=== PATIENT | female | born 1935 | race Caucasian/White ===

== ENCOUNTER 2022-05-20 19:55 | Outpatient (CLI) | payer MEDICARE, OTHER, SELFPAY | END 2022-05-20 19:56 | disposition home or self-care (01) | LOC: AMB 05-24 10:56 | PROVIDERS: PCP Internal Medicine; Visit Provider Emergency Medicine Emergency Medical Services | DX: I49.9 Cardiac arrhythmia, unspecified (principal); R42 Dizziness and giddiness | CPT/HCPCS: A0425; A0427 ==

== ENCOUNTER 2022-05-20 20:31 | Emergency (ER) | payer MEDICARE, OTHER, SELFPAY ==
[2022-05-20] VITALS (12 sets, daily range): BP systolic 119–143; BP diastolic 60–94; PULSE 68–99; RESP 10–14; TEMP 35.7; O2SAT 93–98; BMI 27.8
--- NOTE | 2022-05-20 20:56 | ED_ITS ---
HPI - Chest Pain General Time Seen by Provider: 20:57 Date Seen: 05/20/22 Chief Complaint: Chest Pain Stated Complaint: Heart problems Time Seen by Provider: 05/20/22 20:40 Source: patient Mode of arrival: EMS Limitations: no limitations History of Present Illness HPI narrative: Patient is a very pleasant 87-year-old female with history of hypertension who comes to the emergency room for evaluation regarding rapid heart rate. Patient was noted to have had a glass of wine with a neighbor this evening. She returned home ate supper and had the sudden onset of a rapid heart rate. She notes no chest pain or shortness of breath but certainly did cause her anxiety. She has never had this happen to his sustained phase in the past. Has no history of atrial fibrillation, atrial flutter or history of [place]. she has just recently started on a new medication for her hypertension, amlodipine. She has not been ill and she has not had fever or chills. No recent illness with COVID or vomiting. EMS arrived and noted rapid heart rate fortunately with Valsalva maneuvers they were able to convert patient to a sinus rhythm. She notes that she feels completely fine now and has no chest pain, shortness of breath, nausea, dizziness or lightheadedness. Ms. Gutierres is a [facility] . She currently sees Dr. Mohan for care [facility] Related Data Home Medications Medication Instructions Recorded Confirmed amlodipine 2.5 mg tablet mg 05/20/22 anastrozole 1 mg tablet mg 05/20/22 atorvastatin 80 mg tablet mg 05/20/22 hydrochlorothiazide 25 mg tablet 12.5 mg 05/20/22 lisinopril 40 mg tablet 20 mg 05/20/22 metoprolol succinate 25 mg mg PO 05/20/22 tablet,extended release 24 hr omeprazole 20 mg capsule,delayed mg 05/20/22 release Allergies Allergy/AdvReac Type Severity Reaction Status Date / Time No Known Drug Allergies Allergy Verified 05/20/22 20:44 Review of Systems Status of ROS Reports: 10 or more systems reviewed and unremarkable except as noted in History and below Const Denies: fever, chills or fatigue Eyes Denies: change in vision ENMT Denies: throat pain, neck pain, throat swelling or difficulty swallowing Cardio Denies: chest pain or shortness of breath with exertion Resp Denies: shortness of breath, cough or wheezing GI Reports: diarrhea (Occasionally with certain foods); Denies: abdominal pain, nausea, vomiting or difficulty swallowing Denies: painful urination or urinary frequency Musculo Denies: neck pain Integ/Breast Denies: rash Neuro Denies: headache, numbness in extremities or weakness in extremities Endo Denies: fatigue Allergy/Immuno Denies: throat swelling or wheezing PFSH PFSH Social History Smoking Status: Never smoker How often do you have a drink containing alcohol: 2-3 times a week How many standard drinks containing alcohol do you have on a typical day: 1 or 2 How often do you have six or more drinks on one occasion: Never AUDIT-C Alcohol total score: 3 Non-prescribed substance use: denies use Exam Narrative Exam Narrative: Mixed incontinence Pre-diabetes 09/2012 115@[facility] Obstructive sleep apnea Dxed summer 2012, followed by Dr. 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 [facility].This was found at the [facility] scan, and went from 4 cm to 4.6 cm. 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 Const Vital Signs, click to edit/add: Vital Signs - 24 hr 05/20/22 20:39 05/20/22 21:00 05/20/22 21:30 Temperature 96.2 F L Pulse Rate Pulse Rate [Left Pulse Oximeter] 99 90 90 Respiratory Rate 13 14 Blood Pressure Blood Pressure [Right Upper Arm] 134/69 121/81 121/94 H Pulse Oximetry 97 98 98 Oxygen Delivery Method Room Air Room Air Room Air 05/20/22 22:00 05/20/22 22:19 05/20/22 22:30 Temperature Pulse Rate 74 69 Pulse Rate [Left Pulse Oximeter] 79 Respiratory Rate 10 L Blood Pressure Blood Pressure [Right Upper Arm] 135/66 Pulse Oximetry 93 94 96 Oxygen Delivery Method Room Air 05/20/22 22:32 05/20/22 22:45 05/20/22 23:25 Temperature Pulse Rate 69 68 75 Pulse Rate [Left Pulse Oximeter] Respiratory Rate Blood Pressure 143/68 H Blood Pressure [Right Upper Arm] Pulse Oximetry 93 94 97 Oxygen Delivery Method 05/20/22 23:30 05/20/22 23:32 05/20/22 23:45 Temperature Pulse Rate 84 78 82 Pulse Rate [Left Pulse Oximeter] Respiratory Rate Blood Pressure 119/60 Blood Pressure [Right Upper Arm] Pulse Oximetry 96 95 94 Oxygen Delivery Method Patient is a very pleasant 87-year-old female looking younger than her stated age. She is nontoxic in appearance. Her neck is supple. She is mentating normally. Heart with regular rate and rhythm without murmur or rub. Lungs are clear bilaterally. Abdomen soft nontender. Lower extremities with scant peripheral edema. Moving all extremities. Documenting provider has reviewed patient's vital signs: yes Course Course Hospital Course: At this time will obtain CBC, comprehensive panel, troponin, EKG. 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 Patient appears to have resolved SVT based on rhythm strip from EMS. Will give 500 mL normal saline while awaiting laboratory values. Chest x-ray has also been ordered. Reevaluation(s) Reevaluation #1: Patient continues to be asymptomatic. She is informed that her potassium is low at 3.1 and relative deficiency of magnesium at 1.8. Vital Signs Vital signs: Initial Vital Signs Temperature 96.2 F L 05/20/22 20:39 Temperature Source Temporal Artery Scan 05/20/22 20:39 Pulse Rate 99 05/20/22 20:39 Blood Pressure 134/69 05/20/22 20:39 Blood Pressure Mean 90 05/20/22 20:39 Blood Pressure Position Supine 05/20/22 20:39 Pulse Oximetry 97 05/20/22 20:39 Oxygen Delivery Method 05/20/22 20:39 Vital Signs Temperature 96.2 F L 05/20/22 20:39 Pulse Rate 99 05/20/22 20:39 Blood Pressure 134/69 05/20/22 20:39 Pulse Oximetry 97 05/20/22 20:39 Oxygen Delivery Method 05/20/22 20:39 Temperature 96.2 F L 05/20/22 20:39 Pulse Rate 82 05/20/22 23:45 Respiratory Rate 10 L 05/20/22 22:00 Blood Pressure 119/60 05/20/22 23:32 Pulse Oximetry 94 05/20/22 23:45 Oxygen Delivery Method 05/20/22 22:00 MDM - Chest Pain MDM Narrative Medical decision making narrative: 1. SVT resolved -patient has had no further symptoms here. Troponin is negative. EKG shows sinus rhythm without any abnormalities. This is not happened to the patient in the past. She is back in a regular rhythm. Would continue to monitor at this point. Of note she has a magnesium level which is technically normal at 1.8 but relatively low in the setting of an arrhythmia. Therefore will give her 400 mg of p.o. magnesium at this time. Would have her continue magnesium daily at home. Patient has no persistent tachycardia or hypoxia to suggest PE. She has no chest pain or EKG changes to suggest acute coronary syndrome causing the SVT. She does have recent alcohol use in the setting of some mild hypokalemia. 2. Hypokalemia mild-level is at 3.1. Will replace with 50 mEq of potassium p.o. x1. 3. Left lung nodule-further assessment with CT with primary MD. copy of the [facility] x-ray and report given to patient to follow-up at the [facility]. She may need CT or if they are able to compare to previous x-ray we may be able to prove that this is stable. 4. Disposition-home at this time. Right now we are trying to find out how to get patient back to her home as there are no tact he is running, the roads are quite poor. Medical Records Data Attestation: I reviewed the patient's medical records. Lab Data Attestation: I reviewed the patient's lab results. Labs: Lab Results 05/20/22 05/20/22 05/20/22 Range/Units 21:05 21:05 21:20 WBC 6.16 (4.50-11.00) K/uL RBC 4.53 (4.00-5.20) m/uL Hgb 13.2 (12.0-16.0) gm/dL Hct 38.8 (33.0-51.0) % MCV 86 (80-100) fL MCH 29 (26-34) pg MCHC 34 (32-36) gm/dL RDW Coeff of [place] 13.6 (11.5-15.5) % Plt Count 198 (140-440) K/uL Neut % (Auto) 58.5 (42.0-72.0) % Lymph % (Auto) 30.7 (20-44) % [place] % (Auto) 6.8 (0.0-11.0) % Eos % (Auto) 3.4 (0.0-7.0) % Baso % (Auto) 0.3 (0.0-3.0) % Neut # (Auto) 3.60 (1.7-7.0) K/uL Lymph # (Auto) 1.89 (0.90-2.90) K/uL [place] # (Auto) 0.40 (0.00-0.90) K/UL Eos # (Auto) 0.21 (0.00-0.50) K/uL Baso # (Auto) 0.02 (0.00-0.30) K/uL Sodium (135-149) mmol/L Potassium (3.6-5.1) mmol/L Chloride (96-114) mmol/L Carbon Dioxide (20-32) mmol/L BUN (7-30) mg/dL Creatinine (0.5-1.5) mg/dL Estimated Creat Clear Estimated GFR ml/min Glucose (60-115) mg/dL Calcium (8.4-10.6) mg/dL Magnesium (1.5-2.6) mg/dL Total Bilirubin (0.1-1.5) mg/dL AST (12-35) U/L ALT (4-35) U/L Alkaline Phosphatase (40-150) U/L C-Reactive Protein (0.5-1.0) mg/dL Total Protein (6.0-8.3) g/dL Albumin (3.3-5.0) g/dL SARS-CoV-2 (PCR) Negative SARS-CoV-2 (Negative) Influenza Type A (PCR) Negative PCR FLU A (Negative) Influenza Type B (PCR) Negative PCR FLU B (Negative) RSV (PCR) Negative PCR RSV (Negative) POC Troponin I 0.00 L (0.01-0.04) ng/ml 05/20/22 Range/Units 21:20 WBC (4.50-11.00) K/uL RBC (4.00-5.20) m/uL Hgb (12.0-16.0) gm/dL Hct (33.0-51.0) % MCV (80-100) fL MCH (26-34) pg MCHC (32-36) gm/dL RDW Coeff of [place] (11.5-15.5) % Plt Count (140-440) K/uL Neut % (Auto) (42.0-72.0) % Lymph % (Auto) (20-44) % [place] % (Auto) (0.0-11.0) % Eos % (Auto) (0.0-7.0) % Baso % (Auto) (0.0-3.0) % Neut # (Auto) (1.7-7.0) K/uL Lymph # (Auto) (0.90-2.90) K/uL [place] # (Auto) (0.00-0.90) K/UL Eos # (Auto) (0.00-0.50) K/uL Baso # (Auto) (0.00-0.30) K/uL Sodium 135 (135-149) mmol/L Potassium 3.1 L (3.6-5.1) mmol/L Chloride 103 (96-114) mmol/L Carbon Dioxide 26 (20-32) mmol/L BUN 14 (7-30) mg/dL Creatinine 0.6 (0.5-1.5) mg/dL Estimated Creat Clear 34.23 Estimated GFR 87 ml/min Glucose 132 H (60-115) mg/dL Calcium 8.9 (8.4-10.6) mg/dL Magnesium 1.8 (1.5-2.6) mg/dL Total Bilirubin 0.6 (0.1-1.5) mg/dL AST 30 (12-35) U/L ALT 26 (4-35) U/L Alkaline Phosphatase 88 (40-150) U/L C-Reactive Protein < 0.5 L (0.5-1.0) mg/dL Total Protein 6.5 (6.0-8.3) g/dL Albumin 3.5 (3.3-5.0) g/dL SARS-CoV-2 (PCR) (Negative) Influenza Type A (PCR) (Negative) Influenza Type B (PCR) (Negative) RSV (PCR) (Negative) POC Troponin I (0.01-0.04) ng/ml Imaging Data Chest x-ray: Attestation: I have reviewed the pertinent imaging results. My impression: Chronic lung markings. Radiologist's impression: Cardiovascular and mediastinum:? Cardiomediastinal silhouette is within normal limits.? Lungs and pleural spaces:? Lungs are clear. Previously identified 14 millimeter nodule in the left upper lobe is not well visualized on the current examination. No imaging available since October 06, 2020 for comparison. If further evaluation is clinically indicated, consider CT of the chest. No evidence of pleural effusion.? No pneumothorax identified.? Bones and soft tissues:? Unremarkable. ? IMPRESSION: No acute cardiopulmonary process identified. No significant interval change. ECG Data Attestation: I personally reviewed and interpreted this ECG as follows: ECG interpretation date: 05/20/22 Interpretation: EKG by my read shows sinus rhythm at a rate of 90. I do not note any acute ST or T-wave changes. Rather poor R-wave progression is noted. Discharge Plan Discharge Clinical Impression: Lung nodule, SVT (supraventricular tachycardia), Acute hypokalemia Additional Instructions: [facility] We will provide a copy of the x-ray for you to take with. Suggest continuing magnesium on a daily basis. Increase fluids. Seek medical attention for chest pain, rapid heart rate and as needed. Prescriptions: No Action anastrozole 1 mg tablet Label Comments: TAKE 1 TABLET BY MOUTH EVERY DAY atorvastatin 80 mg tablet amlodipine 2.5 mg tablet hydrochlorothiazide 25 mg tablet 12.5 mg lisinopril 40 mg tablet 20 mg omeprazole 20 mg capsule,delayed release(DR/EC) metoprolol succinate 25 mg tablet extended release 24 hr PO Label Comments: TAKE 1 TABLET BY MOUTH EVERYDAY AT BEDTIME Follow Up/Referrals: Marisela Hurt MD [Primary Care Provider] -
--- NOTE | 2022-05-20 21:05 | CRLHL7_ITS ---
For Patients: As a result of the Cures Act, medical imaging exams and procedure reports are released immediately into your electronic medical record. You may view this report before your referring provider. If you have questions, please contact your health care provider. INDICATION: SVT. TECHNIQUE: Chest 1 view. COMPARISON: CT of the chest from October 06, 2020.. FINDINGS: Cardiovascular and mediastinum: Cardiomediastinal silhouette is within normal limits. Lungs and pleural spaces: Lungs are clear. Previously identified 14 millimeter nodule in the left upper lobe is not well visualized on the current examination. No imaging available since October 06, 2020 for comparison. If further evaluation is clinically indicated, consider CT of the chest. No evidence of pleural effusion. No pneumothorax identified. Bones and soft tissues: Unremarkable. IMPRESSION: No acute cardiopulmonary process identified. No significant interval change. Dictated by Keri Smith MD @ 05/20/2022 10:14:26 PM (Electronically Signed)
[2022-05-20 21:36] LABS: Basophils Absolute Auto 0.02 K/uL (0.00-0.30); Basophils Percent Auto 0.3 % (0.0-3.0); Eosinophils Absolute Auto 0.21 K/uL (0.00-0.50); Eosinophils Percent Auto 3.4 % (0.0-7.0); Hematocrit 38.8 % (33.0-51.0); Hemoglobin* 13.2 gm/dL (12.0-16.0); Immature Granulocytes Abs Auto 0.02 K/uL (0.00-0.30); Immature Granulocytes Pct Auto 0.3 %; Lymphocytes Absolute Auto 1.89 K/uL (0.90-2.90); Lymphocytes Percent Auto 30.7 % (20-44); Mean Corpuscular HGB Conc 34 gm/dL (32-36); Mean Corpuscular Hemoglobin 29 pg (26-34); Mean Corpuscular Volume 86 fL (80-100); Monocytes Percent Auto 6.8 % (0.0-11.0); Neutrophils Percent Auto 58.5 % (42.0-72.0); Platelet Count* 198 K/uL (140-440); RDW Coefficient of Variation % 13.6 % (11.5-15.5); Red Blood Count 4.53 m/uL (4.00-5.20); White Blood Count* 6.16 K/uL (4.50-11.00)
[2022-05-20 21:39] LABS: Slide Review Reflex No
[2022-05-20 21:56] LABS: Albumin* 3.5 g/dL (3.3-5.0); Chloride* 103 mmol/L (96-114); Potassium* 3.1 mmol/L (3.6-5.1); Sodium* 135 mmol/L (135-149)
[2022-05-20 21:57] LABS: PCR FLU A Negative PCR FLU A (Negative); PCR FLU B Negative PCR FLU B (Negative); PCR RSV Negative PCR RSV (Negative); SARS PCR* Negative SARS-CoV-2 (Negative)
[2022-05-20 21:58] LABS: Bilirubin Total* 0.6 mg/dL (0.1-1.5); Creatinine* 0.6 mg/dL (0.5-1.5); Est. Creatinine Clearance* 34.23; Estimated Glomerular Filt Rate 87 ml/min
[2022-05-20 21:59] LABS: Alanine Aminotransferase* 26 U/L (4-35); Alkaline Phosphatase* 88 U/L (40-150); Aspartate Amino Transferase* 30 U/L (12-35); Blood Urea Nitrogen* 14 mg/dL (7-30); Carbon Dioxide* 26 mmol/L (20-32); Total Protein* 6.5 g/dL (6.0-8.3)
[2022-05-20 22:00] LABS: Calcium* 8.9 mg/dL (8.4-10.6); Glucose* 132 mg/dL (60-115); Magnesium* 1.8 mg/dL (1.5-2.6)
[2022-05-20] MEDS: 0.9 % SODIUM CHLORIDE 500 ML 500 ML IV (22:00)
[2022-05-20 22:03] LABS: C Reactive Protein* < 0.5 mg/dL (0.5-1.0)
[2022-05-20] MEDS: POTASSIUM BICARB 25 MEQ EFFERVESCENT TAB 50 MEQ PO (23:00)
[2022-05-20] MEDS: MAGNESIUM OXIDE 400 MG TABLET PO (23:08)
[2022-05-21 00:15] VITALS: BP 135/66; PULSE 79; RESP 16; TEMP 36.7
== END 2022-05-21 00:15 | disposition home or self-care (01) ==
LOC: ED 21:13
PROVIDERS: Emergency Provider Family Medicine; PCP Internal Medicine
DX: E87.6 Hypokalemia (principal); I47.1 Supraventricular tachycardia; R91.1 Solitary pulmonary nodule
CPT/HCPCS: 36415; 71045; 80053; 83735; 84484; 85025; 86140; 87502; 87634; 87635; 93005; 94761; 99284; 99285; A9270; J7120

== ENCOUNTER 2023-03-31 14:34 | Emergency (ER) | payer MEDICARE, OTHER, SELFPAY ==
[2023-03-31 14:41] VITALS: BP 128/80; PULSE 81; RESP 18; TEMP 36.6; O2SAT 95; BMI 28.0
[2023-03-31 15:15] LABS: Appearance Urine Clear (Clear); Bilirubin Urine Negative (Negative); Blood Urine 3+ (Negative); Color Urine Yellow (Yellow); Glucose Urine Negative (Negative); Ketones Urine Negative (Negative); Leukocyte Esterase Urine 3+ (Negative); Nitrite Urine Negative (Negative); Protein Urine 3+ (Negative); Specific Gravity Urine >= 1.030 (1.000-1.030)
[2023-03-31 15:22] LABS: RBC Urine 25-50 (0-2); WBC Urine >100 (0-5)
--- NOTE | 2023-03-31 15:22 | ED.GENADULT ---
HPI - General Adult General Chief complaint: Urogenital Problems, Female Stated complaint: Bladder infection Time Seen by Provider: 03/31/23 14:38 Source: patient Mode of arrival: ambulatory Limitations: no limitations History of Present Illness HPI narrative: 88-year-old female presenting today with dysuria, increased urgency and some incontinence. Symptoms started early this morning. She denies any systemic symptoms. States that she has had UTIs made times in the past and this feels very similarly to previous UTIs. Has no other concerns. Related Data Home Medications Medication Instructions Recorded Confirmed amlodipine 2.5 mg tablet 2.5 mg 05/20/22 anastrozole 1 mg tablet 1 mg 05/20/22 atorvastatin 80 mg tablet 80 mg 05/20/22 hydrochlorothiazide 25 mg tablet 12.5 mg PO 05/20/22 lisinopril 40 mg tablet 20 mg PO 05/20/22 metoprolol succinate 25 mg 50 mg PO 05/20/22 tablet,extended release 24 hr omeprazole 20 mg capsule,delayed 20 mg 05/20/22 release Previous Rx's Medication Instructions Recorded cephalexin 500 mg capsule 500 mg PO BID #10 caps 10/22/22 Allergies Allergy/AdvReac Type Severity Reaction Status Date / Time No Known Drug Allergies Allergy Verified 05/20/22 20:44 Review of Systems Status of ROS: Reports: 10 or more systems reviewed and unremarkable except as noted in History and below [facility] Social History Smoking Status: Never smoker How often do you have a drink containing alcohol: 2-3 times a week How many standard drinks containing alcohol do you have on a typical day: 1 or 2 How often do you have six or more drinks on one occasion: Never AUDIT-C Alcohol total score: 3 Non-prescribed substance use: denies use Exam Narrative: Exam Narrative: Well-nourished well-developed patient in no acute distress. Alert and oriented. Answers questions appropriately. Mood and affect are appropriate. Thoughts are goal oriented and rational. No tangential or magical thinking noted. Patient speaks in full sentences without needing to catch her breath. HEENT: Normocephalic atraumatic. Pupils are equally round reactive to light. Extraocular muscles are intact. Conjunctivae are moist without any icterus noted. Moist mucous membranes. Abdomen: Soft and nontender nondistended with normal bowel sounds. No guarding or rebound. No CVA tenderness. Skin: Well perfused without any obvious rashes. Const: Vital Signs, click to edit/add: Vital Signs - 24 hr 03/31/23 14:41 Temperature 97.9 F Pulse Rate [Pulse Oximeter] 81 Respiratory Rate 18 Blood Pressure [Ri ght Upper Arm] 128/80 Pulse Oximetry 95 Oxygen Delivery Me thod Room Air Course Course ED Course: UA grossly positive for signs of infection. Vital Signs Vital signs: Initial Vital Signs Temperature 97.9 F 03/31/23 14:41 Temperature Source Temporal Artery Scan 03/31/23 14:41 Pulse Rate 81 03/31/23 14:41 Respiratory Rate 18 03/31/23 14:41 Blood Pressure 128/80 03/31/23 14:41 Blood Pressure Mean 96 03/31/23 14:41 Pulse Oximetry 95 03/31/23 14:41 Oxygen Delivery Method Room Air 03/31/23 14:41 Vital Signs Temperature 97.9 F 03/31/23 14:41 Pulse Rate 81 03/31/23 14:41 Respiratory Rate 18 03/31/23 14:41 Blood Pressure 128/80 03/31/23 14:41 Pulse Oximetry 95 03/31/23 14:41 Oxygen Delivery Method Room Air 03/31/23 14:41 Temperature 97.9 F 03/31/23 14:41 Pulse Rate 81 03/31/23 14:41 Respiratory Rate 18 03/31/23 14:41 Blood Pressure 128/80 03/31/23 14:41 Pulse Oximetry 95 03/31/23 14:41 Oxygen Delivery Method Room Air 03/31/23 14:41 Medical Decision Making [facility] Narrative Medical decision making narrative: 88-year-old female with UTI. Will treat with Keflex 500 b.i.d. which is what she has had in the past with success. Urine cultures pending. Lab Data Lab results reviewed: Yes I reviewed the patient's lab results Labs: Lab Results 03/31/23 Range/Units 14:25 Urine Color Yellow (Yellow) Urine Appearance Clear (Clear) Urine pH 7.0 (5.0-8.5) Ur Specific [place] >= 1.030 (1.000-1.030) Urine Protein 3+ A (Negative) Urine Glucose (UA) Negative (Negative) Urine Ketones Negative (Negative) Urine Blood 3+ A (Negative) Urine Nitrite Negative (Negative) Urine Bilirubin Negative (Negative) Urine Urobilinogen 1.0 (0.2-1.0) Ur Leukocyte Esterase 3+ A (Negative) Discharge Plan Discharge Clinical Impression: Urinary tract infection Patient Disposition: Home, Self-Care Condition: Stable Additional Instructions: Take all antibiotics as prescribed-you should take this medication for total of 5 days. Follow-up with your primary care provider if you feel like you are not improving. Return to the ER if you develop a fever. Antibiotics sent to [facility]. Prescriptions: No Action anastrozole 1 mg tablet 1 mg Patient Comments: TAKE 1 TABLET BY MOUTH EVERY DAY atorvastatin 80 mg tablet 80 mg amlodipine 2.5 mg tablet 2.5 mg hydrochlorothiazide 25 mg tablet 12.5 mg PO lisinopril 40 mg tablet 20 mg PO omeprazole 20 mg capsule,delayed release(DR/EC) 20 mg metoprolol succinate 25 mg tablet extended release 24 hr 50 mg PO Patient Comments: TAKE 1 TABLET BY MOUTH EVERYDAY AT BEDTIME cephalexin 500 mg capsule 500 mg PO BID Qty: 10 0RF Follow Up/Referrals: Provider,Not a Local [Primary Care Provider] - Stand Alone Forms: [employer] Info Instructions
[2023-03-31 15:23] LABS: Bacteria Urine Few; Squamous Epithelial Cell Urine Few (None-Few); WBC Clumps Urine Moderate
== END 2023-03-31 15:55 | disposition home or self-care (01) ==
PROVIDERS: Emergency Provider Family Medicine
DX: N39.0 Urinary tract infection, site not specified (principal)
CPT/HCPCS: 81001; 87086; 87186; 99283

== ENCOUNTER 2023-05-24 16:04 | Emergency (ER) | payer MEDICARE, OTHER, SELFPAY ==
[2023-05-24 16:08] VITALS: BP 150/79; PULSE 75; RESP 18; TEMP 35.6; O2SAT 98; BMI 27.5
[2023-05-24 16:30] LABS: Appearance Urine Slightly Cloudy (Clear); Bilirubin Urine Negative (Negative); Blood Urine Trace-intact (Negative); Color Urine Yellow (Yellow); Glucose Urine Negative (Negative); Ketones Urine Negative (Negative); Leukocyte Esterase Urine 2+ (Negative); Nitrite Urine Negative (Negative); Protein Urine Negative (Negative); Urobilinogen Urine 0.2 (0.2-1.0)
[2023-05-24 17:24] LABS: Bacteria Urine Few; Squamous Epithelial Cell Urine Few (None-Few)
--- NOTE | 2023-05-24 19:40 | ED.GENADULT ---
HPI - General Adult General Date Seen: 05/24/23 Chief complaint: Urogenital Problems, Female Stated complaint: bladder infection Time Seen by Provider: 05/24/23 17:59 Source: patient Mode of arrival: ambulatory Limitations: no limitations History of Present Illness HPI narrative: Patient presents for onset of urinary symptoms earlier today including dysuria, frequency urgency. She says she waits long enough she will get hematuria but she does not have hematuria yet. No fevers, nausea, vomiting, chills, flank pain. She says UTIs are frequent for and this feels like a UTI. Related Data Home Medications Medication Instructions Recorded Confirmed anastrozole 1 mg tablet 1 mg 05/20/22 atorvastatin 80 mg tablet 80 mg 05/20/22 hydrochlorothiazide 25 mg tablet 12.5 mg PO 05/20/22 lisinopril 40 mg tablet 20 mg PO 05/20/22 metoprolol succinate 25 mg 50 mg PO 05/20/22 tablet,extended release 24 hr omeprazole 20 mg capsule,delayed 20 mg 05/20/22 release Previous Rx's Medication Instructions Recorded cephalexin 500 mg capsule 500 mg PO BID #10 caps 10/22/22 Allergies Allergy/AdvReac Type Severity Reaction Status Date / Time No Known Drug Allergies Allergy Verified 05/20/22 20:44 PFSH PFS Social History Smoking Status: Never smoker How often do you have a drink containing alcohol: 2-3 times a week How many standard drinks containing alcohol do you have on a typical day: 1 or 2 How often do you have six or more drinks on one occasion: Never AUDIT-C Alcohol total score: 3 Non-prescribed substance use: denies use Exam Narrative: Exam Narrative: Vital signs reviewed In general, alert, well-appearing elderly woman. Abdomen: Soft nontender. Back no CVA tenderness. Skin: Warm dry well perfused. Const: Vital Signs, click to edit/add: Vital Signs - 24 hr 05/24/23 16:08 Temperature 96.1 F L Pulse Rate [Pulse Oximeter] 75 Respiratory Rate 18 Blood Pressure [Ri ght Upper Arm] 150/79 H Pulse Oximetry 98 Oxygen Delivery Me thod Room Air Documenting provider has reviewed patient's vital signs: yes Course Course ED Course: UA is highly suggestive of urinary tract infection with 10-25 white blood cells, 2-5 red blood cells, few bacteria. Sent for culture. Will treat with Keflex, return for new symptoms such as fever, chills, flank pain, vomiting. Primary care follow-up if not feeling improved in 48 hours. Vital Signs Vital signs: Initial Vital Signs Temperature 96.1 F L 05/24/23 16:08 Temperature Source Temporal Artery Scan 05/24/23 16:08 Pulse Rate 75 05/24/23 16:08 Respiratory Rate 18 05/24/23 16:08 Blood Pressure 150/79 H 05/24/23 16:08 Blood Pressure Mean 102 05/24/23 16:08 Blood Pressure Position Sitting 05/24/23 16:08 Pulse Oximetry 98 05/24/23 16:08 Oxygen Delivery Method Room Air 05/24/23 16:08 Vital Signs Temperature 96.1 F L 05/24/23 16:08 Pulse Rate 75 05/24/23 16:08 Respiratory Rate 18 05/24/23 16:08 Blood Pressure 150/79 H 05/24/23 16:08 Pulse Oximetry 98 05/24/23 16:08 Oxygen Delivery Method Room Air 05/24/23 16:08 Temperature 96.1 F L 05/24/23 16:08 Pulse Rate 75 05/24/23 16:08 Respiratory Rate 18 05/24/23 16:08 Blood Pressure 150/79 H 05/24/23 16:08 Pulse Oximetry 98 05/24/23 16:08 Oxygen Delivery Method Room Air 05/24/23 16:08 Medical Decision Making Lab Data Labs: Lab Results 05/24/23 Range/Units 16:15 Urine Color Yellow (Yellow) Urine Appearance Slightly Cloudy A (Clear) Urine pH 7.0 (5.0-8.5) Ur Specific [place] 1.020 (1.000-1.030) Urine Protein Negative (Negative) Urine Glucose (UA) Negative (Negative) Urine Ketones Negative (Negative) Urine Blood Trace-intact A (Negative) Urine Nitrite Negative (Negative) Urine Bilirubin Negative (Negative) Urine Urobilinogen 0.2 (0.2-1.0) Ur Leukocyte Esterase 2+ A (Negative) Urine RBC 2-5 A (0-2) Urine WBC 10-25 A (0-5) Ur Squamous Epith Cells Few (None-Few) Urine Bacteria Few A (None) Discharge Plan Discharge Clinical Impression: Urinary tract infection Patient Disposition: Home, Self-Care Condition: Stable Instructions: Urinary Tract Infection in Older Adults (ED) Additional Instructions: Antibiotic as prescribed. Primary care follow-up as needed. Return at any time for acute worsening such as fevers, flank pain, vomiting, etcetera. Prescriptions: No Action anastrozole 1 mg tablet 1 mg Patient Comments: TAKE 1 TABLET BY MOUTH EVERY DAY atorvastatin 80 mg tablet 80 mg hydrochlorothiazide 25 mg tablet 12.5 mg PO lisinopril 40 mg tablet 20 mg PO omeprazole 20 mg capsule,delayed release(DR/EC) 20 mg metoprolol succinate 25 mg tablet extended release 24 hr 50 mg PO Patient Comments: TAKE 1 TABLET BY MOUTH EVERYDAY AT BEDTIME cephalexin 500 mg capsule 500 mg PO BID Qty: 10 0RF Follow Up/Referrals: Provider,Not a Local [Primary Care Provider] - Stand Alone Forms: [facility] Info Instructions
== END 2023-05-24 18:20 | disposition home or self-care (01) ==
LOC: ED 18:10
PROVIDERS: Emergency Provider Emergency Medicine
DX: N39.0 Urinary tract infection, site not specified (principal)
CPT/HCPCS: 81001; 87086; 87186; 99283

== ENCOUNTER 2023-06-24 08:33 | Outpatient (CLI) | payer OTHER, SELFPAY ==
--- OUTSIDE RECORDS SUMMARY | 2023-06-24 08:37 | XMS_ITS | Encounter Summary ---
Author Name [facility] Organization [facility] Address [address] [place] [address] Insurance Providers: All historical and current Section Date Range: From patient's date of to the date document was created. This section includes the names of all active insurance providers for the patient. Insurance Provider Type of Coverage Plan Name Start of Policy Coverage End of Policy Coverage Group Number Member ID Insurance Provider's Telephone Number Policy Talavera's Name Patient's Relationship to Policy Talavera [facility] ([id number]) PRESCRIPT ION GEHA May 30, 2005 [id number] SONIA MOBLEY PATIENT GEHA (SECONDARY ) PREFERRED PROVIDER ORGANIZAT ION (PPO) GEHA A&B PRIMA RY May 30, 2005 [id number] SONIA MOBLEY PATIENT GEHA (SECONDARY ) PREFERRED PROVIDER ORGANIZAT ION (PPO) GEHA A/B PRIMA RY May 30, 2005 [id number] [phone] SONIA MOBLEY PATIENT [facility] PREFERRED PROVIDER ORGANIZAT ION (PPO) DO NOT USE May 30, 2005 [id number] TONI BRITO PATIENT MEDICARE (WNR) MEDICARE (M) PART A Jan 29, 2000 PART A [id number] SONIA MOBLEY PATIENT MEDICARE (WNR) MEDICARE (M) PART B Jan 29, 2000 PART B [id number] [phone] SONIA MOBLEY PATIENT Selected Encounter This section includes the information on record at [place] for the Encounter. Date/Time Encounter Type Encounter Description Reason Provider Source Jun 29, 2022 09:45 AM OFFICE O/P EST MOD 30-39 MIN COMP [facility] ICD-10-CM I47.1 Supraventricular tachycardia DOMINIC TREJO [facility] Encounter Template Text not used by [place] Assessments - Encounter Diagnoses This section includes the primary and secondary diagnoses documented for the Encounter. Date/Time Primary/Secondary Diagnosis Diagnosis Name Provider Source Jun 30, 2022 01:47 PM PRIMARY Supraventricular tachycardia DOMINIC TREJO [facility] Plan of Treatment: Future Appointments (+ 6 months) and Future Tests (+/- 45 days) The Plan of Treatment section includes future care activities for the patient [facility] [place] [facility] This section includes future appointments and future orders which are active, pending or scheduled. Future Appointments This section includes appointments that were scheduled to occur 6 months from the date of the Encounter, up to a maximum of 20 appointments. The data comes from all [place] treatment facilities. Appointment Date/Time Appointment Type Appointme nt Facility Name Aug 09, 2022 07:30 AM AMBULATORY - NONE [facility] Aug 09, 2022 09:15 AM AMBULATORY - MEDICINE [facility] Aug 09, 2022 09:30 AM AMBULATORY - MEDICINE [facility] Aug 09, 2022 10:30 AM AMBULATORY - MEDICINE [facility] October 18, 2022 10:00 AM AMBULATORY - MEDICINE [facility] October 18, 2022 10:45 AM AMBULATORY - NONE [facility] October 18, 2022 11:15 AM AMBULATORY - NONE [facility] Nov 02, 2022 10:45 AM AMBULATORY - MEDICINE [facility] Lab Results: +/- 30 days of the encounter This section includes the Chemistry and Hematology Lab Results on record with [place] for the patient. Radiology Reports and Pathology Reports are provided separately, in subsequent sections. Lab Results This section contains the Chemistry/Hematology Results that were resulted 30 days before or 30 daysafter the date of the Encounter. Date/Time Source Result Type Result - Unit Interpretation Reference Range Comment Jun 29, 2022 11:21 AM [facility] BASIC METABOLIC PANEL+MG Specimen Type: PLASMA No comment entered. Ordering Provider: DOMINIC TREJO Report Released Date/Time: Jun 29, 2022 10:17 AM Reporting Lab: [facility] [id number] Performing Lab: [facility] [id number] CREATININE 0.6 0.5-1.0 UREA NITROGEN 15 7-20 GLUCOSE 94 70-100 SODIUM 141 136-145 POTASSIUM 3.9 3.5-5.1 CHLORIDE 108 H 98-107 CO2 27 22-29 CALCIUM 9.2 8.4-10.2 MAGNESIUM 1.9 1.6-2.6 ANION GAP 6 5-15 CREAT EGFR(CKD-EPI ) 87 >60 Jun 29, 2022 11:21 AM [facility] TSH W/REFLEX TO FREE T4 Specimen Type: PLASMA No comment entered. Ordering Provider: ALBARO AGUILLON Report Released Date/Time: Jun 29, 2022 11:24 AM Reporting Lab: [facility] [id number] Performing Lab: [facility] [id number] TSH 0.62 0.35-4.94 Vital Signs: All taken on the encounter date This section contains inpatient and outpatient Vital Signs collected on the date of the Encounter. Date/Time Temperature Pulse Blood Pressure Respiratory Rate SP02 Pain Height Weight Body Mass Index Source Jun 29, 2022 09:44 AM 142/76 mm[Hg] [facility] Jun 29, 2022 09:37 AM 98 /min 146/78 mm[Hg] 16 /min 96 % 0 165.3 lb 31 [facility] Social History: Smoking Status (Most current) and Tobacco Use (All prior to encounter date) This section includes the most current, and the historical, smoking and tobacco- related health factors from the [place] facility where the Encounter took place. Current Smoking Status This section includes the most current smoking, or tobacco-related health factor, from the [place] facility where the Encounter took place. Date/Time Current Smoking Status Comment Robyn ity September 28, 2021 09:30 AM [place]-TOBACCO NEVER USED [facility] Tobacco Use History This section includes a history of the smoking, or tobacco-related health factors, that were collected on or before the date of the Encounter. The data comes from the [place] facility where the Encounter took place. Date/Time Smoking Status/Tobacco Use Comment F acility Nov 10, 2020 08:30 AM [place]-TO[place]AC[place] NEVER USED [facility] Encounter Notes: All associated encounter notes This section contains the clinical notes associated to the Encounter. Date/Time Encounter Note(s) Provider Source Jun 29, 2022 10:07 AM [facility] OUT ATIENT E & M NOTE: LOCAL TITLE: [facility] NOTE STANDARD TITLE: [facility] OUTPATIENT E & M NOTE DATE OF NOTE: JUN 29, 2022@10:07 ENTRY DATE: JUN 29, 2022@10:07:58 AUTHOR: ANDREEA HERNANDEZ EXP COSIGNER: URGENCY: STATUS: COMPLETED [facility] NOTE Has ADDENDA Assessment/Plan: The patient is a 87 yo FEMALE who comes in for ED f/u. 1. Symptomatic SVT, two episodes Two episodes of symptomatic SVT (the latter of which included pre-syncopal symptoms). K mildly low, will recheck today. Given recurrent episode and pre- syncompal symptoms will refer to EP for evaluation of ablation vs medical management. -EP Referral -Repeat BMP today Patient seen and staffed with Dr. Ventura. Torsten Hernandez MD Med-Peds PGY3 [facility] ---- Nurse's Notes Reviewed. Chief Complaint: ED f/u for SVT S: The patient is a 87 yo FEMALE who comes in today for follow up on an ED visit for SVT. On 05/20/22 she was sitting at home drinking a glass of wine when she felt her heart racing. She had no chest pain or SOB, but could distinctly feel that her heart was racing. A fellow resident who is a retired RN came down to listen to her heart and recommended she go in to the ED. They called EMS, who found her to be in SVT with a rate of about 160. They successfully led her through vagal maneuvers, which terminated the arrhythmia and restored her to NSR. She stayed in NSR through the ambulance ride and for her whole ED stay. Labs showed K of 3.1 and Mg of 1.8, both were replaced orally. She was discharged home with oral magnesium to take daily and with plans to follow up with PCP. One week ago, she felt her heart racing again. Again, she had no chest pain or SOB, but this time she felt dizzy as if she were about to pass out. She was able to get to her bed and lie down. The heart racing went away on its own after a short time. No other episodes before or after these two. She is otherwise feeling fine and has no other concerns today. Medication and Allergies are reviewed and updated. Past medical history/Active Problems: Active Problems: Active problems - Computerized Problem List is the source for the followin. CAD - Coronary artery disease - Non-obstructive on angio 11/2007 (40% mid LAD, 40% prox LCx, 20% distal RCA, 30% PDA) - PET Myocardial Perfusion 06/2020: EF 71%; small area of mild ischemia in apical lateral wall and mild nontransmural infarction basal anterolateral wall 2. Osteopenia - R humerus fracture 2015; T score at L femoral neck -1.3 03/2017 - Started aledronate (35mg weekly) 03/2017 3. Giant cell arteritis - 2011 4. Polymyalgia rheumatica 5. Prediabetes ([facility] [id number]) 6. 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 ([facility] [id number]) - L breast, 1.2 cm, 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; ER/IL pos, HER2 neg. - pT1c, N0, M0-Stage 1A - s/p lumpectomy 06/2014, radiation therapy - On Anastrazole since 07/2014 7. History of cholecystectomy 8. History of total knee arthroplasty - R knee 9. Peripheral vascular disease - s/p stenting Femoral artery, 2008 10. Sleep Apnea ([facility] [id number]) 11. Benign essential hypertension 12. Thoracic aortic aneurysm without rupture Review of Systems: See HPI. Social History: Lives in a halfway community in [place]. Has adult children and grandchildren nearby. Tobacco/ETOH Use: Has a glass of wine about once per week. Physical Exam: Vitals: BP: 142/76 (06/29/2022 09:44) P: 98 (06/29/2022 09:37) R: 16 (06/29/2022 09:37) T: 97.2 F [36.2 C] (01/18/2022 09:32) WT: 165.3 lb [74.98 kg] (06/29/2022 09:37) O2 Sat: 96% (06/29/2022 09:37) BMI: 30.8 BMI > 25 Assessment General: Well-appearing woman in NAD. 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 I agree with the treatment plan as outlined. This plan was reviewed with the resident on the date of this note. Also increased metoprolol to 50mg qday /talat Sales MD STAFF PHYSICIAN Signed: 06/30/2022 13:47 ANDREEA HERNANDEZ [facility] Jun 29, 2022 09:39 AM [facility] NOTE: [facility]AL T[facility] STANDARD TITLE: [facility] NOTE DATE OF NOTE: JUN 29, 2022@09:39 ENTRY DATE: JUN 29, 2022@09:39:14 AUTHOR: MALCOLM VALLADARES COSIGNER: URGENCY: STATUS: COMPLETED TYPE OF VISIT: Appointment Check In Type of appointment: In-person appointment REASON FOR VISIT: f/u from ED ALLERGIES: Patient has answered NKA VITAL SIGNS: Blood Pressure: 146/78 (06/29/2022 09:37) recheck bp 142/76 took bp medicaiton today, has a bp monitor and is asymptomatic. Pulse: 98 (06/29/2022 09:37) Respiration: 16 (06/29/2022 09:37) Temperature: 97.2 F [36.2 C] (01/18/2022 09:32) Weight: 165.3 lb [74.98 kg] (06/29/2022 09:37) Height: 61.5 in [156.2 cm] (03/16/2022 10:04) BMI: 30.8 O2 Sat: 96% (06/29/2022 09:37) Pain: 0 (06/29/2022 09:37) PAIN SCREEN: Patient is not having significant pain that they wish to discuss with their provider today. MEDICATION Over the Counter/Herbal Medications: The patient denies taking any outside medications or herbals. 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 The /caregiver was informed that we will continue to ask this screening question every 5 years. They can contact their provider/healthcare team if they have concerns about exposures and would like to be screened sooner. Printed information was offered and provided if desired. /baltazar/ MALCOLM VALLADARES LPN LICENSED PRACTICAL NURSE Signed: 06/29/2022 09:44 MALCOLM VALLADARES [facility]
--- OUTSIDE RECORDS SUMMARY | 2023-06-24 08:37 | XMS_ITS | Continuity of Care Document ---
Author Name [facility] Organization [facility] Care Team Providers Care Orderly Name Role Phone [facility] Unavailable Unavailable Problems Combined list of problems from Department of Defense and Veterans Affairs facilities. It does not include entries that were removed or entered in error. Problem Status Onset Date Problem Type Date of Resolution Comments Source Benign essential hypertension Active Condition [facility] CAD - Coronary artery disease Active Condition Mar 16, 2021 Entered By: DOMINIC TREJO Comment: Non-obstructive on angio 11/2007 (40% mid LAD, 40% prox LCx, 20% distal RCA, 30% PDA)Mar 16, 2021 Entered By: DOMINIC TREOJ Comment: PET Myocardial Perfusion 06/2020: EF 71%; small area of mild ischemia in apical lateral wall and mild nontransmural infarction basal anterolateral wall 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 Giant cell arteritis Active Condition Mar 16, 2021 Entered By: DOMINIC TREJO Comment: 2011 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 Osteopenia Active Condition Mar 26 Entered By: DOMINIC TREJO Comment: R humerus fracture 2015; T score at L femoral neck -1.3 2020 Entered By: DOMINIC TREJO Comment: Started aledronate (35mg weekly) 03/2017 [facility] Peripheral vascular disease Active Condition Nov 17, 2020 Entered By: DOMINIC TREJO Comment: s/p stenting Femoral artery, 2008 [facility] Polymyalgia rheumatica Active Condition [facility] Prediabetes ([facility] [id number]) Active Condition [facility] Sleep Apnea ([facility] [id number]) Active Condition [facility] Thoracic aortic aneurysm without rupture Active Condition [facility] Diagnosis: ICD-10-CM Z71.9 Counseling, unspecified Active Diagnosis 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 Diagnosis: ICD-10-CM G51.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, left Active Diagnosis [facility] Diagnosis: ICD-10-CM L98.9 Disorder of the skin and subcutaneous tissue, unspecified Active Diagnosis [facility] Diagnosis: ICD-10-CM C44.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 Active Diagnosis 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 Diagnosis: ICD-10-CM M25.572 Pain in left ankle and joints of left foot Active Diagnosis [facility] Diagnosis: ICD-10-CM M25.571 Pain in right ankle and joints of right foot Active Diagnosis [facility] Diagnosis: ICD-10-CM L82.1 Other seborrheic keratosis Active Diagnosis [facility] Diagnosis: ICD-10-CM I47.1 Supraventricular tachycardia Active Diagnosis [facility] Diagnosis: ICD-10-CM I49.8 Other specified cardiac arrhythmias Active Diagnosis [facility] Diagnosis: ICD-10-CM Z23 Encounter for immunization Active Diagnosis [facility] Diagnosis: ICD-10-CM I10 Essential (primary) hypertension Active Diagnosis [facility] Diagnosis: ICD-10-CM I73.9 Peripheral vascular disease, unspecified Active Diagnosis [facility] Diagnosis: ICD-10-CM C50.919 Malignant neoplasm of unsp site of unspecified female breast Active Diagnosis [facility] Diagnosis: ICD-10-CM Z00.00 Encntr for general adult medical exam w/o abnormal findings Active Diagnosis [facility] Diagnosis: ICD-10-CM R60.9 Edema, unspecified Active Diagnosis [place] [facility] Diagnosis: ICD-10-CM M62.81 Muscle weakness (generalized) Active Diagnosis [facility] Medications Combined list of outpatient medications from Department of Defense and Veterans Affairs facilities.Medications provided include 1) outpatient medications from the last 15 months, and 2) patient-reported medications. Medication Details Route Status Patient Instructions Prescription Expires Prescription Number Last Dispense Date Ordering Provider Order Date Source AMLODIPINE BESYLATE 2.5MG TAB TAKE ONE TABLET BY MOUTH EVERY DAY FOR BLOOD PRESSURE ORALLY DISCONT INUED 08/11/2023 [id number] DOMINIC TREJO 2022 [facility] AMLODIPINE BESYLATE 2.5MG TAB TAKE ONE TABLET BY MOUTH EVERY DAY FOR BLOOD PRESSURE ORALLY DISCONT INUED (EDIT) 04/20/2023 [id number] 3 MIC LUCAS 2021 [facility] AMLODIPINE BESYLATE 5MG TAB TAKE ONE TABLET BY MOUTH EVERY DAY FOR BLOOD PRESSURE ORALLY DISCONT INUED 01/25/2024 [id number] 3 ORQUIDEA LEBRON 2022 [facility] ANASTROZOLE 1MG TAB TAKE ONE TABLET BY MOUTH EVERY DAY FOR BREAST CANCER ORALLY DISCONT INUED 02/11/2024 [id number] 3 ORQUIDEA LEBRON 2022 [facility] ANASTROZOLE 1MG TAB TAKE ONE TABLET BY MOUTH EVERY DAY FOR BREAST CANCER ORALLY DISCONT INUED (EDIT) 08/11/2023 [id number] 3 DOMINIC TREJO 2022 [facility] ANASTROZOLE 1MG TAB TAKE ONE TABLET BY MOUTH EVERY DAY ORALLY DISCONT INUED (EDIT) 03/17/2023 [id number] 3 DOMINIC TREJO 2022 [facility] ASPIRIN 81MG TAB,CHEWABL E CHEW ONE TABLET BY MOUTH EVERY DAY ORALLY ACTIVE 03/15/2024 [id number] 4 GOMEZ DOMINIC ELY 2022 [place] [facility] ASPIRIN 81MG TAB,CHEWABL E CHEW ONE TABLET BY MOUTH EVERY DAY ORALLY DISCONT INUED 03/17/2023 [id number] 3 DOMINIC TREJO 2022 [place] [facility] ATORVASTATI N CA 80MG TAB TAKE ONE TABLET BY MOUTH EVERY DAY FOR CHOLESTE ROL ORALLY ACTIVE 02/11/2024 [id number] 3 ORQUIDEA LEBRON 2022 [place] [facility] ATORVASTATI N CA 80MG TAB TAKE ONE TABLET BY MOUTH EVERY DAY FOR CHOLESTE ROL ORALLY DISCONT INUED (EDIT) 08/11/2023 [id number] 3 [facility]REJO 2022 [facility] CALCIUM 250MG/VITAM IN D 125UNT TAB TAKE 2 TABLETS BY MOUTH EVERY DAY ORALLY ACTIVE 03/15/2024 [id number] 3 GOMEZ DOMINIC ELY 2022 [place] [facility] CALCIUM 250MG/VITAM IN D 125UNT TAB TAKE 2 TABLETS BY MOUTH EVERY DAY ORALLY DISCONT INUED 03/17/2023 [id number] 3 DOMINIC TREJO 2022 [facility] CHOLECALCIF GAURAV 25MCG (1,000UNIT) TAB TAKE TWO TABLETS BY MOUTH EVERY DAY ORALLY 03/17/2023 [id number] GOMEZ DOMINIC ELY 2021 [facility] HYDROCHLORO THIAZIDE 12.5MG TAB TAKE ONE TABLET BY MOUTH EVERY DAY FOR BLOOD PRESSURE ORALLY DISCONT INUED (EDIT) 08/11/2023 [id number] 3 DOMINIC TREJO 2022 [place] [facility] HYDROCHLORO THIAZIDE 25MG TAB TAKE ONE TABLET BY MOUTH EVERY DAY FOR BLOOD PRESSURE ORALLY ACTIVE 02/11/2024 [id number] 3 VI,ORQUIDEA Gonzalez 2022 [place] [facility] HYDROCHLORO THIAZIDE 25MG TAB TAKE ONE-HALF TABLET BY MOUTH EVERY DAY ORALLY DISCONT INUED (EDIT) 03/17/2023 [id number] 3 DOMINIC TREJO 2022 [facility] LISINOPRIL 40MG TAB TAKE ONE TABLET BY MOUTH EVERY DAY FOR BLOOD PRESSURE ORALLY ACTIVE 02/11/2024 [id number] 3 ORQUIDEA LEBRON 2022 [place] [facility] LISINOPRIL 40MG TAB TAKE ONE TABLET BY MOUTH EVERY DAY FOR BLOOD PRESSURE ORALLY DISCONT INUED (EDIT) 08/11/2023 [id number] 3 DOMINIC TREJO 2022 [facility] LISINOPRIL 40MG TAB TAKE ONE TABLET BY MOUTH EVERY DAY FOR BLOOD PRESSURE ORALLY DISCONT INUED (EDIT) 05/18/2023 [id number] 3 MIC LUCAS 2021 [facility] METOPROLOL SUCCINATE 50MG TAB,SA TAKE ONE TABLET BY MOUTH AT BEDTIME FOR BLOOD PRESSURE ORALLY ACTIVE 02/11/2024 [id number] 3 ORQUIDEA LEBRON 2022 [facility] METOPROLOL SUCCINATE 50MG TAB,SA TAKE ONE TABLET BY MOUTH AT BEDTIME FOR BLOOD PRESSURE ORALLY DISCONT INUED (EDIT) 08/11/2023 [id number] 3 DOMINIC TREJO 2022 [facility] METOPROLOL SUCCINATE 50MG TAB,SA TAKE ONE TABLET BY MOUTH AT BEDTIME ORALLY DISCONT INUED (EDIT) 06/30/2023 [id number] 3 DOMINIC TREJO 2022 [facility] METOPROLOL SUCCINATE 50MG TAB,SA TAKE ONE-HALF TABLET BY MOUTH AT BEDTIME ORALLY DISCONT INUED (EDIT) 03/17/2023 [id number] 3 DOMINIC TREJO 2022 [facility] NITROFURANT OIN MONOHYDRATE /MACROCRYST ALLINE 100MG CAP,SA TAKE ONE CAPSULE BY MOUTH EVERY DAY DIRECTED TO PREVENT URINARY TRACT INFECTIO N AFTER SWIMMING ORALLY DISCONT INUED 10/12/2023 [id number] 3 GOMEZ DOMINIC ELY 2022 [facility] OLOPATADINE HCL 0.1% SOLN,OPH INSTILL 1 DROP IN BOTH EYES TWICE A DAY BOTH EYES ACTIVE 03/15/2024 [id number] 3 DOMINIC TREJO 2022 [facility] OLOPATADINE HCL 0.1% SOLN,OPH INSTILL 1 DROP IN BOTH EYES TWICE A DAY BOTH EYES DISCONT INUED 03/17/2023 [id number] 3 DOMINIC TREJO 2022 [facility] OMEPRAZOLE 20MG CAP,EC TAKE ONE CAPSULE BY MOUTH TWICE A WEEK ON AN EMPTY STOMACH, AT LEAST 30 MINUTES PRIOR TO A MEAL ORALLY ACTIVE 03/15/2024 [id number] 3 DOMINIC TREJO 2022 [facility] OMEPRAZOLE 20MG CAP,EC TAKE ONE CAPSULE BY MOUTH TWICE A WEEK ON AN EMPTY STOMACH, AT LEAST 30 MINUTES PRIOR TO A MEAL ORALLY DISCONT INUED 03/17/2023 [id number] 3 DOMINIC TREJO 2022 [facility] Immunizations Combined list of available immunizations from the Department of Defense and Veterans Affairs facilities. 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 Comments Source INFLUENZA VACCINE, QUADRIVALENT, ADJUVANTED 2022 205 complet ed [facility] COVID-19 (MODERNA), MRNA, LNP-S, PF, 50 MCG/0.5 ML (AGES 12+ YEARS) 2022 312 complet ed [facility] COVID-19 (PFIZER), MRNA, LNP-S, BIVALENT BOOSTER, PF, 30 MCG/0.3 ML DOSE 1 2022 TAMI QUINTANA RIGHT DELTO ID [id number] 300 complet ed [facility] COVID-19 (MODERNA), MRNA, LNP-S, BIVALENT, PF, 50 MCG/0.5 ML OR 25MCG/0.25 ML DOSE 2021 229 complet ed [facility] INFLUENZA, UNSPECIFIED FORMULATION 2021 88 complet ed [facility] INFLUENZA, HIGH-DOSE, QUADRIVALENT 2021 197 complet ed [facility] COVID-19 (MODERNA), MRNA, LNP-S, PF, 100 MCG/0.5ML DOSE OR 50 MCG/0.25ML DOSE 2021 207 complet ed [facility] COVID-19 (MODERNA), MRNA, LNP-S, PF, 100 MCG/0.5ML DOSE OR 50 MCG/0.25ML DOSE 3 2020 207 complet ed [facility] INFLUENZA, HIGH-DOSE, QUADRIVALENT 2020 197 complet ed [facility] INFLUENZA, UNSPECIFIED FORMULATION 2020 88 complet ed [facility] COVID-19 (MODERNA), MRNA, LNP-S, PF, 100 MCG/0.5 ML DOSE 2 2020 207 complet ed [facility] COVID-19 (MODERNA), MRNA, LNP-S, PF, 100 MCG/0.5 ML DOSE 1 2020 207 complet ed [facility] INFLUENZA, INJECTABLE, QUADRIVALENT, PRESERVATIVE FREE 2019 150 complet ed [facility] INFLUENZA, UNSPECIFIED FORMULATION 2019 88 complet ed [facility] INFLUENZA, HIGH DOSE SEASONAL 2018 135 complet ed [facility] ZOSTER RECOMBINANT 2 2018 187 complet ed per [facility] ZOSTER RECOMBINANT 1 2018 187 complet ed per [facility] INFLUENZA, HIGH DOSE SEASONAL 2017 135 complet ed [facility] INFLUENZA, HIGH DOSE SEASONAL 2016 135 complet ed [facility] INFLUENZA, HIGH DOSE SEASONAL 2015 135 complet ed [facility] PNEUMOCOCCAL CONJUGATE PCV 13 2014 133 complet ed per [facility] INFLUENZA, UNSPECIFIED FORMULATION 2014 88 complet ed [facility] TDAP 2014 115 complet ed per [facility] INFLUENZA, SEASONAL, INJECTABLE 2010 141 complet ed [facility] INFLUENZA, SEASONAL, INJECTABLE, PRESERVATIVE FREE 2009 140 complet ed [facility] ZOSTER LIVE 2009 121 complet ed [facility] PNEUMOCOCCAL POLYSACCHARID E PPV23 2009 33 complet ed [facility] PNEUMOCOCCAL, UNSPECIFIED FORMULATION 2009 109 complet ed [facility] NOVEL INFLUENZA-H1N 1-09, ALL FORMULATIONS 2008 128 complet ed [facility] TD (ADULT), 2 LF TETANUS TOXOID, PRESERVATIVE FREE, ADSORBED 2008 09 complet ed [facility] INFLUENZA, UNSPECIFIED FORMULATION 2008 88 complet ed [facility] INFLUENZA, SEASONAL, INJECTABLE 2007 141 complet ed [facility] INFLUENZA, SEASONAL, INJECTABLE 2001 141 complet ed [facility] INFLUENZA, SEASONAL, INJECTABLE 2000 141 complet ed [facility] Results Combined list of recent chemistry, hematology and other laboratory results from Department of Defense and Veterans Affairs, ranging from 15 months to all on record, depending upon the facility. Order Name Results Value Reference Range Date Interpretation Specimen Comments Source BASIC METABOLIC PANEL+MG CREATININE [MASS/VOLUM E] IN SERUM OR PLASMA 0.6 0.5 - 1.0 03/15 Specimen Type: PLASMA No comment entered. Ordering Provider: MARIMAR LEBRON Report Released Date/Time: Feb 10, 2023 09:08 AM Reporting Lab: [facility] [address] Performing Lab: [facility] [address] [facility] BASIC METABOLIC PANEL+MG UREA NITROGEN [MASS/VOLUM E] IN SERUM OR PLASMA 9 7 - 20 03/15 Specimen Type: PLASMA No comment entered. Ordering Provider: MARIMAR LEBRON Report Released Date/Time: Feb 10, 2023 09:08 AM Reporting Lab: [facility] [address] Performing Lab: [facility] [address] [place] [facility] BASIC METABOLIC PANEL+MG GLUCOSE [MASS/VOLUM E] IN SERUM OR PLASMA 106 70 - 100 03/15 H Specimen Type: PLASMA No comment entered. Ordering Provider: MARIMAR LEBRON Report Released Date/Time: Feb 10, 2023 09:08 AM Reporting Lab: [facility] [address] Performing Lab: [facility] [address] [place] [facility] BASIC METABOLIC PANEL+MG SODIUM [MOLES/VOLU ME] IN SERUM OR PLASMA 138 136 - 145 03/15 Specimen Type: PLASMA No comment entered. Ordering Provider: MARIMAR LEBRON Report Released Date/Time: Feb 10, 2023 09:08 AM Reporting Lab: [facility] [address] Performing Lab: [facility] [address] [place] [facility] BASIC METABOLIC PANEL+MG POTASSIUM [MOLES/VOLU ME] IN SERUM OR PLASMA 3.4 3.5 - 5.1 03/15 L Specimen Type: PLASMA No comment entered. Ordering Provider: MARIMAR LEBRON Report Released Date/Time: Feb 10, 2023 09:08 AM Reporting Lab: [facility] [address] Performing Lab: [facility] [address] [place] [facility] BASIC METABOLIC PANEL+MG CHLORIDE [MOLES/VOLU ME] IN SERUM OR PLASMA 103 98 - 107 03/15 Specimen Type: PLASMA No comment entered. Ordering Provider: MARIMAR LEBRON Report Released Date/Time: Feb 10, 2023 09:08 AM Reporting Lab: [facility] [address] Performing Lab: [facility] [address] [place] [facility] BASIC METABOLIC PANEL+MG CARBON DIOXIDE, TOTAL [MOLES/VOLU ME] IN SERUM OR PLASMA 28 22 - 29 03/15 Specimen Type: PLASMA No comment entered. Ordering Provider: MARIMAR LEBRON Report Released Date/Time: Feb 10, 2023 09:08 AM Reporting Lab: [facility] [address] Performing Lab: [facility] [address] [place] [facility] BASIC METABOLIC PANEL+MG CALCIUM [MASS/VOLUM E] IN SERUM OR PLASMA 9.3 8.4 - 10.2 03/15 Specimen Type: PLASMA No comment entered. Ordering Provider: MARIMAR LEBRON Report Released Date/Time: Feb 10, 2023 09:08 AM Reporting Lab: [facility] [address] Performing Lab: [facility] [address] [place] [facility] BASIC METABOLIC PANEL+MG MAGNESIUM [MASS/VOLUM E] IN SERUM OR PLASMA 1.8 1.6 - 2.6 03/15 Specimen Type: PLASMA No comment entered. Ordering Provider: MARIMAR LEBRON Report Released Date/Time: Feb 10, 2023 09:08 AM Reporting Lab: [facility] [address] Performing Lab: [facility] [address] [place] [facility] BASIC METABOLIC PANEL+MG ANION GAP IN SERUM OR PLASMA 7 5 - 15 03/15 Specimen Type: PLASMA No comment entered. Ordering Provider: MARIMAR LEBRON Report Released Date/Time: Feb 10, 2023 09:08 AM Reporting Lab: [facility] [address] Performing Lab: [facility] [address] [place] [facility] BASIC METABOLIC PANEL+MG GLOMERULAR FILTRATION RATE/1.73 SQ M.PREDICTED [VOLUME RATE/AREA] IN SERUM, PLASMA OR BLOOD BY CREATININE- BASED FORMULA (CKD-EPI 2020) 86 60 03/15 Specimen Type: PLASMA No comment entered. Ordering Provider: MARIMAR LEBRON Report Released Date/Time: Feb 10, 2023 09:08 AM Reporting Lab: [facility] [address] Performing Lab: [facility] [address] [place] [facility] TSH W/REFLEX TO FREE T4 THYROTROPIN [UNITS/VOLU ME] IN SERUM OR PLASMA 0.61 0.35 - 4.94 03/15 Specimen Type: PLASMA No comment entered. Ordering Provider: HARRIS TREJO Report Released Date/Time: Mar 16, 2022 11:04 AM Reporting Lab: [facility] [address] Performing Lab: [facility] [address] [place] [facility] CBC LEUKOCYTES [#/VOLUME] IN BLOOD BY AUTOMATED COUNT 5.71 4.0 - 11.0 03/15 Specimen Type: BLOOD No comment entered. Ordering Provider: HARRIS TREJO Report Released Date/Time: Mar 16, 2022 11:04 AM Reporting Lab: [facility] [address] Performing Lab: [facility] [address] [place] [facility] CBC ERYTHROCYTE S [#/VOLUME] IN BLOOD BY AUTOMATED COUNT 4.77 4.0 - 5.4 03/15 Specimen Type: BLOOD No comment entered. Ordering Provider: HARRIS TREJO Report Released Date/Time: Mar 16, 2022 11:04 AM Reporting Lab: [facility] [address] Performing Lab: [facility] [address] [place] [facility] CBC HEMOGLOBIN [MASS/VOLUM E] IN BLOOD 14.2 11.5 - 16 03/15 Specimen Type: BLOOD No comment entered. Ordering Provider: HARRIS TREJO Report Released Date/Time: Mar 16, 2022 11:04 AM Reporting Lab: [facility] [address] Performing Lab: [facility] [address] [place] [facility] CBC HEMATOCRIT [VOLUME FRACTION] OF BLOOD BY AUTOMATED COUNT 40.8 34.5 - 48 03/15 Specimen Type: BLOOD No comment entered. Ordering Provider: HARRIS TREJO Report Released Date/Time: Mar 16, 2022 11:04 AM Reporting Lab: [facility] [address] Performing Lab: [facility] [address] [place] [facility] CBC MCV [ENTITIC VOLUME] BY AUTOMATED COUNT 85.5 80 - 100 03/15 Specimen Type: BLOOD No comment entered. Ordering Provider: HARRIS TREJO Report Released Date/Time: Mar 16, 2022 11:04 AM Reporting Lab: [facility] [address] Performing Lab: [facility] [address] [place] [facility] CBC MCH [ENTITIC MASS] BY AUTOMATED COUNT 29.8 27 - 33 03/15 Specimen Type: BLOOD No comment entered. Ordering Provider: HARRIS TREJO Report Released Date/Time: Mar 16, 2022 11:04 AM Reporting Lab: [facility] [address] Performing Lab: [facility] [address] [place] [facility] CBC MCHC [MASS/VOLUM E] BY AUTOMATED COUNT 34.8 32.0 - 37.5 03/15 Specimen Type: BLOOD No comment entered. Ordering Provider: HARRIS TREJO Report Released Date/Time: Mar 16, 2022 11:04 AM Reporting Lab: [facility] [address] Performing Lab: [facility] [address] [place] [facility] CBC PLATELETS [#/VOLUME] IN BLOOD BY AUTOMATED COUNT 187 150 - 400 03/15 Specimen Type: BLOOD No comment entered. Ordering Provider: HARRIS TREJO Report Released Date/Time: Mar 16, 2022 11:04 AM Reporting Lab: [facility] [address] Performing Lab: [facility] [address] [place] [facility] CBC PLATELET MEAN VOLUME [ENTITIC VOLUME] IN BLOOD BY AUTOMATED COUNT 9.3 7.4 - 10.4 03/15 Specimen Type: BLOOD No comment entered. Ordering Provider: HARRIS TREJO Report Released Date/Time: Mar 16, 2022 11:04 AM Reporting Lab: [facility] [address] Performing Lab: [facility] [address] [place] [facility] CBC ERYTHROCYTE DISTRIBUTIO N WIDTH [RATIO] BY AUTOMATED COUNT 13.6 11.5 - 14.5 03/15 Specimen Type: BLOOD No comment entered. Ordering Provider: HARRIS TREJO Report Released Date/Time: Mar 16, 2022 11:04 AM Reporting Lab: [facility] [address] Performing Lab: [facility] [address] [place] [facility] VIT D 25-OH,TOT AL 25-HYDROXYV ITAMIN D3 [MASS/VOLUM E] IN SERUM OR PLASMA 30 12 - 50 03/15 Specimen Type: SERUM No comment entered. Ordering Provider: HARRIS TREJO Report Released Date/Time: Mar 16, 2022 11:04 AM Reporting Lab: [facility] [address] Performing Lab: [facility] [address] [place] [facility] HEMOGLOBI N A1C HEMOGLOBIN A1C/HEMOGLO BIN.TOTAL IN BLOOD 6.0 4.0 - 6.0 03/15 Specimen Type: BLOOD Comment: Values obtained from A1C measurement s can vary. For typical A1C assays, a reported value of 7.0 could actually be between 6.7 and 7.3 if measured by a reference method. A reported value of 9.0 could actually be between 8.7 and 9.3. Ref: [email or web address].org/[place] Pdata.asp Ordering Provider: HARRIS TREJO Report Released Date/Time: Mar 16, 2022 11:04 AM Reporting Lab: [facility] [address] Performing Lab: [facility] [id number] [place] [facility] BASIC METABOLIC PANEL+MG CREATININE [MASS/VOLUM E] IN SERUM OR PLASMA 0.6 0.5 - 1.0 06/29 Specimen Type: PLASMA No comment entered. Ordering Provider: HARRIS TREJO Report Released Date/Time: Jun 29, 2022 10:17 AM Reporting Lab: [facility] [address] Performing Lab: [facility] [id number] [place] [facility] BASIC METABOLIC PANEL+MG UREA NITROGEN [MASS/VOLUM E] IN SERUM OR PLASMA 15 7 - 20 06/29 Specimen Type: PLASMA No comment entered. Ordering Provider: HARRIS TREJO Report Released Date/Time: Jun 29, 2022 10:17 AM Reporting Lab: [facility] [address] Performing Lab: [facility] [address] [place] [facility] BASIC METABOLIC PANEL+MG GLUCOSE [MASS/VOLUM E] IN SERUM OR PLASMA 94 70 - 100 06/29 Specimen Type: PLASMA No comment entered. Ordering Provider: HARRIS TREJO Report Released Date/Time: Jun 29, 2022 10:17 AM Reporting Lab: [facility] [address] Performing Lab: [facility] [address] [place] [facility] BASIC METABOLIC PANEL+MG SODIUM [MOLES/VOLU ME] IN SERUM OR PLASMA 141 136 - 145 06/29 Specimen Type: PLASMA No comment entered. Ordering Provider: HARRIS TREJO Report Released Date/Time: Jun 29, 2022 10:17 AM Reporting Lab: [facility] [address] Performing Lab: [facility] [address] [place] [facility] BASIC METABOLIC PANEL+MG POTASSIUM [MOLES/VOLU ME] IN SERUM OR PLASMA 3.9 3.5 - 5.1 06/29 Specimen Type: PLASMA No comment entered. Ordering Provider: HARRIS TREJO Report Released Date/Time: Jun 29, 2022 10:17 AM Reporting Lab: [facility] [address] Performing Lab: [facility] [address] [place] [facility] BASIC METABOLIC PANEL+MG CHLORIDE [MOLES/VOLU ME] IN SERUM OR PLASMA 108 98 - 107 06/29 H Specimen Type: PLASMA No comment entered. Ordering Provider: HARRIS TREJO Report Released Date/Time: Jun 29, 2022 10:17 AM Reporting Lab: [facility] [address] Performing Lab: [facility] [address] [place] [facility] BASIC METABOLIC PANEL+MG CARBON DIOXIDE, TOTAL [MOLES/VOLU ME] IN SERUM OR PLASMA 27 22 - 29 06/29 Specimen Type: PLASMA No comment entered. Ordering Provider: HARRIS TREJO Report Released Date/Time: Jun 29, 2022 10:17 AM Reporting Lab: [facility] [address] Performing Lab: [facility] [address] [place] [facility] BASIC METABOLIC PANEL+MG CALCIUM [MASS/VOLUM E] IN SERUM OR PLASMA 9.2 8.4 - 10.2 06/29 Specimen Type: PLASMA No comment entered. Ordering Provider: HARRIS TREJO Report Released Date/Time: Jun 29, 2022 10:17 AM Reporting Lab: [facility] [address] Performing Lab: [facility] [address] [place] [facility] BASIC METABOLIC PANEL+MG MAGNESIUM [MASS/VOLUM E] IN SERUM OR PLASMA 1.9 1.6 - 2.6 06/29 Specimen Type: PLASMA No comment entered. Ordering Provider: HARRIS TREJO Report Released Date/Time: Jun 29, 2022 10:17 AM Reporting Lab: [facility] [address] Performing Lab: [facility] [address] [place] [facility] BASIC METABOLIC PANEL+MG ANION GAP IN SERUM OR PLASMA 6 5 - 15 06/29 Specimen Type: PLASMA No comment entered. Ordering Provider: HARRIS TREJO Report Released Date/Time: Jun 29, 2022 10:17 AM Reporting Lab: [facility] [address] Performing Lab: [facility] [address] [place] [facility] BASIC METABOLIC PANEL+MG GLOMERULAR FILTRATION RATE/1.73 SQ M.PREDICTED [VOLUME RATE/AREA] IN SERUM, PLASMA OR BLOOD BY CREATININE- BASED FORMULA (CKD-EPI) 87 60 06/29 Specimen Type: PLASMA No comment entered. Ordering Provider: HARRIS TREJO Report Released Date/Time: Jun 29, 2022 10:17 AM Reporting Lab: [facility] [address] Performing Lab: [facility] [address] [place] [facility] TSH W/REFLEX TO FREE T4 THYROTROPIN [UNITS/VOLU ME] IN SERUM OR PLASMA 0.62 0.35 - 4.94 06/29 Specimen Type: PLASMA No comment entered. Ordering Provider: AGUILAR AGUILLON Report Released Date/Time: Jun 29, 2022 11:24 AM Reporting Lab: [facility] [address] Performing Lab: [facility] [address] [facility] HEMOGLOBI N A1C HEMOGLOBIN A1C/HEMOGLO BIN.TOTAL IN BLOOD 5.8 4.0 - 6.0 03/16 Specimen Type: BLOOD Comment: Values obtained from A1C measurement s can vary. For typical A1C assays, a reported value of 7.0 could actually be between 6.7 and 7.3 if measured by a reference method. A reported value of 9.0 could actually be between 8.7 and 9.3. Ref: http://www. ngsp.org/[place] Pdata.asp Ordering Provider: HARRIS TREJO Report Released Date/Time: Mar 16, 2021 11:01 AM Reporting Lab: [facility] [address] Performing Lab: [facility] [address] [facility] Vital Signs Combined list of inpatient and outpatient Vital Signs from Department of Defense and Veterans Affairs, ranging from 12 months to all on record, depending upon the facility. Vital Sign Value Date Comments Source SYSTOLIC BLOOD PRESSURE 204 05/18/2023 09:15:00 [facility] DIASTOLIC BLOOD PRESSURE 72 05/18/2023 09:15:00 [facility] PULSE OXIMETRY 96% 05/18/2023 09:15:00 [facility] TEMPERATURE 97.3 05/18/2023 09:15:00 [facility] PULSE 57 05/18/2023 09:15:00 [facility] SYSTOLIC BLOOD PRESSURE 125 05/09/2023 15:00:09 [facility] DIASTOLIC BLOOD PRESSURE 70 05/09/2023 15:00:09 [facility] PULSE OXIMETRY 97% 05/09/2023 15:00:09 [facility] WEIGHT 162 05/09/2023 15:00:09 [facility] BMI 31kg/m2 05/09/2023 15:00:09 [facility] PAIN 0 05/09/2023 15:00:09 [facility] TEMPERATURE 98.2 05/09/2023 15:00:09 [facility] PULSE 67 05/09/2023 15:00:09 [facility] RESPIRATION 18 05/09/2023 15:00:09 [facility] SYSTOLIC BLOOD PRESSURE 124 03/15/2023 10:08:03 [facility] DIASTOLIC BLOOD PRESSURE 73 03/15/2023 10:08:03 [facility] PULSE OXIMETRY 96% 03/15/2023 10:08:03 [facility] WEIGHT 162.5 03/15/2023 10:08:03 [facility] BMI 31kg/m2 03/15/2023 10:08:03 [facility] PAIN 0 03/15/2023 10:08:03 [facility] HEIGHT 60.5 03/15/2023 10:08:03 [facility] PULSE 75 03/15/2023 10:08:03 [facility] RESPIRATION 18 03/15/2023 10:08:03 [facility] SYSTOLIC BLOOD PRESSURE 159 02/10/2023 08:33:57 [facility] DIASTOLIC BLOOD PRESSURE 78 02/10/2023 08:33:57 [facility] PULSE OXIMETRY 98% 02/10/2023 08:33:57 [facility] WEIGHT 162 02/10/2023 08:33:57 [facility] BMI 31kg/m2 02/10/2023 08:33:57 [facility] PAIN 4 02/10/2023 08:33:57 [facility] HEIGHT 61 02/10/2023 08:33:57 [facility] PULSE 70 02/10/2023 08:33:57 [facility] RESPIRATION 18 02/10/2023 08:33:57 [facility] SYSTOLIC BLOOD PRESSURE 197 01/07/2023 10:04:08 [facility] DIASTOLIC BLOOD PRESSURE 96 01/07/2023 10:04:08 [facility] PULSE OXIMETRY 96% 01/07/2023 10:04:08 [facility] WEIGHT 162.1 01/07/2023 10:04:08 [facility] BMI 31kg/m2 01/07/2023 10:04:08 [facility] PAIN 2 01/07/2023 10:04:08 [facility] PULSE 77 01/07/2023 10:04:08 [facility] RESPIRATION 18 01/07/2023 10:04:08 [facility] Encounters Combined list of: 1) Encounters from Department of [facility] facilities going back up to thelast 18 months. 2) Encounters from the Department of [facility] facilities going back up to 280 months. Location Location Details Encounter Type Encounter Number Reason For Visit Attending Provider ADM Date DC Date Status Disposition Source [facility] [place] [id number] Diagnos is: ICD-10- CM M62.81 Muscle weaknes s (genera lized)< br/> BRANDIE ODONNELL 01/18 [facility] PROSTHETIC TRAING 1ST ENC [id number] Diagnos is: ICD-10- CM M62.81 Muscle weaknes s (genera lized)< br/> WIL BUSTAMANTE 01/18 [facility] Outpatient Encounter [id number] 02/21 [facility] Outpatient Encounter [id number] 03/02 [facility] Outpatient Encounter [id number] 03/02 [facility] ORTHC/PROS TC MGMT SBSQ ENC [id number] Diagnos is: ICD-10- CM R60.9 Edema, 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
WIL BUSTAMANTE G 03/16 [facility] Outpatient Encounter [id number] Diagnos is: ICD-10- CM Z00.00 Encntr for general adult medical exam w/o abnorma l finding s
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
BLAS,DIEGO NAH 04/14 [facility] Outpatient Encounter [id number] ROLA VANEGAS L 04/15 [facility] HC PRO PHONE CALL 21-30 MIN [id number] Diagnos is: ICD-10- CM I10 Essenti al (primar y) hyperte nsion<b r/> MIC PLASCENCIA 04/19 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
Carlos TREJO 06/29 [facility] ADM SARSCV2 BVL 30MCG/.3ML B [id number] Diagnos is: ICD-10- CM Z23 Encount er for immuniz ation<b r/> CANDICE QUINTANA EY E 06/29 [facility] [place] [facility] Outpatient Encounter [id number] 07/01 [facility] [place] [facility] Outpatient Encounter [id number] 07/12 [facility] [place] [facility] Outpatient Encounter [id number] 07/29 [place] [facility] [place] [facility] Outpatient Encounter [id number] 08/04 [place] [facility] [place] [facility] Outpatient Encounter [id number] 08/09 [facility] [place] [facility] ELECTROCAR DIOGRAM TRACING [id number] Diagnos is: ICD-10- CM I49.8 Other specifi ed cardiac arrhyth mias
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
MARGA HUBER RMA B 08/09 [facility] UNLISTED SPEC DERM SVC/PX [id number] Diagnos is: ICD-10- CM L98.9 Disorde r of the skin and subcuta neous tissue, 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
ELJOHNIEANA MARÍA ALONSO LEI Gonzalez 08/09 [facility] Outpatient Encounter [id number] 08/10 [facility] Outpatient Encounter [id number] GABIDAYAMITrini KNIGHT M 08/10 [facility] Outpatient Encounter [id number] Diagnos is: ICD-10- CM L82.1 Other seborrh eic keratos is
Kailash LEO OAH I 08/11 [facility] Outpatient Encounter [id number] 10/11 [facility] Outpatient Encounter [id number] DIPIKA RODRIGUES 10/15 [facility] OFFICE O/P EST LOW 20-29 MIN [id number] Diagnos is: ICD-10- CM M25.572 Pain in left ankle and joints of left foot
Carlos TREJO M 10/18 [facility] ORTHC/PROS TC MGMT SBSQ ENC [id number] Diagnos is: ICD-10- CM M25.571 Pain in right ankle and joints of right foot
WIL BUSTAMANTE 10/18 [facility] OFF/OP EST MAY X REQ PHY/QHP [id number] Diagnos is: ICD-10- CM M25.572 Pain in left ankle and joints of left foot
ROLA VANEGAS L 11/02 [facility] [place] [facility] Outpatient Encounter [id number] 12/17 [place] [facility] [place] [facility] Outpatient Encounter [id number] 01/04 [facility] OFFICE O/P EST HI 40-54 MIN [id number] Diagnos is: ICD-10- CM G24.5 Blephar ospasm< br/> BRITANY RAMIREZ 01/07 [facility] [place] [facility] Outpatient Encounter [id number] 01/10 [facility] [place] [facility] Outpatient Encounter [id number] GILDARDO HERORN W 01/12 [facility] [place] [facility] Outpatient Encounter [id number] 01/13 [facility] [place] [facility] Outpatient Encounter [id number] Trini ELY 01/18 [facility] [place] [facility] Outpatient Encounter [id number] 01/24 [facility] [place] [facility] Outpatient Encounter [id number] MARKY PENDLETON 01/25 [facility] [place] [facility] OFFICE O/P EST MOD 30-39 MIN [id number] Diagnos is: ICD-10- CM 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
HOPE THORNE E 05/03 [facility] OFF/OP EST MAY X REQ PHY/QHP [id number] Diagnos is: ICD-10- CM L98.9 Disorde r of the skin and subcuta neous tissue, 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
KYLE SEARS Carlos 05/03 [facility] OFF/OP EST MAY X REQ PHY/QHP [id number] Diagnos is: ICD-10- CM Z71.9 Program Facilitator ing, 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
DANI CALLAHAN 05/18 [facility] Outpatient Encounter [id number] 05/18 [facility] Outpatient Encounter [id number] CRISPIN PARADA RLOS A 05/20 [facility] OFF/OP EST MAY X REQ PHY/QHP [id number] Diagnos is: ICD-10- CM Z48.02 Encount er for removal of sutures
POST,CRYST AL L 05/31 [facility] Outpatient Encounter [id number] 05/31 [facility] [employer] Outpatient Encounter [id number] 06/08 [facility] [employer] Outpatient Encounter [id number] 06/09 [facility] PRO PHONE CALL 11-20 MIN [id number] Diagnos is: ICD-10- CM Z71.9 Program Facilitator ing, 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
ROLA VANEGAS CY L 06/09 [place] [facility] [place] [facility] Outpatient Encounter [id number] 06/10 [place] [facility] [place] [facility] Outpatient Encounter [id number] 06/14 [facility] Social History Combined list of available smoking, tobacco, and other social history from Department of Defense and Veterans Affairs facilities. Social History Type Response Date Comment Sourc e Tobacco smoking status [facility] NEVER USED [facility] of [facility]20[facility] History of tobacco use [facility]-TOBACCO NEVER USED 11/10/2020 [facility] Plan of Care List of future care activities from Department of Veterans Affairs facilities. Additional future care activities may be listed in the Assessment and Plan section. Date/Time Care Activity Care Activity Detail Robyni ty 06/28/2023 AMBULATORY - SURGERY AMBULATORY - SURGERY [facility]
--- OUTSIDE RECORDS SUMMARY | 2023-06-24 08:38 | XMS_ITS | Encounter Summary ---
Author Name [facility] Organization [facility] Address [address] [place] [address] Insurance Providers: All historical and current Section Date Range: From patient's date of to the date document was created. This section includes the names of all active insurance providers for the patient. Insurance Provider Type of Coverage Plan Name Start of Policy Coverage End of Policy Coverage Group Number Member ID Insurance Provider's Telephone Number Policy Talavera's Name Patient's Relationship to Policy Talavera [facility] ([id number]) PRESCRIPT ION GEHA May 30, 2005 [id number] SONIA MOBLEY PATIENT GEHA (SECONDARY ) PREFERRED PROVIDER ORGANIZAT ION (PPO) GEHA A&B PRIMA RY May 30, 2005 [id number] [phone] SONIA MOBLEY PATIENT GEHA (SECONDARY ) PREFERRED PROVIDER ORGANIZAT ION (PPO) GEHA A/B PRIMA RY May 30, 2005 [id number] [phone] SONIA MOBLEY PATIENT [facility] PREFERRED PROVIDER ORGANIZAT ION (PPO) DO NOT USE May 30, 2005 [id number] TONI BRITO PATIENT MEDICARE (WNR) MEDICARE (M) PART A Jan 29, 2000 PART A [id number] [phone] SONIA MOBLEY PATIENT MEDICARE (WNR) MEDICARE (M) PART B Jan 29, 2000 PART B [id number] [phone] SONIA MOBLEY PATIENT Selected Encounter This section includes the information on record at [place] for the Encounter. Date/Time Encounter Type Encounter Description Reason Pro vider Source Jul 12, 2022 09:25 AM Outpatient Encounter COMP [facility]OM[facility] Encounter Template Text not used by PA Plan of Treatment: Future Appointments (+ 6 months) and Future Tests (+/- 45 days) The Plan of Treatment section includes future care activities for the patient from [facility] This section includes future appointments and future orders which are active, pending or scheduled. Future Appointments This section includes appointments that were scheduled to occur 6 months from the date of the Encounter, up to a maximum of 20 appointments. The data comes from all [place] treatment facilities. Appointment Date/Time Appointment Type Appointme nt Facility Name Aug 09, 2022 07:30 AM [facility] [place] [facility] Aug 09, 2022 09:15 AM [place] [facility] Aug 09, 2022 09:30 AM [facility] Aug 09, 2022 10:30 AM [facility] [place] [place] [facility] October 18, 2022 10:00 AM [facility] October 18, 2022 10:45 AM [facility]ONE [place] [facility] October 18, 2022 11:15 AM [facility]ONE [place] [facility] Nov 02, 2022 10:45 AM [place] [place]IC[place] [facility] Jan 07, 2023 10:00 AM [facility] Lab Results: +/- 30 days of the encounter This section includes the Chemistry and Hematology Lab Results on record with PA for the patient. Radiology Reports and Pathology Reports are provided separately, in subsequent sections. Lab Results This section contains the Chemistry/Hematology Results that were resulted 30 days before or 30 daysafter the date of the Encounter. Date/Time Source Result Type Result - Unit Interpretation Reference Range Comment Jun 29, 2022 11:21 AM [facility] BASIC METABOLIC PANEL+MG Specimen Type: PLASMA No comment entered. Ordering Provider: DOMINIC TREJO Report Released Date/Time: Jun 29, 2022 10:17 AM Reporting Lab: [facility] [id number] Performing Lab: [facility] [id number] CREATININE 0.6 0.5-1.0 UREA NITROGEN 15 7-20 GLUCOSE 94 70-100 SODIUM 141 136-145 POTASSIUM 3.9 3.5-5.1 CHLORIDE 108 H 98-107 CO2 27 22-29 CALCIUM 9.2 8.4-10.2 MAGNESIUM 1.9 1.6-2.6 ANION GAP 6 5-15 CREAT EGFR(CKD-EPI ) 87 >60 Jun 29, 2022 11:21 AM [facility] TSH W/REFLEX TO FREE T4 Specimen Type: PLASMA No comment entered. Ordering Provider: ALBARO AGUILLON Report Released Date/Time: Jun 29, 2022 11:24 AM Reporting Lab: [facility] [id number] Performing Lab: [facility] [id number] TSH 0.62 0.35-4.94 Social History: Smoking Status (Most current) and Tobacco Use (All prior to encounter date) This section includes the most current, and the historical, smoking and tobacco- related health factors from the [place] facility where the Encounter took place. Current Smoking Status This section includes the most current smoking, or tobacco-related health factor, from the [place] facility where the Encounter took place. Date/Time Current Smoking Status Comment Facil ity September 28, 2021 09:30 AM PA-TOBACCO NEVER USED [facility] Tobacco Use History This section includes a history of the smoking, or tobacco-related health factors, that were collected on or before the date of the Encounter. The data comes from the [place] facility where the Encounter took place. Date/Time Smoking Status/Tobacco Use Comment F acility Nov 10, 2020 08:30 AM PA-TOBACCO NEVER USED [facility] Radiology Reports: +/- 30 days of the encounter Radiology Reports For cases when an order for radiology services may have been completed prior to the date of the Encounter, the report list includes the Radiology Reports that were completed up to 30 days before dateof the Encounter. For cases when an order for radiology services may have been completed after the date of the Encounter, the report list also includes the Radiology Reports that were completed up to30 days after date of the Encounter. The data comes from all [place] treatment facilities. Date/Time Radiology Report Provider Source Aug 09, 2022 07:37 AM LNR INCIDENTAL NOD ULE LD FOLLOW UP: ALICE MOBLEY [id number] [phone] F Exm Date: AUG 09, 2022@07:37 Req Phys: NAKITA HERNANDEZ Loc: [facility] PULM CHART CHECK LNT (Req' Img Loc: CT IMAGING Service: Unknown (Case 123 COMPLETE) LNR INCIDENTAL NODULE LD FOLLOW U(CT Detailed) CPT:83039 Proc Modifiers : LOW DOSE PROTOCOL Reason for Study: Low Dose CT F/U Nodule Clinical History: [place] IS NOT under investigation for COVID-19 or is COVID-19 negative f/u lung nodules Responsible provider name and phone number to notify for critical findings if other than user placing the order and pager listed below: User placing orders pager: [phone] Kiara LAST 3: Collection DT Specimen Test Name Result Units Ref Range 03/16/2021 11:42 PLASMA CREATININE 0.6 mg/dL 0.5 - 1.0 03/16/2021 11:42 PLASMA ESTIMATED GFR(eGF >60 Ref: >=60 Allergies: No data available for: .BERMUDA GRASS IGE .ORCHARD GRASS IGE .RED TOP GRASS IGE .COMMON RAGWEED IGE .GIANT RAGWEED IGE .ROUGH MAR ELDER IGE .MAPLE BOX ELDER,IGE .BIRCH IGE .OAK IGE .ELM IGE .CAT DANDER IGE .DOG DANDER IGE .CLAD HERBARUM IGE .ASPER FUMIGATUS IGE .ALTER ALTERNATA IGE .H DUST(H-ST) IGE .D.PTERONYSSINUS IGE .COCKROACH IGE Report Status: Verified Date Reported: AUG 09, 2022 Date Verified: AUG 09, 2022 Cutting And Printing Machine Operator E-Sig:/ES/MIRNA CHRISTIANSON MD Report: EXAM: Non-Contrast Low-Dose CT Chest for Incidentally Detected Pulmonary Nodules, 08/09/2022 HISTORY: Follow-up pulmonary nodules. COMPARISON: CT chest, 04/01/2022, 09/02/2021, 08/13/2021, 10/06/2020, and 07/05/2020. TECHNIQUE: Low dose CT chest without IV contrast. Multiplanar reconstructions were obtained. DOSE: DLP: 33.93/CTDIvol Mean: 1.07/Effective Dose: 0.5 FINDINGS: Pulmonary nodules: Index Pulmonary Nodule: Average diameter: 13 mm Density: Solid nodule Location: Left upper lobe Image: Series 3 Image 130 Suspicious features: None. Other characteristics: Subpleural. Smooth margins. Change in diameter: Unchanged since 04/01/2022 CT exam. Previously measuring 17 mm on the 07/05/2020 CT exam. Number of nodules on current exam: > or = 6 nodules Size Stratification: At least one > or = 8 mm Other Pulmonary Nodules: Additional smaller solid pulmonary nodules are unchanged since the 07/05/2020 CT exam. Other lung findings: Mild centrilobular emphysema. Linear scarring in the lingula. Scattered subpleural reticulation in the lower lobes, right greater than left. Pleura: No pleural effusion. Fat-containing right-sided Bochdalek hernia. Mediastinum: No abnormal mediastinal or axillary lymph nodes. Moderate atherosclerotic calcifications of the coronary arteries. Scattered atherosclerotic calcifications of the thoracic aorta. Dilation of the ascending thoracic aorta measuring up to 47 mm, unchanged since the 04/01/2022 CT angiogram. Saccular dilation of the proximal descending thoracic aorta measuring up to approximately 48 mm, not significantly changed since the previous exam. Calcifications of the mitral annulus. The heart is normal in size. No pericardial effusion. Bilateral thyroid nodules are unchanged since previous exams and of doubtful clinical significance. Upper abdomen: Evaluation of the upper abdomen is limited due to low-dose technique. Atherosclerotic calcifications of the abdominal aorta. Bones and soft tissues: Degenerative changes in the spine and shoulders. No suspicious lesions in the bones. Impression: 1. Stable to decreased size of pulmonary nodules since the 07/05/2020 CT exam including a 13 mm solid nodule in the left upper lobe (biopsy-proven hyalinized granuloma). These pulmonary nodules are statistically benign and no further follow-up imaging is warranted. 2. Stable dilation of the thoracic aorta better evaluated on the 04/01/2022 CT angiogram. Further management per the cardiology service. Primary Interpreting Staff: MIRNA CHRISTIANSON MD, RADIOLOGIST (Cutting And Printing Machine Operator) /MIRNA JARAMILLO [facility] Encounter Notes: All associated encounter notes This section contains the clinical notes associated to the Encounter. Date/Time Encounter Note(s) Provider Source Jul 12, 2022 09:25 AM REPORT OF CONTACT: LOCAL TITLE: PATIENT CONTACT NOTE STANDARD TITLE: REPORT OF CONTACT DATE OF NOTE: JUL 12, 2022@09:25 ENTRY DATE: JUL 12, 2022@09:25:12 AUTHOR: TANISHA MOBLEY EXP COSIGNER: URGENCY: STATUS: COMPLETED PATIENT CONTACT NOTE Has ADDENDA Patient contact Name of [place]: ALICE MOBLEY Name/Relationship of Contact if other than [place]: Date & Time of Contact: Jun@09:25 Type of Contact: In person Reason for Contact: Patient presented to clinic - wants Derm consult for mole on breast. Prior hx of breast cancer, per patient. /baltazar/ TANISHA PORTER [facility] Signed: 07/12/2022 09:26 Receipt Acknowledged By: 07/12/2022 11:39 /baltazar/ Dominic Sales MD STAFF PHYSICIAN 07/12/2022 ADDENDUM STATUS: COMPLETED telederm consult placed /baltazar/ Dominic Sales MD STAFF PHYSICIAN Signed: 07/12/2022 11:39 Receipt Acknowledged By: 07/12/2022 12:51 /baltazar/ KAREN INMAN RN REGISTERED NURSE for MICKI JAIN 07/12/2022 ADDENDUM STATUS: COMPLETED instructional writer spoke via phone reviewed telederm appt consult placed patient will wait to hear from them /talat INMAN RN REGISTERED NURSE Signed: 07/12/2022 12:57 TANISHA MOBLEY [facility]
--- OUTSIDE RECORDS SUMMARY | 2023-06-24 08:38 | XMS_ITS | Encounter Summary ---
Author Name [facility] Organization [facility] Address [address] [place] [address] Insurance Providers: All historical and current Section Date Range: From patient's date of to the date document was created. This section includes the names of all active insurance providers for the patient. Insurance Provider Type of Coverage Plan Name Start of Policy Coverage End of Policy Coverage Group Number Member ID Insurance Provider's Telephone Number Policy Talavera's Name Patient's Relationship to Policy Talavera [facility] ([id number]) PRESCRIPT ION GEHA May 30, 2005 [id number] SONIA MOBLEY PATIENT GEHA (SECONDARY ) PREFERRED PROVIDER ORGANIZAT ION (PPO) GEHA A/B PRIMA RY May 30, 2005 [id number] SONIA MOBLEY PATIENT GEHA (SECONDARY ) PREFERRED PROVIDER ORGANIZAT ION (PPO) GEHA A&B PRIMA RY May 30, 2005 [id number] [phone] SONIA MOBLEY PATIENT [facility] PREFERRED PROVIDER ORGANIZAT ION (PPO) DO NOT USE May 30, 2005 [id number] [phone] TONI BRITO PATIENT MEDICARE (WNR) MEDICARE (M) PART B Jan 29, 2000 PART B [id number] [phone] SONIA MOBLEY PATIENT MEDICARE (WNR) MEDICARE (M) PART A Jan 29, 2000 PART A [id number] [phone] SONIA MOBLEY PATIENT Selected Encounter This section includes the information on record at [place] for the Encounter. Date/Time Encounter Type Encounter Description Reason Provider Source Aug 09, 2022 10:30 AM UNLISTED SPEC DERM SVC/PX DERMATOLOGY ICD-10-CM L98.9 Disorder of the skin and subcutaneous tissue, unspecified ANTONIETA LOTT [facility] Encounter Template Text not used by [place] Assessments - Encounter Diagnoses This section includes the primary and secondary diagnoses documented for the Encounter. Date/Time Primary/Secondary Diagnosis Diagnosis Name Provider Source Aug 09, 2022 11:01 AM PRIMARY Disorder of the skin and subcutaneous tissue, unspecified ANTONIETA LOTT [facility] Plan of Treatment: Future Appointments (+ 6 months) and Future Tests (+/- 45 days) The Plan of Treatment section includes future care activities for the patient from all [place] [facility]. This section includes future appointments and future orders which are active, pending or scheduled. Future Appointments This section includes appointments that were scheduled to occur 6 months from the date of the Encounter, up to a maximum of 20 appointments. The data comes from all [facility] facilities. Appointment Date/Time Appointment Type Appointme nt Facility Name October 18, 2022 10:00 AM AMBULATORY - MEDICINE [facility] October 18, 2022 10:45 AM AMBULATORY - NONE [facility] October 18, 2022 11:15 AM AMBULATORY - NONE [facility] Nov 02, 2022 10:45 AM AMBULATORY - MEDICINE [facility] Jan 07, 2023 10:00 AM [facility] MEDICINE [facility] Vital Signs: All taken on the encounter date This section contains inpatient and outpatient Vital Signs collected on the date of the Encounter. Date/Time Temperature Pulse Blood Pressure Respiratory Rate SP02 Pain Height Weight Body Mass Index Source Aug 09, 2022 09:32 AM 129/71 mm[Hg] [facility] Aug 09, 2022 09:27 AM 97.5 F 73 /min 144/78 mm[Hg] 16 /min 96 % 0 [facility] Social History: Smoking Status (Most current) and Tobacco Use (All prior to encounter date) This section includes the most current, and the historical, smoking and tobacco- related health factors from the [place] facility where the Encounter took place. Current Smoking Status This section includes the most current smoking, or tobacco-related health factor, from the [place] facility where the Encounter took place. Date/Time Current Smoking Status Comment Robyn baez September 28, 2021 09:30 AM [place]-TOBACCO NEVER USED [facility] Tobacco Use History This section includes a history of the smoking, or tobacco-related health factors, that were collected on or before the date of the Encounter. The data comes from the [place] facility where the Encounter took place. Date/Time Smoking Status/Tobacco Use Comment F manoj Nov 10, 2020 08:30 AM VA-TOBACCO NEVER USED [facility] Radiology Reports: +/- 30 days of the [...] the Encounter. The data comes from all [place] treatment facilities. Date/Time Radiology Report Provider Source Aug 09, 2022 07:37 AM LNR INCIDENTAL NOD ULE LD FOLLOW UP: ALICE MOBLEY [facility] [id number] -[phone] F Exm Date: AUG 09, 2022@07:37 Req Phys: NAKITA HERNANDEZ Loc: [facility] PULM CHART CHECK LNT (Req' Img Loc: CT IMAGING Service: Unknown (Case 123 COMPLETE) LNR INCIDENTAL NODULE LD FOLLOW U(CT Detailed) CPT:26990 Proc Modifiers : LOW DOSE PROTOCOL Reason for Study: Low Dose CT F/U Nodule Clinical History: [place] IS NOT under investigation for COVID-19 or is COVID-19 negative f/u lung nodules Responsible provider name and phone number to notify for critical findings if other than user placing the order and pager listed below: User placing orders pager: [phone] Kiara LAST 3: Collection DT Specimen Test [...] 09, 2022 Date Verified: AUG 09, 2022 Supervisor Cooler Service E-Sig:/ES/MIRNA CHRISTIANSON MD Report: EXAM: Non-Contrast Low-Dose [...] Primary Interpreting Staff: MIRNA CHRISTIANSON MD, RADIOLOGIST (Supervisor Cooler Service) /MIRNA JARAMILLO [facility] Encounter Notes: All associated encounter notes This section contains the clinical notes associated to the Encounter. Date/Time Encounter Note(s) Provider Source Aug 09, 2022 10:59 AM TELEIMAGING NOTE: LOCAL TITLE: TELEDERMATOLOGY IMAGING REQUEST CONSULT STANDARD TITLE: TELEIMAGING NOTE DATE OF NOTE: AUG 09, 2022@10:59 ENTRY DATE: AUG 09, 2022@10:59:23 AUTHOR: OLIVIA LOTT EXP COSIGNER: URGENCY: STATUS: COMPLETED TELEDERMATOLOGY IMAGING REQUEST CONSULT Has ADDENDA Teledermatology Consult Request The patient was educated regarding the Teledermatology process at this encounter. Patient DOES consent to have images taken, viewed, and interpreted using the Teledermatology process. This consult addresses: A new condition Images: The images were acquired in clinic through traditional TeleDermatology Image acquisition. HISTORY: Prior skin history: None reported Have you had a skin cancer before? None Reported Patient reports no family history of melanoma. Taking new med/supplements: None reported Immunosuppression history: None reported Other significant history: Yes history of breast cancer of the left breast Chief Complaint: mole on breast PROBLEM A LOCATION(S): L breast DURATION: several years SYMPTOMS: No Symptoms CHANGES: Size-gradually over several years TREATMENT: No BIOPSY: No Grain Farmworker's comments: /baltazar/ OLIVIA LOTT RN REGISTERED NURSE Signed: 08/09/2022 11:02 08/11/2022 ADDENDUM STATUS: COMPLETED Imaging appointment was chaperoned by Shaniqua KUHN /baltazar/ OLIVIA LOTT RN REGISTERED NURSE Signed: 08/11/2022 08:48 Receipt Acknowledged By: * AWAITING SIGNATURE * SHANIQUA CALDWELL,OLIVIA Gonzalez [facility]
--- OUTSIDE RECORDS SUMMARY | 2023-06-24 08:38 | XMS_ITS | Encounter Summary ---
Author Name Department of [facility] Organization Department of [facility] Address [address] [place] [address] Insurance Providers: All historical and current Section Date Range: From patient's date of to the date document was created. This section includes the names of all active insurance providers for the patient. Insurance Provider Type of Coverage Plan Name Start of Policy Coverage End of Policy Coverage Group Number Member ID Insurance Provider's Telephone Number Policy Talavera's Name Patient's Relationship to Policy Talavera [place] ([id number]) PRESCRIPT ION GEHA May 30, 2005 [id number] [phone] SONIA MOBLEY PATIENT GEHA (SECONDARY ) PREFERRED PROVIDER ORGANIZAT ION (PPO) GEHA A&B PRIMA RY May 30, 2005 [id number] SONIA MOBLEY PATIENT GEHA (SECONDARY ) PREFERRED PROVIDER ORGANIZAT ION (PPO) GEHA A/B PRIMA RY May 30, 2005 [id number] SONIA MOBLEY PATIENT [facility] PREFERRED PROVIDER ORGANIZAT ION (PPO) DO NOT USE May 30, 2005 [id number] TONI BRITO PATIENT MEDICARE (WNR) MEDICARE (M) PART B Jan 29, 2000 PART B [id number] SONIA MOBLEY PATIENT MEDICARE (WNR) MEDICARE (M) PART A Jan 29, 2000 PART A [id number] [phone] SONIA MOBLEY PATIENT Selected Encounter This section includes the information on record at [place] for the Encounter. Date/Time Encounter Type Encounter Description Reason Pro vider Source Jul 01, 2022 04:55 PM Outpatient Encounter ADMIN PAT ACTIVTIES (MASNONCT) IHE Encounter Template Text not used by [facility] Plan of Treatment: Future Appointments (+ 6 months) and Future Tests (+/- 45 days) The Plan of Treatment section includes future care activities for the patient from all [facility] This section includes future appointments and future orders which are active, pending or scheduled. Future Appointments This section includes appointments that were scheduled to occur 6 months from the date of the Encounter, up to a maximum of 20 appointments. The data comes from all [place] treatment facilities. Appointment Date/Time Appointment Type Appointme nt Facility Name Aug 09, 2022 07:30 AM [place] [place] [facility] Aug 09, 2022 09:15 AM [facility] Aug 09, 2022 09:30 [facility] Aug 09, 2022 10:30 AM [facility] October 18, 2022 10:00 AM [facility] October 18, 2022 10:45 AM [facility] [place] [facility] October 18, 2022 11:15 AM [facility] [place]ONE [place] [facility] Nov 02, 2022 10:45 AM [facility] Lab Results: +/- 30 days of the encounter This section includes the Chemistry and Hematology Lab Results on record with [place] for the patient. Radiology Reports and Pathology Reports are provided separately, in subsequent sections. Lab Results This section contains the Chemistry/Hematology Results that were resulted 30 days before or 30 daysafter the date of the Encounter. Date/Time Source Result Type Result - Unit Interpretation Reference Range Comment Jun 29, 2022 11:21 AM [facility] BASIC METABOLIC PANEL+MG Specimen Type: PLASMA No comment entered. Ordering Provider: DOMINIC TREJO Report Released Date/Time: Jun 29, 2022 10:17 AM Reporting Lab: [facility] [id number] Performing Lab: [facility] [id number] CREATININE 0.6 0.5-1.0 UREA NITROGEN 15 7-20 GLUCOSE 94 70-100 SODIUM 141 136-145 POTASSIUM 3.9 3.5-5.1 CHLORIDE 108 H 98-107 CO2 27 22-29 CALCIUM 9.2 8.4-10.2 MAGNESIUM 1.9 1.6-2.6 ANION GAP 6 5-15 CREAT EGFR(CKD-EPI ) 87 >60 Jun 29, 2022 11:21 AM [facility] TSH W/REFLEX TO FREE T4 Specimen Type: PLASMA No comment entered. Ordering Provider: ALBARO AGUILLON Report Released Date/Time: Jun 29, 2022 11:24 AM Reporting Lab: [facility] [id number] Performing Lab: [facility] [id number] TSH 0.62 0.35-4.94 Social History: Smoking Status (Most current) and Tobacco Use (All prior to encounter date) This section includes the most current, and the historical, smoking and tobacco- related health factors from the [facility] where the Encounter took place. Current Smoking Status This section includes the most current smoking, or tobacco-related health factor, from the [place] facility where the Encounter took place. Date/Time Current Smoking Status Comment Robyn merrilly September 28, 2021 09:30 AM [place]-TOBACCO NEVER USED [facility] Tobacco Use History This section includes a history of the smoking, or tobacco-related health factors, that were collected on or before the date of the Encounter. The data comes from the [place] facility where the Encounter took place. Date/Time Smoking Status/Tobacco Use Comment Farooq aranda Nov 10, 2020 08:30 AM [place]-TOBACCO NEVER USED [facility] Encounter Notes: All associated encounter notes This section contains the clinical notes associated to the Encounter. Date/Time Encounter Note(s) Provider Source May 20, 2022 04:55 PM NON[facility] NOTE: LOCAL TITLE: LABORATORY NONVA NOTE STANDARD TITLE: NONVA NOTE DATE OF NOTE: MAY 20, 2022@16:55 ENTRY DATE: JUL 01, 2022@16:56:36 AUTHOR: MIC CORTEZ EXP COSIGNER: URGENCY: STATUS: COMPLETED This note contains attached LABORATORY scanned document(s) received from an outside facility. Open [facility] to review the document(s). /baltazar/ MIC CORTEZ Distillation Operator Helper Signed: 07/01/2022 16:57 MIC CORTEZ [facility]
--- OUTSIDE RECORDS SUMMARY | 2023-06-24 08:38 | XMS_ITS | Encounter Summary ---
Author Name [facility] Organization [facility] Address [address] [place] [address] Insurance Providers: All historical and current Section Date Range: From patient's date of to the date document was created. This section includes the names of all active insurance providers for the patient. Insurance Provider Type of Coverage Plan Name Start of Policy Coverage End of Policy Coverage Group Number Member ID Insurance Provider's Telephone Number Policy Talavera's Name Patient's Relationship to Policy Talavera RAFAELLOGAN ([id number]) PRESCRIPT ION GEHA May [birth year], 2005 [id number] [phone] SONIA MOBLEY PATIENT GEHA (SECONDARY ) PREFERRED PROVIDER ORGANIZAT ION (PPO) GEHA A/B PRIMA RY May 30, 2005 [id number] SONIA MOBLEY PATIENT GEHA (SECONDARY ) PREFERRED PROVIDER ORGANIZAT ION (PPO) GEHA A&B PRIMA RY May 30, 2005 [id number] SONIA MOBLEY PATIENT [facility] PREFERRED PROVIDER ORGANIZAT ION (PPO) DO NOT USE May 30, 2005 [id number] [phone] TONI BRITO PATIENT MEDICARE (WNR) MEDICARE (M) PART A Jan 29, 2000 PART A [id number] SONIA MOBLEY PATIENT MEDICARE (WNR) MEDICARE (M) PART B Jan 29, 2000 PART B [id number] [phone] SONIA MOBLEY PATIENT Selected Encounter This section includes the information on record at [place] for the Encounter. Date/Time Encounter Type Encounter Description Reason Pro vider Source Jul 29, 2022 03:44 PM Outpatient Encounter ADMIN PAT ACTIVTIES (MASNONCT) IHE Encounter Template Text not used by [place] Plan of Treatment: Future Appointments (+ 6 months) and Future Tests (+/- 45 days) The Plan of Treatment section includes future care activities for the [facility] This section includes future appointments and future orders which are active, pending or scheduled. Future Appointments This section includes appointments that were scheduled to occur 6 months from the date of the Encounter, up to a maximum of 20 appointments. The data comes from all [place] treatment facilities. Appointment Date/Time Appointment Type Appointme nt Facility Name Aug 09, 2022 07:30 AM [place] [place] [facility] Aug 09, 2022 09:15 AM [place] [facility] Aug 09, 2022 09:30 [facility] Aug 09, 2022 10:30 AM [place] [place] [facility] October 18, 2022 10:00 AM [place] [facility] October 18, 2022 10:45 AM [place] [place]ONE [place] [facility] October 18, 2022 11:15 AM [place] [place] [facility] Nov 02, 2022 10:45 AM [place] [facility] Jan 07, 2023 10:00 AM [facility] Social History: Smoking Status (Most current) and Tobacco Use (All prior to encounter date) This section includes the most current, and the historical, smoking and tobacco- related health factors from the [place] facility where the Encounter took place. Current Smoking Status This section includes the most current smoking, or tobacco-related health factor, from the [place] facility where the Encounter took place. Date/Time Current Smoking Status Comment Robyn ity September 28, 2021 09:30 AM [place]-TOBACCO NEVER USED [facility] Tobacco Use History This section includes a history of the smoking, or tobacco-related health factors, that were collected on or before the date of the Encounter. The data comes from the [place] facility where the Encounter took place. Date/Time Smoking Status/Tobacco Use Comment F acility Nov 10, 2020 08:30 AM [place]-TOBACCO NEVER USED [facility] Radiology Reports: +/- 30 days of the [...] the Encounter. The data comes from all [place] treatment facilities. Date/Time Radiology Report Provider Source Aug 09, 2022 07:37 AM LNR INCIDENTAL NOD ULE LD FOLLOW UP: ALICE MOBLEY NASREEN [id number] [phone] F Exm Date: AUG 09, 2022@07:37 Req Phys: NAKITA HERNANDEZ Loc: [facility] PULM CHART CHECK LNT (Req' Img Loc: CT IMAGING Service: Unknown (Case [id number] COMPLETE) LNR INCIDENTAL NODULE LD FOLLOW U(CT Detailed) CPT:01222 Proc Modifiers : LOW DOSE PROTOCOL Reason for Study: Low Dose CT F/U Nodule Clinical History: [place] IS NOT under investigation for COVID-19 or is COVID-19 negative f/u lung nodules Responsible provider name and phone number to notify for critical findings if other than user placing the order and pager listed below: User placing orders pager: [phone] Kiara LAST 3: Collection DT Specimen Test [...] 09, 2022 Date Verified: AUG 09, 2022 Certified Driver Examiner E-Sig:/ES/MIRNA CHRISTIANSON MD Report: EXAM: Non-Contrast Low-Dose [...] Primary Interpreting Staff: MIRNA CHRISTIANSON MD, RADIOLOGIST (Certified Driver Examiner) /MIRNA JARAMILLO [facility] Encounter Notes: All associated encounter notes This section contains the clinical notes associated to the Encounter. Date/Time Encounter Note(s) Provider Source May 20, 2022 03:44 PM NONVA NOTE: LOCAL TITLE: LABORATORY NONVA NOTE STANDARD TITLE: NONVA NOTE DATE OF NOTE: MAY 20, 2022@15:44 ENTRY DATE: JUL 29, 2022@15:44:56 AUTHOR: MIC CORTEZ EXP COSIGNER: URGENCY: STATUS: COMPLETED This note contains attached LABORATORY scanned document(s) received from an outside facility. Open [facility] Display to review the document(s). /baltazar/ MIC CORTEZ Community Dietitian Signed: 07/29/2022 15:45 MIC CORTEZ [facility]
--- OUTSIDE RECORDS SUMMARY | 2023-06-24 08:38 | XMS_ITS | Encounter Summary ---
Author Name Department of [facility] Organization Department of [facility] Address [address] [place] [address] Insurance Providers: All historical and current Section Date Range: From patient's date of to the date document was created. This section includes the names of all active insurance providers for the patient. Insurance Provider Type of Coverage Plan Name Start of Policy Coverage End of Policy Coverage Group Number Member ID Insurance Provider's Telephone Number Policy Talavera's Name Patient's Relationship to Policy Talavera [facility] ([id number]) PRESCRIPT ION GEHA May 30, 2005 [id number] SONIA GUTIERRES PATIENT GEHA (SECONDARY ) PREFERRED PROVIDER ORGANIZAT ION (PPO) GEHA A/B PRIMA RY May 30, 2005 [id number] [phone] SONIA GUTIERRES PATIENT GEHA (SECONDARY ) PREFERRED PROVIDER ORGANIZAT ION (PPO) GEHA A&B PRIMA RY May 30, 2005 [id number] [phone] SONIA GUTIERRES PATIENT [facility] PREFERRED PROVIDER ORGANIZAT ION (PPO) DO NOT USE May 30, 2005 [id number] [phone] TONI BRITO PATIENT MEDICARE (WNR) MEDICARE (M) PART A Jan 29, 2000 PART A [id number] [phone] SONIA GUTIERRES PATIENT MEDICARE (WNR) MEDICARE (M) PART B Jan 29, 2000 PART B [id number] [phone] SONIA GUTIERRES PATIENT Selected Encounter This section includes the information on record at OR for the Encounter. Date/Time Encounter Type Encounter Description Reason Provider Source Aug 09, 2022 09:30 AM OFF/OP CNSLTJ NEW/EST MOD 40 CARDIOLOGY ICD-10-CM I47.1 Supraventricular tachycardia MARSHA HUBER [facility] Encounter Template Text not used by [place] Assessments - Encounter Diagnoses This section includes the primary and secondary diagnoses documented for the Encounter. Date/Time Primary/Secondary Diagnosis Diagnosis Name Provider Source Aug 19, 2022 10:21 AM PRIMARY Supraventricular tachycardia MARSHA HUBER [facility] Aug 19, 2022 10:21 AM SECONDARY Athscl heart disease of mechoopda coronary artery w/o ang pctrs MARSHA HUBER [facility] Aug 19, 2022 10:21 AM SECONDARY Essential (primary) hypertension MARSHA HUBER [facility] Aug 19, 2022 10:21 AM SECONDARY Thoracic aortic aneurysm, without rupture, unspecified MARSHA HUBER [facility] Plan of Treatment: Future Appointments (+ 6 months) and Future Tests (+/- 45 days) The Plan of Treatment section includes future care activities for the patient [facility] This section includes future appointments and future orders which are active, pending or scheduled. Future Appointments This section includes appointments that were scheduled to occur 6 months from the date of the Encounter, up to a maximum of 20 appointments. The data comes from all [place] treatment facilities. Appointment Date/Time Appointment Type Appointme nt Facility Name October 18, 2022 10:00 AM AMBULATORY - MEDICINE [facility] October 18, 2022 10:45 AM AMBULATORY - NONE [facility] October 18, 2022 11:15 AM AMBULATORY - NONE [facility] Nov 02, 2022 10:45 AM AMBULATORY - MEDICINE [facility] Jan 07, 2023 10:[address] [facility] Vital Signs: All taken on the encounter date This section contains inpatient and outpatient Vital Signs collected on the date of the Encounter. Date/Time Temperature Pulse Blood Pressure Respiratory Rate SP02 Pain Height Weight Body Mass Index Source Aug 09, 2022 09:32 AM 129/71 mm[Hg] [facility] Aug 09, 2022 09:27 AM 97.5 F 73 /min 144/78 mm[Hg] 16 /min 96 % 0 [facility] Social History: Smoking Status (Most current) and Tobacco Use (All prior to encounter date) This section includes the most current, and the historical, smoking and tobacco- related health factors from the [place] facility where the Encounter took place. Current Smoking Status This section includes the most current smoking, or tobacco-related health factor, from the [place] facility where the Encounter took place. Date/Time Current Smoking Status Comment Facil ity September 28, 2021 09:30 AM OR-TOBACCO NEVER USED [facility] Tobacco Use History This section includes a history of the smoking, or tobacco-related health factors, that were collected on or before the date of the Encounter. The data comes from the [place] facility where the Encounter took place. Date/Time Smoking Status/Tobacco Use Comment F acility Nov 10, 2020 08:30 AM OR-TOBACCO NEVER USED [facility] Radiology Reports: +/- 30 days of the [...] the Encounter. The data comes from all [place] treatment facilities. Date/Time Radiology Report Provider Source Aug 09, 2022 07:37 AM LNR INCIDENTAL NOD ULE LD FOLLOW UP: ALICE GUTIERRES NASREEN [id number] F Exm Date: AUG 09, 2022@07:37 Req Phys: NAKITA HERNANDEZ Loc: [facility] PULM CHART CHECK LNT (Req' Img Loc: CT IMAGING Service: Unknown (Case [id number] COMPLETE) LNR INCIDENTAL NODULE LD FOLLOW U(CT Detailed) CPT:92994 Proc Modifiers : LOW DOSE PROTOCOL Reason for Study: Low Dose CT F/U Nodule Clinical History: IS NOT under investigation for COVID-19 or is COVID-19 negative f/u lung nodules Responsible provider name and phone number to notify for critical findings if other than user placing the order and pager listed below: User placing orders pager: [phone] Kiara LAST 3: Collection DT Specimen Test [...] 09, 2022 Date Verified: AUG 09, 2022 Mainframe Programmer E-Sig:/ES/MIRNA CHRISTIANSON MD Report: EXAM: Non-Contrast Low-Dose [...] Primary Interpreting Staff: MIRNA CHRISTIANSON MD, RADIOLOGIST (Mainframe Programmer) /MIRNA JARAMILLO [facility] Encounter Notes: All associated encounter notes This section contains the clinical notes associated to the Encounter. Date/Time Encounter Note(s) Provider Source Aug 09, 2022 10:15 AM CARDIOLOGY DIAGNOSTIC STUDY CONSULT: LOCAL TITLE: CARDIAC ELECTROPHYSIOLOGY CONSULT STANDARD TITLE: CARDIOLOGY DIAGNOSTIC STUDY CONSULT DATE OF NOTE: AUG 09, 2022@10:15 ENTRY DATE: AUG 09, 2022@10:15:14 AUTHOR: MARSHA HUBER COSIGNER: URGENCY: STATUS: COMPLETED Requesting Provider: Dr. Ventura Reason for consult: SVT History of Present Illness: Mrs. Gutierres is an 87 year old female with history of nonobstructive coronary disease, giant cell arteritis, polymyalgia rheumatica, breast cancer status post lumpectomy/radiation, thoracic aortic aneurysm and hypertension who had recent episode of palpitation that led to an ED visit diagnosing with SVT. She is now referred to EP for further evaluation. She mentions that on 05/20/22 she was sitting at home drinking a glass of wine when she felt her heart racing. She had no chest pain or SOB. A fellow resident who is a retired [...] with plans to follow up with PCP. She had another episode more recently, short-lived and terminated on its own but she felt a little dizzy at the time. No syncope or loss of consciousness. No other episodes before or after these two. No history of palpitation or syncope during her adolescent or childhood. No history of syncope. She is otherwise feeling fine and has no other concerns today. Review of Systems (refer to HPI): A 14 point review of systems was performed and rest of the review of the systems are negative except as mentioned above. Past Medical History: Active problems - Computerized Problem List is [...] - 2011 4. Polymyalgia rheumatica 5. Prediabetes ([facility] [id number]) 6. 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 - pT1c, N0, M0-Stage 1A - s/p lumpectomy 06/2014, radiation therapy - On Anastrazole since 07/2014 7. History of cholecystectomy 8. History of total knee arthroplasty - R knee 9. Peripheral vascular disease - s/p stenting Femoral artery, 2008 10. Sleep Apnea ([facility] [id number]) 11. Benign essential hypertension 12. Thoracic aortic aneurysm without rupture Social: Drinks socially, 1 glass of wine/week Lives in a assisted community in [place]. Has adult children and grandchildren nearby. Allergies: Patient has answered NKA Active Medications: Active Outpatient Medications (including Supplies): AMLODIPINE BESYLATE 2.5MG TAB TAKE ONE TABLET BY MOUTH ACTIVE EVERY DAY FOR BLOOD PRESSURE ANASTROZOLE 1MG TAB TAKE ONE TABLET BY MOUTH EVERY DAY ACTIVE ASPIRIN 81MG CHEW TAB CHEW ONE TABLET BY MOUTH EVERY DAY ACTIVE ATORVASTATIN CALCIUM 80MG TAB TAKE ONE TABLET BY MOUTH ACTIVE EVERY DAY CALCIUM 250MG/VITAMIN D 125 UNT TAB TAKE 2 TABLETS BY HOLD MOUTH EVERY DAY CHOLECALCIF 25MCG (D3-1,000UNIT) TAB TAKE TWO TABLETS BY HOLD MOUTH EVERY DAY HYDROCHLOROTHIAZIDE 25MG TAB TAKE ONE-HALF TABLET BY MOUTH ACTIVE EVERY DAY LISINOPRIL 40MG TAB TAKE ONE TABLET BY MOUTH EVERY DAY FOR ACTIVE BLOOD PRESSURE METOPROLOL SUCCINATE 50MG SA TAB TAKE ONE TABLET BY MOUTH ACTIVE AT BEDTIME OLOPATADINE HCL 0.1% OPH SOLN INSTILL 1 DROP IN BOTH EYES HOLD TWICE A DAY OMEPRAZOLE 20MG EC CAP TAKE ONE CAPSULE BY MOUTH TWICE A ACTIVE WEEK ON AN EMPTY STOMACH, AT LEAST 30 MINUTES PRIOR TO A MEAL Today's Blood Pressure: Blood Pressure: 129/71 (08/09/2022 09:32) Pulse: 73 (08/09/2022 09:27) Pain: 0 (08/09/2022 09:27) Weight: Refused (08/09/2022 09:27) Exam: Jugular Venous Pressure: Not elevated. Cardiovascular: S1/S2 Present. No murmur, rubs or gallops. Lungs: Bilateral clear on auscultation. Abdomen: Soft, bowel sounds present Extremities: Pedal pulses present. No cyanosis/Clubbing/edema. Neuro: No focal motor neurological deficits. Psych: Stable mood/affect. Labs: LAB RESULTS TODAY - NONE FOUND HEMOGLOBIN A1C 5.8 (03/16/22) CTA chest (04/01/2022): Impression: 1. The maximum diameter of the thoracic aorta is 4.7 cm located in the ascending aorta. This is stable compared with the chest CTA from 09/02/2021 when the aorta at this level measured 4.7 cm. 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 2. Multiple pulmonary nodules are stable, including a 1.3 cm solid pulmonary nodule in the left upper lobe. 3. Stable thyroid nodules, including a 1.7 cm hypodense nodule in the right thyroid lobe. Consider further evaluation with thyroid ultrasound if not already performed. ECG today: Sinus rhythm with PACs, 95 bpm, NV 188 ms, QRS 76 ms, QTC 461 ms. For episode of SVT which was documented when she presented at [facility] on 05/20[facility]2022, shows narrow complex tachycardia rate about 160, could be short to mid RP tachycardia, as P wave either falling on QRS or T wave, and appears terminating on V, likely AVNRT. ASSESSMENT/PLAN: Mrs. Gutierres is an 87 year old female with history of nonobstructive coronary disease, giant cell arteritis, polymyalgia rheumatica, breast cancer status post lumpectomy/radiation, thoracic aortic aneurysm and hypertension who had recent episode of palpitation that led to an ED visit diagnosing with SVT. She is now referred to EP for further evaluation. #. SVT, likely AVNRT #. CAD #. Thoracic aortic aneurysm #. Hypertension #. History of giant cell arteritis #. History of breast cancer status post lumpectomy/radiation RECOMMENDATION: -Given she had few, only 2 episodes of SVT, one self-terminating, other with Valsalva maneuver we discussed about possible options. As these episodes are infrequent and terminating on its own or with Valsalva, I discussed about performing the Valsalva maneuver when this happens. If these episodes become frequent, then we can either consider escalating her beta-blockade therapy or consider EP study/ablation. Based on our discussion today, she was not keen to undergo ablation for now but would be willing to increase the medication if these episodes happen frequently. She can follow-up with us as needed if these episodes become more frequent. Follow-up with general cardiology/primary care for thoracic aortic aneurysm. Thank you for asking us to see your patient. Please do not hesitate to contact me should you need any additional information. /baltazar/ MARSHA HUBER MD PHD STAFF PHYSICIAN-CLINICAL CARDIAC ELECTROPHYSIOLOGY Signed: 08/09/2022 11:45 Receipt Acknowledged By: * AWAITING SIGNATURE * DOMINIC TREJO SHARMA B [facility] Aug 09, 2022 09:29 AM INTERNAL MEDICINE OUTPATIENT NOTE: LOCAL TITLE: MEDICINE CLINIC NURSING NOTE STANDARD TITLE: INTERNAL MEDICINE OUTPATIENT NOTE DATE OF NOTE: AUG 09, 2022@09:29 ENTRY DATE: AUG 09, 2022@09:29:30 AUTHOR: CONRAD MALIK COSIGNER: URGENCY: STATUS: COMPLETED TYPE OF VISIT: Appointment Check In Type of appointment: In-person appointment REASON FOR VISIT: ardiac f/u ALLERGIES: Patient has answered NKA VITAL SIGNS: Blood Pressure: 144/78, recheck 129/71 Pulse: 73 (08/09/2022 09:27) Respiration: 16 (08/09/2022 09:27) Temperature: 97.5 F [36.4 C] (08/09/2022 09:27) Weight: Refused (08/09/2022 09:27) Height: 61.5 in [156.2 cm] (03/16/2022 10:04) BMI: 0.0 O2 Sat: 96% (08/09/2022 09:27) Pain: 0 (08/09/2022 09:) PAIN SCREEN: Patient is not having significant pain that they wish to discuss with their provider today. MEDICATION Over the Counter/Herbal Medications: The patient denies taking any outside medications or herbals. /baltazar/ CONRAD MALIK LPN, LPN Signed: 08/09/2022 09:31 CONRAD MALIK [facility]
--- OUTSIDE RECORDS SUMMARY | 2023-06-24 08:38 | XMS_ITS | Encounter Summary ---
Author Name [facility] of [facility] Address [address] [place] [address] Insurance Providers: All historical and current Section Date Range: From patient's date of to the date document was created. This section includes the names of all active insurance providers for the patient. Insurance Provider Type of Coverage Plan Name Start of Policy Coverage End of Policy Coverage Group Number Member ID Insurance Provider's Telephone Number Policy Talavera's Name Patient's Relationship to Policy Talavera [facility] ([id number]) PRESCRIPT ION GEHA May 30, 2005 [id number] [phone] SONIA MOBLEY PATIENT GEHA (SECONDARY ) PREFERRED PROVIDER ORGANIZAT ION (PPO) GEHA A/B PRIMA RY May 30, 2005 [id number] SONIA MOBLEY PATIENT GEHA (SECONDARY ) PREFERRED PROVIDER ORGANIZAT ION (PPO) GEHA A&B PRIMA RY May 30, 2005 [id number] [phone] SONIA MOBLEY PATIENT [facility] PREFERRED PROVIDER ORGANIZAT ION (PPO) DO NOT USE May 30, 2005 [id number] [phone] TONI BRITO PATIENT MEDICARE (WNR) MEDICARE (M) PART A Jan 29, 2000 PART A [id number] SONIA MOBLEY PATIENT MEDICARE (WNR) MEDICARE (M) PART B Jan 29, 2000 PART B [id number] [phone] SONIA MOBLEY PATIENT Selected Encounter This section includes the information on record at [place] for the Encounter. Date/Time Encounter Type Encounter Description Reason Provider Source Jun 29, 2022 11:00 AM ADM SARSCV2 BVL 30MCG/.3ML B GENERAL INTERNAL MEDICINE ICD-10-CM Z23 Encounter for immunization AMEENA QUINTANA [facility] Encounter Template Text not used by [place] Assessments - Encounter Diagnoses This section includes the primary and secondary diagnoses documented for the Encounter. Date/Time Primary/Secondary Diagnosis Diagnosis Name Provider Source Jun 29, 2022 11:10 AM PRIMARY Encounter for immunization AMEENA QUINTANA [facility] Plan of Treatment: Future Appointments (+ 6 months) and Future Tests (+/- 45 days) The Plan of Treatment section includes future care activities for the patient from all [place] [facility]. This section includes future appointments and future orders which are active, pending or scheduled. Future Appointments This section includes appointments that were scheduled to occur 6 months from the date of the Encounter, up to a maximum of 20 appointments. The data comes from all [place] treatment facilities. Appointment Date/Time Appointment Type Appointme nt Facility Name Aug 09, 2022 07:30 AM AMBULATORY - NONE [facility] Aug 09, 2022 09:15 AM AMBULATORY - MEDICINE [facility] Aug 09, 2022 09:30 AM AMBULATORY MEDICINE [facility] Aug 09, 2022 10:30 AM AMBULATORY - MEDICINE [facility] October 18, 2022 10:00 AM AMBULATORY - MEDICINE [facility] October 18, 2022 10:45 AM AMBULATORY - NONE [facility] October 18, 2022 11:15 AM AMBULATORY NONE [facility] Nov 02, 2022 10:45 AM AMBULATORY - MEDICINE [facility] Lab Results: +/- 30 days of the encounter This section includes the Chemistry and Hematology Lab Results on record with [place] for the patient. Radiology Reports and Pathology Reports are provided separately, in subsequent sections. Lab Results This section contains the Chemistry/Hematology Results that were resulted 30 days before or 30 daysafter the date of the Encounter. Date/Time Source Result Type Result - Unit Interpretation Reference Range Comment Jun 29, 2022 11:21 AM [facility] BASIC METABOLIC PANEL+MG Specimen Type: PLASMA No comment entered. Ordering Provider: DOMINIC TREJO Report Released Date/Time: Jun 29, 2022 10:17 AM Reporting Lab: [facility] [id number] Performing Lab: [facility] [id number] CREATININE 0.6 0.5-1.0 UREA NITROGEN 15 7-20 GLUCOSE 94 70-100 SODIUM 141 136-145 POTASSIUM 3.9 3.5-5.1 CHLORIDE 108 H 98-107 CO2 27 22-29 CALCIUM 9.2 8.4-10.2 MAGNESIUM 1.9 1.6-2.6 ANION GAP 6 5-15 CREAT EGFR(CKD-EPI ) 87 >60 Jun 29, 2022 11:21 AM [facility] TSH W/REFLEX TO FREE T4 Specimen Type: PLASMA No comment entered. Ordering Provider: ALBARO AGUILLON Report Released Date/Time: Jun 29, 2022 11:24 AM Reporting Lab: [facility] [id number] Performing Lab: [facility] [id number] TSH 0.62 0.35-4.94 Vital Signs: All taken on the encounter date This section contains inpatient and outpatient Vital Signs collected on the date of the Encounter. Date/Time Temperature Pulse Blood Pressure Respiratory Rate SP02 Pain Height Weight Body Mass Index Source Jun 29, 2022 09:44 AM 142/76 mm[Hg] [facility] Jun 29, 2022 09:37 AM 98 /min 146/78 mm[Hg] 16 /min 96 % 0 165.3 lb 31 [facility] Immunizations: All administered on the encounter date This section contains immunizations associated to the Encounter. Immunization Series Date Issued Reaction Comments COVID-19 (PFIZER), MRNA, LNP -S, BIVALENT BOOSTER, PF, 30 MCG/0.3 ML DOSE 1 Jun 29, 2022 Social History: Smoking Status (Most current) and Tobacco Use (All prior to encounter date) This section includes the most current, and the historical, smoking and tobacco- related health factors from the [place] facility where the Encounter took place. Current Smoking Status This section includes the most current smoking, or tobacco-related health factor, from the [place] facility where the Encounter took place. Date/Time Current Smoking Status Comment Robyn baez September 28, 2021 09:30 AM VA-TOBACCO NEVER USED [facility] Tobacco Use History This section includes a history of the smoking, or tobacco-related health factors, that were collected on or before the date of the Encounter. The data comes from the [place] facility where the Encounter took place. Date/Time Smoking Status/Tobacco Use Comment F acility Nov 10, 2020 08:30 AM VA-TOBACCO NEVER USED [facility] Encounter Notes: All associated encounter notes This section contains the clinical notes associated to the Encounter. Date/Time Encounter Note(s) Provider Source Jun 29, 2022 11:10 AM NURSING IMMUNIZATI ON NOTE: LOCAL TITLE: [facility] COVID-19 VACCINE ADMINISTRATION STANDARD TITLE: NURSING IMMUNIZATION NOTE DATE OF NOTE: JUN 29, 2022@11:10 ENTRY DATE: JUN 29, 2022@11:10:09 AUTHOR: AMEENA QUINTANA EXP COSIGNER: URGENCY: STATUS: COMPLETED Pfizer Bivalent (preferred) The patient was given the EUA Fact Sheet for this vaccine which lists the benefits and side effects of the vaccine and which reviews the risks of the vaccine. The fact sheet was reviewed with the patient andthey were given an opportunity to ask questions. The patient denied any prior severe reaction to this vaccine or its components or a severe allergic reaction such as anaphylaxis to any vaccine or to any injectable therapy. The patient gave verbal consent to receive the vaccine. Administered: COVID-19 (VeriTran), MRNA, LNP-S, BIVALENT BOOSTER, PF, 30 MCG/0.3 ML DOSE Date Administered: Jun 29, 2022 11:00 Series: Series 1 Burn Nurse: [employer] Lot: [id number] Exp Date: Jun 29, 2023 Admin Route/Site: INTRAMUSCULAR/RIGHT DELTOID Dosage: 0.3mL Vaccine Information Statement(s): COVID-19 IPS GroupNTPanvidea (12+ YRS) EUA FACT SHEET May 06, 2022 ([place]ATVIAN) Order By: Policy Administered By: Ameena Quintana Vaccine administered without complications. The patient was advised to remain in the facility for 15 minutes post vaccination.The patient was given a completed COVID-19 vaccination record card,a copy of the [place] Side Effects and Adverse Events Reporting Fact Sheet and instructed on how to report any adverse reactions. /baltazar/ AMEENA QUINTANA RN REGISTERED NURSE Signed: 06/29/2022 11:10 AMEENA QUINTANA [facility]
--- OUTSIDE RECORDS SUMMARY | 2023-06-24 08:39 | XMS_ITS | Encounter Summary ---
Author Name [facility] Organization [facility] Address [address] [place] [address] Insurance Providers: All historical and current Section Date Range: From patient's date of to the date document was created. This section includes the names of all active insurance providers for the patient. Insurance Provider Type of Coverage Plan Name Start of Policy Coverage End of Policy Coverage Group Number Member ID Insurance Provider's Telephone Number Policy Talavera's Name Patient's Relationship to Policy Talavera [facility] ([id number]) PRESCRIPT ION GEHA May 30, 2005 [id number] [phone] SONIA MOBLEY PATIENT GEHA (SECONDARY ) PREFERRED PROVIDER ORGANIZAT ION (PPO) GEHA A&B PRIMA RY May 30, 2005 [id number] SONIA MOBLEY PATIENT GEHA (SECONDARY ) PREFERRED PROVIDER ORGANIZAT ION (PPO) GEHA A/B PRIMA RY May 30, 2005 [id number] SONIA MOBLEY PATIENT [facility] PREFERRED PROVIDER ORGANIZAT ION (PPO) DO NOT USE May 30, 2005 [id number] TONI BRITO PATIENT MEDICARE (WNR) MEDICARE (M) PART A Jan 29, 2000 PART A [id number] [phone] SONIA MOBLEY PATIENT MEDICARE (WNR) MEDICARE (M) PART B Jan 29, 2000 PART B [id number] [phone] SONIA MOBLEY PATIENT Selected Encounter This section includes the information on record at [place] for the Encounter. Date/Time Encounter Type Encounter Description Reason Pro vider Source Aug 10, 2022 10:16 AM Outpatient Encounter CLINICAL PHARMACY IHE Encounter Template Text not used by [place] Plan of Treatment: Future Appointments (+ 6 months) and Future Tests (+/- 45 days) The Plan of Treatment section includes future care activities for the patient from all [facility]. This section includes future appointments and future orders which are active, pending or scheduled. Future Appointments This section includes appointments that were scheduled to occur 6 months from the date of the Encounter, up to a maximum of 20 appointments. The data comes from all [facility] [address] [facility]. Appointment Date/Time Appointment Type Appointme nt Facility Name October 18, 2022 10:00 AM AMBULATORY - MEDICINE [facility] October 18, 2022 10:45 AM AMBULATORY - NONE [facility] October 18, 2022 11:15 AM AMBULATORY - NONE [facility] Nov 02, 2022 10:45 AM AMBULATORY - MEDICINE [facility] Jan 07, 2023 10:00 AM AMBULATORY MEDICINE [facility] Feb 10, 2023 08:30 AM AMBULATORY MEDICINE [facility] Social History: Smoking Status (Most current) and [...] Facil ity September 28, 2021 09:30 AM [place]-TOBACCO NEVER USED [facility] Tobacco Use History This section includes a history of the smoking, or tobacco-related health factors, that were collected on or before the date of the Encounter. The data comes from the [place] facility where the Encounter took place. Date/Time Smoking Status/Tobacco Use Comment F acility Nov 10, 2020 08:30 AM [place]-TOBACCO NEVER USED [facility] Radiology Reports: +/- 30 days [...] NOD ULE LD FOLLOW UP: ALICE MOBLEY [id number] -[id number] F Exm Date: AUG 09, 2022@07:37 Req Phys: NAKITA HERNANDEZ Loc: [facility] PULM CHART CHECK LNT (Req' Img Loc: CT IMAGING Service: Unknown (Case 123 COMPLETE) LNR INCIDENTAL NODULE LD FOLLOW U(CT Detailed) CPT:50019 Proc Modifiers : LOW DOSE PROTOCOL Reason for Study: Low Dose CT F/U Nodule Clinical History: Dolliver IS NOT under investigation for COVID-19 or is COVID-19 negative f/u lung nodules Responsible provider name and phone number to notify for critical findings if other than user placing the order and pager listed below: User placing orders pager: [phone] Kiara LAST 3: Collection DT Specimen Test [...] 09, 2022 Date Verified: AUG 09, 2022 Specialist Managers E-Sig:/ES/MIRNA CHRISTIANSON MD Report: EXAM: Non-Contrast Low-Dose [...] Primary Interpreting Staff: MIRNA CHRISTIANSON MD, RADIOLOGIST (Specialist Managers) /MIRNA JARAMILLO [facility] Encounter Notes: All associated encounter notes This section contains the clinical notes associated to the Encounter. Date/Time Encounter Note(s) Provider Source Aug 10, 2022 10:16 AM REPORT OF CONTACT: LOCAL TITLE: PATIENT CONTACT NOTE STANDARD TITLE: REPORT OF CONTACT DATE OF NOTE: AUG 10, 2022@10:16 ENTRY DATE: AUG 10, 2022@10:16:52 AUTHOR: MIC PLASCENCIA COSIGNER: URGENCY: STATUS: COMPLETED Patient contact Name of : ALICE MOBLEY Name/Relationship of Contact if other than Dolliver: Date & Time of Contact: Jul@10:17 Type of Contact: Telephone Reason for Contact: Received call from Dolliver through call center. Requests to have her prescriptions changed to 30 day supplies rather than 3 months at a time. Asked if she is still supposed to take atorvastatin stating she thought someone told her to stop it. Reviewed records, no mention of stopping atorvastatin. Given medical history, would recommend continuing statin therapy (secondary ppx). Changing Rxs to 30 day supply per request. /baltazar/ MIC PLASCENCIA PharmD, BCPP Clinical Pharmacist Practitioner Signed: 08/10/2022 10:18 MIC PLASCENCIA [facility]
--- OUTSIDE RECORDS SUMMARY | 2023-06-24 08:39 | XMS_ITS | Encounter Summary ---
Author Name [facility] of [facility] Organization [facility] of [facility] Address [address] [place] [address] Insurance Providers: All historical and current Section Date Range: From patient's date of to the date document was created. This section includes the names of all active insurance providers for the patient. Insurance Provider Type of Coverage Plan Name Start of Policy Coverage End of Policy Coverage Group Number Member ID Insurance Provider's Telephone Number Policy Talavera's Name Patient's Relationship to Policy Talavera [facility] ([id number]) PRESCRIPT ION GEHA May 30, 2005 [id number] [phone] SONIA MOBLEY PATIENT GEHA (SECONDARY ) PREFERRED PROVIDER ORGANIZAT ION (PPO) GEHA A/B PRIMA RY May 30, 2005 [id number] SONIA MOBLEY PATIENT GEHA (SECONDARY ) PREFERRED PROVIDER ORGANIZAT ION (PPO) GEHA A&B PRIMA RY May 30, 2005 [id number] SONIA MOBLEY PATIENT [facility] PREFERRED PROVIDER ORGANIZAT ION (PPO) DO NOT USE May 30, 2005 [id number] [phone] TONI BRITO PATIENT MEDICARE (WNR) MEDICARE (M) PART A Jan 29, 2000 PART A [id number] [phone] SONIA MOBLEY PATIENT MEDICARE (WNR) MEDICARE (M) PART B Jan 29, 2000 PART B [id number] [phone] SONIA MOBLEY PATIENT Selected Encounter This section includes the information on record at [place] for the Encounter. Date/Time Encounter Type Encounter Description Reason Provider Source Aug 11, 2022 09:59 AM Outpatient Encounter DERMATOLOGY ICD-10-CM L82.1 Other seborrheic keratosis KANA LEO I IHE Encounter Template Text not used by [place] Assessments - Encounter Diagnoses This section includes the primary and secondary diagnoses documented for the Encounter. Date/Time Primary/Secondary Diagnosis Diagnosis Name Provider Source Aug 11, 2022 10:12 AM PRIMARY Other seborrheic keratosis KANA LEO I [facility] Plan of Treatment: Future Appointments (+ 6 months) and Future Tests (+/- 45 days) The Plan of Treatment section includes future care activities for the patient from [facility]. This section includes future appointments and future orders which are active, pending or scheduled. Future Appointments This section includes appointments that were scheduled to occur 6 months from the date of the Encounter, up to a maximum of 20 appointments. The data comes from all [facility] facilities. Appointment Date/Time Appointment Type Appointme nt Facility Name October 18, 2022 10:00 AM AMBULATORY - MEDICINE [facility] October 18, 2022 10:45 AM [facility] October 18, 2022 11:15 [facility] Nov 02, 2022 10:45 AM AMBULATORY - MEDICINE [facility] Jan 07, 2023 10:00 AM AMBULATORY - MEDICINE [facility] Feb 10, 2023 08:30 AM AMBULATORY - MEDICINE [facility] Social History: Smoking Status [...] took place. Date/Time Current Smoking Status Comment Robny ity September 28, 2021 09:30 AM [place]-TOBACCO NEVER USED [facility] Tobacco Use History This section includes a history of the smoking, or tobacco-related health factors, that were collected on or before the date of the Encounter. The data comes from the [place] facility where the Encounter took place. Date/Time Smoking Status/Tobacco Use Comment F acility Nov 10, 2020 08:30 AM VA-TOBACCO NEVER USED [facility] Radiology Reports: +/- 30 days of the [...] NOD ULE LD FOLLOW UP: ALICE MOBLEY [facility] [id number] [phone] F Exm Date: AUG 09, 2022@07:37 Req Phys: NAKITA HERNANDEZ Loc: [facility] PULM CHART CHECK LNT (Req' Img Loc: CT IMAGING Service: Unknown (Case 123 COMPLETE) LNR INCIDENTAL NODULE LD FOLLOW U(CT Detailed) CPT:58410 Proc Modifiers : LOW DOSE PROTOCOL Reason for Study: Low Dose CT F/U Nodule Clinical History: [place] IS NOT under investigation for COVID-19 or is COVID-19 negative f/u lung nodules Responsible provider name and phone number to notify for critical findings if other than user placing the order and pager listed below: User placing orders pager: [phone] Kiara LAST 3: Collection DT Specimen Test [...] 09, 2022 Date Verified: AUG 09, 2022 Energy And Sustainability Manager E-Sig:/ES/MIRNA CHRISTIANSON MD Report: EXAM: Non-Contrast Low-Dose [...] Primary Interpreting Staff: MIRNA CHRISTIANSON MD, RADIOLOGIST (Energy And Sustainability Manager) /MIRNA JARAMILLO [facility] Encounter Notes: All associated encounter notes This section contains the clinical notes associated to the Encounter. Date/Time Encounter Note(s) Provider Source Aug 11, 2022 09:59 AM TELEIMAGING REPORT : LOCAL TITLE: TELEDERMATOLOGY IMAGING REPORT CONSULT STANDARD TITLE: TELEIMAGING REPORT DATE OF NOTE: AUG 11, 2022@09:59 ENTRY DATE: AUG 11, 2022@09:59:24 AUTHOR: KANA LEO I EXP COSIGNER: URGENCY: STATUS: COMPLETED TELEDERMATOLOGY IMAGING REPORT CONSULT Has ADDENDA HISTORY: A new condition Images: The images were [...] over several years TREATMENT: No BIOPSY: No OVERALL CONSULT/IMAGE QUALITY: Fully satisfactory EXAM: Stuck-on waxy lightg brown plaque. Cerebriform architrecture. Well-dermcated border. IMPRESSION BASED ON IMAGES AND INFORMATION REVIEWED: PROBLEM A: Diagnosis: Seborrheic keratosis RECOMMENDATIONS FOR REFERRING PROVIDER: Benign. No further treatment or follow-up needed. RECOMMENDED FOLLOW-UP: None Cumulative time of review and management: 5 minutes or more /talat ELO MD INTERNAL MEDICINE/DERMATOLOGY STAFF Signed: 08/11/2022 10:12 08/11/2022 ADDENDUM STATUS: COMPLETED Please let pt know that skin lesion is a seborrheic keratosis and no further follow-up is needed. /baltazar/ Natalia Sales MD STAFF PHYSICIAN Signed: 08/11/2022 11:04 Receipt Acknowledged By: 08/11/2022 12:17 /talat JAIN REGISTERED NURSE 08/11/2022 ADDENDUM STATUS: COMPLETED VM left informing vet of the above /talat JAIN REGISTERED NURSE Signed: 08/11/2022 12:17 KANA LEO I [facility]
--- OUTSIDE RECORDS SUMMARY | 2023-06-24 08:39 | XMS_ITS | Encounter Summary ---
Author Name Department of Vetera [facility] Organization Department of Veter[facility] Affairs Address [address] [place] [address] Insurance Providers: All historical and current Section Date Range: From patient's date of to the date document was created. This section includes the names of all active insurance providers for the patient. Insurance Provider Type of Coverage Plan Name Start of Policy Coverage End of Policy Coverage Group Number Member ID Insurance Provider's Telephone Number Policy Talavera's Name Patient's Relationship to Policy Talavera [facility] ([id number]) PRESCRIPT ION GEHA May 30, 2005 [id number] [phone] SONIA MOBLEY PATIENT GEHA (SECONDARY ) PREFERRED PROVIDER ORGANIZAT ION (PPO) GEHA A/B PRIMA RY May 30, 2005 [id number] SONIA MOBLEY PATIENT GEHA (SECONDARY ) PREFERRED PROVIDER ORGANIZAT ION (PPO) GEHA A&B PRIMA RY May 30, 2005 [id number] [phone] SONIA MOBLEY PATIENT [facility] PREFERRED PROVIDER ORGANIZAT ION (PPO) DO NOT USE May 30, 2005 [id number] TONI BRITO PATIENT MEDICARE (WNR) MEDICARE (M) PART A Jan 29, 2000 PART A [id number] [phone] SONIA MOBLEY PATIENT MEDICARE (WNR) MEDICARE (M) PART B Jan 29, 2000 PART B [id number] [phone] SONIA MOBLEY PATIENT Selected Encounter This section includes the information on record at [place] for the Encounter. Date/Time Encounter Type Encounter Description Reason Provider Source Aug 09, 2022 09:15 AM ELECTROCARDIOGRAM TRACING EKG ICD-10-CM I49.8 Other specified cardiac arrhythmias YA MIRANDA Encounter Template Text not used by [place] Assessments - Encounter Diagnoses This section includes the primary and secondary diagnoses documented for the Encounter. Date/Time Primary/Secondary Diagnosis Diagnosis Name Provider Source Aug 12, 2022 08:55 AM PRIMARY Other specified cardiac arrhythmias [facility] Aug 12, 2022 08:55 AM SECONDARY Old myocardial infarction [facility] Plan of Treatment: Future Appointments (+ 6 months) and Future Tests (+/- 45 days) The Plan of Treatment section includes future care activities for the patient from [facility] [place] [facility]. This section includes future appointments and future orders which are active, pending or scheduled. Future Appointments This section includes appointments that were scheduled to occur 6 months from the date of the Encounter, up to a maximum of 20 appointments. The data comes from all [facility] facilities. Appointment Date/Time Appointment Type Appointme nt Facility Name October 18, 2022 10:00 AM AMBULATORY - MEDICINE [facility] October 18, 2022 10:45 AM AMBULATORY - NONE [facility] October 18, 2022 11:15 AM AMBULATORY - NONE [facility] Nov 02, 2022 10:45 AM AMBULATORY - MEDICINE [facility] Jan 07, 2023 10:00 AM AMBULATORY MEDICINE [facility] Vital Signs: All taken on the encounter date This section contains inpatient and outpatient Vital Signs collected on the date of the Encounter. Date/Time Temperature Pulse Blood Pressure Respiratory Rate SP02 Pain Height Weight Body Mass Index Source Aug 09, 2022 09:32 AM 129/71 mm[Hg] [facility] Aug 09, 2022 09:27 AM 97.5 F 73 /min 144/78 mm[Hg] 16 /min 96 % 0 [facility] Social History: Smoking Status (Most current) and Tobacco Use (All prior to encounter date) This section includes the most current, and the historical, smoking and tobacco- related health factors from the [place] facility where the Encounter took place. Current Smoking Status This section includes the most current smoking, or tobacco-related health factor, from the [place] facility where the Encounter took place. Date/Time Current Smoking Status Comment Facil ity September 28, 2021 09:30 AM [place]-TOBACCO NEVER USED [facility] Tobacco Use History This section includes a history of the smoking, or tobacco-related health factors, that were collected on or before the date of the Encounter. The data comes from the [place] facility where the Encounter took place. Date/Time Smoking Status/Tobacco Use Comment F manoj Nov 10, 2020 08:30 AM VA-TOBACCO NEVER USED [facility] Radiology Reports: +/- 30 days [...] the Encounter. The data comes from all [place] treatment facilities. Date/Time Radiology Report Provider Source Aug 09, 2022 07:37 AM LNR INCIDENTAL NOD ULE LD FOLLOW UP: ALICE MOBLEY [facility] [id number] [id number] F Exm Date: AUG 09, 2022@07:37 Req Phys: NAKITA HERNANDEZ Loc: [facility] PULM CHART CHECK LNT (Req' Img Loc: CT IMAGING Service: Unknown (Case 123 COMPLETE) LNR INCIDENTAL NODULE LD FOLLOW U(CT Detailed) CPT:47047 Proc Modifiers : LOW DOSE PROTOCOL Reason for Study: Low Dose CT F/U Nodule Clinical History: IS NOT under investigation for COVID-19 or is COVID-19 negative f/u lung nodules Responsible provider name and phone number to notify for critical findings if other than user placing the order and pager listed below: User placing orders pager: [phone] Kiara LAST 3: Collection DT Specimen Test [...] 09, 2022 Date Verified: AUG 09, 2022 Restaurant Area Manager E-Sig:/ES/MIRNA CHRISTIANSON MD Report: EXAM: Non-Contrast [...] Primary Interpreting Staff: MIRNA CHRISTIANSON MD, RADIOLOGIST (Restaurant Area Manager) /MIRNA JARAMILLO [facility]
--- OUTSIDE RECORDS SUMMARY | 2023-06-24 08:39 | XMS_ITS | Encounter Summary ---
Author Name [facility] Organization [facility] Address [address] [place] [address] Insurance Providers: All historical and current Section Date Range: From patient's date of to the date document was created. This section includes the names of all active insurance providers for the patient. Insurance Provider Type of Coverage Plan Name Start of Policy Coverage End of Policy Coverage Group Number Member ID Insurance Provider's Telephone Number Policy Talavera's Name Patient's Relationship to Policy Talavera [facility] ([id number]) PRESCRIPT ION GEHA May 30, 2005 [id number] SONIA MOBLEY PATIENT GEHA (SECONDARY ) PREFERRED PROVIDER ORGANIZAT ION (PPO) GEHA A&B PRIMA RY May 30, 2005 [id number] [phone] SONIA MOBLEY PATIENT GEHA (SECONDARY ) PREFERRED PROVIDER ORGANIZAT ION (PPO) GEHA A/B PRIMA RY May 30, 2005 [id number] SONIA MOBLEY PATIENT [facility] PREFERRED PROVIDER ORGANIZAT ION (PPO) DO NOT USE May 30, 2005 [id number] TONI BRITO PATIENT MEDICARE (WNR) MEDICARE (M) PART A Jan 29, 2000 PART A [id number] [phone] SONIA MOBLEY PATIENT MEDICARE (WNR) MEDICARE (M) PART B Jan 29, 2000 PART B [id number] [phone] SONIA MOBLEY PATIENT Selected Encounter This section includes the information on record at [place] for the Encounter. Date/Time Encounter Type Encounter Description Reason Provider Source Aug 10, 2022 02:44 PM Outpatient Encounter ADMIN PAT ACTIVTIES (MASNONCT) FREDO ASHLEY Encounter Template Text not used by [place] Plan of Treatment: Future Appointments (+ 6 months) and Future Tests (+/- 45 days) The Plan of Treatment section includes future care activities for the patient from all [place] [facility]. This section includes future appointments and future orders which are active, pending or scheduled. Future Appointments This section includes appointments that were scheduled to occur 6 months from the date of the Encounter, up to a maximum of 20 appointments. The data comes from all [place] treatment facilities. Appointment Date/Time Appointment Type Appointme nt Facility Name October 18, 2022 10:00 AM AMBULATORY - MEDICINE [facility] October 18, 2022 10:45 AM AMBULATORY - NONE [facility] October 18, 2022 11:15 AM AMBULATORY - NONE [facility] Nov 02, 2022 10:45 AM AMBULATORY - MEDICINE [facility] Jan 07, 2023 10:00 AM AMBULATORY MEDICINE [facility] Feb 10, 2023 08:30 AM AMBULATORY MEDICINE [facility] Social History: Smoking Status (Most current) and Tobacco Use (All prior to encounter date) This section includes the most current, and the historical, smoking and tobacco- related health factors from the [place] facility where the Encounter took place. Current Smoking Status This section includes the most current smoking, or tobacco-related health factor, from the [place] facility where the Encounter took place. Date/Time Current Smoking Status Comment Robyn baez September 28, 2021 09:30 AM [place]-TOBACCO NEVER USED [facility] Tobacco Use History This section includes a history of the smoking, or tobacco-related health factors, that were collected on or before the date of the Encounter. The data comes from the [place] facility where the Encounter took place. Date/Time Smoking Status/Tobacco Use Comment Farooq aranda Nov 10, 2020 08:30 AM HI-TOBACCO NEVER USED [facility] Radiology Reports: +/- 30 days of the [...] the Encounter. The data comes from all [place] treatment facilities. Date/Time Radiology Report Provider Source Aug 09, 2022 07:37 AM LNR INCIDENTAL NOD ULE LD FOLLOW UP: ALICE MOBLEY [id number] [id number] F Exm Date: AUG 09, 2022@07:37 Req Phys: NAKITA HERNANDEZ Loc: [facility] PULM CHART CHECK LNT (Req' Img Loc: CT IMAGING Service: Unknown (Case 123 COMPLETE) LNR INCIDENTAL NODULE LD FOLLOW U(CT Detailed) CPT:10132 Proc Modifiers : LOW DOSE PROTOCOL Reason for Study: Low Dose CT F/U Nodule Clinical History: IS NOT under investigation for COVID-19 or is COVID-19 negative f/u lung nodules Responsible provider name and phone number to notify for critical findings if other than user placing the order and pager listed below: User placing orders pager: [phone] Kiara LAST 3: Collection DT Specimen Test [...] 09, 2022 Date Verified: AUG 09, 2022 Engineering Group Manager E-Sig:/ES/MIRNA CHRISTIANSON MD Report: EXAM: Non-Contrast [...] Primary Interpreting Staff: MIRNA CHRISTIANSON MD, RADIOLOGIST (Engineering Group Manager) /MIRNA JARAMILLO [facility] Encounter Notes: All associated encounter notes This section contains the clinical notes associated to the Encounter. Date/Time Encounter Note(s) Provider Source Aug 10, 2022 02:45 PM LETTERS: LOCAL TITLE: FOLLOW UP RESULTS LETTER STANDARD TITLE: LETTERS DATE OF NOTE: AUG 10, 2022@14:45 ENTRY DATE: AUG 10, 2022@14:45:28 AUTHOR: FREDO ASHLEY EXP COSIGNER: URGENCY: STATUS: COMPLETED [facility] [address] [place] [address] Jul ALICE MOBLEY [address] [facility] [address] Dear [place]by: Your recent chest imaging on Jul showed: no lung nodules that require further follow up at this time. no change in the nodule(s) on your chest CT scans over a long enough period of time that we can now consider them to be benign (or cancer free). No further follow-up of the nodule(s) is necessary. FREDO ASHLEY RN REGISTERED NURSE FREDO ASHLEY [facility] Aug 10, 2022 02:44 PM PULMONARY NOTE: LOCAL TITLE: PULMONARY LUNG NODULE NOTE STANDARD TITLE: PULMONARY NOTE DATE OF NOTE: AUG 10, 2022@14:44 ENTRY DATE: AUG 10, 2022@14:44:16 AUTHOR: FREDO ASHLEY EXP COSIGNER: URGENCY: STATUS: COMPLETED Tracking ended. Date of initial imaging exam: 08/13/2021 Lnr Initial Image Date Date of current follow up image: August 09, 2022 Site: [facility] Reason nodule will no longer be tracked: Tracking completed per guidelines. Plan: Patient will be discharged from lung nodule tracking. No further follow up is needed at this time. Results letter sent to patient. 08/09/22 FINDINGS: Pulmonary nodules: Index Pulmonary Nodule: Average [...] angiogram. Further management per the cardiology service. --->PCP FYI Lung Nodule Tracking has been completed. No further surveillance of these nodules is indicated per Fleischner Society Guidelines. Please review incidental/chronic findings #[address] scan unrelated to lung nodules to follow up if indicated. /baltazar/ FREDO ASHLEY RN REGISTERED NURSE Signed: 08/10/2022 14:45 Receipt Acknowledged By: * AWAITING SIGNATURE * DOMINIC TREJO MARISSA M [facility]
--- OUTSIDE RECORDS SUMMARY | 2023-06-24 08:39 | XMS_ITS | Encounter Summary ---
Author Name Department of [facility] Organization Department of [facility] Address [address] [place] [address] Insurance Providers: All historical and current Section Date Range: From patient's date of to the date document was created. This section includes the names of all active insurance providers for the patient. Insurance Provider Type of Coverage Plan Name Start of Policy Coverage End of Policy Coverage Group Number Member ID Insurance Provider's Telephone Number Policy Talavera's Name Patient's Relationship to Policy Talavera [facility] ([id number]) PRESCRIPT ION GEHA May 30, 2005 [id number] SONIA MOBLEY PATIENT GEHA (SECONDARY ) PREFERRED PROVIDER ORGANIZAT ION (PPO) GEHA A/B PRIMA RY May 30, 2005 [id number] SONIA MOBLEY PATIENT GEHA (SECONDARY ) PREFERRED PROVIDER ORGANIZAT ION (PPO) GEHA A&B PRIMA RY May 30, 2005 [id number] [phone] SONIA MOBLEY PATIENT [facility] PREFERRED PROVIDER ORGANIZAT ION (PPO) DO NOT USE May 30, 2005 [id number] [phone] TONI BRITO PATIENT MEDICARE (WNR) MEDICARE (M) PART A Jan 29, 2000 PART A [id number] [phone] SONIA MOBLEY PATIENT MEDICARE (WNR) MEDICARE (M) PART B Jan 29, 2000 PART B [id number] [phone] SONIA MOBLEY PATIENT Selected Encounter This section includes the information on record at [place] for the Encounter. Date/Time Encounter Type Encounter Description Reason Pro vider Source Aug 09, 2022 12:00 AM Outpatient Encounter EVENT (HISTORICAL) IHE Encounter Template Text not used by SD Plan of Treatment: Future Appointments (+ 6 months) and Future Tests (+/- 45 days) The Plan of Treatment section includes future care activities for the patient from [facility] [place] [facility] This section includes future appointments and future orders which are active, pending or scheduled. Future Appointments This section includes appointments that were scheduled to occur 6 months from the date of the Encounter, up to a maximum of 20 appointments. The data comes from all [place] treatment facilities. Appointment Date/Time Appointment Type Appointme nt Facility Name October 18, 2022 10:00 AM AMBULATORY - MEDICINE [facility] October 18, 2022 10:45 AM AMBULATORY - NONE [facility] October 18, 2022 11:15 AM AMBULATORY - NONE [facility] Nov 02, 2022 10:45 AM AMBULATORY MEDICINE [facility] Jan 07, 2023 10:00 AM AMBULATORY MEDICINE [facility] Vital Signs: All taken on the encounter date This section contains inpatient and outpatient Vital Signs collected on the date of the Encounter. Date/Time Temperature Pulse Blood Pressure Respiratory Rate SP02 Pain Height Weight Body Mass Index Source Aug 09, 2022 09:32 AM 129/71 mm[Hg] [facility] Aug 09, 2022 09:27 AM 97.5 F 73 /min 144/78 mm[Hg] 16 /min 96 % 0 [facility] Social History: Smoking Status (Most current) and Tobacco Use (All prior to encounter date) This section includes the most current, and the historical, smoking and tobacco- related health factors from the SD facility where the Encounter took place. Current Smoking Status This section includes the most current smoking, or tobacco-related health factor, from the SD facility where the Encounter took place. Date/Time Current Smoking Status Comment Robyn ity September 28, 2021 09:30 AM SD-TOBACCO NEVER USED [facility] Tobacco Use History This section includes a history of the smoking, or tobacco-related health factors, that were collected on or before the date of the Encounter. The data comes from the SD facility where the Encounter took place. Date/Time Smoking Status/Tobacco Use Comment F acility Nov 10, 2020 08:30 AM VA-TOBACCO NEVER USED [facility] Radiology Reports: +/- 30 days of [...] the Encounter. The data comes from all [place] treatment facilities. Date/Time Radiology Report Provider Source Aug 09, 2022 07:37 AM LNR INCIDENTAL NOD ULE LD FOLLOW UP: ALICE MOBLEY NASREEN [id number] F Exm Date: AUG 09, 2022@07:37 Req Phys: NAKITA HERNANDEZ Loc: [facility] PULM CHART CHECK LNT (Req' Img Loc: CT IMAGING Service: Unknown (Case [id number] COMPLETE) LNR INCIDENTAL NODULE LD FOLLOW U(CT Detailed) CPT:18899 Proc Modifiers : LOW DOSE PROTOCOL Reason for Study: Low Dose CT F/U Nodule Clinical History: IS NOT under investigation for COVID-19 or is COVID-19 negative f/u lung nodules Responsible provider name and phone number to notify for critical findings if other than user placing the order and pager listed below: User placing orders pager: [phone] Kiara LAST 3: Collection DT Specimen Test [...] 09, 2022 Date Verified: AUG 09, 2022 Mineral Technologist E-Sig:/ES/MIRNA CHRISTIANSON MD Report: EXAM: Non-Contrast Low-Dose [...] Primary Interpreting Staff: MIRNA CHRISTIANSON MD, RADIOLOGIST (Mineral Technologist) /MIRNA JARAMILLO [facility]
--- OUTSIDE RECORDS SUMMARY | 2023-06-24 08:39 | XMS_ITS | Encounter Summary ---
Author Name [facility] Organization [facility] Address [address] [place] [address] Insurance Providers: All historical and current Section Date Range: From patient's date of to the date document was created. This section includes the names of all active insurance providers for the patient. Insurance Provider Type of Coverage Plan Name Start of Policy Coverage End of Policy Coverage Group Number Member ID Insurance Provider's Telephone Number Policy Talavera's Name Patient's Relationship to Policy Talavera [employer] ([id number]) PRESCRIPT ION GEHA May [birth year], 2005 [id number] SONIA MOBLEY PATIENT GEHA (SECONDARY ) PREFERRED PROVIDER ORGANIZAT ION (PPO) GEHA A/B PRIMA RY May 30, 2005 [id number] [phone] SONIA MOBLEY PATIENT GEHA (SECONDARY ) PREFERRED PROVIDER ORGANIZAT ION (PPO) GEHA A&B PRIMA RY May 30, 2005 [id number] SONIA MOBLEY PATIENT [facility] PREFERRED PROVIDER ORGANIZAT ION (PPO) DO NOT USE May 30, 2005 [id number] TONI BRITO PATIENT MEDICARE (WNR) MEDICARE (M) PART A Jan 29, 2000 PART A [id number] [phone] SONIA MOBLEY PATIENT MEDICARE (WNR) MEDICARE (M) PART B Jan 29, 2000 PART B [id number] [phone] SONIA MOBLEY PATIENT Selected Encounter This section includes the information on record at [place] for the Encounter. Date/Time Encounter Type Encounter Description Reason Pro vider Source Aug 04, 2022 12:00 AM Outpatient Encounter ADMIN PAT ACTIVTIES (MASNONCT) IHE Encounter Template Text not used by [place] Plan of Treatment: Future Appointments (+ 6 months) and Future Tests (+/- 45 days) The Plan of Treatment section includes future care activities for the patient from all [facility] This section includes future appointments and [...] 07:30 AM AM[facility]ORY - [facility]ONE [place] [facility] Aug 09, 2022 09:15 AM [place] [facility] Aug 09, 2022 09:30 AM [facility] [place] [facility] Aug 09, 2022 10:30 AM [facility] [place]IC[place] [facility] October 18, 2022 10:00 AM [facility] [place] [facility] October 18, 2022 10:45 AM [facility] [place]ONE [place] [facility] October 18, 2022 11:15 AM [facility]ONE [place] [facility] Nov 02, 2022 10:45 AM AM[facility]ORY [place]IC[place] [facility] Jan 07, 2023 10:00 AM [facility] Social History: Smoking Status (Most current) [...] Robyn ity September 28, 2021 09:30 AM HI-TOBACCO NEVER USED [facility] Tobacco Use History This section includes a history of the smoking, or tobacco-related health factors, that were collected on or before the date of the Encounter. The data comes from the [place] facility where the Encounter took place. Date/Time Smoking Status/Tobacco Use Comment F acility Nov 10, 2020 08:30 AM HI-TOBACCO NEVER USED [facility] Radiology Reports: +/- 30 days of [...] ULE LD FOLLOW UP: ALICE MOBLEY NASREEN [id number] -[id number] F Exm Date: AUG 09, 2022@07:37 Req Phys: NAKITA HERNANDEZ Loc: [facility] PULM CHART CHECK LNT (Req' Img Loc: CT IMAGING Service: Unknown (Case [id number] COMPLETE) LNR INCIDENTAL NODULE LD FOLLOW U(CT Detailed) CPT:45399 Proc Modifiers : LOW DOSE PROTOCOL Reason for Study: Low Dose CT F/U Nodule Clinical History: [place] IS NOT under investigation for COVID-19 or is COVID-19 negative f/u lung nodules Responsible provider name and phone number to notify for critical findings if other than user placing the order and pager listed below: User placing orders pager: [phone] Kiara LAST 3: Collection DT Specimen Test [...] 09, 2022 Date Verified: AUG 09, 2022 Manager Telemarketing E-Sig:/ES/MIRNA CHRISTIANSON MD Report: EXAM: Non-Contrast Low-Dose [...] Primary Interpreting Staff: MIRNA CHRISTIANSON MD, RADIOLOGIST (Manager Telemarketing) /MIRNA JARAMILLO [facility] Encounter Notes: All associated encounter notes This section contains the clinical notes associated to the Encounter. Date/Time Encounter Note(s) Provider Source Aug 04, 2022 12:00 AM NONVA NOTE: LOCAL TITLE: OTOLAYRNGOLOGY NONVA NOTE STANDARD TITLE: NONVA NOTE DATE OF NOTE: AUG 04, 2022 ENTRY DATE: AUG 23, 2022@10:47:43 AUTHOR: PIPPA TSE EXP COSIGNER: URGENCY: STATUS: COMPLETED [facility] - Scanned Document This note contains attached OTOLAYRNGOLOGY scanned document(s) received from an outside facility. Open [facility] Display to review the document(s). /baltazar/ PIPPA TSE HEALTH INFORMATION SANITARIAN INSPECTOR Signed: 08/23/2022 10:47 PIPPA TSE [facility]
--- OUTSIDE RECORDS SUMMARY | 2023-06-24 08:40 | XMS_ITS | Encounter Summary ---
Author Name Department of [facility] Organization Department of [facility] Address [address] [place] [address] Insurance Providers: All historical and current Section Date Range: From patient's date of to the date document was created. This section includes the names of all active insurance providers for the patient. Insurance Provider Type of Coverage Plan Name Start of Policy Coverage End of Policy Coverage Group Number Member ID Insurance Provider's Telephone Number Policy Talavera's Name Patient's Relationship to Policy Talavera [facility] ([id number]) PRESCRIPT ION GEHA May 30, 2005 [id number] SONIA MOBLEY PATIENT GEHA (SECONDARY ) PREFERRED PROVIDER ORGANIZAT ION (PPO) GEHA A&B PRIMA RY May 30, 2005 [id number] SONIA MOBLEY PATIENT GEHA (SECONDARY ) PREFERRED PROVIDER ORGANIZAT ION (PPO) GEHA A/B PRIMA RY May 30, 2005 [id number] [phone] SONIA MOBLEY PATIENT [facility] PREFERRED PROVIDER ORGANIZAT ION (PPO) DO NOT USE May 30, 2005 [id number] TONI BRITO PATIENT MEDICARE (WNR) MEDICARE (M) PART A Jan 29, 2000 PART A [id number] [phone] SONIA MOBLEY PATIENT MEDICARE (WNR) MEDICARE (M) PART B Jan 29, 2000 PART B [id number] [phone] SONIA MOBLEY PATIENT Selected Encounter This section includes the information on record at [place] for the Encounter. Date/Time Encounter Type Encounter Description Reason Pro vider Source October 11, 2022 01:35 PM Outpatient Encounter TELEPHONE TRIAGE IHE Encounter Template Text not used by [place] Plan of Treatment: Future Appointments (+ 6 months) and Future Tests (+/- 45 days) The Plan of Treatment section includes future care activities for the patient from all [place] [facility]. This section includes future appointments and future orders which are active, pending or scheduled. Future Appointments This section includes appointments that were scheduled to occur 6 months from the date of the Encounter, up to a maximum of 20 appointments. The data comes from all [facility] facilities. Appointment Date/Time Appointment Type Appointme nt Facility Name October 18, 2022 10:00 AM [facility] October 18, 2022 10:45 AM [place] [facility] October 18, 2022 11:15 AM [facility] Nov 02, 2022 10:45 AM [facility] Jan 07, 2023 10:00 AM [facility] Feb 10, 2023 08:30 AM [facility] Mar 15, 2023 10:00 AM [facility] Mar 15, 2023 11:00 AM AMBULATORY - MEDICINE [facility] Social History: Smoking Status (Most current) and Tobacco Use (All prior to encounter date) This section includes the most current, and the historical, smoking and tobacco- related health factors from the [place] facility where the Encounter took place. Current Smoking Status This section includes the most current smoking, or tobacco-related health factor, from the [place] facility where the Encounter took place. Date/Time Current Smoking Status Comment Robyn baez September 28, 2021 09:30 AM [place]-TOBACCO NEVER USED [facility] Tobacco Use History This section includes a history of the smoking, or tobacco-related health factors, that were collected on or before the date of the Encounter. The data comes from the [place] facility where the Encounter took place. Date/Time Smoking Status/Tobacco Use Comment F manoj Nov 10, 2020 08:30 AM [place]-TOBACCO NEVER USED [facility] Radiology Reports: +/- 30 days [...] the Encounter. The data comes from all [place] treatment facilities. Date/Time Radiology Report Provider Source October 18, 2022 10:44 AM ANKLE LEFT 3 VIEWS : ALICE MOBLEY [id number] -[id number] F Exm Date: OCTOBER 18, 2022@10:44 Req Phys: DOMINIC TREJO Pat Loc: [facility] (Req'g Loc) Img Loc: MAIN X-RAY Service: Unknown (Case [id number] COMPLETE) ANKLE LEFT 3 VIEWS (RAD Detailed) CPT:60487 Proc Modifiers : STANDING LEFT Reason for Study: eval for OA Clinical History: IS NOT under investigation for COVID-19 or is COVID-19 negative L ankle pain with walking Responsible provider name and phone number to notify for critical findings if other than user placing the order and pager listed below: User placing orders pager: [phone] LAST CREATININE 0.6 (06/29/22) Report Status: Verified Date Reported: OCTOBER 18, 2022 Date Verified: OCTOBER 18, 2022 Career Coordinator E-Sig:/ES/KELSEY BISWAS DO Report: EXAMINATION: ANKLE LEFT 3 VIEWS 10/18/2022 10:44 AM INDICATION: eval for OA COMPARISON: No comparison Impression: No acute fracture or dislocation. The ankle mortise is intact. The talar dome is intact. No suspicious bone lesion. Mild degenerative change of the tibiotalar joint. Pes planus. Calcaneal enthesophyte formation. There is calcification in the distal Achilles tendon at the insertion. Atherosclerotic calcification noted. Primary Interpreting Staff: KELSEY BISWAS DO, RADIOLOGIST (Career Coordinator) /DDS KELSEY BISWAS [facility] Encounter Notes: All associated encounter notes This section contains the clinical notes associated to the Encounter. Date/Time Encounter Note(s) Provider Source October 11, 2022 01:35 PM ADMINISTRATIVE NOT E: LOCAL TITLE: CCC: SCHEDULING ADMINISTRATION STANDARD TITLE: ADMINISTRATIVE NOTE DATE OF NOTE: OCTOBER 11, 2022@13:35 ENTRY DATE: OCTOBER 11, 2022@13:35:52 AUTHOR: DEVEN KING EXP COSIGNER: URGENCY: STATUS: COMPLETED [facility]: SCHEDULING ADMINISTRATION Has ADDENDA Patient contact Name of [place]: ALICE MOBLEY Date & Time of Contact: September@13:36 Type of Contact: Reason for Contact: Patient calls regarding medication for swimming, discussed prior, and that she will be needing this soon. Caller is requesting return call. Please contact this [place] if appropriate. Thank you. /baltazar/ DEVEN KING VISN 23 [facility] AMSA Signed: 10/11/2022 13:38 Receipt Acknowledged By: 10/11/2022 13:58 /baltazar/ Dominic Sales MD STAFF PHYSICIAN 10/11/2022 14:02 /baltazar/ MICKI JAIN REGISTERED NURSE 10/11/2022 ADDENDUM STATUS: COMPLETED Will trial nitrofurantoin after swimming to see if this helps prevent infection. If she has breakthrough UTI on this, please let me know and we can try an alternative preventive antibiotic. /baltazar/ Dominic Sales MD STAFF PHYSICIAN Signed: 10/11/2022 13:58 Receipt Acknowledged By: 10/11/2022 14:02 /baltazar/ MICKI JAIN REGISTERED NURSE 10/11/2022 ADDENDUM STATUS: COMPLETED VM left informing vet of the above /talat JAIN REGISTERED NURSE Signed: 10/11/2022 14:03 DEVEN KING [facility]
--- OUTSIDE RECORDS SUMMARY | 2023-06-24 08:40 | XMS_ITS | Encounter Summary ---
Author Name Department of [facility] Organization Department of [facility] Address [address] [place] [address] Insurance Providers: All historical and current Section Date Range: From patient's date of to the date document was created. This section includes the names of all active insurance providers for the patient. Insurance Provider Type of Coverage Plan Name Start of Policy Coverage End of Policy Coverage Group Number Member ID Insurance Provider's Telephone Number Policy Talavera's Name Patient's Relationship to Policy Talavera [facility] ([id number]) PRESCRIPT ION GEHA May 30, 2005 [id number] SONIA MOBLEY PATIENT GEHA (SECONDARY ) PREFERRED PROVIDER ORGANIZAT ION (PPO) GEHA A/B PRIMA RY May 30, 2005 [id number] SONIA MOBLEY PATIENT GEHA (SECONDARY ) PREFERRED PROVIDER ORGANIZAT ION (PPO) GEHA A&B PRIMA RY May 30, 2005 [id number] SONIA MOBLEY PATIENT [facility] PREFERRED PROVIDER ORGANIZAT ION (PPO) DO NOT USE May 30, 2005 [id number] [phone] TONI BRITO PATIENT MEDICARE (WNR) MEDICARE (M) PART A Jan 29, 2000 PART A [id number] [phone] SONIA MOBLEY PATIENT MEDICARE (WNR) MEDICARE (M) PART B Jan 29, 2000 PART B [id number] [phone] SONIA MOBLEY PATIENT Selected Encounter This section includes the information on record at [place] for the Encounter. Date/Time Encounter Type Encounter Description Reason Provider Source October 18, 2022 11:15 AM ORTHC/PROSTC MGMT SBSQ ENC PROSTHETICS/ORTHOT ICS ICD-10-CM M25.571 Pain in right ankle and joints of right foot KIRILL BUSTAMANTE May Encounter Template Text not used by [place] Assessments - Encounter Diagnoses This section includes the primary and secondary diagnoses documented for the Encounter. Date/Time Primary/Secondary Diagnosis Diagnosis Name Provider Source October 18, 2022 11:28 AM PRIMARY Pain in right ankle and joints of right foot KIRILL BUSTAMANTE [facility] October 18, 2022 11:28 AM SECONDARY Pain in left ankle and joints of left foot KIRILL BUSTAMANTE [facility] Plan of Treatment: Future Appointments (+ 6 months) and Future Tests (+/- 45 days) The Plan of Treatment section includes future care activities for the patient from all [facility] This section includes future appointments and future orders which are active, pending or scheduled. Future Appointments This section includes appointments that were scheduled to occur 6 months from the date of the Encounter, up to a maximum of 20 appointments. The data comes from all [facility] facilities. Appointment Date/Time Appointment Type Appointme nt Facility Name Nov 02, 2022 10:45 AM AMBULATORY - MEDICINE [facility] Jan 07, 2023 10:00 AM AMBULATORY - MEDICINE [facility] Feb 10, 2023 08:30 AM AMBULATORY - MEDICINE [facility] Mar 15, 2023 10:00 AM AMBULATORY - NONE [facility] Mar 15, 2023 11:00 AM AMBULATORY - MEDICINE [facility] Vital Signs: All taken on the encounter date This section contains inpatient and outpatient Vital Signs collected on the date of the Encounter. Date/Time Temperature Pulse Blood Pressure Respiratory Rate SP02 Pain Height Weight Body Mass Index Source October 18, 2022 10:17 AM 122/73 mm[Hg] [facility] October 18, 2022 10:05 AM 77 /min 145/83 mm[Hg] 16 /min 97 % 0 61 in 163.3 lb 31 [facility] Social History: Smoking Status [...] Date/Time Current Smoking Status Comment Robyn baez October 18, 2022 10:00 AM VA-TOBACCO NEVER USED [facility] Tobacco Use History This section includes a history of the smoking, or tobacco-related health factors, that were collected on or before the date of the Encounter. The data comes from the [place] facility where the Encounter took place. Date/Time Smoking Status/Tobacco Use Comment F manoj September 28, 2021 09:30 AM VA-TOBACCO NEVER USED [facility] Nov 10, 2020 08:30 AM VA-TOBACCO NEVER USED [facility] Radiology Reports: +/- 30 days of [...] 10:44 AM ANKLE LEFT 3 VIEWS : [facility] [id number] [id number] F Exm Date: OCTOBER 18, 2022@10:44 Req Phys: DOMINIC TREJO Loc: [facility] (Req'g Loc) Img Loc: MAIN X-RAY Service: Unknown (Case [id number] COMPLETE) ANKLE LEFT 3 VIEWS (RAD Detailed) CPT:27939 Proc Modifiers : STANDING LEFT Reason for Study: eval for OA Clinical History: [place] IS NOT under investigation for COVID-19 or is COVID-19 negative L ankle pain with walking Responsible provider name and phone number to notify for critical findings if other than user placing the order and pager listed below: User placing orders pager: [phone] LAST CREATININE 0.6 (06/29/22) Report Status: Verified Date Reported: OCTOBER 18, 2022 Date Verified: OCTOBER 18, 2022 Customs Brokerage Manager E-Sig:/ES/KELSEY BISWAS DO Report: EXAMINATION: ANKLE LEFT [...] Primary Interpreting Staff: KELSEY BISWAS DO, RADIOLOGIST (Customs Brokerage Manager) /DDS KELSEY BISWAS [facility] Encounter Notes: All associated encounter notes This section contains the clinical notes associated to the Encounter. Date/Time Encounter Note(s) Provider Source October 18, 2022 11:23 AM ORTHOTICS PROSTHET ICS CONSULT: LOCAL TITLE: PROSTHETICS CONSULT STANDARD TITLE: ORTHOTICS PROSTHETICS CONSULT DATE OF NOTE: OCTOBER 18, 2022@11:23 ENTRY DATE: OCTOBER 18, 2022@11:24:08 AUTHOR: KIRILL BUSTAMANTE EXP COSIGNER: URGENCY: STATUS: COMPLETED Provisional Diagnosis: Pain in unspecified ankle and joints of unspecified foot(ICD-10-CM M25.579) Reason For Request: Brace Outpatient b/l elastic/neoprene ankle brace Deliver to [place] - will sweet pickled fruit maker Appointment: Potato Chip Processing Supervisor measured and will order B/L [employer]auerfe[employer] mallotrain ankle sleeves [facility] EDUCATION: Education was provided to patient during this encounter. Patient indicated readiness to learn about educational information re: the following topics: Ankle sleeves. Additional education training is not indicated. Patient indicates readiness to learn, verbalizes understanding, agreement and satisfaction with the treatment plan. Denies further questions. If necessary, patient to be rescheduled upon receipt or completed fabrication of ordered item(s)/device(s). Please create a P.O. and order from [employer] Ship to [facility] QTY: 1 Part number: [id number] Right, Size 3, L2999 QTY: 1 Part number: [id number] Left, Size 3, L2999 /es/ KIRILL BUSTAMANTE Signed: 10/18/2022 11:28 KIRILL BUSTAMANTE [facility]
--- OUTSIDE RECORDS SUMMARY | 2023-06-24 08:40 | XMS_ITS | Encounter Summary ---
Author Name [employer] [facility] [employer] Organization [employer] [facility] [employer] Address [address] [place] [address] Insurance Providers: All historical and current Section Date Range: From patient's date of to the date document was created. This section includes the names of all active insurance providers for the patient. Insurance Provider Type of Coverage Plan Name Start of Policy Coverage End of Policy Coverage Group Number Member ID Insurance Provider's Telephone Number Policy Talavera's Name Patient's Relationship to Policy Talavera [facility] ([id number]) PRESCRIPT ION GEHA May 30, 2005 [id number] SONIA MOBLEY PATIENT GEHA (SECONDARY ) PREFERRED PROVIDER ORGANIZAT ION (PPO) GEHA A&B PRIMA RY May 30, 2005 [id number] SONIA MOBLEY PATIENT GEHA (SECONDARY ) PREFERRED PROVIDER ORGANIZAT ION (PPO) GEHA A/B PRIMA RY May 30, 2005 [id number] [phone] SONIA MOBLEY PATIENT [facility] PREFERRED PROVIDER ORGANIZAT ION (PPO) DO NOT USE May 30, 2005 [id number] TONI BRITO PATIENT MEDICARE (WNR) MEDICARE (M) PART B Jan 29, 2000 PART B [id number] [phone] SONIA MOBLEY PATIENT MEDICARE (WNR) MEDICARE (M) PART A Jan 29, 2000 PART A [id number] [phone] SONIA MOBLEY PATIENT Selected Encounter This section includes the information on record at [place] for the Encounter. Date/Time Encounter Type Encounter Description Reason Provider Source October 15, 2022 12:23 PM Outpatient Encounter TELEPHONE TRIAGE DIPIKA RODRIGUSE IHMay Encounter Template Text not used by [place] Plan of Treatment: Future Appointments (+ 6 months) and Future Tests (+/- 45 days) The Plan of Treatment section includes future care activities for the patient from all [place] [facility] This section includes future appointments and future orders which are active, pending or scheduled. Future Appointments This section includes appointments that were scheduled to occur 6 months from the date of the Encounter, up to a maximum of 20 appointments. The data comes from all [facility] facilities. Appointment Date/Time Appointment Type Appointme nt Facility Name October 18, 2022 10:00 AM [facility] October 18, 2022 10:45 AM [facility] October 18, 2022 11:15 AM [facility] Nov 02, 2022 10:45 AM [facility] Jan 07, 2023 10:00 AM [facility] Feb 10, 2023 08:30 AM [facility] Mar 15, 2023 10:00 AM [facility] Mar 15, 2023 11:00 AM [facility]BULATORY - MEDICINE [facility] Social History: Smoking Status (Most current) and Tobacco Use (All prior to encounter date) This section includes the most current, and the historical, smoking and tobacco- related health factors from the [place] facility where the Encounter took place. Current Smoking Status This section includes the most current smoking, or tobacco-related health factor, from the [place] facility where the Encounter took place. Date/Time Current Smoking Status Comment Robyn baez September 28, 2021 09:30 AM [place]-TOBACCO NEVER USED [facility] Tobacco Use History This section includes a history of the smoking, or tobacco-related health factors, that were collected on or before the date of the Encounter. The data comes from the [place] facility where the Encounter took place. Date/Time Smoking Status/Tobacco Use Comment Farooq aranda Nov 10, 2020 08:30 AM [place]-TO[place] NEVER USED [facility] Radiology Reports: +/- 30 days of [...] the Encounter. The data comes from all [place] treatment facilities. Date/Time Radiology Report Provider Source October 18, 2022 10:44 AM ANKLE LEFT 3 VIEWS : ALICE MOBLEY [id number] -[id number] F Exm Date: OCTOBER 18, 2022@10:44 Req Phys: DOMINIC TREJO Loc: [facility] ZACK SCHREIBER (Req'g Loc) Img Loc: MAIN X-RAY Service: Unknown (Case [id number] COMPLETE) ANKLE LEFT 3 VIEWS (RAD Detailed) CPT:58491 Proc Modifiers : STANDING LEFT Reason for Study: eval for OA Clinical History: IS NOT under investigation for COVID-19 or is COVID-19 negative L ankle pain with walking Responsible provider name and phone number to notify for critical findings if other than user placing the order and pager listed below: User placing orders pager: [phone] LAST CREATININE 0.6 (06/29/22) Report Status: Verified Date Reported: OCTOBER 18, 2022 Date Verified: OCTOBER 18, 2022 Professor Of Public Administration E-Sig:/ES/KELSEY BISWAS DO Report: EXAMINATION: ANKLE LEFT [...] Primary Interpreting Staff: KELSEY BISWAS DO, RADIOLOGIST (Professor Of Public Administration) /LUZ ELENAS KELSEY BISWAS [facility] Encounter Notes: All associated encounter notes This section contains the clinical notes associated to the Encounter. Date/Time Encounter Note(s) Provider Source October 15, 2022 12:24 PM RN PROGRESS NOTE: LOCAL TITLE: CCC: CLINICAL TRIAGE STANDARD TITLE: RN PROGRESS NOTE DATE OF NOTE: OCTOBER 15, 2022@12:24:01 ENTRY DATE: OCTOBER 15, 2022@12:24:01 AUTHOR: DIPIKA RODRIGUES EXP COSIGNER: URGENCY: STATUS: COMPLETED Patient Demographics Patient Name: ALICE MOBLEY Patient Primary Address: [address] [place] [address] [address] [place] [address] Patient Primary Phone: [phone] Patient : 1935 Patient Age: 87 SSN: [id number] Caller/Recipient Relation to Patient: Self Nurse Summary Nurse Summary: PATIENT CONCERN/DURATION/ONSET: c/o pain in right ankle and left ankle. Left ankle pain for 3-4 months and right ankle pain longer. Only hurts with walking. Vet spoke with PT in her building/usp center and she recommended an RN to help her put compression stockings. She was told states she is not able get help from a nurse from her building because they do not have a nurse in her section of the building. Stockings are tight and it?s hard for her to put it on; it is hard for her to bend her leg. Left ankle was swollen a couple days ago but it looks normal today. Denies redness. Denies fevers/chills. Rates ankle pain 3-4/10. If she walks, if it catches, she is afraid she might fall. It has happened a couple times. A couple times, she felt a twinge. Also requests to see provider regarding her SVT/heart rate problem. States medication she is on has been good and she has not experienced any symptom since May. Checks her heart rates and it has been in the normal range. WHAT HAS PATIENT TRIED TO TREAT THE SYMPTOMS: Uses compression stockings. HISTORY/PREVIOUS TREATMENT: Right ankle x-rayed months ago. WHAT IS PATIENT GOAL FOR THE CALL: Appointment get left ankle x-ray. Was Care Now considered (TELE or VVC): No. COT[employer]ER DISPOSITION: Recommended triage is within 7 days secondary to ankle pain. Vet agreeable and scheduled with provider 09/28/22 at 1000. agrees with plan of care and verbalizes via teach-back s/s to seek ED/UC (disclaimer read and explained) evaluation as well as home care advice offered (e.g. if symptoms worsen or new symptoms present should seek medical care) and as outlined in education section below. Best contact for is [phone] (Verified). This note was created by a [address] asphalt dauber. Please do not alert this nurse by adding as a signer for future communications. Alerts are not monitored by this user, if needed please email . Triage Summary Chief Complaint: Ankle Pain System WHEN: Within 2 Weeks Nurse's Recommendation / WHEN: Within 2 Weeks System WHERE: Clinic Nurse's Recommendation / WHERE: [facility] Covid Screening Patient confirms the following symptoms Screen is negative Referred patient for in-person appt. Transferred patient to Sched & Admin-Apt Clinical Contact Center Codes Clinic/Location: [address] PHONE CCC RN TXCC Triage Complete Triage Note: Phone Triage 15 Oct 2022 17:09:18 +0000 [facility] Demographics 87 y/o Female Results CC: Ankle Pain Software suggested: Within 2 Weeks Software suggested follow-up location: Clinic, consider [facility] care Values and Measures Duration of CC: 4 Months Positive Responses HPI: ankle pain, duration longer than 1 week PMH: osteoarthritis VS: temperature not taken Negative Responses Denies: HPI: ankle injury, past 2 days Denies: HPI: ankle pain, moderate to severe Denies: HPI: ankle pain, originating in lower back Denies: HPI: ankle pain, severe Denies: HPI: ankle pain, worsening Denies: HPI: ankle swelling Denies: HPI: difficulty walking, due to ankle pain Denies: HPI: leg swelling, localized above the painful ankle Denies: HPI: lymph node pain, lymph node swelling, inguinal Denies: HPI: numbness, ankle or foot, new Denies: HPI: pain, radiation down back of leg Denies: HPI: red streaks, from a spot on the ankle Denies: HPI: skin erythema, ankle Denies: HPI: skin lump, painful, over the ankle Denies: HPI: skin swelling, ankle, worsening Denies: HPI: skin tenderness, ankle, worsening Denies: PMH: gout Denies: PMH: peripheral vascular disease, legs Denies: PMH: rheumatoid arthritis Denies: PSH: ankle surgery, within the past week Education Log Home care for ankle pain includes: Apply a cold/warm compress Rest the ankle: Use a walker. Use crutches. Elevate your ankle to minimize swelling. Notify your provider for ankle pain and any of the following: Ankle pain that does not improve over three days Ankle skin redness and pain Foot numbness Foot weakness Inability to bear weight Inability to move the ankle Fever over 101 degrees F (38.3 C) Tenderness over the bones of the ankle Worsening ankle pain Worsening ankle redness Worsening ankle tenderness ?? PTS Physicians. /baltazar/ DIPIKA RODRIGUES RN, BSN REGISTERED NURSE Signed: 10/15/2022 12:24 DIPIKA RODRIGUES [facility]
--- OUTSIDE RECORDS SUMMARY | 2023-06-24 08:40 | XMS_ITS | Encounter Summary ---
Author Name [facility] Organization [facility] Address [address] [place] [address] Insurance Providers: All historical and current Section Date Range: From patient's date of to the date document was created. This section includes the names of all active insurance providers for the patient. Insurance Provider Type of Coverage Plan Name Start of Policy Coverage End of Policy Coverage Group Number Member ID Insurance Provider's Telephone Number Policy Talavera's Name Patient's Relationship to Policy Talavera [facility] ([id number]) PRESCRIPT ION GEHA May 30, 2005 [id number] SONIA MOBLEY PATIENT GEHA (SECONDARY ) PREFERRED PROVIDER ORGANIZAT ION (PPO) GEHA A&B PRIMA RY May 30, 2005 [id number] SONIA MOBLEY PATIENT GEHA (SECONDARY ) PREFERRED PROVIDER ORGANIZAT ION (PPO) GEHA A/B PRIMA RY May 30, 2005 [id number] SONIA MOBLEY PATIENT [facility] PREFERRED PROVIDER ORGANIZAT ION (PPO) DO NOT USE May 30, 2005 [id number] TONI BRITO PATIENT MEDICARE (WNR) MEDICARE (M) PART A Jan 29, 2000 PART A [id number] [phone] SONIA MOBLEY PATIENT MEDICARE (WNR) MEDICARE (M) PART B Jan 29, 2000 PART B [id number] [phone] SONIA MOBLEY PATIENT Selected Encounter This section includes the information on record at [place] for the Encounter. Date/Time Encounter Type Encounter Description Reason Provider Source October 18, 2022 10:00 AM OFFICE O/P EST LOW 20-29 MIN COMP [facility] ICD-10-CM M25.572 Pain in left ankle and joints of left foot DOMINIC TREJO [facility] Encounter Template Text not used by [place] Assessments - Encounter Diagnoses This section includes the primary and secondary diagnoses documented for the Encounter. Date/Time Primary/Secondary Diagnosis Diagnosis Name Provider Source October 18, 2022 10:42 AM PRIMARY Pain in left ankle and joints of left foot DOMINIC TREJO [facility] October 18, 2022 10:42 AM SECONDARY Diarrhea, unspecified DOMINIC TREJO [facility] Plan of Treatment: Future Appointments (+ 6 months) and Future Tests (+/- 45 days) The Plan of Treatment section includes future care activities for the patient from all [place] [facility] This section includes future appointments and future orders which are active, pending or scheduled. Future Appointments This section includes appointments that were scheduled to occur 6 months from the date of the Encounter, up to a maximum of 20 appointments. The data comes from all [place] treatment facilities. Appointment Date/Time Appointment Type Appointme nt Facility Name Nov 02, 2022 10:45 AM AMBULATORY - MEDICINE [facility] Jan 07, 2023 10:00 AM AMBULATORY - MEDICINE [facility] Feb 10, 2023 08:30 AM AMBULATORY - MEDICINE [facility] Mar 15, 2023 10:00 AM AMBULATORY - NONE [facility] Mar 15, 2023 11:00 AM AMBULATORY - MEDICINE [facility] Vital Signs: All taken on the encounter date This section contains inpatient and outpatient Vital Signs collected on the date of the Encounter. Date/Time Temperature Pulse Blood Pressure Respiratory Rate SP02 Pain Height Weight Body Mass Index Source October 18, 2022 10:17 AM 122/73 mm[Hg] [facility] October 18, 2022 10:05 AM 77 /min 145/83 mm[Hg] 16 /min 97 % [address] [facility] Social History: Smoking Status (Most current) and Tobacco Use (All prior to encounter date) This section includes the most current, and the historical, smoking and tobacco- related health factors from the [place] facility where the Encounter took place. Current Smoking Status This section includes the most current smoking, or tobacco-related health factor, from the [place] facility where the Encounter took place. Date/Time Current Smoking Status Comment Robyn baez October 18, 2022 10:00 AM [place] NEVER US[place] [facility] Tobacco Use History This section includes a history of the smoking, or tobacco-related health factors, that were collected on or before the date of the Encounter. The data comes from the [place] facility where the Encounter took place. Date/Time Smoking Status/Tobacco Use Comment F acnelia September 28, 2021 09:30 AM [place] NEVER US[place] [facility] Nov 10, 2020 08:30 AM [place]-TO[place]ACCO NEVER US[place] [facility] Radiology Reports: +/- 30 days of [...] the Encounter. The data comes from all [place] treatment facilities. Date/Time Radiology Report Provider Source October 18, 2022 10:44 AM ANKLE LEFT 3 VIEWS : ALICE MOBLEY [facility] [id number] -[id number] F Exm Date: OCTOBER 18, 2022@10:44 Req Phys: DOMINIC TREJO Pat Loc: [facility] (Req'g Loc) Img Loc: MAIN X-RAY Service: Unknown (Case [id number] COMPLETE) ANKLE LEFT 3 VIEWS (RAD Detailed) CPT:36467 Proc Modifiers : STANDING LEFT Reason for Study: eval for OA Clinical History: IS NOT under investigation for COVID-19 or is COVID-19 negative L ankle pain with walking Responsible provider name and phone number to notify for critical findings if other than user placing the order and pager listed below: User placing orders pager: [phone] LAST CREATININE 0.6 (06/29/22) Report Status: Verified Date Reported: OCTOBER 18, 2022 Date Verified: OCTOBER 18, 2022 Supervisor Graphite E-Sig:/ES/KELSEY BISWAS DO Report: EXAMINATION: ANKLE LEFT [...] Primary Interpreting Staff: KELSEY BISWAS DO, RADIOLOGIST (Supervisor Graphite) /DDS KELSEY BISWAS [facility] Encounter Notes: All associated encounter notes This section contains the clinical notes associated to the Encounter. Date/Time Encounter Note(s) Provider Source October 18, 2022 10:32 AM [facility]: LOCAL TITLE: [facility]OMEN'S CLINIC NOTE STANDARD TITLE: [facility] OUTPATIENT E & M NOTE DATE OF NOTE: OCTOBER 18, 2022@10:32 ENTRY DATE: OCTOBER 18, 2022@10:32:20 AUTHOR: WEI TREJO EXP COSIGNER: URGENCY: STATUS: COMPLETED Nurse's Notes Reviewed. Chief Complaint: L ankle pain S: The patient is a 87 yo FEMALE who comes in today for L ankle pain. Primarily with walking. Wonders about having an xray of it and whether or not an elastic brace would hlep for more stability. Raisin bran cereal in the morning, also a higher fiber cereal from [employer]. Will have urgency with diarrhea. Is okay if doesn't eat the cereal. Wonders if it's the cereal or a medication. Medication and Allergies are reviewed and updated. [...] - 2011 4. Polymyalgia rheumatica 5. Prediabetes ([facility] [id number]) 6. 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 - pT1c, N0, M0-Stage 1A - s/p lumpectomy 06/2014, radiation therapy - On Anastrazole since 07/2014 7. History of cholecystectomy 8. History of total knee arthroplasty - R knee 9. Peripheral vascular disease - s/p stenting Femoral artery, 2008 10. Sleep Apnea ([facility] [id number]) 11. Benign essential hypertension 12. Thoracic aortic aneurysm without rupture Review of Systems: 10 point ROS including constitutional, eyes, respiratory, cardiovascular, pulmonary, gastroenterology, genitourinary, integumentary, musculoskeletal, pschiatric were all negative except for pertinent positive noted in my HPI. Physical Exams: Vitals: BP: 122/73 (10/18/2022 10:17) P: 77 (10/18/2022 10:05) R: 16 (10/18/2022 10:05) T: 97.5 F [36.4 C] (08/09/2022 09:27) WT: 163.3 lb [74.07 kg] (10/18/2022 10:05) O2 Sat: 97% (10/18/2022 10:05) BMI: 30.9 BMI > 25 Assessment General: Pleasant FEMALE, in NAD MSK: L ankle w/out effusion, non-tender to palpation Assessment/Plan: The patient is a 87 yo FEMALE who comes in for follow up visit today. #. L ankle pain -Xray to eval for OA -b/l neoprene braces from prosthetics to help with stability -Advised to draw ABCs with toe a couple times/day to help increase stability #. Diarrhea. Likely due to high fiber meal. -Advised to start with smaller amount of cereal and then progress to larger amount to help avoid diarrhea. -Doubt medication related as only occurs with that one meal. F/u PRN Dominic Sales MD Staff Physician Section of Women's Health // Dominic Sales MD STAFF PHYSICIAN Signed: 10/18/2022 10:42 DOMINIC TREJO [facility] October 18, 2022 10:12 AM [facility]: LOCAL TITLE: WOMEN'S CLINIC NURSING NOTE STANDARD TITLE: [facility] N[facility]SING OUTPATIENT NOTE DATE OF NOTE: OCTOBER 18, 2022@10:12 ENTRY DATE: OCTOBER 18, 2022@10:12:11 AUTHOR: MALCOLM VALLADARES COSIGNER: URGENCY: STATUS: COMPLETED [facility] NURSING NOTE Has ADDENDA TYPE OF VISIT: Appointment Check In Type of appointment: In-person appointment REASON FOR VISIT: ankle (left) concern ALLERGIES: Patient has answered NKA VITAL SIGNS: Blood Pressure: 145/83 (10/18/2022 10:05) Pulse: 77 (10/18/2022 10:05) Respiration: 16 (10/18/2022 10:05) Temperature: 97.5 F [36.4 C] (08/09/2022 09:27) Weight: 163.3 lb [74.07 kg] (10/18/2022 10:05) Height: 61 in [154.9 cm] (10/18/2022 10:05) BMI: 30.9 O2 Sat: 97% (10/18/2022 10:05) Pain: 0 (10/18/2022 10:05) PAIN SCREEN: Patient is not having significant pain that they wish to discuss with their provider today. MEDICATION Over the Counter/Herbal Medications: The patient denies taking any outside medications or herbals. Tobacco Use Screening: The patient has never used tobacco. Alcohol Use Screen (AUDIT-C): Alcohol Screen: SCREEN FOR ALCOHOL (AUDIT-C) An alcohol screening test (AUDIT-C) was negative (score=2). 1. How often did you have a drink containing alcohol in the past year? Two to four times a month 2. How many drinks containing alcohol did you have on a typical day when you were drinking in the past year? One or two drinks 3. How often did you have 4 or more drinks on one occasion in the past year? Never Nursing Annual Screening: Fall History Screen During the past 12 months, have you had any falls? Patient does not report any falls in the past 12 months. MEDICATIONS: Patient is on one of the following medication classes: Antihypertensives, Antidepressants, Antipsychotics, Diuretics, or Controlled substance medication used for pain. FALL RISK ADVICE: Fall Risk Advice provided. Handout entitled Fall Prevention At Home reviewed and given to patient and/or significant other. Script Talk Screen Are you able to read your prescription bottles with your glasses, magnifiers or other aids? Yes or patient not taking any prescriptions. Skin Screen Patient reports any current pressure ulcers, a history of pressure ulcers, or a wound from a medical instructor or Patient is bed-confined or a wheelchair-user or Patient requires assistance to transfer/change position No, Skin Screen is Negative Home Abuse/Violence Screen Is your home free of abuse and violence? Yes MOVE! Program Screen Body Mass Index (BMI)= 30.9 [place]: Collection DT Specimen Test Name Result Units Ref Range 03/16/2022 09:20 BLOOD !! HEMOGLOBIN A1C 5.8 % 4.0 - 6.0 !! Indicates COMMENTS AVAILABLE...Refer to Interim Lab Report. [place] Hgb A1C: No data available [place] Hgb A1C: No data available Point of Care Hgb A1C: POC HGB A1C____ Outpatient Nutrition Screen Body Mass Index (BMI)= 30.9 [place]: Collection DT Specimen Test Name Result Units Ref Range 03/16/2022 09:20 BLOOD !! HEMOGLOBIN A1C 5.8 % 4.0 - 6.0 !! Indicates COMMENTS AVAILABLE...Refer to Interim Lab Report. [place] Hgb A1C: No data available [place] Hgb A1C: No data available Point of Care Hgb A1C: POC HGB A1C____ Is patient's BMI less than 18.5? No Does patient have swallowing, coughing, or chewing problems affecting oral intake? No Has patient experienced unplanned weight loss or gain greater than 10 pounds over the last 2 months? No Is patient's Hgb A1C (Glycosylated Hemoglobin) greater than 9.5? No Is patient receiving Total Parenteral Nutrition (TPN) or Tube Feedings? No Patient Health Education Screen BARRIERS/SPECIAL NEEDS: Hearing limitations PREFERRED STYLE OF LEARNING: No preference stated Client Assistive Service (LETICIA) Screen Does the patient require assistance with outpatient visit? No /baltazar/ MALCOLM VALLADARES LPN LICENSED PRACTICAL NURSE Signed: 10/18/2022 10:15 10/18/2022 ADDENDUM STATUS: COMPLETED recheck bp 122/73 patient states she took her bp medication today, is asymptomatic and does check her bp at home. /baltazar/ MALCOLM VALLADARES LPN LICENSED PRACTICAL NURSE Signed: 10/18/2022 10:17 MALCOLM VALLADARES [facility]
--- OUTSIDE RECORDS SUMMARY | 2023-06-24 08:40 | XMS_ITS | Encounter Summary ---
Author Name [facility] Organization Department of [facility] Address [address] [place] [address] Insurance Providers: All historical and current Section Date Range: From patient's date of to the date document was created. This section includes the names of all active insurance providers for the patient. Insurance Provider Type of Coverage Plan Name Start of Policy Coverage End of Policy Coverage Group Number Member ID Insurance Provider's Telephone Number Policy Talavera's Name Patient's Relationship to Policy Talavera [facility] ([id number]) PRESCRIPT ION GEHA May [birth year] 2005 [id number] SONIA MOBLEY PATIENT GEHA (SECONDARY ) PREFERRED PROVIDER ORGANIZAT ION (PPO) GEHA A/B PRIMA RY May 30, 2005 [id number] SONIA MOBLEY PATIENT GEHA (SECONDARY ) PREFERRED PROVIDER ORGANIZAT ION (PPO) GEHA A&B PRIMA RY May 30, 2005 [id number] [phone] SONIA MOBLEY PATIENT [facility] PREFERRED PROVIDER ORGANIZAT ION (PPO) DO NOT USE May 30, 2005 [id number] TONI BRITO PATIENT MEDICARE (WNR) MEDICARE (M) PART B Jan 29, 2000 PART B [id number] [phone] SONIA MOBLEY PATIENT MEDICARE (WNR) MEDICARE (M) PART A Jan 29, 2000 PART A [id number] [phone] SONIA MOBLEY PATIENT Selected Encounter This section includes the information on record at [place] for the Encounter. Date/Time Encounter Type Encounter Description Reason Provider Source Nov 02, 2022 10:45 AM OFF/OP EST SEPTEMBER X REQ PHY/QHP COMP [facility] ICD-10-CM M25.572 Pain in left ankle and joints of left foot MARY VANEGAS E Encounter Template Text not used by [place] Assessments - Encounter Diagnoses This section includes the primary and secondary diagnoses documented for the Encounter. Date/Time Primary/Secondary Diagnosis Diagnosis Name Provider Source Dec 03, 2022 01:08 PM PRIMARY Pain in left ankle and joints of left foot MARY VANEGAS [facility] Dec 03, 2022 01:08 PM SECONDARY Personal history of urinary (tract) infections MARY VANEGAS [facility] Plan of Treatment: Future Appointments (+ 6 months) and Future Tests (+/- 45 days) The Plan of Treatment section includes future care activities for the patient from all [place] [facility]. This section includes future appointments and future orders which are active, pending or scheduled. Future Appointments This section includes appointments that were scheduled to occur 6 months from the date of the Encounter, up to a maximum of 20 appointments. The data comes from all [place] treatment facilities. Appointment Date/Time Appointment Type Appointme nt Facility Name Jan 07, 2023 10:00 AM AMBULATORY - MEDICINE [facility] Feb 10, 2023 08:30 AM AMBULATORY - MEDICINE [facility] Mar 15, 2023 10:00 AM AMBULATORY - NONE [facility] Mar 15, 2023 11:00 AM AMBULATORY - MEDICINE [facility] May 03, 2023 08:30 AM AMBULATORY - REHAB MEDICIN E [facility] May 03, 2023 09:00 AM AMBULATORY - SURGERY [facility] Social History: Smoking Status (Most current) and Tobacco Use (All prior to encounter date) This section includes the most current, and the historical, smoking and tobacco- related health factors from the [place] facility where the Encounter took place. Current Smoking Status This section includes the most current smoking, or tobacco-related health factor, from the [place] facility where the Encounter took place. Date/Time Current Smoking Status Comment Facil ity October 18, 2022 10:00 AM VA-TOBACCO NEVER USED [facility] Tobacco Use History This section includes a history of the smoking, or tobacco-related health factors, that were collected on or before the date of the Encounter. The data comes from the [place] facility where the Encounter took place. Date/Time Smoking Status/Tobacco Use Comment F acility September 28, 2021 09:30 AM VA-TOBACCO NEVER USED [facility] Nov 10, 2020 08:30 AM VA-TOBACCO NEVER USED [facility] Radiology Reports: +/- 30 [...] the Encounter. The data comes from all [place] treatment facilities. Date/Time Radiology Report Provider Source October 18, 2022 10:44 AM ANKLE LEFT 3 VIEWS : ALICE MOBLEY NASREEN [id number] F Exm Date: OCTOBER 18, 2022@10:44 Req Phys: DOMINIC TREJO Loc: KAYY SCHREIBER (Req'g Loc) Img Loc: MAIN X-RAY Service: Unknown (Case [id number] COMPLETE) ANKLE LEFT 3 VIEWS (RAD Detailed) CPT:79357 Proc Modifiers : STANDING LEFT Reason for Study: eval for OA Clinical History: IS NOT under investigation for COVID-19 or is COVID-19 negative L ankle pain with walking Responsible provider name and phone number to notify for critical findings if other than user placing the order and pager listed below: User placing orders pager: [phone] LAST CREATININE 0.6 (06/29/22) Report Status: Verified Date Reported: OCTOBER 18, 2022 Date Verified: OCTOBER 18, 2022 Automotive Parts Salesperson E-Sig:/ES/KELSEY BISWAS DO Report: EXAMINATION: ANKLE LEFT [...] Primary Interpreting Staff: KELSEY BISWAS DO, RADIOLOGIST (Automotive Parts Salesperson) /DDS KELSEY BISWAS [facility] Encounter Notes: All associated encounter notes This section contains the clinical notes associated to the Encounter. Date/Time Encounter Note(s) Provider Source Nov 02, 2022 11:28 AM [facility] NURS ING OUTPATIENT NOTE: LOCAL TITLE: [facility] NURSING NOTE STANDARD TITLE: [facility] NURSING OUTPATIENT NOTE DATE OF NOTE: NOV 02, 2022@11:28 ENTRY DATE: NOV 02, 2022@11:28:16 AUTHOR: MARY VANEGAS EXP COSIGNER: URGENCY: STATUS: COMPLETED TYPE OF VISIT: Walkin REASON FOR VISIT: To review ankle xray results ALLERGIES: FACILITY ALLERGY/ADR -------- No Remote Allergy/ADR Data available for this patient [facility] No Known Allergies ASSESSMENT/PLAN: Patient comes into clinic wanting to review her left ankle xray results. Review the results and she asked about ankle brace that she is supposed to wear. Had her demonstrate putting it on and it was difficult for her to get her leg crossed and the brace was very tight and hard to get over her foot. Even personal lines underwriter had trouble with it. She states she has the same problem with her rolando hose. Information Technology Consultant offered to place home care consult for MID LEVEL NET DEVELOPER to assist with dressing, helping with brace, showering etc. She declined and states she isn't ready for that yet. She has friends in her building that she can ask. She also asked about a recent UTI she had and it wondering if she could get a prescription for cephalexin to have just in case. Asked how often she is gettting UTI's and she states less than 1/month. Offered to discuss with PCP, and possibly URO/TOLL BOOTH OPERATOR consult is needed and she declined. She states she has urine incontinence and wears a pad. Encouraged her to change the pad frequently and placed an order for more pad to get from [place]. Gave her writers direct number if she has any follow up questions or concerns. /baltazar/ MARY VANEGAS RN REGISTERED NURSE Signed: 11/02/2022 11:35 MARY VANEGAS [facility]
--- OUTSIDE RECORDS SUMMARY | 2023-06-24 08:41 | XMS_ITS | Encounter Summary ---
Author Name [facility] Organization [facility] Address [address] [place] [address] Insurance Providers: All historical and current Section Date Range: From patient's date of to the date document was created. This section includes the names of all active insurance providers for the patient. Insurance Provider Type of Coverage Plan Name Start of Policy Coverage End of Policy Coverage Group Number Member ID Insurance Provider's Telephone Number Policy Talavera's Name Patient's Relationship to Policy Talavera [facility] ([id number]) PRESCRIPT ION GEHA May 30, 2005 [id number] SONIA MOBLEY PATIENT GEHA (SECONDARY ) PREFERRED PROVIDER ORGANIZAT ION (PPO) GEHA A&B PRIMA RY May 30, 2005 [id number] [phone] SONIA MOBLEY PATIENT GEHA (SECONDARY ) PREFERRED PROVIDER ORGANIZAT ION (PPO) GEHA A/B PRIMA RY May 30, 2005 [id number] [phone] SONIA MOBLEY PATIENT [facility] PREFERRED PROVIDER ORGANIZAT ION (PPO) DO NOT USE May 30, 2005 [id number] TONI BRITO PATIENT MEDICARE (WNR) MEDICARE (M) PART B Jan 29, 2000 PART B [id number] [phone] SONIA MOBLEY PATIENT MEDICARE (WNR) MEDICARE (M) PART A Jan 29, 2000 PART A [id number] [phone] SONIA MOBLEY PATIENT Selected Encounter This section includes the information on record at [place] for the Encounter. Date/Time Encounter Type Encounter Description Reason Pro vider Source Dec 17, 2022 10:31 AM Outpatient Encounter TELEPHONE TRIAGE IHE Encounter Template Text not used by [place] Plan of Treatment: Future Appointments (+ 6 months) and Future Tests (+/- 45 days) The Plan of Treatment section includes future care activities for the patient from all [place] [facility]. This section includes future appointments and future orders which are active, pending or scheduled. Future Appointments This section includes appointments that were scheduled to occur 6 months from the date of the Encounter, up to a maximum of 20 appointments. The data comes from all [facility]. Appointment Date/Time Appointment Type Appointme nt Facility Name Jan 07, 2023 10:00 AM AMBULATORY - MEDICINE [facility] Feb 10, 2023 08:30 AM AMBULATORY - MEDICINE [facility] Mar 15, 2023 10:00 AM AMBULATORY - NONE [facility] Mar 15, 2023 11:00 AM AMBULATORY - MEDICINE [facility] May 03, 2023 08:30 AM AMBULATORY - REHAB MEDICIN E [facility] May 03, 2023 09:00 AM AMBULATORY - SURGERY [facility] May 09, 2023 03:00 PM AMBULATORY - REHAB MEDICIN E [facility] May 18, 2023 09:15 AM AMBULATORY - SURGERY [facility] May 24, 2023 05:00 PM AMBULATORY - REHAB MEDICIN E [facility] May 31, 2023 01:00 PM AMBULATORY - SURGERY [facility] Social History: Smoking Status (Most current) and Tobacco Use (All prior to encounter date) This section includes the most current, and the historical, smoking and tobacco- related health factors from the [place] facility where the Encounter took place. Current Smoking Status This section includes the most current smoking, or tobacco-related health factor, from the [place] facility where the Encounter took place. Date/Time Current Smoking Status Comment Robyn baez October 18, 2022 10:00 AM [place]-TOBACCO NEVER USED [facility] Tobacco Use History This section includes a history of the smoking, or tobacco-related health factors, that were collected on or before the date of the Encounter. The data comes from the [place] facility where the Encounter took place. Date/Time Smoking Status/Tobacco Use Comment F acnelia September 28, 2021 09:30 AM [place]-TOBACCO NEVER USED [facility] Nov 10, 2020 08:30 AM VA-TOBACCO NEVER USED [facility] Encounter Notes: All associated encounter notes This section contains the clinical notes associated to the Encounter. Date/Time Encounter Note(s) Provider Source Dec 17, 2022 10:31 AM REPORT OF CONTACT: LOCAL TITLE: PATIENT CONTACT NOTE STANDARD TITLE: REPORT OF CONTACT DATE OF NOTE: DEC 17, 2022@10:31 ENTRY DATE: DEC 17, 2022@10:32:35 AUTHOR: YOVANY LUCAS EXP COSIGNER: URGENCY: STATUS: COMPLETED PATIENT CONTACT NOTE Has [facility] Phone number verified as correct. [phone] called requesting that the following Rx be sent to the [facility] in [place], [place]: NITROFURANTOIN CAP,SA 100MG. The telephone number for [facility] is [phone]. left her medication at home and she is willing to pay for it. can be reached at the number above. /baltazar/ YOVANY LUCAS [employer]AT[employer] ENGINEER Signed: 12/17/2022 10:41 Receipt Acknowledged By: 12/17/2022 15:12 /baltazar/ Batsheva Garcia MD Staff Physician for DOMINIC ELY 12/17/2022 13:07 /es/ MICKI JAIN REGISTERED NURSE 12/17/2022 ADDENDUM STATUS: COMPLETED PCP: please advise, ok to call in script to outside pharmacy? Please advise on directions/quantity /baltazar/ MICKI JAIN REGISTERED NURSE Signed: 12/17/2022 11:31 Receipt Acknowledged By: 12/17/2022 16:05 /baltazar/ Batsheva Garcia MD Staff Physician for DOMINIC ELY 12/17/2022 ADDENDUM STATUS: COMPLETED Coverage for PCP Review of chart [place] has current prescription for Nitrofurantoin cap, SA 100mg - take one capsule by mouth every day as directed to prevent urinary tract infections after swimming. Quantity: 15 Indications: after swimming She has 3 refills here Do not see recent evaluation for infection If requesting nitrofurantoin for indication noted above then can continue with PCP plan if has current infection then would need re- evaluation. Can also see if pharmacy here can overnight her medication to a temporary address /baltazar/ Batsheva Garcia MD Staff Physician Signed: 12/17/2022 15:18 Receipt Acknowledged By: 12/17/2022 15:53 /baltazar/ MARY VANEGAS RN REGISTERED NURSE for MICKI JAIN 12/17/2022 ADDENDUM STATUS: COMPLETED Called patient to discuss. She is at her sons cabin and only wants 4 pills to take after she swims. She does NOT have an active infection, but if she doesn't take after swimming her son has had to take her to the ED in town. Please approve and typewriter assembly and parts inspector will call in. /baltazar/ MARY VANEGAS RN REGISTERED NURSE Signed: 12/17/2022 15:55 Receipt Acknowledged By: 12/17/2022 16:01 /baltazar/ Batsheva Garcia MD Staff Physician for DOMINIC ELY 12/17/2022 ADDENDUM STATUS: COMPLETED Coverage for PCP Note from 10/11/22 from PCP notes trail of nitrofurantoin after swimming to prevent infection. notes to be at cabin and needs for after swimming and forgot medication. Can provide a supply as to attempt to avoid infection as planned by PCP /baltazar/ Batsheva Garcia MD Staff Physician Signed: 12/17/2022 16:04 12/17/2022 ADDENDUM STATUS: COMPLETED Called in to [facility] pharmacy as directed. Patient is aware. /baltazra/ MARY VANEGAS RN REGISTERED NURSE Signed: 12/17/2022 16:15 YOVANY LUCAS [facility]
--- OUTSIDE RECORDS SUMMARY | 2023-06-24 08:41 | XMS_ITS | Encounter Summary ---
Author Name [facility] Organization [facility] of [facility] Address [address] [place] [address] Insurance Providers: All historical and current Section Date Range: From patient's date of to the date document was created. This section includes the names of all active insurance providers for the patient. Insurance Provider Type of Coverage Plan Name Start of Policy Coverage End of Policy Coverage Group Number Member ID Insurance Provider's Telephone Number Policy Talavera's Name Patient's Relationship to Policy Talavera [facility] ([id number]) PRESCRIPT ION GEHA May 30, 2005 [id number] SONIA MOBLEY PATIENT GEHA (SECONDARY ) PREFERRED PROVIDER ORGANIZAT ION (PPO) GEHA A&B PRIMA RY May 30, 2005 [id number] SONIA MOBLEY PATIENT GEHA (SECONDARY ) PREFERRED PROVIDER ORGANIZAT ION (PPO) GEHA A/B PRIMA RY May 30, 2005 [id number] [phone] SONIA MOBLEY PATIENT [facility] PREFERRED PROVIDER ORGANIZAT ION (PPO) DO NOT USE May 30, 2005 [id number] TONI BRITO PATIENT MEDICARE (WNR) MEDICARE (M) PART B Jan 29, 2000 PART B [id number] [phone] SONIA MOBLEY PATIENT MEDICARE (WNR) MEDICARE (M) PART A Jan 29, 2000 PART A [id number] [phone] SONIA MOBLEY PATIENT Selected Encounter This section includes the information on record at [place] for the Encounter. Date/Time Encounter Type Encounter Description Reason Pro vider Source Jan 10, 2023 01:30 PM Outpatient Encounter ADMIN PAT ACTIVTIES (MASNONCT) IHE Encounter Template Text not used by [place] Plan of Treatment: Future Appointments (+ 6 months) and Future Tests (+/- 45 days) The Plan of Treatment section includes future care activities for the patient [facility] [place] [facility] This section includes future appointments and future orders which are active, pending or scheduled. Future Appointments This section includes appointments that were scheduled to occur 6 months from the date of the Encounter, up to a maximum of 20 appointments. The data comes from all [place] treatment facilities. Appointment Date/Time Appointment Type Appointme nt Facility Name Feb 10, 2023 08:30 AM AMBULATORY - MEDICINE [facility] Mar 15, 2023 10:00 AM AMBULATORY - NONE [facility] Mar 15, 2023 11:00 AM AMBULATORY - MEDICINE [facility] May 03, 2023 08:30 AM AMBULATORY - RE[facility]AB [facility]IC[facility] May 03, 2023 09:00 AM AMBULATORY - SURGERY [facility] May 09, 2023 03:00 PM AMBULATORY - REHAB MEDICIN E [facility] May 18, 2023 09:15 AM AMBULATORY - SURGERY [facility] May 24, 2023 05:00 PM AMBULATORY - REHAB MEDICIN E [facility] May 31, 2023 01:00 PM AMBULATORY - SURGERY [facility] Jun 28, 2023 10:40 AM AMBULATORY - SURGERY [facility] Social History: Smoking Status (Most current) and Tobacco Use (All prior to encounter date) This section includes the most current, and the historical, smoking and tobacco- related health factors from the [place] facility where the Encounter took place. Current Smoking Status This section includes the most current smoking, or tobacco-related health factor, from the [place] facility where the Encounter took place. Date/Time Current Smoking Status Comment Robyn baez October 18, 2022 10:00 AM [place]-TOBACCO NEVER USED [facility] Tobacco Use History This section includes a history of the smoking, or tobacco-related health factors, that were collected on or before the date of the Encounter. The data comes from the [place] facility where the Encounter took place. Date/Time Smoking Status/Tobacco Use Comment Farooq aranda September 28, 2021 09:30 AM VA-TOBACCO NEVER USED [facility] Nov 10, 2020 08:30 AM VA-TOBACCO NEVER USED [facility] Encounter Notes: All associated encounter notes This section contains the clinical notes associated to the Encounter. Date/Time Encounter Note(s) Provider Source October 12, 2022 01:30 PM NONVA NOTE: LOCAL TITLE: OPHTHALMOLOGY NONVA NOTE STANDARD TITLE: NONVA NOTE DATE OF NOTE: OCTOBER 12, 2022@13:30 ENTRY DATE: JAN 10, 2023@13:31:14 AUTHOR: MIC CORTEZ EXP COSIGNER: URGENCY: STATUS: COMPLETED This note contains attached OPTHALMOLOGY scanned document(s) received from an outside facility. Open [employer] Display to review the document(s). /baltazar/ MIC CORTEZ Diesel Instructor Signed: 01/10/2023 13:31 MIC CORTEZ [facility]
--- OUTSIDE RECORDS SUMMARY | 2023-06-24 08:41 | XMS_ITS | Encounter Summary ---
Author Name Department of [employer] [employer] Organization [facility] of [facility] [employer] Address [address] [place] [address] Insurance Providers: All historical and current Section [...] Name Patient's Relationship to Policy Talavera [facility] ([id number]) PRESCRIPT ION GEHA May 30, 2005 [id number] [phone] SONIA MOBLEY PATIENT GEHA (SECONDARY ) PREFERRED PROVIDER ORGANIZAT ION (PPO) GEHA A&B PRIMA RY May 30, 2005 [id number] SONIA MOBLEY PATIENT GEHA (SECONDARY ) PREFERRED PROVIDER ORGANIZAT ION (PPO) GEHA A/B PRIMA RY May 30, 2005 [id number] [phone] SONIA MOBLEY PATIENT [facility] PREFERRED PROVIDER ORGANIZAT ION (PPO) DO NOT USE May 30, 2005 [id number] TONI BRITO PATIENT MEDICARE (WNR) MEDICARE (M) PART B Jan 29, 2000 PART B [id number] [phone] SONIA MOBLEY PATIENT MEDICARE (WNR) MEDICARE (M) PART A Jan 29, 2000 PART A [id number] [phone] SONIA MOBLEY PATIENT Selected Encounter This section includes the information on record at ID for the Encounter. Date/Time Encounter Type Encounter Description Reason Provider Source Jan 12, 2023 01:29 PM Outpatient Encounter TELEPHONE TRIAGE MIRNA HERRON May Encounter Template Text not used by ID Plan of Treatment: Future Appointments (+ 6 months) and Future Tests (+/- 45 days) The Plan of Treatment section includes future care activities for the patient from all [facility]. This section includes future appointments and future orders which are active, pending or scheduled. Future Appointments This section includes appointments that were scheduled to occur 6 months from the date of the Encounter, up to a maximum of 20 appointments. The data comes from all [facility]. Appointment Date/Time Appointment Type Appointme nt Facility Name Feb 10, 2023 08:30 AM AMBULATORY - MEDICINE [facility] Mar 15, 2023 10:00 AM AMBULATORY - NONE [facility] Mar 15, 2023 11:00 AM AMBULATORY - MEDICINE [facility] May 03, 2023 08:30 AM AMBULATORY - REHAB MEDICIN E [facility] May 03, 2023 09:00 AM AMBULATORY - SURGERY [facility] May 09, 2023 03:00 PM AMBULATORY - REHAB MEDICIN E [facility] May 18, 2023 09:15 AM AMBULATORY - SURGERY [facility] May 24, 2023 05:00 PM AMBULATORY - REHAB MEDICIN E [facility] May 31, 2023 01:00 PM AMBULATORY - SURGERY [facility] Jun 28, 2023 10:40 AM AMBULATORY - SURGERY [facility] Social History: Smoking Status (Most current) and Tobacco Use (All prior to encounter date) This section includes the most current, and the historical, smoking and tobacco- related health factors from the [facility] where the Encounter took place. Current Smoking Status This section includes the most current smoking, or tobacco-related health factor, from the ID facility where the Encounter took place. Date/Time Current Smoking Status Comment Robyn baez October 18, 2022 10:00 AM ID-TOBACCO NEVER USED [facility] Tobacco Use History This section includes a history of the smoking, or tobacco-related health factors, that were collected on or before the date of the Encounter. The data comes from the ID facility where the Encounter took place. Date/Time Smoking Status/Tobacco Use Comment F acnelia September 28, 2021 09:30 AM ID-TOBACCO NEVER USED [facility] Nov 10, 2020 08:30 AM VA-TOBACCO NEVER USED [facility] Encounter Notes: All associated encounter notes This section contains the clinical notes associated to the Encounter. Date/Time Encounter Note(s) Provider Source Jan 12, 2023 01:29 PM RN PROGRESS NOTE: LOCAL TITLE: CCC: CLINICAL TRIAGE STANDARD TITLE: RN PROGRESS NOTE DATE OF NOTE: JAN 12, 2023@13:29:13 ENTRY DATE: JAN 12, 2023@13:29:13 AUTHOR: MIRNA HERRON COSIGNER: URGENCY: STATUS: COMPLETED CCC: CLINICAL TRIAGE Has ADDENDA Patient Demographics Patient Name: ALICE MOBLEY SSN: [id number] Patient Primary Address: [address] [place] [address] [address]
[place] [address] Patient Primary Phone: [phone] Patient : 1935 Patient Age: 87 Call Back Number: [phone] Caller/Recipient Relation to Patient: Self Triage Summary Conducted triage/discussed symptoms Pain Score: 0 (No Pain) Utilized the Triage Tool: No Chief Complaint: R sided facial twitch Nurse's Recommendation / WHEN: Other Nurse's Recommendation / WHERE: Clinic[facility] Nurse's Other / WHEN: as able Patient Disposition Patient/Caregiver agrees to plan of care: Yes Nursing Plan and Disposition Referred Patient for In-Person Appt Other Other Description: as unable to accommodate PCP appointment within 4 weeks - will flag PACT via MM to review; contact vet with best plan. Nurse Summary Nurse Summary: PATIENT CONCERN/DURATION/ONSET: vet calls; reports she has had intermittent R sided facial tick for chin to R eye since mid September. Caller notes she received he current glasses about that time; is concerned they may be playing a role in the issue. NO DIEGO, no facial droop no weakness, no confusion, no slurred speech no change in vision- no flashing, floaters, double vision, no blurred vision. caller reports the twitch/spasm occurs both with and without her glasses on Caller seeks eval of 8+ weeks of intermittent facial twitch. WHAT HAS PATIENT TRIED TO TREAT THE SYMPTOMS: nothing HISTORY/PREVIOUS TREATMENT: noted since mid september WHAT IS PATIENT GOAL FOR THE CALL: eval of twitch Was Care Now considered (TELE or VVC)? 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 no acute change- as unable to book to PACT x > 4 weeks- MM sent to PACT to please assist. Vet agrees to call back PRN any acute change. Best contact for is (Verified). This note was created by a [address] package dyer. Please do not alert this nurse by adding as a signer for future communications. Alerts are not monitored by this user, please reach out to [facility] instead if indicated. Clinical Contact Center Codes Clinic/Location: [address] PHONE [facility] RN /baltazar/ MIRNA HERRON RN VISN 23 Daytime fur glazer Signed: 01/12/2023 13:29 01/12/2023 ADDENDUM STATUS: COMPLETED vet seen for this 01/07/23. RN spoke to maintenance truck driver about this for clarification of what vet is asking for. Vet wants additional work up RTC placed /baltazar/ MICKI JAIN REGISTERED NURSE Signed: 01/12/2023 13:35 MIRNA HERRON [facility]
--- OUTSIDE RECORDS SUMMARY | 2023-06-24 08:41 | XMS_ITS | Encounter Summary ---
Author Name [facility] Organization [facility] of [facility] Address [address] [place] [address] Insurance Providers: All historical and current Section Date Range: From patient's date of to the date document was created. This section includes the names of all active insurance providers for the patient. Insurance Provider Type of Coverage Plan Name Start of Policy Coverage End of Policy Coverage Group Number Member ID Insurance Provider's Telephone Number Policy Talavera's Name Patient's Relationship to Policy Talavera [facility] ([id number]) PRESCRIPT ION GEHA May 30, 2005 [id number] [phone] SONIA MOBLEY PATIENT GEHA (SECONDARY ) PREFERRED PROVIDER ORGANIZAT ION (PPO) GEHA A/B PRIMA RY May 30, 2005 [id number] [phone] SONIA MOBLEY PATIENT GEHA (SECONDARY ) PREFERRED PROVIDER ORGANIZAT ION (PPO) GEHA A&B PRIMA RY May 30, 2005 [id number] SONIA MOBLEY PATIENT [facility] PREFERRED PROVIDER ORGANIZAT ION (PPO) DO NOT USE May 30, 2005 [id number] [phone] TONI BRITO PATIENT MEDICARE (WNR) MEDICARE (M) PART B Jan 29, 2000 PART B [id number] SONIA MOBLEY PATIENT MEDICARE (WNR) MEDICARE (M) PART A Jan 29, 2000 PART A [id number] [phone] SONIA MOBLEY PATIENT Selected Encounter This section includes the information on record at [place] for the Encounter. Date/Time Encounter Type Encounter Description Reason Provider Source Jan 07, 2023 10:00 AM OFFICE O/P EST HI 40-54 MIN COMP [facility] ICD-10-CM 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 MARQUES RAMIREZRYAN Trini [facility] Encounter Template Text not used by [place] Assessments - Encounter Diagnoses This section includes the primary and secondary diagnoses documented for the Encounter. Date/Time Primary/Secondary Diagnosis Diagnosis Name Provider Source Feb 03, 2023 06:46 AM PRIMARY Blepharospasm ASHLEYMARQUES Feliz [facility] Feb 03, 2023 06:46 AM SECONDARY Essential (primary) hypertension ASHLEYMARQUES [facility] Plan of Treatment: Future Appointments (+ 6 months) and Future Tests (+/- 45 days) The Plan of Treatment section includes future care activities for the patient from all [place] [facility]. This section includes future appointments and future orders which are active, pending or scheduled. Future Appointments This section includes appointments that were scheduled to occur 6 months from the date of the Encounter, up to a maximum of 20 appointments. The data comes from all [place] treatment [facility]. Appointment Date/Time Appointment Type Appointme nt Facility Name Feb 10, 2023 08:30 AM AMBULATORY - MEDICINE [facility] Mar 15, 2023 10:00 AM AMBULATORY - NONE [facility] Mar 15, 2023 11:00 AM AMBULATORY - MEDICINE [facility] May 03, 2023 08:30 AM AMBULATORY - REHAB MED[facility] May 03, 2023 09:00 AM AMBULATORY - SURGERY [facility] May 09, 2023 03:00 PM AMBULATORY - REHAB MED[facility]IN [facility] May 18, 2023 09:15 AM AMBULATORY - SURGERY [facility] May 24, 2023 05:00 PM AMBULATORY - REHAB MED[facility]IN [facility] May 31, 2023 01:00 PM AMBULATORY - SURGERY [facility] Jun 28, 2023 10:40 AM AMBULATORY - SURGERY [facility] Vital Signs: All taken on the encounter date This section contains inpatient and outpatient Vital Signs collected on the date of the Encounter. Date/Time Temperature Pulse Blood Pressure Respiratory Rate SP02 Pain Height Weight Body Mass Index Source Jan 07, 2023 10:14 AM 200/74 mm[Hg] [facility] Jan 07, 2023 10:04 AM 77 /min 197/96 mm[Hg] 18 /min 96 % 2 162.1 lb 31 [facility] Social History: Smoking Status (Most current) and [...] place. Date/Time Current Smoking Status Comment Robyn itshawanda October 18, 2022 10:00 AM VA-TOBACCO NEVER USED [facility] Tobacco Use History This section includes a history of the smoking, or tobacco-related health factors, that were collected on or before the date of the Encounter. The data comes from the [facility] where the Encounter took place. Date/Time Smoking Status/Tobacco Use Comment F manoj September 28, 2021 09:30 AM [place]TO[place] NEVER US[place] [facility] Nov 10, 2020 08:30 AM [place] US[place] [facility] Encounter Notes: All associated encounter notes This section contains the clinical notes associated to the Encounter. Date/Time Encounter Note(s) Provider Source Jan 07, 2023 11:41 AM COMMUNICATION NOTE: LOCAL TITLE: [place] TEXT MESSAGE NOTE STANDARD TITLE: COMMUNICATION NOTE DATE OF NOTE: JAN 07, 2023@11:41 ENTRY DATE: JAN 07, 2023@11:41:12 AUTHOR: MARY VANEGAS COSIGNER: URGENCY: STATUS: COMPLETED [place] TEXT MESSAGE NOTE Has ADDENDA [place] assigned a Health Message in [place] on Dec to assist with high BP . Tamica Consent: By registering the patient, I am verifying the patient understands and agrees to the following: -Using [place]ica is voluntary and is designed to support patient self-care. -[place] messages are automated and not regularly monitored by the health care team. -For help with medical concerns, patients should call their health care team directly. -SMS text messages are not secure. Msg & Data rates may apply. Message frequency varies. -For problems with Tamica, or questions about Tamica, text HELP. Text STOP to end participation. -Collection of a patient's information by [place] is subject to federal law. -For Terms of Use and Privacy Info visit: [place] was assigned the following Health Message(s): Hypertension Will check BP -- and follow up in two weeks. Adding TL for follow up. /baltazar/ MARY VANEGAS RN REGISTERED NURSE Signed: 01/07/2023 11:41 Receipt Acknowledged By: 01/07/2023 11:50 /baltazar/ MICKI JAIN REGISTERED NURSE 01/07/2023 ADDENDUM STATUS: COMPLETED tickler for [place] BP check in 2 weeks /baltazar/ MICKI JAIN REGISTERED NURSE Signed: 01/07/2023 11:51 MARY VANEGAS [facility] Jan 07, 2023 10:08 AM [facility] OUTPATIENT NOTE: LOCAL TITLE: [facility] CLINIC NURSING NOTE STANDARD TITLE: [facility] OUTPATIENT NOTE DATE OF NOTE: JAN 07, 2023@10:08 ENTRY DATE: JAN 07, 2023@10:08:50 AUTHOR: NASIR PINEDA MA EXP COSIGNER: URGENCY: STATUS: COMPLETED [facility] NURSING NOTE Has ADDENDA TYPE OF VISIT: Appointment Check In Type of appointment: In-person appointment REASON FOR VISIT: Left side facial twitching ALLERGIES: Patient has answered NKA VITAL SIGNS: Blood Pressure: 197/96 (01/07/2023 10:04) Pulse: 77 (01/07/2023 10:04) Respiration: 18 (01/07/2023 10:04) Temperature: 97.5 F [36.4 C] (08/09/2022 09:27) Weight: 162.1 lb [73.53 kg] (01/07/2023 10:04) Height: 61 in [154.9 cm] (10/18/2022 10:05) BMI: 30.7 O2 Sat: 96% (01/07/2023 10:04) Pain: 2 (01/07/2023 10:04) PAIN SCREEN: Patient is not having significant pain that they wish to discuss with their provider today. MEDICATION Over the Counter/Herbal Medications: The patient denies taking any outside medications or herbals. /baltazar/ KANE PINEDA LPN LPN Signed: 01/07/2023 10:10 01/07/2023 ADDENDUM STATUS: COMPLETED Rechecked patient's blood pressure, it was 200/74.Patient is asymptomatic, no headache, chest pain or shortness of breath. /baltazar/ KANE PINEDA LPN LPN Signed: 01/07/2023 10:21 NASIR PINEDA [facility] Jan 07, 2023 07:17 AM [facility] OUTPATIENT E & M NOTE: LOCAL TITLE: [facility]S CLINIC NOTE STANDARD TITLE: [facility] OUTPATIENT E & M NOTE DATE OF NOTE: JAN 07, 2023@07:17 ENTRY DATE: JAN 07, 2023@07:17:27 AUTHOR: BRITANY RAMIREZ EXP COSIGNER: URGENCY: STATUS: COMPLETED Chief concern: eye twitching HPI/ROS: 87F concerned about eye twitching -- also includes L cheek and L lip / mouth going on for several months has a [facility] doctor as well; had drops 4x/day in L eye; has been using them, but they haven't made a difference. [place] bifocals from [place] - got new bifocals with this new optical prescription and with new no-line Happening a couple of times every day now --since got new glasses. no pain, no itching eyelid may droop and may pull at L lip Triggers: sunlight, if directly in eyes fatigue -- more in the evenings than in the morning, sometimes with night TV; sometimes with reading sometimes with changing position in class may twitch in response to sudden sight of something - reducing driving and stopping care in January no spasms or weakness in other areas of body no new headaches Past Medical History: Active Problems: Active problems - Computerized Problem [...] - 2011 4. Polymyalgia rheumatica 5. Prediabetes ([facility] [id number]) 6. 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 - pT1c, N0, M0-Stage 1A - s/p lumpectomy 06/2014, radiation therapy - On Anastrazole since 07/2014 7. History of cholecystectomy 8. History of total knee arthroplasty - R knee 9. Peripheral vascular disease - s/p stenting Femoral artery, 2008 10. Sleep Apnea ([facility] [id number]) 11. Benign essential hypertension 12. Thoracic aortic aneurysm without rupture Medications: Active Outpatient Medications (excluding Supplies): Outpatient Medications Status 1) AMLODIPINE BESYLATE 2.5MG TAB TAKE ONE TABLET BY ACTIVE MOUTH EVERY DAY FOR BLOOD PRESSURE 2) ANASTROZOLE 1MG TAB TAKE ONE TABLET BY MOUTH EVERY ACTIVE DAY FOR BREAST CANCER 3) ASPIRIN 81MG CHEW TAB CHEW ONE TABLET BY MOUTH EVERY ACTIVE DAY 4) ATORVASTATIN CALCIUM 80MG TAB TAKE ONE TABLET BY ACTIVE MOUTH EVERY DAY FOR CHOLESTEROL 5) CALCIUM 250MG/VITAMIN D 125 UNT TAB TAKE 2 TABLETS BY ACTIVE MOUTH EVERY DAY 6) CHOLECALCIF 25MCG (D3-1,000UNIT) TAB TAKE TWO TABLETS HOLD BY MOUTH EVERY DAY 7) HYDROCHLOROTHIAZIDE 12.5MG TAB TAKE ONE TABLET BY ACTIVE MOUTH EVERY DAY FOR BLOOD PRESSURE 8) LISINOPRIL 40MG TAB TAKE ONE TABLET BY MOUTH EVERY ACTIVE DAY FOR BLOOD PRESSURE 9) METOPROLOL SUCCINATE 50MG SA TAB TAKE ONE TABLET BY ACTIVE MOUTH AT BEDTIME FOR BLOOD PRESSURE 10) NITROFURANTOIN MONO/MACRO 100MG SA CAP TAKE ONE ACTIVE CAPSULE BY MOUTH EVERY DAY DIRECTED TO PREVENT URINARY TRACT INFECTION AFTER SWIMMING 11) OLOPATADINE HCL 0.1% OPH SOLN INSTILL 1 DROP IN BOTH ACTIVE EYES TWICE A DAY 12) OMEPRAZOLE 20MG EC CAP TAKE ONE CAPSULE BY MOUTH ACTIVE TWICE A WEEK ON AN EMPTY STOMACH, AT LEAST 30 MINUTES PRIOR TO A MEAL Vital Signs: reviewed Physical Exam: General Appearance: Alert, seated upright and conversational, in no acute distress. Neuro/MSK: Alert and oriented CN 2-12 intact. No resting or intention tremor, no pill-rolling. No dysdiadochokinesia. Normal gait with normal base. 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 5/5 strength bilateral hip abductors/adductors and bilateral hip knee, ankle flexors/extensors. Biceps, patellar reflexes 2+ bilaterally. Assessment and Plan: Blepharospasm discussed w/u options since s/s seem isolated and a/w new prescription, they'd like to get eye exam and new glasses as first steps Blood pressure variations Discussed possible variable BP w/age w/stiffer vasculature They plan to check BP when asx and when has sx RTC as req Total time spent with patient care including chart review/diagnostic and testing review, patient interview/examination, counseling and documentation was 45 minutes. /baltazar/ BRITANY RAMIREZ MD INTERNAL MEDICINE PHYSICIAN Signed: 02/03/2023 06:46 RICCARDO RAMIREZ [facility]
--- OUTSIDE RECORDS SUMMARY | 2023-06-24 08:41 | XMS_ITS | Encounter Summary ---
Author Name [facility] Organization [facility] Address [address] [place] [address] Insurance Providers: All historical and current Section Date Range: From patient's date of to the date document was created. This section includes the names of all active insurance providers for the patient. Insurance Provider Type of Coverage Plan Name Start of Policy Coverage End of Policy Coverage Group Number Member ID Insurance Provider's Telephone Number Policy Talavera's Name Patient's Relationship to Policy Talavera [facility] ([id number]) PRESCRIPT ION GEHA May 30, 2005 [id number] SONIA MOBLEY PATIENT GEHA (SECONDARY ) PREFERRED PROVIDER ORGANIZAT ION (PPO) GEHA A&B PRIMA RY May [birth year] 2005 [id number] [phone] SONIA MOBLEY PATIENT GEHA (SECONDARY ) PREFERRED PROVIDER ORGANIZAT ION (PPO) GEHA A/B PRIMA RY May 30[birth year] 2005 [id number] SONIA MOBLEY PATIENT [facility] PREFERRED PROVIDER ORGANIZAT ION (PPO) DO NOT USE May 30, 2005 [id number] [phone] TONI BRITO PATIENT MEDICARE (WNR) MEDICARE (M) PART A Jan 29, 2000 PART A [id number] SONIA MOBLEY PATIENT MEDICARE (WNR) MEDICARE (M) PART B Jan 29, 2000 PART B [id number] [phone] SONIA MOBLEY PATIENT Selected Encounter This section includes the information on record at [place] for the Encounter. Date/Time Encounter Type Encounter Description Reason Pro vider Source Jan 04, 2023 09:44 AM Outpatient Encounter COMP [facility] I[facility] Encounter Template Text not used by [place] Plan of Treatment: Future Appointments (+ 6 months) and Future Tests (+/- 45 days) The Plan of Treatment section includes future care activities for the [facility] This section includes future appointments and future orders which are active, pending or scheduled. Future Appointments This section includes appointments that were scheduled to occur 6 months from the date of the Encounter, up to a maximum of 20 appointments. The data comes from all [place] treatment facilities. Appointment Date/Time Appointment Type Appointme nt Facility Name Jan 07, 2023 10:00 AM [facility] Feb 10, 2023 08:30 AM AMBULATORY - MEDICINE [facility] Mar 15, 2023 10:00 AM AMBULATORY - NONE [facility] Mar 15, 2023 11:00 AM AMBULATORY - MEDICINE [facility] May 03, 2023 08:30 AM AMBULATORY - REHAB MEDICIN E [facility] May 03, 2023 09:00 AM AMBULATORY - SURGERY [facility] May 09, 2023 03:00 PM AMBULATORY - REHAB MEDICIN E [facility] May 18, 2023 09:15 AM AMBULATORY - SURGERY [facility] May 24, 2023 05:00 PM AMBULATORY - REHAB MEDICIN [facility] May 31, 2023 01:00 PM AMBULATORY - SURGERY [facility] Jun 28, 2023 10:40 AM AMBULATORY - SURGERY [facility] Social History: Smoking Status (Most current) and Tobacco Use (All prior to encounter date) This section includes the most current, and the historical, smoking and tobacco- related health factors from the [facility] where the Encounter took place. Current Smoking Status This section includes the most current smoking, or tobacco-related health factor, from the [facility] facility where the Encounter took place. Date/Time Current Smoking Status Comment Robyn ity October 18, 2022 10:00 AM [place]-TOBACCO NEVER USED [facility] Tobacco Use History This section includes a history of the smoking, or tobacco-related health factors, that were collected on or before the date of the Encounter. The data comes from the [facility] facility where the Encounter took place. Date/Time Smoking Status/Tobacco Use Comment F acility September 28, 2021 09:30 AM [place]-TOBACCO NEVER USED [facility] Nov 10, 2020 08:30 AM [place]-TOBACCO NEVER USED [facility] Encounter Notes: All associated encounter notes This section contains the clinical notes associated to the Encounter. Date/Time Encounter Note(s) Provider Source Jan 04, 2023 09:44 AM [facility]: LOCAL TITLE: [facility]IC NURSING NOTE STANDARD TITLE: [facility] NURSING OUTPATIENT NOTE DATE OF NOTE: JAN 04, 2023@09:44 ENTRY DATE: JAN 04, 2023@09:44:41 AUTHOR: MICKI JAIN EXP COSIGNER: URGENCY: STATUS: COMPLETED Vet calls to speak to RN about twitching in her eye. Vet notes it is interfering with her ability to read and is bothersome. Appt scheduled for provider 01/07 1000. Vet will call triage or present to ER if sx worsen in meantime /es/ MICKI JAIN REGISTERED NURSE Signed: 01/04/2023 09:45 MICKI JAIN [facility]
--- OUTSIDE RECORDS SUMMARY | 2023-06-24 08:42 | XMS_ITS | Encounter Summary ---
Author Name Department of Vetera [facility] Organization Department of Vetera Affairs Address [address] [place] [address] Insurance Providers: All historical and current Section [...] Name Patient's Relationship to Policy Talavera [facility] ([id number]) PRESCRIPT ION GEHA May 30, 2005 [id number] SONIA MOBLEY PATIENT GEHA (SECONDARY ) PREFERRED PROVIDER ORGANIZAT ION (PPO) GEHA A/B PRIMA RY May 30, 2005 [id number] SONIA MOBLEY PATIENT GEHA (SECONDARY ) PREFERRED PROVIDER ORGANIZAT ION (PPO) GEHA A&B PRIMA RY May 30, 2005 [id number] SONIA MOBLEY PATIENT [facility] PREFERRED PROVIDER ORGANIZAT ION (PPO) DO NOT USE May 30, 2005 [id number] TONI BRIOT PATIENT MEDICARE (WNR) MEDICARE (M) PART A Jan 29, 2000 PART A [id number] [phone] SONIA MOBLEY PATIENT MEDICARE (WNR) MEDICARE (M) PART B Jan 29, 2000 PART B [id number] [phone] SONIA MOBLEY PATIENT Selected Encounter This section includes the information on record at [place] for the Encounter. Date/Time Encounter Type Encounter Description Reason Pro vider Source Jan 24, 2023 09:10 AM Outpatient Encounter [facility] Encounter Template Text not used by [place] Plan of Treatment: Future Appointments (+ 6 months) and Future Tests (+/- 45 days) The Plan of Treatment section includes future care activities for the patient from [facility] [place] [facility] This section includes future appointments and future orders which are active, pending or scheduled. Future Appointments This section includes appointments that were scheduled to occur 6 months from the date of the Encounter, up to a maximum of 20 appointments. The data comes from all [place] treatment facilities. Appointment Date/Time Appointment Type Appointme nt Facility Name Feb 10, 2023 08:30 AM AMBULATORY - MEDICINE [facility] Mar 15, 2023 10:00 AM AMBULATORY - NONE [facility] Mar 15, 2023 11:00 AM AMBULATORY - MEDICINE [facility] May 03, 2023 08:30 AM AMBULATORY - REHAB [facility]IN [facility] May 03, 2023 09:00 AM AMBULATORY - SURGERY [facility] May 09, 2023 03:00 PM AMBULATORY - REHAB MEDICIN E [facility] May 18, 2023 09:15 AM AMBULATORY - SURGERY [facility] May 24, 2023 05:00 PM AMBULATORY - REHAB MEDICIN E [facility] May 31, 2023 01:00 PM AMBULATORY - SURGERY [facility] Jun 28, 2023 10:40 AM AMBULATORY - SURGERY [facility] Social History: Smoking Status (Most current) and Tobacco Use (All prior to encounter date) This section includes the most current, and the historical, smoking and tobacco- related health factors from the [facility] where the Encounter took place. Current Smoking Status This section includes the most current smoking, or tobacco-related health factor, from the [place] facility where the Encounter took place. Date/Time Current Smoking Status Comment Robyn ity October 18, 2022 10:00 AM [place]-TOBACCO NEVER USED [facility] Tobacco Use History This section includes a history of the smoking, or tobacco-related health factors, that were collected on or before the date of the Encounter. The data comes from the [place] facility where the Encounter took place. Date/Time Smoking Status/Tobacco Use Comment F acnelia September 28, 2021 09:30 AM [place]-TOBACCO NEVER USED [facility] Nov 10, 2020 08:30 AM VA-TOBACCO NEVER USED [facility] Encounter Notes: All associated encounter notes This section contains the clinical notes associated to the Encounter. Date/Time Encounter Note(s) Provider Source Jan 24, 2023 12:38 PM ADDENDUM: LOCAL TITLE: Addendum STANDARD TITLE: ADDENDUM DATE OF NOTE: JAN 24, 2023@12:38:22 ENTRY DATE: JAN 24, 2023@12:38:23 AUTHOR: TESSA LEBRON EXP COSIGNER: URGENCY: STATUS: COMPLETED Based on BP readings, will increase amlodipine to 5 mg a day. New prescription ordered. REquest PACT RN notify [place] - continue other meds unchanged. /baltazar/ Tessa Lebron MD Staff Physician Signed: 01/24/2023 13:13 Receipt Acknowledged By: 01/24/2023 13:54 /baltazar/ MICKI JAIN REGISTERED NURSE --- Original Document --- 01/24/23 [facility] NURSING NOTE: Sindy rodriguez Vet is currently taking the following BP meds Metoporolol 50mg qd Amlodipine 2.5mg qd Hctz 12.5mg qd Lisinopril 40mg qd SYSTOLIC mmHg LOWEST 140 HIGHEST 177 AVERAGE 155.83 LATEST 140 DAYS REPORTING 6 DIASTOLIC mmHg LOWEST 66 HIGHEST 82 AVERAGE 71.17 LATEST 72 DAYS REPORTING 6 Date/Time Systolic/Diastolic - mmHg 01/21/2023 09:03 AM CDT 140/72 01/19/2023 09:18 AM CDT 144/68 01/17/2023 09:20 AM CDT 152/70 01/14/2023 09:00 AM CDT 162/66 01/12/2023 08:58 AM CDT 160/82 01/10/2023 09:17 AM CDT 177/69 /baltazar/ MICKI JAIN REGISTERED NURSE Signed: 01/24/2023 09:14 Receipt Acknowledged By: 01/24/2023 12:38 /talat Lebron MD Staff Physician for DOMINIC ELY 01/24/2023 ADDENDUM STATUS: COMPLETED RN attempted phone call to . Voicemail left asking to return call. Direct number provided for call back. /baltazar/ MICKI JAIN REGISTERED NURSE Signed: 01/24/2023 13:22 01/24/2023 ADDENDUM STATUS: COMPLETED Vet informed of the above, no additional questions or concerns at this time. /baltazar/ MICKI JAIN REGISTERED NURSE Signed: 01/24/2023 13:55 TESSA LEBRON [facility] Jan 24, 2023 09:10 AM [facility] NURS ING OUTPATIENT NOTE: LOCAL TITLE: [facility] NURSING NOTE STANDARD TITLE: [facility] NURSING OUTPATIENT NOTE DATE OF NOTE: JAN 24, 2023@09:10 ENTRY DATE: JAN 24, 2023@09:11:08 AUTHOR: MICKI JAIN EXP COSIGNER: URGENCY: STATUS: COMPLETED [facility] NURSING NOTE Has ADDENDA Sindy BP readings Vet is currently taking the following BP meds Metoporolol 50mg qd Amlodipine 2.5mg qd Hctz 12.5mg qd Lisinopril 40mg qd SYSTOLIC mmHg LOWEST 140 HIGHEST 177 AVERAGE 155.83 LATEST 140 DAYS REPORTING 6 DIASTOLIC mmHg LOWEST 66 HIGHEST 82 AVERAGE 71.17 LATEST 72 DAYS REPORTING 6 Date/Time Systolic/Diastolic - mmHg 01/21/2023 09:03 AM CDT 140/72 01/19/2023 09:18 AM CDT 144/68 01/17/2023 09:20 AM CDT 152/70 01/14/2023 09:00 AM CDT 162/66 01/12/2023 08:58 AM CDT 160/82 01/10/2023 09:17 AM CDT 177/69 /baltazar/ MICKI JAIN REGISTERED NURSE Signed: 01/24/2023 09:14 Receipt Acknowledged By: 01/24/2023 12:38 /baltazar/ Tessa Lebron MD Staff Physician for DOMINIC ELY 01/24/2023 ADDENDUM STATUS: COMPLETED Based on BP readings, will increase amlodipine to 5 mg a day. New prescription ordered. REquest PACT RN notify [place] - continue other meds unchanged. /es/ Tessa Lebron MD Staff Physician Signed: 01/24/2023 13:13 Receipt Acknowledged By: 01/24/2023 13:54 /baltazar/ MICKI JAIN REGISTERED NURSE 01/24/2023 ADDENDUM STATUS: COMPLETED RN attempted phone call to . Voicemail left asking to return call. Direct number provided for call back. /baltazar/ MICKI JAIN REGISTERED NURSE Signed: 01/24/2023 13:22 01/24/2023 ADDENDUM STATUS: COMPLETED Vet informed of the above, no additional questions or concerns at this time. /baltazar/ MICKI JAIN REGISTERED NURSE Signed: 01/24/2023 13:55 MICKI JAIN [facility]
--- OUTSIDE RECORDS SUMMARY | 2023-06-24 08:42 | XMS_ITS | Encounter Summary ---
Author Name Department of Vetera [facility] Organization Department of Vetera [facility] Address [address] [place] [address] Insurance Providers: All historical and current Section Date Range: From patient's date of to the date document was created. This section includes the names of all active insurance providers for the patient. Insurance Provider Type of Coverage Plan Name Start of Policy Coverage End of Policy Coverage Group Number Member ID Insurance Provider's Telephone Number Policy Talavera's Name Patient's Relationship to Policy Talavera [facility] ([id number]) PRESCRIPT ION GEHA May 30, 2005 [id number] SONIA MOBLEY PATIENT GEHA (SECONDARY ) PREFERRED PROVIDER ORGANIZAT ION (PPO) GEHA A&B PRIMA RY May 30, 2005 [id number] SONIA MOBLEY PATIENT GEHA (SECONDARY ) PREFERRED PROVIDER ORGANIZAT ION (PPO) GEHA A/B PRIMA RY May 30, 2005 [id number] SONIA MOBLEY PATIENT [facility] PREFERRED PROVIDER ORGANIZAT ION (PPO) DO NOT USE May 30, 2005 [id number] [phone] TONI BRITO PATIENT MEDICARE (WNR) MEDICARE (M) PART B Jan 29, 2000 PART B [id number] [phone] SONIA MOBLEY PATIENT MEDICARE (WNR) MEDICARE (M) PART A Jan 29, 2000 PART A [id number] [phone] SONIA MOBLEY PATIENT Selected Encounter This section includes the information on record at [place] for the Encounter. Date/Time Encounter Type Encounter Description Reason Pro vider Source Mar 08, 2023 12:00 AM Outpatient Encounter EVENT (HISTORICAL) IHE Encounter Template Text not used by [place] Plan of Treatment: Future Appointments (+ 6 months) and Future Tests (+/- 45 days) The Plan of Treatment section includes future care activities for the patient from all [place] [facility]. This section includes future appointments and future orders which are active, pending or scheduled. Future Appointments This section includes appointments that were scheduled to occur 6 months from the date of the Encounter, up to a maximum of 20 appointments. The data comes from all [place] treatment facilities. Appointment Date/Time Appointment Type Appointme nt Facility Name Mar 15, 2023 10:00 AM AMBULATORY - NONE [facility] Mar 15, 2023 11:00 AM AMBUL[facility]ORY [facility] May 03, 2023 08:30 [facility] 09[facility]00 AM AMBULAT[facility] - SURGERY [facility] May 09, 2023 03:00 PM AMBULATORY - REHAB MEDIC[facility] May 18, 2023 09:15 AM AMBULATORY - SURGERY [facility] May 24, 2023 05:00 PM AMBULATORY - REHAB MEDICIN [facility] May 31, 2023 01:00 PM AMBULATORY - SURGERY [facility] Jun 28, 2023 10:40 AM AMBULATORY - SURGERY [facility] Aug 09, 2023 11:00 AM AMBULATORY - REHAB [facility] Lab Results: +/- 30 days of [...] Result - Unit Interpretation Reference Range Comment Mar 15, 2023 08:22 AM [facility] BASIC METABOLIC PANEL+MG Specimen Type: PLASMA No comment entered. Ordering Provider: MARIMAR LEBRON Report Released Date/Time: Feb 10, 2023 09:08 AM Reporting Lab: [facility] [id number] Performing Lab: [facility] [id number] CREATININE 0.6 0.5-1.0 UREA NITROGEN 9 7-20 GLUCOSE 106 H 70-100 SODIUM 138 136-145 POTASSIUM 3.4 L 3.5-5.1 CHLORIDE 103 98-107 CO2 28 22-29 CALCIUM 9.3 8.4-10.2 MAGNESIUM 1.8 1.6-2.6 ANION GAP 7 5-15 .CREAT EGFR(CKD-EPI ) 86 >60 Mar 15, 2023 08:22 AM [facility] VIT D 25-OH,TOTAL Specimen Type: SERUM No comment entered. Ordering Provider: DOMINIC TREJO Report Released Date/Time: Mar 16, 2022 11:04 AM Reporting Lab: [facility] [id number] Performing Lab: [facility] [id number] VIT D 25-OH,TOTAL 30 12-50 Mar 15, 2023 08:22 AM [facility] TSH W/REFLEX TO FREE T4 Specimen Type: PLASMA No comment entered. Ordering Provider: DOMINIC TREJO Report Released Date/Time: Mar 16, 2022 11:04 AM Reporting Lab: [facility] [id number] Performing Lab: [facility] [address] TSH 0.61 0.35-4.94 Mar 15, 2023 08:22 AM [facility] CBC Specimen Type: BLOOD No comment entered. Ordering Provider: DOMINIC TREJO Report Released Date/Time: Mar 16, 2022 11:04 AM Reporting Lab: [facility] [id number] Performing Lab: [facility] [id number] WBC 5.71 4.0-11.0 RBC 4.77 4.0-5.4 HGB 14.2 11.5-16 HCT 40.8 34.5-48 MCV 85.5 80-100 MCH 29.8 27-33 MCHC 34.8 32.0-37.5 PLT 187 150-400 MPV 9.3 7.4-10.4 RDW 13.6 11.5-14.5 Mar 15, 2023 08:22 AM [facility] BASIC METABOLIC PANEL+MG Specimen Type: PLASMA No comment entered. Ordering Provider: DOMINIC TREJO Report Released Date/Time: Mar 16, 2022 11:04 AM Reporting Lab: [facility] [phone] Performing Lab: [facility] Mar 15, 2023 08:22 AM [facility] LIPID PANEL,NON-FASTING Specimen Type: PLASMA No comment entered. Ordering Provider: DOMINIC TREJO Report Released Date/Time: Mar 16, 2022 11:04 AM Reporting Lab: [facility] [phone] Performing Lab: [facility] Mar 15, 2023 08:22 AM [facility] HEMOGLOBIN A1C Specimen Type: BLOOD Comment: Values obtained from A1C measurements can vary. For typical A1C assays, a reported value of 7.0 could actually be between 6.7 and 7.3 if measured by a reference method. A reported value of 9.0 could actually be between 8.7 and 9.3. Ref: http://www.ngs p.org/CAPdata. asp Ordering Provider: DOMINIC TREJO Report Released Date/Time: Mar 16, 2022 11:04 AM Reporting Lab: [facility] [phone] Performing Lab: [facility] [phone] HEMOGLOBIN A1C 6.0 4.0-6.0 Immunizations: All administered on the encounter date This section contains immunizations associated to the Encounter. Immunization Series Date Issued Reaction Comments INFLUENZA VACCINE, QUADRIVALENT, ADJUVANTED Mar 08, 2023 Social History: Smoking Status (Most current) and [...] 18, 2022 10:00 AM VA-TOBACCO NEVER USED [facility] Tobacco Use History This section includes a history of the smoking, or tobacco-related health factors, that were collected on or before the date of the Encounter. The data comes from the [place] facility where the Encounter took place. Date/Time Smoking Status/Tobacco Use Comment F acility September 28, 2021 09:30 AM VA-TOBACCO NEVER USED [facility] Nov 10, 2020 08:30 AM VA-TOBACCO NEVER USED [facility] Pathology Reports: +/- 30 days of the encounter Pathology Reports For cases when an order for pathology services may have been completed prior to the date of the Encounter, the report list includes the Pathology Reports that were completed up to 30 days before dateof the Encounter. For cases when an order for pathology services may have been completed after the date of the Encounter, the report list also includes the Pathology Reports that were completed up to30 days after date of the Encounter. The data comes from all [place] treatment facilities. Date/Time Pathology Report Provider Source Mar 16, 2023 02:58 PM LR SURGICAL PATHOL OGY REPORT: LOCAL TITLE: LR SURGICAL PATHOLOGY REPORT STANDARD TITLE: PATHOLOGY REPORT DATE OF NOTE: MAR 16, 2023@14:58:43 ENTRY DATE: MAR 16, 2023@14:58:43 AUTHOR: ALICIA KAUFMAN EXP COSIGNER: URGENCY: STATUS: COMPLETED $APHDR Reporting Lab: [facility] [CLIA# [id number]] [place] [address] - - - - - - - - - - - - - - - - - - - - - - - - - - - - - - - - - - - - - - - - MEDICAL RECORD SURGICAL PATHOLOGY - - - - - - - - - - - - - - - - - - - - - - - - - - - - - - - - - - - - - - - - PATHOLOGY REPORT Accession No. [id number] - - - - - - - - - - - - - - - - - - - - - - - - - - - - - - - - - - - - - - - - $TEXT Submitted by: DOMINIC TREJO Date obtained: Mar 15, 2023 - - - - - - - - - - - - - - - - - - - - - - - - - - - - - - - - - - - - - - - - Specimen (Received Mar 15, 2023 14:38): L SHOULDER - - - - - - - - - - - - - - - - - - - - - - - - - - - - - - - - - - - - - - - - BRIEF CLINICAL HISTORY: Pt with nodular skin lesion; was concerned it was an acne type lesion; present per report for 3-4 days. However, on incision into the center, was a fibrous lesion and nothing was expressed. Then proceeded with a shave biopsy to remove. Procedure: shave biopsy - - - - - - - - - - - - - - - - - - - - - - - - - - - - - - - - - - - - - - - - PREOPERATIVE DIAGNOSIS: As above - - - - - - - - - - - - - - - - - - - - - - - - - - - - - - - - - - - - - - - - OPERATIVE FINDINGS: - - - - - - - - - - - - - - - - - - - - - - - - - - - - - - - - - - - - - - - - POSTOPERATIVE DIAGNOSIS: Surgeon/physician: DOMINIC ELY MD =-=-=-=-=-=-=-=-=-=-=-=-=-=-=- =-=-=-=-=-=-=-=-=-=-=-=-=-=-=- =-=-=-=-=-=-=-=-=-= - - - - - - - - - - - - - - - - - - - - - - - - - - - - - - - - - - - - - - - - PATHOLOGY REPORT Accession No. [id number] - - - - - - - - - - - - - - - - - - - - - - - - - - - - - - - - - - - - - - - - GROSS DESCRIPTION: The requisition form and specimen(s) identification is confirmed. The specimen is labeled left shoulder and consists of a shave biopsy of an erythematous nodule measuring 1.0 x 0.9 x 0.3 cm. The specimen is inked. CE. (D) SMcCoy/cc MICROSCOPIC DESCRIPTION: Microscopic examination performed. 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, incompletely removed /es/ ALICIA KAUFMAN MD STAFF PATHOLOGIST, PATHOLOGY & LABORATORY MED [facility] Signed Mar 16, 2023@14:58 Performing Laboratory: Surgical Pathology Report Performed By: [facility] [CLIA# [id number]] [place] [address] $FTR - - - - - - - - - - - - - - - - - - - - - - - - - - - - - - - - - - - - - - - - (End of report) ALICIA KAUFMAN MD dla Date Mar 16, 2023 - - - - - - - - - - - - - - - - - - - - - - - - - - - - - - - - - - - - - - - - ALICE MOBLEY STANDARD FORM 515 ID:[id number] SEX:F :1935 AGE: 88 LOC:[id number] PCP: Dominic Ely MD /baltazar/ ALICIA KAUFMAN MD STAFF PATHOLOGIST, PATHOLOGY & LABORATORY MED [facility] Signed: 03/16/2023 14:58 ALICIA KAUFMAN [facility]
--- OUTSIDE RECORDS SUMMARY | 2023-06-24 08:42 | XMS_ITS | Encounter Summary ---
Author Name Department of Vetera [facility] Organization Department of [facility]a Affairs Address [address] [place] [address] Insurance Providers: All historical and current Section Date Range: From patient's date of to the date document was created. This section includes the names of all active insurance providers for the patient. Insurance Provider Type of Coverage Plan Name Start of Policy Coverage End of Policy Coverage Group Number Member ID Insurance Provider's Telephone Number Policy Talavera's Name Patient's Relationship to Policy Talavera [facility] ([id number]) PRESCRIPT ION GEHA May 30, 2005 [id number] SONIA MOBLEY PATIENT GEHA (SECONDARY ) PREFERRED PROVIDER ORGANIZAT ION (PPO) GEHA A&B PRIMA RY May 30, 2005 [id number] SONIA MOBLEY PATIENT GEHA (SECONDARY ) PREFERRED PROVIDER ORGANIZAT ION (PPO) GEHA A/B PRIMA RY May 30, 2005 [id number] [phone] SONIA MOBLEY PATIENT [facility] PREFERRED PROVIDER ORGANIZAT ION (PPO) DO NOT USE May 30, 2005 [id number] TONI BRITO PATIENT MEDICARE (WNR) MEDICARE (M) PART B Jan 29, 2000 PART B [id number] [phone] SONIA MOBLEY PATIENT MEDICARE (WNR) MEDICARE (M) PART A Jan 29, 2000 PART A [id number] [phone] SONIA MOBLEY PATIENT Selected Encounter This section includes the information on record at [place] for the Encounter. Date/Time Encounter Type Encounter Description Reason Provider Source Jan 18, 2023 03:01 PM Outpatient Encounter TELEPHONE TRIAGE ELY,[place] IHE Encounter Template Text not used by [place] Plan of Treatment: Future Appointments (+ 6 months) and Future Tests (+/- 45 days) The Plan of Treatment section includes future care activities for the patient [facility] [place] [facility] This section includes future appointments [...] 10, 2023 08:30 AM AMBULATORY - MEDICINE [facility] Mar 15, 2023 10:00 AM AMBULATORY - NONE [facility] Mar 15, 2023 11:00 AM AMBULATORY - MEDICINE [facility] May 03, 2023 08:30 AM AMBULATORY - REHAB MEDICIN [facility] May 03, 2023 09:00 AM AMBULATORY - SURGERY [facility] May 09, 2023 03:00 PM AMBULATORY - REHAB MEDICIN [facility] May 18, 2023 09:15 AM AMBULATORY - SURGERY [facility] May 24, 2023 05:00 PM AMBULATORY - REHAB MEDICIN [facility] May 31, 2023 01:00 PM AMBULATORY - SURGERY [facility] Jun 28, 2023 10:40 AM AMBULATORY - SURGERY [facility] Social History: Smoking Status (Most current) and Tobacco Use (All prior to encounter date) This section includes the most current, and the historical, smoking and tobacco- related health factors from the [facility] where the Encounter took place. Current Smoking Status This section includes the most current smoking, or tobacco-related health factor, from the [place] facility where the Encounter took place. Date/Time Current Smoking Status Comment Robyn baez October 18, 2022 10:00 AM [place]-TOBACCO NEVER USED [facility] Tobacco Use History This section includes a history of the smoking, or tobacco-related health factors, that were collected on or before the date of the Encounter. The data comes from the [place] facility where the Encounter took place. Date/Time Smoking Status/Tobacco Use Comment Farooq acnelia September 28, 2021 09:30 AM [place]-TOBACCO NEVER USED [facility] Nov 10, 2020 08:30 AM VA-TOBACCO NEVER USED [facility] Encounter Notes: All associated encounter notes This section contains the clinical notes associated to the Encounter. Date/Time Encounter Note(s) Provider Source Jan 18, 2023 03:01 PM RN PROGRESS NOTE: LOCAL TITLE: CCC: CLINICAL TRIAGE STANDARD TITLE: RN PROGRESS NOTE DATE OF NOTE: JAN 18, 2023@15:01:59 ENTRY DATE: JAN 18, 2023@15:01:59 AUTHOR: ABBY ELY COSIGNER: URGENCY: STATUS: COMPLETED Patient Demographics Patient Name: ALICE MOBLEY SSN: [id number] Patient Primary Address: [address] [place] [address] [address]
[place] [address] Patient Primary Phone: [phone] Patient : 1935 Patient Age: 87 Caller/Recipient Relation to Patient: Self Triage Summary Conducted triage/discussed symptoms Pain Score: 0 (No Pain) Utilized the Triage Tool: No Chief Complaint: Left side facial twitching Nursing Plan and Disposition Referred Patient for In-Person Appt Transferred patient to Sched & Admin-Apt Nurse Summary Nurse Summary: NURSES NOTES PATIENT CONCERN/DURATION/ONSET: Yarelis phones in she has been having twitching to the left side of her face ongoing for 5-6 months it began around the time she got her no line bifocals and continues to happen mainly when wearing no line bifocal but now also at other times ie. when she is sleeping and lays on the left side - and only when on the left. She states the twitching will start on the corner of her left lip and then go to her eye. It is like uncontrollable winking. The episodes last for about. WHAT HAS PATIENT TRIED TO TREAT THE SYMPTOMS: None HISTORY/PREVIOUS TREATMENT: See above. WHAT IS PATIENT GOAL FOR THE CALL: Goal for todays call is a PACT appointment. DID YOU CONSIDER USING [facility] LIP (TELE or VVC): Recommend in person PACT evaluation. TACK WELDER DISPOSITION: Triage recommendation within two weeks. No appointment available within recommended triage time. [place] scheduled for Tuesday01/24/23 at 10 AM Best contact for is (Verified). [phone] (Caller could accurately summarize the agreed upon plan of care as discussed in the education log portion of this note.) Per policy, automated recommendations for an ?appointment? indicates an interaction (virtual or in-person) with the care team. Clinical Contact Center Codes Clinic/Location: V23 MSP PHONE CCC RN /baltazar/ RIK DUNN, RN VISN 23 Daytime food chemist Signed: 01/18/2023 15:02 ABBY ELY [facility]
--- OUTSIDE RECORDS SUMMARY | 2023-06-24 08:42 | XMS_ITS | Encounter Summary ---
Author Name [employer] [facility] [employer] Organization [facility] [employer] [employer] Address [address] [place] [address] Insurance Providers: All historical and current Section Date Range: From patient's date of to the date document was created. This section includes the names of all active insurance providers for the patient. Insurance Provider Type of Coverage Plan Name Start of Policy Coverage End of Policy Coverage Group Number Member ID Insurance Provider's Telephone Number Policy Talavera's Name Patient's Relationship to Policy Talavera [facility] ([id number]) PRESCRIPT ION GEHA May 30, 2005 [id number] [phone] SONIA MOBLEY PATIENT GEHA (SECONDARY ) PREFERRED PROVIDER ORGANIZAT ION (PPO) GEHA A/B PRIMA RY May 30, 2005 [id number] SONIA MOBLEY PATIENT GEHA (SECONDARY ) PREFERRED PROVIDER ORGANIZAT ION (PPO) GEHA A&B PRIMA RY May 30, 2005 [id number] [phone] SONIA MOBLEY PATIENT [facility] PREFERRED PROVIDER ORGANIZAT ION (PPO) DO NOT USE May 30, 2005 [id number] TONI BRITO PATIENT MEDICARE (WNR) MEDICARE (M) PART B Jan 29, 2000 PART B [id number] [phone] SONIA MOBLEY PATIENT MEDICARE (WNR) MEDICARE (M) PART A Jan 29, 2000 PART A [id number] [phone] SONIA MOBLEY PATIENT Selected Encounter This section includes the information on record at MD for the Encounter. Date/Time Encounter Type Encounter Description Reason Provider Source Jan 25, 2023 02:24 PM Outpatient Encounter TELEPHONE TRIAGE HELDERBRIGETTE Feliz IHE Encounter Template Text not used by MD Plan of Treatment: Future Appointments (+ 6 months) and Future Tests (+/- 45 days) The Plan of Treatment section includes future care activities for the patient [facility] This section includes future appointments and future orders which are active, pending or scheduled. Future Appointments This section includes appointments that were scheduled to occur 6 months from the date of the Encounter, up to a maximum of 20 appointments. The [facility] comes from [facility]. Appointment Date/Time Appointment Type Appointme nt Facility Name Feb 10, 2023 08:30 AM AMBULATORY - MEDICINE [facility] Mar 15, 2023 10:00 AM AMBULATORY - NONE [facility] Mar 15, 2023 11:00 AM AMBULATORY - MEDICINE [facility] May 03, 2023 08:30 AM AMBULATORY - REHAB MEDICIN E [facility] May 03, 2023 09:00 AM AMBULATORY - SURGERY [facility] May 09, 2023 03:00 PM AMBULATORY - REHAB MEDICIN E [facility] May 18, 2023 09:15 AM AMBULATORY - SURGERY [facility] May 24, 2023 05:00 PM AMBULATORY - REHAB MEDICIN E [facility] May 31, 2023 01:00 PM AMBULATORY - SURGERY [facility] Jun 28, 2023 10:40 AM AMBULATORY - SURGERY [facility] Social History: Smoking Status (Most current) and Tobacco Use (All prior to encounter date) This section includes the most current, and the historical, smoking and tobacco- related health factors from the [facility] where the Encounter took place. Current Smoking Status This section includes the most current smoking, or tobacco-related health factor, from the MD facility where the Encounter took place. Date/Time Current Smoking Status Comment Robyn baez October 18, 2022 10:00 AM MD-TOBACCO NEVER USED [facility] Tobacco Use History This section includes a history of the smoking, or tobacco-related health factors, that were collected on or before the date of the Encounter. The data comes from the MD facility where the Encounter took place. Date/Time Smoking Status/Tobacco Use Comment Farooq acnelia September 28, 2021 09:30 AM MD-TOBACCO NEVER USED [facility] Nov 10, 2020 08:30 AM VA-TOBACCO NEVER USED [facility] Encounter Notes: All associated encounter notes This section contains the clinical notes associated to the Encounter. Date/Time Encounter Note(s) Provider Source Jan 25, 2023 02:24 PM RN PROGRESS NOTE: LOCAL TITLE: CCC: CLINICAL TRIAGE STANDARD TITLE: RN PROGRESS NOTE DATE OF NOTE: JAN 25, 2023@14:24:20 ENTRY DATE: JAN 25, 2023@14:24:20 AUTHOR: MARKY SCHMIDT COSIGNER: URGENCY: STATUS: COMPLETED Patient Demographics Patient Name: ALICE MOBLEY SSN: [id number] Patient Primary Address: [address] [place] [address] [address]
[place] [address] Patient Primary Phone: [phone] Patient : 1935 Patient Age: 87 Current Location: [facility] VSO Call Back Number: [phone] Caller/Recipient Relation to Patient: Other If Other Describe Relation to Patient: Skein Tier Caller Name: Cassandra Nursing Plan and Disposition Other course(s) of action Generated msg to PACT/Provider Clinical Contact Center Codes Clinic/Location: 3 [facility] PHONE CCC RN Notes Notes & Information: Cassandra [facility]SO from [facility] calling to reschedule PACT appointment for . Please see January 18 triage note for details. 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 Unable to reschedule in recommended time frame per central aisle cashier. FOrwarding to PACT for follow up and reschedule. Cassandra can be reached at [phone]. /baltazar/ Marky Schmidt RN, BA, JOSÉ VISN 23 Daytime merchant seaman Signed: 01/25/2023 14:24 MARKY SCHMIDT [facility]
--- OUTSIDE RECORDS SUMMARY | 2023-06-24 08:42 | XMS_ITS | Encounter Summary ---
Author Name [facility] Organization [facility] Address [address] [place] [address] Insurance Providers: All historical and current Section Date Range: From patient's date of to the date document was created. This section includes the names of all active insurance providers for the patient. Insurance Provider Type of Coverage Plan Name Start of Policy Coverage End of Policy Coverage Group Number Member ID Insurance Provider's Telephone Number Policy Talavera's Name Patient's Relationship to Policy Talavera [facility] ([id number]) PRESCRIPT ION GEHA May 30, 2005 [id number] [phone] SONIA MOBLEY PATIENT GEHA (SECONDARY ) PREFERRED PROVIDER ORGANIZAT ION (PPO) GEHA A&B PRIMA RY May 30, 2005 [id number] SONIA MOBLEY PATIENT GEHA (SECONDARY ) PREFERRED PROVIDER ORGANIZAT ION (PPO) GEHA A/B PRIMA RY May 30, 2005 [id number] SONIA MOLBEY PATIENT [facility] PREFERRED PROVIDER ORGANIZAT ION (PPO) DO NOT USE May 30, 2005 [id number] [phone] TONI BRITO PATIENT MEDICARE (WNR) MEDICARE (M) PART A Jan 29, 2000 PART A [id number] [phone] SONIA MOBLEY PATIENT MEDICARE (WNR) MEDICARE (M) PART B Jan 29, 2000 PART B [id number] [phone] SONIA MOBLEY PATIENT Selected Encounter This section includes the information on record at [facility] for the Encounter. Date/Time Encounter Type Encounter Description Reason Provider Source Feb 10, 2023 08:30 AM OFFICE O/P EST MOD 30-39 MIN COMP [facility]OM[facility] ICD-10-CM 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 TESSA LEBRON May Encounter Template Text not used by [facility] Assessments - Encounter Diagnoses This section includes the primary and secondary diagnoses documented for the Encounter. Date/Time Primary/Secondary Diagnosis Diagnosis Name Provider Source Feb 10, 2023 12:26 PM PRIMARY Blepharospasm [facility] Feb 10, 2023 12:26 PM SECONDARY Essential (primary) hypertension [facility] Plan of Treatment: Future Appointments (+ 6 months) and Future Tests (+/- 45 days) The Plan of Treatment section includes future care activities for the patient [facility] This section includes [...] 15, 2023 10:00 AM AMBULATORY - NONE [facility] Mar 15, 2023 11:00 AM [facility] May 03, 2023 08:30 AM [facility] May 03, 2023 09:00 AM AMBULATORY - SURGERY [facility] May 09, 2023 03:00 PM [facility] May 18, 2023 09:15 AM AMBULATORY - SURGERY [facility] May 24, 2023 05:00 PM [facility]UL[facility]ORY - [facility] May 31, 2023 01:00 PM AMBULATORY - SURGERY [facility] Jun 28, 2023 10:40 AM AMBULATORY - SURGERY [facility] Aug 09, 2023 11:00 AM [facility] Vital Signs: All taken on the encounter date This section contains inpatient and outpatient Vital Signs collected on the date of the Encounter. Date/Time Temperature Pulse Blood Pressure Respiratory Rate SP02 Pain Height Weight Body Mass Index Source Feb 10, 2023 08:33 AM 70 /min 159/78 mm[Hg] 18 /min 98 % 4 61 in 162 lb 31 [facility] Feb 10, 2023 08:04 AM 147/73 mm[Hg] [facility] Social History: Smoking Status (Most current) and Tobacco Use (All prior to encounter date) This section includes the most current, and the historical, smoking and tobacco- related health factors from the [facility] where the Encounter took place. Current Smoking Status This section includes the most current smoking, or tobacco-related health factor, from the [facility] facility where the Encounter took place. Date/Time Current Smoking Status Comment Facil ity October 18, 2022 10:00 AM VA-TOBACCO NEVER USED [facility] Tobacco Use History This section includes a history of the smoking, or tobacco-related health factors, that were collected on or before the date of the Encounter. The data comes from the [facility] facility where the Encounter took place. Date/Time Smoking Status/Tobacco Use Comment F manoj September 28, 2021 09:30 AM VA-TOBACCO NEVER USED [facility] Nov 10, 2020 08:30 AM [facility]-TOBACCO NEVER USED [facility] Encounter Notes: All associated encounter notes This section contains the clinical notes associated to the Encounter. Date/Time Encounter Note(s) Provider Source Feb 10, 2023 09:10 AM ADMINISTRATIVE NOT E: LOCAL TITLE: AFTER VISIT SUMMARY NOTE STANDARD TITLE: ADMINISTRATIVE NOTE DICT DATE: FEB 10, 2023@09:10:37 ENTRY DATE: FEB 10, 2023@09:10:37 DICTATED BY: TESSA LEBRON EXP COSIGNER: URGENCY: STATUS: COMPLETED The patient was provided with a copy of an after-visit summary at the conclusion of the visit. A copy of the after-visit summary provided to the patient is available in [employer]. SCANNED DOCUMENT SIGNATURE NOT REQUIRED Electronically Filed: 02/10/2023 by: Tessa Lebron MD Staff Physician TESSA LEBRON [facility] Feb 10, 2023 08:37 AM [facility]IENT NOTE: LOCAL TITLE: [facility] N[facility] NOTE STANDARD TITLE: [facility] NOTE DATE OF NOTE: FEB 10, 2023@08:37 ENTRY DATE: FEB 10, 2023@08:37:14 AUTHOR: JOANNE CHAN EXP COSIGNER: URGENCY: STATUS: COMPLETED TYPE OF VISIT: Appointment Check In Type of appointment: In-person appointment REASON FOR VISIT: left side facial twitching ALLERGIES: Patient has answered NKA VITAL SIGNS: Blood Pressure: 159/78 (02/10/2023 08:33)b/p recheck 147/73 pt is asymtomatic. Denies chest pain or heart palpitation. Pulse: 70 (02/10/2023 08:33) Respiration: 18 (02/10/2023 08:33) Temperature: 97.5 F [36.4 C] (08/09/2022 09:27) Weight: 162 lb [73.48 kg] (02/10/2023 08:33) Height: 61 in [154.9 cm] (02/10/2023 08:33) BMI: 30.7 O2 Sat: 98% (02/10/2023 08:33) Pain: 4 (02/10/2023 08:33) PAIN SCREEN: Patient is not having significant pain that they wish to discuss with their provider today. MEDICATION Active Outpatient Medications (including Supplies): AMLODIPINE BESYLATE 5MG TAB TAKE ONE TABLET BY MOUTH EVERY ACTIVE DAY FOR BLOOD PRESSURE ANASTROZOLE 1MG TAB TAKE ONE TABLET BY MOUTH EVERY DAY FOR ACTIVE BREAST CANCER ASPIRIN 81MG CHEW TAB CHEW ONE TABLET BY MOUTH EVERY DAY ACTIVE ATORVASTATIN CALCIUM 80MG TAB TAKE ONE TABLET BY MOUTH ACTIVE EVERY DAY FOR CHOLESTEROL CALCIUM 250MG/VITAMIN D 125 UNT TAB TAKE 2 TABLETS BY ACTIVE MOUTH EVERY DAY CHOLECALCIF 25MCG (D3-1,000UNIT) TAB TAKE TWO TABLETS BY HOLD MOUTH EVERY DAY HYDROCHLOROTHIAZIDE 12.5MG TAB TAKE ONE TABLET BY MOUTH ACTIVE EVERY DAY FOR BLOOD PRESSURE LISINOPRIL 40MG TAB TAKE ONE TABLET BY MOUTH EVERY DAY FOR ACTIVE BLOOD PRESSURE METOPROLOL SUCCINATE 50MG SA TAB TAKE ONE TABLET BY MOUTH ACTIVE AT BEDTIME FOR BLOOD PRESSURE NITROFURANTOIN MONO/MACRO 100MG SA CAP TAKE ONE CAPSULE BY ACTIVE MOUTH EVERY DAY DIRECTED TO PREVENT URINARY TRACT INFECTION AFTER SWIMMING OLOPATADINE HCL 0.1% OPH SOLN INSTILL 1 DROP IN BOTH EYES ACTIVE TWICE A DAY OMEPRAZOLE 20MG EC CAP TAKE ONE CAPSULE BY MOUTH TWICE A ACTIVE WEEK ON AN EMPTY STOMACH, AT LEAST 30 MINUTES PRIOR TO A MEAL POISE PAD,MODERATE ABSORBENCY USE 1 PAD DIRECTED ACTIVE Over the Counter/Herbal Medications: The patient states that they take some outside medications and/or herbals. /baltazar/ JOANNE CHAN LPN LPN Signed: 02/10/2023 08:40 JOANNE CHAN [facility] Feb 09, 2023 03:29 PM [facility] OUTP ATIENT E & M NOTE: LOCAL TITLE: [facility] NOTE STANDARD TITLE: [facility] OUTPATIENT E & M NOTE DATE OF NOTE: FEB 09, 2023@15:29 ENTRY DATE: FEB 09, 2023@15:29:22 AUTHOR: TESSA LEBRON COSIGNER: URGENCY: STATUS: COMPLETED Nurse's note reviewed. 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 Calcium channel blockers are on the list of medications that can be associated with blepharospasm. She was started on amlodipine mid 2021, around the time she thinks this started. Will have her stop the amlodipine, increase HCTZ for BP control, and f/u in a month for repeat BP check, BMP. If sx not improved, would then consider referral to Neurology given the degree of distress this causes her. [place] comfortable with this plan. 2. HTN - suboptimal control. Stopping amlodipine due to #1, so will increase HCTZ to 25mg, with f/u as outlined above. HPI: 87year old woman here c/o left facial twitching, started about a year ago she thinks. She dates it to getting new glasses. Happens several times a day at least, lasts a few seconds. she finds it very botehrsome. Was seen here in early December about same. Not getting worse. Wonders what is possible cause. No headaches, no other new neurological sx. Active problems - Computerized Problem List is [...] - 2011 4. Polymyalgia rheumatica 5. Prediabetes ([facility] [id number]) 6. 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 - pT1c, N0, M0-Stage 1A - s/p lumpectomy 06/2014, radiation therapy - On Anastrazole since 07/2014 7. History of cholecystectomy 8. History of total knee arthroplasty - R knee 9. Peripheral vascular disease - s/p stenting Femoral artery, 2008 10. Sleep Apnea ([facility] [id number]) 11. Benign essential hypertension 12. Thoracic aortic aneurysm without rupture Active and Recently Outpatient Medications (including Supplies): Active Outpatient Medications Status 1) AMLODIPINE BESYLATE 5MG TAB TAKE ONE TABLET BY MOUTH ACTIVE EVERY DAY FOR BLOOD PRESSURE 2) ANASTROZOLE [...] LEAST 30 MINUTES PRIOR TO A MEAL 13) POISE PAD,MODERATE ABSORBENCY USE 1 PAD ACTIVE DIRECTED VS - Vital Signs Temperature: 97.5 F [36.4 C] (08/09/2022 09:27) Blood Pressure: 159/78 (02/10/2023 08:33) Pulse: 70 (02/10/2023 08:33) Respiration: 18 (02/10/2023 08:33) Pain: 4 (02/10/2023 08:33) Pulse Oximetry: 98% (02/10/2023 08:33) Measurement DT WEIGHT LB(KG)[BMI] 01/07/2023 10:04 162.1(73.53)[31*] 10/18/2022 10:05 163.3(74.07)[31*] 08/09/2022 09:27 Refused General: Well appearing, NAD, alert and appropriate HEENT: PERRL, TMs clear, nonicteric. Oropharynx clear. 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 GAit normal Collection DT Spec WBC HGB HCT PLT MCV 03/16/2022 09:20 BLOOD 4.96 13.5 39.9 200 85.8 SLT - Lab Tests Selected Collection DT Specimen Test Name Result Units Ref Range 06/29/2022 11:21 PLASMA GLUCOSE 94 mg/dL 70 - 100 06/29/2022 11:21 PLASMA SODIUM 141 mmol/L 136 - 145 06/29/2022 11:21 PLASMA POTASSIUM 3.9 mmol/L 3.5 - 5.1 06/29/2022 11:21 PLASMA CHLORIDE 108 H mmol/L 98 - 107 06/29/2022 11:21 PLASMA CO2 27 mmol/L 22 - 29 06/29/2022 11:21 PLASMA ANION GAP 6 mmol/L 5 - 15 06/29/2022 11:21 PLASMA UREA NITROGEN 15 mg/dL 7 - 20 06/29/2022 11:21 PLASMA CREATININE 0.6 mg/dL 0.5 - 1.0 06/29/2022 11:21 PLASMA CALCIUM 9.2 mg/dL 8.4 - 10.2 Patient Education of Treatment Plan: Patient indicates readiness to learn, verbalizes understanding, agreement and satisfaction with the treatment plan. Denies further questions. Education on New Medication: Patient indicated readiness to learn and has been instructed on action, dose, frequency and side effects of the following medication Verbalizes understanding of instructions. Medication Reconciliation: Education Evaluations *Was medication education provided for NEW medications or CHANGES to medications? (including medication name, dose, route, reason for use, and potential side effects). Yes. Verbal education was provided to patient/caregiver and patient/caregiver verbalized understanding. TERATOGENIC MED & CONTRACEPTION REVIEW (Optional)... MEDICATION RECONCILIATION List Given: An updated medication list was provided to the patient/caregiver. Active and Recently Outpatient Medications (including Supplies): Issue Date Status Last Fill Active Outpatient Medications Refills Expiration 1) ANASTROZOLE 1MG TAB Qty: 90 for 90 days ACTIVE Issu:02-10-23 Sig: TAKE ONE TABLET BY MOUTH EVERY Refills: 3 Last:02-10-23 DAY FOR BREAST CANCER Expr:02-11-24 2) ASPIRIN 81MG CHEW TAB Qty: 108 for 90 ACTIVE Issu:03-16-22 days Sig: CHEW ONE TABLET BY MOUTH Refills: 3 Last:06-29-22 EVERY DAY Expr:03-17-23 3) ATORVASTATIN CALCIUM 80MG TAB Qty: 90 ACTIVE Issu:02-10-23 for 90 days Sig: TAKE ONE TABLET BY Refills: 3 Last:02-10-23 MOUTH EVERY DAY FOR CHOLESTEROL Expr:02-11-24 4) CALCIUM 250MG/VITAMIN D 125 UNT TAB ACTIVE Issu:03-16-22 Qty: 200 for 90 days Sig: TAKE 2 Refills: 1 Last:02-10-23 TABLETS BY MOUTH EVERY DAY Expr:03-17-23 5) CHOLECALCIF 25MCG (D3-1,000UNIT) TAB HOLD Issu:03-16-22 Qty: 200 for 90 days Sig: TAKE TWO Refills: 3 TABLETS BY MOUTH EVERY DAY Expr:03-17-23 6) HYDROCHLOROTHIAZIDE 25MG TAB Qty: 90 ACTIVE Issu:02-10-23 for 90 days Sig: TAKE ONE TABLET BY Refills: 3 Last:02-10-23 MOUTH EVERY DAY FOR BLOOD PRESSURE Expr:02-11-24 7) LISINOPRIL 40MG TAB Qty: 90 for 90 days ACTIVE Issu:02-10-23 Sig: TAKE ONE TABLET BY MOUTH EVERY Refills: 3 Last:02-10-23 DAY FOR BLOOD PRESSURE Expr:02-11-24 8) METOPROLOL SUCCINATE 50MG SA TAB Qty: ACTIVE Issu:02-10-23 90 for 90 days Sig: TAKE ONE TABLET Refills: 3 Last:02-10-23 BY MOUTH AT BEDTIME FOR BLOOD PRESSURE Expr:02-11-24 9) NITROFURANTOIN MONO/MACRO 100MG SA CAP ACTIVE Issu:10-11-22 Qty: 15 for 30 days Sig: TAKE ONE Refills: 3 Last:10-12-22 CAPSULE BY MOUTH EVERY DAY DIRECTED Expr:10-12-23 TO PREVENT URINARY TRACT INFECTION AFTER SWIMMING 10) OLOPATADINE HCL 0.1% OPH SOLN Qty: 15 ACTIVE Issu:03-16-22 for 75 days Sig: INSTILL 1 DROP IN Refills: 2 Last:11-09-22 BOTH EYES TWICE A DAY Expr:03-17-23 11) OMEPRAZOLE 20MG EC CAP Qty: 26 for 90 ACTIVE Issu:03-16-22 days Sig: TAKE ONE CAPSULE BY MOUTH Refills: 2 Last:11-09-22 TWICE A WEEK ON AN EMPTY STOMACH, AT Expr:03-17-23 LEAST 30 MINUTES PRIOR TO A MEAL 12) POISE PAD,MODERATE ABSORBENCY Qty: 120 ACTIVE Issu:11-02-22 for 30 days Sig: USE 1 PAD Refills: 3 Last:11-04-22 DIRECTED Expr:11-03-23 Issue Date Status Last Fill Inactive Outpatient Medications Refills Expiration 1) ALENDRONATE 35MG TAB Qty: 12 for 84 DISCONTINUED Issu:02-22-22 days Sig: TAKE ONE TABLET BY MOUTH Refills: 3 Last:02-24-22 EVERY WEEK TAKE FIRST THING IN THE Expr:02-23-23 MORNING WITH WATER ONLY. AFTER TAKING, DO NOT EAT OR DRINK FOR 30 MINUTES. REMAIN UPRIGHT FOR 30 MINUTES. 2) AMLODIPINE BESYLATE 2.5MG TAB Qty: 30 DISCONTINUED Issu:08-10-22 for 30 days Sig: TAKE ONE TABLET BY Refills: 9 Last:01-07-23 MOUTH EVERY DAY FOR BLOOD PRESSURE Expr:08-11-23 3) AMLODIPINE BESYLATE 2.5MG TAB Qty: 90 DISCONTINUED Issu:04-19-22 for 90 days Sig: TAKE ONE TABLET BY (EDIT) Last:07-10-22 MOUTH EVERY DAY FOR BLOOD PRESSURE Refills: 2 Expr:04-20-23 4) AMLODIPINE BESYLATE 5MG TAB Qty: 90 for DISCONTINUED Issu:01-24-23 90 days Sig: TAKE ONE TABLET BY MOUTH Refills: 3 Last:01-24-23 EVERY DAY FOR BLOOD PRESSURE Expr:01-25-24 5) ANASTROZOLE 1MG TAB Qty: 30 for 30 days DISCONTINUED Issu:08-10-22 Sig: TAKE ONE TABLET BY MOUTH EVERY (EDIT) Last:01-07-23 DAY FOR BREAST CANCER Refills: 9 Expr:08-11-23 6) ANASTROZOLE 1MG TAB Qty: 90 for 90 days DISCONTINUED Issu:03-16-22 Sig: TAKE ONE TABLET BY MOUTH EVERY (EDIT) Last:06-29-22 DAY Refills: 3 Expr:03-17-23 7) ATORVASTATIN CALCIUM 80MG TAB Qty: 30 DISCONTINUED Issu:08-10-22 for 30 days Sig: TAKE ONE TABLET BY (EDIT) Last:01-07-23 MOUTH EVERY DAY FOR CHOLESTEROL Refills: 8 Expr:08-11-23 8) ATORVASTATIN CALCIUM 80MG TAB Qty: 90 DISCONTINUED Issu:03-16-22 for 90 days Sig: TAKE ONE TABLET BY (EDIT) Last:03-19-22 MOUTH EVERY DAY Refills: 3 Expr:03-17-23 9) HYDROCHLOROTHIAZIDE 12.5MG TAB Qty: 30 DISCONTINUED Issu:08-10-22 for 30 days Sig: TAKE ONE TABLET BY (EDIT) Last:01-07-23 MOUTH EVERY DAY FOR BLOOD PRESSURE Refills: 9 Expr:08-11-23 10) HYDROCHLOROTHIAZIDE 25MG TAB Qty: 45 DISCONTINUED Issu:03-16-22 for 90 days Sig: TAKE ONE-HALF TABLET (EDIT) Last:06-29-22 BY MOUTH EVERY DAY Refills: 3 Expr:03-17-23 11) LISINOPRIL 40MG TAB Qty: 30 for 30 days DISCONTINUED Issu:08-10-22 Sig: TAKE ONE TABLET BY MOUTH EVERY (EDIT) Last:01-07-23 DAY FOR BLOOD PRESSURE Refills: 9 Expr:08-11-23 12) LISINOPRIL 40MG TAB Qty: 45 for 90 days DISCONTINUED Issu:03-16-22 Sig: TAKE ONE-HALF TABLET BY MOUTH Refills: 3 Last:03-16-22 EVERY DAY Expr:03-17-23 13) METOPROLOL SUCCINATE 50MG SA TAB Qty: DISCONTINUED Issu:08-10-22 30 for 30 days Sig: TAKE ONE TABLET (EDIT) Last:01-07-23 BY MOUTH AT BEDTIME FOR BLOOD PRESSURE Refills: 9 Expr:08-11-23 14) METOPROLOL SUCCINATE 50MG SA TAB Qty: DISCONTINUED Issu:06-29-22 90 for 90 days Sig: TAKE ONE TABLET (EDIT) Last:06-29-22 BY MOUTH AT BEDTIME Refills: 3 Expr:06-30-23 15) METOPROLOL SUCCINATE 50MG SA TAB Qty: DISCONTINUED Issu:03-16-22 45 for 90 days Sig: TAKE ONE-HALF (EDIT) Last:06-29-22 TABLET BY MOUTH AT BEDTIME Refills: 3 Expr:03-17-23 27 Total Medications /es/ Tessa Lebron MD Staff Physician Signed: 02/10/2023 12:26 TESSA LEBRON [facility]
--- OUTSIDE RECORDS SUMMARY | 2023-06-24 08:42 | XMS_ITS | Encounter Summary ---
Author Name Department of [facility] Organization Department of [facility] Affairs Address [address] [place] [address] Insurance Providers: All historical and current Section Date Range: From patient's date of to the date document was created. This section includes the names of all active insurance providers for the patient. Insurance Provider Type of Coverage Plan Name Start of Policy Coverage End of Policy Coverage Group Number Member ID Insurance Provider's Telephone Number Policy Talavera's Name Patient's Relationship to Policy Talavera [facility] ([id number]) PRESCRIPT ION GEHA May 30, 2005 [id number] [phone] SONIA MOBLEY PATIENT GEHA (SECONDARY ) PREFERRED PROVIDER ORGANIZAT ION (PPO) GEHA A/B PRIMA RY May 30, 2005 [id number] SONIA MOBLEY PATIENT GEHA (SECONDARY ) PREFERRED PROVIDER ORGANIZAT ION (PPO) GEHA A&B PRIMA RY May 30, 2005 [id number] [phone] SONIA MOBLEY PATIENT [facility] PREFERRED PROVIDER ORGANIZAT ION (PPO) DO NOT USE May 30, 2005 [id number] [phone] TONI BRITO PATIENT MEDICARE (WNR) MEDICARE (M) PART A Jan 29, 2000 PART A [id number] [phone] SONIA MOBLEY PATIENT MEDICARE (WNR) MEDICARE (M) PART B Jan 29, 2000 PART B [id number] [phone] SONIA MOBLEY PATIENT Selected Encounter This section includes the information on record at [place] for the Encounter. Date/Time Encounter Type Encounter Description Reason Pro vider Source Jan 13, 2023 11:13 AM Outpatient Encounter [facility] Encounter Template Text not used by [place] Plan of Treatment: Future Appointments (+ 6 months) and Future Tests (+/- 45 days) The Plan of Treatment section includes future care activities for the patient from all [place] [facility]. This section includes future appointments and future orders which are active, pending or scheduled. Future Appointments This section includes appointments that were scheduled to occur 6 months from the date of the Encounter, up to a maximum of 20 appointments. The data comes from all [place] treatment facilities. Appointment Date/Time Appointment Type Appointme nt Facility Name Feb 10, 2023 08:30 AM AMBULATORY - MEDICINE [facility] Mar 15, 2023 10:00 AM AMBULATORY - NONE [facility] Mar 15, 2023 11:00 AM AMBULATORY - MEDICINE [facility] May 03, 2023 08:30 AM AMBULATORY - REHAB MEDICIN [facility] May 03, 2023 09:00 AM AMBULATORY - SURGERY [facility] May 09, 2023 03:00 PM AMBULATORY - REHAB MEDICIN [facility] May 18, 2023 09:15 AM AMBULATORY - SURGERY [facility] May 24, 2023 05:00 PM AMBULATORY - REHAB MEDICIN [facility] May 31, 2023 01:00 PM AMBULATORY - SURGERY [facility] Jun 28, 2023 10:40 AM AMBULATORY - SURGERY [facility] Social History: Smoking Status (Most current) and Tobacco Use (All prior to encounter date) This section includes the most current, and the historical, smoking and tobacco- related health factors from the [facility] where the Encounter took place. Current Smoking Status This section includes the most current smoking, or tobacco-related health factor, from the [place] facility where the Encounter took place. Date/Time Current Smoking Status Comment Robyn ity October 18, 2022 10:00 AM [place]-TOBACCO NEVER USED [facility] Tobacco Use History This section includes a history of the smoking, or tobacco-related health factors, that were collected on or before the date of the Encounter. The data comes from the [place] facility where the Encounter took place. Date/Time Smoking Status/Tobacco Use Comment F acnelia September 28, 2021 09:30 AM [place]-TOBACCO NEVER USED [facility] Nov 10, 2020 08:30 AM VA-TOBACCO NEVER USED [facility] Encounter Notes: All associated encounter notes This section contains the clinical notes associated to the Encounter. Date/Time Encounter Note(s) Provider Source Jan 13, 2023 11:13 AM REPORT OF CONTACT: LOCAL TITLE: APPOINTMENT SCHEDULING NOTE STANDARD TITLE: REPORT OF CONTACT DATE OF NOTE: JAN 13, 2023@11:13 ENTRY DATE: JAN 13, 2023@11:13:36 AUTHOR: TAMI TREVINO EXP COSIGNER: URGENCY: STATUS: COMPLETED Attempted to schedule Return to clinic (RTC) Contact attempt made to 1st attempt Telephone 2nd attempt Letter Disposition order request after Dec Left message on voice mail to call back to this number [phone] Other: Please schedule with any provider ([facility]) while PCP is on leave If calls back, schedule appt for: Return to [facility] on or around ( Feb 09, 2023 )for a total of 1 appointment(s)ongoing facial twitch- please call vet to schedule /es/ TAMI TREVINO Advanced MSA Signed: 01/13/2023 11:14 TAMI TREVINO [facility]
--- OUTSIDE RECORDS SUMMARY | 2023-06-24 08:43 | XMS_ITS | Encounter Summary ---
Author Name Department of [facility] Organization Department of Veter[facility] Address [address] [place] [address] Insurance Providers: All historical and current Section Date Range: From patient's date of to the date document was created. This section includes the names of all active insurance providers for the patient. Insurance Provider Type of Coverage Plan Name Start of Policy Coverage End of Policy Coverage Group Number Member ID Insurance Provider's Telephone Number Policy Talavera's Name Patient's Relationship to Policy Talavera [facility] ([id number]) PRESCRIPT ION GEHA May 30, 2005 [id number] [phone] SONIA MOBLEY PATIENT GEHA (SECONDARY ) PREFERRED PROVIDER ORGANIZAT ION (PPO) GEHA A/B PRIMA RY May 30, 2005 [id number] SONIA MOBLEY PATIENT GEHA (SECONDARY ) PREFERRED PROVIDER ORGANIZAT ION (PPO) GEHA A&B PRIMA RY May 30, 2005 [id number] SONIA MOBLEY PATIENT [facility] PREFERRED PROVIDER ORGANIZAT ION (PPO) DO NOT USE May 30, 2005 [id number] TONI BRITO PATIENT MEDICARE (WNR) MEDICARE (M) PART A Jan 29, 2000 PART A [id number] [phone] SONIA MOBLEY PATIENT MEDICARE (WNR) MEDICARE (M) PART B Jan 29, 2000 PART B [id number] SONIA MOBLEY PATIENT Selected Encounter This section includes the information on record at [place] for the Encounter. Date/Time Encounter Type Encounter Description Reason Provider Source Mar 16, 2023 02:58 PM Outpatient Encounter EVENT (HISTORICAL) ALICIA KAUFMAN May Encounter Template Text not used by [place] Plan of Treatment: Future Appointments (+ 6 months) and Future Tests (+/- 45 days) The Plan of Treatment section includes future care activities for the patient from all [place] [facility]. This section includes future appointments and future orders which are active, pending or scheduled. Future Appointments This section includes appointments that were scheduled to occur 6 months from the date of the Encounter, up to a maximum of 20 appointments. The data comes from all [place] treatment facilities. Appointment Date/Time Appointment Type Appointme nt Facility Name May 03, 2023 08:30 AM [facility] May 03, 2023 09:00 AM AMBULATORY - SURGERY [facility] May 09, 2023 03:00 PM AMBULATORY - REHAB [facility] May 18, 2023 09:15 AM AMBULATORY - SURGERY [facility] May 24, 2023 05:00 PM AMBULATORY - REHAB [facility] May 31, 2023 01:00 PM AMBULATORY - SURGERY [facility] Jun 28, 2023 10:40 AM AMBULATORY - SURGERY [facility] Aug 09, 2023 11:00 AM AMBULATORY - REHAB [facility] Lab Results: +/- 30 days of the encounter This section includes the Chemistry and Hematology Lab Results on record with [place] for the patient. Radiology Reports and Pathology Reports are provided separately, in subsequent sections. Lab Results This section contains the Chemistry/Hematology Results that were resulted 30 days before or 30 daysafter the date of the Encounter. Date/Time Source Result Type Result - Unit Interpretation Reference Range Comment Mar 15, 2023 08:22 AM [facility] BASIC METABOLIC PANEL+MG Specimen Type: PLASMA No comment entered. Ordering Provider: MARIMAR LEBRON Report Released Date/Time: Feb 10, 2023 09:08 AM Reporting Lab: [facility] [id number] Performing Lab: [facility] [address] CREATININE 0.6 0.5-1.0 UREA NITROGEN 9 7-20 GLUCOSE 106 H 70-100 SODIUM 138 136-145 POTASSIUM 3.4 L 3.5-5.1 CHLORIDE 103 98-107 CO2 28 22-29 CALCIUM 9.3 8.4-10.2 MAGNESIUM 1.8 1.6-2.6 ANION GAP 7 5-15 .CREAT EGFR(CKD-EPI ) 86 >60 Mar 15, 2023 08:22 AM [facility] TSH W/REFLEX TO FREE T4 Specimen Type: PLASMA No comment entered. Ordering Provider: DOMINIC TREJO Report Released Date/Time: Mar 16, 2022 11:04 AM Reporting Lab: [facility] [id number] Performing Lab: [facility] [address] TSH 0.61 0.35-4.94 Mar 15, 2023 08:22 AM [facility] VIT D 25-OH,TOTAL Specimen Type: SERUM No comment entered. Ordering Provider: DOMINIC TREJO Report Released Date/Time: Mar 16, 2022 11:04 AM Reporting Lab: [facility] [address] Performing Lab: [facility] [address] VIT D 25-OH,TOTAL 30 12-50 Mar 15, 2023 08:22 AM [facility] CBC Specimen Type: BLOOD No comment entered. Ordering Provider: DOMINIC TREJO Report Released Date/Time: Mar 16, 2022 11:04 AM Reporting Lab: [facility] [address] Performing Lab: [facility] [address] WBC 5.71 4.0-11.0 RBC 4.77 4.0-5.4 HGB 14.2 11.5-16 HCT 40.8 34.5-48 MCV 85.5 80-100 MCH 29.8 27-33 MCHC 34.8 32.0-37.5 PLT 187 150-400 MPV 9.3 7.4-10.4 RDW 13.6 11.5-14.5 Mar 15, 2023 08:22 AM [facility] BASIC METABOLIC PANEL+MG Specimen Type: PLASMA No comment entered. Ordering Provider: DOMINIC TREJO Report Released Date/Time: Mar 16, 2022 11:04 AM Reporting Lab: [facility] [address] Performing Lab: [facility] Mar 15, 2023 08:22 AM [facility] LIPID PANEL,NON-FASTING Specimen Type: PLASMA No comment entered. Ordering Provider: DOMINIC TREJO Report Released Date/Time: Mar 16, 2022 11:04 AM Reporting Lab: [facility] [address] Performing Lab: [facility] Mar 15, 2023 08:22 AM [facility] HEMOGLOBIN A1C Specimen Type: BLOOD Comment: Values [...] Mar 16, 2022 11:04 AM Reporting Lab: [facility] [address] Performing Lab: [facility] [address] HEMOGLOBIN A1C 6.0 4.0-6.0 Social History: Smoking Status (Most current) and Tobacco Use (All prior to encounter date) This section includes the most current, and the historical, smoking and tobacco- related health factors from the [place] facility where the Encounter took place. Current Smoking Status This section includes the most current smoking, or tobacco-related health factor, from the [place] facility where the Encounter took place. Date/Time Current Smoking Status Comment Robyn ity October 18, 2022 10:00 AM [facility] Tobacco Use History This section includes a history of the smoking, or tobacco-related health factors, that were collected on or before the date of the Encounter. The data comes from the [place] facility where the Encounter took place. Date/Time Smoking Status/Tobacco Use Comment F acility September 28, 2021 09:30 AM [place]-TOBACCO NEVER USED [facility] Nov 10, 2020 08:30 AM [place]-TOBACCO NEVER USED [facility] Pathology Reports: +/- 30 days of the [...] the Encounter. The data comes from all [place] treatment facilities. Date/Time Pathology Report Provider Source Mar 16, 2023 02:58 PM LR SURGICAL PATHOL OGY REPORT: LOCAL TITLE: LR SURGICAL PATHOLOGY REPORT STANDARD TITLE: PATHOLOGY REPORT DATE OF NOTE: MAR 16, 2023@14:58:43 ENTRY DATE: MAR 16, 2023@14:58:43 AUTHOR: ALICIA KAUFMAN EXP COSIGNER: URGENCY: STATUS: COMPLETED $APHDR Reporting Lab: [facility] [CLIA# [id number]] [place] [address] - - - - - - - [...] - PATHOLOGY REPORT Accession No. [id number] - - - - - - - [...] - PATHOLOGY REPORT Accession No. [id number] - - - - - - - [...] MD STAFF PATHOLOGIST, PATHOLOGY & LABORATORY MED [facility] Signed Mar 16, 2023@14:58 Performing Laboratory: Surgical Pathology Report Performed By: [facility] [CLIA# [id number]] [place] [address] $FTR - - - - - - - - - - - - - - - - - - - - - - - - - - - - - - - - - - - - - - - - (End of report) ALICIA KAUFMAN MD [facility] Date Mar 16, 2023 - - - - - - - - - - - - - - - - - - - - - - - - - - - - - - - - - - - - - - - - ALICE MOBLEY STANDARD FORM 515 ID:[id number] SEX:F :1935 AGE: 88 LOC:[id number] PCP: Dominic Ely MD /baltazar/ ALICIA KAUFMAN MD STAFF PATHOLOGIST, PATHOLOGY & LABORATORY MED [facility] Signed: 03/16/2023 14:58 ALICIA KAUFMAN [facility] Encounter Notes: All associated encounter notes This section contains the clinical notes associated to the Encounter. Date/Time Encounter Note(s) Provider Source Mar 16, 2023 02:58 PM PATHOLOGY REPORT: LOCAL TITLE: LR SURGICAL PATHOLOGY REPORT STANDARD TITLE: PATHOLOGY REPORT DATE OF NOTE: MAR 16, 2023@14:58:43 ENTRY DATE: MAR 16, 2023@14:58:43 AUTHOR: ALICIA KAUFMAN EXP COSIGNER: URGENCY: STATUS: COMPLETED $APHDR Reporting Lab: [facility] [CLIA# [id number]] [place] [address] - - - - - - - [...] - PATHOLOGY REPORT Accession No. [id number] - - - - - - - [...] - PATHOLOGY REPORT Accession No. [id number] - - - - - - - [...] cm. The specimen is inked. CE. (D) [facility]/cc MICROSCOPIC DESCRIPTION: Microscopic examination performed. 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, incompletely removed /es/ ALICIA KAUFMAN MD STAFF PATHOLOGIST, PATHOLOGY & LABORATORY MED [facility] Signed Mar 16, 2023@14:58 Performing Laboratory: Surgical Pathology Report Performed By: [facility] [CLIA# [id number]] [place] [address] $FTR - - - - - - [...] - - ALICE MOBLEY STANDARD FORM 515 ID:[id number] SEX:F :1935 AGE: 88 LOC:[id number] PCP: Dominic Ely MD /baltazar/ ALICIA KAUFMAN MD STAFF PATHOLOGIST, PATHOLOGY & LABORATORY MED [facility] Signed: 03/16/2023 14:58 ALICIA KAUFMAN [facility]
--- OUTSIDE RECORDS SUMMARY | 2023-06-24 08:43 | XMS_ITS | Encounter Summary ---
Author Name Department of [facility] Organization [facility] Address [address] [place] [address] Insurance Providers: All historical and current Section [...] to Policy Talavera [facility] ([id number]) PRESCRIPT ION GEHA May 30, 2005 [id number] SONIA MOBLEY PATIENT GEHA (SECONDARY ) PREFERRED PROVIDER ORGANIZAT ION (PPO) GEHA A&B PRIMA RY May 30, 2005 [id number] [phone] SONIA MOBLEY PATIENT GEHA (SECONDARY ) PREFERRED PROVIDER ORGANIZAT ION (PPO) GEHA A/B PRIMA RY May 30, 2005 [id number] SONIA MOBLEY PATIENT [facility] PREFERRED PROVIDER ORGANIZAT ION (PPO) DO NOT USE May 30, 2005 [id number] TONI BRITO PATIENT MEDICARE (WNR) MEDICARE (M) PART A Jan 29, 2000 PART A [id number] [phone] SONIA MOBLEY PATIENT MEDICARE (WNR) MEDICARE (M) PART B Jan 29, 2000 PART B [id number] [phone] SONIA MOBLEY PATIENT Selected Encounter This section includes the information on record at [place] for the Encounter. Date/Time Encounter Type Encounter Description Reason Pro vider Source Mar 03, 2023 12:00 AM Outpatient Encounter EVENT (HISTORICAL) IHE Encounter Template Text not used by [place] Plan of Treatment: Future Appointments (+ 6 months) and Future Tests (+/- 45 days) The Plan of Treatment section includes future care activities for the patient from all [place] [facility]. This section includes future appointments and future orders which are active, pending or scheduled. Future Appointments This section includes appointments that were scheduled to occur 6 months from the date of the Encounter, up to a maximum of 20 appointments. The data comes from all [place] treatment facilities. Appointment Date/Time Appointment Type Appointme nt Facility Name Mar 15, 2023 10:00 AM AMBULATORY - NONE [facility] Mar 15, 2023 11:00 AM AMBULATORY - MEDICINE [facility] May 03, 2023 08:30 AM [facility] May 03, 2023 09:00 AM AMBULATORY - SURGERY [facility] May 09, 2023 03:00 PM AMBULATORY - REHAB MEDICIN [facility] May 18, 2023 09:15 AM AMBULATORY - SURGERY [facility] May 24, 2023 05:00 PM AMBULATORY - REHAB MEDICIN [facility] May 31, 2023 01:00 PM AMBULATORY - SURGERY [facility] Jun 28, 2023 10:40 AM AMBULATORY - SURGERY [facility] Aug 09, 2023 11:00 AM AMBULATORY - REHAB [facility] Lab Results: +/- 30 days of the encounter This section includes the Chemistry and Hematology Lab Results on record with [place] for the patient. Radiology Reports and Pathology Reports are provided separately, in subsequent sections. Lab Results This section contains the Chemistry/Hematology Results that were resulted 30 days before or 30 daysafter the date of the Encounter. Date/Time Source Result Type Result - Unit Interpretation Reference Range Comment Mar 15, 2023 08:22 AM [facility] BASIC METABOLIC PANEL+MG Specimen Type: PLASMA No comment entered. Ordering Provider: MARIMAR LEBRON Report Released Date/Time: Feb 10, 2023 09:08 AM Reporting Lab: [facility] [address] Performing Lab: [facility] [address] CREATININE 0.6 0.5-1.0 UREA NITROGEN 9 7-20 GLUCOSE 106 H 70-100 SODIUM 138 136-145 POTASSIUM 3.4 L 3.5-5.1 CHLORIDE 103 98-107 CO2 28 22-29 CALCIUM 9.3 8.4-10.2 MAGNESIUM 1.8 1.6-2.6 ANION GAP 7 5-15 .CREAT EGFR(CKD-EPI ) 86 >60 Mar 15, 2023 08:22 AM [facility] TSH W/REFLEX TO FREE T4 Specimen Type: PLASMA No comment entered. Ordering Provider: DOMINIC TREJO Report Released Date/Time: Mar 16, 2022 11:04 AM Reporting Lab: [facility] [address] Performing Lab: [facility] [address] TSH 0.61 0.35-4.94 Mar 15, 2023 08:22 AM [facility] VIT D 25-OH,TOTAL Specimen Type: SERUM No comment entered. Ordering Provider: DOMINIC TREJO Report Released Date/Time: Mar 16, 2022 11:04 AM Reporting Lab: [facility] [address] Performing Lab: [facility] [address] VIT D 25-OH,TOTAL 30 12-50 Mar 15, 2023 08:22 AM [facility] CBC Specimen Type: BLOOD No comment entered. Ordering Provider: DOMINIC TREJO Report Released Date/Time: Mar 16, 2022 11:04 AM Reporting Lab: [facility] [address] Performing Lab: [facility] [address] WBC 5.71 4.0-11.0 RBC 4.77 4.0-5.4 HGB 14.2 11.5-16 HCT 40.8 34.5-48 MCV 85.5 80-100 MCH 29.8 27-33 MCHC 34.8 32.0-37.5 PLT 187 150-400 MPV 9.3 7.4-10.4 RDW 13.6 11.5-14.5 Mar 15, 2023 08:22 AM [facility] BASIC METABOLIC PANEL+MG Specimen Type: PLASMA No comment entered. Ordering Provider: DOMINIC TREJO Report Released Date/Time: Mar 16, 2022 11:04 AM Reporting Lab: [facility] [address] Performing Lab: [facility] Mar 15, 2023 08:22 AM [facility] LIPID PANEL,NON-FASTING Specimen Type: PLASMA No comment entered. Ordering Provider: DOMINIC TREJO Report Released Date/Time: Mar 16, 2022 11:04 AM Reporting Lab: [facility] [address] Performing Lab: [facility] Mar 15, 2023 08:22 AM [facility] HEMOGLOBIN A1C Specimen Type: BLOOD Comment: Values [...] Mar 16, 2022 11:04 AM Reporting Lab: [facility] [address] Performing Lab: [facility] [address] HEMOGLOBIN A1C 6.0 4.0-6.0 Immunizations: All administered on the encounter date This section contains immunizations associated to the Encounter. Immunization Series Date Issued Reaction Comments COVID-19 (MODERNA), MRNA, LN P-S, PF, 50 MCG/0.5 ML (AGES 12+ YEARS) Mar 03, 2023 Social History: Smoking Status (Most current) and Tobacco Use (All prior to encounter date) This section includes the most current, and the historical, smoking and tobacco- related health factors from the [place] facility where the Encounter took place. Current Smoking Status This section includes the most current smoking, or tobacco-related health factor, from the [place] facility where the Encounter took place. Date/Time Current Smoking Status Comment Robyn baez October 18, 2022 10:00 AM [place]-TOBACCO NEVER USED [facility] Tobacco Use History This section includes a history of the smoking, or tobacco-related health factors, that were collected on or before the date of the Encounter. The data comes from the [place] facility where the Encounter took place. Date/Time Smoking Status/Tobacco Use Comment Farooq aranda September 28, 2021 09:30 AM [facility]-TOBACCO NEVER USED [facility] Nov 10, 2020 08:30 AM VA-TOBACCO NEVER USED [facility] Pathology Reports: +/- 30 days of the [...] the Encounter. The data comes from all [place] treatment facilities. Date/Time Pathology Report Provider Source Mar 16, 2023 02:58 PM LR SURGICAL PATHOL OGY REPORT: LOCAL TITLE: LR SURGICAL PATHOLOGY REPORT STANDARD TITLE: PATHOLOGY REPORT DATE OF NOTE: MAR 16, 2023@14:58:43 ENTRY DATE: MAR 16, 2023@:58:43 AUTHOR: ALICIA KAUFMAN EXP COSIGNER: URGENCY: STATUS: COMPLETED $APHDR Reporting Lab: [facility] [CLIA# [id number]] [place] [address] - - - - - - - [...] - PATHOLOGY REPORT Accession No. [id number] - - - - - - - [...] - PATHOLOGY REPORT Accession No. [id number] - - - - - - - [...] cm. The specimen is inked. [facility] MICROSCOPIC DESCRIPTION: Microscopic examination performed. 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, incompletely removed /es/ ALICIA KAUFMAN MD STAFF PATHOLOGIST, PATHOLOGY & LABORATORY MED [facility] [place] [place] Signed Mar 16, 2023@14:58 Performing Laboratory: Surgical Pathology Report Performed By: [facility] [CLIA# [id number]] [place] [address] $FTR - - - - - - [...] - - ALICE MOBLEY STANDARD FORM 515 ID:[id number] SEX:F :1935 AGE: 88 LOC:[id number] PCP: Dominic Ely MD /baltazar/ ALICIA KAUFMAN MD STAFF PATHOLOGIST, PATHOLOGY & LABORATORY MED [facility] [place] Signed: 03/16/2023 14:58 ALICIA KAUFMAN [facility]
--- OUTSIDE RECORDS SUMMARY | 2023-06-24 08:43 | XMS_ITS | Encounter Summary ---
Author Name [facility] Organization Department of [facility] Address [address] [place] [address] Insurance Providers: All historical and current Section [...] Patient's Relationship to Policy [employer] [facility] ([id number]) PRESCRIPT ION GEHA May 30, 2005 [id number] [phone] SONIA MOBLEY PATIENT GEHA (SECONDARY ) PREFERRED PROVIDER ORGANIZAT ION (PPO) GEHA A&B PRIMA RY May 30, 2005 [id number] SONIA MOBLEY PATIENT GEHA (SECONDARY ) PREFERRED PROVIDER ORGANIZAT ION (PPO) GEHA A/B PRIMA RY May 30, 2005 [id number] SONIA MOBLEY PATIENT [facility] PREFERRED PROVIDER ORGANIZAT ION (PPO) DO NOT USE May 30, 2005 [id number] TONI BRITO PATIENT MEDICARE (WNR) MEDICARE (M) PART A Jan 29, 2000 PART A [id number] SONIA MOBLEY PATIENT MEDICARE (WNR) MEDICARE (M) PART B Jan 29, 2000 PART B [id number] SONIA MOBLEY PATIENT Selected Encounter This section includes the information on record at [place] for the Encounter. 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 Date/Time Primary/Secondary Diagnosis Diagnosis Name Provider Source Mar 16, 2023 03:58 PM PRIMARY Clonic hemifacial spasm, left [facility] Mar 16, 2023 03:58 PM SECONDARY Athscl heart disease of [place] coronary artery w/o ang pctrs [facility] Mar 16, 2023 03:58 PM SECONDARY Disorder of the skin and subcutaneous tissue, unspecified [facility] Mar 16, 2023 03:58 PM SECONDARY Essential (primary) hypertension [facility] Mar 16, 2023 03:58 PM SECONDARY Peripheral vascular disease, unspecified [facility] Mar 16, 2023 03:58 PM SECONDARY Personal history of malignant neoplasm of breast [facility] Mar 16, 2023 03:58 PM SECONDARY Prediabetes [facility] Mar 16, 2023 03:58 PM SECONDARY Squamous cell carcinoma skin/ left upper limb, inc shoulder [facility] Plan of Treatment: Future Appointments (+ 6 months) and Future Tests (+/- 45 days) The Plan of Treatment section includes future care activities for the patient from all [facility]. This section includes future appointments and future orders which are active, pending or scheduled. Future Appointments This section includes appointments that were scheduled to occur 6 months from the date of the Encounter, up to a maximum of 20 appointments. The data comes from all [facility]. Appointment Date/Time Appointment Type Appointme nt Facility Name May 03, 2023 08:30 AM AMBULATORY - REHAB MEDICIN [facility] May 03, 2023 09:00 AM AMBULATORY - SURGERY [facility] May 09, 2023 03:[facility] May 18, 2023 09:15 AM AMBULATORY - SURGERY [facility] May 24, 2023 05:00 PM AMBULATORY - REHAB MEDICIN E [facility] May 31, 2023 01:00 PM AMBULATORY - SURGERY [facility] Jun 28, 2023 10:40 AM AMBULATORY - SURGERY [facility] Aug 09, 2023 11:00 AM AMBULATORY - REHAB MEDICIN E [facility] Lab Results: +/- 30 days of the encounter This section includes the Chemistry and Hematology Lab Results on record with [place] for the patient. Radiology Reports and Pathology Reports are provided separately, in subsequent sections. Lab Results This section contains the Chemistry/Hematology Results that were resulted 30 days before or 30 daysafter the date of the Encounter. Date/Time Source Result Type Result - Unit Interpretation Reference Range Comment Mar 15, 2023 08:22 AM [facility] BASIC METABOLIC PANEL+MG Specimen Type: PLASMA No comment entered. Ordering Provider: MARIMAR LEBRON Report Released Date/Time: Feb 10, 2023 09:08 AM Reporting Lab: [facility] [id number] Performing Lab: [facility] [address] CREATININE 0.6 0.5-1.0 UREA NITROGEN 9 7-20 GLUCOSE 106 H 70-100 SODIUM 138 136-145 POTASSIUM 3.4 L 3.5-5.1 CHLORIDE 103 98-107 CO2 28 22-29 CALCIUM 9.3 8.4-10.2 MAGNESIUM 1.8 1.6-2.6 ANION GAP 7 5-15 .CREAT EGFR(CKD-EPI ) 86 >60 Mar 15, 2023 08:22 AM [facility] TSH W/REFLEX TO FREE T4 Specimen Type: PLASMA No comment entered. Ordering Provider: NATALIA TREJO Report Released Date/Time: Mar 16, 2022 11:04 AM Reporting Lab: [facility] [id number] Performing Lab: [facility] [address] TSH 0.61 0.35-4.94 Mar 15, 2023 08:22 AM [facility] VIT D 25-OH,TOTAL Specimen Type: SERUM No comment entered. Ordering Provider: NATALIA TREJO Report Released Date/Time: Mar 16, 2022 11:04 AM Reporting Lab: [facility] [id number] Performing Lab: [facility] [address] VIT D 25-OH,TOTAL 30 12-50 Mar 15, 2023 08:22 AM [facility] CBC Specimen Type: BLOOD No comment entered. Ordering Provider: NATALIA TREJO Report Released Date/Time: Mar 16, 2022 11:04 AM Reporting Lab: [facility] [id number] Performing Lab: [facility] [address] WBC 5.71 4.0-11.0 RBC 4.77 4.0-5.4 HGB 14.2 11.5-16 HCT 40.8 34.5-48 MCV 85.5 80-100 MCH 29.8 27-33 MCHC 34.8 32.0-37.5 PLT 187 150-400 MPV 9.3 7.4-10.4 RDW 13.6 11.5-14.5 Mar 15, 2023 08:22 AM [facility] BASIC METABOLIC PANEL+MG Specimen Type: PLASMA No comment entered. Ordering Provider: NATALIA TREJO Report Released Date/Time: Mar 16, 2022 11:04 AM Reporting Lab: [facility] [address] Performing Lab: [facility] Mar 15, 2023 08:22 AM [facility] HEMOGLOBIN A1C Specimen Type: BLOOD Comment: Values obtained from A1C measurements can vary. For typical A1C assays, a reported value of 7.0 could actually be between 6.7 and 7.3 if measured by a reference method. A reported value of 9.0 could actually be between 8.7 and 9.3. Ref: http://www.ngs p.org/CAPdata. asp Ordering Provider: NATALIA TREJO Report Released Date/Time: Mar 16, 2022 11:04 AM Reporting Lab: [facility] [address] Performing Lab: [facility] [address] HEMOGLOBIN A1C 6.0 4.0-6.0 Mar 15, 2023 08:22 AM [facility] LIPID PANEL,NON-FASTING Specimen Type: PLASMA No comment entered. Ordering Provider: NATALIA TREJO Report Released Date/Time: Mar 16, 2022 11:04 AM Reporting Lab: [facility] [address] [facility] [address] Performing Lab: [facility] Vital Signs: All taken on the encounter date This section contains inpatient and outpatient Vital Signs collected on the date of the Encounter. Date/Time Temperature Pulse Blood Pressure Respiratory Rate SP02 Pain Height Weight Body Mass Index Source Mar 15, 2023 10:08 AM 75 /min 124/73 mm[Hg] 18 /min 96 % 0 60.5 in 162.5 lb 31 [facility] Social History: Smoking Status (Most current) and Tobacco Use (All prior to encounter date) This section includes the most current, and the historical, smoking and tobacco- related health factors from the [place] facility where the Encounter took place. Current Smoking Status This section includes the most current smoking, or tobacco-related health factor, from the [place] facility where the Encounter took place. Date/Time Current Smoking Status Comment Facil ity October 18, 2022 10:00 AM IA-TOBACCO NEVER USED [facility] Tobacco Use History This section includes a history of the smoking, or tobacco-related health factors, that were collected on or before the date of the Encounter. The data comes from the [place] facility where the Encounter took place. Date/Time Smoking Status/Tobacco Use Comment F acility September 28, 2021 09:30 AM [place]-TOBACCO NEVER USED [facility] Nov 10, 2020 08:30 AM [place]-TOBACCO NEVER USED [facility] Pathology Reports: +/- 30 days of [...] the Encounter. The data comes from all [place] treatment facilities. Date/Time Pathology Report Provider Source Mar 16, 2023 02:58 PM LR SURGICAL PATHOL OGY REPORT: LOCAL TITLE: LR SURGICAL PATHOLOGY REPORT STANDARD TITLE: PATHOLOGY REPORT DATE OF NOTE: MAR 16, 2023@14:58:43 ENTRY DATE: MAR 16, 2023@14:58:43 AUTHOR: ALICIA KAUFMAN EXP COSIGNER: URGENCY: STATUS: COMPLETED $APHDR Reporting Lab: [facility] [CLIA# [id number]] [place] [address] - - - - - - - [...] - PATHOLOGY REPORT Accession No. [id number] - - - - - - - - - - - - - - - - - - - - - - - - - - - - - - - - - - - - - - - - $TEXT Submitted by: NATALIA TREJO Date obtained: Mar 15, 2023 - [...] - - - - POSTOPERATIVE DIAGNOSIS: Surgeon/physician: NATALIA ELY MD =-=-=-=-=-=-=-=-=-=-=-=-=-=-=- =-=-=-=-=-=-=-=-=-=-=-=-=-=-=- =-=-=-=-=-=-=-=-=-= - - - - - - - - - - - - - - - - - - - - - - - - - - - - - - - - - - - - - - - - PATHOLOGY REPORT Accession No. [id number] - - - - - - - [...] - invasive squamous cell carcinoma, incompletely removed /baltazar/ ALICIA KAUFMAN MD STAFF PATHOLOGIST, PATHOLOGY & LABORATORY MED [facility] Signed Mar 16, 2023@14:58 Performing Laboratory: Surgical Pathology Report Performed By: [facility] [CLIA# [id number]] [place] [address] $FTR - - - - - - [...] - - ALICE MOBLEY STANDARD FORM 515 ID:[id number] SEX:F :1935 AGE: 88 LOC:[id number] PCP: Natalia Ely MD /baltazar/ ALICIA KAUFMAN MD STAFF PATHOLOGIST, PATHOLOGY & LABORATORY MED C Signed: 03/16/2023 14:58 ALICIA KAUFMAN [facility] Encounter Notes: All associated encounter notes This section contains the clinical notes associated to the Encounter. 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 The lesion was not removed in its entirety, meaning that there is still some of the cancerous lesion present at the site of the biopsy. I have placed a dermatology referral, and they should be contacting her to schedule. /baltazar/ Natalia Ely MD STAFF PHYSICIAN Signed: 03/16/2023 16:00 Receipt Acknowledged By: 03/16/2023 16:03 /talat JAIN REGISTERED NURSE --- Original Document --- 03/15/23 [facility] NOTE: Nurse's Notes Reviewed. Chief Complaint: annual S: The patient is a 88 yo FEMALE who comes in today for annual. Bothered by facial twitching for the past year. STarts at left corner of mouth and goes up to her eye. Often starts at night and will keep her from going to sleep. Also, other people can see this is happening and she finds this embarassing. Also has what she describes as a pimple on her left shoulder. She wants me to look at this today, and wonders if it can be drained. It is right where her shirt collar goes, and is bothering her. She thinks has been there for the past 3 or 4 days. Diarrhea after having cereal in the morning. Past medical history/Active Problems: Active Problems: Active [...] - 2011 4. Polymyalgia rheumatica 5. Prediabetes ([facility] [id number]) 6. 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 ([facility] [id number]) - L breast, 1.2 cm, 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; ER/OK pos, HER2 neg. - pT1c, N0, M0-Stage 1A - s/p lumpectomy 06/2014, radiation therapy - On Anastrazole since 07/2014 7. History of cholecystectomy 8. History of total knee arthroplasty - R knee 9. Peripheral vascular disease - s/p stenting Femoral artery, 2008 10. Sleep Apnea ([facility] [id number]) 11. Benign essential hypertension 12. Thoracic aortic aneurysm without rupture Review of Systems: 10 point ROS including constitutional, eyes, respiratory, cardiovascular, pulmonary, gastroenterology, genitourinary, integumentary, musculoskeletal, pschiatric were all negative except for pertinent positive noted in my HPI. Physical Exams: Vitals: BP: 124/73 (03/15/2023 10:08) P: 75 (03/15/2023 10:08) R: 18 (03/15/2023 10:08) T: 97.5 F [36.4 C] (08/09/2022 09:27) WT: 162.5 lb [73.71 kg] (03/15/2023 10:08) O2 Sat: 96% (03/15/2023 10:08) BMI: 31.3 BMI > 25 Assessment General: Pleasant female, no apparent distress Neck: No lymphadenopathy, no thyromegaly Respiratory: Lungs clear to auscultation bilaterally CV: Heart regular rate and rhythm, no murmurs rubs or gallops Abdomen: Soft, nontender, nondistended, normal bowel sounds Extremities: Warm, well-perfused, no lower extremity edema Skin: Warm, dry, no rash; 3 mm nodular lesion on left shoulder, with mild surrounding erythema at the base. Unclear if fluctuant present or not Neuro: Alert oriented x3, no focal deficits Assessment/Plan: The patient is a 88 yo FEMALE who comes in for follow up visit today. #. Facial twitching -Given ongoing nature of this and intrusive nature, will refer to neurology. #. Hypertension -Blood pressure at goal -Continue current meds #. History of breast cancer -Still taking anastrozole; will discontinue at this time is no longer needed 8 years out per oncology consult last year #. History of peripheral arterial disease, CAD -Continue atorvastatin, aspirin, metoprolol #. Hyperlipidemia -Lipids at goal #. Prediabetes -A1c stable at 6.1% #. GERD Continue omeprazole #. Left shoulder skin lesion -Uncertain at time of procedure whether or not this was actually a lesion that could be drained versus a more solid lesion. With patient's verbal informed consent, anesthetized region using 1 cc 1% lidocaine with epinephrine. Made small incision into the top of the lesion, and no purulent matter was able to be expressed. Appeared to be granular tissue. Given this, transition to a shave biopsy, and lesion was removed in usual form. Specimen was sent to pathology. Hemostasis was obtained with Drysol and pressure. We will inform her when the results become available. Routine healthcare screening not indicated at this time. Return to clinic in 6 months Natalia Ely MD Staff Physician Section of [facility] Foot Check: A complete foot check was completed at this encounter. VISUAL INSPECTION: Includes inspection for skin breaks, deformity, erythema, trauma, pallor on elevation, dependent rubor, nail deformities, extensive callus and pitting edema. Visual exam results: Normal PEDAL PULSES: Includes palpation of dorsalis and posterior tibial pulses and signs/symptoms of vascular compromise like pain, pallor, parasthesia or paralysis. Present (even if diminished) SENSORY CHECK: Includes 10 gram Monofilament ([place]-Nikita) test of sensation. Intact (Greater than or equal to 80% of sites checked) Abnormal (Less than 80% of sites checked): Intact LOW-RISK LOW RISK FOOT EDUCATION: 1. Advised patient not to walk barefoot. Instructed the patient to pay close attention to the style and fit of shoes. 2. Explained the importance of daily foot checks. Explained that loss of sensation leads to callouses. Callouses break down, which result in ulcers that may lead to gangrene and amputation. 3. Stressed the importance of daily foot hygiene. Warm (not hot) bathing of the feet, complete drying and thorough inspection for changes in the condition of the skin constitute daily foot care. Demonstrated how to do a thorough foot check. 4. Emphasized the use of clean, non-restrictive socks/stockings and well fitting shoes. 5. Stressed the importance of immediate follow-up of any foot injuries or ulcers. Explained that he/she should be non-weight bearing whenever there are lesions on the foot, to prevent cellular damage. Level of Understanding: Good Medication Reconciliation: Education Evaluations *Was medication education provided for NEW medications or CHANGES to medications? (including medication name, dose, route, reason for use, and potential side effects). No new medications or medication changes during this encounter. TERATOGENIC MED & CONTRACEPTION REVIEW (Optional)... = MEDICATION RECONCILIATION = List Given: An updated medication list was provided to the patient/caregiver. Review Done: The medication list shown below was verified for accuracy and it includes all pending medications/active medications/all medications or discontinued within the last 90 days/all remote medications and non-VA medications. If a given category (i.e. remote meds) is not shown, that means that a patient doesn't have a medication(s) in that category. Allergies listed below were also reviewed/updated for accuracy. Allergies/ADR from [employer] may not display in CPRS. Use JLV MRT5 - Allergies/ADRs FACILITY ALLERGY/ADR -------- No Remote Allergy/ADR Data available for this patient [facility] No Known Allergies Active and Recently Outpatient Medications (including Supplies): Issue Date Status Last Fill Active Outpatient Medications Refills Expiration 1) ASPIRIN 81MG CHEW TAB Qty: 108 for 90 ACTIVE (S) Issu:03-15-23 days Sig: CHEW ONE TABLET BY MOUTH Refills: 3 Last:03-16-23 EVERY DAY Expr:03-15-24 2) ATORVASTATIN CALCIUM 80MG TAB Qty: 90 ACTIVE Issu:02-10-23 for 90 days Sig: TAKE ONE TABLET BY Refills: 3 Last:02-10-23 MOUTH EVERY DAY FOR CHOLESTEROL Expr:02-11-24 3) CALCIUM 250MG/VITAMIN D 125 UNT TAB ACTIVE (S) Issu:03-15-23 Qty: 200 for 90 days Sig: TAKE 2 Refills: 3 Last:05-11-23 TABLETS BY MOUTH EVERY DAY Expr:03-15-24 4) CHOLECALCIF 25MCG (D3-1,000UNIT) TAB HOLD Issu:03-16-22 Qty: 200 for 90 days Sig: TAKE TWO Refills: 3 TABLETS BY MOUTH EVERY DAY Expr:03-17-23 5) HYDROCHLOROTHIAZIDE 25MG TAB Qty: 90 ACTIVE Issu:02-10-23 for 90 days Sig: TAKE ONE TABLET BY Refills: 3 Last:02-10-23 MOUTH EVERY DAY FOR BLOOD PRESSURE Expr:02-11-24 6) LISINOPRIL 40MG TAB Qty: 90 for 90 days ACTIVE Issu:02-10-23 Sig: TAKE ONE TABLET BY MOUTH EVERY Refills: 3 Last:02-10-23 DAY FOR BLOOD PRESSURE Expr:02-11-24 7) METOPROLOL SUCCINATE 50MG SA TAB Qty: ACTIVE Issu:02-10-23 90 for 90 days Sig: TAKE ONE TABLET Refills: 3 Last:02-10-23 BY MOUTH AT BEDTIME FOR BLOOD PRESSURE Expr:02-11-24 8) OLOPATADINE HCL 0.1% OPH SOLN Qty: 15 ACTIVE (S) Issu:03-15-23 for 75 days Sig: INSTILL 1 DROP IN Refills: 3 Last:03-16-23 BOTH EYES TWICE A DAY Expr:03-15-24 9) OMEPRAZOLE 20MG EC CAP Qty: 26 for 90 ACTIVE Issu:03-16-22 days Sig: TAKE ONE CAPSULE BY MOUTH Refills: 2 Last:11-09-22 TWICE A WEEK ON AN EMPTY STOMACH, AT Expr:03-17-23 LEAST 30 MINUTES PRIOR TO A MEAL Issue Date Status Last Fill Pending Outpatient Medications Refills Expiration 1) OMEPRAZOLE 20MG EC CAP Qty: 26 Sig: PENDING TAKE ONE CAPSULE BY MOUTH TWICE A WEEK Refills: 0 ON AN EMPTY STOMACH, AT LEAST 30 MINUTES PRIOR TO A MEAL 2) POISE PAD,MODERATE ABSORBENCY Qty: 120 PENDING Sig: USE 1 PAD DIRECTED Refills: 0 Issue Date Status Last Fill Inactive Outpatient [...] PRESSURE Expr:01-25-24 5) ANASTROZOLE 1MG TAB Qty: 90 for 90 days DISCONTINUED Issu:02-10-23 Sig: TAKE ONE TABLET BY MOUTH EVERY Refills: 3 Last:02-10-23 DAY FOR BREAST CANCER Expr:02-11-24 6) ANASTROZOLE 1MG TAB Qty: 30 for 30 days DISCONTINUED Issu:08-10-22 Sig: TAKE ONE TABLET BY MOUTH EVERY (EDIT) Last:01-07-23 DAY FOR BREAST CANCER Refills: 9 Expr:08-11-23 7) ANASTROZOLE 1MG TAB Qty: 90 for 90 days DISCONTINUED Issu:03-16-22 Sig: TAKE ONE TABLET BY MOUTH EVERY (EDIT) Last:06-29-22 DAY Refills: 3 Expr:03-17-23 8) ASPIRIN 81MG CHEW TAB Qty: 108 for 90 DISCONTINUED Issu:03-16-22 days Sig: CHEW ONE TABLET BY MOUTH Refills: 3 Last:06-29-22 EVERY DAY Expr:03-17-23 9) ATORVASTATIN CALCIUM 80MG TAB Qty: 30 DISCONTINUED Issu:08-10-22 for 30 days Sig: TAKE ONE TABLET BY (EDIT) Last:01-07-23 MOUTH EVERY DAY FOR CHOLESTEROL Refills: 8 Expr:08-11-23 10) ATORVASTATIN CALCIUM 80MG TAB Qty: 90 DISCONTINUED Issu:03-16-22 for 90 days Sig: TAKE ONE TABLET BY (EDIT) Last:03-19-22 MOUTH EVERY DAY Refills: 3 Expr:03-17-23 11) CALCIUM 250MG/VITAMIN D 125 UNT TAB DISCONTINUED Issu:03-16-22 Qty: 200 for 90 days Sig: TAKE 2 Refills: 1 Last:02-10-23 TABLETS BY MOUTH EVERY DAY Expr:03-17-23 12) HYDROCHLOROTHIAZIDE 12.5MG TAB Qty: 30 DISCONTINUED Issu:08-10-22 for 30 days Sig: TAKE ONE TABLET BY (EDIT) Last:01-07-23 MOUTH EVERY DAY FOR BLOOD PRESSURE Refills: 9 Expr:08-11-23 13) HYDROCHLOROTHIAZIDE 25MG TAB Qty: 45 DISCONTINUED Issu:03-16-22 for 90 days Sig: TAKE ONE-HALF TABLET (EDIT) Last:06-29-22 BY MOUTH EVERY DAY Refills: 3 Expr:03-17-23 14) LISINOPRIL 40MG TAB Qty: 30 for 30 days DISCONTINUED Issu:08-10-22 Sig: TAKE ONE TABLET BY MOUTH EVERY (EDIT) Last:01-07-23 DAY FOR BLOOD PRESSURE Refills: 9 Expr:08-11-23 15) LISINOPRIL 40MG TAB Qty: 45 for 90 days DISCONTINUED Issu:03-16-22 Sig: TAKE ONE-HALF TABLET BY MOUTH Refills: 3 Last:03-16-22 EVERY DAY Expr:03-17-23 16) METOPROLOL SUCCINATE 50MG SA TAB Qty: DISCONTINUED Issu:08-10-22 30 for 30 days Sig: TAKE ONE TABLET (EDIT) Last:01-07-23 BY MOUTH AT BEDTIME FOR BLOOD PRESSURE Refills: 9 Expr:08-11-23 17) METOPROLOL SUCCINATE 50MG SA TAB Qty: DISCONTINUED Issu:06-29-22 90 for 90 days Sig: TAKE ONE TABLET (EDIT) Last:06-29-22 BY MOUTH AT BEDTIME Refills: 3 Expr:06-30-23 18) METOPROLOL SUCCINATE 50MG SA TAB Qty: DISCONTINUED Issu:03-16-22 45 for 90 days Sig: TAKE ONE-HALF (EDIT) Last:06-29-22 TABLET BY MOUTH AT BEDTIME Refills: 3 Expr:03-17-23 19) NITROFURANTOIN MONO/MACRO 100MG SA CAP DISCONTINUED Issu:10-11-22 Qty: 15 for 30 days Sig: TAKE ONE Refills: 3 Last:10-12-22 CAPSULE BY MOUTH EVERY DAY DIRECTED Expr:10-12-23 TO PREVENT URINARY TRACT INFECTION AFTER SWIMMING 20) OLOPATADINE HCL 0.1% OPH SOLN Qty: 15 DISCONTINUED Issu:03-16-22 for 75 days Sig: INSTILL 1 DROP IN Refills: 2 Last:11-09-22 BOTH EYES TWICE A DAY Expr:03-17-23 21) POISE PAD,MODERATE ABSORBENCY Qty: 120 DISCONTINUED Issu:11-02-22 for 30 days Sig: USE 1 PAD (EDIT) Last:11-04-22 DIRECTED Refills: 3 Expr:11-03-23 32 Total Medications /baltazar/ Natalia Ely MD STAFF PHYSICIAN Signed: 03/16/2023 15:58 03/16/2023 ADDENDUM STATUS: COMPLETED Vet informed of the above, no additional questions or concerns at this time. /baltazar/ MICKI JAIN REGISTERED NURSE Signed: 03/16/2023 16:03 NATALIA TREJO [facility] Mar 15, 2023 11:20 AM [facility] NOTE: LOCAL TITLE: [facility]INIC NOTE STANDARD TITLE: [facility] NOTE DATE OF NOTE: MAR 15, 2023@11:20 ENTRY DATE: MAR 15, 2023@11:20:56 AUTHOR: WEI TREJO EXP COSIGNER: URGENCY: STATUS: COMPLETED [facility] NOTE Has ADDENDA Nurse's Notes Reviewed. Chief Complaint: annual S: The patient is a 88 yo FEMALE who comes in today for annual. Bothered by facial twitching for the past year. STarts at left corner of mouth and goes up to her eye. Often starts at night and will keep her from going to sleep. Also, other people can see this is happening and she finds this embarassing. Also has what she describes as a pimple on her left shoulder. She wants me to look at this today, and wonders if it can be drained. It is right where her shirt collar goes, and is bothering her. She thinks has been there for the past 3 or 4 days. Diarrhea after having cereal in the morning. Past medical history/Active Problems: Active Problems: Active [...] - 2011 4. Polymyalgia rheumatica 5. Prediabetes ([facility] [id number]) 6. 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 ([facility] [id number]) - L breast, 1.2 cm, 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; ER/OK pos, HER2 neg. - pT1c, N0, M0-Stage 1A - s/p lumpectomy 06/2014, radiation therapy - On Anastrazole since 07/2014 7. History of cholecystectomy 8. History of total knee arthroplasty - R knee 9. Peripheral vascular disease - s/p stenting Femoral artery, 2008 10. Sleep Apnea ([facility] [id number]) 11. Benign essential hypertension 12. Thoracic aortic aneurysm without rupture Review of Systems: 10 point ROS including constitutional, eyes, respiratory, cardiovascular, pulmonary, gastroenterology, genitourinary, integumentary, musculoskeletal, pschiatric were all negative except for pertinent positive noted in my HPI. Physical Exams: Vitals: BP: 124/73 (03/15/2023 10:08) P: 75 (03/15/2023 10:08) R: 18 (03/15/2023 10:08) T: 97.5 F [36.4 C] (08/09/2022 09:27) WT: 162.5 lb [73.71 kg] (03/15/2023 10:08) O2 Sat: 96% (03/15/2023 10:08) BMI: 31.3 BMI > 25 Assessment General: Pleasant female, no apparent distress Neck: No lymphadenopathy, no thyromegaly Respiratory: Lungs clear to auscultation bilaterally CV: Heart regular rate and rhythm, no murmurs rubs or gallops Abdomen: Soft, nontender, nondistended, normal bowel sounds Extremities: Warm, well-perfused, no lower extremity edema Skin: Warm, dry, no rash; 3 mm nodular lesion on left shoulder, with mild surrounding erythema at the base. Unclear if fluctuant present or not Neuro: Alert oriented x3, no focal deficits Assessment/Plan: The patient is a 88 yo FEMALE who comes in for follow up visit today. #. Facial twitching -Given ongoing nature of this and intrusive nature, will refer to neurology. #. Hypertension -Blood pressure at goal -Continue current meds #. History of breast cancer -Still taking anastrozole; will discontinue at this time is no longer needed 8 years out per oncology consult last year #. History of peripheral arterial disease, CAD -Continue atorvastatin, aspirin, metoprolol #. Hyperlipidemia -Lipids at goal #. Prediabetes -A1c stable at 6.1% #. GERD Continue omeprazole #. Left shoulder skin lesion -Uncertain at time of procedure whether or not this was actually a lesion that could be drained versus a more solid lesion. With patient's verbal informed consent, anesthetized region using 1 cc 1% lidocaine with epinephrine. Made small incision into the top of the lesion, and no purulent matter was able to be expressed. Appeared to be granular tissue. Given this, transition to a shave biopsy, and lesion was removed in usual form. Specimen was sent to pathology. Hemostasis was obtained with Drysol and pressure. We will inform her when the results become available. Routine healthcare screening not indicated at this time. Return to clinic in 6 months Natalia Ely MD Staff Physician Section of [facility] Foot Check: A complete foot check was completed at this encounter. VISUAL INSPECTION: Includes inspection for skin breaks, deformity, erythema, trauma, pallor on elevation, dependent rubor, nail deformities, extensive callus and pitting edema. Visual exam results: Normal PEDAL PULSES: Includes palpation of dorsalis and posterior tibial pulses and signs/symptoms of vascular compromise like pain, pallor, parasthesia or paralysis. Present (even if diminished) SENSORY CHECK: Includes 10 gram Monofilament ([place]-Nikita) test of sensation. Intact (Greater than or equal to 80% of sites checked) Abnormal (Less than 80% of sites checked): Intact LOW-RISK LOW RISK FOOT EDUCATION: 1. Advised patient not to walk barefoot. Instructed the patient to pay close attention to the style and fit of shoes. 2. Explained the importance of daily foot checks. Explained that loss of sensation leads to callouses. Callouses break down, which result in ulcers that may lead to gangrene and amputation. 3. Stressed the importance of daily foot hygiene. Warm (not hot) bathing of the feet, complete drying and thorough inspection for changes in the condition of the skin constitute daily foot care. Demonstrated how to do a thorough foot check. 4. Emphasized the use of clean, non-restrictive socks/stockings and well fitting shoes. 5. Stressed the importance of immediate follow-up of any foot injuries or ulcers. Explained that he/she should be non-weight bearing whenever there are lesions on the foot, to prevent cellular damage. Level of Understanding: Good Medication Reconciliation: Education Evaluations *Was medication education provided for NEW medications or CHANGES to medications? (including medication name, dose, route, reason for use, and potential side effects). No new medications or medication changes during this encounter. TERATOGENIC MED & CONTRACEPTION REVIEW (Optional)... = MEDICATION RECONCILIATION = List Given: An updated medication list was provided to the patient/caregiver. Review Done: The medication list shown below was verified for accuracy and it includes all pending medications/active medications/all medications or discontinued within the last 90 days/all remote medications and non-VA medications. If a given category (i.e. remote meds) is not shown, that means that a patient doesn't have a medication(s) in that category. Allergies listed below were also reviewed/updated for accuracy. Allergies/ADR from [facility] may not display in CPRS. Use JLV MRT5 - Allergies/ADRs FACILITY ALLERGY/ADR -------- No Remote Allergy/ADR Data available for this patient [facility] No Known Allergies Active and Recently Outpatient Medications (including Supplies): Issue Date Status Last Fill Active Outpatient Medications Refills Expiration 1) ASPIRIN 81MG CHEW TAB Qty: 108 for 90 ACTIVE (S) Issu:03-15-23 days Sig: CHEW ONE TABLET BY MOUTH Refills: 3 Last:03-16-23 EVERY DAY Expr:03-15-24 2) ATORVASTATIN CALCIUM 80MG TAB Qty: 90 ACTIVE Issu:02-10-23 for 90 days Sig: TAKE ONE TABLET BY Refills: 3 Last:02-10-23 MOUTH EVERY DAY FOR CHOLESTEROL Expr:02-11-24 3) CALCIUM 250MG/VITAMIN D 125 UNT TAB ACTIVE (S) Issu:03-15-23 Qty: 200 for 90 days Sig: TAKE 2 Refills: 3 Last:05-11-23 TABLETS BY MOUTH EVERY DAY Expr:03-15-24 4) CHOLECALCIF 25MCG (D3-1,000UNIT) TAB HOLD Issu:03-16-22 Qty: 200 for 90 days Sig: TAKE TWO Refills: 3 TABLETS BY MOUTH EVERY DAY Expr:03-17-23 5) HYDROCHLOROTHIAZIDE 25MG TAB Qty: 90 ACTIVE Issu:02-10-23 for 90 days Sig: TAKE ONE TABLET BY Refills: 3 Last:02-10-23 MOUTH EVERY DAY FOR BLOOD PRESSURE Expr:02-11-24 6) LISINOPRIL 40MG TAB Qty: 90 for 90 days ACTIVE Issu:02-10-23 Sig: TAKE ONE TABLET BY MOUTH EVERY Refills: 3 Last:02-10-23 DAY FOR BLOOD PRESSURE Expr:02-11-24 7) METOPROLOL SUCCINATE 50MG SA TAB Qty: ACTIVE Issu:02-10-23 90 for 90 days Sig: TAKE ONE TABLET Refills: 3 Last:02-10-23 BY MOUTH AT BEDTIME FOR BLOOD PRESSURE Expr:02-11-24 8) OLOPATADINE HCL 0.1% OPH SOLN Qty: 15 ACTIVE (S) Issu:03-15-23 for 75 days Sig: INSTILL 1 DROP IN Refills: 3 Last:03-16-23 BOTH EYES TWICE A DAY Expr:03-15-24 9) OMEPRAZOLE 20MG EC CAP Qty: 26 for 90 ACTIVE Issu:03-16-22 days Sig: TAKE ONE CAPSULE BY MOUTH Refills: 2 Last:11-09-22 TWICE A WEEK ON AN EMPTY STOMACH, AT Expr:03-17-23 LEAST 30 MINUTES PRIOR TO A MEAL Issue Date Status Last Fill Pending Outpatient Medications Refills Expiration 1) OMEPRAZOLE 20MG EC CAP Qty: 26 Sig: PENDING TAKE ONE CAPSULE BY MOUTH TWICE A WEEK Refills: 0 ON AN EMPTY STOMACH, AT LEAST 30 MINUTES PRIOR TO A MEAL 2) POISE PAD,MODERATE ABSORBENCY Qty: 120 PENDING Sig: USE 1 PAD DIRECTED Refills: 0 Issue Date Status Last Fill Inactive Outpatient [...] PRESSURE Expr:01-25-24 5) ANASTROZOLE 1MG TAB Qty: 90 for 90 days DISCONTINUED Issu:02-10-23 Sig: TAKE ONE TABLET BY MOUTH EVERY Refills: 3 Last:02-10-23 DAY FOR BREAST CANCER Expr:02-11-24 6) ANASTROZOLE 1MG TAB Qty: 30 for 30 days DISCONTINUED Issu:08-10-22 Sig: TAKE ONE TABLET BY MOUTH EVERY (EDIT) Last:01-07-23 DAY FOR BREAST CANCER Refills: 9 Expr:08-11-23 7) ANASTROZOLE 1MG TAB Qty: 90 for 90 days DISCONTINUED Issu:03-16-22 Sig: TAKE ONE TABLET BY MOUTH EVERY (EDIT) Last:06-29-22 DAY Refills: 3 Expr:03-17-23 8) ASPIRIN 81MG CHEW TAB Qty: 108 for 90 DISCONTINUED Issu:03-16-22 days Sig: CHEW ONE TABLET BY MOUTH Refills: 3 Last:06-29-22 EVERY DAY Expr:03-17-23 9) ATORVASTATIN CALCIUM 80MG TAB Qty: 30 DISCONTINUED Issu:08-10-22 for 30 days Sig: TAKE ONE TABLET BY (EDIT) Last:01-07-23 MOUTH EVERY DAY FOR CHOLESTEROL Refills: 8 Expr:08-11-23 10) ATORVASTATIN CALCIUM 80MG TAB Qty: 90 DISCONTINUED Issu:03-16-22 for 90 days Sig: TAKE ONE TABLET BY (EDIT) Last:03-19-22 MOUTH EVERY DAY Refills: 3 Expr:03-17-23 11) CALCIUM 250MG/VITAMIN D 125 UNT TAB DISCONTINUED Issu:03-16-22 Qty: 200 for 90 days Sig: TAKE 2 Refills: 1 Last:02-10-23 TABLETS BY MOUTH EVERY DAY Expr:03-17-23 12) HYDROCHLOROTHIAZIDE 12.5MG TAB Qty: 30 DISCONTINUED Issu:08-10-22 for 30 days Sig: TAKE ONE TABLET BY (EDIT) Last:01-07-23 MOUTH EVERY DAY FOR BLOOD PRESSURE Refills: 9 Expr:08-11-23 13) HYDROCHLOROTHIAZIDE 25MG TAB Qty: 45 DISCONTINUED Issu:03-16-22 for 90 days Sig: TAKE ONE-HALF TABLET (EDIT) Last:06-29-22 BY MOUTH EVERY DAY Refills: 3 Expr:03-17-23 14) LISINOPRIL 40MG TAB Qty: 30 for 30 days DISCONTINUED Issu:08-10-22 Sig: TAKE ONE TABLET BY MOUTH EVERY (EDIT) Last:01-07-23 DAY FOR BLOOD PRESSURE Refills: 9 Expr:08-11-23 15) LISINOPRIL 40MG TAB Qty: 45 for 90 days DISCONTINUED Issu:03-16-22 Sig: TAKE ONE-HALF TABLET BY MOUTH Refills: 3 Last:03-16-22 EVERY DAY Expr:03-17-23 16) METOPROLOL SUCCINATE 50MG SA TAB Qty: DISCONTINUED Issu:08-10-22 30 for 30 days Sig: TAKE ONE TABLET (EDIT) Last:01-07-23 BY MOUTH AT BEDTIME FOR BLOOD PRESSURE Refills: 9 Expr:08-11-23 17) METOPROLOL SUCCINATE 50MG SA TAB Qty: DISCONTINUED Issu:06-29-22 90 for 90 days Sig: TAKE ONE TABLET (EDIT) Last:06-29-22 BY MOUTH AT BEDTIME Refills: 3 Expr:06-30-23 18) METOPROLOL SUCCINATE 50MG SA TAB Qty: DISCONTINUED Issu:03-16-22 45 for 90 days Sig: TAKE ONE-HALF (EDIT) Last:06-29-22 TABLET BY MOUTH AT BEDTIME Refills: 3 Expr:03-17-23 19) NITROFURANTOIN MONO/MACRO 100MG SA CAP DISCONTINUED Issu:10-11-22 Qty: 15 for 30 days Sig: TAKE ONE Refills: 3 Last:10-12-22 CAPSULE BY MOUTH EVERY DAY DIRECTED Expr:10-12-23 TO PREVENT URINARY TRACT INFECTION AFTER SWIMMING 20) OLOPATADINE HCL 0.1% OPH SOLN Qty: 15 DISCONTINUED Issu:03-16-22 for 75 days Sig: INSTILL 1 DROP IN Refills: 2 Last:11-09-22 BOTH EYES TWICE A DAY Expr:03-17-23 21) POISE PAD,MODERATE ABSORBENCY Qty: 120 DISCONTINUED Issu:11-02-22 for 30 days Sig: USE 1 PAD (EDIT) Last:11-04-22 DIRECTED Refills: 3 Expr:11-03-23 32 Total Medications /baltazar/ Natalia Ely MD STAFF PHYSICIAN Signed: 03/16/2023 15:58 03/16/2023 ADDENDUM STATUS: COMPLETED Please let patient know that 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 The lesion was not removed in its entirety, meaning that there is still some of the cancerous lesion present at the site of the biopsy. I have placed a dermatology referral, and they should be contacting her to schedule. /talat Ely MD STAFF PHYSICIAN Signed: 03/16/2023 16:00 Receipt Acknowledged By: 03/16/2023 16:03 /baltazar/ MICKI JAIN REGISTERED NURSE 03/16/2023 ADDENDUM STATUS: COMPLETED Vet informed of the above, no additional questions or concerns at this time. /talat JAIN REGISTERED NURSE Signed: 03/16/2023 16:03 NATALIA TREJO [facility] Mar 15, 2023 10:10 AM [facility]: LOCAL TITLE: [facility] STANDARD TITLE: [facility] DATE OF NOTE: MAR 15, 2023@10:10 ENTRY DATE: MAR 15, 2023@10:10:10 AUTHOR: MALCOLM VALLADARES EXP COSIGNER: URGENCY: STATUS: COMPLETED TYPE OF VISIT: Appointment Check In Type of appointment: In-person appointment REASON FOR VISIT: annual: left eye/face twitching ALLERGIES: Patient has answered NKA VITAL SIGNS: Blood Pressure: 124/73 (03/15/2023 10:08) Pulse: 75 (03/15/2023 10:08) Respiration: 18 (03/15/2023 10:08) Temperature: 97.5 F [36.4 C] (08/09/2022 09:27) Weight: 162.5 lb [73.71 kg] (03/15/2023 10:08) Height: 60.5 in [153.7 cm] (03/15/2023 10:08) BMI: 31.3 O2 Sat: 96% (03/15/2023 10:08) Pain: 0 (03/15/2023 10:08) PAIN SCREEN: Patient is not having significant pain that they wish to discuss with their provider today. MEDICATION Over the Counter/Herbal Medications: The patient denies taking any outside medications or herbals. Suicide Screen: C-SSRS Screening [place] Suicide Severity Rating Scale (C-SSRS) screener 1. Over the past month, have you wished you were or wished you could go to sleep and not wake up? No 2. Over the past month, have you had any actual thoughts of killing yourself? No 3. In your lifetime, have you ever done anything, started to do anything, or prepared to do anything to end your life (for example, collected pills, obtained a gun, gave away valuables, went to the roof but didn't jump)? Yes 4. If YES, was this within the past 3 months? (lead technical writer accidently enter yes to this question- and corrected it- patient is not suicidal incident happend many years ago and has not happened since and patient did see a provider at [place] to help her with this at the time) No Depression Screening: Perform PHQ-2 A PHQ-2 screen was performed. The score was 0 which is a negative screen for depression. Over the past two weeks, how often have you been bothered by the following problems? 1. Little interest or pleasure in doing things Not at all 2. Feeling down, depressed, or hopeless Not at all /baltazar/ MALCOLM VALLADARES LPN LICENSED PRACTICAL NURSE Signed: 03/15/2023 10:17 MALCOLM VALLADARES [facility]
--- OUTSIDE RECORDS SUMMARY | 2023-06-24 08:43 | XMS_ITS | Encounter Summary ---
Author Name [employer] Organization [employer] [facility] [employer] Address [address] [place] [address] Insurance Providers: All historical and current Section Date Range: From patient's date of to the date document was created. This section includes the names of all active insurance providers for the patient. Insurance Provider Type of Coverage Plan Name Start of Policy Coverage End of Policy Coverage Group Number Member ID Insurance Provider's Telephone Number Policy Talavera's Name Patient's Relationship to Policy Talavera [facility] ([id number]) PRESCRIPT ION GEHA May 30, 2005 [id number] [phone] SONIA MOBLEY PATIENT GEHA (SECONDARY ) PREFERRED PROVIDER ORGANIZAT ION (PPO) GEHA A/B PRIMA RY May 30, 2005 [id number] SONIA MOLBEY PATIENT GEHA (SECONDARY ) PREFERRED PROVIDER ORGANIZAT ION (PPO) GEHA A&B PRIMA RY May 30, 2005 [id number] [phone] SONIA MOBLEY PATIENT [facility] PREFERRED PROVIDER ORGANIZAT ION (PPO) DO NOT USE May 30, 2005 [id number] TONI BRITO PATIENT MEDICARE (WNR) MEDICARE (M) PART A Jan 29, 2000 PART A [id number] [phone] SONIA MOBLEY PATIENT MEDICARE (WNR) MEDICARE (M) PART B Jan 29, 2000 PART B [id number] [phone] SONIA MOBLEY PATIENT Selected Encounter This section includes the information on record at [place] for the Encounter. Date/Time Encounter Type Encounter Description Reason Provider Source Mar 17, 2023 01:34 PM Outpatient Encounter DERMATOLOGY ICD-10-CM C44.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 RIANATHIERRY CUEVA [facility] Encounter Template Text not used by [place] Assessments - Encounter Diagnoses This section includes the primary and secondary diagnoses documented for the Encounter. Date/Time Primary/Secondary Diagnosis Diagnosis Name Provider Source Mar 17, 2023 01:37 PM PRIMARY 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 RIANATHIERRY CUEVA [facility] Plan of Treatment: Future Appointments (+ 6 months) and Future Tests (+/- 45 days) The Plan of Treatment section includes future care activities for the patient from [facility] [place] [facility] This section includes future appointments and future orders which are active, pending or scheduled. Future Appointments This section includes appointments that were scheduled to occur 6 months from the date of the Encounter, up to a maximum of 20 appointments. The data comes from all [facility]. Appointment Date/Time Appointment Type Appointme nt Facility Name May 03, 2023 08:30 AM AMBULATORY - RE[facility]AB [facility] May 03, 2023 09:00 AM AMBULATORY - SURGERY [facility] May 09, 2023 03:00 PM AMBULATORY - REHAB [facility] May 18, 2023 09:15 AM AMBULATORY - SURGERY [facility] May 24, 2023 05:00 PM AMBULATORY - REHAB [facility] May 31, 2023 01:00 PM AMBULATORY - SURGERY [facility] Jun 28, 2023 10:40 AM AMBULATORY - SURGERY [facility] Aug 09, 2023 11:00 AM AMBULATORY - REHAB [facility] Lab Results: +/- 30 days of the encounter This section includes the Chemistry and Hematology Lab Results on record with [place] for the patient. Radiology Reports and Pathology Reports are provided separately, in subsequent sections. Lab Results This section contains the Chemistry/Hematology Results that were resulted 30 days before or 30 daysafter the date of the Encounter. Date/Time Source Result Type Result - Unit Interpretation Reference Range Comment Mar 15, 2023 08:22 AM [facility] BASIC METABOLIC PANEL+MG Specimen Type: PLASMA No comment entered. Ordering Provider: MARIMAR LEBRON Report Released Date/Time: Feb 10, 2023 09:08 AM Reporting Lab: [facility] [id number] Performing Lab: [facility] [id number] CREATININE 0.6 0.5-1.0 UREA NITROGEN 9 7-20 GLUCOSE 106 H 70-100 SODIUM 138 136-145 POTASSIUM 3.4 L 3.5-5.1 CHLORIDE 103 98-107 CO2 28 22-29 CALCIUM 9.3 8.4-10.2 MAGNESIUM 1.8 1.6-2.6 ANION GAP 7 5-15 .CREAT EGFR(CKD-EPI ) 86 >60 Mar 15, 2023 08:22 AM [facility] VIT D 25-OH,TOTAL Specimen Type: SERUM No comment entered. Ordering Provider: NATALIA TREJO Report Released Date/Time: Mar 16, 2022 11:04 AM Reporting Lab: [facility] [id number] Performing Lab: [facility] [id number] VIT D 25-OH,TOTAL 30 12-50 Mar 15, 2023 08:22 AM [facility] TSH W/REFLEX TO FREE T4 Specimen Type: PLASMA No comment entered. Ordering Provider: NATALIA TREJO Report Released Date/Time: Mar 16, 2022 11:04 AM Reporting Lab: [facility] [id number] Performing Lab: [facility] [id number] TSH 0.61 0.35-4.94 Mar 15, 2023 08:22 AM [facility] CBC Specimen Type: BLOOD No comment entered. Ordering Provider: NATALIA TREJO Report Released Date/Time: Mar 16, 2022 11:04 AM Reporting Lab: [facility] [id number] Performing Lab: [facility] [phone] WBC 5.71 4.0-11.0 RBC 4.77 4.0-5.4 HGB 14.2 11.5-16 HCT 40.8 34.5-48 MCV 85.5 80-100 MCH 29.8 27-33 MCHC 34.8 32.0-37.5 PLT 187 150-400 MPV 9.3 7.4-10.4 RDW 13.6 11.5-14.5 Mar 15, 2023 08:22 AM [facility] BASIC METABOLIC PANEL+MG Specimen Type: PLASMA No comment entered. Ordering Provider: NATALIA RTEJO Report Released Date/Time: Mar 16, 2022 11:04 AM Reporting Lab: [facility] [id number] Performing Lab: [facility] Mar 15, 2023 08:22 AM [facility] LIPID PANEL,NON-FASTING Specimen Type: PLASMA No comment entered. Ordering Provider: NATALIA TREJO Report Released Date/Time: Mar 16, 2022 11:04 AM Reporting Lab: [facility] [id number] Performing Lab: [facility] Mar 15, 2023 08:22 AM [facility] HEMOGLOBIN A1C Specimen Type: BLOOD Comment: [...] Mar 16, 2022 11:04 AM Reporting Lab: [facility] [id number] Performing Lab: [facility] [id number] HEMOGLOBIN A1C 6.0 4.0-6.0 Social History: Smoking Status (Most current) and Tobacco Use (All prior to encounter date) This section includes the most current, and the historical, smoking and tobacco- related health factors from the [place] facility where the Encounter took place. Current Smoking Status This section includes the most current smoking, or tobacco-related health factor, from the [place] facility where the Encounter took place. Date/Time Current Smoking Status Comment Robyn ity October 18, 2022 10:00 AM VA-TOBACCO NEVER USED [facility] Tobacco Use History This section includes a history of the smoking, or tobacco-related health factors, that were collected on or before the date of the Encounter. The data comes from the [place] facility where the Encounter took place. Date/Time Smoking Status/Tobacco Use Comment F acility September 28, 2021 09:30 AM VA-TOBACCO NEVER USED [facility] Nov 10, 2020 08:30 AM VA-TOBACCO NEVER USED [facility] Pathology Reports: +/- 30 days of [...] the Encounter. The data comes from all [place] treatment facilities. Date/Time Pathology Report Provider Source Mar 16, 2023 02:58 PM [facility] SURGICAL PATHOL OGY REPORT: LOCAL TITLE: LR SURGICAL PATHOLOGY REPORT STANDARD TITLE: PATHOLOGY REPORT DATE OF NOTE: MAR 16, 2023@14:58:43 ENTRY DATE: MAR 16, 2023@14:58:43 AUTHOR: ALICIA KAUFMAN EXP COSIGNER: URGENCY: STATUS: COMPLETED $APHDR Reporting Lab: [facility] [CLIA# [id number]] [place] [address] - - - - - - - [...] - PATHOLOGY REPORT Accession No. [id number] - - - - - - - [...] - PATHOLOGY REPORT Accession No. [id number] - - - - - - - [...] cm. The specimen is inked. CE. [facility] DESCRIPTION: Microscopic examination performed. 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, incompletely removed /baltazar/ ALICIA KAUFMAN MD STAFF PATHOLOGIST, PATHOLOGY & LABORATORY MED [facility] Signed Mar 16, 2023@14:58 Performing Laboratory: Surgical Pathology Report Performed By: [facility] [CLIA# [id number]] [place] [address] $FTR - - - - - - [...] - - - - - - - CARMENCITA MOBLEYDEJUAN ERICK STANDARD FORM 515 ID:[id number] SEX:F :1935 AGE: 88 LOC:[id number] PCP: Natalia Ely MD /baltazar/ ALICIA KAUFMAN MD STAFF PATHOLOGIST, PATHOLOGY & LABORATORY MED [facility] Signed: 03/16/2023 14:58 ALICIA KAUFMAN [facility] Encounter Notes: All associated encounter notes This section contains the clinical notes associated to the Encounter. Date/Time Encounter Note(s) Provider Source Mar 17, 2023 01:34 PM DERMATOLOGY CONSUL T: LOCAL TITLE: DERMATOLOGY CONSULT STANDARD TITLE: DERMATOLOGY CONSULT DATE OF NOTE: MAR 17, 2023@13:34 ENTRY DATE: MAR 17, 2023@13:34:36 AUTHOR: THIERRY MAYERS EXP COSIGNER: URGENCY: STATUS: COMPLETED DERMATOLOGY CONSULT Has ADDENDA Dermatology E-consult Regarding the following consult request Skin cancer type: Invasive Squamous Cell Carcinoma Location: L Shoulder Description/size:2-3mm nodule lesion Date of original diagnosis/biopsy: 03/15/23 Date last seen for this by Commercial Lease Administrator: never Pathology report 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, incompletely removed a/p 1)SCC of left shoulder -needs further excision- will place order for excision with CONNIE of 8 weeks -given new dx of NMSC patient also needs UBSE- will place RTC order for this cosinging surgery coordinator to help with scheduling the above/obtaining photos Staff physician note MEDICATION RECONCILIATION Outpatient I have reviewed the medication list for possible drug:drug interactions or contraindications prior to ordering new medications during this visit. /baltazar/ THIERRY MAYERS MD STAFF PHYSICIAN Signed: 03/17/2023 13:37 Receipt Acknowledged By: 03/28/2023 11:51 /baltazar/ THELMA YANEZ senior software development engineer Nurse Surgery Coordinator 03/24/2023 ADDENDUM STATUS: COMPLETED I have attem[rolando to reach the to schedule and excision and discuss photo per provider. No answer, I left vm with my name and phone number. /baltazar/ THELMA YANEZ RNsenior software development engineer Nurse Surgery Coordinator Signed: 03/24/2023 12:[address] [facility]
--- OUTSIDE RECORDS SUMMARY | 2023-06-24 08:43 | XMS_ITS | Encounter Summary ---
Author Name [facility] of [facility] Organization [facility] Address [address] [place] [address] Insurance Providers: All historical and current Section Date Range: From patient's date of to the date document was created. This section includes the names of all active insurance providers for the patient. Insurance Provider Type of Coverage Plan Name Start of Policy Coverage End of Policy Coverage Group Number Member ID Insurance Provider's Telephone Number Policy Talavera's Name Patient's Relationship to Policy Talavera [facility] ([id number]) PRESCRIPT ION GEHA May 30, 2005 [id number] [phone] SONIA MOBLEY PATIENT GEHA (SECONDARY ) PREFERRED PROVIDER ORGANIZAT ION (PPO) GEHA A&B PRIMA RY May 30, 2005 [id number] [phone] SONIA MOBLEY PATIENT GEHA (SECONDARY ) PREFERRED PROVIDER ORGANIZAT ION (PPO) GEHA A/B PRIMA RY May 30, 2005 [id number] SONIA MOBLEY PATIENT [facility] PREFERRED PROVIDER ORGANIZAT ION (PPO) DO NOT USE May 30, 2005 [id number] TONI BRITO PATIENT MEDICARE (WNR) MEDICARE (M) PART A Jan 29, 2000 PART A [id number] [phone] SONIA MOBLEY PATIENT MEDICARE (WNR) MEDICARE (M) PART B Jan 29, 2000 PART B [id number] [phone] SONIA MOBLEY PATIENT Selected Encounter This section includes the information on record at [place] for the Encounter. Date/Time Encounter Type Encounter Description Reason Provider Source Mar 15, 2023 11:00 AM Outpatient Encounter COMP [facility] DOMINIC TREJO May Encounter Template Text not used by [place] Plan of Treatment: Future Appointments (+ 6 months) and Future Tests (+/- 45 days) The Plan of Treatment section includes future care activities for the [facility] [place] [facility] This section includes future appointments and future orders which are active, pending or scheduled. Future Appointments This section includes appointments that were scheduled to occur 6 months from the date of the Encounter, up to a maximum of 20 appointments. The data comes from all [place] treatment [facility]. Appointment Date/Time Appointment Type Appointme nt Facility Name May 03, 2023 08:30 AM AMBULATORY - RE[facility]AB [facility] May 03, 2023 09:00 AM AMBULATORY - SURGERY [facility] May 09, 2023 03:00 PM AMBULATORY - REHAB [facility] May 18, 2023 09:15 AM AMBULATORY - SURGERY [facility] May 24, 2023 05:00 PM AMBULATORY - REHAB [facility] May 31, 2023 01:00 PM AMBULATORY - SURGERY [facility] Jun 28, 2023 10:40 AM AMBULATORY - SURGERY [facility] Aug 09, 2023 11:00 AM AMBULATORY - REHAB [facility] Lab Results: +/- 30 days of the encounter This section includes the Chemistry and Hematology Lab Results on record with [place] for the patient. Radiology Reports and Pathology Reports are provided separately, in subsequent sections. Lab Results This section contains the Chemistry/Hematology Results that were resulted 30 days before or 30 daysafter the date of the Encounter. Date/Time Source Result Type Result - Unit Interpretation Reference Range Comment Mar 15, 2023 08:22 AM [facility] BASIC METABOLIC PANEL+MG Specimen Type: PLASMA No comment entered. Ordering Provider: MARIMAR LEBRON Report Released Date/Time: Feb 10, 2023 09:08 AM Reporting Lab: [facility] [id number] Performing Lab: [facility] [address] CREATININE 0.6 0.5-1.0 UREA NITROGEN 9 7-20 GLUCOSE 106 H 70-100 SODIUM 138 136-145 POTASSIUM 3.4 L 3.5-5.1 CHLORIDE 103 98-107 CO2 28 22-29 CALCIUM 9.3 8.4-10.2 MAGNESIUM 1.8 1.6-2.6 ANION GAP 7 5-15 .CREAT EGFR(CKD-EPI ) 86 >60 Mar 15, 2023 08:22 AM [facility] VIT D 25-OH,TOTAL Specimen Type: SERUM No comment entered. Ordering Provider: DOMINIC TREJO Report Released Date/Time: Mar 16, 2022 11:04 AM Reporting Lab: [facility] [id number] Performing Lab: [facility] [address] VIT D 25-OH,TOTAL 30 12-50 Mar 15, 2023 08:22 AM [facility] TSH W/REFLEX TO FREE T4 Specimen Type: PLASMA No comment entered. Ordering Provider: DOMINIC TREJO Report Released Date/Time: Mar 16, 2022 11:04 AM Reporting Lab: [facility] [id number] Performing Lab: [facility] [address] TSH 0.61 0.35-4.94 Mar 15, 2023 08:22 AM [facility] CBC Specimen Type: BLOOD No comment entered. Ordering Provider: DOMINIC TREJO Report Released Date/Time: Mar 16, 2022 11:04 AM Reporting Lab: [facility] [address] Performing Lab: [facility] [address] WBC 5.71 4.0-11.0 RBC 4.77 4.0-5.4 HGB 14.2 11.5-16 HCT 40.8 34.5-48 MCV 85.5 80-100 MCH 29.8 27-33 MCHC 34.8 32.0-37.5 PLT 187 150-400 MPV 9.3 7.4-10.4 RDW 13.6 11.5-14.5 Mar 15, 2023 08:22 AM [facility] BASIC METABOLIC PANEL+MG Specimen Type: PLASMA No comment entered. Ordering Provider: DOMINIC TREJO Report Released Date/Time: Mar 16, 2022 11:04 AM Reporting Lab: [facility] [address] Performing Lab: [facility] Mar 15, 2023 08:22 AM [facility] LIPID PANEL,NON-FASTING Specimen Type: PLASMA No comment entered. Ordering Provider: DOMINIC TREJO Report Released Date/Time: Mar 16, 2022 11:04 AM Reporting Lab: [facility] [address] Performing Lab: [facility] Mar 15, 2023 08:22 AM [facility] HEMOGLOBIN A1C Specimen Type: BLOOD Comment: Values [...] Mar 16, 2022 11:04 AM Reporting Lab: [facility] [phone] Performing Lab: [facility] [address] HEMOGLOBIN A1C 6.0 4.0-6.0 Vital Signs: All taken on the encounter date This section contains inpatient and outpatient Vital Signs collected on the date of the Encounter. Date/Time Temperature Pulse Blood Pressure Respiratory Rate SP02 Pain Height Weight Body Mass Index Source Mar 15, 2023 10:08 AM 75 /min 124/73 mm[Hg] 18 /min 96 % 0 60.5 in 162.5 lb 31 [facility] Social History: Smoking Status (Most current) [...] Robyn baez October 18, 2022 10:00 AM [place]-TOBACCO NEVER USED [facility] Tobacco Use History This section includes a history of the smoking, or tobacco-related health factors, that were collected on or before the date of the Encounter. The data comes from the [place] facility where the Encounter took place. Date/Time Smoking Status/Tobacco Use Comment F acnelia September 28, 2021 09:30 AM [place]-TO[facility]ACCO NEVER USED [facility] Nov 10, 2020 08:30 AM [facility]-TO[facility]ACCO NEVER USED [facility] Pathology Reports: +/- 30 days of the [...] comes from all [place] treatment facilities. Date/Time Pathology Report Provider Source Mar 16, 2023 02:58 PM LR SURGICAL PATHOL OGY REPORT: LOCAL TITLE: LR SURGICAL PATHOLOGY REPORT STANDARD TITLE: PATHOLOGY REPORT DATE OF NOTE: MAR 16, 2023@14:58:43 ENTRY DATE: MAR 16, 2023@14:58:43 AUTHOR: ALICIA KAUFMAN EXP COSIGNER: URGENCY: STATUS: COMPLETED $APHDR Reporting Lab: [facility] [CLIA# [id number]] [place] [address] - - - - - - - [...] - PATHOLOGY REPORT Accession No. [id number] - - - - - - - [...] - - - POSTOPERATIVE DIAGNOSIS: Surgeon/physician: DOMINIC EYL MD =-=-=-=-=-=-=-=-=-=-=-=-=-=-=- =-=-=-=-=-=-=-=-=-=-=-=-=-=-=- =-=-=-=-=-=-=-=-=-= - - - - - - - - - - - - - - - - - - - - - - - - - - - - - - - - - - - - - - - - PATHOLOGY REPORT Accession No. [id number] - - - - - - - [...] [facility] MICROSCOPIC DESCRIPTION: Microscopic examination performed. 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, incompletely removed /es/ ALICIA KAUFMAN MD STAFF PATHOLOGIST, PATHOLOGY & LABORATORY MED [facility] Signed Mar 16, 2023@14:58 Performing Laboratory: Surgical Pathology Report Performed By: [facility] [CLIA# [id number]] [place] [address] $FTR - - - - - - [...] - - ALICE MOBLEY STANDARD FORM 515 ID:[id number] SEX:F :1935 AGE: 88 LOC:[id number] PCP: Dominic Ely MD /baltazar/ ALICIA KAUFMAN MD STAFF PATHOLOGIST, PATHOLOGY & LABORATORY MED [facility] Signed: 03/16/2023 14:58 ALICIA KAUFMAN [facility] Encounter Notes: All associated encounter notes This section contains the clinical notes associated to the Encounter. Date/Time Encounter Note(s) Provider Source Mar 15, 2023 12:02 PM ADMINISTRATIVE NOT E: LOCAL TITLE: AFTER VISIT SUMMARY NOTE STANDARD TITLE: ADMINISTRATIVE NOTE DICT DATE: MAR 15, 2023@12:02:25 ENTRY DATE: MAR 15, 2023@12:02:25 DICTATED BY: WEI TREJO EXP COSIGNER: URGENCY: STATUS: COMPLETED The patient was provided with a copy of an after-visit summary at the conclusion of the visit. A copy of the after-visit summary provided to the patient is available in [employer]. SCANNED DOCUMENT SIGNATURE NOT REQUIRED Electronically Filed: 03/15/2023 by: Dominic Ely MD STAFF PHYSICIAN DOMINIC TREJO [facility] Mar 15, 2023 09:48 AM ADVANCE DIRECTIVE: LOCAL TITLE: AD NOTIFICATION AND SCREENING STANDARD TITLE: ADVANCE DIRECTIVE DATE OF NOTE: MAR 15, 2023@09:48 ENTRY DATE: MAR 15, 2023@09:48:12 AUTHOR: GRAHAM MAN EXP COSIGNER: URGENCY: STATUS: COMPLETED ADVANCE DIRECTIVE NOTIFICATION: I was unable to give the patient written notification of the following rights because: Comment: declined ADVANCE DIRECTIVE SCREENING: Does patient have an Advance Directive? The patient has an Advance Directive. Does the patient wish to make any changes or revoke their current Advance Directive? Yes, the patient has an Advance Directive, but it is not in the medical record. Retsof was asked to obtain a copy for their medical record. /baltazar/ ADELA MAN ADVANCED TOLL BOOTH OPERATOR Signed: 03/15/2023 09:48 GRAHAM MAN [facility]
--- OUTSIDE RECORDS SUMMARY | 2023-06-24 08:44 | XMS_ITS | Encounter Summary ---
Author Name [facility] Organization [facility] Address [address] [place] [address] Insurance Providers: All historical and current Section Date Range: From patient's date of to the date document was created. This section includes the names of all active insurance providers for the patient. Insurance Provider Type of Coverage Plan Name Start of Policy Coverage End of Policy Coverage Group Number Member ID Insurance Provider's Telephone Number Policy Talavera's Name Patient's Relationship to Policy Talavera [facility] ([id number]) PRESCRIPT ION GEHA May 30, 2005 [id number] [phone] SONIA MOBLEY PATIENT GEHA (SECONDARY ) PREFERRED PROVIDER ORGANIZAT ION (PPO) GEHA A/B PRIMA RY May 30, 2005 [id number] SONIA MOBLEY PATIENT GEHA (SECONDARY ) PREFERRED PROVIDER ORGANIZAT ION (PPO) GEHA A&B PRIMA RY May 30, 2005 [id number] [phone] SONIA MOBLEY PATIENT [facility] PREFERRED PROVIDER ORGANIZAT ION (PPO) DO NOT USE May 30, 2005 [id number] [phone] TONI BRITO PATIENT MEDICARE (WNR) MEDICARE (M) PART A Jan 29, 2000 PART A [id number] [phone] SONIA MOBLEY PATIENT MEDICARE (WNR) MEDICARE (M) PART B Jan 29, 2000 PART B [id number] [phone] SONIA MOBLEY PATIENT Selected Encounter This section includes the information on record at [place] for the Encounter. Date/Time Encounter Type Encounter Description Reason Provider Source May 03, 2023 10:22 AM OFF/OP EST MAY X REQ PHY/QHP COMP [facility] GNDR DIVERSE PC ICD-10-CM Z71.9 Counseling, unspecified MICHAEL BACON IHMay Encounter Template Text not used by [place] Assessments - Encounter Diagnoses This section includes the primary and secondary diagnoses documented for the Encounter. Date/Time Primary/Secondary Diagnosis Diagnosis Name Provider Source May 12, 2023 03:44 PM PRIMARY Counseling, unspecified PEGMICHAEL Sam [facility] Plan of Treatment: Future Appointments (+ 6 months) and Future Tests (+/- 45 days) The Plan of Treatment section includes future care activities for the patient from all [place] [facility] This section includes future appointments and future orders which are active, pending or scheduled. Future Appointments This section includes appointments that were scheduled to occur 6 months from the date of the Encounter, up to a maximum of 20 appointments. The data comes from all [facility]. Appointment Date/Time Appointment Type Appointme nt Facility Name May 09, 2023 03:00 PM [facility] May 18, 2023 09:15 AM AMBULATORY - SURGERY [facility] May 24, 2023 05:00 PM [facility] May 31, 2023 01:00 PM AMBULATORY - SURGERY [facility] Jun 28, 2023 10:40 AM AMBULATORY - SURGERY [facility] Aug 09, 2023 11:00 AM AMBULATORY - REHAB [facility] Active, Pending, and Scheduled Orders This section includes a listing of several types of active, pending, and scheduled orders, including clinic medications orders, diagnostic test orders, procedure orders and consult orders; where the start date of the order is 45 days before the date of the Encounter or 45 days after the date of theEncounter. The data comes from all [facility]. Test Date/Time Test Type Test Details Facility Name Jun 07, 2023 03:06 PM Consult Order [facility]-MRI Cons [employer] Supervisor's Choice [facility] Jun 09, 2023 01:13 PM Pharmacy - Clinic Medication Order [facility] Social History: Smoking Status (Most current) [...] 18, 2022 10:00 AM [place]-TOBACCO NEVER USED [facility] Tobacco Use History This section includes a history of the smoking, or tobacco-related health factors, that were collected on or before the date of the Encounter. The data comes from the [place] facility where the Encounter took place. Date/Time Smoking Status/Tobacco Use Comment F acnelia September 28, 2021 09:30 AM [facility]-TOBACCO NEVER USED [facility] Nov 10, 2020 08:30 AM VA-TOBACCO NEVER USED [facility] Pathology Reports: +/- 30 days of [...] treatment facilities. Date/Time Pathology Report Provider Source May 20, 2023 11:08 AM LR SURGICAL PATHOL LINO REPORT: LOCAL TITLE: LR SURGICAL PATHOLOGY REPORT STANDARD TITLE: PATHOLOGY REPORT DATE OF NOTE: MAY 20, 2023@11:08:01 ENTRY DATE: MAY 20, 2023@11:08:01 AUTHOR: BRIAN PARADA COSIGNER: URGENCY: STATUS: COMPLETED $APHDR Reporting Lab: [facility] [CLIA# [id number]] [place] [address] - - - - - - - [...] - - - PATHOLOGY REPORT Accession No. [id number] - - - - - - - - - - - - - - - - - - - - - - - - - - - - - - - - - - - - - - - - $TEXT Submitted by: DICK WASSERMAN V Date obtained: May 18, 2023 - - - - - - - - - - - - - - - - - - - - - - - - - - - - - - - - - - - - - - - - Specimen (Received May 19, 2023 08:11): L SHOULDER - - - - - - - - - - - - - - - - - - - - - - - - - - - - - - - - - - - - - - - - BRIEF CLINICAL HISTORY: bx proven SCC Procedure: WLE - - - - - - - - - - - - - - - - - - - - - - - - - - - - - - - - - - - - - - - - PREOPERATIVE DIAGNOSIS: - - - - - - - [...] - - - - POSTOPERATIVE DIAGNOSIS: Surgeon/physician: DICK WASSERMAN =-=-=-=-=-=-=-=-=-=-=-=-=-= -=-=-=-=-=-=-=-=-=-=-=-=-=- =-=-=-=-=-=-=-=-=-=-=-=-= - - - - - - - - - - - - - - - - - - - - - - - - - - - - - - - - - - - - - - - - PATHOLOGY REPORT Accession No. [id number] - - - - - - - - - - - - - - - - - - - - - - - - - - - - - - - - - - - - - - - - GROSS DESCRIPTION: The requisition form and specimen(s) identification is confirmed. The specimen is labeled left shoulder and consists of a skin excision measuring 3.0 x 1.5 x 0.6 cm. The skin surface has a central area of poorly circumscribed scarring measuring approximately 0.8 cm in diameter. The specimen is oriented by a suture that is arbitrarily designated as the 12 o'clock margin; the 12 o'clock to 6 o'clock margin is inked black and the 6 o'clock to 12 o'clock margin is inked blue. Serial cross sections from the 12 o'clock margin to the 6 o'clock margin are submitted in cassettes A and B. Summary of sections: A, cross sections 12 o'clock half; B, cross sections 6 o'clock half; C, 12 o'clock tip, en face; D, 6 o'clock tip, en face. CE. (D) SMccoy/sd MICROSCOPIC DESCRIPTION: Microscopic examination performed. CI. DIAGNOSIS: Skin; left shoulder; excisional biopsy-- -no evidence of residual carcinoma -román /baltazar/ BRIAN PARADA M.D. STAFF PATHOLOGIST Signed May 20, 2023@11:08 Performing Laboratory: Surgical Pathology Report Performed By: [facility] [CLIA# [id number]] [place] [address] $FTR - - - - - - - - - - - - - - - - - - - - - - - - - - - - - - - - - - - - - - - - (End of report) BRIAN PARADA MD jennifer Date May 20, 2023 - - - - - - - - - - - - - - - - - - - - - - - - - - - - - - - - - - - - - - - - ALICE MOBLEY STANDARD FORM 515 ID:[id number] SEX:F :1935 AGE: 88 LOC:58137 PCP: Natalia Sales MD /baltazar/ BRIAN PARADA M.D. STAFF PATHOLOGIST Signed: 05/20/2023 11:08 BRIAN PARADA [facility] Encounter Notes: All associated encounter notes This section contains the clinical notes associated to the Encounter. Date/Time Encounter Note(s) Provider Source May 03, 2023 10:22 AM [facility]: LOCAL TITLE: [facility] STANDARD TITLE: [facility] DATE OF NOTE: MAY 03, 2023@10:22 ENTRY DATE: MAY 03, 2023@10:22:57 AUTHOR: MICHAEL BACON EXP COSIGNER: URGENCY: STATUS: COMPLETED TYPE OF VISIT: Nurse Clinic, Walkin REASON FOR VISIT: Requesting refill on medications and clarification on time of day to take each medication. ALLERGIES: FACILITY ALLERGY/ADR -------- No Remote Allergy/ADR Data available for this patient [facility] No Known Allergies MEDICATION Active Outpatient Medications (including Supplies): ASPIRIN 81MG CHEW TAB CHEW ONE TABLET BY MOUTH EVERY DAY ACTIVE (S) ATORVASTATIN CALCIUM 80MG TAB TAKE ONE TABLET BY MOUTH ACTIVE (S) EVERY DAY FOR CHOLESTEROL CALCIUM 250MG/VITAMIN D 125 UNT TAB TAKE 2 TABLETS BY ACTIVE MOUTH EVERY DAY HYDROCHLOROTHIAZIDE 25MG TAB TAKE ONE TABLET BY MOUTH ACTIVE (S) EVERY DAY FOR BLOOD PRESSURE LISINOPRIL 40MG TAB TAKE ONE TABLET BY MOUTH EVERY DAY FOR ACTIVE (S) BLOOD PRESSURE METOPROLOL SUCCINATE 50MG SA TAB TAKE ONE TABLET BY MOUTH ACTIVE (S) AT BEDTIME FOR BLOOD PRESSURE OLOPATADINE HCL 0.1% OPH SOLN INSTILL 1 DROP IN BOTH EYES ACTIVE (S) TWICE A DAY OMEPRAZOLE 20MG EC CAP TAKE ONE CAPSULE BY MOUTH TWICE A ACTIVE (S) WEEK ON AN EMPTY STOMACH, AT LEAST 30 MINUTES PRIOR TO A MEAL POISE PAD,MODERATE ABSORBENCY USE 1 PAD DIRECTED ACTIVE (S) ASSESSMENT/PLAN: Wet Chemistry Analyst refilled each medication, except calcium, to be mailed to patient per their request. Calcium unable to refill yet. Alerting PACT pharmacist for assistance with this medication to refill early. EDUCATION: BARRIERS/SPECIAL NEEDS: No barriers identified PREFERRED STYLE OF LEARNING: No preference stated PARTICIPANT(s): Patient, Family/Significant Other Other: Medication times written out by pharmacist prior, list verified with patient. Patient had no further questions or concerns. /baltazar/ RIK Phillips Registered Nurse Signed: 05/03/2023 10:24 MICHAEL BACON [facility]
--- OUTSIDE RECORDS SUMMARY | 2023-06-24 08:44 | XMS_ITS | Encounter Summary ---
Author Name Department of [facility] Organization Department of Vetera ns Affairs Address [address] [place] [address] Insurance Providers: All historical and current Section [...] Patient's Relationship to Policy Talavera [facility] ([id number]) PRESCRIPT ION GEHA May 30, 2005 [id number] SONIA MOBLEY PATIENT GEHA (SECONDARY ) PREFERRED PROVIDER ORGANIZAT ION (PPO) GEHA A/B PRIMA RY May 30, 2005 [id number] SONIA MOBLEY PATIENT GEHA (SECONDARY ) PREFERRED PROVIDER ORGANIZAT ION (PPO) GEHA A&B PRIMA RY May 30, 2005 [id number] SONIA MOBLEY PATIENT [facility] PREFERRED PROVIDER ORGANIZAT ION (PPO) DO NOT USE May 30, 2005 [id number] TONI BRITO PATIENT MEDICARE (WNR) MEDICARE (M) PART A Jan 29, 2000 PART A [id number] SONIA MOBLEY PATIENT MEDICARE (WNR) MEDICARE (M) PART B Jan 29, 2000 PART B [id number] [phone] SONIA MOBLEY PATIENT Selected Encounter This section includes the information on record at [place] for the Encounter. Date/Time Encounter Type Encounter Description Reason Pro vider Source Mar 17, 2023 02:10 PM Outpatient Encounter COMP WMS HLTH [facility]DR [facility] PC IHE Encounter Template Text not used by [place] Plan of Treatment: Future Appointments (+ 6 months) and Future Tests (+/- 45 days) The Plan of Treatment section includes future care activities for the patient from all [place] [facility] This section includes future appointments and future orders which are active, pending or scheduled. Future Appointments This section includes appointments that were scheduled to occur 6 months from the date of the Encounter, up to a maximum of 20 appointments. The data comes from all [place] treatment facilities. Appointment Date/Time Appointment Type Appointme nt Facility Name May 03, 2023 08:30 AM [facility] May 03, 2023 09:00 AM AM[facility]ULATORY - SURGERY [facility] May 09, 2023 03:00 PM AMBULATORY - REHAB [facility] May 18, 2023 09:15 AM AMBULATORY - SURGERY [facility] May 24, 2023 05:00 PM AMBULATORY - REHAB [facility] May 31, 2023 01:00 PM AMBULATORY - SURGERY [facility] Jun 28, 2023 10:40 AM AMBULATORY - SURGERY [facility] Aug 09, 2023 11:00 AM AMBULATORY - REHAB [facility] Lab Results: +/- 30 days of the encounter This section includes the Chemistry and Hematology Lab Results on record with [place] for the patient. Radiology Reports and Pathology Reports are provided separately, in subsequent sections. Lab Results This section contains the Chemistry/Hematology Results that were resulted 30 days before or 30 daysafter the date of the Encounter. Date/Time Source Result Type Result - Unit Interpretation Reference Range Comment Mar 15, 2023 08:22 AM [facility] BASIC METABOLIC PANEL+MG Specimen Type: PLASMA No comment entered. Ordering Provider: MARIMAR LEBRON Report Released Date/Time: Feb 10, 2023 09:08 AM Reporting Lab: [facility] [id number] Performing Lab: [facility] [address] CREATININE 0.6 0.5-1.0 UREA NITROGEN 9 7-20 GLUCOSE 106 H 70-100 SODIUM 138 136-145 POTASSIUM 3.4 L 3.5-5.1 CHLORIDE 103 98-107 CO2 28 22-29 CALCIUM 9.3 8.4-10.2 MAGNESIUM 1.8 1.6-2.6 ANION GAP 7 5-15 .CREAT EGFR(CKD-EPI ) 86 >60 Mar 15, 2023 08:22 AM [facility] TSH W/REFLEX TO FREE T4 Specimen Type: PLASMA No comment entered. Ordering Provider: DOMINIC TREJO Report Released Date/Time: Mar 16, 2022 11:04 AM Reporting Lab: [facility] [id number] Performing Lab: [facility] [address] TSH 0.61 0.35-4.94 Mar 15, 2023 08:22 AM [facility] VIT D 25-OH,TOTAL Specimen Type: SERUM No comment entered. Ordering Provider: DOMINIC TREJO Report Released Date/Time: Mar 16, 2022 11:04 AM Reporting Lab: [facility] [address] Performing Lab: [facility] [address] VIT D 25-OH,TOTAL 30 12-50 Mar 15, 2023 08:22 AM [facility] BASIC METABOLIC PANEL+MG Specimen Type: PLASMA No comment entered. Ordering Provider: DOMINIC TREJO Report Released Date/Time: Mar 16, 2022 11:04 AM Reporting Lab: [facility] [id number] Performing Lab: [facility] Mar 15, 2023 08:22 AM [facility] CBC Specimen Type: BLOOD No comment entered. Ordering Provider: DOMINIC TREJO Report Released Date/Time: Mar 16, 2022 11:04 AM Reporting Lab: [facility] [address] Performing Lab: [facility] [address] WBC 5.71 4.0-11.0 RBC 4.77 4.0-5.4 HGB 14.2 11.5-16 HCT 40.8 34.5-48 MCV 85.5 80-100 MCH 29.8 27-33 MCHC 34.8 32.0-37.5 PLT 187 150-400 MPV 9.3 7.4-10.4 RDW 13.6 11.5-14.5 Mar 15, 2023 08:22 AM [facility] LIPID PANEL,NON-FASTING Specimen Type: PLASMA No comment entered. Ordering Provider: DOMINIC TREJO Report Released Date/Time: Mar 16, 2022 11:04 AM Reporting Lab: [facility] [address] Performing Lab: [facility] Mar 15, 2023 08:22 AM [facility] HEMOGLOBIN A1C Specimen Type: BLOOD Comment: [...] Mar 16, 2022 11:04 AM Reporting Lab: [facility] [address] Performing Lab: [facility] [address] HEMOGLOBIN A1C 6.0 4.0-6.0 Social History: Smoking [...] Robyn ity October 18, 2022 10:00 AM [place]-TO[place]AC[place] NEVER USED [facility] Tobacco Use History This section includes a history of the smoking, or tobacco-related health factors, that were collected on or before the date of the Encounter. The data comes from the [place] facility where the Encounter took place. Date/Time Smoking Status/Tobacco Use Comment F acility September 28, 2021 09:30 AM [place]-TO[place]AC[place] NEVER USED [facility] Nov 10, 2020 08:30 AM [place] NEVER US[place] [facility] Pathology Reports: +/- 30 days of [...] comes from all [place] treatment facilities. Date/Time Pathology Report Provider Source Mar 16, 2023 02:58 PM LR SURGICAL PATHOL OGY REPORT: LOCAL TITLE: LR SURGICAL PATHOLOGY REPORT STANDARD TITLE: PATHOLOGY REPORT DATE OF NOTE: MAR 16, 2023@14:58:43 ENTRY DATE: MAR 16, 2023@14:58:43 AUTHOR: ALICIA KAUFMAN EXP COSIGNER: URGENCY: STATUS: COMPLETED $APHDR Reporting Lab: [facility] [CLIA# [id number]] [place] [address] - - - - - - - [...] - PATHOLOGY REPORT Accession No. [id number] - - - - - - - [...] - PATHOLOGY REPORT Accession No. [id number] - - - - - - - [...] Performing Laboratory: Surgical Pathology Report Performed By: [facility] [CLIA# [id number]] [place] [address] $FTR - - - - - - [...] - - ALICE MOBLEY STANDARD FORM 515 ID:[id number] SEX:F :1935 AGE: 88 LOC:[id number] PCP: Dominic Ely MD /baltazar/ ALICIA KAUFMAN MD STAFF PATHOLOGIST, PATHOLOGY & LABORATORY MED C Signed: 03/16/2023 14:58 ALICIA KAUFMAN [facility] Encounter Notes: All associated encounter notes This section contains the clinical notes associated to the Encounter. Date/Time Encounter Note(s) Provider Source Mar 17, 2023 02:10 PM REPORT OF CONTACT: LOCAL TITLE: APPOINTMENT SCHEDULING NOTE STANDARD TITLE: REPORT OF CONTACT DATE OF NOTE: MAR 17, 2023@14:10 ENTRY DATE: MAR 17, 2023@14:10:57 AUTHOR: TAMI TREVINO EXP COSIGNER: URGENCY: STATUS: COMPLETED Return to clinic / follow up order needs clarification or adjustment Order needing clarification Return to Clinic Order needed. Please place RTC-Thank you! /baltazar/ TAMI TREVINO Advanced MSA Signed: 03/17/2023 14:11 Receipt Acknowledged By: 03/17/2023 21:47 /baltazar/ Dominic Ely MD STAFF PHYSICIAN TAMI TREVINO [facility]
--- OUTSIDE RECORDS SUMMARY | 2023-06-24 08:44 | XMS_ITS | Encounter Summary ---
Author Name Department of Vetera Affairs Organization Department of Vetera Affairs Address [address] [place] [address] Insurance Providers: All historical and current Section [...] Name Patient's Relationship to Policy Talavera [facility] ([id number]) PRESCRIPT ION GEHA May 30, 2005 [id number] SONIA MOBLEY PATIENT GEHA (SECONDARY ) PREFERRED PROVIDER ORGANIZAT ION (PPO) GEHA A/B PRIMA RY May 30, 2005 [id number] [phone] SONIA MOBLEY PATIENT GEHA (SECONDARY ) PREFERRED PROVIDER ORGANIZAT ION (PPO) GEHA A&B PRIMA RY May 30, 2005 [id number] SONIA MOBLEY PATIENT [facility] PREFERRED PROVIDER ORGANIZAT ION (PPO) DO NOT USE May 30, 2005 [id number] [phone] TONI BRITO PATIENT MEDICARE (WNR) MEDICARE (M) PART A Jan 29, 2000 PART A [id number] [phone] SONIA MOBLEY PATIENT MEDICARE (WNR) MEDICARE (M) PART B Jan 29, 2000 PART B [id number] [phone] SONIA MOBLEY PATIENT Selected Encounter This section includes the information on record at [place] for the Encounter. Date/Time Encounter Type Encounter Description Reason Pro vider Source Mar 26, 2023 09:31 AM Outpatient Encounter DERMATOLOGY IHE Encounter Template Text not used by [place] Plan of Treatment: Future Appointments (+ 6 months) and Future Tests (+/- 45 days) The Plan of Treatment section includes future care activities for the patient from all [place] [facility] This section includes future appointments and future orders which are active, pending or scheduled. Future Appointments This section includes appointments that were scheduled to occur 6 months from the date of the Encounter, up to a maximum of 20 appointments. The data comes from all [facility]. Appointment Date/Time Appointment Type Appointme nt Facility Name May 03, 2023 08:30 AM [facility]ORY [facility] May 03, 2023 09:00 AM AMBULATORY - SURGERY [facility] May 09, 2023 03:00 PM AMBULATORY - REHAB [facility] May 18, 2023 09:15 AM AMBULATORY - SURGERY [facility] May 24, 2023 05:00 PM AMBULATORY - REHAB [facility] May 31, 2023 01:00 PM AMBULATORY - SURGERY [facility] Jun 28, 2023 10:40 AM AMBULATORY - SURGERY [facility] Aug 09, 2023 11:00 AM AMBULATORY - REHAB [facility] Lab Results: +/- 30 days of [...] Range Comment Mar 15, 2023 08:22 AM [facility] BASIC METABOLIC PANEL+MG Specimen Type: PLASMA No comment entered. Ordering Provider: MARIMAR LEBRON Report Released Date/Time: Feb 10, 2023 09:08 AM Reporting Lab: [facility] [address] Performing Lab: [facility] [address] CREATININE 0.6 0.5-1.0 UREA NITROGEN 9 7-20 GLUCOSE 106 H 70-100 SODIUM 138 136-145 POTASSIUM 3.4 L 3.5-5.1 CHLORIDE 103 98-107 CO2 28 22-29 CALCIUM 9.3 8.4-10.2 MAGNESIUM 1.8 1.6-2.6 ANION GAP 7 5-15 .CREAT EGFR(CKD-EPI ) 86 >60 Mar 15, 2023 08:22 AM [facility] TSH W/REFLEX TO FREE T4 Specimen Type: PLASMA No comment entered. Ordering Provider: DOMINIC TREJO Report Released Date/Time: Mar 16, 2022 11:04 AM Reporting Lab: [facility] [address] Performing Lab: [facility] [address] TSH 0.61 0.35-4.94 Mar 15, 2023 08:22 AM [facility] VIT D 25-OH,TOTAL Specimen Type: SERUM No comment entered. Ordering Provider: DOMINIC TREJO Report Released Date/Time: Mar 16, 2022 11:04 AM Reporting Lab: [facility] [address] Performing Lab: [facility] [address] VIT D 25-OH,TOTAL 30 12-50 Mar 15, 2023 08:22 AM [facility] BASIC METABOLIC PANEL+MG Specimen Type: PLASMA No comment entered. Ordering Provider: DOMINIC TREJO Report Released Date/Time: Mar 16, 2022 11:04 AM Reporting Lab: [facility] [address] Performing Lab: [facility] Mar 15, 2023 08:22 AM [facility] LIPID PANEL,NON-FASTING Specimen Type: PLASMA No comment entered. Ordering Provider: DOMINIC TREJO Report Released Date/Time: Mar 16, 2022 11:04 AM Reporting Lab: [facility] [address] Performing Lab: [facility] Mar 15, 2023 08:22 AM [facility] CBC Specimen Type: BLOOD No comment entered. Ordering Provider: DOMINIC TREJO Report Released Date/Time: Mar 16, 2022 11:04 AM Reporting Lab: [facility] [address] Performing Lab: [facility] [address] WBC 5.71 4.0-11.0 RBC 4.77 4.0-5.4 HGB 14.2 11.5-16 HCT 40.8 34.5-48 MCV 85.5 80-100 MCH 29.8 27-33 MCHC 34.8 32.0-37.5 PLT 187 150-400 MPV 9.3 7.4-10.4 RDW 13.6 11.5-14.5 Mar 15, 2023 08:22 AM [facility] HEMOGLOBIN A1C Specimen Type: BLOOD Comment: Values [...] Mar 16, 2022 11:04 AM Reporting Lab: [facility] [address] Performing Lab: [facility] [address] HEMOGLOBIN A1C 6.0 4.0-6.0 Social History: Smoking [...] Robyn ity October 18, 2022 10:00 AM [facility] Tobacco Use History This section includes a history of the smoking, or tobacco-related health factors, that were collected on or before the date of the Encounter. The data comes from the [place] facility where the Encounter took place. Date/Time Smoking Status/Tobacco Use Comment F acnelia September 28, 2021 09:30 AM [place] US[place] [facility] Nov 10, 2020 08:30 AM [place] NEVER USED [facility] Pathology Reports: +/- 30 days of the [...] COSIGNER: URGENCY: STATUS: COMPLETED $APHDR Reporting Lab: [facility] [CLIA# [id number]] [place] [address] - - - - - - - [...] - PATHOLOGY REPORT Accession No. [id number] - - - - - - - [...] - PATHOLOGY REPORT Accession No. [id number] - - - - - - - [...] cm. The specimen is inked. CE. [facility] DES[facility]: Microscopic examination performed. 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, incompletely removed /es/ ALICIA KAUFMAN MD STAFF PATHOLOGIST, PATHOLOGY & LABORATORY MED [facility] Signed Mar 16, 2023@14:58 Performing Laboratory: Surgical Pathology Report Performed By: [facility] [CLIA# [id number]] [place] [address] $FTR - - - - - - - - - - - - - - - - - - - - - - - - - - - - - - - - - - - - - - - - (End of report) ALICIA KAUFMAN MD [facility] Date Mar 16, 2023 - - - - - - - - - - - - - - - - - - - - - - - - - - - - - - - - - - - - - - - - ALICE MOBLEY STANDARD FORM 515 ID:[id number] SEX:F :1935 AGE: 88 LOC:[id number] PCP: Dominic Ely MD /baltazar/ ALICIA KAUFMAN MD STAFF PATHOLOGIST, PATHOLOGY & LABORATORY MED SVC Signed: 03/16/2023 14:58 ALICIA KAUFMAN [facility] Encounter Notes: All associated encounter notes This section contains the clinical notes associated to the Encounter. 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 Thank you. /baltazar/ GERMAN TUTTLE MSA LEAD FERN PICKER Signed: 03/26/2023 09:33 Receipt Acknowledged By: 03/28/2023 11:19 /baltazar/ THELMA YANEZ admissions consultant Nurse Surgery Coordinator JAREN RIOS [facility]
--- OUTSIDE RECORDS SUMMARY | 2023-06-24 08:44 | XMS_ITS | Encounter Summary ---
Author Name [facility] Organization [facility] Address [address] [place] [address] Insurance Providers: All historical and current Section [...] to Policy Talavera [facility] ([id number]) PRESCRIPT ION GEHA May 30, 2005 [id number] SONIA MOBLEY PATIENT GEHA (SECONDARY ) PREFERRED PROVIDER ORGANIZAT ION (PPO) GEHA A/B PRIMA RY May 30, 2005 [id number] SONIA MOBLEY PATIENT GEHA (SECONDARY ) PREFERRED PROVIDER ORGANIZAT ION (PPO) GEHA A&B PRIMA RY May 30, 2005 [id number] SONIA MOBLEY PATIENT [facility] PREFERRED PROVIDER ORGANIZAT ION (PPO) DO NOT USE May 30, 2005 [id number] TONI BRITO PATIENT MEDICARE (WNR) MEDICARE (M) PART A Jan 29, 2000 PART A [id number] SONIA MOBLEY PATIENT MEDICARE (WNR) MEDICARE (M) PART B Jan 29, 2000 PART B [id number] SONIA MOBLEY PATIENT Selected Encounter This section includes the information on record at [place] for the Encounter. Date/Time Encounter Type Encounter Description Reason Provider Source May 03, 2023 09:00 AM OFF/OP EST MAY X REQ PHY/QHP DERMATOLOGY ICD-10-CM L98.9 Disorder of the skin and subcutaneous tissue, unspecified JIM SEARS IHE Encounter Template Text not used by [place] Assessments - Encounter Diagnoses This section includes the primary and secondary diagnoses documented for the Encounter. Date/Time Primary/Secondary Diagnosis Diagnosis Name Provider Source May 11, 2023 08:15 AM PRIMARY Disorder of the skin and subcutaneous tissue, unspecified JIM SEARS [facility] Plan of Treatment: Future Appointments (+ 6 months) and Future Tests (+/- 45 days) The Plan of Treatment section includes future care activities for the patient from all [place] [facility] This section includes future appointments and future orders which are active, pending or scheduled. Future Appointments This section includes appointments that were scheduled to occur 6 months from the date of the Encounter, up to a maximum of 20 appointments. The data comes from all [facility]. Appointment Date/Time Appointment Type Appointme nt Facility Name May 09, 2023 03:00 PM AMBULATORY - RE[facility]AB [facility]IC[facility] May 18, 2023 09:15 AM AMBULATORY - SURGERY [facility] May 24, 2023 05:00 PM [facility] May 31, 2023 01:00 PM AMBULATORY - SURGERY [facility] Jun 28, 2023 10:40 AM AMBULATORY - SURGERY [facility] Aug 09, 2023 11:00 [facility] Active, Pending, and Scheduled Orders This section includes a listing of several types of active, pending, and scheduled orders, including clinic medications orders, diagnostic test orders, procedure orders and consult orders; where the start date of the order is 45 days before the date of the Encounter or 45 days after the date of theEncounter. The data comes from all [facility]. Test Date/Time Test Type Test Details Facility Name Jun 07, 2023 03:06 PM Consult Order COMMUNITY [facility]-MRI Cons Retail Store Clerk's Choice [facility] Jun 09, 2023 01:13 PM Pharmacy - Clinic Medication Order [facility] Social History: Smoking Status (Most current) [...] 18, 2022 10:00 AM [place] NEVER USED [facility] Tobacco Use History This section includes a history of the smoking, or tobacco-related health factors, that were collected on or before the date of the Encounter. The data comes from the [place] facility where the Encounter took place. Date/Time Smoking Status/Tobacco Use Comment F acnelia September 28, 2021 09:30 AM [place] NEVER US[place] [facility] Nov 10, 2020 08:30 AM [place]-TOBACCO NEVER USED [facility] Pathology Reports: +/- 30 days of [...] comes from all [place] treatment facilities. Date/Time Pathology Report Provider Source May 20, 2023 11:08 AM LR SURGICAL PATHOL LINO REPORT: LOCAL TITLE: LR SURGICAL PATHOLOGY REPORT STANDARD TITLE: PATHOLOGY REPORT DATE OF NOTE: MAY 20, 2023@11:08:01 ENTRY DATE: MAY 20, 2023@11:08:01 AUTHOR: BRIAN PARADA COSIGNER: URGENCY: STATUS: COMPLETED $APHDR Reporting Lab: [facility] [CLIA# [id number]] [place] [address] - - - - - - - [...] - - - PATHOLOGY REPORT Accession No. [id number] - - - - - - - [...] - - - - POSTOPERATIVE DIAGNOSIS: Surgeon/physician: DCIK WASSERMAN =-=-=-=-=-=-=-=-=-=-=-=-=-= -=-=-=-=-=-=-=-=-=-=-=-=-=- =-=-=-=-=-=-=-=-=-=-=-=-= - - - - - - - - - - - - - - - - - - - - - - - - - - - - - - - - - - - - - - - - PATHOLOGY REPORT Accession No. [id number] - - - - - - - [...] excisional biopsy-- -no evidence of residual carcinoma -scar /baltazar/ BRIAN PARADA M.D. STAFF PATHOLOGIST Signed May 20, 2023@11:08 Performing Laboratory: Surgical Pathology Report Performed By: [facility] [CLIA# [id number]] [place] [address] $FTR - - - - - - [...] - - ALICE MOBLEY STANDARD FORM 515 ID:[id number] SEX:F :1935 AGE: 88 LOC:[id number] PCP: Natalia Sales MD /baltazar/ BRIAN PARADA M.D. STAFF PATHOLOGIST Signed: 05/20/2023 11:08 BRIAN PARADA [facility] Encounter Notes: All associated encounter notes This section contains the clinical notes associated to the Encounter. Date/Time Encounter Note(s) Provider Source May 03, 2023 08:56 AM COMMUNICATION NOTE : LOCAL TITLE: PATIENT CONTACT NOTE - DERMATOLOGY STANDARD TITLE: COMMUNICATION NOTE DATE OF NOTE: MAY 03, 2023@08:56 ENTRY DATE: MAY 03, 2023@08:56:16 AUTHOR: SLAVA SEARS EXP COSIGNER: URGENCY: STATUS: COMPLETED Patient came in for nurse walk in to have photos of left shoulder taken. Photos taken and uploaded to chart. 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 /baltazar/ SLAVA SEARS D[facility]atology Clinic RN Signed: 05/03/2023 08:57 SLAVA SEARS [facility]
--- OUTSIDE RECORDS SUMMARY | 2023-06-24 08:44 | XMS_ITS | Encounter Summary ---
Author Name Department of [facility] Organization [facility] of [facility] Address [address] [place] [address] Insurance Providers: All historical and current Section Date Range: From patient's date of to the date document was created. This section includes the names of all active insurance providers for the patient. Insurance Provider Type of Coverage Plan Name Start of Policy Coverage End of Policy Coverage Group Number Member ID Insurance Provider's Telephone Number Policy Talavera's Name Patient's Relationship to Policy Talavera [facility] ([id number]) PRESCRIPT ION GEHA May 30, 2005 [id number] [id number] SONIA MOBLEY PATIENT GEHA (SECONDARY ) PREFERRED PROVIDER ORGANIZAT ION (PPO) GEHA A/B PRIMA RY May 30, 2005 [id number] SONIA MOBLEY PATIENT GEHA (SECONDARY ) PREFERRED PROVIDER ORGANIZAT ION (PPO) GEHA A&B PRIMA RY May 30, 2005 [id number] SONIA MOBLEY PATIENT [facility] PREFERRED PROVIDER ORGANIZAT ION (PPO) DO NOT USE May 30, 2005 [id number] TONI BRITO PATIENT MEDICARE (WNR) MEDICARE (M) PART A Jan 29, 2000 PART A [id number] [phone] SONIA MOBLEY PATIENT MEDICARE (WNR) MEDICARE (M) PART B Jan 29, 2000 PART B [id number] [phone] SONIA MOBLEY PATIENT Selected Encounter This section includes the information on record at [place] for the Encounter. Date/Time Encounter Type Encounter Description Reason Pro vider Source Mar 28, 2023 11:32 AM Outpatient Encounter TELEPHONE/SURGERY IHE Encounter Template Text not used by [place] Plan of Treatment: Future Appointments (+ 6 months) and Future Tests (+/- 45 days) The Plan of Treatment section includes future care activities for the [facility] This section includes future appointments and future orders which are active, pending or scheduled. Future Appointments This section includes appointments that were scheduled to occur 6 months from the date of the Encounter, up to a maximum of 20 appointments. The data comes from all [facility]. Appointment Date/Time Appointment Type Appointme nt Facility Name May 03, 2023 08:30 AM [facility] May 03, 2023 09:00 AM [facility] SURGERY [facility] May 09, 2023 03:00 [facility] May 18, 2023 09:15 AM AMBULATORY SURGERY [facility] May 24, 2023 05:00 PM AMBULATORY - REHAB [facility] May 31, 2023 01:00 PM AMBULATORY - SURGERY [facility] Jun 28, 2023 10:40 AM AMBULATORY - SURGERY [facility] Aug 09, 2023 11:00 AM AMBULATORY - REHAB [facility] Lab Results: +/- 30 days of the encounter This section includes the Chemistry and Hematology Lab Results on record with [place] for the patient. Radiology Reports and Pathology Reports are provided separately, in subsequent sections. Lab Results This section contains the Chemistry/Hematology Results that were resulted 30 days before or 30 daysafter the date of the Encounter. Date/Time Source Result Type Result - Unit Interpretation Reference Range Comment Mar 15, 2023 08:22 AM [facility] BASIC METABOLIC PANEL+MG Specimen Type: PLASMA No comment entered. Ordering Provider: MARIMAR LEBRON Report Released Date/Time: Feb 10, 2023 09:08 AM Reporting Lab: [facility] [id number] Performing Lab: [facility] [id number] CREATININE 0.6 0.5-1.0 UREA NITROGEN 9 7-20 GLUCOSE 106 H 70-100 SODIUM 138 136-145 POTASSIUM 3.4 L 3.5-5.1 CHLORIDE 103 98-107 CO2 28 22-29 CALCIUM 9.3 8.4-10.2 MAGNESIUM 1.8 1.6-2.6 ANION GAP 7 5-15 .CREAT EGFR(CKD-EPI ) 86 >60 Mar 15, 2023 08:22 AM [facility] TSH W/REFLEX TO FREE T4 Specimen Type: PLASMA No comment entered. Ordering Provider: DOMINIC TREJO Report Released Date/Time: Mar 16, 2022 11:04 AM Reporting Lab: [facility] [phone] Performing Lab: [facility] [id number] TSH 0.61 0.35-4.94 Mar 15, 2023 08:22 AM [facility] BASIC METABOLIC PANEL+MG Specimen Type: PLASMA No comment entered. Ordering Provider: DOMINIC TREJO Report Released Date/Time: Mar 16, 2022 11:04 AM Reporting Lab: [facility] [id number] Performing Lab: [facility] Mar 15, 2023 08:22 AM [facility] CBC Specimen Type: BLOOD No comment entered. Ordering Provider: DOMINIC TREJO Report Released Date/Time: Mar 16, 2022 11:04 AM Reporting Lab: [facility] [id number] Performing Lab: [facility] [phone] WBC 5.71 4.0-11.0 RBC 4.77 4.0-5.4 HGB 14.2 11.5-16 HCT 40.8 34.5-48 MCV 85.5 80-100 MCH 29.8 27-33 MCHC 34.8 32.0-37.5 PLT 187 150-400 MPV 9.3 7.4-10.4 RDW 13.6 11.5-14.5 Mar 15, 2023 08:22 AM [facility] VIT D 25-OH,TOTAL Specimen Type: SERUM No comment entered. Ordering Provider: DOMINIC TREJO Report Released Date/Time: Mar 16, 2022 11:04 AM Reporting Lab: [facility] [phone] Performing Lab: [facility] [id number] VIT D 25-OH,TOTAL 30 12-50 Mar 15, 2023 08:22 AM [facility] HEMOGLOBIN A1C Specimen Type: BLOOD [...] 11:04 AM Reporting Lab: [facility] [phone] Performing Lab: [facility] [id number] HEMOGLOBIN A1C 6.0 4.0-6.0 Mar 15, 2023 08:22 AM [facility] LIPID PANEL,NON-FASTING Specimen Type: PLASMA No comment entered. Ordering Provider: DOMINIC TREJO Report Released Date/Time: Mar 16, 2022 11:04 AM Reporting Lab: [facility] [phone] Performing Lab: [facility] Social History: Smoking Status (Most current) and Tobacco Use (All prior to encounter date) This section includes the most current, and the historical, smoking and tobacco- related health factors from the [place] facility where the Encounter took place. Current Smoking Status This section includes the most current smoking, or tobacco-related health factor, from the [place] facility where the Encounter took place. Date/Time Current Smoking Status Comment Robyn ity October 18, 2022 10:00 [facility] Tobacco Use History This section includes a history of the smoking, or tobacco-related health factors, that were collected on or before the date of the Encounter. The data comes from the [place] facility where the Encounter took place. Date/Time Smoking Status/Tobacco Use Comment F acility September 28, 2021 09:30 AM [place]-TOBACCO NEVER USED [facility] Nov 10, 2020 08:30 AM [place]-TOBACCO NEVER USED [facility] Pathology Reports: +/- 30 days [...] the Encounter. The data comes from all [place] treatment facilities. Date/Time Pathology Report Provider Source Mar 16, 2023 02:58 PM LR SURGICAL PATHOL OGY REPORT: LOCAL TITLE: LR SURGICAL PATHOLOGY REPORT STANDARD TITLE: PATHOLOGY REPORT DATE OF NOTE: MAR 16, 2023@14:58:43 ENTRY DATE: MAR 16, 2023@14:58:43 AUTHOR: ALICIA KAUFMAN EXP COSIGNER: URGENCY: STATUS: COMPLETED $APHDR Reporting Lab: [facility] [CLIA# [id number]] [place] [address] - - - - - - - [...] - PATHOLOGY REPORT Accession No. [id number] - - - - - - - [...] - PATHOLOGY REPORT Accession No. [id number] - - - - - - - [...] cm. The specimen is inked. CE. (D) [facility] DES[facility]: Microscopic examination performed. 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, incompletely removed /es/ ALICIA KAUFMAN MD STAFF PATHOLOGIST, PATHOLOGY & LABORATORY MED [facility] Signed Mar 16, 2023@14:58 Performing Laboratory: Surgical Pathology Report Performed By: [facility] [CLIA# [id number]] [place] [address] $FTR - - - - - - - - - - - - - - - - - - - - - - - - - - - - - - - - - - - - - - - - (End of report) ALICIA KAUFMAN MD [facility] Date Mar 16, 2023 - - - - - - - - - - - - - - - - - - - - - - - - - - - - - - - - - - - - - - - - ALICE MOBLEY STANDARD FORM 515 ID:[id number] SEX:F :1935 AGE: 88 LOC:[id number] PCP: Dominic Ely MD /baltazar/ ALICIA KAUFMAN MD STAFF PATHOLOGIST, PATHOLOGY & LABORATORY MED [facility] Signed: 03/16/2023 14:58 ALICIA KAUFMAN [facility] Encounter Notes: All associated encounter notes This section contains the clinical notes associated to the Encounter. Date/Time Encounter Note(s) Provider Source Mar 28, 2023 11:32 AM DERMATOLOGY [facility] OUTPATIENT NOTE: LOCAL TITLE: DERMATOLOGY CLINIC NURSING NOTE STANDARD TITLE: DERMATOLOGY NURSING OUTPATIENT NOTE DATE OF NOTE: MAR 28, 2023@11:32 ENTRY DATE: MAR 28, 2023@11:32:21 AUTHOR: THELMA YANEZ COSIGNER: URGENCY: STATUS: COMPLETED DERMATOLOGY CLINIC NURSING NOTE Has ADDENDA Dermatology Clinic Nursing Note Allergies: Patient has answered NKA No new Allergies. Pre-op Nursing Note Patient Information: Premedications abx prior dental work? No Pacemaker present? No Defibrillator present? No Deep Brain Stimulator present? No Other Implantable Device present? No Presently taking anticoagulants? Yes. aspirin Not discontinued preoperatively. aware. Bleeding or clotting disorder? No Covid vaccine completed? understands should he have cold/flu/covid symptoms on his appt date he should call and reschedule. Planned travel? No Procedure was explained expecting an hour appointment , wound care anticipated and follow up. I advised the patient he will have a nurse and staff doctor intermittently coming in and out of the room for supplies and checking progress of his procedure. Patient verbalized understanding. Yarelis is coming for an appt 05/03 830am and will plan to come into clinic for a photo afterwards. An appointment for skin surgery under local anesthesia was made for 05/18@915am. I advised the patient he may eat, drink, and take all their regular medications. We discussed length of procedure and post op wound care. No questions verbalized . I will mail an appointment letter and procedure information including my contact number. /talat YANEZ RN Dermatology Nurse Surgery Coordinator Signed: 03/28/2023 12:30 Receipt Acknowledged By: 03/30/2023 10:53 /es/ SLAVA SEARS Dermatology Clinic RN 05/03/2023 ADDENDUM STATUS: COMPLETED Patient came in for nurse walk in to have photos of left shoulder taken. Photos taken and uploaded to chart. 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 /baltazar/ SLAVA SEARS Dermatology Clinic RN Signed: 05/03/2023 08:54 THELMA YANEZ [facility]
--- OUTSIDE RECORDS SUMMARY | 2023-06-24 08:44 | XMS_ITS | Encounter Summary ---
Author Name [facility] Organization [facility] Address [address] [place] [address] Insurance Providers: All historical and current Section [...] Patient's Relationship to Policy Talavera [facility] ([id number]) PRESCRIPT ION GEHA May 30, 2005 [id number] SONIA GUTIERRES PATIENT GEHA (SECONDARY ) PREFERRED PROVIDER ORGANIZAT ION (PPO) GEHA A/B PRIMA RY May 30, 2005 [id number] SONIA GUTIERRES PATIENT GEHA (SECONDARY ) PREFERRED PROVIDER ORGANIZAT ION (PPO) GEHA A&B PRIMA RY May 30, 2005 [id number] SONIA GUTIERRES PATIENT [facility] PREFERRED PROVIDER ORGANIZAT ION (PPO) DO NOT USE May 30, 2005 [id number] TONI BRITO PATIENT MEDICARE (WNR) MEDICARE (M) PART A Jan 29, 2000 PART A [id number] [phone] SONIA GUTIERRES PATIENT MEDICARE (WNR) MEDICARE (M) PART B Jan 29, 2000 PART B [id number] [phone] SONIA GUTIERRES PATIENT Selected Encounter This section includes the information on record at [place] for the Encounter. Date/Time Encounter Type Encounter Description Reason Provider Source May 09, 2023 03:00 PM OFFICE O/P EST MOD 30-39 MIN NEUROLOGY ICD-10-CM G51.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, left VITOR THORNE May Encounter Template Text not used by [place] Assessments - Encounter Diagnoses This section includes the primary and secondary diagnoses documented for the Encounter. Date/Time Primary/Secondary Diagnosis Diagnosis Name Provider Source May 17, 2023 12:56 PM PRIMARY Clonic hemifacial spasm, left VITOR THORNE [facility] Plan of Treatment: Future Appointments (+ 6 months) and Future Tests (+/- 45 days) The Plan of Treatment section includes future care activities for the patient from all [facility]. This section includes future appointments and future orders which are active, pending or scheduled. Future Appointments This section includes appointments that were scheduled to occur 6 months from the date of the Encounter, up to a maximum of 20 appointments. The data comes from all [facility]. Appointment Date/Time Appointment Type Appointme nt Facility Name May 18, 2023 09:15 AM AMBULATORY - SURGERY [facility] May 24, 2023 05:00 PM [facility] May 31, 2023 01:00 PM [facility]UL[facility]ORY - SURGERY [facility] Jun 28, 2023 10:40 AM AMBULATORY - SURGERY [facility] Aug 09, 2023 11:00 AM AMBULATORY - REHAB [facility] Active, Pending, and Scheduled Orders This section includes a listing of several types of active, pending, and scheduled orders, including clinic medications orders, diagnostic test orders, procedure orders and consult orders; where the start date of the order is 45 days before the date of the Encounter or 45 days after the date of theEncounter. The data comes from all [facility]. Test Date/Time Test Type Test Details Facility Name Jun 07, 2023 03:06 PM Consult Order [facility]-MRI Cons Pricing Associate's Choice [facility] Jun 09, 2023 01:13 PM Pharmacy - Clinic Medication Order [facility] Vital Signs: All taken on the encounter date This section contains inpatient and outpatient Vital Signs collected on the date of the Encounter. Date/Time Temperature Pulse Blood Pressure Respiratory Rate SP02 Pain Height Weight Body Mass Index Source May 09, 2023 03:00 PM 98.2 F 67 /min 125/70 mm[Hg] 18 /min 97 % 0 162 lb 31 [place] [facility] Social History: Smoking Status (Most current) and Tobacco Use (All prior to encounter date) This section includes the most current, and the historical, smoking and tobacco- related health factors from the [place] facility where the Encounter took place. Current Smoking Status This section includes the most current smoking, or tobacco-related health factor, from the [place] facility where the Encounter took place. Date/Time Current Smoking Status Comment Facil ity October 18, 2022 10:00 AM [place]TO[facility]ACCO NEVER USED [facility] Tobacco Use History This section includes a history of the smoking, or tobacco-related health factors, that were collected on or before the date of the Encounter. The data comes from the [place] facility where the Encounter took place. Date/Time Smoking Status/Tobacco Use Comment F acnelia September 28, 2021 09:30 AM [place] NEVER US[place] [facility] Nov 10, 2020 08:30 AM [place]-TO[place]AC[place] NEVER USED [facility] Pathology Reports: +/- 30 days [...] the Encounter. The data comes from all [place] treatment facilities. Date/Time Pathology Report Provider Source May 20, 2023 11:08 AM LR SURGICAL PATHMUNA HUYNH REPORT: LOCAL TITLE: LR SURGICAL PATHOLOGY REPORT STANDARD TITLE: PATHOLOGY REPORT DATE OF NOTE: MAY 20, 2023@11:08:01 ENTRY DATE: MAY 20, 2023@11:08:01 AUTHOR: BRIAN PARADA COSIGNER: URGENCY: STATUS: COMPLETED $APHDR Reporting Lab: [facility] [CLIA# [id number]] [place] [address] - - - - - - - [...] - PATHOLOGY REPORT Accession No. [id number] - - - - - - - [...] - PATHOLOGY REPORT Accession No. [id number] - - - - - - - [...] 6 o'clock tip, en face. CE. [facility]: Microscopic examination performed. CI. DIAGNOSIS: Skin; left shoulder; excisional biopsy-- -no evidence of residual carcinoma -román /baltazar/ BRIAN PARADA M.D. STAFF PATHOLOGIST Signed May 20, 2023@11:08 Performing Laboratory: Surgical Pathology Report Performed By: [facility] [CLIA# [id number]] [place] [address] $FTR - - - - - - - - - - - - - - - - - - - - - - - - - - - - - - - - - - - - - - - - (End of report) BRIAN PARADA MD [facility] Date May 20, 2023 - - - - - - - - - - - - - - - - - - - - - - - - - - - - - - - - - - - - - - - - YARIEL GUTIERRES STANDARD FORM 515 ID:[id number] SEX:F :1935 AGE: 88 LOC:[id number] PCP: Natalia Sales MD /baltazar/ BRIAN PARADA M.D. STAFF PATHOLOGIST Signed: 05/20/2023 11:08 BRIAN PARADA [facility] Encounter Notes: All associated encounter notes This section contains the clinical notes associated to the Encounter. Date/Time Encounter Note(s) Provider Source May 09, 2023 03:06 PM PHYSICAL MEDICINE REHAB NURSING NOTE: LOCAL TITLE: REHAB MEDICINE CLINIC NURSING NOTE STANDARD TITLE: PHYSICAL MEDICINE REHAB NURSING NOTE DATE OF NOTE: MAY 09, 2023@15:06 ENTRY DATE: MAY 09, 2023@15:06:44 AUTHOR: JEANNETTE ORONA COSIGNER: URGENCY: STATUS: COMPLETED Type of visit: PM&R Appointment Check In: DR. THORNE Reason for Visit: RTC: BOTOX Vital Signs: Blood Pressure: 125/70 (05/09/2023 15:00) Pulse: 67 (05/09/2023 15:00) Respiration: 18 (05/09/2023 15:00) Temperature: 98.2 F [36.8 C] (05/09/2023 15:00) Weight: 162 lb [73.48 kg] (05/09/2023 15:00) Height: 60.5 in [153.7 cm] (03/15/2023 10:08) BMI: 31.2 Pain: 0 (05/09/2023 15:00) Allergies: Patient has answered NKA Medications: Non-VA/Over the Counter/Herbal Medications: Patient denies taking any outside and/or herbal medications. Active Outpatient Medications and Supplies: Active Outpatient Medications (including Supplies): Active Outpatient Medications Status 1) ASPIRIN 81MG CHEW TAB CHEW ONE TABLET BY MOUTH EVERY ACTIVE (S) DAY 2) ATORVASTATIN CALCIUM 80MG TAB TAKE ONE TABLET BY ACTIVE MOUTH EVERY DAY FOR CHOLESTEROL 3) CALCIUM 250MG/VITAMIN D 125 UNT TAB TAKE 2 TABLETS BY ACTIVE MOUTH EVERY DAY 4) HYDROCHLOROTHIAZIDE 25MG TAB TAKE ONE TABLET BY MOUTH ACTIVE EVERY DAY FOR BLOOD PRESSURE 5) LISINOPRIL 40MG TAB TAKE ONE TABLET BY MOUTH EVERY ACTIVE DAY FOR BLOOD PRESSURE 6) METOPROLOL SUCCINATE 50MG SA TAB TAKE ONE TABLET BY ACTIVE MOUTH AT BEDTIME FOR BLOOD PRESSURE 7) OLOPATADINE HCL 0.1% OPH SOLN INSTILL 1 DROP IN BOTH ACTIVE (S) EYES TWICE A DAY 8) OMEPRAZOLE 20MG EC CAP TAKE ONE CAPSULE BY MOUTH ACTIVE (S) TWICE A WEEK ON AN EMPTY STOMACH, AT LEAST 30 MINUTES PRIOR TO A MEAL 9) POISE PAD,MODERATE ABSORBENCY USE 1 PAD ACTIVE DIRECTED Patient reports the following changes regarding the current pharmacy list of medications: The above medication list confirmed with patient. A copy of the above medication list given to the MD for review and update. Provider will give printed copy of medication list to patient with any changes documented on printed medication list. /baltazar/ HEIKE ORONA LPN LICENSED PRACTICAL NURSE Signed: 05/09/2023 15:07 TODD ORONA [facility] May 09, 2023 02:56 PM NEUROLOGY ATTENDING NOTE: LOCAL TITLE: NEUROLOGY CLINIC NOTE STANDARD TITLE: NEUROLOGY ATTENDING NOTE DATE OF NOTE: MAY 09, 2023@14:56 ENTRY DATE: MAY 09, 2023@14:56:53 AUTHOR: VITOR THORNE COSIGNER: URGENCY: STATUS: COMPLETED SUBJECT: Movement Disorders Botulinum Toxin Clinic Note Movement Disorders Botulinum Toxin Clinic Note Chief Complaint: left hemifacial spasm History of Present Illness: Yariel Gutierres is an 88-year-old with left hemifacial with onset 1 year ago. She is here for initial botulinum toxin injections for left hemifacial spasm. Current Medications: Active Outpatient Medications (including Supplies): Active Outpatient Medications Status 1) ASPIRIN 81MG CHEW TAB CHEW ONE TABLET BY MOUTH EVERY ACTIVE (S) DAY 2) ATORVASTATIN CALCIUM 80MG TAB TAKE ONE TABLET BY ACTIVE MOUTH EVERY DAY FOR CHOLESTEROL 3) CALCIUM 250MG/VITAMIN D 125 UNT TAB TAKE 2 TABLETS BY ACTIVE MOUTH EVERY DAY 4) HYDROCHLOROTHIAZIDE 25MG TAB TAKE ONE TABLET BY MOUTH ACTIVE EVERY DAY FOR BLOOD PRESSURE 5) LISINOPRIL 40MG TAB TAKE ONE TABLET BY MOUTH EVERY ACTIVE DAY FOR BLOOD PRESSURE 6) METOPROLOL SUCCINATE 50MG SA TAB TAKE ONE TABLET BY ACTIVE MOUTH AT BEDTIME FOR BLOOD PRESSURE 7) OLOPATADINE HCL 0.1% OPH SOLN INSTILL 1 DROP IN BOTH ACTIVE (S) EYES TWICE A DAY 8) OMEPRAZOLE 20MG EC CAP TAKE ONE CAPSULE BY MOUTH ACTIVE (S) TWICE A WEEK ON AN EMPTY STOMACH, AT LEAST 30 MINUTES PRIOR TO A MEAL 9) POISE PAD,MODERATE ABSORBENCY USE 1 PAD ACTIVE DIRECTED ALLERGIES: Patient has answered NKA Physical Examination: Vital Signs: Blood Pressure: 125/70 (05/09/2023 15:00) Pulse: 67 (05/09/2023 15:00) Respiration: 18 (05/09/2023 15:00) Temperature: 98.2 F [36.8 C] (05/09/2023 15:00) Weight: 162 lb [73.48 kg] (05/09/2023 15:00) Height: 60.5 in [153.7 cm] (03/15/2023 10:08) BMI: 31.2 Neurological exam: Alert and fully oriented with fluent speech and no dysarthria. Able to provide a detailed medical history. Occasional intermittent mild spasms of the left orbicularis oculi and orbicularis tyler, becoming moderate briefly during the exam. Procedure: Botulinum toxin injection for treatment of left hemifacial spasm. After thepatient's identity was verified and the appropriate records were re- reviewed,the risks and benefits of botulinum toxin injections were reviewed with the patient. Onabotulinum toxin type A Botox was reconstituted in 1:1 dilution with 0.9% normal saline and the following injections were (Please see details of the injection locations in the patient's chart diagram): 1. Left orbicularis oculi, superolateral - 3 2. Left orbicularis oculi, lateral - 3 3. Left orbicularis oculi, inferolateral - 3 4. Left orbicularis oculi, lateral pretarsal - 1 5. Left orbicularis oculi, medial pretarsal - 1 6. Left orbicularis tyler, lateral - 1 7. Left zygomaticus - 1 Total units injected: 13 Unavoidable waste: 87 Total units billed: 100 The patient tolerated the injections without difficulty. Toxin Used: OnabotulinumtoxinA, 100 unit vial Lot#: [id number] Expiration Date: 08/2025 Impression and Plan: Yariel Gutierres is an 88-year-old with left hemifacial with onset 1 year ago. Today we did initial botulinum toxin injections for treatment of left hemifacial spasm. Follow-up in 4-6 weeks for VVC to assess results to these injections, and in 3 months to consider repeat injections. 35 minutes was spent on the date of service reviewing records, evaluating the [place] [id number], coordinating care, and documenting the encounter. /baltazar/ VITOR THORNE Physician Signed: 05/10/2023 15:08 VITOR THORNE [facility]
--- OUTSIDE RECORDS SUMMARY | 2023-06-24 08:44 | XMS_ITS | Encounter Summary ---
Author Name [facility] Organization Department of Vetera [facility] Address [address] [place] [address] Insurance Providers: All historical and current Section Date Range: From patient's date of to the date document was created. This section includes the names of all active insurance providers for the patient. Insurance Provider Type of Coverage Plan Name Start of Policy Coverage End of Policy Coverage Group Number Member ID Insurance Provider's Telephone Number Policy Talavera's Name Patient's Relationship to Policy Talavera [facility] ([id number]) PRESCRIPT ION GEHA May 30, 2005 [id number] [phone] SONIA GUTIERRES PATIENT GEHA (SECONDARY ) PREFERRED PROVIDER ORGANIZAT ION (PPO) GEHA A&B PRIMA RY May 30, 2005 [id number] SONIA GUTIERRES PATIENT GEHA (SECONDARY ) PREFERRED PROVIDER ORGANIZAT ION (PPO) GEHA A/B PRIMA RY May 30, 2005 [id number] SONIA GUTIERRES PATIENT [facility] PREFERRED PROVIDER ORGANIZAT ION (PPO) DO NOT USE May 30, 2005 [id number] [phone] TONI BRITO PATIENT MEDICARE (WNR) MEDICARE (M) PART A Jan 29, 2000 PART A [id number] [phone] SONIA GUTIERRES PATIENT MEDICARE (WNR) MEDICARE (M) PART B Jan 29, 2000 PART B [id number] [phone] SONIA GUTIERRES PATIENT Selected Encounter This section includes the information on record at [place] for the Encounter. 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 Date/Time Primary/Secondary Diagnosis Diagnosis Name Provider Source May 16, 2023 12:47 PM PRIMARY Clonic hemifacial spasm, left VITOR THORNE [facility] Plan of Treatment: Future Appointments (+ 6 months) and Future Tests (+/- 45 days) The Plan of Treatment section includes future care activities for the patient [facility] all [facility]. This section includes future appointments and future orders which are active, pending or scheduled. Future Appointments This section includes appointments that were scheduled to occur 6 months from the date of the Encounter, up to a maximum of 20 appointments. The data comes from all [facility]. Appointment Date/Time Appointment Type Appointme nt Facility Name May 09, 2023 03:00 PM AMBULATORY - REHAB MEDICIN [facility] May 18, 2023 09:15 AM AMBULATORY - SURGERY [facility] May 24, 2023 05:00 PM AMBULATORY - REHAB MEDICIN [facility] May 31, 2023 01:00 PM AMBULATORY - SURGERY [facility] Jun 28, 2023 10:40 AM AMBULATORY - SURGERY [facility] Aug 09, 2023 11:00 AM [facility] Active, Pending, and Scheduled Orders This section includes a listing of several types of active, pending, and scheduled orders, including clinic medications orders, diagnostic test orders, procedure orders and consult orders; where the start date of the order is 45 days before the date of the Encounter or 45 days after the date of theEncounter. The data comes from all [facility]. Test Date/Time Test Type Test Details Facility Name Jun 07, 2023 03:06 PM Consult Order COMMUNITY CARE-MRI Cons Engine Cleaner's Choice [facility] Jun 09, 2023 01:13 PM Pharmacy - Clinic Medication Order [facility] Social History: Smoking Status (Most current) and Tobacco Use (All prior to encounter date) This section includes the most current, and the historical, smoking and tobacco- related health factors from the [place] facility where the Encounter took place. Current Smoking Status This section includes the most current smoking, or tobacco-related health factor, from the [place] facility where the Encounter took place. Date/Time Current Smoking Status Comment Facil ity October 18, 2022 10:00 AM VA-TOBACCO NEVER USED [facility] Tobacco Use History This section includes a history of the smoking, or tobacco-related health factors, that were collected on or before the date of the Encounter. The data comes from the [place] facility where the Encounter took place. Date/Time Smoking Status/Tobacco Use Comment F acility September 28, 2021 09:30 AM VA-TOBACCO NEVER USED [facility] Nov 10, 2020 08:30 AM VA-TOBACCO NEVER USED [facility] Pathology Reports: +/- 30 days of the [...] the Encounter. The data comes from all [place] treatment facilities. Date/Time Pathology Report Provider Source May 20, 2023 11:08 AM LR SURGICAL PATHOL OGY REPORT: LOCAL TITLE: LR SURGICAL PATHOLOGY REPORT STANDARD TITLE: PATHOLOGY REPORT DATE OF NOTE: MAY 20, 2023@11:08:01 ENTRY DATE: MAY 20, 2023@11:08:01 AUTHOR: BRIAN PARADA COSIGNER: URGENCY: STATUS: COMPLETED $APHDR Reporting Lab: [facility] [CLIA# [id number]] [place] [address] - - - - - - - [...] - PATHOLOGY REPORT Accession No. [id number] - - - - - - - [...] - - - - POSTOPERATIVE DIAGNOSIS: Surgeon/physician: IDCK WASSERMAN =-=-=-=-=-=-=-=-=-=-=-=-=-= -=-=-=-=-=-=-=-=-=-=-=-=-=- =-=-=-=-=-=-=-=-=-=-=-=-= - - - - - - - - - - - - - - - - - - - - - - - - - - - - - - - - - - - - - - - - PATHOLOGY REPORT Accession No. [id number] - - - - - - - [...] 6 o'clock tip, en face. [facility]. [facility]OSCOPIC DESCRIPTION: Microscopic examination performed. CI. DIAGNOSIS: Skin; left shoulder; excisional biopsy-- -no evidence of residual carcinoma -román /baltazar/ BRIAN PARADA M.D. STAFF PATHOLOGIST Signed May 20, 2023@11:08 Performing Laboratory: Surgical Pathology Report Performed By: [facility] [CLIA# [id number]] [place] [address] $FTR - - - - - - - - - - - - - - - - - - - - - - - - - - - - - - - - - - - - - - - - (End of report) BRIAN PARADA MD [facility] Date May 20, 2023 - - - - - - - - - - - - - - - - - - - - - - - - - - - - - - - - - - - - - - - - YARIEL GUTIERRES STANDARD FORM 515 ID:[id number] SEX:F :1935 AGE: 88 LOC:[id number] PCP: Natalia Sales MD /baltazar/ BRIAN PARADA M.D. STAFF PATHOLOGIST Signed: 05/20/2023 11:08 BRIAN PARADA [facility] Encounter Notes: All associated encounter notes This section contains the clinical notes associated to the Encounter. Date/Time Encounter Note(s) Provider Source May 03, 2023 09:00 AM NEUROLOGY CONSULT: LOCAL TITLE: NEUROLOGY CONSULT STANDARD TITLE: NEUROLOGY CONSULT DATE OF NOTE: MAY 03, 2023@09:00 ENTRY DATE: MAY 03, 2023@09:00:19 AUTHOR: VITOR THORNE COSIGNER: URGENCY: STATUS: COMPLETED [facility] Initial Consultation Note CHIEF COMPLAINT/REASON FOR CONSULTATION: left facial twitching Pt has been having facial twitching for >1 yr causing distress; starts at L corner of mouth, radiates up to eye. Feels more at night. HISTORY OF PRESENT ILLNESS: Yariel Gutierres is an 88-year-old onset of left eye twitching starting 1 year ago. May also involve lower face. Increases with laying down or laying on her left side. It occurrs when she reads usually. No numbness of face or pain. REVIEW OF SYSTEMS: 10 system ROS was completed and is negative except as stated above. CURRENT MEDICATIONS: Active Outpatient Medications (including Supplies): Active Outpatient Medications Status 1) ASPIRIN 81MG CHEW TAB CHEW ONE TABLET BY MOUTH EVERY ACTIVE DAY 2) ATORVASTATIN CALCIUM 80MG TAB TAKE [...] IN BOTH ACTIVE EYES TWICE A DAY 8) OMEPRAZOLE 20MG EC CAP TAKE ONE CAPSULE BY MOUTH ACTIVE TWICE A WEEK ON AN EMPTY STOMACH, AT LEAST 30 MINUTES PRIOR TO A MEAL 9) POISE PAD,MODERATE ABSORBENCY USE 1 PAD ACTIVE DIRECTED ALLERGIES: Patient has answered NKA PAST MEDICAL HISTORY: Active problems - Computerized Problem List is [...] - 2011 4. Polymyalgia rheumatica 5. Prediabetes (RUST [id number]) 6. 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 - pT1c, N0, M0-Stage 1A - s/p lumpectomy 06/2014, radiation therapy - On Anastrazole since 07/2014 7. History of cholecystectomy 8. History of total knee arthroplasty - R knee 9. Peripheral vascular disease - s/p stenting Femoral artery, 2008 10. Sleep Apnea (RUST [id number]) 11. Benign essential hypertension 12. Thoracic aortic aneurysm without rupture FAMILY HISTORY: No neurological disorders. SOCIAL HISTORY: Lives in [place] in [place]. PHYSICAL EXAMINATION: Temperature: 97.5 F [36.4 C] (08/09/2022 09:27) BP: 124/73 (03/15/2023 10:08) Pulse: 75 (03/15/2023 10:08) Respiration: 18 (03/15/2023 10:08) Weight: 162.5 lb [73.71 kg] (03/15/2023 10:08) Pain: 0 (03/15/2023 10:08) Pulse Oximetry: 96% (03/15/2023 10:08) General: Pleasant 88-year-old in NAD NEUROLOGICAL EXAMINATION: Mental Status: Alert and fully oriented with fluent speech and no dysarthria. Able to provide a detailed medical history. Cranial Nerves: Face symmetric with equal activation, EOMI. Occasional intermittent mild spasms of the left orbicularis oculi and orbicularis tyler, becoming moderate briefly during the exam. Motor:Normal bulk and 5/5 strength in all 4 extremities. Reflexes: RIGHT LEFT Biceps: 1 2 Brachioradialis: 1 2 Patellar: 1 1 Ankle: Absent Absent Plantar: flexor flexor Gait: Normal gait. ASSESSMENT: Yariel Gutierres is an 88-year-old with left hemifacial with onset 1 year ago. RECOMMENDATIONS: Botox clinic MRI brain with and without contrast with fine cuts through CN VII. 40 minutes was spent on the date of service reviewing records, evaluating the [place] [id number] in clinic, coordinating care, and documenting the encounter. /baltazar/ VITOR THORNE Physician Signed: 05/04/2023 13:16 VITOR THORNE [facility]
--- OUTSIDE RECORDS SUMMARY | 2023-06-24 08:45 | XMS_ITS | Encounter Summary ---
Author Name Department of [facility] Organization Department of [facility] Affairs Address [address] [place] [address] Insurance Providers: All historical and current Section [...] Patient's Relationship to Policy Talavera [facility] ([id number]) PRESCRIPT ION GEHA May 30, 2005 [id number] SONIA GUTIERRES PATIENT GEHA (SECONDARY ) PREFERRED PROVIDER ORGANIZAT ION (PPO) GEHA A/B PRIMA RY May 30, 2005 [id number] [phone] SONIA GUTIERRES PATIENT GEHA (SECONDARY ) PREFERRED PROVIDER ORGANIZAT ION (PPO) GEHA A&B PRIMA RY May 30, 2005 [id number] [phone] SONIA GUTIERRES PATIENT [facility] PREFERRED PROVIDER ORGANIZAT ION (PPO) DO NOT USE May 30, 2005 [id number] TONI BRITO PATIENT MEDICARE (WNR) MEDICARE (M) PART A Jan 29, 2000 PART A [id number] [phone] SONIA GUTIERRES PATIENT MEDICARE (WNR) MEDICARE (M) PART B Jan 29, 2000 PART B [id number] [phone] SONIA GUTIERRES PATIENT Selected Encounter This section includes the information on record at [place] for the Encounter. Date/Time Encounter Type Encounter Description Reason Pro vider Source May 31, 2023 01:01 PM Outpatient Encounter TELEPHONE TRIAGE IHE Encounter Template Text not used by MD Plan of Treatment: Future Appointments (+ 6 months) and Future Tests (+/- 45 days) The Plan of Treatment section includes future care activities for the patient from [facility] This section includes future appointments and future orders which are active, pending or scheduled. Future Appointments This section includes appointments that were scheduled to occur 6 months from the date of the Encounter, up to a maximum of 20 appointments. The data comes from all [facility]. Appointment Date/Time Appointment Type Appointme nt Facility Name Jun 28, 2023 10:40 AM AMBULATORY - SURGERY [facility] Aug 09, 2023 11:00 AM AMBULATORY - REHAB MEDICIN E [facility] Active, Pending, and Scheduled Orders This section includes a listing of several types of active, pending, and scheduled orders, including clinic medications orders, diagnostic test orders, procedure orders and consult orders; where the start date of the order is 45 days before the date of the Encounter or 45 days after the date of theEncounter. The data comes from all [facility]. Test Date/Time Test Type Test Details Facility Name Jun 07, 2023 03:06 PM Consult Order COMMUNITY CARE-MRI Cons Camera Operator's Choice [facility] Jun 09, 2023 01:13 PM Pharmacy - Clinic Medication Order [facility] Social History: Smoking Status (Most current) and Tobacco Use (All prior to encounter date) This section includes the most current, and the historical, smoking and tobacco- related health factors from the [place] facility where the Encounter took place. Current Smoking Status This section includes the most current smoking, or tobacco-related health factor, from the [place] facility where the Encounter took place. Date/Time Current Smoking Status Comment Robyn baez October 18, 2022 10:00 AM VA-TOBACCO NEVER USED [facility] Tobacco Use History This section includes a history of the smoking, or tobacco-related health factors, that were collected on or before the date of the Encounter. The data comes from the [place] facility where the Encounter took place. Date/Time Smoking Status/Tobacco Use Comment F acnelia September 28, 2021 09:30 AM MD-TOBACCO NEVER USED [facility] Nov 10, 2020 08:30 AM MD-TOBACCO NEVER USED [facility] Pathology Reports: +/- 30 days of [...] the Encounter. The data comes from all [place] treatment facilities. Date/Time Pathology Report Provider Source May 20, 2023 11:08 AM LR SURGICAL PATHOL OGY REPORT: LOCAL TITLE: LR SURGICAL PATHOLOGY REPORT STANDARD TITLE: PATHOLOGY REPORT DATE OF NOTE: MAY 20, 2023@11:08:01 ENTRY DATE: MAY 20, 2023@11:08:01 AUTHOR: BRIAN PARADA COSIGNER: URGENCY: STATUS: COMPLETED $APHDR Reporting Lab: [facility] [CLIA# [id number]] [place] [address] - - - - - - - [...] - PATHOLOGY REPORT Accession No. [id number] - - - - - - - [...] - PATHOLOGY REPORT Accession No. [id number] - - - - - - - [...] 6 o'clock tip, en face. CE. (D) [facility] MICROSCOPIC DESCRIPTION: Microscopic examination performed. CI. DIAGNOSIS: Skin; left shoulder; excisional biopsy-- -no evidence of residual carcinoma -scar /es/ BRIAN PARADA M.D. STAFF PATHOLOGIST Signed May 20, 2023@11:08 Performing Laboratory: Surgical Pathology Report Performed By: [facility] [CLIA# [id number]] [place] [address] $FTR - - - - - - [...] - - - - - - ALICE GUTIERRES STANDARD FORM 515 ID:[id number] SEX:F :1935 AGE: 88 LOC:[id number] PCP: Natalia Sales MD /baltazar/ BRIAN PARADA M.D. STAFF PATHOLOGIST Signed: 05/20/2023 11:08 BRIAN PARADA [facility] Encounter Notes: All associated encounter notes This section contains the clinical notes associated to the Encounter. Date/Time Encounter Note(s) Provider Source May 31, 2023 01:29 PM ADDENDUM: LOCAL TITLE: Addendum STANDARD TITLE: ADDENDUM DATE OF NOTE: MAY 31, 2023@13:29:13 ENTRY DATE: MAY 31, 2023@13:29:14 AUTHOR: DEVI VANEGAS COSIGNER: URGENCY: STATUS: COMPLETED Called patient to discuss. She is looking for homemaking services. She states her kids are upset because her apartment is so cluttered. I'm sorry my kids feel this way, but I don't expect them to come down and clean. Explained to patient that [place] doesn't provide homemaking services as a stand alone service. Asked her if she has any ADL needs such as bathing, dressing, toileting, grooming etc. She states no and she is able to do all that herself and that she still drives. Offered to place social work consult to see if there are any other resources, she agreed. Asked her if advertising writer could contact her son for more information and she does not want that, she will speak with him herself. /baltazar/ DEVI VANEGAS RN REGISTERED NURSE Signed: 05/31/2023 13:39 Receipt Acknowledged By: 06/06/2023 15:57 /baltazar/ ROSAURA LEVY ALPINE GUIDE, ROSAURA --- Original Document --- 05/31/23 CCC: SCHEDULING ADMINISTRATION: Primary Care Call Center [facility] Tru[facility], called and stated 's son, Aman Gutierres (phone ), requested home care services for . Please contact the or Aman. Phone number verified as correct. [phone] /baltazar/ MONICA FUENTES TECHNICAL PLANNER Signed: 05/31/2023 13:04 Receipt Acknowledged By: 05/31/2023 13:29 /baltazar/ DEVI VANEGAS RN REGISTERED NURSE for MICKI Hubbard JAIN DEVI VANEGAS [facility] May 31, 2023 01:01 PM ADMINISTRATIVE NOT E: LOCAL TITLE: CCC: SCHEDULING ADMINISTRATION STANDARD TITLE: ADMINISTRATIVE NOTE DATE OF NOTE: MAY 31, 2023@13:01 ENTRY DATE: MAY 31, 2023@13:01:39 AUTHOR: REYNA FUENTES EXP COSIGNER: URGENCY: STATUS: COMPLETED CCC: SCHEDULING ADMINISTRATION Has ADDENDA Primary Care Call Center Rajinder Trujillo, called and stated 's son, Aman Gutierres (phone ), requested home care services for . Please contact the or Aman. Phone number verified as correct. [phone] /baltazar/ MONICA FUENTES TECHNICAL PLANNER Signed: 05/31/2023 13:04 Receipt Acknowledged By: 05/31/2023 13:29 /baltazar/ DEVI VANEGAS RN REGISTERED NURSE for MICKI JAIN 05/31/2023 ADDENDUM STATUS: COMPLETED Called patient to discuss. She is looking for homemaking services. She states her kids are upset because her apartment is so cluttered. I'm sorry my kids feel this way, but I don't expect them to come down and clean. Explained to patient that [place] doesn't provide homemaking services as a stand alone service. Asked her if she has any ADL needs such as bathing, dressing, toileting, grooming etc. She states no and she is able to do all that herself and that she still drives. Offered to place social work consult to see if there are any other resources, she agreed. Asked her if advertising writer could contact her son for more information and she does not want that, she will speak with him herself. /baltazar/ DEVI VANEGAS RN REGISTERED NURSE Signed: 05/31/2023 13:39 Receipt Acknowledged By: 06/06/2023 15:57 /baltazar/ ROSAURA LEVY ALPINE GUIDE, ROSAURA 06/10/2023 ADDENDUM STATUS: COMPLETED SW spoke with regarding the above, she states she has a contact for someone in her building who does housekeeping and is going to be in contact with her. She denies needing resources. She is wondering if she should get both the COVID and RSV vaccines at the same time as they are doing in-house vaccines at her building. She spoke with PACT Devi COLLIER yesterday about this. NBA messaged Devi, she messaged PCP yesterday. PACT RNMicki, will be following up on this. /baltazar/ ROSAURA LEVY ALPINE GUIDE, AUTOMATIC BOW MAKER MACHINE TENDER Signed: 06/10/2023 09:45 ALFREDO,SHONNAS A A [facility]
--- OUTSIDE RECORDS SUMMARY | 2023-06-24 08:45 | XMS_ITS | Encounter Summary ---
Author Name [facility] Organization [facility] Address [address] [place] [address] Insurance Providers: All historical and current Section [...] to Policy Talavera [facility] ([id number]) PRESCRIPT ION GEHA May 30, 2005 [id number] [phone] SONIA MOBLEY PATIENT GEHA (SECONDARY ) PREFERRED PROVIDER ORGANIZAT ION (PPO) GEHA A/B PRIMA RY May 30, 2005 [id number] SONIA MOBLEY PATIENT GEHA (SECONDARY ) PREFERRED PROVIDER ORGANIZAT ION (PPO) GEHA A&B PRIMA RY May 30, 2005 [id number] SONIA MOBLEY PATIENT [facility] PREFERRED PROVIDER ORGANIZAT ION (PPO) DO NOT USE May 30, 2005 [id number] TONI BRITO PATIENT MEDICARE (WNR) MEDICARE (M) PART B Jan 29, 2000 PART B [id number] SONIA MOBLEY PATIENT MEDICARE (WNR) MEDICARE (M) PART A Jan 29, 2000 PART A [id number] SONIA MOBLEY PATIENT Selected Encounter This section includes the information on record at MD for the Encounter. Date/Time Encounter Type Encounter Description Reason Provider Source May 20, 2023 11:08 AM Outpatient Encounter EVENT (HISTORICAL) BRIAN PARADA May Encounter Template Text not used by MD Plan of Treatment: Future Appointments (+ 6 months) and Future Tests (+/- 45 days) The Plan of Treatment section includes future care activities for the patient from all [facility] This section includes future appointments and future orders which are active, pending or scheduled. Future Appointments This section includes appointments that were scheduled to occur 6 months from the date of the Encounter, up to a maximum of 20 appointments. The data comes from all [facility]. Appointment Date/Time Appointment Type Appointme nt Facility Name May 24, 2023 05:00 PM AMBULATORY - REHAB MEDICIN E [facility] May 31, 2023 01:00 PM AMBULATORY - SURGERY [facility] Jun 28, 2023 10:40 AM AMBULATORY - SURGERY [facility] Aug 09, 2023 11:00 [facility] Active, Pending, and Scheduled Orders This section includes a listing of several types of active, pending, and scheduled orders, including clinic medications orders, diagnostic test orders, procedure orders and consult orders; where the start date of the order is 45 days before the date of the Encounter or 45 days after the date of theEncounter. The data comes from all [facility]. Test Date/Time Test Type Test Details Facility Name Jun 07, 2023 03:06 PM Consult Order COMMUNITY CARE-MRI Cons Adult Manager's Choice [facility] Jun 09, 2023 01:13 PM Pharmacy - Clinic Medication Order [facility] Social History: Smoking Status (Most current) and Tobacco Use (All prior to encounter date) This section includes the most current, and the historical, smoking and tobacco- related health factors from the [facility] where the Encounter took place. Current Smoking Status This section includes the most current smoking, or tobacco-related health factor, from the MD facility where the Encounter took place. Date/Time Current Smoking Status Comment Robyn ity October 18, 2022 10:00 AM VA-TOBACCO NEVER USED [facility] Tobacco Use History This section includes a history of the smoking, or tobacco-related health factors, that were collected on or before the date of the Encounter. The data comes from the MD facility where the Encounter took place. Date/Time Smoking Status/Tobacco Use Comment F acility September 28, 2021 09:30 AM VA-TOBACCO NEVER USED [facility] Nov 10, 2020 08:30 AM VA-TOBACCO NEVER USED [facility] Pathology Reports: +/- 30 days of [...] COSIGNER: URGENCY: STATUS: COMPLETED $APHDR Reporting Lab: [facility] [CLIA# [id number]] [place] [address] - - - - - - - [...] - PATHOLOGY REPORT Accession No. [id number] - - - - - - - [...] - PATHOLOGY REPORT Accession No. [id number] - - - - - - - [...] Performing Laboratory: Surgical Pathology Report Performed By: [facility] [CLIA# [id number]] [place] [address] $FTR - - - - - - [...] - - ALICE MOBLEY STANDARD FORM 515 ID:[id number] SEX:F :1935 AGE: 88 LOC:47049 PCP: Natalia Sales MD /baltazar/ BRIAN PARADA M.D. STAFF PATHOLOGIST Signed: 05/20/2023 11:08 BRIAN PARADA [facility] Encounter Notes: All associated encounter notes This section contains the clinical notes associated to the Encounter. Date/Time Encounter Note(s) Provider Source May 20, 2023 11:08 AM PATHOLOGY REPORT: LOCAL TITLE: LR SURGICAL PATHOLOGY REPORT STANDARD TITLE: PATHOLOGY REPORT DATE OF NOTE: MAY 20, 2023@11:08:01 ENTRY DATE: MAY 20, 2023@11:08:01 AUTHOR: BRIAN PARADA EXP COSIGNER: URGENCY: STATUS: COMPLETED $APHDR Reporting Lab: [facility] [CLIA# [id number]] [place] [address] - - - - - - - [...] - PATHOLOGY REPORT Accession No. [id number] - - - - - - - [...] - PATHOLOGY REPORT Accession No. [id number] - - - - - - - [...] 6 o'clock tip, en face. CE. (D[place] [facility] MICROSCOPIC DESCRIPTION: Microscopic examination performed. CI. DIAGNOSIS: Skin; left shoulder; excisional biopsy-- -no evidence of residual carcinoma -román /baltazar/ BRIAN PARADA M.D. STAFF PATHOLOGIST Signed May 20, 2023@11:08 Performing Laboratory: Surgical Pathology Report Performed By: [facility] [CLIA# [id number]] [place] [address] $FTR - - - - - - - - - - - - - - - - - - - - - - - - - - - - - - - - - - - - - - - - (End of report) BRIAN PARADA MD [facility] Date May 20, 2023 - - - - - - - - - - - - - - - - - - - - - - - - - - - - - - - - - - - - - - - - ALICE MOBLEY [place] STANDARD FORM 515 ID:[id number] SEX:F :1935 AGE: 88 LOC:32551 PCP: Natalia Sales MD /baltazar/ BRIAN PARADA M.D. STAFF PATHOLOGIST Signed: 05/20/2023 11:08 BRIAN PARADA [facility]
--- OUTSIDE RECORDS SUMMARY | 2023-06-24 08:45 | XMS_ITS | Encounter Summary ---
Author Name [facility] Organization [facility] Address [address] [place] [address] Insurance Providers: All historical and current Section [...] Patient's Relationship to Policy Talavera [facility] ([id number]) PRESCRIPT ION GEHA May 30, 2005 [id number] [phone] SONIA MOBLEY PATIENT GEHA (SECONDARY ) PREFERRED PROVIDER ORGANIZAT ION (PPO) GEHA A&B PRIMA RY May 30, 2005 [id number] SONIA MOBLEY PATIENT GEHA (SECONDARY ) PREFERRED PROVIDER ORGANIZAT ION (PPO) GEHA A/B PRIMA RY May 30, 2005 [id number] [phone] SONIA MOBLEY PATIENT [facility] PREFERRED PROVIDER ORGANIZAT ION (PPO) DO NOT USE May 30, 2005 [id number] TONI BRITO PATIENT MEDICARE (WNR) MEDICARE (M) PART A Jan 29, 2000 PART A [id number] [phone] SONIA MOBLEY PATIENT MEDICARE (WNR) MEDICARE (M) PART B Jan 29, 2000 PART B [id number] [phone] SONIA MOBLEY PATIENT Selected Encounter This section includes the information on record at [place] for the Encounter. Date/Time Encounter Type Encounter Description Reason Provider Source May 31, 2023 01:00 PM OFF/OP EST MAY X REQ PHY/QHP DERMATOLOGY ICD-10-CM Z48.02 Encounter for removal of sutures POSTLUZ MARIA IHE Encounter Template Text not used by [place] Assessments - Encounter Diagnoses This section includes the primary and secondary diagnoses documented for the Encounter. Date/Time Primary/Secondary Diagnosis Diagnosis Name Provider Source Jun 10, 2023 07:55 AM PRIMARY Encounter for removal of sutures POST,LUZ MARIA Mckinley [facility] Plan of Treatment: Future Appointments (+ 6 months) and Future Tests (+/- 45 days) The Plan of Treatment section includes future care activities for the patient from all [place] [facility]. This section includes future appointments and future orders which are active, pending or scheduled. Future Appointments This section includes appointments that were scheduled to occur 6 months from the date of the Encounter, up to a maximum of 20 appointments. The data comes from all [place] treatment facilities. Appointment Date/Time Appointment Type Appointme nt Facility Name Jun 28, 2023 10:40 AM AMBULATORY - SURGERY [facility] Aug 09, 2023 11:00 AM AMBULATORY - REHAB MEDICIN E [facility] Active, Pending, and Scheduled Orders This section includes a listing of several types of active, pending, and scheduled orders, including clinic medications orders, diagnostic test orders, procedure orders and consult orders; where the start date of the order is 45 days before the date of the Encounter or 45 days after the date of theEncounter. The data comes from all [place] treatment [facility]. Test Date/Time Test Type Test Details Facility Name Jun 07, 2023 03:06 PM Consult Order COMMUNITY CARE-MRI Cons Sales Vendor's Choice [facility] Jun 09, 2023 01:13 PM Pharmacy - Clinic Medication Order [facility] Social History: Smoking Status (Most current) and Tobacco Use (All prior to encounter date) This section includes the most current, and the historical, smoking and tobacco- related health factors from the [place] facility where the Encounter took place. Current Smoking Status This section includes the most current smoking, or tobacco-related health factor, from the [place] facility where the Encounter took place. Date/Time Current Smoking Status Comment Facil ity October 18, 2022 10:00 AM VA-TOBACCO NEVER USED [facility] Tobacco Use History This section includes a history of the smoking, or tobacco-related health factors, that were collected on or before the date of the Encounter. The data comes from the [place] facility where the Encounter took place. Date/Time Smoking Status/Tobacco Use Comment Farooq aranda September 28, 2021 09:30 AM VA-TOBACCO NEVER USED [facility] Nov 10, 2020 08:30 AM VA-TOBACCO NEVER USED [facility] Pathology Reports: +/- 30 days [...] the Encounter. The data comes from all [place] treatment facilities. Date/Time Pathology Report Provider Source May 20, 2023 11:08 AM LR SURGICAL PATHOL OGY REPORT: LOCAL TITLE: LR SURGICAL PATHOLOGY REPORT STANDARD TITLE: PATHOLOGY REPORT DATE OF NOTE: MAY 20, 2023@11:08:01 ENTRY DATE: MAY 20, 2023@11:08:01 AUTHOR: BRIAN PARADA COSIGNER: URGENCY: STATUS: COMPLETED $APHDR Reporting Lab: [facility] [CLIA# [id number]] [place] [address] - - - - - - - [...] - PATHOLOGY REPORT Accession No. [id number] - - - - - - - [...] - PATHOLOGY REPORT Accession No. [id number] - - - - - - - [...] 6 o'clock tip, en face. [facility] DES[facility]: Microscopic examination performed. CI. 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 STAFF PATHOLOGIST Signed May 20, 2023@11:08 Performing Laboratory: Surgical Pathology Report Performed By: [facility] [CLIA# [id number]] [place] [address] $FTR - - - - - - - - - - - - - - - - - - - - - - - - - - - - - - - - - - - - - - - - (End of report) BRIAN PARADA MD [facility] Date May 20, 2023 - - - - - - - - - - - - - - - - - - - - - - - - - - - - - - - - - - - - - - - - ALICE MOBLEY [place] STANDARD FORM 515 ID:[id number] SEX:F :1935 AGE: 88 LOC:[id number] PCP: Natalia Sales MD /baltazar/ BRIAN PARADA M.D. STAFF PATHOLOGIST Signed: 05/20/2023 11:08 BRIAN PARADA [facility] Encounter Notes: All associated encounter notes This section contains the clinical notes associated to the Encounter. Date/Time Encounter Note(s) Provider Source May 31, 2023 10:34 AM COMMUNICATION NOTE : LOCAL TITLE: PATIENT CONTACT NOTE - DERMATOLOGY STANDARD TITLE: COMMUNICATION NOTE DATE OF NOTE: MAY 31, 2023@10:34 ENTRY DATE: MAY 31, 2023@10:34:17 AUTHOR: LUZ MARIA DE LA VEGA EXP COSIGNER: URGENCY: STATUS: COMPLETED Patient arriving requesting left shoulder s/r - per surgical note patient sutures to be removed 2 weeks post. Obtained verbal from Dr. Leo to remove today if no s/s of infection. Edges were approximated, free of signs and symptoms of infection. Vaseline and bandage were applied to excision site. Patient tolerated suture removal and had no questions or concerns. /baltazar/ LUZ MARIA DE LA VEGA LPN LICENSED PRACTICAL NURSE Signed: 05/31/2023 10:39 Receipt Acknowledged By: 05/31/2023 10:46 /es/ KANA LEO MD INTERNAL MEDICINE/DERMATOLOGY STAFF POST,LUZ MARIA Mckinley [facility]
--- OUTSIDE RECORDS SUMMARY | 2023-06-24 08:45 | XMS_ITS | Encounter Summary ---
Author Name [facility] Address [address] [place] [address] Insurance Providers: All historical and current Section [...] Name Patient's Relationship to Policy Talavera [facility] [place] ([id number]) PRESCRIPT ION GEHA May 30, 2005 [id number] SONIA MOBLEY PATIENT GEHA (SECONDARY ) PREFERRED PROVIDER ORGANIZAT ION (PPO) GEHA A&B PRIMA RY May 30, 2005 [id number] [phone] SONIA MOBLEY PATIENT GEHA (SECONDARY ) PREFERRED PROVIDER ORGANIZAT ION (PPO) GEHA A/B PRIMA RY May 30, 2005 [id number] SONIA MOBLEY PATIENT [facility] PREFERRED PROVIDER ORGANIZAT ION (PPO) DO NOT USE May 30, 2005 [id number] TONI BRITO PATIENT MEDICARE (WNR) MEDICARE (M) PART A Jan 29, 2000 PART A [id number] SONIA MOBLEY PATIENT MEDICARE (WNR) MEDICARE (M) PART B Jan 29, 2000 PART B [id number] [phone] SONIA MOBLEY PATIENT Selected Encounter This section includes the information on record at [place] for the Encounter. Date/Time Encounter Type Encounter Description Reason Pro vider Source May 10, 2023 12:15 PM Outpatient Encounter NEUROLOGY IHE Encounter Template Text not used by [place] Plan of Treatment: Future Appointments (+ 6 months) and Future Tests (+/- 45 days) The Plan of Treatment section includes future care activities for the patient from all [place] [facility]. This section includes future appointments and future orders which are active, pending or scheduled. Future Appointments This section includes appointments that were scheduled to occur 6 months from the date of the Encounter, up to a maximum of 20 appointments. The data comes from all [facility]. Appointment Date/Time Appointment Type Appointme nt Facility Name May 18, 2023 09:15 AM AMBULATORY - SURGERY [facility] May 24, 2023 05:00 PM AMBULATORY - REHAB MEDICIN E [facility] May 31, 2023 01:00 PM AMBULATORY - SURGERY [facility] Jun 28, 2023 10:40 AM AMBULATORY - SURGERY [facility] Aug 09, 2023 11:00 AM AMBULATORY - RE[facility]AB [facility] Active, Pending, and Scheduled Orders This section includes a listing of several types of active, pending, and scheduled orders, including clinic medications orders, diagnostic test orders, procedure orders and consult orders; where the start date of the order is 45 days before the date of the Encounter or 45 days after the date of theEncounter. The data comes from all [facility]. Test Date/Time Test Type Test Details Facility Name Jun 07, 2023 03:06 PM Consult Order COMMUNITY CARE-MRI Cons Court Attendant's Choice [facility] Jun 09, 2023 01:13 PM Pharmacy - Clinic Medication Order [facility] Social History: Smoking Status (Most current) and Tobacco Use (All prior to encounter date) This section includes the most current, and the historical, smoking and tobacco- related health factors from the [place] facility where the Encounter took place. Current Smoking Status This section includes the most current smoking, or tobacco-related health factor, from the [place] facility where the Encounter took place. Date/Time Current Smoking Status Comment Robyn ity October 18, 2022 10:00 AM VA-TOBACCO NEVER USED [facility] Tobacco Use History This section includes a history of the smoking, or tobacco-related health factors, that were collected on or before the date of the Encounter. The data comes from the [place] facility where the Encounter took place. Date/Time Smoking Status/Tobacco Use Comment F manoj September 28, 2021 09:30 AM VA-TOBACCO NEVER USED [facility] Nov 10, 2020 08:30 AM VA-TOBACCO NEVER USED [facility] Pathology Reports: +/- 30 days of [...] the Encounter. The data comes from all [place] treatment facilities. Date/Time Pathology Report Provider Source May 20, 2023 11:08 AM LR SURGICAL PATHOL OGY REPORT: LOCAL TITLE: LR SURGICAL PATHOLOGY REPORT STANDARD TITLE: PATHOLOGY REPORT DATE OF NOTE: MAY 20, 2023@11:08:01 ENTRY DATE: MAY 20, 2023@11:08:01 AUTHOR: BRIAN PARADA EXP COSIGNER: URGENCY: STATUS: COMPLETED $APHDR Reporting Lab: [facility] [CLIA# [id number]] [place] [address] - - - - - - - [...] - PATHOLOGY REPORT Accession No. [id number] - - - - - - - [...] - PATHOLOGY REPORT Accession No. [id number] - - - - - - - [...] Performing Laboratory: Surgical Pathology Report Performed By: [facility] [CLIA# [id number]] [place] [place] [address] $FTR - - - - - - [...] - - ALICE MOBLEY STANDARD FORM 515 ID:[id number] SEX:F :1935 AGE: 88 LOC:52449 PCP: Natalia Sales MD /baltazar/ BRIAN PARADA M.D. STAFF PATHOLOGIST Signed: 05/20/2023 11:08 BRIAN PARADA [facility] Encounter Notes: All associated encounter notes This section contains the clinical notes associated to the Encounter. Date/Time Encounter Note(s) Provider Source May 10, 2023 12:15 PM REPORT OF CONTACT: LOCAL TITLE: APPOINTMENT SCHEDULING NOTE STANDARD TITLE: REPORT OF CONTACT DATE OF NOTE: MAY 10, 2023@12:15 ENTRY DATE: MAY 10, 2023@12:15:47 AUTHOR: DIETER CABALLERO COSIGNER: URGENCY: STATUS: COMPLETED APPOINTMENT SCHEDULING NOTE Has ADDENDA Attempted to schedule Return to clinic (RTC) Contact attempt made to Paulina 1st attempt Telephone 2nd attempt Text message 3rd attempt Letter - Sent letter by regular [place] mail to address on file: ALICE MOBLEY [address] [place] [address] [address] Sivakumar CAST[address] [place], [place] [address] Paulina wants to call back to schedule If calls back, schedule appt for: Activity: 05/09/2023 15:31 New Order entered by MATI,VITOR E (STAFF PHYSICIAN) Order Text: Return to [facility] MATI on or around ( Jun 15, 2023 ) for a total of 1 appointment(s) 30 min /baltazar/ DIETER CABALLERO Advanced Glue Wheel Operator REC Signed: 05/10/2023 12:16 05/25/2023 ADDENDUM STATUS: COMPLETED Attempted to schedule Return to clinic (RTC) Other: Patient has not responded to scheduling contact attempts for below RTC Order- has failed mandated scheduling effort (no response to attempts to schedule). RTC Order has been dispositioned. Ordering provider notified via additional signer to this note If calls back, schedule appt for: Activity: 05/09/2023 15:31 New Order entered by VITOR THORNE (STAFF PHYSICIAN) Order Text: Return to [facility] MATI on or around ( Jun 15, 2023 ) for a total of 1 appointment(s) 30 min Nature of Order: ELECTRONICALLY ENTERED Elec Signature: VITOR THORNE (STAFF PHYSICIAN) on 05/09/2023 15:31 05/25/2023 13:11 Discontinue entered by AGNES HERNANDEZ (LEAD MSA) Nature of Order: POLICY Ordered by: VITOR THORNE (STAFF PHYSICIAN) Signature: NOT REQUIRED Disposition by: AGNES HERNANDEZ (LEAD MSA) on 05/25/2023 13:11 /baltazar/ AGNES HERNANDEZ LEAD MSA REC [facility] Signed: 05/25/2023 13:12 DIETER CABALLERO [facility]
--- OUTSIDE RECORDS SUMMARY | 2023-06-24 08:45 | XMS_ITS | Encounter Summary ---
Author Name [facility] Organization [facility] Address [address] [place] [address] Insurance Providers: All historical and current Section Date Range: From patient's date of to the date document was created. This section includes the names of all active insurance providers for the patient. Insurance Provider Type of Coverage Plan Name Start of Policy Coverage End of Policy Coverage Group Number Member ID Insurance Provider's Telephone Number Policy Talavera's Name Patient's Relationship to Policy Talavera [facility] ([id number]) PRESCRIPT ION GEHA May 30, 2005 [id number] [phone] SONIA MOBLEY PATIENT GEHA (SECONDARY ) PREFERRED PROVIDER ORGANIZAT ION (PPO) GEHA A/B PRIMA RY May 30, 2005 [id number] [phone] SONIA MOBLEY PATIENT GEHA (SECONDARY ) PREFERRED PROVIDER ORGANIZAT ION (PPO) GEHA A&B PRIMA RY May 30, 2005 [id number] SONIA MOBLEY PATIENT [facility] PREFERRED PROVIDER ORGANIZAT ION (PPO) DO NOT USE May 30, 2005 [id number] [phone] TONI BRITO PATIENT MEDICARE (WNR) MEDICARE (M) PART A Jan 29, 2000 PART A [id number] [phone] SONIA MOBLEY PATIENT MEDICARE (WNR) MEDICARE (M) PART B Jan 29, 2000 PART B [id number] [phone] SONIA MOBLEY PATIENT Selected Encounter This section includes the information on record at ID for the Encounter. 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 This section includes future appointments and future orders which are active, pending or scheduled. Future Appointments This section includes appointments that were scheduled to occur 6 months from the date of the Encounter, up to a maximum of 20 appointments. The data comes from all [facility]. Appointment Date/Time Appointment Type Appointme nt Facility Name May 24, 2023 05:00 PM AMBULATORY - REHAB [facility] May 31, 2023 01:00 PM AMBULATORY - SURGERY [facility] Jun 28, 2023 10:40 AM AMBULATORY - SURGERY [facility] Aug 09, 2023 11:00 AM AMBULATORY - REHAB [facility] Active, Pending, and Scheduled Orders This section includes a listing of several types of active, pending, and scheduled orders, including clinic medications orders, diagnostic test orders, procedure orders and consult orders; where the start date of the order is 45 days before the date of the Encounter or 45 days after the date of theEncounter. The data comes from all [facility]. Test Date/Time Test Type Test Details Facility Name Jun 07, 2023 03:06 PM Consult Order COMMUNITY CARE-MRI Cons Airplane Charter Clerk's Choice [facility] Jun 09, 2023 01:13 PM Pharmacy - Clinic Medication Order [facility] Vital Signs: All taken on the encounter date This section contains inpatient and outpatient Vital Signs collected on the date of the Encounter. Date/Time Temperature Pulse Blood Pressure Respiratory Rate SP02 Pain Height Weight Body Mass Index Source May 18, 2023 09:30 AM 174/77 mm[Hg] [facility] May 18, 2023 09:20 AM 197/84 mm[Hg] [facility] May 18, 2023 09:15 AM 97.3 F 57 /min 204/72 mm[Hg] 96 % [facility] Social History: Smoking Status (Most current) and Tobacco Use (All prior to encounter date) This section includes the most current, and the historical, smoking and tobacco- related health factors from the ID facility where the Encounter took place. Current Smoking Status This section includes the most current smoking, or tobacco-related health factor, from the ID facility where the Encounter took place. Date/Time Current Smoking Status Comment Facil ity October 18, 2022 10:00 AM VA-TOBACCO NEVER USED [facility] Tobacco Use History This section includes a history of the smoking, or tobacco-related health factors, that were collected on or before the date of the Encounter. The data comes from the ID facility where the Encounter took place. Date/Time Smoking Status/Tobacco Use Comment F acility September 28, 2021 09:30 AM ID-TOBACCO NEVER USED [facility] Nov 10, 2020 08:30 AM ID-TOBACCO NEVER USED [facility] Pathology Reports: +/- 30 days of [...] the Encounter. The data comes from all ID treatment facilities. Date/Time Pathology Report Provider Source May 20, 2023 11:08 AM LR SURGICAL PATHOL LINO REPORT: LOCAL TITLE: LR SURGICAL PATHOLOGY REPORT STANDARD TITLE: PATHOLOGY REPORT DATE OF NOTE: MAY 20, 2023@11:08:01 ENTRY DATE: MAY 20, 2023@11:08:01 AUTHOR: BRIAN PARADA COSIGNER: URGENCY: STATUS: COMPLETED $APHDR Reporting Lab: [facility] [CLIA# [id number]] [facility] [address] - - - - - - - [...] - PATHOLOGY REPORT Accession No. [id number] - - - - - - - [...] - PATHOLOGY REPORT Accession No. [id number] - - - - - - - [...] 6 o'clock tip, en face. CE. [facility] DES[facility]: Microscopic examination performed. CI. DIAGNOSIS: Skin; left shoulder; excisional biopsy-- -no evidence of residual carcinoma -román /baltazar/ BRIAN PARADA M.D. STAFF PATHOLOGIST Signed May 20, 2023@11:08 Performing Laboratory: Surgical Pathology Report Performed By: [facility] [CLIA# [id number]] [place] [address] $FTR - - - - - - [...] - - ALICE MOBLEY STANDARD FORM 515 ID:[id number] SEX:F :1935 AGE: 88 LOC:[id number] PCP: Natalia Sales MD /baltazar/ BRIAN PARADA M.D. STAFF PATHOLOGIST Signed: 05/20/2023 11:08 BRIAN PARADA [facility] Encounter Notes: All associated encounter notes This section contains the clinical notes associated to the Encounter. Date/Time Encounter Note(s) Provider Source May 18, 2023 11:20 AM NURSING NOTE: LOCAL TITLE: [facility] OPERATING ROOM/PROCEDURE FIRE RISK ASSESSMENT STANDARD TITLE: NURSING NOTE DATE OF NOTE: MAY 18, 2023@11:20 ENTRY DATE: MAY 18, 2023@11:20:54 AUTHOR: ZECHARIAH BARRERA COSIGNER: URGENCY: STATUS: COMPLETED PROBLEM: FIRE RISK ASSESSMENT EXPECTED OUTCOME: Patient will remain free from injury related to surgical fire/ procedural fire NURSING ASSESSMENT: A. Is an alcohol-based skin antiseptic or other flammable solution being used preoperatively? Yes, Interventions TIME-OUT to include: Flammable prep solutions were contained in nonflammable packaging. Flammable prep solutions utilized were a unit dosed applicator. Allow flammable skin antiseptics to dry completely and fumes to dissipate per manufacture guidelines prior to applying drapes and before using a potential ignition source. Flammable solution soaked materials have been removed from the OR/Procedural area prior to draping and use of an ignition source. Comments: B. Is the procedure being performed above the xiphoid process or in the oropharynx? Yes, Interventions Coat head and facial hair near the site with water-soluble surgical lubricant to decrease flammability. Use an adhesive incise drape between the surgical/procedural site and the oxygen source. If oxygen concentration is greater than 30% consider laryngeal mask airway or endotracheal tube. Comments: C. Is open oxygen or nitrous oxide being administered (delivery via nasal cannula or face mask)? No D. Is an ESU (Electrical Surgical Unit), laser, or fiber optic cord being used? Yes, Interventions ESU Place the ESU in a location that does not put stress on the electrical cord. Keep the electrical cord dry and free of kinks, knots, and bends. Inspect the ESU cord before use, and do not use it if there is any evidence of breaks, nicks, or cracks in the outer insulation coating. Keep the active electrode cord free of kinks and coils during use. Only the person controlling the active electrode should activate the ESU. Use the lowest possible power setting for the ESU. Store the active electrode in a clean, dry, non-conductive safety holster when it is not in use. Keep sterile drapes or linens away from the activated ESU. Do not use an ignition source to enter the bowel or the trachea. Keep the ESU active electrode away from oxygen, nitrous oxide, or combustible anesthetic gas sources if possible. Do not activate the active electrode in the presence of flammable agents until the agents are dry and vapors have dissipated (eg, alcohol-based skin antiseptics, tinctures, de-fatting agents, collodion, petroleum-based lubricants, phenol, aerosol adhesives, uncured methyl methacrylate). Keep the active electrode tip clean. Use active electrode tips according to the banquet lead's instructions. Use only active electrodes or return electrodes that are compatible with the ESU. Seat the active electrode tip securely into the electrosurgical hand piece. Do not alter the active electrode tip (eg, by bending, by using insulation sheaths made from flammable materials such as rubber catheters). Activate the active electrode only when it is in close proximity to the target tissue and away from other metal objects that could conduct heat or cause arcing. Inspect minimally invasive electrosurgical instruments for impaired insulation and remove them from service if the insulation is not intact. Use cut or blend settings instead of coagulation when possible. Remove the active electrode tip from the electrosurgical hand piece before discarding it. Remove the batteries or disable the cautery tip before disposing of battery-powered, hand-held cautery units, if applicable. During perineal procedure, use moistened radiopaque sponges to cover or pack the anus. Comments: E. Other possible contributors to fire are present (defibrillator, drills, saws, burrs) No OUTCOME: Option 1. Patient is free from fire/burn injury. Additional comments: /baltazar/ ZECHARIAH BARRERA LPN Signed: 05/18/2023 11:21 ZECHARIAH BARRERA [facility] May 18, 2023 11:19 AM DERMATOLOGY NURSING OUTPATIENT NOTE: LOCAL TITLE: DERMATOLOGY CLINIC NURSING NOTE STANDARD TITLE: DERMATOLOGY NURSING OUTPATIENT NOTE DATE OF NOTE: MAY 18, 2023@11:19 ENTRY DATE: MAY 18, 2023@11:19:31 AUTHOR: ZECHARIAH BARRERA EXP COSIGNER: URGENCY: STATUS: COMPLETED DERMATOLOGY CLINIC NURSING NOTE Has ADDENDA Post Procedure Nursing Note Steri-strips, mastisol, telfa, dental rolls, and medipore white tape was applied to the surgical site on the Left Shoulder. This bandage should be kept clean and dry for 2 days. After 2 days the bandage can be removed, the patient may shower but avoid putting the surgical site directly into the shower stream. Steri-strips should stay in place until sutures are removed in 2 weeks on 06/01/23. Patient was given a kit to remove sutures at home (patient was advised to schedule if not comfortable removing sutures at home). If the steri-strips fall off prior to the suture removal date, the patient should begin daily dressing changes. The surgical site should be overed with vaseline, telfa, and ahesive tape once daily until sutures are removed. No other products should be used on the surgical site i.e., hydrogen peroxide, rubbing alcohol, skin oils, creams, prescriptions until the area is completely healed. Educational Screening: Barriers to Learning/Special Needs: No Barriers Identified Preferred Style of Learning: No preference stated Teaching Strategy: 1:1 Written/printed material Instruction: Patient/family/caregiver instructed in standard Post-Excision wound care. Printed instruction sheet provided for home reference: Care After Skin Surgery Patient Instruction Understanding: Patient/family/caregiver: Able to verbalize understanding. Follow up teaching: None needed /baltazar/ ZECHARIAH BARRERA LPN Signed: 05/18/2023 11:20 05/26/2023 ADDENDUM STATUS: COMPLETED [place] is requesting suture removal in clinic. Appt is scheduled /baltazar/ THELMA YANEZ RNconfiguration management manager Nurse Surgery Coordinator Signed: 05/26/2023 14:17 ZECHARIAH BARRERA [facility] May 18, 2023 11:13 AM DERMATOLOGY NURSING OUTPATIENT NOTE: LOCAL TITLE: DERMATOLOGY CLINIC NURSING NOTE STANDARD TITLE: DERMATOLOGY NURSING OUTPATIENT NOTE DATE OF NOTE: MAY 18, 2023@11:13 ENTRY DATE: MAY 18, 2023@11:13:13 AUTHOR: ZECHARIAH BARRERA EXP COSIGNER: URGENCY: STATUS: COMPLETED Pre-op Nursing Note Educational Screening: Barriers to Learning/Special Needs: No Barriers Identified Preferred Style of Learning: No preference stated Patient Information: History of artificial joints? Yes - Right Knee History of artificial heart valves? No History of stent? No History of rheumatic fever? No History of organ transplant? No Pacemaker present? No Defibrillator present? No Deep Brain Stimulator present? No Other Implantable Device present? No Physician notified. Presently taking anticoagulants? Yes. aspirin Not discontinued preoperatively. MD ramirez.Dermatology Clinic Nursing Note Vital Signs: Pulse: 57 (05/18/2023 09:15) Blood Pressure: 05/18/2023 204/72 at 9:15. 197/84 at 9:20. 174/77 at 9:30. Temp: 97.3 F [36.3 C] (05/18/2023 09:15) SaO2: 96% (05/18/2023 09:15) Pain: 0 (05/09/2023 15:00) /baltazar/ ZECHARIAH BARRERA LPN Signed: 05/18/2023 11:19 ZECHARIAH BARRERA [facility] May 18, 2023 10:23 AM DERMATOLOGY PROCEDURE NOTE: LOCAL TITLE: DERMATOLOGY PROCEDURE NOTE STANDARD TITLE: DERMATOLOGY PROCEDURE NOTE DATE OF NOTE: MAY 18, 2023@10:23 ENTRY DATE: MAY 18, 2023@10:23:59 AUTHOR: DICK WASSERMAN V EXP COSIGNER: URGENCY: STATUS: COMPLETED DERMATOLOGY PROCEDURE NOTE Has ADDENDA Dermatology Problem List # NMSC - SCC, left shoulder s/p [facility] 05/18/23 Dermatology Surgery Note Written/Informed patient consent obtained - please see chart. Patient was identified by using correct name and social security number. Procedure(s) to be performed was(were) discussed with patient and verified to be correct. I remained with the patient continuously from the time the decision is made to do the procedure and consent obtained up to the time of the procedure itself. Dr. Anthony Palomino was the supervising staff physician. He/she evaluated the patient, reviewed the plan, provided medically necessary supervision, and was ready to perform any service required as the surgeon. Consent has been obtained and documented via [employer] consent. If applicable, imaging data verified and confirmed. Patient positioning was verified prior to procedure if relevant. (supine, lateral) All necessary special equipment including implants were verified prior to procedure. Procedure Date and Start Time: Apr@09:24 Time Procedure completed: Apr@10:24 A time-out was taken prior to the procedure to verify correct patient, correct site and correct procedure. Site Marking: Site marked (as indicated by policy) Site 1 Diagnosis: Squamous Cell Carcinoma Procedure: excision Location: left shoulder Anesthesia: lidocaine 1% w/epinephrine 9cc Size: Lesion: 5mm Margins: 5mm Excised Diameter: 1.5cm Post-op: 4cm Sutures (#/type): Deep vicryl Superficial: prolene Complications: none Pathology: Orientationsuture medial Stains: Hematoxylin/Eosin Other: Follow-Up: Suture removal HOME 2 WEEKS Return visit SCHEDULED /baltazar/ DICK WASSERMAN MD RESIDENT Signed: 05/18/2023 10:28 05/20/2023 ADDENDUM STATUS: COMPLETED Skin; left shoulder; excisional biopsy-- -no evidence of residual carcinoma -scar /baltazar/ DICK WASSERMAN MD RESIDENT Signed: 05/20/2023 11:09 DICK WASSERMAN V [facility]
--- OUTSIDE RECORDS SUMMARY | 2023-06-24 08:45 | XMS_ITS | Encounter Summary ---
Author Name [facility] Organization [facility] Address [address] [place] [address] Insurance Providers: All historical and current Section Date Range: From patient's date of to the date document was created. This section includes the names of all active insurance providers for the patient. Insurance Provider Type of Coverage Plan Name Start of Policy Coverage End of Policy Coverage Group Number Member ID Insurance Provider's Telephone Number Policy Talavera's Name Patient's Relationship to Policy Talavera [facility] ([id number]) PRESCRIPT ION GEHA May 30, 2005 [id number] SONIA MOBLEY PATIENT GEHA (SECONDARY ) PREFERRED PROVIDER ORGANIZAT ION (PPO) GEHA A&B PRIMA RY May 30, 2005 [id number] SONIA MOBLEY PATIENT GEHA (SECONDARY ) PREFERRED PROVIDER ORGANIZAT ION (PPO) GEHA A/B PRIMA RY May 30, 2005 [id number] SONIA MOBLEY PATIENT [facility] PREFERRED PROVIDER ORGANIZAT ION (PPO) DO NOT USE May 30, 2005 [id number] TONI BRITO PATIENT MEDICARE (WNR) MEDICARE (M) PART A Jan 29, 2000 PART A [id number] SONIA MOBLEY PATIENT MEDICARE (WNR) MEDICARE (M) PART B Jan 29, 2000 PART B [id number] SONIA MOBLEY PATIENT Selected Encounter This section includes the information on record at [place] for the Encounter. Date/Time Encounter Type Encounter Description Reason Pro vider Source May 18, 2023 09:42 AM Outpatient Encounter EVENT (HISTORICAL) IHE Encounter Template Text not used by [place] Plan of Treatment: Future Appointments (+ 6 months) and Future Tests (+/- 45 days) The Plan of Treatment section includes future care activities for the patient from [facility] This section includes future appointments and future orders which are active, pending or scheduled. Future Appointments This section includes appointments that were scheduled to occur 6 months from the date of the Encounter, up to a maximum of 20 appointments. The data comes from all [facility]. Appointment Date/Time Appointment Type Appointme nt Facility Name May 24, 2023 05:00 PM AMBULATORY - REHAB [facility] May 31, 2023 01:00 PM AMBULATORY - SURGERY [facility] Jun 28, 2023 10:40 AM AMBULATORY - SURGERY [facility] Aug 09, 2023 11:00 AM AMBULATORY - REHAB [facility] Active, Pending, and Scheduled Orders This section includes a listing of several types of active, pending, and scheduled orders, including clinic medications orders, diagnostic test orders, procedure orders and consult orders; where the start date of the order is 45 days before the date of the Encounter or 45 days after the date of theEncounter. The data comes from all [facility]. Test Date/Time Test Type Test Details Facility Name Jun 07, 2023 03:06 PM Consult Order COMMUNITY CARE-MRI Cons Night Supervisor's Choice [facility] Jun 09, 2023 01:13 PM Pharmacy - Clinic Medication Order [facility] Vital Signs: All taken on the encounter date This section contains inpatient and outpatient Vital Signs collected on the date of the Encounter. Date/Time Temperature Pulse Blood Pressure Respiratory Rate SP02 Pain Height Weight Body Mass Index Source May 18, 2023 09:30 AM 174/77 mm[Hg] [facility] May 18, 2023 09:20 AM 197/84 mm[Hg] [facility] May 18, 2023 09:15 AM 97.3 F 57 /min 204/72 mm[Hg] 96 % [facility] Social History: Smoking Status (Most current) and Tobacco Use (All prior to encounter date) This section includes the most current, and the historical, smoking and tobacco- related health factors from the [place] facility where the Encounter took place. Current Smoking Status This section includes the most current smoking, or tobacco-related health factor, from the [place] facility where the Encounter took place. Date/Time Current Smoking Status Comment Facil ity October 18, 2022 10:00 AM VA-TOBACCO NEVER USED [facility] Tobacco Use History This section includes a history of the smoking, or tobacco-related health factors, that were collected on or before the date of the Encounter. The data comes from the [place] facility where the Encounter took place. Date/Time Smoking Status/Tobacco Use Comment F acility September 28, 2021 09:30 AM VA-TOBACCO NEVER USED [facility] Nov 10, 2020 08:30 AM VA-TOBACCO NEVER USED [facility] Pathology Reports: +/- 30 days [...] the Encounter. The data comes from all [place] treatment facilities. Date/Time Pathology Report Provider Source May 20, 2023 11:08 AM LR SURGICAL PATHOL OGY REPORT: LOCAL TITLE: LR SURGICAL PATHOLOGY REPORT STANDARD TITLE: PATHOLOGY REPORT DATE OF NOTE: MAY 20, 2023@11:08:01 ENTRY DATE: MAY 20, 2023@11:08:01 AUTHOR: BRIAN PARADA COSIGNER: URGENCY: STATUS: COMPLETED $APHDR Reporting Lab: [facility] [CLIA# [id number]] [place] [address] - - - - - - - [...] - PATHOLOGY REPORT Accession No. [id number] - - - - - - - [...] - PATHOLOGY REPORT Accession No. [id number] - - - - - - - [...] 6 o'clock tip, en face. [facility]. [facility] DES[facility]: Microscopic examination performed. CI. DIAGNOSIS: Skin; left shoulder; excisional biopsy-- -no evidence of residual carcinoma -román /baltazar/ BRIAN PARADA M.D. STAFF PATHOLOGIST Signed May 20, 2023@11:08 Performing Laboratory: Surgical Pathology Report Performed By: [facility] [CLIA# [id number]] [place] [address] $FTR - - - - - - [...] - - ALICE MOBLEY STANDARD FORM 515 ID:[id number] SEX:F :1935 AGE: 88 LOC:[id number] PCP: Natalia Sales MD /baltazar/ BRIAN PARADA M.D. STAFF PATHOLOGIST Signed: 05/20/2023 11:08 BRIAN PARADA [facility]
--- OUTSIDE RECORDS SUMMARY | 2023-06-24 08:46 | XMS_ITS | Encounter Summary ---
Author Name [facility] Organization [facility] Address [address] [place] [address] Insurance Providers: All historical and current Section Date Range: From patient's date of to the date document was created. This section includes the names of all active insurance providers for the patient. Insurance Provider Type of Coverage Plan Name Start of Policy Coverage End of Policy Coverage Group Number Member ID Insurance Provider's Telephone Number Policy Talavera's Name Patient's Relationship to Policy Talavera RAFAELSTARKE ([id number]) PRESCRIPT ION GEHA May 30, 2005 [id number] [phone] SONIA MOBLEY PATIENT GEHA (SECONDARY ) PREFERRED PROVIDER ORGANIZAT ION (PPO) GEHA A/B PRIMA RY May 30, 2005 [id number] SONIA MOBLEY PATIENT GEHA (SECONDARY ) PREFERRED PROVIDER ORGANIZAT ION (PPO) GEHA A&B PRIMA RY May 30, 2005 [id number] [phone] SONIA MOBLEY PATIENT [facility] PREFERRED PROVIDER ORGANIZAT ION (PPO) DO NOT USE May 30, 2005 [id number] [phone] TONI BRITO PATIENT MEDICARE (WNR) MEDICARE (M) PART A Jan 29, 2000 PART A [id number] [phone] SONIA MOBLEY PATIENT MEDICARE (WNR) MEDICARE (M) PART B Jan 29, 2000 PART B [id number] [phone] SONIA MOBLEY PATIENT Selected Encounter This section includes the information on record at [place] for the Encounter. Date/Time Encounter Type Encounter Description Reason Pro vider Source Jun 08, 2023 09:15 AM Outpatient Encounter ADMIN PAT ACTIVTIES (MASNONCT) IHE Encounter Template Text not used by [place] Plan of Treatment: Future Appointments (+ 6 months) and Future Tests (+/- 45 days) The Plan of Treatment section includes future care activities for the patient [facility] [place] [facility] This section includes future appointments and future orders which are active, pending or scheduled. Future Appointments This section includes appointments that were scheduled to occur 6 months from the date of the Encounter, up to a maximum of 20 appointments. The data comes from all [facility]. Appointment Date/Time Appointment Type Appointme nt Facility Name Jun 28, 2023 10:40 AM AMBULATORY - SURGERY [facility] Aug 09, 2023 11:00 AM AMBULATORY - REHAB MEDICIN E [facility] Active, Pending, and Scheduled Orders This section includes a listing of several types of active, pending, and scheduled orders, including clinic medications orders, diagnostic test orders, procedure orders and consult orders; where the start date of the order is 45 days before the date of the Encounter or 45 days after the date of theEncounter. The data comes from all [facility]. Test Date/Time Test Type Test Details Facility Name Jun 07, 2023 03:06 PM Consult Order COMMUNITY CARE-MRI Cons Pre Wave Assembler's Choice [facility] Jun 09, 2023 01:13 PM Pharmacy - Clinic Medication Order [facility] Social History: Smoking Status (Most current) and Tobacco Use (All prior to encounter date) This section includes the most current, and the historical, smoking and tobacco- related health factors from the [place] facility where the Encounter took place. Current Smoking Status This section includes the most current smoking, or tobacco-related health factor, from the [place] facility where the Encounter took place. Date/Time Current Smoking Status Comment Robyn ity October 18, 2022 10:00 AM [place]-TOBACCO NEVER USED [facility] Tobacco Use History This section includes a history of the smoking, or tobacco-related health factors, that were collected on or before the date of the Encounter. The data comes from the [place] facility where the Encounter took place. Date/Time Smoking Status/Tobacco Use Comment F acnelia September 28, 2021 09:30 AM [place]-TOBACCO NEVER USED [facility] Nov 10, 2020 08:30 AM [place]-TOBACCO NEVER USED [facility] Pathology Reports: +/- 30 days [...] the Encounter. The data comes from all [place] treatment facilities. Date/Time Pathology Report Provider Source May 20, 2023 11:08 AM LR SURGICAL PATHOL OGY REPORT: LOCAL TITLE: LR SURGICAL PATHOLOGY REPORT STANDARD TITLE: PATHOLOGY REPORT DATE OF NOTE: MAY 20, 2023@11:08:01 ENTRY DATE: MAY 20, 2023@11:08:01 AUTHOR: BRIAN PARADA COSIGNER: URGENCY: STATUS: COMPLETED $APHDR Reporting Lab: [facility] [CLIA# [id number]] [place] [address] - - - - - - - [...] - PATHOLOGY REPORT Accession No. [id number] - - - - - - - [...] - PATHOLOGY REPORT Accession No. [id number] - - - - - - - [...] 6 o'clock tip, en face. CE. (D) [facility] [place] MICROSCOPIC DESCRIPTION: Microscopic examination performed. CI. 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 STAFF PATHOLOGIST Signed May 20, 2023@11:08 Performing Laboratory: Surgical Pathology Report Performed By: [facility] [CLIA# [id number]] [place] [address] $FTR - - - - - - - - - - - - - - - - - - - - - - - - - - - - - - - - - - - - - - - - (End of report) BRIAN PARADA MD [facility] Date May 20, 2023 - - - - - - - - - - - - - - - - - - - - - - - - - - - - - - - - - - - - - - - - ALICE MOBLEY STANDARD FORM 515 ID:[id number] SEX:F :1935 AGE: 88 LOC:[id number] PCP: Natalia Sales MD /baltazar/ BRIAN PARADA M.D. STAFF PATHOLOGIST Signed: 05/20/2023 11:[address] [facility] Encounter Notes: All associated encounter notes This section contains the clinical notes associated to the Encounter. Date/Time Encounter Note(s) Provider Source Jun 08, 2023 09:15 AM RADIOLOGY NOTE: LOCAL TITLE: RADIOLOGY CONTRAST NOTE STANDARD TITLE: RADIOLOGY NOTE DATE OF NOTE: JUN 08, 2023@09:15 ENTRY DATE: JUN 08, 2023@09:16:09 AUTHOR: TANISHA MARCANO EXP COSIGNER: URGENCY: STATUS: COMPLETED VistA Imaging - Scanned Document MRI CONTRAST ORDER /baltazar/ TANISHA MARCANO RCT-ADVANCED CUFF SETTER LOCKSTITCH Signed: 06/08/2023 09:[address] [facility]
--- OUTSIDE RECORDS SUMMARY | 2023-06-24 08:46 | XMS_ITS | Encounter Summary ---
Author Name [facility] Organization [facility] Address [address] [place] [address] Insurance Providers: All historical and current Section Date Range: From patient's date of to the date document was created. This section includes the names of all active insurance providers for the patient. Insurance Provider Type of Coverage Plan Name Start of Policy Coverage End of Policy Coverage Group Number Member ID Insurance Provider's Telephone Number Policy Talavera's Name Patient's Relationship to Policy Talavera [facility] ([id number]) PRESCRIPT ION GEHA May 30, 2005 [id number] [phone] SONIA MOBLEY PATIENT GEHA (SECONDARY ) PREFERRED PROVIDER ORGANIZAT ION (PPO) GEHA A&B PRIMA RY May 30, 2005 [id number] SONIA MOBLEY PATIENT GEHA (SECONDARY ) PREFERRED PROVIDER ORGANIZAT ION (PPO) GEHA A/B PRIMA RY May 30, 2005 [id number] [phone] SONIA MOBLEY PATIENT [facility] PREFERRED PROVIDER ORGANIZAT ION (PPO) DO NOT USE May 30, 2005 [id number] TONI BRITO PATIENT MEDICARE (WNR) MEDICARE (M) PART A Jan 29, 2000 PART A [id number] [phone] SONIA MOBLEY PATIENT MEDICARE (WNR) MEDICARE (M) PART B Jan 29, 2000 PART B [id number] [phone] SONIA MOBLEY PATIENT Selected Encounter This section includes the information on record at [place] for the Encounter. Date/Time Encounter Type Encounter Description Reason Pro vider Source Jun 14, 2023 09:47 AM Outpatient Encounter COMMUNITY CARE CONSULT IHE Encounter Template Text not used by [place] Plan of Treatment: Future Appointments (+ 6 months) and Future Tests (+/- 45 days) The Plan of Treatment section includes future care activities for the patient from all [place] [facility] This section includes future appointments and future orders which are active, pending or scheduled. Future Appointments This section includes appointments that were scheduled to occur 6 months from the date of the Encounter, up to a maximum of 20 appointments. The data comes from all [facility]. Appointment Date/Time Appointment Type Appointme nt Facility Name Jun 28, 2023 10:40 AM AMBULATORY - [facility] Aug 09, 2023 11:00 AM AMBULATORY - REHAB MEDICIN E [facility] Active, Pending, and Scheduled Orders This section includes a listing of several types of active, pending, and scheduled orders, including clinic medications orders, diagnostic test orders, procedure orders and consult orders; where the start date of the order is 45 days before the date of the Encounter or 45 days after the date of theEncounter. The data comes from all [facility]. Test Date/Time Test Type Test Details Facility Name Jun 07, 2023 03:06 PM Consult Order COMMUNITY CARE-MRI Cons Seasonal Customer Service Associate's Choice [facility] Jun 09, 2023 01:13 PM Pharmacy - Clinic Medication Order [facility] Social History: Smoking Status (Most [...] 18, 2022 10:00 AM [place]TOBAC[place] NEVER USED [facility] Tobacco Use History This section includes a history of the smoking, or tobacco-related health factors, that were collected on or before the date of the Encounter. The data comes from the [place] facility where the Encounter took place. Date/Time Smoking Status/Tobacco Use Comment F acnelia September 28, 2021 09:30 AM [place]-TOB[place] NEVER US[place] [facility] Nov 10, 2020 08:30 AM [place]-TOBAC[place] NEVER US[place] [facility] Pathology Reports: +/- 30 days [...] the Encounter. The data comes from all [place] treatment facilities. Date/Time Pathology Report Provider Source May 20, 2023 11:08 AM LR SURGICAL PATHOL OGY REPORT: LOCAL TITLE: LR SURGICAL PATHOLOGY REPORT STANDARD TITLE: PATHOLOGY REPORT DATE OF NOTE: MAY 20, 2023@11:08:01 ENTRY DATE: MAY 20, 2023@11:08:01 AUTHOR: BRIAN PARADA COSIGNER: URGENCY: STATUS: COMPLETED $APHDR Reporting Lab: [facility] [CLIA# [id number]] [place] [address] - - - - - - - [...] - PATHOLOGY REPORT Accession No. [id number] - - - - - - - [...] - PATHOLOGY REPORT Accession No. [id number] - - - - - - - [...] 6 o'clock tip, en face. CE. (D) [facility] [place] MICROSCOPIC DESCRIPTION: Microscopic examination performed. CI. 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 STAFF PATHOLOGIST Signed May 20, 2023@11:08 Performing Laboratory: Surgical Pathology Report Performed By: [facility] [CLIA# [id number]] [place] [address] $FTR - - - - - - [...] - - ALICE MOBLEY STANDARD FORM 515 ID:[id number] SEX:F :1935 AGE: 88 LOC:85952 PCP: Natalia Sales MD /baltazar/ BRIAN PARADA M.D. STAFF PATHOLOGIST Signed: 05/20/2023 11:08 BRIAN PARADA [facility] Encounter Notes: All associated encounter notes This section contains the clinical notes associated to the Encounter. Date/Time Encounter Note(s) Provider Source Jun 14, 2023 09:47 AM NONVA NOTE: LOCAL TITLE: COMMUNITY CARE PRE-AUTH LETTER (AUTOPRINT) STANDARD TITLE: NONVA NOTE DATE OF NOTE: JUN 14, 2023@09:47 ENTRY DATE: JUN 14, 2023@09:47:45 AUTHOR: EMILY FLOWER COSIGNER: URGENCY: STATUS: COMPLETED May ALICE MOBLEY [address] [place] [address] [address] Dear ALICE MOBLEY, Your VA provider has referred you to a provider within the community for care. Your medical care for RADIOLOGY MRI has been authorized with the community care provider listed below. DO NOT REPORT TO THE [place] [facility] Provider info: Care has been approved for the following vendor: Office name, address, and phone number: [address] [address] Please contact the identified provider to schedule your community appointment. If you need assistance with this appointment, please call your facility community care office [facility] Office of Community Care at [phone] during the hours of 8:30AM - 3:00PM. Please follow up with your local [facility] community care office once this is scheduled. This step is needed to ensure your referral duration is maximized and the VA has accurate referral information for billing purposes. Authorization Number: [id number] Referral Issue Date: May Expiration Date: Jul (subject to change based on first appointment) If you are unable to schedule this appointment or the appointment is no longer needed, please contact the community provider above for notification/rescheduling and then call the [facility] Office of Community Care at [phone] during the hours of 8:30AM - 3:00PM. If you need additional care/services not mentioned above or your authorization has and additional care is needed, please contact your primary care provider for a new referral. To review all care/service(s) approved under your referral, please go to the following link: [employer] [place] [facility](ChangeTip) Co-Payments: If you are required to pay a VA co-payment, you will be billed by the [place] for each authorized visit that you attend. However, you are NOT REQUIRED to make co-payments to a community provider. Thank you for the opportunity to serve you. Sincerely, [place] Community [facility] (VACC) /baltazar/ EMILY FLOWER ADVANCED MSA Signed: 06/14/2023 09:[address] [facility]
--- OUTSIDE RECORDS SUMMARY | 2023-06-24 08:46 | XMS_ITS | Encounter Summary ---
Author Name Department of [facility] Organization Department of [facility] Address [address] [place] [address] Insurance Providers: All historical and current Section [...] Patient's Relationship to Policy Talavera [facility] ([id number]) PRESCRIPT ION GEHA May 30, 2005 [id number] [phone] SONIA MOBLEY PATIENT GEHA (SECONDARY ) PREFERRED PROVIDER ORGANIZAT ION (PPO) GEHA A/B PRIMA RY May 30, 2005 [id number] [phone] SONIA MOBLEY PATIENT GEHA (SECONDARY ) PREFERRED PROVIDER ORGANIZAT ION (PPO) GEHA A&B PRIMA RY May 30, 2005 [id number] SONIA MOBLEY PATIENT GEHA[facility] PREFERRED PROVIDER ORGANIZAT ION (PPO) DO NOT USE May 30, 2005 [id number] [phone] TONI BRITO PATIENT MEDICARE (WNR) MEDICARE (M) PART A Jan 29, 2000 PART A [id number] SONIA MOBLEY PATIENT MEDICARE (WNR) MEDICARE (M) PART B Jan 29, 2000 PART B [id number] [phone] SONIA MOBLEY PATIENT Selected Encounter This section includes the information on record at [place] for the Encounter. Date/Time Encounter Type Encounter Description Reason Provider Source Jun 09, 2023 10:25 AM PRO PHONE CALL 11-20 MIN TELEPHONE PRIMARY CARE ICD-10-CM Z71.9 Counseling, unspecified MARY VANEGAS May Encounter Template Text not used by [place] Assessments - Encounter Diagnoses This section includes the primary and secondary diagnoses documented for the Encounter. Date/Time Primary/Secondary Diagnosis Diagnosis Name Provider Source Jun 09, 2023 10:25 AM PRIMARY Counseling, unspecified MARY VANEGAS [facility] Plan of Treatment: Future Appointments (+ 6 months) and Future Tests (+/- 45 days) The Plan of Treatment section includes future care activities for the patient from all [place] [facility] This section includes future appointments and future orders which are active, pending or scheduled. Future Appointments This section includes appointments that were scheduled to occur 6 months from the date of the Encounter, up to a maximum of 20 appointments. The data comes from all [place] treatment facilities. Appointment Date/Time Appointment Type Appointme nt Facility Name Jun 28, 2023 10:40 AM AMBULATORY - SURGERY [facility] Aug 09, 2023 11:00 AM AMBULATORY - REHAB MEDICIN E [facility] Active, Pending, and Scheduled Orders This section includes a listing of several types of active, pending, and scheduled orders, including clinic medications orders, diagnostic test orders, procedure orders and consult orders; where the start date of the order is 45 days before the date of the Encounter or 45 days after the date of theEncounter. The data comes from all [place] treatment [facility]. Test Date/Time Test Type Test Details Facility Name Jun 07, 2023 03:06 PM Consult Order COMMUNITY CARE-MRI Cons Registrar [facility] Jun 09, 2023 01:13 PM Pharmacy - Clinic Medication Order [facility] Social History: Smoking Status (Most current) [...] 18, 2022 10:00 AM [place]-TOBACCO NEVER USED [facility] Tobacco Use History This section includes a history of the smoking, or tobacco-related health factors, that were collected on or before the date of the Encounter. The data comes from the [place] facility where the Encounter took place. Date/Time Smoking Status/Tobacco Use Comment F manoj September 28, 2021 09:30 AM VA-TOBACCO NEVER USED [facility] Nov 10, 2020 08:30 AM VA-TOBACCO NEVER USED [facility] Pathology Reports: +/- 30 days of [...] URGENCY: STATUS: COMPLETED $APHDR Reporting Lab: [facility] [CLIA# [id number]] [place] [address] - - - - - - - [...] - PATHOLOGY REPORT Accession No. [id number] - - - - - - - - - - - - - - - - - - - - - - - - - - - - - - - - - - - - - - - - $TEXT Submitted by: DICK AWSSERMAN V Date obtained: May 18, 2023 - [...] - PATHOLOGY REPORT Accession No. [id number] - - - - - - - [...] 6 o'clock tip, en face. [facility]. [facility] MICROSCOPIC DESCRIPTION: Microscopic examination performed. CI. 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 STAFF PATHOLOGIST Signed May 20, 2023@11:08 Performing Laboratory: Surgical Pathology Report Performed By: [facility] [CLIA# [id number]] [place] [address] $FTR - - - - - - [...] - - ALICE MOBLEY STANDARD FORM 515 ID:[id number] SEX:F :1935 AGE: 88 LOC:[id number] PCP: Natalia Sales MD /baltazar/ BRIAN PARADA M.D. STAFF PATHOLOGIST Signed: 05/20/2023 11:[address] [facility] Encounter Notes: All associated encounter notes This section contains the clinical notes associated to the Encounter. Date/Time Encounter Note(s) Provider Source Jun 10, 2023 10:13 AM ADDENDUM: LOCAL TITLE: Addendum STANDARD TITLE: ADDENDUM DATE OF NOTE: JUN 10, 2023@10:13:54 ENTRY DATE: JUN 10, 2023@10:13:56 AUTHOR: WEI TREJO EXP COSIGNER: URGENCY: STATUS: COMPLETED Yes, would recommend COVID vaccine and RSV vaccine. They can be given on the same day, but it may be better to separate them by a couple days to decrease side effects (fevers, aches, etc) and may result in a stronger immune response than when given together. /baltazar/ Natalia Sales MD STAFF PHYSICIAN Signed: 06/10/2023 10:19 Receipt Acknowledged By: 06/10/2023 10:25 /es/ MICKI JAIN REGISTERED NURSE --- Original Document --- 06/09/23 [facility] NURSING NOTE: Risk Factors (X)Adults 60 & older with underlying health conditions including any of the following: ( )Lung disease (e.g. COPD and asthma) (X)Chronic cardiovascular disease (e.g. CHF and CAD) ( )Diabetes Mellitus ( )Neurologic or neuromuscular conditions ( )Kidney disorders ( )Liver disorders ( )Hematologic disorders ( )Moderate to severe immune compromise (medical condition or receipt of immunosuppressive medications or treatments) Other underlying factors that may increase the risk of severe RSV-associated respiratory illness: (X)Frailty (X)Advanced age ( )Residence in a fci or other LTC facility ( )Other underlying factors Current Vaccine status: (X)Last Flu vaccine: Jan (X)Last Covid vaccine: Will be getting this week or early next week The following education was reviewed with the patient: (X)Transmission (X)Symptoms & side effects (X)Contraindications (X)Precautions (X)Adverse Events The patient stated that their concern level for melissa RSV is: Intermediate They continue to express a desire to obtain this vaccine. Patient is asking for PCP to give recommendations if she should get the vaccine. She is getting it at the assisted living and will be using private insurance to pay. /es/ MARY VANEGAS RN REGISTERED NURSE Signed: 06/09/2023 10:39 Receipt Acknowledged By: 06/09/2023 12:44 /es/ Natalia Sales MD STAFF PHYSICIAN 06/10/2023 ADDENDUM STATUS: COMPLETED called to follow up on recommendation for RSV vaccine and if she should get another COVID shot. Please call back at [phone]. /es/ SOLO TUTTLE Med Surg Nurse Signed: 06/10/2023 09:43 Receipt Acknowledged By: 06/10/2023 09:47 /es/ MICKI JAIN REGISTERED NURSE 06/10/2023 ADDENDUM STATUS: COMPLETED alerting PCP for recommendation /talat JAIN REGISTERED NURSE Signed: 06/10/2023 09:48 06/10/2023 ADDENDUM STATUS: COMPLETED vet informed of the above /talat JAIN REGISTERED NURSE Signed: 06/10/2023 10:[address] [facility] Jun 10, 2023 09:42 AM ADDENDUM: LOCAL TITLE: Addendum STANDARD TITLE: ADDENDUM DATE OF NOTE: JUN 10, 2023@09:42:19 ENTRY DATE: JUN 10, 2023@09:42:21 AUTHOR: SOLO TUTTLE COSIGNER: URGENCY: STATUS: COMPLETED [place] called to follow up on recommendation for RSV vaccine and if she should get another COVID shot. Please call back at [phone]. /baltazar/ SOLO TUTTLE Med Surg Nurse Signed: 06/10/2023 09:43 Receipt Acknowledged By: 06/10/2023 09:47 /baltazar/ MICKI JAIN REGISTERED NURSE --- Original Document --- 06/09/23 [facility]: Risk Factors (X)Adults 60 & older with underlying health conditions including any of the following: ( )Lung disease (e.g. COPD and asthma) (X)Chronic cardiovascular disease (e.g. CHF and CAD) ( )Diabetes Mellitus ( )Neurologic or neuromuscular conditions ( )Kidney disorders ( )Liver disorders ( )Hematologic disorders ( )Moderate to severe immune compromise (medical condition or receipt of immunosuppressive medications or treatments) Other underlying factors that may increase the risk of severe RSV-associated respiratory illness: (X)Frailty (X)Advanced age ( )Residence in a fci or other LTC facility ( )Other underlying factors Current Vaccine status: (X)Last Flu vaccine: Jan (X)Last Covid vaccine: Will be getting this week or early next week The following education was reviewed with the patient: (X)Transmission (X)Symptoms & side effects (X)Contraindications (X)Precautions (X)Adverse Events The patient stated that their concern level for melissa RSV is: Intermediate They continue to express a desire to obtain this vaccine. Patient is asking for PCP to give recommendations if she should get the vaccine. She is getting it at the assisted living and will be using private insurance to pay. /baltazar/ MARY VANEGAS RN REGISTERED NURSE Signed: 06/09/2023 10:39 Receipt Acknowledged By: 06/09/2023 12:44 /baltazar/ Natalia Sales MD STAFF PHYSICIAN 06/10/2023 ADDENDUM STATUS: COMPLETED alerting PCP for recommendation /baltazar/ MICKI JAIN REGISTERED NURSE Signed: 06/10/2023 09:[address] [facility] Jun 09, 2023 10:25 AM [facility]: LOCAL TITLE: [facility] NOTE STANDARD TITLE: [facility] OUTPATIENT NOTE DATE OF NOTE: JUN 09, 2023@10:25 ENTRY DATE: JUN 09, 2023@10:25:46 AUTHOR: MARY VANEGAS EXP COSIGNER: URGENCY: STATUS: COMPLETED [facility] N[facility] Has ADDENDA Risk Factors (X)Adults 60 & older with underlying health conditions including any of the following: ( )Lung disease (e.g. COPD and asthma) (X)Chronic cardiovascular disease (e.g. CHF and CAD) ( )Diabetes Mellitus ( )Neurologic or neuromuscular conditions ( )Kidney disorders ( )Liver disorders ( )Hematologic disorders ( )Moderate to severe immune compromise (medical condition or receipt of immunosuppressive medications or treatments) Other underlying factors that may increase the risk of severe RSV-associated respiratory illness: (X)Frailty (X)Advanced age ( )Residence in a fci or other LTC facility ( )Other underlying factors Current Vaccine status: (X)Last Flu vaccine: Jan (X)Last Covid vaccine: Will be getting this week or early next week The following education was reviewed with the patient: (X)Transmission (X)Symptoms & side effects (X)Contraindications (X)Precautions (X)Adverse Events The patient stated that their concern level for melissa RSV is: Intermediate They continue to express a desire to obtain this vaccine. Patient is asking for PCP to give recommendations if she should get the vaccine. She is getting it at the assisted living and will be using private insurance to pay. /baltazar/ MARY VANEGAS RN REGISTERED NURSE Signed: 06/09/2023 10:39 Receipt Acknowledged By: 06/09/2023 12:44 /baltazar/ Natalia Sales MD STAFF PHYSICIAN 06/10/2023 ADDENDUM STATUS: COMPLETED [place] called to follow up on recommendation for RSV vaccine and if she should get another COVID shot. Please call back at [phone]. /baltazar/ SOLO TUTTLE Med Surg Nurse Signed: 06/10/2023 09:43 Receipt Acknowledged By: 06/10/2023 09:47 /baltazar/ MIKCI JAIN REGISTERED NURSE 06/10/2023 ADDENDUM STATUS: COMPLETED alerting PCP for recommendation /talat RENTERIA NURSE Signed: 06/10/2023 09:48 06/10/2023 ADDENDUM STATUS: COMPLETED Yes, would recommend COVID vaccine and RSV vaccine. They can be given on the same day, but it may be better to separate them by a couple days to decrease side effects (fevers, aches, etc) and may result in a stronger immune response than when given together. /baltazar/ Natalia Sales MD STAFF PHYSICIAN Signed: 06/10/2023 10:19 Receipt Acknowledged By: 06/10/2023 10:25 /talat JAIN REGISTERED NURSE 06/10/2023 ADDENDUM STATUS: COMPLETED vet informed of the above /talat JAIN REGISTERED NURSE Signed: 06/10/2023 10:[address] [facility]
--- OUTSIDE RECORDS SUMMARY | 2023-06-24 08:46 | XMS_ITS | Clinical Summary ---
Author Name Unknown Organization [facility] Address [place], [place] [address] Care Team Providers Care Portfolio Management Marketing Name Role Phone Natalia Jameson MD Primary Care Provider Allergies No known active allergies Medications Medication Sig Dispensed Refills Start Date End Date Status alendronate (FOSAMAX) 35 mg tablet Take 35 mg by mouth once a week in the morning. Take on empty stomach with full glass of water. Do not lie down for 1 hr. 0 Active atorvastatin (LIPITOR) 80 mg tablet Take 80 mg by mouth at bedtime. 0 Active anastrozole (ARIMIDEX) 1 mg tablet Take 1 mg by mouth once daily. 0 Active aspirin chewable 81 mg chewable tablet Take 81 mg by mouth once daily with a meal. 0 Active Cholecalciferol, Vitamin D3, (VITAMIN D-3) 5,000 unit tab Take 5,000 Units by mouth once daily. 0 Active calcium citrate-vitamin D3, 315 mg-250 units, (CITRACAL WITH VITAMIN D) 315 mg- 250 unit tab tablet Take 2 tablets by mouth once daily with a meal. 0 Active hydroCHLOROthiazide 12.5 mg tablet Take 12.5 mg by mouth once daily. 0 Active omeprazole 20 mg tablet Take 20 mg by mouth every 72 hours. 0 Active metoprolol succinate (TOPROL XL) 25 mg Sustained-Release tabletIndications:Hyp ertension Take 1 tablet by mouth once daily. 30 tablet 0 07/08/2020 Active lisinopriL (PRINIVIL; ZESTRIL) 20 mg tabletIndications:Hyp ertension Take 1 tablet by mouth once daily. 30 tablet 0 07/07/2020 Active amLODIPine (NORVASC) 10 mg tablet Take 0.5 Tablets by mouth once daily. 0 09/30/2021 Active calcium carbonate-vitamin D 250 mg-3.125 mcg (125 unit) tab Take 2 Tablets by mouth once daily. 0 03/16/2021 Active omeprazole (PRILOSEC-OTC) 20 mg tablet Take 20 mg by mouth once daily if needed. 0 Active Active Problems Problem Noted Date Diagnosed Date Near syncope 07/06/2020 HTN (hypertension) 11/27/2018 CAD (coronary artery disease) 11/27/2018 GERD (gastroesophageal reflux disease) 9 Breast cancer 11/27/2018 Osteopenia 11/27/2018 YOUSIF (obstructive sleep apnea) - not on cpap 05/2018 Cholecystitis 11/27/2018 Probable Choledocholithiasis 11/27/2018 Flat foot(734) 07/13/2007 Resolved Problems Problem Noted Date Diagnosed Date Resolved Date NSTEMI (non-ST elevated myoc ardial infarction) 07/06/2020 07/06/2020 Social History Tobacco Use Types Packs/Day Years Used Date Smoking Tobacco: Never Smokeless Tobacco: Never Tobacco Cessation:Counseling Given: Yes Alcohol Use Standard Drinks/Week Comments Not Asked 0 (1 standard drink = 0.6 oz pur e alcohol) Sex and Gender Information Value Date Recorded Sex Assigned at Not on file Gender Identity Not on file Sexual Orientation Not on file Obstetrics History Last Filed Vital Signs Vital Sign Reading Time Taken Comments Blood Pressure 111/67 11/05/2021 2:59 PM CDT Pulse 93 11/05/2021 2:59 PM CDT Temperature 36.4 ??C (97.6 ??F) 07/07/2020 3:42 PM CS T Respiratory Rate 16 07/07/2020 3:42 PM [facility] Oxygen Saturation 98% 11/05/2021 2:59 PM CDT Inhaled Oxygen Concentration - - Weight 72.3 kg (159 lb 8 oz) 11/05/2021 2:59 PM CDT Height 162.6 cm (5' 4) 07/06/2020 1:06 AM [facility] Body Mass Index 27.38 07/06/2020 1:06 AM [facility] Plan of Treatment Health Maintenance Due Date Last Done Comments Tdap 1946 Depression screening for age 12+ 1947 BMI (ht and wt on same day) for age 18+ 1953 Tetanus booster 1955 Zoster (shingles) series for age 50+ (1 of 2) 1985 Medicare Wellness for age 65+ 02/14/2000 Pneumococcal series for age 65+ (1 of 1 - PCV) 02/14/2000 COVID-19 vaccine series (2022-24 season) 2023 06/29/2022, 04/01/2022, 09/29/2021, Additional history exists Influenza for age 65+ 01/28/2023 DEXA/DXA scan for age 65+ Completed 11/23/2021 Advance Directives Latest Code Status on File Code Status Date Activated Date Inactivated Comments DNR 07/06/2020 1:11 AM 07/07/2020 6:59 PM Question Answer Comments Code Status Discussion: Discussed Code Status History Code Status Date Activated Date Inactivated Comments DNR 11/27/2018 3:04 PM 11/29/2018 1:14 PM Patient will reverse code status for procedures Question Answer Comments Code Status Discussion: Discussed Care Teams Portfolio Management Marketing Relationship Specialty Start Date [place] [address] PCP - General 11/05/21
--- OUTSIDE RECORDS SUMMARY | 2023-06-24 08:46 | XMS_ITS | Encounter Summary ---
Author Name Department of [facility] Organization Department of [facility] Address [address] [place] [address] Insurance Providers: All historical and current Section [...] Relationship to Policy Talavera [facility] ([id number]) PRESCRIPT ION GEHA May 30, 2005 [id number] [phone] SONIA MOBLEY PATIENT GEHA (SECONDARY ) PREFERRED PROVIDER ORGANIZAT ION (PPO) GEHA A/B PRIMA RY May 30, 2005 [id number] [phone] SONIA MOBLEY PATIENT GEHA (SECONDARY ) PREFERRED PROVIDER ORGANIZAT ION (PPO) GEHA A&B PRIMA RY May 30, 2005 [id number] SONIA MOBLEY PATIENT [facility] PREFERRED PROVIDER ORGANIZAT ION (PPO) DO NOT USE May 30, 2005 [id number] TONI BRITO PATIENT MEDICARE (WNR) MEDICARE (M) PART A Jan 29, 2000 PART A [id number] [phone] SONIA MOBLEY PATIENT MEDICARE (WNR) MEDICARE (M) PART B Jan 29, 2000 PART B [id number] [phone] SONIA MOBLEY PATIENT Selected Encounter This section includes the information on record at [place] for the Encounter. Date/Time Encounter Type Encounter Description Reason Pro vider Source Jun 09, 2023 07:18 AM Outpatient Encounter COMMUNITY CARE CONSULT IHE Encounter Template Text not used by [place] Plan of Treatment: Future Appointments (+ 6 months) and Future Tests (+/- 45 days) The Plan of Treatment section includes future care activities for the patient from all [place] [facility]. This section includes future appointments and future orders which are active, pending or scheduled. Future Appointments This section includes appointments that were scheduled to occur 6 months from the date of the Encounter, up to a maximum of 20 appointments. The data comes from all [facility]. Appointment Date/Time Appointment Type Appointme nt Facility Name Jun 28, 2023 10:40 AM [facility] Aug 09, 2023 11:00 AM AMBULATORY - REHAB MEDICIN E [facility] Active, Pending, and Scheduled Orders This section includes a listing of several types of active, pending, and scheduled orders, including clinic medications orders, diagnostic test orders, procedure orders and consult orders; where the start date of the order is 45 days before the date of the Encounter or 45 days after the date of theEncounter. The data comes from all [facility]. Test Date/Time Test Type Test Details Facility Name Jun 07, 2023 03:06 PM Consult Order COMMUNITY CARE-MRI Cons Receptionist Airline [facility] Jun 09, 2023 01:13 PM Pharmacy - Clinic Medication Order [facility] Social History: Smoking Status (Most [...] 18, 2022 10:00 AM VA-TOBACCO NEVER USED [facility] Tobacco Use History This section includes a history of the smoking, or tobacco-related health factors, that were collected on or before the date of the Encounter. The data comes from the [place] facility where the Encounter took place. Date/Time Smoking Status/Tobacco Use Comment F acnelia September 28, 2021 09:30 AM [place] NEVER US[place] [facility] Nov 10, 2020 08:30 AM [place] US[place] [facility] Pathology Reports: +/- 30 days [...] COSIGNER: URGENCY: STATUS: COMPLETED $APHDR Reporting Lab: [facility] [CLIA# [id number]] [place] [address] - - - - - - - [...] - PATHOLOGY REPORT Accession No. [id number] - - - - - - [...] - PATHOLOGY REPORT Accession No. [id number] - - - - - - [...] 6 o'clock tip, en face. CE. (D) [facility] MICROSCOPIC DESCRIPTION: Microscopic examination performed. CI. 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 STAFF PATHOLOGIST Signed May 20, 2023@11:08 Performing Laboratory: Surgical Pathology Report Performed By: [facility] [CLIA# [id number]] [place] [address] $FTR - - - - - - [...] - - ALICE MOBLEY STANDARD FORM 515 ID:[id number] SEX:F :1935 AGE: 88 LOC:[id number] PCP: Natalia Sales MD /baltazar/ BRIAN PARADA M.D. STAFF PATHOLOGIST Signed: 05/20/2023 11:08 BRIAN PARADA [facility] Encounter Notes: All associated encounter notes This section contains the clinical notes associated to the Encounter. 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 History of breast cancer, giant cell arteritis. Level of Care Coordination Complex/Chronic Care Coordination was determined from: Chart Review Facility Community Care Office Contact Care Coordination Point of Contact: Emmanuelle Gaxiola RN Services: Moderate Care Coordination Services Case Management, if appropriate Direct communications with interdisciplinary team Plan: proceed to scheduling HR-High risk consult, continue trying to schedule after mandated effort EEF-Extra scheduling effort: 1 additional call [facility] User Role: AMIRA /baltazar/ Katie Barahona RN lease administrator Bryologist Signed: 06/09/2023 07:20 06/10/2023 ADDENDUM STATUS: COMPLETED [place] left a voicemail for this lyric writer on 06/20/23 stating she had missed call regarding MRI consult for [facility]. [employer] Agent had not reached out to regarding MRI. It has been approved and is pending coordination by our [facility] staff. Called back today and left a voicemail message to return call if further questions. /es/ Emmanuelle GaxiolaRN,BSN Community Bryologist Signed: 06/10/2023 09:25 KATIE BARAHONA [facility]
--- OUTSIDE RECORDS SUMMARY | 2023-06-24 08:46 | XMS_ITS | Encounter Summary ---
Author Name [facility] Organization [facility] Address [address] [place] [address] Insurance Providers: All historical and current Section [...] Patient's Relationship to Policy [facility] ([id number]) PRESCRIPT ION GEHA May 30, 2005 [id number] [phone] SONIA MOBLEY PATIENT GEHA (SECONDARY ) PREFERRED PROVIDER ORGANIZAT ION (PPO) GEHA A/B PRIMA RY May 30, 2005 [id number] SONIA MOBLEY PATIENT GEHA (SECONDARY ) PREFERRED PROVIDER ORGANIZAT ION (PPO) GEHA A&B PRIMA RY May 30, 2005 [id number] [phone] SONIA MOBLEY PATIENT [facility] PREFERRED PROVIDER ORGANIZAT ION (PPO) DO NOT USE May 30, 2005 [id number] TONI BRITO PATIENT MEDICARE (WNR) MEDICARE (M) PART A Jan 29, 2000 PART A [id number] [phone] SONIA MOBLEY PATIENT MEDICARE (WNR) MEDICARE (M) PART B Jan 29, 2000 PART B [id number] [phone] SONIA MOBLEY PATIENT Selected Encounter This section includes the information on record at [place] for the Encounter. Date/Time Encounter Type Encounter Description Reason Pro vider Source Jun 10, 2023 01:56 PM Outpatient Encounter PRIMARY CARE/MEDICINE IHE Encounter Template Text not used by [place] Plan of Treatment: Future Appointments (+ 6 months) and Future Tests (+/- 45 days) The Plan of Treatment section includes future care activities for the patient from all [facility]. This section includes future appointments and future orders which are active, pending or scheduled. Future Appointments This section includes appointments that were scheduled to occur 6 months from the date of the Encounter, up to a maximum of 20 appointments. The data comes from all [facility]. Appointment Date/Time Appointment Type Appointme nt Facility Name Jun 28, 2023 10:40 AM AMBULATORY - SURGERY [facility] Aug 09, 2023 11:00 AM AMBULATORY - REHAB MEDICIN E [facility] Active, Pending, and Scheduled Orders This section includes a listing of several types of active, pending, and scheduled orders, including clinic medications orders, diagnostic test orders, procedure orders and consult orders; where the start date of the order is 45 days before the date of the Encounter or 45 days after the date of theEncounter. The data comes from all [facility]. Test Date/Time Test Type Test Details Facility Name Jun 07, 2023 03:06 PM Consult Order COMMUNITY CARE-MRI Cons Apartment House Manager's Choice [facility] Jun 09, 2023 01:13 PM Pharmacy - Clinic Medication Order [facility] Social History: Smoking Status (Most [...] 18, 2022 10:00 AM VA-TOBACCO NEVER USED [facility] Tobacco Use History This section includes a history of the smoking, or tobacco-related health factors, that were collected on or before the date of the Encounter. The data comes from the [place] facility where the Encounter took place. Date/Time Smoking Status/Tobacco Use Comment F acnelia September 28, 2021 09:30 AM [place]-TOBACCO NEVER USED [facility] Nov 10, 2020 08:30 AM VA-TOBACCO NEVER USED [facility] Pathology Reports: +/- 30 days [...] comes from all [place] treatment facilities. Date/Time Pathology Report Provider Source May 20, 2023 11:08 AM LR SURGICAL PATHOL OGY REPORT: LOCAL TITLE: LR SURGICAL PATHOLOGY REPORT STANDARD TITLE: PATHOLOGY REPORT DATE OF NOTE: MAY 20, 2023@11:08:01 ENTRY DATE: MAY 20, 2023@11:08:01 AUTHOR: BRIAN APRADA COSIGNER: URGENCY: STATUS: COMPLETED $APHDR Reporting Lab: [facility] [CLIA# [id number]] [place] [address] - - - - - - - [...] - PATHOLOGY REPORT Accession No. [id number] - - - - - - - [...] - PATHOLOGY REPORT Accession No. [id number] - - - - - - - [...] 6 o'clock tip, en face. CE. (D[facility] MICROSCOPIC DESCRIPTION: Microscopic examination performed. CI. DIAGNOSIS: Skin; left shoulder; excisional biopsy-- -no evidence of residual carcinoma -scar /es/ BRIAN PARADA M.D. STAFF PATHOLOGIST Signed May 20, 2023@11:08 Performing Laboratory: Surgical Pathology Report Performed By: [facility] [CLIA# [id number]] [place] [address] $FTR - - - - - - - - - - - - - - - - - - - - - - - - - - - - - - - - - - - - - - - - (End of report) BRIAN PARADA MD [facility] Date May 20, 2023 - - - - - - - - - - - - - - - - - - - - - - - - - - - - - - - - - - - - - - - - ALICE MOBLEY STANDARD FORM 515 ID:[id number] SEX:F :[id number] AGE: 88 LOC:[id number] PCP: Natalia Sales MD /baltazar/ BRIAN PARADA M.D. STAFF PATHOLOGIST Signed: 05/20/2023 11:08 BRIAN PARADA [facility] Encounter Notes: All associated encounter notes This section contains the clinical notes associated to the Encounter. Date/Time Encounter Note(s) Provider Source Jun 10, 2023 02:05 PM ADDENDUM: LOCAL TITLE: Addendum STANDARD TITLE: ADDENDUM DATE OF NOTE: JUN 10, 2023@14:05:47 ENTRY DATE: JUN 10, 2023@14:05:49 AUTHOR: WEI TREJO EXP COSIGNER: URGENCY: STATUS: COMPLETED I do not have concerns about her meds and the vaccine. /baltazar/ Natalia Sales MD STAFF PHYSICIAN Signed: 06/10/2023 14:06 Receipt Acknowledged By: 06/10/2023 14:20 /baltazar/ RIK Phillips Registered Nurse for MICKI JAIN === --- Original Document --- 06/10/23 APPOINTMENT SCHEDULING NOTE: Attempted to schedule Return to clinic (RTC) Contact attempt made to [facility] 1st attempt Telephone declines to schedule/reschedule, due to she will be getting the RSV vaccination on 07/07/2023 at the [place] where she resides. However, has concerns whether or not she should be getting this vaccination with the medication that she is taking. Thank you. If [facility] calls back, schedule appt for: Return to [facility] BODY BUILDER APPRENTICE IMMUNIZATIONS on or around ( Jun 16, 2023 ) for a total of 1 appointment(s) trixie /talat MAN ADVANCED MECHANICAL SERVICE SPECIALIST Signed: 06/10/2023 14:02 Receipt Acknowledged By: 06/10/2023 14:05 /baltazar/ Natalia Sales MD STAFF PHYSICIAN 06/10/2023 14:20 /baltazar/ TULIO PhillipsN Registered Nurse for NATALIA TAYLOR [facility] Jun 10, 2023 01:56 PM REPORT OF CONTACT: LOCAL TITLE: APPOINTMENT SCHEDULING NOTE STANDARD TITLE: REPORT OF CONTACT DATE OF NOTE: JUN 10, 2023@13:56 ENTRY DATE: JUN 10, 2023@13:56:44 AUTHOR: GRAHAM MAN EXP COSIGNER: URGENCY: STATUS: COMPLETED APPOINTMENT SCHEDULING NOTE Has ADDENDA Attempted to schedule Return to clinic (RTC) Contact attempt made to [facility] 1st attempt Telephone declines to schedule/reschedule, due to she will be getting the RSV vaccination on 07/07/2023 at the [place] where she resides. However, has concerns whether or not she should be getting this vaccination with the medication that she is taking. Thank you. If [facility] calls back, schedule appt for: Return to [facility] BODY BUILDER APPRENTICE IMMUNIZATIONS on or around ( Jun 16, 2023 ) for a total of 1 appointment(s) trixie /talat MAN ADVANCED MECHANICAL SERVICE SPECIALIST Signed: 06/10/2023 14:02 Receipt Acknowledged By: 06/10/2023 14:05 /baltazar/ Natalia Sales MD STAFF PHYSICIAN 06/10/2023 14:20 /baltazar/ RIK Phillips Registered Nurse for MARIN CRISTOBAL 06/10/2023 ADDENDUM STATUS: COMPLETED I do not have concerns about her meds and the vaccine. /baltazar/ Natalia Sales MD STAFF PHYSICIAN Signed: 06/10/2023 14:06 Receipt Acknowledged By: 06/10/2023 14:20 /baltazar/ Yuni Kenney, BSN Registered Nurse for MICKI JAIN [facility]
--- OUTSIDE RECORDS SUMMARY | 2023-06-24 08:47 | XMS_ITS | Encounter Summary ---
Author Name Unknown Organization [facility] Address [address] [place] [address] Care Team Providers Care Nursing Education Consultant Name Role Phone Unavailable Primary Care Provider Unavailabl e Encounter Details Date Type Department Care Team (Late st Contact Info) Description 10/29/2022 Orders Only Department of Ophthalmology in [place], [place] [address] [phone] Ole Viera Jr., M.D. [address] [phone] Social History Tobacco Use Types Packs/Day Years Used Date Smoking Tobacco: Never Smokeless Tobacco: Never Alcohol Use Standard Drinks/Week Comments Yes 0 (1 standard drink = 0.6 oz pur e alcohol) 1-2 drinks per week Nutrition Answer Date Recorded Nutrition: EVOO Fat Source Unknown 07/21 Nutrition: Servings of Fruits/Vegetables per Day Not on file 07/21/2020 Dental Answer Date Recorded Dental: Regular Dentist Unknown 07/21/19 21 Sex and Gender Information Value Date Recorded Sex Assigned at Not on file Gender Identity Female 03/01/2018 11:28 AM CDT Sexual Orientation Not on file documented as of this encounter Plan of Treatment Not on file documented as of this encounter Visit Diagnoses Not on filedocumented in this encounter Additional Health Concerns Assessment Noted Time PHQ-9 Depression Total Score: 0 09/24/19 15 3:20 PM CDT documented as of this encounter
--- OUTSIDE RECORDS SUMMARY | 2023-06-24 08:47 | XMS_ITS | Encounter Summary ---
Author Name Unknown Organization [facility] Address [address] [place] [address] Care Team Providers Care Leather Currier Name Role Phone Unavailable Primary Care Provider Unavailabl e Encounter Details Date Type Department Care Team (Late st Contact Info) Description 10/31/2015 Historical Ophthalmology [facility] Ole Viera Jr., M.D. [address] [place] [phone] Social History Tobacco Use Types Packs/Day Years Used Date Smoking Tobacco: Never Assessed Sex and Gender Information Value Date Recorded Sex Assigned at Not on file Gender Identity Female 03/01/2018 11:28 AM CDT Sexual Orientation Not on file documented as of this encounter Progress Notes * Ole Viera M.D. - 10/31/2015 10:11 AM CDT Eye General CHIEF COMPLAINT CE HISTORY OF PRESENT ILLNESS Left eye has been ithcy with some clear discharge, intermittent. Also occastional floaters in left eye. 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
--- OUTSIDE RECORDS SUMMARY | 2023-06-24 08:47 | XMS_ITS ---
Author Name Unknown Organization [facility] Address [address] [place] [address] Care Team Providers Care Upper Cutter Machine Name Role Phone Unavailable Unavailable Unavailable Surgery Details Not on file Complications Check Surgery Details section. Procedure Estimated Blood Loss Check Surgery Details section. Procedure Findings Check Surgery Details section. Procedure Specimens Taken Check Surgery Details section.
--- OUTSIDE RECORDS SUMMARY | 2023-06-24 08:47 | XMS_ITS | Encounter Summary ---
Author Name Unknown Organization [facility] Address [address] [place] [address] Care Team Providers Care Log Operations Coordinator Name Role Phone Unavailable Primary Care Provider Unavailabl e Reason for Visit * Reason Comments Med Refill Encounter Details Date Type Department Care Team (Late st Contact Info) Description 10/29/2022 Refill Department of Ophthalmology in [place], [place] [address] [phone] Ole Viera Jr., M.D. [address] [phone] Med Refill Social History Tobacco Use Types Packs/Day Years [...]
--- OUTSIDE RECORDS SUMMARY | 2023-06-24 08:47 | XMS_ITS | Encounter Summary ---
Author Name Unknown Organization [facility] Address [address] [place] [address] Care Team Providers Care Ophthalmic Medical Technician Name Role Phone Unavailable Primary Care Provider Unavailabl e Encounter Details Date Type Department Care Team (Late st Contact Info) Description 11/08/2016 Historical Ophthalmology [facility] Ole Viera Jr., M.D. [address] [phone] Social History Tobacco Use Types Packs/Day Years Used Date Smoking Tobacco: Never Sex and Gender Information Value Date Recorded Sex Assigned at Not on file Gender Identity Female 03/01/2018 11:28 AM CDT Sexual Orientation Not on file documented as of this encounter Progress Notes * Ole Viera M.D. - 11/08/2016 1:18 PM CDT Eye General CHIEF COMPLAINT Complete Exam HISTORY OF PRESENT ILLNESS No problems noted. 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
--- OUTSIDE RECORDS SUMMARY | 2023-06-24 08:47 | XMS_ITS | Referral Summary ---
Author Name Unknown Organization [facility] Address [address] [place] [address] Care Team Providers Care Operator Technician Name Role Phone Unavailable Primary Care Provider Unavailabl e Source Comments Patient records contain information from all sites at [facility]. For routine questions regarding patient records, call [phone] during business hours, M-F 8:00 AM - 5:00 PM Central Time. Record requests for emergency care only can be directed to [phone] at any time.[facility] Allergies No known active allergies Medications Medication Sig Dispensed Refills Start Date End Date Status anastrozole (ARIMIDEX) 1 mg tablet Take 1 tablet by mouth daily. 0 10/31/2015 Active ADULT LOW DOSE ASPIRIN ORAL Take 1 tablet by mouth daily. 81 mg 0 10/18/2008 Active calcium carbonate-vitamin D2 600-125 mg-unit tablet Take by mouth daily. 500 mg taken infrequently 0 10/24/2013 Active calcium citrate/vitamin D3 (CITRACAL REGULAR ORAL) Take 1 tablet by mouth daily. 0 10/22/2015 Active hydroCHLOROthiazid e (HYDRODIURIL) 12.5 mg tablet Take by mouth daily. 0 10/22/2015 Active omeprazole (PriLOSEC) 20 mg capsule Take 1 capsule by mouth every other day. 0 01/30/2014 Active atorvastatin (LIPITOR) 80 mg tablet Take 1 tablet by mouth daily. 0 03/02/2017 Active alendronate (FOSAMAX) 35 mg tablet 0 12/16/2017 Active olopatadine (PATANOL) 0.1 % ophthalmic solution INSTILL 1 DROP INTO BOTH EYES TWICE A DAY 5 mL 5 10/31/2019 Active Additional Information Patient taking differently: both eyes Daily PRN, Reported on 09/22/2022 metoprolol succinate (TOPROL-XL) 25 mg 24 hr tablet Take 25 mg by mouth daily. 0 07/08/2020 Active omeprazole (PriLOSEC OTC) 20 mg EC tablet Take 20 mg by mouth daily as needed. 0 Active ergocalciferol (Vitamin D2) 50,000 Unit capsule Take 50,000 Units by mouth daily. 0 Active lisinopriL (PRINIVIL,ZESTRIL) 20 mg tablet TAKE 1 TABLET BY MOUTH EVERY DAY 90 tablet 3 03/23/2021 Active neomycin-polymyxin -dexamethasone (MAXITROL) 3.5mg/mL-10,000 unit/mL-0.1 % ophthalmic suspension Administer 1 drop into the left eye 4 (four) times a day. 5 mL 1 10/29/2022 Active ketotifen (ZADITOR) 0.025 % (0.035 %) ophthalmic solution Administer 1 drop into both eyes 2 (two) times a day. 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 Overview: Atherosclerosis Extremity w Claudication Coronary Artery Disease Lummi Vessel 11/30/2007 Hypertension Essential Primary 03/08/2003 Resolved Problems Problem Noted Date Diagnosed Date Resolved Date Hypertension Essential Primary 01/03/2006 08/04/2020 Overview: Hypertension Labile Immunizations Name Administration Dates Next Due H1N1 All Forms 05/13/2009 HZV (ZOSTAVAX) 08/02/2009 Influenza, Seasonal, Injectable 04/02/2002,03/23 Influenza, Unspecified 03/21/2017,03/05/2015,09/2007 PCV13 03/07/2015 Pneumococcal, Unspecified 07/02/2009 SARS-COV-2 (COVID-19) - MODERNA 06/26/2020 Td (Adult), adsorbed 05/13/2009 Tdap 12/11/2014 Social History Tobacco Use Types Packs/Day Years [...] AM CDT Sexual Orientation Not on file Last Filed Vital Signs Vital Sign Reading Time Taken Comments Blood Pressure 151/57 08/04/2020 9:20 AM DIRECT MARKETING REPRESENTATIVE Pulse 60 08/04/2020 9:05 AM DIRECT MARKETING REPRESENTATIVE Temperature 36.5 ??C (97.7 ??F) 02/28/2019 9:34 AM CD T Respiratory Rate 16 02/15/2018 9:14 AM CDT Oxygen Saturation 98% 08/04/2020 9:05 AM DIRECT MARKETING REPRESENTATIVE Inhaled Oxygen Concentration - - Weight 72.7 kg (160 lb 4.4 oz) 08/04/2020 9:05 A M DIRECT MARKETING REPRESENTATIVE Height 160 cm (5' 2.99) 02/28/2019 9:34 AM CDT Body Mass Index 28.4 02/28/2019 9:34 AM CDT Plan of Treatment Not on file Medical Devices Implanted Type Area Shiftman Device Identifier Shelf Expiration Date Model / Serial / Lot Protege Everflex 7 X 80 X 120 - [id number] [id number] Implanted:Qty: 1 on 06/27/2008 Vascular Stent ev3 Description:Device Manufactu rer - EV3. Device Status Text - [id number]. Advance Directives For more information, please contact: [phone] Documents on File Type Date Recorded Patient Skein Inspector Expl anation Advance Directives 06/27/2008 12:00 AM Leg acy document. See document viewer.
--- OUTSIDE RECORDS SUMMARY | 2023-06-24 08:47 | XMS_ITS | Encounter Summary ---
Author Name Unknown Organization [facility] Address [address] [place] [address] Care Team Providers Care Medical Billing Instructor Name Role Phone Unavailable Primary Care Provider Unavailabl e Reason for Referral * Outpatient (Routine) - Closed Specialty Diagnoses / Procedures Referred By Lucy geronimo Referred To Contact Ophthalmology Ole Viera Jr., M.D. [address] [place] [phone] [facility] Referral ID Status Reason Start Date Expiration Date Visits Re quested Visits Authorized [id number] Closed 09/22/2022 09/21/2025 1 1 Reason for Visit * Reason Comments Eye Twitching * Appointment Request (Routine) - Closed Specialty Diagnoses / Procedures Referred By Lucy geronimo Referred To Contact Ophthalmology Referral ID Status Reason Start Date Expiration Date Visits Re quested Visits Authorized [id number] Closed 09/16/2022 09/16/2023 1 1 Encounter Details Date Type Department Care Team (Latest Contact Info) Description 09/22/2022 2:30 PM CDT Office Visit Department of Ophthalmology in [place], [place] [address] [place] [phone] Ole Viera Jr., M.D. [address], [place] [phone] Conjunctivitis Acute Left (Primary Dx) Social History Tobacco Use Types Packs/Day Years [...] this encounter Progress Notes * Ole Viera Jr., M.D. - 09/22/2022 2:30 PM CDT Yariel BestRahul Gutierres was seen today for Eye Twitching #1 Conjunctivitis Acute Left #1 Maxitrol/4 left eye Refraction on return. documented in this encounter Plan of Treatment Scheduled Referrals Name Type Priority Associated Diagnoses Order Schedule Ophthalmology office visit (clinic) Outpatient Referral Routine Expected: 10/06/2022 (Approximate), Expires: 12/23/2023 documented as of this encounter Visit Diagnoses Diagnosis Conjunctivitis Acute Left- Primary documented in this encounter Additional Health Concerns Assessment Noted Time PHQ-9 Depression Total Score: 0 09/24/19 15 3:20 PM CDT documented as of this encounter
--- OUTSIDE RECORDS SUMMARY | 2023-06-24 08:47 | XMS_ITS | Encounter Summary ---
Author Name Unknown Organization [facility] Address [address] [place] [address] Care Team Providers Care Remotely Operated Vehicle Name Role Phone Unavailable Primary Care Provider Unavailabl e Reason for Referral * Outpatient (Routine) - Authorized Specialty Diagnoses / Procedures Referred By Lucy geronimo Referred To Contact Ophthalmology Ole Viera Jr., M.D. [address] [place] [phone] [facility] Referral ID Status Reason Start Date Expiration Date V isits Requested Visits Authorized [id number] Authorized 10/12/2022 10/11/2025 1 1 Reason for Visit * Reason Comments Follow-up * Outpatient (Routine) - Closed Specialty Diagnoses / Procedures Referred By Lucy geronimo Referred To Contact Ophthalmology Ole Viera Jr., M.D. [address] [place] [phone] [facility] Region Referral ID Status Reason Start Date Expiration Date Visits Re quested Visits Authorized [id number] Closed 09/22/2022 09/21/2025 1 1 Encounter Details Date Type Department Care Team (Latest Contact Info) Description 10/12/2022 9:30 AM CDT Office Visit Department of Ophthalmology in [address] [phone] Ole Viera Jr., M.D. [address] [phone] Blepharitis Right (Primary Dx); Blepharitis Left; Intraocular Lens Implant Status Post Social History Tobacco Use Types Packs/Day Years [...] Notes * Ole Viera Jr., M.D. - 10/12/2022 9:30 AM CDT Eunicemaria g Lucas Gutierres was seen today for Follow-up #1 Blepharitis Right #2 Blepharitis Left #3 Intraocular Lens Implant Status Post #1 Mild, lid scrubs Continue Zaditor/2 ou #3 Stable RTO 1 year documented in this encounter Plan of Treatment Scheduled Referrals Name Type Priority Associated Diagnoses Order Schedule Ophthalmology office visit (clinic) Outpatient Referral Routine Expected: 10/13/2023 (Approximate), Expires: 01/13/2024 documented as of this encounter Visit Diagnoses Diagnosis Blepharitis Right- Primary Blepharitis Left Intraocular Lens Implant Status Post documented in this encounter Additional Health Concerns Assessment Noted Time PHQ-9 Depression Total Score: 0 09/24/19 15 3:20 PM CDT documented as of this encounter
--- NOTE | 2023-06-24 09:15 | CRLHL7_ITS ---
For Patients: As a result of the Century Cures Act, medical imaging exams and procedure reports are released immediately into your electronic medical record. You may view this report before your referring provider. If you have questions, please contact your health care provider. INDICATION: Eval for lesion/dolichoectasia TECHNIQUE: Brain MRI with contrast. Trigeminal protocol. The following sequences were obtained: DWI and ADC mapping sequences. Sagittal T1 weighted sequence. Axial FLAIR and JAQUELINE T2 weighted sequences of the whole brain. 3D T2-weighted CISS sequence of the skullbase. Thin section T1 weighted axial and coronal pre-contrast and post-contrast sequences of the skullbase. 3D T1 weighted post-contrast sequence of the whole brain. Gadolinium based contrast agent was used. COMPARISON: None. FINDINGS: There is no mass, abnormal enhancement or other focal lesion along the expected courses of the trigeminal nerves on either side. Specifically, the pepper, the preganglionic cisternal portions of the trigeminal nerves, the semilunar ganglia, Meckel`s caves, cavernous sinuses, superior and inferior orbital fissures, foramina rotunda and ovale are normal in appearance. No abnormality is demonstrated in the orbits, rheostat assembler spaces, maxilla or mandible. No evidence of vascular loop impingement at the cisternal trigeminal nerve root entry zone on either side. The other posterior fossa structures are also normal in appearance on thin-section high-resolution imaging. No evidence of acute infarction. No evidence of acute or chronic intracranial blood products. [place] FLAIR hyperintense lesion along the anterior falx which measures 5 x 11 millimeters in axial plane. Variable superimposed enhancement. [place]y FLAIR hyperintensities within the supratentorial white matter, typical for chronic microvascular ischemic change. Moderate generalized parenchymal volume loss with more advanced atrophy of the hippocampal formations. No hydrocephalus or extra-axial collections. The pituitary gland, parasellar structures and optic chiasm are normal. All the major intracranial vascular structures demonstrate normal flow-related signal. The orbital contents are normal. No calvarial or skull base marrow signal abnormality. No obstructive sinus disease. Scattered fluid signal bilateral mastoid air cells. No extracranial soft tissue findings. IMPRESSION: 1. No abnormality along the expected courses of the trigeminal nerves on either side, including their nuclei, intracranial segments, and skullbase foramina. No abnormalities of the visualized facial regions. No evidence of vascular loop impingement at the cisternal trigeminal nerve root entry zones. 2. No acute ischemia. 3. No mass or pathologic enhancement. 4. 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 5. Mild chronic microvascular ischemic changes. 6. Moderate generalized parenchymal volume loss with more advanced atrophy of the hippocampal formations. Dictated by Ian Morley MD @ 06/24/2023 1:45:55 PM (Electronically Signed)
== END 2023-06-24 08:34 | disposition home or self-care (01) ==
LOC: MRI 08:36
PROVIDERS: PCP Chiropractor; Visit Provider Chiropractor
DX: G51.32 Clonic hemifacial spasm, left (principal); I67.82 Cerebral ischemia; Z01.89 Encounter for other specified special examinations
CPT/HCPCS: 70553; A9575

== ENCOUNTER 2023-06-25 20:34 | Outpatient (CLI) | payer MEDICARE, OTHER, SELFPAY ==
--- OUTSIDE RECORDS SUMMARY | 2023-07-01 10:36 | XMS_ITS | Continuity of Care Document ---
Author Name [facility] Organization [facility] Care Team Providers Care Funder Name Role Phone [facility] Unavailable Unavailable Problems Combined list of problems from Department of Defense and Veterans Affairs facilities. It does not include entries that were removed or entered in error. 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 ([facility] [id number]) Active Condition Mar 26, 2021 Entered By: DOMINIC TREJO Comment: L breast, 1.2 cm, 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; ER/AZ pos, HER2 neg.Mar 26, 2021 Entered By: DOMINIC TREJO Comment: pT1c, N0, M0-Stage 1AMar 26, 2021 Entered By: DOMINIC TREJO Comment: s/p lumpectomy 06/2014, radiation therapyMar 26, 2021 Entered By: DOMINIC TREJO Comment: On Anastrazole since 07/2014 [facility] Giant cell arteritis Active Condition Mar 16, 2021 Entered By: DOMINIC TREJO Comment: 2011 [facility] 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 [place] [facility] History of cholecystectomy Active Condition [place] [facility] History of total knee arthroplasty Active Condition Mar 26 21 Entered By: DOMINIC TREJO Comment: R knee [facility] Osteopenia Active Condition Mar 26 Entered By: DOMINIC TREJO Comment: R humerus fracture 2015; T score at L femoral neck -1.3 2020 Entered By: DOMINIC TREJO Comment: Started aledronate (35mg weekly) 03/2017 [facility] Peripheral vascular disease Active Condition Nov 17, 2020 Entered By: DOMINIC TREJO Comment: s/p stenting Femoral artery, 2008 [facility] Polymyalgia rheumatica Active Condition [facility] Prediabetes ([facility] [id number]) Active Condition [facility] Sleep Apnea ([facility] [id number]) Active Condition [facility] Thoracic aortic aneurysm without rupture Active Condition [facility] Diagnosis: ICD-10-CM D48.5 Neoplasm of uncertain behavior of skin Active Diagnosis [facility] Diagnosis: ICD-10-CM Z71.9 Counseling, unspecified Active Diagnosis [facility] Diagnosis: ICD-10-CM Z48.02 Encounter for removal of sutures [facility] Diagnosis: ICD-10-CM 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, inc shoulder Active Diagnosis [facility] Diagnosis: ICD-10-CM G51.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, left Active Diagnosis [facility] Diagnosis: ICD-10-CM L98.9 Disorder of the skin and subcutaneous tissue, unspecified Active Diagnosis [facility] Diagnosis: ICD-10-CM C44.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 Active Diagnosis [facility] Diagnosis: ICD-10-CM 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 Diagnosis [facility] Diagnosis: ICD-10-CM M25.572 Pain in left ankle and joints of left foot Active Diagnosis [facility] Diagnosis: ICD-10-CM M25.571 Pain in right ankle and joints of right foot Active Diagnosis [facility] Diagnosis: ICD-10-CM L82.1 Other seborrheic keratosis Active Diagnosis [facility] Diagnosis: ICD-10-CM I47.1 Supraventricular tachycardia Active Diagnosis [facility] Diagnosis: ICD-10-CM I49.8 Other specified cardiac arrhythmias Active Diagnosis [facility] Diagnosis: ICD-10-CM Z23 Encounter for immunization Active Diagnosis [facility] Diagnosis: ICD-10-CM I10 Essential (primary) hypertension Active Diagnosis [facility] Diagnosis: ICD-10-CM I73.9 Peripheral vascular disease, unspecified Active Diagnosis [facility] Diagnosis: ICD-10-CM C50.919 Malignant neoplasm of unsp site of unspecified female breast Active Diagnosis [facility] Diagnosis: ICD-10-CM Z00.00 Encntr for general adult medical exam w/o abnormal findings Active Diagnosis [facility] Diagnosis: ICD-10-CM R60.9 Edema, unspecified Active Diagnosis [facility] Diagnosis: ICD-10-CM M62.81 Muscle weakness (generalized) Active Diagnosis [facility] Medications Combined list of outpatient medications from [...] FOR BLOOD PRESSURE ORALLY DISCONT INUED 08/11/2023 [id number] DOMINIC TREJO 2022 [facility] AMLODIPINE BESYLATE 2.5MG TAB TAKE ONE TABLET BY MOUTH EVERY DAY FOR BLOOD PRESSURE ORALLY DISCONT INUED (EDIT) 04/20/2023 [id number] 3 MIC LUCAS 2021 [facility] AMLODIPINE BESYLATE 5MG TAB TAKE ONE TABLET BY MOUTH EVERY DAY FOR BLOOD PRESSURE ORALLY DISCONT INUED 01/25/2024 [id number] 3 VIORQUIDEA Hubbard 2022 [facility] ANASTROZOLE 1MG TAB TAKE ONE TABLET BY MOUTH EVERY DAY FOR BREAST CANCER ORALLY DISCONT INUED 02/11/2024 [id number] 3 VI,ORQUIDEA Gonzalez 2022 [facility] ANASTROZOLE 1MG TAB TAKE ONE TABLET BY MOUTH EVERY DAY FOR BREAST CANCER ORALLY DISCONT INUED (EDIT) 08/11/2023 [id number] 3 DOMINIC TREJO 2022 [facility] ANASTROZOLE 1MG TAB TAKE ONE TABLET BY MOUTH EVERY DAY ORALLY DISCONT INUED (EDIT) 03/17/2023 [id number] 3 DOMINIC TREJO 2022 [facility] ASPIRIN 81MG TAB,CHEWABL E CHEW ONE TABLET BY MOUTH EVERY DAY ORALLY ACTIVE 03/15/2024 [id number] DOMINIC TREJO 2022 [place] [facility] ASPIRIN 81MG TAB,CHEWABL E CHEW ONE TABLET BY MOUTH EVERY DAY ORALLY DISCONT INUED 03/17/2023 [id number] DOMINIC TREJO 2022 [place] [facility] ATORVASTATI N CA 80MG TAB TAKE ONE TABLET BY MOUTH EVERY DAY FOR CHOLESTE ROL ORALLY ACTIVE 02/11/2024 [id number] 3 VIORQUIDEA Kailash Gonzalez 2022 [place] [facility] ATORVASTATI N CA 80MG TAB TAKE ONE TABLET BY MOUTH EVERY DAY FOR CHOLESTE ROL ORALLY DISCONT INUED (EDIT) 08/11/2023 [id number] 3 DOMINIC TREJO 2022 [facility] CALCIUM 250MG/VITAM IN D 125UNT TAB TAKE 2 TABLETS BY MOUTH EVERY DAY ORALLY ACTIVE 03/15/2024 [id number] 3 DOMINIC TREJO 2022 [facility] CALCIUM 250MG/VITAM IN D 125UNT TAB TAKE 2 TABLETS BY MOUTH EVERY DAY ORALLY DISCONT INUED 03/17/2023 [id number] 3 DOMINIC TREJO 2022 [facility] CHOLECALCIF GAURAV 25MCG (1,000UNIT) TAB TAKE TWO TABLETS BY MOUTH EVERY DAY ORALLY 03/17/2023 [id number] DOMINIC TREJO 2021 [facility] HYDROCHLORO THIAZIDE 12.5MG TAB TAKE ONE TABLET BY MOUTH EVERY DAY FOR BLOOD PRESSURE ORALLY DISCONT INUED (EDIT) 08/11/2023 [id number] DOMINIC TREJO 2022 [facility] HYDROCHLORO THIAZIDE 25MG TAB TAKE ONE TABLET BY MOUTH EVERY DAY FOR BLOOD PRESSURE ORALLY ACTIVE 02/11/2024 [id number] 3 VI,ORQUIDEA Gonzalez 2022 [place] [facility] HYDROCHLORO THIAZIDE 25MG TAB TAKE ONE-HALF TABLET BY MOUTH EVERY DAY ORALLY DISCONT INUED (EDIT) 03/17/2023 [id number] 3 DOMINIC TREJO 2022 [place] [facility] LISINOPRIL 40MG TAB TAKE ONE TABLET BY MOUTH EVERY DAY FOR BLOOD PRESSURE ORALLY ACTIVE 02/11/2024 [id number] 3 VI,ORQUIDEA Gonzalez 2022 [place] [facility] LISINOPRIL 40MG TAB TAKE ONE TABLET BY MOUTH EVERY DAY FOR BLOOD PRESSURE ORALLY DISCONT INUED (EDIT) 08/11/2023 [id number] DOMINIC TREJO 2022 [place] [facility] LISINOPRIL 40MG TAB TAKE ONE TABLET BY MOUTH EVERY DAY FOR BLOOD PRESSURE ORALLY DISCONT INUED (EDIT) 05/18/2023 [id number] 3 MIC LUCAS 2021 [place] [facility] METOPROLOL SUCCINATE 50MG TAB,SA TAKE ONE TABLET BY MOUTH AT BEDTIME FOR BLOOD PRESSURE ORALLY ACTIVE 02/11/2024 [id number] 3 VI,ORQUIDEA Gonzalez 2022 [place] [facility] METOPROLOL SUCCINATE 50MG TAB,SA TAKE ONE TABLET BY MOUTH AT BEDTIME FOR BLOOD PRESSURE ORALLY DISCONT INUED (EDIT) 08/11/2023 [id number] 3 DOMINIC TREJO 2022 [place] [facility] METOPROLOL SUCCINATE 50MG TAB,SA TAKE ONE TABLET BY MOUTH AT BEDTIME ORALLY DISCONT INUED (EDIT) 06/30/2023 [id number] 3 DOMINIC TREJO 2022 [place] [facility] METOPROLOL SUCCINATE 50MG TAB,SA TAKE ONE-HALF TABLET BY MOUTH AT BEDTIME ORALLY DISCONT INUED (EDIT) 03/17/2023 [id number] DOMINIC TREJO 2022 [facility] NITROFURANT OIN MONOHYDRATE /MACROCRYST ALLINE 100MG CAP,SA TAKE ONE CAPSULE BY MOUTH EVERY DAY DIRECTED TO PREVENT URINARY TRACT INFECTIO N AFTER SWIMMING ORALLY DISCONT INUED 10/12/2023 [id number] 3 PATRICIA APPIAHDOMINIC DOWNING 2022 [facility] OLOPATADINE HCL 0.1% SOLN,OPH INSTILL 1 DROP IN BOTH EYES TWICE A DAY BOTH EYES ACTIVE 03/15/2024 [id number] 3 PATRICIA ELYDOMINIC 2022 [facility] OLOPATADINE HCL 0.1% SOLN,OPH INSTILL 1 DROP IN BOTH EYES TWICE A DAY BOTH EYES DISCONT INUED 03/17/2023 [id number] GOMEZ DOMINIC ELY 2022 [facility] OMEPRAZOLE 20MG CAP,EC TAKE ONE CAPSULE BY MOUTH TWICE A WEEK ON AN EMPTY STOMACH, AT LEAST 30 MINUTES PRIOR TO A MEAL ORALLY ACTIVE 03/15/2024 [id number] 3 PATRICIA ELYDOMINIC 2022 [facility] OMEPRAZOLE 20MG CAP,EC TAKE ONE CAPSULE BY MOUTH TWICE A WEEK ON AN EMPTY STOMACH, AT LEAST 30 MINUTES PRIOR TO A MEAL ORALLY DISCONT INUED 03/17/2023 [id number] GOMEZ DOMINIC ELY 2022 [facility] Immunizations Combined list of available immunizations from the Department of Defense and Veterans Affairs facilities. Immunization Series Date Given Administered By Site Reaction Lot Number CVX Code Drug Email Designer Status Comments Source INFLUENZA VACCINE, QUADRIVALENT, ADJUVANTED 2022 205 complet ed [facility] COVID-19 (MODERNA), MRNA, LNP-S, PF, 50 MCG/0.5 ML (AGES 12+ YEARS) 2022 312 complet ed [facility] COVID-19 (PFIZER), MRNA, LNP-S, BIVALENT BOOSTER, PF, 30 MCG/0.3 ML DOSE 1 2022 TAMI QUIN[place]NA RIGHT DELTO ID [id number] 300 complet ed [facility] COVID-19 (MODERNA), MRNA, LNP-S, BIVALENT, PF, 50 MCG/0.5 ML OR 25MCG/0.25 ML DOSE 2021 229 complet ed [facility] INFLUENZA, UNSPECIFIED FORMULATION 2021 88 complet ed [facility] INFLUENZA, HIGH-DOSE, QUADRIVALENT 2021 197 complet ed [facility] COVID-19 (MODERNA), MRNA, LNP-S, PF, 100 MCG/0.5ML DOSE OR 50 MCG/0.25ML DOSE 2021 207 complet ed [facility] COVID-19 (MODERNA), MRNA, LNP-S, PF, 100 MCG/0.5ML DOSE OR 50 MCG/0.25ML DOSE 3 2020 207 complet ed [facility] INFLUENZA, HIGH-DOSE, QUADRIVALENT 2020 197 complet ed [facility] INFLUENZA, UNSPECIFIED FORMULATION 2020 88 complet ed [facility] COVID-19 (MODERNA), MRNA, LNP-S, PF, 100 MCG/0.5 ML DOSE 2 2020 207 complet ed [facility] COVID-19 (MODERNA), MRNA, LNP-S, PF, 100 MCG/0.5 ML DOSE 1 2020 207 complet ed [facility] INFLUENZA, INJECTABLE, QUADRIVALENT, PRESERVATIVE FREE 2019 150 complet ed [facility] INFLUENZA, UNSPECIFIED FORMULATION 2019 88 complet ed [facility] INFLUENZA, HIGH DOSE SEASONAL 2018 135 complet ed [facility] ZOSTER RECOMBINANT 2 2018 187 complet ed per [facility] ZOSTER RECOMBINANT 1 2018 187 complet ed per [facility] INFLUENZA, HIGH DOSE SEASONAL 2017 135 complet ed [facility] INFLUENZA, HIGH DOSE SEASONAL 2016 135 complet ed [facility] INFLUENZA, HIGH DOSE SEASONAL 2015 135 complet ed [facility] PNEUMOCOCCAL CONJUGATE PCV 13 2014 133 complet ed per [facility] INFLUENZA, UNSPECIFIED FORMULATION 2014 88 complet ed [facility] TDAP 2014 115 complet ed per [facility] INFLUENZA, SEASONAL, INJECTABLE 2010 141 complet ed [facility] INFLUENZA, SEASONAL, INJECTABLE, PRESERVATIVE FREE 2009 140 complet ed [facility] ZOSTER LIVE 2009 121 complet ed [facility] PNEUMOCOCCAL POLYSACCHARID E PPV23 2009 33 complet ed [facility] PNEUMOCOCCAL, UNSPECIFIED FORMULATION 2009 109 complet ed [facility] NOVEL INFLUENZA-H1N 1-09, ALL FORMULATIONS 2008 128 complet ed [facility] TD (ADULT), 2 LF TETANUS TOXOID, PRESERVATIVE FREE, ADSORBED 2008 09 complet ed [facility] INFLUENZA, UNSPECIFIED FORMULATION 2008 88 complet ed [facility] INFLUENZA, SEASONAL, INJECTABLE 2007 141 complet ed [facility] INFLUENZA, SEASONAL, INJECTABLE 2001 141 complet ed [facility] INFLUENZA, SEASONAL, INJECTABLE 2000 141 complet ed [facility] Results Combined list of recent chemistry, [...] Feb 10, 2023 09:08 AM Reporting Lab: [facility] [phone] Performing Lab: [facility] [address] [facility] BASIC METABOLIC PANEL+MG UREA NITROGEN [MASS/VOLUM E] IN SERUM OR PLASMA 9 7 - 20 03/15 Specimen Type: PLASMA No comment entered. Ordering Provider: MARIMAR LEBRON Report Released Date/Time: Feb 10, 2023 09:08 AM Reporting Lab: [facility] [address] Performing Lab: [facility] [address] [place] [facility] BASIC METABOLIC PANEL+MG GLUCOSE [MASS/VOLUM E] IN SERUM OR PLASMA 106 70 - 100 03/15 H Specimen Type: PLASMA No comment entered. Ordering Provider: MARIMAR LEBRON Report Released Date/Time: Feb 10, 2023 09:08 AM Reporting Lab: [facility] [address] Performing Lab: [facility] [address] [place] [facility] BASIC METABOLIC PANEL+MG SODIUM [MOLES/VOLU ME] IN SERUM OR PLASMA 138 136 - 145 03/15 Specimen Type: PLASMA No comment entered. Ordering Provider: MARIMAR LEBRON Report Released Date/Time: Feb 10, 2023 09:08 AM Reporting Lab: [facility] [address] Performing Lab: [facility] [address] [place] [facility] BASIC METABOLIC PANEL+MG POTASSIUM [MOLES/VOLU ME] IN SERUM OR PLASMA 3.4 3.5 - 5.1 03/15 L Specimen Type: PLASMA No comment entered. Ordering Provider: MARIMAR LEBRON Report Released Date/Time: Feb 10, 2023 09:08 AM Reporting Lab: [facility] [address] Performing Lab: [facility] [address] [place] [facility] BASIC METABOLIC PANEL+MG CHLORIDE [MOLES/VOLU ME] IN SERUM OR PLASMA 103 98 - 107 03/15 Specimen Type: PLASMA No comment entered. Ordering Provider: MARIMAR LEBRON Report Released Date/Time: Feb 10, 2023 09:08 AM Reporting Lab: [facility] [address] Performing Lab: [facility] [address] [place] [facility] BASIC METABOLIC PANEL+MG CARBON DIOXIDE, TOTAL [MOLES/VOLU ME] IN SERUM OR PLASMA 28 22 - 29 03/15 Specimen Type: PLASMA No comment entered. Ordering Provider: MARIMAR LEBRON Report Released Date/Time: Feb 10, 2023 09:08 AM Reporting Lab: [facility] [address] Performing Lab: [facility] [address] [place] [facility] BASIC METABOLIC PANEL+MG CALCIUM [MASS/VOLUM E] IN SERUM OR PLASMA 9.3 8.4 - 10.2 03/15 Specimen Type: PLASMA No comment entered. Ordering Provider: MARIMAR LEBRON Report Released Date/Time: Feb 10, 2023 09:08 AM Reporting Lab: [facility] [address] Performing Lab: [facility] [address] [place] [facility] BASIC METABOLIC PANEL+MG MAGNESIUM [MASS/VOLUM E] IN SERUM OR PLASMA 1.8 1.6 - 2.6 03/15 Specimen Type: PLASMA No comment entered. Ordering Provider: MARIMAR LEBRON Report Released Date/Time: Feb 10, 2023 09:08 AM Reporting Lab: [facility] [address] Performing Lab: [facility] [address] [place] [facility] BASIC METABOLIC PANEL+MG ANION GAP IN SERUM OR PLASMA 7 5 - 15 03/15 Specimen Type: PLASMA No comment entered. Ordering Provider: MARIMAR LEBRON Report Released Date/Time: Feb 10, 2023 09:08 AM Reporting Lab: [facility] [address] Performing Lab: [facility] [address] [place] [facility] BASIC METABOLIC PANEL+MG GLOMERULAR FILTRATION RATE/1.73 SQ M.PREDICTED [VOLUME RATE/AREA] IN SERUM, PLASMA OR BLOOD BY CREATININE- BASED FORMULA (CKD-EPI 2020) 86 60 03/15 Specimen Type: PLASMA No comment entered. Ordering Provider: MARIMAR LEBRON Report Released Date/Time: Feb 10, 2023 09:08 AM Reporting Lab: [facility] [address] Performing Lab: [facility] [address] [place] [facility] TSH W/REFLEX TO FREE T4 THYROTROPIN [UNITS/VOLU ME] IN SERUM OR PLASMA 0.61 0.35 - 4.94 03/15 Specimen Type: PLASMA No comment entered. Ordering Provider: HARRIS TREJO Report Released Date/Time: Mar 16, 2022 11:04 AM Reporting Lab: [facility] [address] Performing Lab: [facility] [address] [place] [facility] VIT D 25-OH,TOT AL 25-HYDROXYV ITAMIN D3 [MASS/VOLUM E] IN SERUM OR PLASMA 30 12 - 50 03/15 Specimen Type: SERUM No comment entered. Ordering Provider: HARRIS TREJO Report Released Date/Time: Mar 16, 2022 11:04 AM Reporting Lab: [facility] [address] Performing Lab: [facility] [address] [place] [facility] CBC LEUKOCYTES [#/VOLUME] IN BLOOD BY AUTOMATED COUNT 5.71 4.0 - 11.0 03/15 Specimen Type: BLOOD No comment entered. Ordering Provider: HARRIS TREJO Report Released Date/Time: Mar 16, 2022 11:04 AM Reporting Lab: [facility] [address] Performing Lab: [facility] [address] [place] [facility] CBC ERYTHROCYTE S [#/VOLUME] IN BLOOD BY AUTOMATED COUNT 4.77 4.0 - 5.4 03/15 Specimen Type: BLOOD No comment entered. Ordering Provider: HARRIS TREJO Report Released Date/Time: Mar 16, 2022 11:04 AM Reporting Lab: [facility] [address] Performing Lab: [facility] [address] [place] [facility] CBC HEMOGLOBIN [MASS/VOLUM E] IN BLOOD 14.2 11.5 - 16 03/15 Specimen Type: BLOOD No comment entered. Ordering Provider: HARRIS TREJO Report Released Date/Time: Mar 16, 2022 11:04 AM Reporting Lab: [facility] [address] Performing Lab: [facility] [address] [place] [facility] CBC HEMATOCRIT [VOLUME FRACTION] OF BLOOD BY AUTOMATED COUNT 40.8 34.5 - 48 03/15 Specimen Type: BLOOD No comment entered. Ordering Provider: HARRIS TREJO Report Released Date/Time: Mar 16, 2022 11:04 AM Reporting Lab: [facility] [address] Performing Lab: [facility] [address] [place] [facility] CBC MCV [ENTITIC VOLUME] BY AUTOMATED COUNT 85.5 80 - 100 03/15 Specimen Type: BLOOD No comment entered. Ordering Provider: HARRIS TREJO Report Released Date/Time: Mar 16, 2022 11:04 AM Reporting Lab: [facility] [address] Performing Lab: [facility] [address] [place] [facility] CBC MCH [ENTITIC MASS] BY AUTOMATED COUNT 29.8 27 - 33 03/15 Specimen Type: BLOOD No comment entered. Ordering Provider: HARRIS TREJO Report Released Date/Time: Mar 16, 2022 11:04 AM Reporting Lab: [facility] [address] Performing Lab: [facility] [address] [place] [facility] CBC MCHC [MASS/VOLUM E] BY AUTOMATED COUNT 34.8 32.0 - 37.5 03/15 Specimen Type: BLOOD No comment entered. Ordering Provider: HARRIS TREJO Report Released Date/Time: Mar 16, 2022 11:04 AM Reporting Lab: [facility] [address] Performing Lab: [facility] [address] [place] [facility] CBC PLATELETS [#/VOLUME] IN BLOOD BY AUTOMATED COUNT 187 150 - 400 03/15 Specimen Type: BLOOD No comment entered. Ordering Provider: HARRIS TREJO Report Released Date/Time: Mar 16, 2022 11:04 AM Reporting Lab: [facility] [address] Performing Lab: [facility] [address] [place] [facility] CBC PLATELET MEAN VOLUME [ENTITIC VOLUME] IN BLOOD BY AUTOMATED COUNT 9.3 7.4 - 10.4 03/15 Specimen Type: BLOOD No comment entered. Ordering Provider: HARRIS TREJO Report Released Date/Time: Mar 16, 2022 11:04 AM Reporting Lab: [facility] [address] Performing Lab: [facility] [address] [facility] CBC ERYTHROCYTE DISTRIBUTIO N WIDTH [RATIO] BY AUTOMATED COUNT 13.6 11.5 - 14.5 03/15 Specimen Type: BLOOD No comment entered. Ordering Provider: HARRIS TREJO Report Released Date/Time: Mar 16, 2022 11:04 AM Reporting Lab: [facility] [address] Performing Lab: [facility] [address] [place] [facility] HEMOGLOBI N A1C HEMOGLOBIN A1C/HEMOGLO BIN.TOTAL IN [...] Mar 16, 2022 11:04 AM Reporting Lab: [facility] [address] Performing Lab: [facility] [address] [place] [facility] BASIC METABOLIC PANEL+MG CREATININE [MASS/VOLUM E] IN SERUM OR PLASMA 0.6 0.5 - 1.0 06/29 Specimen Type: PLASMA No comment entered. Ordering Provider: HARRIS TREJO Report Released Date/Time: Jun 29, 2022 10:17 AM Reporting Lab: [facility] [address] Performing Lab: [facility] [address] [place] [facility] BASIC METABOLIC PANEL+MG UREA NITROGEN [MASS/VOLUM E] IN SERUM OR PLASMA 15 7 - 20 06/29 Specimen Type: PLASMA No comment entered. Ordering Provider: HARRIS TREJO Report Released Date/Time: Jun 29, 2022 10:17 AM Reporting Lab: [facility] [address] Performing Lab: [facility] [address] [place] [facility] BASIC METABOLIC PANEL+MG GLUCOSE [MASS/VOLUM E] IN SERUM OR PLASMA 94 70 - 100 06/29 Specimen Type: PLASMA No comment entered. Ordering Provider: HARRIS TREJO Report Released Date/Time: Jun 29, 2022 10:17 AM Reporting Lab: [facility] [address] Performing Lab: [facility] [address] [place] [facility] BASIC METABOLIC PANEL+MG SODIUM [MOLES/VOLU ME] IN SERUM OR PLASMA 141 136 - 145 06/29 Specimen Type: PLASMA No comment entered. Ordering Provider: HARRIS TREJO Report Released Date/Time: Jun 29, 2022 10:17 AM Reporting Lab: [facility] [address] Performing Lab: [facility] [address] [place] [facility] BASIC METABOLIC PANEL+MG POTASSIUM [MOLES/VOLU ME] IN SERUM OR PLASMA 3.9 3.5 - 5.1 06/29 Specimen Type: PLASMA No comment entered. Ordering Provider: HARRIS TREJO Report Released Date/Time: Jun 29, 2022 10:17 AM Reporting Lab: [facility] [address] Performing Lab: [facility] [address] [place] [facility] BASIC METABOLIC PANEL+MG CHLORIDE [MOLES/VOLU ME] IN SERUM OR PLASMA 108 98 - 107 06/29 H Specimen Type: PLASMA No comment entered. Ordering Provider: HARRIS TREJO Report Released Date/Time: Jun 29, 2022 10:17 AM Reporting Lab: [facility] [address] Performing Lab: [facility] [address] [place] [facility] BASIC METABOLIC PANEL+MG CARBON DIOXIDE, TOTAL [MOLES/VOLU ME] IN SERUM OR PLASMA 27 22 - 29 06/29 Specimen Type: PLASMA No comment entered. Ordering Provider: HARRIS TREJO Report Released Date/Time: Jun 29, 2022 10:17 AM Reporting Lab: [facility] [id number] Performing Lab: [facility] [id number] [place] [facility] BASIC METABOLIC PANEL+MG CALCIUM [MASS/VOLUM E] IN SERUM OR PLASMA 9.2 8.4 - 10.2 06/29 Specimen Type: PLASMA No comment entered. Ordering Provider: HARRIS TREJO Report Released Date/Time: Jun 29, 2022 10:17 AM Reporting Lab: [facility] [id number] Performing Lab: [facility] [facility] [address] [place] [facility] BASIC METABOLIC PANEL+MG MAGNESIUM [MASS/VOLUM E] IN SERUM OR PLASMA 1.9 1.6 - 2.6 06/29 Specimen Type: PLASMA No comment entered. Ordering Provider: HARRIS TREJO Report Released Date/Time: Jun 29, 2022 10:17 AM Reporting Lab: [facility] [id number] Performing Lab: [facility] [address] [place] [facility] BASIC METABOLIC PANEL+MG ANION GAP IN SERUM OR PLASMA 6 5 - 15 06/29 Specimen Type: PLASMA No comment entered. Ordering Provider: HARRIS TREJO Report Released Date/Time: Jun 29, 2022 10:17 AM Reporting Lab: [facility] [address] Performing Lab: [facility] [address] [place] [facility] BASIC METABOLIC PANEL+MG GLOMERULAR FILTRATION RATE/1.73 SQ M.PREDICTED [VOLUME RATE/AREA] IN SERUM, PLASMA OR BLOOD BY CREATININE- BASED FORMULA (CKD-EPI) 87 60 06/29 Specimen Type: PLASMA No comment entered. Ordering Provider: HARRIS TREJO Report Released Date/Time: Jun 29, 2022 10:17 AM Reporting Lab: [facility] [id number] Performing Lab: [facility] [address] [place] [facility] TSH W/REFLEX TO FREE T4 THYROTROPIN [UNITS/VOLU ME] IN SERUM OR PLASMA 0.62 0.35 - 4.94 06/29 Specimen Type: PLASMA No comment entered. Ordering Provider: AGUILAR AGUILLON Report Released Date/Time: Jun 29, 2022 11:24 AM Reporting Lab: [facility] [address] Performing Lab: [facility] [address] [facility] HEMOGLOBI N A1C HEMOGLOBIN A1C/HEMOGLO BIN.TOTAL IN [...] Mar 16, 2021 11:01 AM Reporting Lab: [facility] [address] Performing Lab: [facility] [address] [facility] Vital Signs Combined list of inpatient and outpatient Vital Signs from Department of Defense and Veterans Affairs, ranging from 12 months to all on record, depending upon the facility. Vital Sign Value Date Comments Source SYSTOLIC BLOOD PRESSURE 204 05/18/2023 09:15:00 [facility] DIASTOLIC BLOOD PRESSURE 72 05/18/2023 09:15:00 [facility] PULSE OXIMETRY 96% 05/18/2023 09:15:00 [facility] TEMPERATURE 97.3 05/18/2023 09:15:00 [facility] PULSE 57 05/18/2023 09:15:00 [facility] SYSTOLIC BLOOD PRESSURE 125 05/09/2023 15:00:09 [facility] DIASTOLIC BLOOD PRESSURE 70 05/09/2023 15:00:09 [facility] PULSE OXIMETRY 97% 05/09/2023 15:00:09 [facility] WE[facility] 162 05/09/2023 15:00:09 [facility] BMI 31kg/m2 05/09/2023 15:00:09 [facility] PAIN 0 05/09/2023 15:00:09 [facility] TEMPERATURE 98.2 05/09/2023 15:00:09 [facility] PULSE 67 05/09/2023 15:00:09 [facility] RESPIRATION 18 05/09/2023 15:00:09 [facility] SYSTOLIC BLOOD PRESSURE 124 03/15/2023 10:08:03 [facility] DIASTOLIC BLOOD PRESSURE 73 03/15/2023 10:08:03 [facility] PULSE OXIMETRY 96% 03/15/2023 10:08:03 M [...] HCS SYSTOLIC BLOOD PRESSURE 197 01/07/2023 10:04:08 [facility] DIASTOLIC BLOOD PRESSURE 96 01/07/2023 10:04:08 [facility] PULSE OXIMETRY 96% 01/07/2023 10:04:08 [facility] WEIGHT 162.1 01/07/2023 10:04:08 [facility] BMI 31kg/m2 01/07/2023 10:04:08 [facility] PAIN 2 01/07/2023 10:04:08 [facility] PULSE 77 01/07/2023 10:04:08 [facility] RESPIRATION 18 01/07/2023 10:04:08 RAD L[facility] Encounters Combined list of: 1) Encounters from Department of Veterans Affairs facilities going back up to thelast 18 months. 2) Encounters from the Department of Defense facilities going back up to 280 months. Location Location Details Encounter Type Encounter Number Reason For Visit Attending Provider ADM Date DC Date Status Disposition Source [facility] [place] [id number] Diagnos is: ICD-10- CM M62.81 Muscle weaknes s (genera lized)< br/> [place]IE[place] NAH 01/18 [facility] PROSTHETIC TRAING 1ST ENC [id number] Diagnos is: ICD-10- CM M62.81 Muscle weaknes s (genera lized)< br/> WIL BUSTAMANTE 01/18 [facility] Outpatient Encounter [id number] 02/21 [facility] [place] [facility] Outpatient Encounter [id number] 03/02 [facility] [place] [facility] Outpatient Encounter [id number] 03/02 [facility] ORTHC/PROS TC MGMT SBSQ ENC [id number] Diagnos is: ICD-10- CM R60.9 Edema, 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
WIL BUSTAMANTE DE G 03/16 [facility] Outpatient Encounter [id number] Diagnos is: ICD-10- CM Z00.00 Encntr for general adult medical exam w/o abnorma l finding s
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
[place] NAH 04/14 [facility] Outpatient Encounter [id number] ROLA VANEGAS CY L 04/15 [facility] HC PRO PHONE CALL 21-30 MIN [id number] Diagnos is: ICD-10- CM I10 Essenti al (primar y) hyperte nsion<b r/> MIC PLASCENCIA R 04/19 [facility] [place] [facility] HC PRO PHONE CALL 21-30 MIN [id number] Diagnos is: ICD-10- CM I10 Patricia al (primar y) hyperte nsion<b r/> MIC PLASCENCIA R 05/17 [facility] [place] [facility] Outpatient Encounter [id number] ROLA VANEGAS CY L 05/19 [place] [facility] [place] [facility] OFFICE O/P EST MOD 30-39 MIN [id number] Diagnos is: ICD-10- CM 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
Carlos TREJO 06/29 [facility] ADM SARSCV2 BVL 30MCG/.3ML B [id number] Diagnos is: ICD-10- CM Z23 Encount er for immuniz ation<b r/> CANDICE QUINTANA EY E 06/29 [facility] [place] [facility] Outpatient Encounter [id number] 07/01 [place] [facility] [place] [facility] Outpatient Encounter [id number] 07/12 [facility] [place] [facility] Outpatient Encounter [id number] 07/29 [place] [facility] [place] [facility] Outpatient Encounter [id number] 08/04 [place] [facility] [place] [facility] Outpatient Encounter [id number] 08/09 [facility] [place] [facility] ELECTROCAR DIOGRAM TRACING [id number] Diagnos is: ICD-10- CM I49.8 Other specifi ed cardiac arrhyth mias
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
MARGA HUBER RMA B 08/09 [facility] UNLISTED SPEC DERM SVC/PX [id number] Diagnos is: ICD-10- CM L98.9 Disorde r of the skin and subcuta neous tissue, 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
ANA MARÍA LOTT 08/09 [facility] Outpatient Encounter [id number] 08/10 [facility] Outpatient Encounter [id number] JULISSA ASHLEY SA 08/10 [facility] Outpatient Encounter [id number] Diagnos is: ICD-10- CM L82.1 Other seborrh eic keratos is
Kailash LEO OAH I 08/11 [facility] Outpatient Encounter [id number] 10/11 [facility] Outpatient Encounter [id number] DIPIKA RODRIGUES 10/15 [facility] OFFICE O/P EST LOW 20-29 MIN [id number] Diagnos is: ICD-10- CM M25.572 Pain in left ankle and joints of left foot
Carlos TREJO 10/18 [facility] ORTHC/PROS TC MGMT SBSQ ENC [id number] [id number] Diagnos is: ICD-10- CM M25.571 Pain in right ankle and joints of right foot
WIL BUSTAMANTE 10/18 [place] [facility] [place] [facility] OFF/OP EST MAY X REQ PHY/QHP [id number] Diagnos is: ICD-10- CM M25.572 Pain in left ankle and joints of left foot
ROLA VANEGAS MARTELL L 11/02 [place] [facility] [place] [facility] Outpatient Encounter [id number] 12/17 [place] [facility] [place] [facility] Outpatient Encounter [id number] 01/04 [place] [facility] [place] [facility] OFFICE O/P EST HI 40-54 MIN [id number] Diagnos is: ICD-10- CM G24.5 Blephar ospasm< br/> BRITANY RAMIREZ 01/07 [place] [facility] [place] [facility] Outpatient Encounter [id number] 01/10 [place] [facility] [place] [facility] Outpatient Encounter [id number] GILDARDO HERRON 01/12 [facility] [place] [facility] Outpatient Encounter [id number] 01/13 [place] [facility] [place] [facility] Outpatient Encounter [id number] Trini ELY 01/18 [place] [facility] [place] [facility] Outpatient Encounter [id number] 01/24 [place] [facility] [place] [facility] Outpatient Encounter [id number] MARKY PENDLETON 01/25 [place] [facility] [place] [facility] OFFICE O/P EST MOD 30-39 MIN [id number] Diagnos is: ICD-10- CM 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<b r/> SHANE MAYERS RA 03/17 [facility] Outpatient Encounter [id number] 03/17 [facility] Outpatient Encounter [id number] 03/26 [facility] [place] [facility] Outpatient Encounter [id number] 03/28 [facility] OFFICE O/P NEW LOW 30-44 MIN [id number] Diagnos is: ICD-10- CM 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
HOPE THORNE 05/03 [facility] OFF/OP EST MAY X REQ PHY/QHP [id number] Diagnos is: ICD-10- CM L98.9 Disorde r of the skin and subcuta neous tissue, 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
HOPE THORNE E 05/09 [facility] Outpatient Encounter [id number] 05/10 [facility] INTMD RPR S/A/T/EXT 2.6-7.5 [id number] Diagnos is: ICD-10- CM C44.629 Squamou s cell carcino ma skin/ left upper limb, inc shoulde r
DANI CALLAHAN 05/18 [facility] Outpatient Encounter [id number] 05/18 [facility] Outpatient Encounter [id number] CRISPIN PARADA RLOS A 05/20 [facility] OFF/OP EST MAY X REQ PHY/QHP [id number] Diagnos is: ICD-10- CM Z48.02 Encount er for removal of sutures
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
VANEGAS,TRA CY L 06/09 [facility] [place] [facility] Outpatient Encounter [id number] 06/10 [facility] [place] [facility] Outpatient Encounter [id number] 06/14 [facility] OFFICE O/P EST MOD 30 MIN [id number] Diagnos is: ICD-10- CM D48.5 Neoplas m of uncerta in behavio r of skin
FELIPA,N OAH I 06/28 [facility] [place] [facility] Outpatient Encounter [id number] HEMMINGSON ,RENATE P 06/29 [facility] Outpatient Encounter [id number] 06/30 [facility] Social History Combined list of available smoking, tobacco, and other social history from Department of Defense and Veterans Affairs facilities. Social History Type Response Date Comment [facility] e Tobacco smoking status NHIS [place]-TOBACCO NEVER USED [facility] History of tobacco use WA-TOBACCO NEVER USED 09/28/2021 [facility] History of tobacco use WA-TOBACCO NEVER USED 11/10/2020 [facility] Plan of Care List of future care activities from Department of Veterans Affairs facilities. Additional future care activities may be listed in the Assessment and Plan section. Date/Time Care Activity Care Activity Detail Facili ty 08/09/2023 AMBULATORY - REHAB MEDICINE AMBULATORY - REHAB MEDICINE [facility]
--- OUTSIDE RECORDS SUMMARY | 2023-07-01 10:40 | XMS_ITS | Encounter Summary ---
Author Name [facility] Organization [facility] Address [address] [place] [address] Insurance Providers: All historical and current Section [...] Patient's Relationship to Policy Talavera [facility] ([id number]) PRESCRIPT ION GEHA May 30, 2005 [id number] [phone] SONIA MOBLEY PATIENT GEHA (SECONDARY ) PREFERRED PROVIDER ORGANIZAT ION (PPO) GEHA A&B PRIMA RY May 30, 2005 [id number] [phone] SONIA MOBLEY PATIENT GEHA (SECONDARY ) PREFERRED PROVIDER ORGANIZAT ION (PPO) GEHA A/B PRIMA RY May 30, 2005 [id number] SONIA MOBLEY PATIENT [facility] PREFERRED PROVIDER ORGANIZAT ION (PPO) DO NOT USE May 30, 2005 [id number] TONI BRITO PATIENT MEDICARE (WNR) MEDICARE (M) PART A Jan 29, 2000 PART A [id number] [phone] SONIA MOBLEY PATIENT MEDICARE (WNR) MEDICARE (M) PART B Jan 29, 2000 PART B [id number] [phone] SONIA MOBLEY PATIENT Selected Encounter This section includes the information on record at [place] for the Encounter. Date/Time Encounter Type Encounter Description Reason Pro vider Source Jun 30, 2023 04:08 PM Outpatient Encounter COMP [facility] Encounter Template Text not used by [place] Plan of Treatment: Future Appointments (+ 6 months) and Future Tests (+/- 45 days) The Plan of Treatment section includes future care activities for the patient from [facility] [place] [facility] This section includes future [...] 11:00 AM AMBULATORY - REHAB MEDICIN E [facility] Sep 26, 2023 09:00 AM AMBULATORY - SURGERY [facility] Active, Pending, and Scheduled Orders [...] 03:06 PM Consult Order COMM[facility]ITY [facility]-MRI Cons Latex Ribbon Machine Operator's Choice [facility] Jun 09, 2023 01:13 PM Pharmacy - Clinic Medication Order [facility] Social History: Smoking Status [...] 18, 2022 10:00 AM VA-TOBACCO NEVER USED [facility] Tobacco Use History This section includes a history of the smoking, or tobacco-related health factors, that were collected on or before the date of the Encounter. The data comes from the [place] facility where the Encounter took place. Date/Time Smoking Status/Tobacco Use Comment F acnelia September 28, 2021 09:30 AM VA-TOBACCO NEVER USED [facility] Nov 10, 2020 08:30 AM VA-TOBACCO NEVER USED [facility] Encounter Notes: All associated encounter notes This section contains the clinical notes associated to the Encounter. Date/Time Encounter Note(s) Provider Source Jun 30, 2023 04:08 PM REPORT OF CONTACT: LOCAL TITLE: APPOINTMENT SCHEDULING NOTE STANDARD TITLE: REPORT OF CONTACT DATE OF NOTE: JUN 30, 2023@16:08 ENTRY DATE: JUN 30, 2023@16:08:49 AUTHOR: RINA VILCHIS EXP COSIGNER: URGENCY: STATUS: COMPLETED Attempted to schedule Return to clinic (RTC) Contact attempt made to [place] 1st attempt Telephone 2nd attempt Letter - Sent letter by regular [place] mail to address on file: ALICE MOBLEY [address] [place] [address] Disposition order request after Jun Left message on voice mail to call back to this number [phone] If calls back, schedule appt for: Return to [facility] on or around ( Jul 07, 2023 ) for a total of 1 appointment(s) med changes from recent outside ED visit /es/ RINA VILCHIS MSA [employer] Signed: 06/30/2023 16:09 RINA VILCHIS [facility]
--- OUTSIDE RECORDS SUMMARY | 2023-07-01 10:41 | XMS_ITS | Encounter Summary ---
Author Name Unknown Organization [facility] Address [address] [place] [address] Care Team Providers Care Slimer Name Role Phone Unavailable Primary Care Provider Unavailabl e Reason for Referral * Outpatient (Routine) - Authorized Specialty Diagnoses / Procedures Referred By Lucy geronimo Referred To Contact Ophthalmology Ole Viera Jr., M.D. [address] [place] [address] [facility] Referral ID Status Reason Start Date Expiration Date V isits Requested Visits Authorized [id number] Authorized 10/12/2022 10/11/2025 1 1 Reason for Visit * Reason Comments Follow-up * Outpatient (Routine) - Closed Specialty Diagnoses / Procedures Referred By Lucy geronimo Referred To Contact Ophthalmology Ole Viera Jr., M.D. [address] [place] [address] [facility] Region Referral ID Status Reason Start Date Expiration Date Visits Re quested Visits Authorized [id number] Closed 09/22/2022 09/21/2025 1 1 Encounter Details Date Type Department Care Team (Latest Contact Info) Description 10/12/2022 9:30 AM CDT Office Visit Department of Ophthalmology in [address] [phone] Ole Viera Jr., M.D. [address] [address] Blepharitis Right (Primary Dx); Blepharitis Left; Intraocular [...]
--- OUTSIDE RECORDS SUMMARY | 2023-07-01 10:41 | XMS_ITS | Encounter Summary ---
Author Name Unknown Organization [facility] Address [address] [place] [address] Care Team Providers Care Bench Hand Name Role Phone Unavailable Primary Care Provider Unavailabl e Reason for Referral * Outpatient (Routine) - Closed Specialty Diagnoses / Procedures Referred By Lucy geronimo Referred To Contact Ophthalmology Ole Viera Jr., M.D. [address] [place] [address] [facility] Referral ID Status Reason Start Date Expiration Date Visits Re quested Visits Authorized [id number] Closed 09/22/2022 09/21/2025 1 1 Reason for Visit * Reason Comments Eye Twitching * Appointment Request (Routine) - Closed Specialty Diagnoses / Procedures Referred By Lucy geronimo Referred To Contact Ophthalmology Referral ID Status Reason Start Date Expiration Date Visits Re quested Visits Authorized [id number] Closed 09/16/2022 09/16/2023 1 1 Encounter Details Date Type Department Care Team (Latest Contact Info) Description 09/22/2022 2:30 PM CDT Office Visit Department of Ophthalmology in [place], [place] [address] [place] [address] Ole Viera Jr., M.D. [address], [place] [address] Conjunctivitis Acute Left (Primary Dx) [...]
--- OUTSIDE RECORDS SUMMARY | 2023-07-01 10:41 | XMS_ITS | Encounter Summary ---
Author Name Unknown Organization [facility] Address [address] [place] [address] Care Team Providers Care Area Representative Name Role Phone Unavailable Primary Care Provider Unavailabl e Encounter Details Date Type Department Care Team (Late st Contact Info) Description 11/08/2016 Historical Ophthalmology [facility] Ole Viera Jr., M.D. [address] [phone] Social History Tobacco Use Types Packs/Day Years [...] VF OU CDM Reports - EYEGEN Id: [id number] Status: Fnl documented in this encounter Plan of Treatment Not on file documented as of this encounter Visit Diagnoses Not on filedocumented in this encounter Additional Health Concerns Assessment Noted Time PHQ-9 Depression Total Score: 0 09/24/19 15 3:20 PM CDT documented as of this encounter
--- OUTSIDE RECORDS SUMMARY | 2023-07-01 10:41 | XMS_ITS | Encounter Summary ---
Author Name Unknown Organization [facility] Address [address] [place] [address] Care Team Providers Care Mold Changer Name Role Phone Unavailable Primary Care Provider Unavailabl e Encounter Details Date Type Department Care Team (Late st Contact Info) Description 10/29/2022 Orders Only Department of Ophthalmology in [place], [place] [address] [phone] Ole Viera Jr., M.D. [address] [phone] Social History Tobacco Use Types Packs/Day Years [...]
--- OUTSIDE RECORDS SUMMARY | 2023-07-01 10:41 | XMS_ITS | Clinical Summary ---
Author Name Unknown Organization [facility] Address [address] [place] [address] Care Team Providers Care Certified Adapted Physical Educator Name Role Phone Unavailable Primary Care Provider Unavailabl e Source Comments Patient records contain information from all sites at [facility]. For routine questions regarding patient records, call [phone] during business hours, M-F 8:00 AM - 5:00 PM Central Time. Record requests for emergency care only can be directed to [phone] at any time.[facility] Allergies No known active allergies [...] Atherosclerosis Extremity w Claudication Coronary Artery Disease [place] Vessel 11/30/2007 Hypertension Essential Primary 03/08/2003 Resolved [...] Comments Blood Pressure 151/57 08/04/2020 9:20 AM CUSTOMER ENGINEER Pulse 60 08/04/2020 9:05 AM CUSTOMER ENGINEER Temperature 36.5 ??C (97.7 ??F) 02/28/2019 9:34 AM CD T Respiratory Rate 16 02/15/2018 9:14 AM CDT Oxygen Saturation 98% 08/04/2020 9:05 AM CUSTOMER ENGINEER Inhaled Oxygen Concentration - - Weight 72.7 kg (160 lb 4.4 oz) 08/04/2020 9:05 A M CUSTOMER ENGINEER Height 160 cm (5' 2.99) 02/28/2019 9:34 [...] history exists Medical Devices Implanted Type Area Integrated Program Teacher Device Identifier Shelf Expiration Date Model / Serial / Lot Protege Everflex 7 X 80 X 120 - [id number] [id number] Implanted:Qty: 1 on 06/27/2008 Vascular Stent ev3 Description:Device Manufactu rer - EV3. Device Status Text - [id number]. Advance Directives For more information, please contact: [phone] Documents on File Type Date Recorded Patient Delivery Agent Expl anation Advance Directives 06/27/2008 12:00 AM Leg acy document. See document viewer.
--- OUTSIDE RECORDS SUMMARY | 2023-07-01 10:41 | XMS_ITS | Encounter Summary ---
Author Name Unknown Organization [facility] Address [address] [place] [address] Care Team Providers Care Paste Thinner Name Role Phone Unavailable Primary Care Provider Unavailabl e Reason for Visit * Reason Comments Med Refill Encounter Details Date Type Department Care Team (Late st Contact Info) Description 10/29/2022 Refill Department of Ophthalmology in [place], [place] [address] [phone] Ole Viera Jr., M.D. [address] [phone] Med Refill Social History Tobacco Use Types [...]
--- OUTSIDE RECORDS SUMMARY | 2023-07-01 10:41 | XMS_ITS ---
Author Name Unknown Organization [facility] Address [address] [place] [address] Care Team Providers Care Vp Care Management Name Role Phone Unavailable Unavailable Unavailable Surgery Details Not on file Complications Check Surgery Details section. Procedure Estimated Blood Loss Check Surgery Details section. Procedure Findings Check Surgery Details section. Procedure Specimens Taken Check Surgery Details section.
--- OUTSIDE RECORDS SUMMARY | 2023-07-01 10:41 | XMS_ITS | Clinical Summary ---
Author Name Unknown Organization [facility] Address [place], [place] [address] Care Team Providers Care Account Leader Name Role Phone Natalia Jameson MD Primary [...] T Respiratory Rate 16 07/07/2020 3:42 PM ROLL OUT MANAGER Oxygen Saturation 98% 11/05/2021 2:59 PM CDT Inhaled Oxygen Concentration - - Weight 72.3 kg (159 lb 8 oz) 11/05/2021 2:59 PM CDT Height 162.6 cm (5' 4) 07/06/2020 1:06 AM ROLL OUT MANAGER Body Mass Index 27.38 07/06/2020 1:06 AM ROLL OUT MANAGER Plan of Treatment Health Maintenance Due Date [...] Comments Code Status Discussion: Discussed Care Teams Account Leader Relationship Specialty Start Date [place] [address] PCP - General 11/05/21
--- OUTSIDE RECORDS SUMMARY | 2023-07-01 10:41 | XMS_ITS | Referral Summary ---
Author Name Unknown Organization [facility] Address [address] [place] [address] Care Team Providers Care Cinder Pit Worker Name Role Phone Unavailable Primary Care Provider Unavailabl e Source Comments Patient records contain information from all sites at [facility]. For routine questions regarding patient records, call [phone] during business hours, M-F 8:00 AM - 5:00 PM Central Time. Record requests for emergency care only can be directed to [phone] at any time.[facility] Allergies No known active allergies [...] Atherosclerosis Extremity w Claudication Coronary Artery Disease [place] Vessel 11/30/2007 Hypertension Essential Primary 03/08/2003 Resolved [...] Comments Blood Pressure 151/57 08/04/2020 9:20 AM VESSEL SLAG WORKER Pulse 60 08/04/2020 9:05 AM VESSEL SLAG WORKER Temperature 36.5 ??C (97.7 ??F) 02/28/2019 9:34 AM CD T Respiratory Rate 16 02/15/2018 9:14 AM CDT Oxygen Saturation 98% 08/04/2020 9:05 AM VESSEL SLAG WORKER Inhaled Oxygen Concentration - - Weight 72.7 kg (160 lb 4.4 oz) 08/04/2020 9:05 A M VESSEL SLAG WORKER Height 160 cm (5' 2.99) 02/28/2019 9:34 AM CDT Body Mass Index 28.4 02/28/2019 9:34 AM CDT Plan of Treatment Not on file Medical Devices Implanted Type Area Keno Dealer Device Identifier Shelf Expiration Date Model / Serial / Lot Protege Everflex 7 X 80 X 120 - [id number] [id number] Implanted:Qty: 1 on 06/27/2008 Vascular Stent ev3 Description:Device Manufactu rer - EV3. Device Status Text - [id number]. Advance Directives For more information, please contact: [phone] Documents on File Type Date Recorded Patient Welt Sewer Expl anation Advance Directives 06/27/2008 12:00 AM Leg acy document. See document viewer.
--- OUTSIDE RECORDS SUMMARY | 2023-07-01 10:42 | XMS_ITS | Encounter Summary ---
Author Name Unknown Organization [facility] Address [address] [place] [address] Care Team Providers Care Edi Consultant Name Role Phone Unavailable Primary Care Provider Unavailabl e Encounter Details Date Type Department Care Team (Late st Contact Info) Description 10/31/2015 Historical Ophthalmology [facility] Ole Viera Jr., M.D. [address] [place] [phone] Social History Tobacco Use Types Packs/Day Years [...] VF OU CDM Reports - EYEGEN Id: [id number] Status: Fnl documented in this encounter Plan of Treatment Not on file documented as of this encounter Visit Diagnoses Not on filedocumented in this encounter Additional Health Concerns Assessment Noted Time PHQ-9 Depression Total Score: 0 09/24/19 15 3:20 PM CDT documented as of this encounter
== END 2023-06-25 20:35 | disposition home or self-care (01) ==
LOC: AMB 07-01 10:31
PROVIDERS: PCP Chiropractor; Visit Provider Internal Medicine
DX: I49.9 Cardiac arrhythmia, unspecified (principal)
CPT/HCPCS: A0425; A0427; A0428

== ENCOUNTER 2023-06-25 21:07 | Emergency (ER) | payer MEDICARE, OTHER, SELFPAY ==
[2023-06-25 21:11] VITALS: BP 119/94; PULSE 129; RESP 18; TEMP 36.8; O2SAT 96; BMI 28.0
--- NOTE | 2023-06-25 21:23 | CRLHL7_ITS ---
For Patients: As a result of the Century Cures Act, medical imaging exams and procedure reports are released immediately into your electronic medical record. You may view this report before your referring provider. If you have questions, please contact your health care provider. Indication: Chest pain and palpitations. Technique: Chest 1 view. Comparison: 05/20/2022. Findings/Impression: Cardiovascular and mediastinum: Heart size and vasculature are normal in caliber and appearance. Lungs and pleural space: Central peribronchial soft tissue thickening could indicate acute or chronic bronchitis. Remainder of the lungs and pleural spaces are clear. No pneumothorax. Bones and soft tissues: No acute findings. Dictated by Kong Rivas MD @ 06/25/2023 11:03:33 PM (Electronically Signed)
[2023-06-25 21:30] LABS: Basophils Absolute Auto 0.02 K/uL (0.00-0.30); Basophils Percent Auto 0.3 % (0.0-3.0); Eosinophils Absolute Auto 0.27 K/uL (0.00-0.50); Eosinophils Percent Auto 4.1 % (0.0-7.0); Hematocrit 42.4 % (33.0-51.0); Hemoglobin* 14.4 gm/dL (12.0-16.0); Immature Granulocytes Abs Auto 0.01 K/uL (0.00-0.30); Immature Granulocytes Pct Auto 0.2 %; Lymphocytes Absolute Auto 1.77 K/uL (0.90-2.90); Lymphocytes Percent Auto 26.9 % (20-44); Mean Corpuscular HGB Conc 34 gm/dL (32-36); Mean Corpuscular Hemoglobin 30 pg (26-34); Mean Corpuscular Volume 87 fL (80-100); Monocytes Percent Auto 8.5 % (0.0-11.0); Neutrophils Absolute Auto 3.95 K/uL (1.7-7.0); Platelet Count* 205 K/uL (140-440); RDW Coefficient of Variation % 13.3 % (11.5-15.5); Red Blood Count 4.87 m/uL (4.00-5.20); White Blood Count* 6.58 K/uL (4.50-11.00)
--- NOTE | 2023-06-25 21:30 | ED_ITS ---
HPI - Arrhythmia/Palpitations General Chief Complaint: Arrhythmia/Palpitations Stated Complaint: Palpitations Time Seen by Provider: 06/25/23 21:23 History of Present Illness HPI narrative: Patient is an 80-year-old woman who was watching television tonight when she developed palpitations and sensation that her heart was racing. She went to the nurse in her of facility at the [facility] and was directed to call 911. Upon arrival she has an EKG showing a rhythm of atrial fibrillation which is a new rhythm for her. Her rate is 108 beats per minute. Patient has had no chest pain no shortness a breath orthopnea no PND. She has had no other respiratory symptoms. Symptoms have been present now for proximally 2 hours. I did review her record and there was no previous mention of atrial fibrillation. She does take baby aspirin but no anticoagulation. Related Data Home Medications Medication Instructions Recorded Confirmed anastrozole 1 mg tablet 1 mg PO 05/20/22 atorvastatin 80 mg tablet 80 mg PO 05/20/22 hydrochlorothiazide 25 mg tablet 12.5 mg PO 05/20/22 lisinopril 40 mg tablet 20 mg PO 05/20/22 metoprolol succinate 25 mg 50 mg PO 05/20/22 tablet,extended release 24 hr omeprazole 20 mg capsule,delayed 20 mg PO 05/20/22 release amlodipine 2.5 mg tablet 2.5 mg PO DAILY 06/25/23 06/25/23 aspirin 81 mg tablet,delayed 81 mg PO DAILY 06/25/23 06/25/23 release (Adult Low Dose Aspirin) Allergies Allergy/AdvReac Type Severity Reaction Status Date / Time No Known Drug Allergies Allergy Verified 05/20/22 20:44 Review of Systems Status of ROS: Reports: 10 or more systems reviewed and unremarkable except as noted in History and below [facility] Social History Smoking Status: Never smoker How often do you have a drink containing alcohol: 2-3 times a week How many standard drinks containing alcohol do you have on a typical day: 1 or 2 How often do you have six or more drinks on one occasion: Never AUDIT-C Alcohol total score: 3 Non-prescribed substance use: denies use Exam Narrative: Exam Narrative: EXAM GENERAL: Patient appears comfortable and well. EYES: No scleral icterus. ENT: Tympanic membranes and oropharynx normal. THYROID: no thyroid nodules or thyromegaly. LYMPH: No supraclavicular or cervical lymphadenopathy. SKIN: Visible skin seen during exam normal or with benign process only. EXT: No dependent lower extremity pedal edema. HEART: Irregularly irregular with distant heart tones. LUNGS: Clear to auscultation bilaterally with no crackles or wheezes. ABD: Soft, non tender, non distended. PSYCH: Good eye contact, speech is not pressured. Const: Vital Signs, click to edit/add: Vital Signs - 24 hr 06/25/23 21:11 Temperature 98.2 F Pulse Rate [Pulse Oximeter] 129 H Respiratory Rate 18 Blood Pressure [Le ft Upper Arm] 119/94 H Pulse Oximetry 96 Oxygen Delivery Me thod Room Air Course Course ED Course: Patient seen examined. Troponin CBC basic metabolic panel chest x-ray pending. I did give her 5 mg of IV metoprolol. Vital Signs Vital signs: Initial Vital Signs Temperature 98.2 F 06/25/23 21:11 Temperature Source Temporal Artery Scan 06/25/23 21:11 Pulse Rate 129 H 06/25/23 21:11 Pulse Rhythm Irregular 06/25/23 21:11 Respiratory Rate 18 06/25/23 21:11 Blood Pressure 119/94 H 06/25/23 21:11 Blood Pressure Mean 102 06/25/23 21:11 Blood Pressure Position Supine 06/25/23 21:11 Pulse Oximetry 96 06/25/23 21:11 Oxygen Delivery Method Room Air 06/25/23 21:11 Vital Signs Temperature 98.2 F 06/25/23 21:11 Pulse Rate 129 H 06/25/23 21:11 Respiratory Rate 18 06/25/23 21:11 Blood Pressure 119/94 H 06/25/23 21:11 Pulse Oximetry 96 06/25/23 21:11 Oxygen Delivery Method Room Air 06/25/23 21:11 Temperature 98.2 F 06/25/23 21:11 Pulse Rate 129 H 06/25/23 21:11 Respiratory Rate 18 06/25/23 21:11 Blood Pressure 119/94 H 06/25/23 21:11 Pulse Oximetry 96 06/25/23 21:11 Oxygen Delivery Method Room Air 06/25/23 21:11 Medications Administered Medications: Generic Name Dose Route Start Last Admin Trade Name Freq PRN Reason Stop Dose Admin Metoprolol Tartrate 5 mg 06/25/23 21:24 06/25/23 21:48 Metoprolol Tartrate 1 Mg/Ml Inj IVP 06/25/23 21:25 5 mg ONCE ONE Administration MDM - Arrhythmia/Palpitations MDM Narrative Medical decision making narrative: Patient is a 88-year-old woman with comorbidities but no history of atrial fibrillation who presents with atrial fibrillation. Her rate is approximately 110 beats per minute. Troponin is negative electrolytes are stable CBCs unremarkable chest x-ray is largely unremarkable. Patient takes baby aspirin daily. I did give her 5 mg of metoprolol and she did lower her rate approximately 85 beats per minute. She does take metoprolol once a day in the evening. Will plan to increase this to b.i.d. stopping her baby aspirin his starting her on Eliquis. She does get her meds through the [facility] and states she will be able to do this. Differential Diagnosis Differential diagnosis: Likely palpitations, anxiety, sinus tachycardia, artial fibrillation, artial flutter, ventricular premature beats, supraventricular tachycardia, ventricular tachycardia and WPW Lab Data Labs: Lab Results 06/25/23 Range/Units 19:24 WBC 6.58 (4.50-11.00) K/uL RBC 4.87 (4.00-5.20) m/uL Hgb 14.4 (12.0-16.0) gm/dL Hct 42.4 (33.0-51.0) % MCV 87 (80-100) fL MCH 30 (26-34) pg MCHC 34 (32-36) gm/dL RDW Coeff of [place] 13.3 (11.5-15.5) % Plt Count 205 (140-440) K/uL Neut % (Auto) 60.0 (42.0-72.0) % Lymph % (Auto) 26.9 (20-44) % [place] % (Auto) 8.5 (0.0-11.0) % Eos % (Auto) 4.1 (0.0-7.0) % Baso % (Auto) 0.3 (0.0-3.0) % Neut # (Auto) 3.95 (1.7-7.0) K/uL Lymph # (Auto) 1.77 (0.90-2.90) K/uL [place] # (Auto) 0.60 (0.00-0.90) K/UL Eos # (Auto) 0.27 (0.00-0.50) K/uL Baso # (Auto) 0.02 (0.00-0.30) K/uL Abs Immat Gran (auto) 0.01 (0.00-0.30) K/uL Imm/Tot Granulo (auto) 0.2 % Sodium 136 (135-149) mmol/L Potassium 3.5 L (3.6-5.1) mmol/L Chloride 106 (96-114) mmol/L Carbon Dioxide 22 (20-32) mmol/L Anion Gap 8 (7-15) mEq/L BUN 16 (7-30) mg/dL Creatinine 0.6 (0.5-1.5) mg/dL Estimated Creat Clear 33.58 Estimated GFR 86 ml/min Glucose 125 H (60-115) mg/dL Calcium 8.9 (8.4-10.6) mg/dL Troponin I 0.02 (0.01-0.04) ng/mL Discharge Plan Discharge Clinical Impression: Atrial fibrillation Patient Disposition: Home, Self-Care Condition: Stable Instructions: A-fib (Atrial Fibrillation) (ED) Additional Instructions: Stop aspirin increase metoprolol to 25 mg twice daily. Contacted [facility] to begin Eliquis for blood thinner. Move up your next appointment at the [facility] to establish care for new onset atrial fibrillation. Activity Level: No Restrictions Discharge Diet: Regular Prescriptions: No Action anastrozole 1 mg tablet 1 mg PO Patient Comments: TAKE 1 TABLET BY MOUTH EVERY DAY atorvastatin 80 mg tablet 80 mg PO hydrochlorothiazide 25 mg tablet 12.5 mg PO lisinopril 40 mg tablet 20 mg PO omeprazole 20 mg capsule,delayed release(DR/EC) 20 mg PO metoprolol succinate 25 mg tablet extended release 24 hr 50 mg PO Patient Comments: TAKE 1 TABLET BY MOUTH EVERYDAY AT BEDTIME amlodipine 2.5 mg tablet 2.5 mg PO DAILY aspirin [Adult Low Dose Aspirin] 81 mg tablet,delayed release (DR/EC) 81 mg PO DAILY Follow Up/Referrals: Joe Ocampo DO [Primary Care Provider] - Stand Alone Forms: [employer] Info Instructions
[2023-06-25 21:37] LABS: Slide Review Reflex No
[2023-06-25 21:42] LABS: Chloride* 106 mmol/L (96-114); Sodium* 136 mmol/L (135-149)
[2023-06-25 21:43] LABS: Potassium* 3.5 mmol/L (3.6-5.1)
[2023-06-25 21:45] LABS: Anion Gap 8 mEq/L (7-15); Carbon Dioxide* 22 mmol/L (20-32); Creatinine* 0.6 mg/dL (0.5-1.5); Est. Creatinine Clearance* 33.58; Estimated Glomerular Filt Rate 86 ml/min
[2023-06-25 21:46] LABS: Blood Urea Nitrogen* 16 mg/dL (7-30); Calcium* 8.9 mg/dL (8.4-10.6); Glucose* 125 mg/dL (60-115)
[2023-06-25] MEDS: METOPROLOL TARTRATE 1 MG/ML inj 5 MG IVP (21:48)
[2023-06-25 21:58] LABS: Troponin I* 0.02 ng/mL (0.01-0.04)
--- NOTE | 2023-06-25 22:48 | ED.NURSE ---
Pt has no ride or family to take her back to [facility]. This nurse called the [facility] Nurse, who has a master marcos and she will walk over to [facility] and open up her apartment, [id number]. [facility] was called for ambulance ride back, wheelchair ride.
== END 2023-06-25 23:05 | disposition home or self-care (01) ==
PROVIDERS: Emergency Provider Internal Medicine; PCP Chiropractor
DX: I48.91 Unspecified atrial fibrillation (principal)
CPT/HCPCS: 36415; 71045; 80048; 84484; 85025; 99283; 99284

== ENCOUNTER 2023-06-25 22:56 | Outpatient (CLI) | payer MEDICARE, OTHER, SELFPAY ==
--- OUTSIDE RECORDS SUMMARY | 2023-06-30 08:27 | XMS_ITS | Continuity of Care Document ---
Author Name [facility] Organization [facility] Care Team Providers Care Measurer Machine Name Role Phone [facility] Unavailable Unavailable Problems Combined list of problems from Department of Defense and Veterans Affairs facilities. It does not include entries that were removed or entered in error. 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 ([facility] [id number]) Active Condition Mar 26, 2021 Entered By: DOMINIC TREJO Comment: L breast, 1.2 cm, 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; [place] pos, HER2 neg.Mar 26, 2021 Entered By: DOMINIC TREJO Comment: pT1c, N0, M0-Stage 1AMar 26, 2021 Entered By: DOMINIC TREJO Comment: s/p lumpectomy 06/2014, radiation therapyMar 26, 2021 Entered By: DOMINIC TREJO Comment: On Anastrazole since 07/2014 [facility] Giant cell arteritis Active Condition Mar 16, 2021 Entered By: DOMINIC TREJO Comment: 2011 [facility] 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 [place] [facility] History of cholecystectomy Active [place] [facility] History of total knee arthroplasty Active Condition Mar 26 21 Entered By: DOMINIC TREJO Comment: R knee [facility] Osteopenia Active Condition Mar 26 Entered By: DOMINIC TREJO Comment: R humerus fracture 2015; T score at L femoral neck -1.3 2020 Entered By: DOMINIC TREJO Comment: Started aledronate (35mg weekly) 03/2017 [facility] Peripheral vascular disease Active Condition Nov 17, 2020 Entered By: DOMINIC TREJO Comment: s/p stenting Femoral artery, 2008 [facility] Polymyalgia rheumatica Active Condition [facility] Prediabetes ([facility] [id number]) Active Condition [facility] Sleep Apnea ([facility] [id number]) Active Condition [facility] Thoracic aortic aneurysm without rupture Active Condition [facility] Diagnosis: ICD-10-CM D48.5 Neoplasm of uncertain behavior of skin Active Diagnosis [facility] Diagnosis: ICD-10-CM Z71.9 Counseling, unspecified Active Diagnosis [facility] Diagnosis: ICD-10-CM Z48.02 Encounter for removal of sutures [facility] Diagnosis: ICD-10-CM 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, inc shoulder Active Diagnosis [facility] Diagnosis: ICD-10-CM G51.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, left Active Diagnosis [facility] Diagnosis: ICD-10-CM L98.9 Disorder of the skin and subcutaneous tissue, unspecified Active Diagnosis [facility] Diagnosis: ICD-10-CM C44.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 Active Diagnosis [facility] Diagnosis: ICD-10-CM 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 Diagnosis [facility] Diagnosis: ICD-10-CM M25.572 Pain in left ankle and joints of left foot Active Diagnosis [facility] Diagnosis: ICD-10-CM M25.571 Pain in right ankle and joints of right foot Active Diagnosis [facility] Diagnosis: ICD-10-CM L82.1 Other seborrheic keratosis Active Diagnosis [facility] Diagnosis: ICD-10-CM I47.1 Supraventricular tachycardia Active Diagnosis [facility] Diagnosis: ICD-10-CM I49.8 Other specified cardiac arrhythmias Active Diagnosis [facility] Diagnosis: ICD-10-CM Z23 Encounter for immunization Active Diagnosis [facility] Diagnosis: ICD-10-CM I10 Essential (primary) hypertension Active Diagnosis [facility] Diagnosis: ICD-10-CM I73.9 Peripheral vascular disease, unspecified Active Diagnosis [facility] Diagnosis: ICD-10-CM C50.919 Malignant neoplasm of unsp site of unspecified female breast Active Diagnosis [facility] Diagnosis: ICD-10-CM Z00.00 Encntr for general adult medical exam w/o abnormal findings Active Diagnosis [facility] Diagnosis: ICD-10-CM R60.9 Edema, unspecified Active Diagnosis [facility] Diagnosis: ICD-10-CM M62.81 Muscle weakness (generalized) Active Diagnosis [facility] Medications Combined list of outpatient medications [...] FOR BLOOD PRESSURE ORALLY DISCONT INUED 08/11/2023 [id number] DOMINIC TREJO 2022 [facility] AMLODIPINE BESYLATE 2.5MG TAB TAKE ONE TABLET BY MOUTH EVERY DAY FOR BLOOD PRESSURE ORALLY DISCONT INUED (EDIT) 04/20/2023 [id number] 3 MIC LUCAS 2021 [facility] AMLODIPINE BESYLATE 5MG TAB TAKE ONE TABLET BY MOUTH EVERY DAY FOR BLOOD PRESSURE ORALLY DISCONT INUED 01/25/2024 [id number] 3 VIORQUIDEA Hubbard 2022 [facility] ANASTROZOLE 1MG TAB TAKE ONE TABLET BY MOUTH EVERY DAY FOR BREAST CANCER ORALLY DISCONT INUED 02/11/2024 [id number] 3 VI,ORQUIDEA Gonzalez 2022 [facility] ANASTROZOLE 1MG TAB TAKE ONE TABLET BY MOUTH EVERY DAY FOR BREAST CANCER ORALLY DISCONT INUED (EDIT) 08/11/2023 [id number] 3 DOMINIC TREJO 2022 [facility] ANASTROZOLE 1MG TAB TAKE ONE TABLET BY MOUTH EVERY DAY ORALLY DISCONT INUED (EDIT) 03/17/2023 [id number] 3 [facility] ASPIRIN 81MG TAB,CHEWABL E CHEW ONE TABLET BY MOUTH EVERY DAY ORALLY ACTIVE 03/15/2024 [id number] DOMINIC TREJO 2022 [place] [facility] ASPIRIN 81MG TAB,CHEWABL E CHEW ONE TABLET BY MOUTH EVERY DAY ORALLY DISCONT INUED 03/17/2023 [id number] DOMINIC TREJO 2022 [place] [facility] ATORVASTATI N CA 80MG TAB TAKE ONE TABLET BY MOUTH EVERY DAY FOR CHOLESTE ROL ORALLY ACTIVE 02/11/2024 [id number] 3 VIORQUIDEA Kailash Gonzalez 2022 [place] [facility] ATORVASTATI N CA 80MG TAB TAKE ONE TABLET BY MOUTH EVERY DAY FOR CHOLESTE ROL ORALLY DISCONT INUED (EDIT) 08/11/2023 [id number] 3 DOMINIC TREJO 2022 [facility] CALCIUM 250MG/VITAM IN D 125UNT TAB TAKE 2 TABLETS BY MOUTH EVERY DAY ORALLY ACTIVE 03/15/2024 [id number] 3 DOMINIC TREJO 2022 [facility] CALCIUM 250MG/VITAM IN D 125UNT TAB TAKE 2 TABLETS BY MOUTH EVERY DAY ORALLY DISCONT INUED 03/17/2023 [id number] 3 DOMINIC TREJO 2022 [facility] CHOLECALCIF GAURAV 25MCG (1,000UNIT) TAB TAKE TWO TABLETS BY MOUTH EVERY DAY ORALLY 03/17/2023 [id number] DOMINIC TREJO 2021 [facility] HYDROCHLORO THIAZIDE 12.5MG TAB TAKE ONE TABLET BY MOUTH EVERY DAY FOR BLOOD PRESSURE ORALLY DISCONT INUED (EDIT) 08/11/2023 [id number] 3 DOMINIC TREJO 2022 [facility] HYDROCHLORO THIAZIDE 25MG TAB TAKE ONE TABLET BY MOUTH EVERY DAY FOR BLOOD PRESSURE ORALLY ACTIVE 02/11/2024 [id number] 3 VI,ORQUIDEA Gonzalez 2022 [place] [facility] HYDROCHLORO THIAZIDE 25MG TAB TAKE ONE-HALF TABLET BY MOUTH EVERY DAY ORALLY DISCONT INUED (EDIT) 03/17/2023 [id number] 3 DOMINCI TREJO 2022 [place] [facility] LISINOPRIL 40MG TAB TAKE ONE TABLET BY MOUTH EVERY DAY FOR BLOOD PRESSURE ORALLY ACTIVE 02/11/2024 [id number] 3 VI,ORQUIDEA Gonzalez 2022 [place] [facility] LISINOPRIL 40MG TAB TAKE ONE TABLET BY MOUTH EVERY DAY FOR BLOOD PRESSURE ORALLY DISCONT INUED (EDIT) 08/11/2023 [id number] 3 DOMINIC TREJO 2022 [place] [facility] LISINOPRIL 40MG TAB TAKE ONE TABLET BY MOUTH EVERY DAY FOR BLOOD PRESSURE ORALLY DISCONT INUED (EDIT) 05/18/2023 [id number] 3 MIC LUCAS 2021 [place] [facility] METOPROLOL SUCCINATE 50MG TAB,SA TAKE ONE TABLET BY MOUTH AT BEDTIME FOR BLOOD PRESSURE ORALLY ACTIVE 02/11/2024 [id number] 3 VI,ORQUIDEA Gonzalez 2022 [place] [facility] METOPROLOL SUCCINATE 50MG TAB,SA TAKE ONE TABLET BY MOUTH AT BEDTIME FOR BLOOD PRESSURE ORALLY DISCONT INUED (EDIT) 08/11/2023 [id number] DOMINIC TREJO 2022 [place] [facility] METOPROLOL SUCCINATE 50MG TAB,SA TAKE ONE TABLET BY MOUTH AT BEDTIME ORALLY DISCONT INUED (EDIT) 06/30/2023 [id number] 3 DOMINIC TREJO 2022 [place] [facility] METOPROLOL SUCCINATE 50MG TAB,SA TAKE ONE-HALF TABLET BY MOUTH AT BEDTIME ORALLY DISCONT INUED (EDIT) 03/17/2023 [id number] 3 DOMINIC TREJO 2022 [facility] NITROFURANT OIN MONOHYDRATE /MACROCRYST ALLINE 100MG CAP,SA TAKE ONE CAPSULE BY MOUTH EVERY DAY DIRECTED TO PREVENT URINARY TRACT INFECTIO N AFTER SWIMMING ORALLY DISCONT INUED 10/12/2023 [id number] 3 PATRICIA APPIAHDOMINIC DOWNING 2022 [facility] OLOPATADINE HCL 0.1% SOLN,OPH INSTILL 1 DROP IN BOTH EYES TWICE A DAY BOTH EYES ACTIVE 03/15/2024 [id number] 3 PATRICIA ELYDOMINIC 2022 [facility] OLOPATADINE HCL 0.1% SOLN,OPH INSTILL 1 DROP IN BOTH EYES TWICE A DAY BOTH EYES DISCONT INUED 03/17/2023 [id number] 3 GOMEZ DOMINIC ELY 2022 [facility] OMEPRAZOLE 20MG CAP,EC TAKE ONE CAPSULE BY MOUTH TWICE A WEEK ON AN EMPTY STOMACH, AT LEAST 30 MINUTES PRIOR TO A MEAL ORALLY ACTIVE 03/15/2024 [id number] 3 PATRICIA ELYDOMINIC 2022 [facility] OMEPRAZOLE 20MG CAP,EC TAKE ONE CAPSULE BY MOUTH TWICE A WEEK ON AN EMPTY STOMACH, AT LEAST 30 MINUTES PRIOR TO A MEAL ORALLY DISCONT INUED 03/17/2023 [id number] GOMEZ DOMINIC ELY 2022 [facility] Immunizations Combined list of available immunizations from the Department of Defense and Veterans Affairs facilities. 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 Operator Status Comments Source INFLUENZA VACCINE, QUADRIVALENT, ADJUVANTED 2022 205 complet ed [facility] COVID-19 (MODERNA), MRNA, LNP-S, PF, 50 MCG/0.5 ML (AGES 12+ YEARS) 2022 312 complet ed [facility] COVID-19 (PFIZER), MRNA, LNP-S, BIVALENT BOOSTER, PF, 30 MCG/0.3 ML DOSE 1 2022 TAMI [place] RIGHT DELTO ID [id number] 300 complet ed [facility] COVID-19 (MODERNA), MRNA, LNP-S, BIVALENT, PF, 50 MCG/0.5 ML OR 25MCG/0.25 ML DOSE 2021 229 complet ed [facility] INFLUENZA, UNSPECIFIED FORMULATION 2021 88 complet ed [facility] INFLUENZA, HIGH-DOSE, QUADRIVALENT 2021 197 complet ed [facility] COVID-19 (MODERNA), MRNA, LNP-S, PF, 100 MCG/0.5ML DOSE OR 50 MCG/0.25ML DOSE 2021 207 complet ed [facility] COVID-19 (MODERNA), MRNA, LNP-S, PF, 100 MCG/0.5ML DOSE OR 50 MCG/0.25ML DOSE 3 2020 207 complet ed [facility] INFLUENZA, HIGH-DOSE, QUADRIVALENT 2020 197 complet ed [facility] INFLUENZA, UNSPECIFIED FORMULATION 2020 88 complet ed [facility] COVID-19 (MODERNA), MRNA, LNP-S, PF, 100 MCG/0.5 ML DOSE 2 2020 207 complet ed [facility] COVID-19 (MODERNA), MRNA, LNP-S, PF, 100 MCG/0.5 ML DOSE 1 2020 207 complet ed [facility] INFLUENZA, INJECTABLE, QUADRIVALENT, PRESERVATIVE FREE 2019 150 complet ed [facility] INFLUENZA, UNSPECIFIED FORMULATION 2019 88 complet ed [facility] INFLUENZA, HIGH DOSE SEASONAL 2018 135 complet ed [facility] ZOSTER RECOMBINANT 2 2018 187 complet ed per [facility] ZOSTER RECOMBINANT 1 2018 187 complet ed per [facility] INFLUENZA, HIGH DOSE SEASONAL 2017 135 complet ed [facility] INFLUENZA, HIGH DOSE SEASONAL 2016 135 complet ed [facility] INFLUENZA, HIGH DOSE SEASONAL 2015 135 complet ed [facility] PNEUMOCOCCAL CONJUGATE PCV 13 2014 133 complet ed per [facility] INFLUENZA, UNSPECIFIED FORMULATION 2014 88 complet ed [facility] TDAP 2014 115 complet ed per [facility] INFLUENZA, SEASONAL, INJECTABLE 2010 141 complet ed [facility] INFLUENZA, SEASONAL, INJECTABLE, PRESERVATIVE FREE 2009 140 complet ed [facility] ZOSTER LIVE 2009 121 complet ed [facility] PNEUMOCOCCAL POLYSACCHARID E PPV23 2009 33 complet ed [facility] PNEUMOCOCCAL, UNSPECIFIED FORMULATION 2009 109 complet ed [facility] NOVEL INFLUENZA-H1N 1-09, ALL FORMULATIONS 2008 128 complet ed [facility] TD (ADULT), 2 LF TETANUS TOXOID, PRESERVATIVE FREE, ADSORBED 2008 09 complet ed [facility] INFLUENZA, UNSPECIFIED FORMULATION 2008 88 complet ed [facility] INFLUENZA, SEASONAL, INJECTABLE 2007 141 complet ed [facility] INFLUENZA, SEASONAL, INJECTABLE 2001 141 complet ed [facility] INFLUENZA, SEASONAL, INJECTABLE 2000 141 complet ed [facility] Results Combined list of recent chemistry, hematology [...] Feb 10, 2023 09:08 AM Reporting Lab: [facility] [address] Performing Lab: [facility] [address] [facility] BASIC METABOLIC PANEL+MG UREA NITROGEN [MASS/VOLUM E] IN SERUM OR PLASMA 9 7 - 20 03/15 Specimen Type: PLASMA No comment entered. Ordering Provider: MARIMAR LEBRON Report Released Date/Time: Feb 10, 2023 09:08 AM Reporting Lab: [facility] [address] Performing Lab: [facility] [address] [place] [facility] BASIC METABOLIC PANEL+MG GLUCOSE [MASS/VOLUM E] IN SERUM OR PLASMA 106 70 - 100 03/15 H Specimen Type: PLASMA No comment entered. Ordering Provider: MARIMAR LEBRON Report Released Date/Time: Feb 10, 2023 09:08 AM Reporting Lab: [facility] [address] Performing Lab: [facility] [address] [place] [facility] BASIC METABOLIC PANEL+MG SODIUM [MOLES/VOLU ME] IN SERUM OR PLASMA 138 136 - 145 03/15 Specimen Type: PLASMA No comment entered. Ordering Provider: MARIMAR LEBRON Report Released Date/Time: Feb 10, 2023 09:08 AM Reporting Lab: [facility] [address] Performing Lab: [facility] [address] [place] [facility] BASIC METABOLIC PANEL+MG POTASSIUM [MOLES/VOLU ME] IN SERUM OR PLASMA 3.4 3.5 - 5.1 03/15 L Specimen Type: PLASMA No comment entered. Ordering Provider: MARIMAR LEBRON Report Released Date/Time: Feb 10, 2023 09:08 AM Reporting Lab: [facility] [address] Performing Lab: [facility] [address] [place] [facility] BASIC METABOLIC PANEL+MG CHLORIDE [MOLES/VOLU ME] IN SERUM OR PLASMA 103 98 - 107 03/15 Specimen Type: PLASMA No comment entered. Ordering Provider: MARIMAR LEBRON Report Released Date/Time: Feb 10, 2023 09:08 AM Reporting Lab: [facility] [address] Performing Lab: [facility] [address] [place] [facility] BASIC METABOLIC PANEL+MG CARBON DIOXIDE, TOTAL [MOLES/VOLU ME] IN SERUM OR PLASMA 28 22 - 29 03/15 Specimen Type: PLASMA No comment entered. Ordering Provider: MARIMAR LEBRON Report Released Date/Time: Feb 10, 2023 09:08 AM Reporting Lab: [facility] [address] Performing Lab: [facility] [address] [place] [facility] BASIC METABOLIC PANEL+MG CALCIUM [MASS/VOLUM E] IN SERUM OR PLASMA 9.3 8.4 - 10.2 03/15 Specimen Type: PLASMA No comment entered. Ordering Provider: MARIMAR LEBRON Report Released Date/Time: Feb 10, 2023 09:08 AM Reporting Lab: [facility] [address] Performing Lab: [facility] [address] [place] [facility] BASIC METABOLIC PANEL+MG MAGNESIUM [MASS/VOLUM E] IN SERUM OR PLASMA 1.8 1.6 - 2.6 03/15 Specimen Type: PLASMA No comment entered. Ordering Provider: MARIMAR LEBRON Report Released Date/Time: Feb 10, 2023 09:08 AM Reporting Lab: [facility] [address] Performing Lab: [facility] [address] [place] [facility] BASIC METABOLIC PANEL+MG ANION GAP IN SERUM OR PLASMA 7 5 - 15 03/15 Specimen Type: PLASMA No comment entered. Ordering Provider: MARIMAR LEBRON Report Released Date/Time: Feb 10, 2023 09:08 AM Reporting Lab: [facility] [address] Performing Lab: [facility] [address] [place] [facility] BASIC METABOLIC PANEL+MG GLOMERULAR FILTRATION RATE/1.73 SQ M.PREDICTED [VOLUME RATE/AREA] IN SERUM, PLASMA OR BLOOD BY CREATININE- BASED FORMULA (CKD-EPI 2020) 86 60 03/15 Specimen Type: PLASMA No comment entered. Ordering Provider: MARIMAR LEBRON Report Released Date/Time: Feb 10, 2023 09:08 AM Reporting Lab: [facility] [address] Performing Lab: [facility] [address] [place] [facility] TSH W/REFLEX TO FREE T4 THYROTROPIN [UNITS/VOLU ME] IN SERUM OR PLASMA 0.61 0.35 - 4.94 03/15 Specimen Type: PLASMA No comment entered. Ordering Provider: HARRIS TREJO Report Released Date/Time: Mar 16, 2022 11:04 AM Reporting Lab: [facility] [address] Performing Lab: [facility] [address] [place] [facility] VIT D 25-OH,TOT AL 25-HYDROXYV ITAMIN D3 [MASS/VOLUM E] IN SERUM OR PLASMA 30 12 - 50 03/15 Specimen Type: SERUM No comment entered. Ordering Provider: HARRIS TREJO Report Released Date/Time: Mar 16, 2022 11:04 AM Reporting Lab: [facility] [address] Performing Lab: [facility] [address] [place] [facility] CBC LEUKOCYTES [#/VOLUME] IN BLOOD BY AUTOMATED COUNT 5.71 4.0 - 11.0 03/15 Specimen Type: BLOOD No comment entered. Ordering Provider: HARRIS TREJO Report Released Date/Time: Mar 16, 2022 11:04 AM Reporting Lab: [facility] [address] Performing Lab: [facility] [address] [place] [facility] CBC ERYTHROCYTE S [#/VOLUME] IN BLOOD BY AUTOMATED COUNT 4.77 4.0 - 5.4 03/15 Specimen Type: BLOOD No comment entered. Ordering Provider: HARRIS TREJO Report Released Date/Time: Mar 16, 2022 11:04 AM Reporting Lab: [facility] [address] Performing Lab: [facility] [address] [place] [facility] CBC HEMOGLOBIN [MASS/VOLUM E] IN BLOOD 14.2 11.5 - 16 03/15 Specimen Type: BLOOD No comment entered. Ordering Provider: HARRIS TREJO Report Released Date/Time: Mar 16, 2022 11:04 AM Reporting Lab: [facility] [address] Performing Lab: [facility] [address] [place] [facility] CBC HEMATOCRIT [VOLUME FRACTION] OF BLOOD BY AUTOMATED COUNT 40.8 34.5 - 48 03/15 Specimen Type: BLOOD No comment entered. Ordering Provider: HARRIS TREJO Report Released Date/Time: Mar 16, 2022 11:04 AM Reporting Lab: [facility] [address] Performing Lab: [facility] [address] [place] [facility] CBC MCV [ENTITIC VOLUME] BY AUTOMATED COUNT 85.5 80 - 100 03/15 Specimen Type: BLOOD No comment entered. Ordering Provider: HARRIS TREJO Report Released Date/Time: Mar 16, 2022 11:04 AM Reporting Lab: [facility] [address] Performing Lab: [facility] [address] [place] [facility] CBC MCH [ENTITIC MASS] BY AUTOMATED COUNT 29.8 27 - 33 03/15 Specimen Type: BLOOD No comment entered. Ordering Provider: HARRIS TREJO Report Released Date/Time: Mar 16, 2022 11:04 AM Reporting Lab: [facility] [address] Performing Lab: [facility] [address] [place] [facility] CBC MCHC [MASS/VOLUM E] BY AUTOMATED COUNT 34.8 32.0 - 37.5 03/15 Specimen Type: BLOOD No comment entered. Ordering Provider: HARRIS TREJO Report Released Date/Time: Mar 16, 2022 11:04 AM Reporting Lab: [facility] [address] Performing Lab: [facility] [address] [place] [facility] CBC PLATELETS [#/VOLUME] IN BLOOD BY AUTOMATED COUNT 187 150 - 400 03/15 Specimen Type: BLOOD No comment entered. Ordering Provider: HARRIS TREJO Report Released Date/Time: Mar 16, 2022 11:04 AM Reporting Lab: [facility] [address] Performing Lab: [facility] [address] [place] [facility] CBC PLATELET MEAN VOLUME [ENTITIC VOLUME] IN BLOOD BY AUTOMATED COUNT 9.3 7.4 - 10.4 03/15 Specimen Type: BLOOD No comment entered. Ordering Provider: HARRIS TREJO Report Released Date/Time: Mar 16, 2022 11:04 AM Reporting Lab: [facility] [address] Performing Lab: [facility] [address] [facility] CBC ERYTHROCYTE DISTRIBUTIO N WIDTH [RATIO] BY AUTOMATED COUNT 13.6 11.5 - 14.5 03/15 Specimen Type: BLOOD No comment entered. Ordering Provider: HARRIS TREJO Report Released Date/Time: Mar 16, 2022 11:04 AM Reporting Lab: [facility] [address] Performing Lab: [facility] [address] [place] [facility] HEMOGLOBI N A1C HEMOGLOBIN A1C/HEMOGLO BIN.TOTAL [...] Mar 16, 2022 11:04 AM Reporting Lab: [facility] [address] Performing Lab: [facility] [address] [place] [facility] BASIC METABOLIC PANEL+MG CREATININE [MASS/VOLUM E] IN SERUM OR PLASMA 0.6 0.5 - 1.0 06/29 Specimen Type: PLASMA No comment entered. Ordering Provider: HARRIS TREJO Report Released Date/Time: Jun 29, 2022 10:17 AM Reporting Lab: [facility] [address] Performing Lab: [facility] [address] [place] [facility] BASIC METABOLIC PANEL+MG UREA NITROGEN [MASS/VOLUM E] IN SERUM OR PLASMA 15 7 - 20 06/29 Specimen Type: PLASMA No comment entered. Ordering Provider: HARRIS TREJO Report Released Date/Time: Jun 29, 2022 10:17 AM Reporting Lab: [facility] [address] Performing Lab: [facility] [address] [place] [facility] BASIC METABOLIC PANEL+MG GLUCOSE [MASS/VOLUM E] IN SERUM OR PLASMA 94 70 - 100 06/29 Specimen Type: PLASMA No comment entered. Ordering Provider: HARRIS TREJO Report Released Date/Time: Jun 29, 2022 10:17 AM Reporting Lab: [facility] [address] Performing Lab: [facility] [address] [place] [facility] BASIC METABOLIC PANEL+MG SODIUM [MOLES/VOLU ME] IN SERUM OR PLASMA 141 136 - 145 06/29 Specimen Type: PLASMA No comment entered. Ordering Provider: HARRIS TREJO Report Released Date/Time: Jun 29, 2022 10:17 AM Reporting Lab: [facility] [address] Performing Lab: [facility] [address] [place] [facility] BASIC METABOLIC PANEL+MG POTASSIUM [MOLES/VOLU ME] IN SERUM OR PLASMA 3.9 3.5 - 5.1 06/29 Specimen Type: PLASMA No comment entered. Ordering Provider: HARRIS TREJO Report Released Date/Time: Jun 29, 2022 10:17 AM Reporting Lab: [facility] [id number] Performing Lab: [facility] [address] [place] [facility] BASIC METABOLIC PANEL+MG CHLORIDE [MOLES/VOLU ME] IN SERUM OR PLASMA 108 98 - 107 06/29 H Specimen Type: PLASMA No comment entered. Ordering Provider: HARRIS TREJO Report Released Date/Time: Jun 29, 2022 10:17 AM Reporting Lab: [facility] [address] Performing Lab: [facility] [address] [place] [facility] BASIC METABOLIC PANEL+MG CARBON DIOXIDE, TOTAL [MOLES/VOLU ME] IN SERUM OR PLASMA 27 22 - 29 06/29 Specimen Type: PLASMA No comment entered. Ordering Provider: HARRIS TREJO Report Released Date/Time: Jun 29, 2022 10:17 AM Reporting Lab: [facility] [address] Performing Lab: [facility] [address] [place] [facility] BASIC METABOLIC PANEL+MG CALCIUM [MASS/VOLUM E] IN SERUM OR PLASMA 9.2 8.4 - 10.2 06/29 Specimen Type: PLASMA No comment entered. Ordering Provider: HARRIS TREJO Report Released Date/Time: Jun 29, 2022 10:17 AM Reporting Lab: [facility] [address] Performing Lab: [facility] [address] [place] [facility] BASIC METABOLIC PANEL+MG MAGNESIUM [MASS/VOLUM E] IN SERUM OR PLASMA 1.9 1.6 - 2.6 06/29 Specimen Type: PLASMA No comment entered. Ordering Provider: HARRIS TREJO Report Released Date/Time: Jun 29, 2022 10:17 AM Reporting Lab: [facility] [address] Performing Lab: [facility] [address] [place] [facility] BASIC METABOLIC PANEL+MG ANION GAP IN SERUM OR PLASMA 6 5 - 15 06/29 Specimen Type: PLASMA No comment entered. Ordering Provider: HARRIS TREJO Report Released Date/Time: Jun 29, 2022 10:17 AM Reporting Lab: [facility] [address] Performing Lab: [facility] [address] [place] [facility] BASIC METABOLIC PANEL+MG GLOMERULAR FILTRATION RATE/1.73 SQ M.PREDICTED [VOLUME RATE/AREA] IN SERUM, PLASMA OR BLOOD BY CREATININE- BASED FORMULA (CKD-EPI) 87 60 06/29 Specimen Type: PLASMA No comment entered. Ordering Provider: HARRIS TREJO Report Released Date/Time: Jun 29, 2022 10:17 AM Reporting Lab: [facility] [address] Performing Lab: [facility] [address] [place] [facility] TSH W/REFLEX TO FREE T4 THYROTROPIN [UNITS/VOLU ME] IN SERUM OR PLASMA 0.62 0.35 - 4.94 06/29 Specimen Type: PLASMA No comment entered. Ordering Provider: AGUILAR AGUILLON Report Released Date/Time: Jun 29, 2022 11:24 AM Reporting Lab: [facility] [address] Performing Lab: [facility] [address] [facility] HEMOGLOBI N A1C HEMOGLOBIN A1C/HEMOGLO BIN.TOTAL IN [...] Mar 16, 2021 11:01 AM Reporting Lab: [facility] [address] Performing Lab: [facility] [address] [facility] Vital Signs Combined list of inpatient and outpatient Vital Signs from Department of Defense and Veterans Affairs, ranging from 12 months to all on record, depending upon the facility. Vital Sign Value Date Comments Source SYSTOLIC BLOOD PRESSURE 204 05/18/2023 09:15:00 [facility] DIASTOLIC BLOOD PRESSURE 72 05/18/2023 09:15:00 [facility] PULSE OXIMETRY 96% 05/18/2023 09:15:00 [facility] TEMPERATURE 97.3 05/18/2023 09:15:00 [facility] PULSE 57 05/18/2023 09:15:00 [facility] SYSTOLIC BLOOD PRESSURE 125 05/09/2023 15:00:09 [facility] DIASTOLIC BLOOD PRESSURE 70 05/09/2023 15:00:09 [facility] PULSE OXIMETRY 97% 05/09/2023 [facility]00[facility] WEIGHT 162 05/09/2023 15:00:09 [facility] BMI 31kg/m2 05/09/2023 15:00:09 [facility] PAIN 0 05/09/2023 15:00:09 [facility] TEMPERATURE 98.2 05/09/2023 15:00:09 [facility] PULSE 67 05/09/2023 15:00:09 [facility] RESPIRATION 18 05/09/2023 15:00:09 [facility] SYSTOLIC BLOOD PRESSURE 124 03/15/2023 10:08:03 [facility] DIASTOLIC BLOOD PRESSURE 73 03/15/2023 10:08:03 [facility] PULSE OXIMETRY 96% 03/15/2023 10:08:03 M [...] HCS SYSTOLIC BLOOD PRESSURE 197 01/07/2023 10:04:08 [facility] DIASTOLIC BLOOD PRESSURE 96 01/07/2023 10:04:08 [facility] H[facility] PULSE OXIMETRY 96% 01/07/2023 10:04:08 [facility] WEIGHT 162.1 01/07/2023 10:04:08 EVIN NIETO [facility] BMI 31kg/m2 01/07/2023 10:04:08 EVIN NIETO [facility] PAIN 2 01/07/2023 10:04:08 EVIN NIETO [facility] PULSE 77 01/07/2023 10:04:08 EVIN NIET[facility] RESPIRATION 18 01/07/2023 10:04:08 RAD LEE [facility] Encounters Combined list of: 1) Encounters from Department of Veterans Affairs facilities going back up to thelast 18 months. 2) Encounters from the Department of Defense facilities going back up to 280 months. Location Location Details Encounter Type Encounter Number Reason For Visit Attending Provider ADM Date DC Date Status Disposition Source [facility] [place] [id number] Diagnos is: ICD-10- CM M62.81 Muscle weaknes s (genera lized)< br/> BL[place]DIE[place] NAH 01/18 [facility] PROSTHETIC TRAING 1ST ENC [id number] Diagnos is: ICD-10- CM M62.81 Muscle weaknes s (genera lized)< br/> WIL BUSTAMANTE 01/18 [facility] Outpatient Encounter [id number] 02/21 [facility] [place] [facility] Outpatient Encounter [id number] 03/02 [facility] [place] [facility] Outpatient Encounter [id number] 03/02 [facility] ORTHC/PROS TC MGMT SBSQ ENC [id number] Diagnos is: ICD-10- CM R60.9 Edema, 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
WIL BUSTAMANTE DE G 03/16 [facility] Outpatient Encounter [id number] Diagnos is: ICD-10- CM Z00.00 Encntr for general adult medical exam w/o abnorma l finding s
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
[place] NAH 04/14 [facility] Outpatient Encounter [id number] ROLA VANEGAS CY L 04/15 [facility] HC PRO PHONE CALL 21-30 MIN [id number] Diagnos is: ICD-10- CM I10 Essenti al (primar y) hyperte nsion<b r/> MIC PLASCENCIA R 04/19 [place] [facility] [place] [facility] HC PRO PHONE CALL 21-30 MIN [id number] Diagnos is: ICD-10- CM I10 Patricia al (primar y) hyperte nsion<b r/> MIC PLASCENCIA R 05/17 [place] [facility] [place] [facility] Outpatient Encounter [id number] ROLA VANEGAS CY L 05/19 [place] [facility] [place] [facility] OFFICE O/P EST MOD 30-39 MIN [id number] Diagnos is: ICD-10- CM 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
Carlos TREJO 06/29 [facility] ADM SARSCV2 BVL 30MCG/.3ML B [id number] Diagnos is: ICD-10- CM Z23 Encount er for immuniz ation<b r/> CANDICE QUINTANA EY E 06/29 [facility] [place] [facility] Outpatient Encounter [id number] 07/01 [place] [facility] [place] [facility] Outpatient Encounter [id number] 07/12 [facility] [place] [facility] Outpatient Encounter [id number] 07/29 [place] [facility] [place] [facility] Outpatient Encounter [id number] 08/04 [place] [facility] [place] [facility] Outpatient Encounter [id number] 08/09 [facility] [place] [facility] ELECTROCAR DIOGRAM TRACING [id number] Diagnos is: ICD-10- CM I49.8 Other specifi ed cardiac arrhyth mias
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
MARGA HUBER RMA B 08/09 [facility] UNLISTED SPEC DERM SVC/PX [id number] Diagnos is: ICD-10- CM L98.9 Disorde r of the skin and subcuta neous tissue, 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
ANA MARÍA LOTT 08/09 [facility] Outpatient Encounter [id number] 08/10 [facility] Outpatient Encounter [id number] JULISSA ASHLEY SA 08/10 [facility] Outpatient Encounter [id number] Diagnos is: ICD-10- CM L82.1 Other seborrh eic keratos is
Kailash LEO OAH I 08/11 [facility] Outpatient Encounter [id number] 10/11 [facility] Outpatient Encounter [id number] DIPIKA RODRIGUES 10/15 [facility] OFFICE O/P EST LOW 20-29 MIN [id number] Diagnos is: ICD-10- CM M25.572 Pain in left ankle and joints of left foot
Carlos TREJO 10/18 [facility] ORTHC/PROS TC MGMT SBSQ ENC [id number] Diagnos is: ICD-10- CM M25.571 Pain in right ankle and joints of right foot
WIL BUSTAMANTE 10/18 [place] [facility] [place] [facility] OFF/OP EST MAY X REQ PHY/QHP [id number] Diagnos is: ICD-10- CM M25.572 Pain in left ankle and joints of left foot
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< br/> BRITANY RAMIREZ 01/07 [place] [facility] [place] [facility] Outpatient Encounter [id number] 01/10 [place] [facility] [place] [facility] Outpatient Encounter [id number] GILDARDO HERRON 01/12 [facility] [place] [facility] Outpatient Encounter [id number] 01/13 [place] [facility] [place] [facility] Outpatient Encounter [id number] Trini ELY 01/18 [place] [facility] [place] [facility] Outpatient Encounter [id number] 01/24 [place] [facility] [place] [facility] Outpatient Encounter [id number] MARKY PENDLETON 01/25 [place] [facility] [place] [facility] OFFICE O/P EST MOD 30-39 MIN [id number] Diagnos is: ICD-10- CM 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<b r/> SHANE MAYERS RA 03/17 [facility] Outpatient Encounter [id number] 03/17 [facility] Outpatient Encounter [id number] 03/26 [facility] [place] [facility] Outpatient Encounter [id number] 03/28 [facility] OFFICE O/P NEW LOW 30-44 MIN [id number] Diagnos is: ICD-10- CM 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
HOPE THORNE 05/03 [facility] OFF/OP EST MAY X REQ PHY/QHP [id number] Diagnos is: ICD-10- CM L98.9 Disorde r of the skin and subcuta neous tissue, 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
DANI CALLAHAN 05/18 [facility] Outpatient Encounter [id number] 05/18 [facility] Outpatient Encounter [id number] CRISPIN PARADA RLOS A 05/20 [facility] OFF/OP EST MAY X REQ PHY/QHP [id number] Diagnos is: ICD-10- CM Z48.02 Encount er for removal of sutures
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
VANEGAS,TRA CY L 06/09 [facility] [place] [facility] Outpatient Encounter [id number] 06/10 [facility] [place] [facility] Outpatient Encounter [id number] 06/14 [facility] OFFICE O/P EST MOD 30 MIN [id number] Diagnos is: ICD-10- CM D48.5 Neoplas m of uncerta in behavio r of skin
FELIPA,N OAH I 06/28 [facility] [place] [facility] Outpatient Encounter [id number] HEMMARVIN SAPPIOS P 06/29 [facility] Social History Combined list of available smoking, tobacco, and other social history from Department of Defense and Veterans Affairs facilities. Social History Type Response Date Comment Sourc e Tobacco smoking status [facility] of [facility] History of tobacco use MA-TOBACCO NEVER USED 11/10/2020 [facility] Plan of Care List of future care activities from Department of Veterans Affairs facilities. Additional future care activities may be listed in the Assessment and Plan section. Date/Time Care Activity Care Activity Detail Facili ty 08/09/2023 AMBULATORY - REHAB MEDICINE AMBULATORY - REHAB MEDICINE [facility]
--- OUTSIDE RECORDS SUMMARY | 2023-06-30 08:31 | XMS_ITS | Encounter Summary ---
Author Name [employer] [facility] [employer] Organization [facility] Address [address] [place] [address] Insurance Providers: All historical and current Section [...] Name Patient's Relationship to Policy [facility] ([id number]) PRESCRIPT ION GEHA May 30, 2005 [id number] [phone] SONIA MOBLEY PATIENT GEHA (SECONDARY ) PREFERRED PROVIDER ORGANIZAT ION (PPO) GEHA A&B PRIMA RY May 30, 2005 [id number] SONIA MOBLEY PATIENT GEHA (SECONDARY ) PREFERRED PROVIDER ORGANIZAT ION (PPO) GEHA A/B PRIMA RY May 30, 2005 [id number] SONIA MOBLEY PATIENT [facility] PREFERRED PROVIDER ORGANIZAT ION (PPO) DO NOT USE May 30, 2005 [id number] [phone] TONI BRITO PATIENT MEDICARE (WNR) MEDICARE (M) PART A Jan 29, 2000 PART A [id number] SONIA MOBLEY PATIENT MEDICARE (WNR) MEDICARE (M) PART B Jan 29, 2000 PART B [id number] [phone] SONIA MOBLEY PATIENT Selected Encounter This section includes the information on record at [place] for the Encounter. Date/Time Encounter Type Encounter Description Reason Provider Source Jun 29, 2023 12:19 PM Outpatient Encounter TELEPHONE TRIAGE MARVIN PARRISH IOS P IHE Encounter Template Text not used by [place] Plan of Treatment: Future Appointments (+ 6 months) and Future Tests (+/- 45 days) The Plan of Treatment section includes future care activities for the patient from all [place] [facility] This section includes future appointments and future orders which are active, pending or scheduled. Future Appointments This section includes appointments that were scheduled to occur 6 months from the date of the Encounter, up to a maximum of 20 appointments. The data comes from all [facility]. Appointment Date/Time Appointment Type Appointme nt Facility Name Aug 09, 2023 11:00 AM AMBULATORY - REHAB MEDICIN E [facility] Sep 26, 2023 09:00 AM [facility] Active, Pending, and Scheduled Orders This section includes a listing of several types of active, pending, and scheduled orders, including clinic medications orders, diagnostic test orders, procedure orders and consult orders; where the start date of the order is 45 days before the date of the Encounter or 45 days after the date of theEncounter. The data comes from all [facility]. Test Date/Time Test Type Test Details Facility Name Jun 07, 2023 03:06 PM Consult Order COMMUNITY [facility]ARE-MRI Cons Concrete [employer] [facility] Jun 09, 2023 01:13 PM Pharmacy - Clinic Medication Order [facility] Social History: Smoking Status (Most current) and Tobacco Use (All prior to encounter date) This section includes the most current, and the historical, smoking and tobacco- related health factors from the [place] facility where the Encounter took place. Current Smoking Status This section includes the most current smoking, or tobacco-related health factor, from the [place] facility where the Encounter took place. Date/Time Current Smoking Status Comment Robyn ity October 18, 2022 10:00 AM VA-TOBACCO NEVER USED [facility] Tobacco Use History This section includes a history of the smoking, or tobacco-related health factors, that were collected on or before the date of the Encounter. The data comes from the [place] facility where the Encounter took place. Date/Time Smoking Status/Tobacco Use Comment F acility September 28, 2021 09:30 AM VA-TOBACCO NEVER USED [facility] Nov 10, 2020 08:30 AM VA-TOBACCO NEVER USED [facility] Encounter Notes: All associated encounter notes This section contains the clinical notes associated to the Encounter. Date/Time Encounter Note(s) Provider Source Jun 29, 2023 12:19 PM RN PROGRESS NOTE: LOCAL TITLE: CCC: CLINICAL TRIAGE STANDARD TITLE: RN PROGRESS NOTE DATE OF NOTE: JUN 29, 2023@12:19:50 ENTRY DATE: JUN 29, 2023@12:19:50 AUTHOR: RENATE PARRISH COSIGNER: URGENCY: STATUS: COMPLETED CCC: CLINICAL TRIAGE Has ADDENDA Patient Demographics Patient Name: ALICE MOBLEY Patient Primary Address: [address] [place] [address] [address] [place] [address] Patient Primary Phone: [phone] Patient : 1935 Patient Age: 88 Caller/Recipient Relation to Patient: Self Nursing Plan and Disposition Other course(s) of action Generated msg to PACT/Provider Provided guidance for worsening symptoms: *Caller/Patient* advised to call facilities [place] Clinical Contact [facility] or seek immediate medical attention for new or worsening symptoms Alternative course of action Alternative courses of action: Call 20/12, if symptoms changes or gets worse or if she ahs not heard anything from PACT. Nurse Summary Nurse Summary: PATIENT CONCERN/DURATION/ONSET: [place] c/o having been to the [facility] on 06-25-2023 and was diagnosed with atrial fibrillation. Reports she has new medications from that ER visit that she wants to discuss with her PACT. Denies any new or worsening symptoms of chest pain, shortness of breath, fever, chills, diarrhea, nausea or vomiting. WHAT HAS PATIENT TRIED TO TREAT THE SYMPTOMS: Was in [facility] ER for cardiac issues HISTORY/PREVIOUS TREATMENT: CAD, states she was diagnosed at [facility] with atrial-fibrillation WHAT IS PATIENT GOAL FOR THE CALL: Advice for care; appointment with [facility] for ER follow-up Was [facility] considered (TELE or VVC)? n/a [employer] DISPOSITION: Recommended triage is follow-up with PACT secondary to ER visit with medication changes and new diagnosis of atrial fibrillation. MM to [facility]. agreed to this plan of care and verbalized understanding. Adair to call back 20/12, if symptoms changes or gets worse, to go to or ER, if symptoms are severe or emergent. Best contact for is [phone] (Verified). This note was created by a [address] analysis internship. Please do not alert this nurse by adding as a signer for future communications. Alerts are not monitored by this user, please reach out to [facility] instead, if indicated. Clinical Contact Center Codes Clinic/Location: [address] PHONE CCC RN /baltazar/ Renate Parrish, MS, RN Registered Nurse [address] Signed: 06/29/2023 12:19 06/29/2023 ADDENDUM STATUS: COMPLETED RTC placed /baltazar/ MICKI JAIN REGISTERED NURSE Signed: 06/29/2023 12:57 RENATE PARRISH [facility]
--- OUTSIDE RECORDS SUMMARY | 2023-06-30 08:31 | XMS_ITS | Encounter Summary ---
Author Name [facility] Organization [facility] Address [address] [place] [address] Insurance Providers: All historical and current Section [...] Patient's Relationship to Policy [facility] ([id number]) PRESCRIPT ION GEHA May 30, 2005 [id number] [phone] SONIA MOBLEY PATIENT GEHA (SECONDARY ) PREFERRED PROVIDER ORGANIZAT ION (PPO) GEHA A/B PRIMA RY May 30, 2005 [id number] SONIA MOBLEY PATIENT GEHA (SECONDARY ) PREFERRED PROVIDER ORGANIZAT ION (PPO) GEHA A&B PRIMA RY May 30, 2005 [id number] [phone] SONIA MOBLEY PATIENT [facility] PREFERRED PROVIDER ORGANIZAT ION (PPO) DO NOT USE May 30, 2005 [id number] [phone] TONI BRITO PATIENT MEDICARE (WNR) MEDICARE (M) PART A Jan 29, 2000 PART A [id number] [phone] SONIA MOBLEY PATIENT MEDICARE (WNR) MEDICARE (M) PART B Jan 29, 2000 PART B [id number] [phone] SONIA MOBLEY PATIENT Selected Encounter This section includes the [place] on [place] at [place] for the [place]counter. Date/Time Encounter Type Encounter Description Reason Provider Source Jun 28, 2023 10:40 AM OFFICE O/P EST MOD 30 MIN DERMATOLOGY ICD-10-CM D48.5 Neoplasm of uncertain behavior of skin KANA MORTENSEN Encounter Template Text not used by [place] Assessments - Encounter Diagnoses This section includes the primary and secondary diagnoses documented for the Encounter. Date/Time Primary/Secondary Diagnosis Diagnosis Name Provider Source Jun 28, 2023 12:55 PM PRIMARY Neoplasm of uncertain behavior of skin GODWIN VILLA [facility] Jun 28, 2023 12:55 PM SECONDARY Inflamed seborrheic keratosis GODWIN VILLA [facility] Jun 28, 2023 12:55 PM SECONDARY Other benign neoplasm of skin, unspecified GODWIN VILLA [facility] Plan of Treatment: Future Appointments (+ 6 months) and Future Tests (+/- 45 days) The Plan of Treatment section includes future care activities for the [place] from [facility] [place] [facility] This section includes future appointments and future orders which are active, pending or scheduled. Future Appointments This section includes appointments that were scheduled to occur 6 months from the date of the Encounter, up to a maximum of 20 appointments. The data comes from all [facility]. Appointment Date/Time Appointment Type Appointme nt Facility Name Aug 09, 2023 11:00 AM AMBULATORY - REHAB MEDICIN E [facility] Sep 26, 2023 09:00 AM AMBULATORY - SURGERY [facility] Active, Pending, and Scheduled Orders This section includes a listing of several types of active, pending, and scheduled orders, including clinic medications orders, diagnostic test orders, procedure orders and consult orders; where the start date of the order is 45 days before the date of the Encounter or 45 days after the date of theEncounter. The data comes from all [place] treatment [facility]. Test Date/Time Test Type Test Details Facility Name Jun 07, 2023 03:06 PM Consult Order COMMUNITY CARE-MRI Cons Automobile Or Truck Rental Dispatcher's Choice [facility] Jun 09, 2023 01:13 PM Pharmacy - Clinic Medication Order [facility] Social History: Smoking Status (Most current) and Tobacco Use (All prior to encounter date) This section includes the most current, and the historical, smoking and tobacco- related health factors from the [place] facility where the Encounter took place. Current Smoking Status This section includes the most current smoking, or tobacco-related health factor, from the [place] facility where the Encounter took place. Date/Time Current Smoking Status Comment Robyn merrilly October 18, 2022 10:00 AM VA-TOBACCO NEVER USED [facility] Tobacco Use History This section includes a history of the smoking, or tobacco-related health factors, that were collected on or before the date of the Encounter. The data comes from the [place] facility where the Encounter took place. Date/Time Smoking Status/Tobacco Use Comment F acility September 28, 2021 09:30 AM VA-TOBACCO NEVER USED [facility] Nov 10, 2020 08:30 AM VA-TOBACCO NEVER USED [facility] Encounter Notes: All associated encounter notes This section contains the clinical notes associated to the Encounter. Date/Time Encounter Note(s) Provider Source Jun 28, 2023 12:01 PM DERMATOLOGY ATTEND ING NOTE: LOCAL TITLE: DERMATOLOGY CLINIC NOTE STANDARD TITLE: DERMATOLOGY ATTENDING NOTE DATE OF NOTE: JUN 28, 2023@12:01 ENTRY DATE: JUN 28, 2023@12:01:14 AUTHOR: STEFF VILLA COSIGNER: URGENCY: STATUS: COMPLETED Dr. Mortensen was available during the entire clinic visit, providing medically necessary supervision, and ready to perform any service required as the environmental services manager. 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 Notes an area on her breast and her cheek she would like removed. She also has a wart on her L foot that is bothering her. Review of systems: CONST: Otherwise in baseline state of health. SKIN: As above in HPI, no additional skin concerns. OBJECTIVE: GEN: No acute distress. SKIN: FBSE (head/neck, trunk, arms, legs, hands/feet/nails) - Stuck on brown papule with white and black cysts on dermoscopy, L breast - Light brown stuck on papule on the L cheek - On the L medial plantar foot, 2 verruceous papules - 7 x 2 mm brown macule with fingerprinting, half of lesion thickened with few central globules ASSESSMENT & PLAN: # Lesion to monitor - L anterior lower leg - 7 x 2 mm brown macule with fingerprinting, half of lesion thickened with few central globules, favor lentigo, photos taken - Re-check 3 months # Verruca Vulgaris, L foot, s/p LN2 06/28/23 - Treated with LN2 # History of NMSC. NERD. - Sun protection, including daily SPF 30+, advised # Seborrheic keratoses Reassured of benign etiology. - L cheek and L breast, s/p LN2 06/28/23 - No further intervention required - Symptomatic/irritated lesions (2) were treated with 1-2 freeze-thaw cycles of liquid nitrogen cryotherapy. Counseled that lesions will become red, may blister, and then heal in 1-2 weeks. Risks including recurrence and scar discussed. RTC 3 months for wart and lesion to monitor re-check Total encounter time (including chart review, counseling, documentation, ordering of labs/meds): 30 min /baltazar/ STEFF VILLA MD RESIDENT Signed: 06/28/2023 12:49 STEFF VILLA [facility] Jun 28, 2023 11:52 AM DERMATOLOGY NURSIN G OUTPATIENT NOTE: LOCAL TITLE: DERMATOLOGY CLINIC NURSING NOTE STANDARD TITLE: DERMATOLOGY NURSING OUTPATIENT NOTE DATE OF NOTE: JUN 28, 2023@11:52 ENTRY DATE: JUN 28, 2023@11:52:13 AUTHOR: OLIVIA CALDWELL EXP COSIGNER: URGENCY: STATUS: COMPLETED Dermatology Clinic Nursing Note Observation photos uploaded to [employer]. /baltazar/ OLIVIA CALDWELL RN Signed: 06/28/2023 11:53 OLIVIA CALDWELL [facility]
--- OUTSIDE RECORDS SUMMARY | 2023-06-30 08:31 | XMS_ITS | Referral Summary ---
Author Name Unknown Organization [facility] Address [address] [place] [address] Care Team Providers Care Servomechanism Designer Name Role Phone Unavailable Primary Care Provider Unavailabl e Source Comments Patient records contain information from all sites at [facility]. For routine questions regarding patient records, call [phone] during business hours, M-F 8:00 AM - 5:00 PM Central Time. Record requests for emergency care only can be directed to [phone] at any time.[facility] Allergies No known active allergies Medications Medication [...] Atherosclerosis Extremity w Claudication Coronary Artery Disease [place] Vessel 11/30/2007 Hypertension Essential Primary 03/08/2003 Resolved Problems Problem Noted Date Diagnosed Date Resolved Date Hypertension Essential Primary 01/03/2006 08/04/2020 Overview: Hypertension Labile Immunizations Name Administration Dates Next Due H1N1 All Forms 05/13/2009 HZV (ZOSTAVAX) 08/02/2009 Influenza, Seasonal, Injectable 04/02/2002,03/23 Influenza, Unspecified 03/21/2017,03/05/2015,09/2007 PCV13 03/07/2015 Pneumococcal, Unspecified 07/02/2009 SARS-COV-2 (COVID-19) - MODERNA(Discontinued) 06/26/2020 Td (Adult), adsorbed 05/13/2009 Tdap 12/11/2014 [...] Comments Blood Pressure 151/57 08/04/2020 9:20 AM PLANT CYTOLOGIST Pulse 60 08/04/2020 9:05 AM PLANT CYTOLOGIST Temperature 36.5 ??C (97.7 ??F) 02/28/2019 9:34 AM CD T Respiratory Rate 16 02/15/2018 9:14 AM CDT Oxygen Saturation 98% 08/04/2020 9:05 AM PLANT CYTOLOGIST Inhaled Oxygen Concentration - - Weight 72.7 kg (160 lb 4.4 oz) 08/04/2020 9:05 A M PLANT CYTOLOGIST Height 160 cm (5' 2.99) 02/28/2019 9:34 AM CDT Body Mass Index 28.4 02/28/2019 9:34 AM CDT Plan of Treatment Not on file Medical Devices Implanted Type Area Stamp Classifier Device Identifier Shelf Expiration Date Model / Serial / Lot Protege Everflex 7 X 80 X 120 - [id number] [id number] Implanted:Qty: 1 on 06/27/2008 Vascular Stent ev3 Description:Device Manufactu rer - EV3. Device Status Text - [id number]. Advance Directives For more information, please contact: [phone] Documents on File Type Date Recorded Patient Sleep Lab Technologist Expl anation Advance Directives 06/27/2008 12:00 AM Leg acy document. See document viewer.
--- OUTSIDE RECORDS SUMMARY | 2023-06-30 08:31 | XMS_ITS | Clinical Summary ---
Author Name Unknown Organization [facility] Address [address] [place] [address] Care Team Providers Care Manager Intensive Care Unit Name Role Phone Unavailable Primary Care Provider Unavailabl e Source Comments Patient records contain information from all sites at [facility]. For routine questions regarding patient records, call [phone] during business hours, M-F 8:00 AM - 5:00 PM Central Time. Record requests for emergency care only can be directed to [phone] at any time.[facility] Allergies No known active allergies Medications Medication [...] Atherosclerosis Extremity w Claudication Coronary Artery Disease [place] Vessel 11/30/2007 Hypertension Essential Primary 03/08/2003 Resolved Problems Problem Noted Date Diagnosed Date Resolved Date Hypertension Essential Primary 01/03/2006 08/04/2020 Overview: Hypertension Labile Immunizations Name Administration Dates Next Due H1N1 All Forms 05/13/2009 HZV (ZOSTAVAX) 08/02/2009 Influenza, Seasonal, Injectable 04/02/2002,03/23 Influenza, Unspecified 03/21/2017,03/05/2015,09/2007 PCV13 03/07/2015 Pneumococcal, Unspecified 07/02/2009 SARS-COV-2 (COVID-19) - MODERNA(Discontinued) 06/26/2020 Td (Adult), adsorbed 05/13/2009 Tdap 12/11/2014 Family History Medical History Relation Name Comments Hypertension Aunt 1 Breast cancer Aunt 2 Paternal Heart attack Aunt 3 Maternal Rheumatic fever Father Stomach cancer Mother Lung cancer Sister Diabetes type I Son Relation Name Status Comments Aunt 1 Aunt 2 Paternal Aunt 3 Maternal Father Mother Sister Son Social History Tobacco Use Types Packs/Day Years [...] Comments Blood Pressure 151/57 08/04/2020 9:20 AM WORM RAISER Pulse 60 08/04/2020 9:05 AM WORM RAISER Temperature 36.5 ??C (97.7 ??F) 02/28/2019 9:34 AM CD T Respiratory Rate 16 02/15/2018 9:14 AM CDT Oxygen Saturation 98% 08/04/2020 9:05 AM WORM RAISER Inhaled Oxygen Concentration - - Weight 72.7 kg (160 lb 4.4 oz) 08/04/2020 9:05 A M WORM RAISER Height 160 cm (5' 2.99) 02/28/2019 9:34 AM CDT Body Mass Index 28.4 02/28/2019 9:34 AM CDT Plan of Treatment Health Maintenance Due Date Last Done Comments Pneumococcal vaccine (65+ ye ars) (2 of 2 - PPSV23 or PCV20) 05/02/2015 03/07/2015, 07/02/2009, 07/02/2009 Potassium Level 06/13/2015 06/13/2014 Sodium Level 06/13/2015 06/13/2014 Creatinine Level (Kidney Fun ction Test) 07/06/2021 07/06/2020, 03/02/2017, 12/25/2014, Additional history exists Depression Screening (Annual PHQ-2) 05/30/2023 Fall Risk Screen (Annual) 05/30/2023 DTaP,Tdap,and Td Vaccines (2 - Td or Tdap) 12/11/2024 12/11/2014, 05/13/2009 Zoster Vaccines Completed 12/19/2018, 07/28, 08/02/2009 COVID-19 Vaccine Completed 03/03/2023, , 04/01/2022, Additional history exists Influenza Vaccine Completed 03/08/2023, , 02/21/2022, Additional history exists Medical Devices Implanted Type Area Portrait Photographer Device Identifier Shelf Expiration Date Model / Serial / Lot Protege Everflex 7 X 80 X 120 - [id number] [id number] Implanted:Qty: 1 on 06/27/2008 Vascular Stent ev3 Description:Device Manufactu rer - EV3. Device Status Text - [id number]. Advance Directives For more information, please contact: [phone] Documents on File Type Date Recorded Patient Ambulance Paramedic Expl anation Advance Directives 06/27/2008 12:00 AM Leg acy document. See document viewer.
--- OUTSIDE RECORDS SUMMARY | 2023-06-30 08:31 | XMS_ITS | Clinical Summary ---
Author Name Unknown Organization [facility] Address [place], [place] [address] Care Team Providers Care Hand Stamper Name Role Phone Natalia Jameson MD Primary [...] T Respiratory Rate 16 07/07/2020 3:42 PM GUITAR TECHNICIAN Oxygen Saturation 98% 11/05/2021 2:59 PM CDT Inhaled Oxygen Concentration - - Weight 72.3 kg (159 lb 8 oz) 11/05/2021 2:59 PM CDT Height 162.6 cm (5' 4) 07/06/2020 1:06 AM GUITAR TECHNICIAN Body Mass Index 27.38 07/06/2020 1:06 AM GUITAR TECHNICIAN Plan of Treatment Health Maintenance Due Date [...] Comments Code Status Discussion: Discussed Care Teams Hand Stamper Relationship Specialty Start Date End [place] [address] PCP - General 11/05/21
--- OUTSIDE RECORDS SUMMARY | 2023-06-30 08:32 | XMS_ITS | Encounter Summary ---
Author Name Unknown Organization [facility] Address [address] [place] [address] Care Team Providers Care Public Housing Interviewer Name Role Phone Unavailable Primary Care Provider Unavailabl e Encounter Details Date Type Department Care Team (Late st Contact Info) Description 10/31/2015 Historical Ophthalmology [facility] Ole Viera Jr., M.D. [address] [place] [phone] Social History Tobacco Use Types Packs/Day Years [...] VF OU CDM Reports - EYEGEN Id: [id number] Status: Fnl documented in this encounter Plan of Treatment Not on file documented as of this encounter Visit Diagnoses Not on filedocumented in this encounter Additional Health Concerns Assessment Noted Time PHQ-9 Depression Total Score: 0 09/24/19 15 3:20 PM CDT documented as of this encounter
--- OUTSIDE RECORDS SUMMARY | 2023-06-30 08:32 | XMS_ITS | Encounter Summary ---
Author Name Unknown Organization [facility] Address [address] [place] [address] Care Team Providers Care Regrader Name Role Phone Unavailable Primary Care Provider Unavailabl e Encounter Details Date Type Department Care Team (Late st Contact Info) Description 11/08/2016 Historical Ophthalmology [facility] Ole Viera Jr., M.D. [address] [phone] Social History Tobacco Use Types Packs/Day Years [...] VF OU CDM Reports - EYEGEN Id: [id number] Status: Fnl documented in this encounter Plan of Treatment Not on file documented as of this encounter Visit Diagnoses Not on filedocumented in this encounter Additional Health Concerns Assessment Noted Time PHQ-9 Depression Total Score: 0 09/24/19 15 3:20 PM CDT documented as of this encounter
--- OUTSIDE RECORDS SUMMARY | 2023-06-30 08:32 | XMS_ITS | Encounter Summary ---
Author Name Unknown Organization [facility] Address [address] [place] [address] Care Team Providers Care Low Pressure Firer Name Role Phone Unavailable Primary Care Provider Unavailabl e Reason for Visit * Reason Comments Med Refill Encounter Details Date Type Department Care Team (Late st Contact Info) Description 10/29/2022 Refill Department of Ophthalmology in [place], [place] [address] [phone] Ole Viera Jr., M.D. [address] [phone] Med Refill Social History Tobacco Use Types [...]
--- OUTSIDE RECORDS SUMMARY | 2023-06-30 08:32 | XMS_ITS | Encounter Summary ---
Author Name Unknown Organization [facility] Address [address] [place] [address] Care Team Providers Care Architecture Manager Name Role Phone Unavailable Primary Care Provider Unavailabl e Encounter Details Date Type Department Care Team (Late st Contact Info) Description 10/29/2022 Orders Only Department of Ophthalmology in [place], [place] [address] [phone] Ole Viera Jr., M.D. [address] [phone] Social History Tobacco Use Types Packs/Day Years [...]
--- OUTSIDE RECORDS SUMMARY | 2023-06-30 08:32 | XMS_ITS | Encounter Summary ---
Author Name Unknown Organization [facility] Address [address] [place] [address] Care Team Providers Care Housekeeper Nanny Name Role Phone Unavailable Primary Care Provider Unavailabl e Reason for Referral * Outpatient (Routine) - Authorized Specialty Diagnoses / Procedures Referred By Lucy geronimo Referred To Contact Ophthalmology Ole Viera Jr., M.D. [address] [place] [phone] [facility] Referral ID Status Reason Start Date Expiration Date V isits Requested Visits Authorized [id number] Authorized 10/12/2022 10/11/2025 1 1 Reason for Visit * Reason Comments Follow-up * Outpatient (Routine) - Closed Specialty Diagnoses / Procedures Referred By Lucy geronimo Referred To Contact Ophthalmology Ole Viera Jr., M.D. [address] [place] [address] [facility] Region Referral ID Status Reason Start Date Expiration Date Visits Re quested Visits Authorized [id number] Closed 09/22/2022 09/21/2025 1 1 Encounter Details Date Type Department Care Team (Latest Contact Info) Description 10/12/2022 9:30 AM CDT Office Visit Department of Ophthalmology in [address] [phone] Ole Viera Jr., M.D. [address] [phone] Blepharitis Right (Primary Dx); Blepharitis Left; Intraocular [...]
--- OUTSIDE RECORDS SUMMARY | 2023-06-30 08:32 | XMS_ITS | Encounter Summary ---
Author Name Unknown Organization [facility] Address [address] [place] [address] Care Team Providers Care Clinical Nursing Professor Name Role Phone Unavailable Primary Care Provider Unavailabl e Reason for Referral * Outpatient (Routine) - Closed Specialty Diagnoses / Procedures Referred By Lucy geronimo Referred To Contact Ophthalmology Ole Viera Jr., M.D. [address] [place] [address] [facility] Referral ID Status Reason Start Date Expiration Date Visits Re quested Visits Authorized [id number] Closed 09/22/2022 09/21/2025 1 1 Reason for Visit * Reason Comments Eye Twitching * Appointment Request (Routine) - Closed Specialty Diagnoses / Procedures Referred By Lucy geronimo Referred To Contact Ophthalmology Referral ID Status Reason Start Date Expiration Date Visits Re quested Visits Authorized [id number] Closed 09/16/2022 09/16/2023 1 1 Encounter Details Date Type Department Care Team (Latest Contact Info) Description 09/22/2022 2:30 PM CDT Office Visit Department of Ophthalmology in [place], [place] [address] [place] [phone] Ole Viera Jr., M.D. [address], [place] [phone] Conjunctivitis Acute Left (Primary Dx) [...]
--- OUTSIDE RECORDS SUMMARY | 2023-06-30 08:32 | XMS_ITS ---
Author Name Unknown Organization [facility] Address [address] [place] [address] Care Team Providers Care Specialist Icu Name Role Phone Unavailable Unavailable Unavailable Surgery Details Not on file Complications Check Surgery Details section. Procedure Estimated Blood Loss Check Surgery Details section. Procedure Findings Check Surgery Details section. Procedure Specimens Taken Check Surgery Details section.
== END 2023-06-25 22:57 | disposition home or self-care (01) ==
LOC: AMB 06-30 08:22
PROVIDERS: PCP Chiropractor; Visit Provider Family Medicine
DX: I48.91 Unspecified atrial fibrillation (principal)
CPT/HCPCS: A0425; A0428

== ENCOUNTER 2023-09-22 14:53 | Emergency (ER) | payer MEDICARE, OTHER, SELFPAY ==
[2023-09-22 15:04] VITALS: BP 97/61; PULSE 106; RESP 16; TEMP 37.3; O2SAT 92; BMI 21.8
--- NOTE | 2023-09-22 15:06 | XR_ITS ---
Patient: ALICE MOBLEY Facility:?[facility] R[facility] Patient ID:?[id number] Site Patient ID:?[id number]. Site :?[id number] Study:?XRay-Chest 1V PORTABLE-09/22/2023 3:22:22 PM Ordering Physician:LAKSHMI Final Report: INDICATION: Cough COMPARISON: June 25, 2023 TECHNIQUE: Single view study FINDINGS: TUBES AND LINES: None. HEART AND MEDIASTINUM: The heart size is normal. The mediastinal contour appears normal for patient age.Tortuous aorta LUNGS AND PLEURAL SPACES: No definite acute focal finding. The opacity at the right base when compared to May 20, 2022 shown to represent calcified anterior rib end, a normal finding. OSSEOUS STRUCTURES: No acute osseous abnormality IMPRESSION: No evidence of active pulmonary disease when compared to studies dating back to May 20, 2022. Dictated by Helio Zelaya MD @ 09/22/2023 3:38:53 PM Signed by:?Helio Zelaya MD @09/22/2023 3:38:53 PM (Electronic Signature)
--- NOTE | 2023-09-22 15:11 | ED.GENADULT ---
HPI - General Adult General Date Seen: 09/22/23 Chief complaint: Cough Stated complaint: Cough Time Seen by Provider: 09/22/23 15:08 History of Present Illness HPI narrative: 88-year-old female with a history of hypertension (on metoprolol, lisinopril), distant history of breast cancer (is a [facility] , no history of diabetes or immunosuppression, presenting to the ER today with cough and trouble breathing. She has had a nonproductive cough ongoing for several weeks. No known sick exposures. She did contact her primary care provider who presents put her on Zyrtec last week but is not helping. She notes that the cough is still there and if anything getting worse. It is more prominent at night. Sometimes it makes her right posterior ribcage her when she coughs. No fever or chills. No production of sputum. No hemoptysis. No anterior chest pain. No abdominal pain. No swelling in her legs. She does note that the coughing is bad enough that it sometimes causes overflow incontinence so she has been having to wear a pad because of her cough. Related Data Home Medications Medication Instructions Recorded Confirmed anastrozole 1 mg tablet 1 mg PO 05/20/22 atorvastatin 80 mg tablet 80 mg PO 05/20/22 hydrochlorothiazide 25 mg tablet 12.5 mg PO 05/20/22 lisinopril 40 mg tablet 20 mg PO 05/20/22 metoprolol succinate 25 mg 50 mg PO 05/20/22 tablet,extended release 24 hr omeprazole 20 mg capsule,delayed 20 mg PO 05/20/22 release amlodipine 2.5 mg tablet 2.5 mg PO DAILY 06/25/23 06/25/23 aspirin 81 mg tablet,delayed 81 mg PO DAILY 06/25/23 06/25/23 release (Adult Low Dose Aspirin) Previous Rx's Medication Instructions Recorded benzonatate 100 mg capsule 100 mg PO TID PRN cough #20 caps 09/22/23 doxycycline hyclate 100 mg capsule 100 mg PO BID #14 caps 09/22/23 Allergies Allergy/AdvReac Type Severity Reaction Status Date / Time No Known Drug Allergies Allergy Verified 09/22/23 15:14 [facility] Social History Smoking Status: Never smoker Do you use any of these nicotine containing products: None How often do you have a drink containing alcohol: monthly or less How many standard drinks containing alcohol do you have on a typical day: 1 or 2 How often do you have six or more drinks on one occasion: Never AUDIT-C Alcohol total score: 1 Non-prescribed substance use: denies use service: Yes Exam Narrative: Exam Narrative: Constitutional: Appears well-developed and well-nourished. Alert. Conversant and tells long stories about living in [place], and also her perform her job at [employer]. Speaking full sentences. Respirations unlabored. Non toxic. HENT: Head: Atraumatic. Nose: Nose normal. No congestion or purulent drainage Mouth/Throat: Oral mucosa is clear and moist. no trismus. Pharynx normal. Tonsils symmetric. No tonsillar enlargement, erythema, or exudate. Eyes: Conjunctivae normal. EOM normal. Pupils equal, round, and reactive to light. No scleral icterus. Neck: Normal range of motion. Neck supple. No tracheal deviation present. Cardiovascular: Normal rate, regular rhythm. No gallop. No friction rub. No murmur heard. Symmetric radial artery pulses Pulmonary/Chest: Frequent dry cough. Effort normal. No stridor. No respiratory distress. No wheezes. He left middle and upper lobe rales. No rhonchi . No tenderness. Abdominal: Soft.No distension. No mass. No tenderness. No rebound. No guarding. Musculoskeletal: RUE: Normal range of motion. No tenderness. No deformity LUE: Normal range of motion. No tenderness. No deformity RLE: Normal range of motion. No edema. No tenderness. No deformity LLE: Normal range of motion. No edema. No tenderness. No deformity Lymph: No cervical adenopathy. Neurological: Alert and oriented to person, place, and time. Normal strength. CN II-VII intact. No sensory deficit. GCS eye subscore is 4. GCS verbal subscore is 5. GCS motor subscore is 6. Normal coordination Skin: Skin is warm and dry. No rash noted. No pallor. Normal capillary refill. Psychiatric: Normal mood. Normal affect. Const: Vital Signs, click to edit/add: Vital Signs - 24 hr 09/22/23 15:04 Temperature 99.1 F Pulse Rate [Right Pulse Oximeter] 106 H Respiratory Rate 16 Blood Pressure [Ri ght Upper Arm] 97/61 Pulse Oximetry 92 Oxygen Delivery Me thod Room Air Course Vital Signs Vital signs: Initial Vital Signs Temperature 99.1 F 09/22/23 15:04 Temperature Source Temporal Artery Scan 09/22/23 15:04 Pulse Rate 106 H 09/22/23 15:04 Pulse Rhythm Regular 09/22/23 15:04 Pulse Strength 3+ Normal 09/22/23 15:04 Respiratory Rate 16 09/22/23 15:04 Blood Pressure 97/61 09/22/23 15:04 Blood Pressure Mean 73 09/22/23 15:04 Blood Pressure Position Sitting 09/22/23 15:04 Pulse Oximetry 92 09/22/23 15:04 Oxygen Delivery Method Room Air 09/22/23 15:04 Vital Signs Temperature 99.1 F 09/22/23 15:04 Pulse Rate 106 H 09/22/23 15:04 Respiratory Rate 16 09/22/23 15:04 Blood Pressure 97/61 09/22/23 15:04 Pulse Oximetry 92 09/22/23 15:04 Oxygen Delivery Method Room Air 09/22/23 15:04 Temperature 99.1 F 09/22/23 15:04 Pulse Rate 106 H 09/22/23 15:04 Respiratory Rate 16 09/22/23 15:04 Blood Pressure 97/61 09/22/23 15:04 Pulse Oximetry 92 09/22/23 15:04 Oxygen Delivery Method Room Air 09/22/23 15:04 Medical Decision Making MDM Narrative Medical decision making narrative: This patient presents for evaluation of cough ongoing for several weeks. Differential here is broad including viral infections, pneumonia, bronchitis, ELIO-inhibitor and boost cough, asthma, COPD, GERD, among others. Chest x-ray is obtained and is normal by my read and by Radiology however on clinical exam she does have left upper lobe rales which I think could be consistent with pneumonia. Viral PCR is negative for coronavirus, influenza, RSV. No wheezing or bronchospasm to suggest asthma/COPD exacerbation. Although she is 88 years old, she is hemodynamically stable, mentating normally, breathing easily. There are no signs of complications of pneumonia at this point such as septic shock, bacteremia, empyema, hypoxia, respiratory failure or compromise. Supportive outpatient management is therefore indicated. I will not therefore hospitalize for further cares or IV antibiotics. This seems to be community acquired pneumonia or possibly an atypical walking pneumonia and there are no risk factors at this point for coverage of antibiotic-resistant strains. No bronchospasm, COPD, asthma. I doubt PE, dissection, acute coronary syndrome, or other worrisome etiology for patients symptoms. Patient will follow-up with primary care physician regardless of disease course within 1-3 days. Signs for return visit to ED were discussed with patient and pneumonia precautions given for home. Discussed with the patient that her cough is not improving within the next 2-4 days she might also consider discontinuing her lisinopril. If she does that she will follow-up with her primary care doctor through the [facility] for recheck and to adjust her blood pressure medication to make sure her blood pressure remains controlled. Precautions for return to the ER with any worsening cough, trouble breathing, chest pain, lightheadedness, fever, or any problems. Questions answered. Patient is agreeable to plan of care in eager for discharge. Lab Data Labs: Lab Results 09/22/23 Range/Units 15:08 SARS-CoV-2 (PCR) Negative SARS-CoV-2 (Negative) Influenza Type A (PCR) Negative PCR FLU A (Negative) Influenza Type B (PCR) Negative PCR FLU B (Negative) RSV (PCR) Negative PCR RSV (Negative) Imaging Data Chest x-ray: Attestation: I have reviewed the pertinent imaging results. My impression: Normal cardiac silhouette. Normal mediastinum. Clear lungs santos. No infiltrate. No pulmonary edema. No pleural effusion. No visible pneumothorax. Radiologist's impression: IMPRESSION: No evidence of active pulmonary disease when compared to studies dating back to May 20, 2022. Discharge Plan Discharge Clinical Impression: Cough Patient Disposition: Home, Self-Care Condition: Stable Instructions: Acute Cough (ED) Additional Instructions: As we discussed your COVID test is negative. Your chest x-ray looks good. You do have some fluid in your left lung which could be a small area of pneumonia (that is not showing up on your chest x-ray). We will treat with course of antibiotics. If your cough gets worse or if you have any other worsening symptoms such as chest pain, fever, or weakness, come back to the ER right away to be rechecked. It is also possible that your cough is side effect of your blood pressure medication lisinopril. If your cough has not improved within 3-4 days, you should stop taking lisinopril. Continue your other medications. Contact your regular doctor when you stop taking lisinopril so they can adjust your other blood pressure medications. Prescriptions: New benzonatate 100 mg capsule 100 mg PO TID PRN (Reason: cough) Qty: 20 0RF doxycycline hyclate 100 mg capsule 100 mg PO BID Qty: 14 0RF No Action anastrozole 1 mg tablet 1 mg PO Patient Comments: TAKE 1 TABLET BY MOUTH EVERY DAY atorvastatin 80 mg tablet 80 mg PO hydrochlorothiazide 25 mg tablet 12.5 mg PO lisinopril 40 mg tablet 20 mg PO omeprazole 20 mg capsule,delayed release(DR/EC) 20 mg PO metoprolol succinate 25 mg tablet extended release 24 hr 50 mg PO Patient Comments: TAKE 1 TABLET BY MOUTH EVERYDAY AT BEDTIME amlodipine 2.5 mg tablet 2.5 mg PO DAILY aspirin [Adult Low Dose Aspirin] 81 mg tablet,delayed release (DR/EC) 81 mg PO DAILY Follow Up/Referrals: Joe Ocampo DO [Referring] - Stand Alone Forms: [employer] Info Instructions
--- OUTSIDE RECORDS SUMMARY | 2023-09-22 15:44 | XMS_ITS | Encounter Summary ---
Author Name [facility] Organization [facility] Address [address] [place] [address] Insurance Providers: All historical and current Section [...] Patient's Relationship to Policy Talavera [facility] ([id number]) PRESCRIPT ION GEHA May 30, 2005 [id number] [phone] SONIA MOBLEY PATIENT GEHA (SECONDARY ) PREFERRED PROVIDER ORGANIZAT ION (PPO) GEHA A/B PRIMA RY May 30, 2005 [id number] [phone] SONIA MOBLEY PATIENT GEHA (SECONDARY ) PREFERRED PROVIDER ORGANIZAT ION (PPO) GEHA A&B PRIMA RY May 30, 2005 [id number] SONIA MOBLEY PATIENT [facility] PREFERRED PROVIDER ORGANIZAT ION (PPO) DO NOT USE May 30, 2005 [id number] [phone] TONI BRITO PATIENT MEDICARE (WNR) MEDICARE (M) PART A Jan 29, 2000 PART A [id number] [phone] SONIA MOBLEY PATIENT MEDICARE (WNR) MEDICARE (M) PART B Jan 29, 2000 PART B [id number] [phone] SONIA MOBLEY PATIENT Selected Encounter This section includes the information on record at [place] for the Encounter. Date/Time Encounter Type Encounter Description Reason Provider Source Jun 28, 2023 10:40 AM OFFICE O/P EST MOD 30 MIN DERMATOLOGY ICD-10-CM D48.5 Neoplasm of uncertain behavior of skin KANA MORTENSEN Encounter Template Text not used by [facility] Assessments - Encounter Diagnoses This section includes the primary and secondary diagnoses documented for the Encounter. Date/Time Primary/Secondary Diagnosis Diagnosis Name Provider Source Jul 07, 2023 01:12 PM PRIMARY Neoplasm of uncertain behavior of skin [facility] Jul 07, 2023 01:12 PM SECONDARY Inflamed seborrheic keratosis [facility] Jul 07, 2023 01:12 PM SECONDARY Other benign neoplasm of skin, unspecified [facility] Plan of Treatment: Future Appointments (+ 6 months) and Future Tests (+/- 45 days) The Plan of Treatment section includes future care activities for the patient from [facility] This section includes future appointments and future orders which are active, pending or scheduled. Future Appointments This section includes appointments that were scheduled to occur 6 months from the date of the Encounter, up to a maximum of 20 appointments. The data comes from all [facility] treatment [facility]. Appointment Date/Time Appointment Type Appointme nt Facility Name Jul 14, 2023 08:00 AM [facility] Jul 14, 2023 01:15 PM [facility] Aug 03, 2023 07:01 AM [facility] [place] [facility] Aug 09, 2023 10:30 AM [facility] [place]ONE [place] [facility] Aug 09, 2023 11:00 AM AMBULATORY - REH[facility] Sep 09, 2023 08:00 AM [facility] [place] [facility] [facility] Sep 12, 2023 09:30 AM [facility] [place] [facility] Sep 12, 2023 10:30 AM [facility] Sep 26, 2023 09:00 AM [facility] October 04, 2023 05:00 PM [facility] [place]ONE [place] [facility] Nov 10, 2023 10:30 AM AMBULATORY - RE[facility]AB [facility] Social History: Smoking Status (Most current) [...] [facility] Nov 10, 2020 08:30 AM [facility] NEVER USED [facility] Radiology Reports: +/- 30 days of [...] comes from all [facility] treatment facilities. Date/Time Radiology Report Provider Source Jun 24, 2023 09:13 AM MRI-BRAIN (P): ALICE MOBLEY NASREEN [id number] -[id number] F Exm Date: JUN 24, 2023@09:13 Req Phys: VITOR THORNE Loc: [facility] NEURO [facility] MATI (Req'g Img Loc: OUTSOURCE MRI Service: Unknown (Case [id number] COMPLETE) NON [facility] BRAIN (MRI Detailed) CPT:64422 Reason for Study: eval for lesion/dolichoectasia to explain L hemifacial spasm Clinical History: MRI BRAIN WITH & WITHOUT CONTRAST WITH FINE CUTS THROUGH CN VII Per Joint Commission Standards, by signing this diagnostic imaging request the ordering provider confirms they have considered patients age and recent imaging history. Did the ordering provider speak with a senior billing consultant regarding this imaging exam? 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 History of breast cancer, giant cell arteritis. Responsible provider name and phone number to notify for critical findings if other than user placing the order and pager listed below: User placing orders pager: [phone] LAST CREATININE 0.6 (03/15/23) Allergies: Patient has answered NKA Report Status: Electronically Filed Date Reported: JUL 26, 2023 Report: This is an outside Imaging study and/or report imported for continuity of patient care. This Imaging study and/or report was not reviewed or verified by a [place] Radiologist. Impression: This is an outside Imaging study and/or report imported for continuity of patient care. This Imaging study and/or report was not reviewed or verified by a [place] Radiologist. 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 Clinic Note Dermatology Problem List: FBSE 06/28/23 # Lesion to monitor - L anterior lower leg - 7 x 2 mm brown macule with fingerprinting, half of lesion thickened with few central globules, favor lentigo, photos [id number] 3 months # SKs - L cheek [...] MD RESIDENT Signed: 06/28/2023 12:49 [facility] Jun 28, 2023 11:52 AM DERMATOLOGY NURSIN G OUTPATIENT NOTE: LOCAL TITLE: DERMATOLOGY CLINIC NURSING NOTE STANDARD TITLE: DERMATOLOGY NURSING OUTPATIENT NOTE DATE OF NOTE: JUN 28, 2023@11:52 ENTRY DATE: JUN 28, 2023@11:52:13 AUTHOR: OLIVIA CALDWELL EXP COSIGNER: URGENCY: STATUS: COMPLETED Dermatology Clinic Nursing Note Observation photos uploaded to [employer] /baltazar/ OLIVIA CALDWELL RN Signed: 06/28/2023 11:53 OLIVIA CALDWELL [facility]
--- OUTSIDE RECORDS SUMMARY | 2023-09-22 15:44 | XMS_ITS | Continuity of Care Document ---
Author Name [facility] Organization [facility] Care Team Providers Care Media Analyst Name Role Phone [facility] Unavailable Unavailable Problems Combined list of problems from Department of Defense and Veterans Affairs facilities. It does not include entries that were removed or entered in error. Problem Status Onset Date Problem Type Date of Resolution Comments Source Atrial fibrillation Active Condition [place] [facility] [facility] Benign essential hypertension Active Condition [facility] CAD - Coronary artery disease Active Condition Mar 16, 2021 Entered By: DOMINIC TREJO Comment: Non-obstructive on angio 11/2007 (40% mid LAD, 40% prox LCx, 20% distal RCA, 30% PDA)Mar 16, 2021 Entered By: DOMIINC TREJO Comment: PET Myocardial Perfusion 06/2020: EF 71%; small area of mild ischemia in apical lateral wall and mild nontransmural infarction basal anterolateral wall [facility] 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 ([facility] [phone]) Active Condition Mar 26, 2021 Entered By: DOMINIC TREJO Comment: L breast, 1.2 cm, 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; ER/ID pos, HER2 neg.Mar 26, 2021 Entered By: DOMINIC TREJO Comment: pT1c, N0, M0-Stage 1AMar 26, 2021 Entered By: DOMINIC TREJO Comment: s/p lumpectomy 06/2014, radiation therapyMar 26, 2021 Entered By: DOMINIC TREJO Comment: On Anastrazole since 07/2014 [facility] Giant cell arteritis Active Condition Mar 16, 2021 Entered By: DOMINIC TREJO Comment: 2011 [facility] 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 [place] [facility] History of cholecystectomy Active Condition [place] [facility] History of total knee arthroplasty Active Condition Mar 26 Entered By: DOMINIC TRJEO Comment: R knee [facility] Long-term current use of anticoagulant Active Condition [facility] Osteopenia Active Condition Mar 26 Entered By: DOMINIC TREJO Comment: R humerus fracture 2015; T score at L femoral neck -1.3 2020 Entered By: DOMINIC TREJO Comment: Started aledronate (35mg weekly) 03/2017 [facility] Peripheral vascular disease Active Condition Nov 17, 2020 Entered By: DOMINIC TREJO Comment: s/p stenting Femoral artery, 2008 [facility] Polymyalgia rheumatica Active Condition [facility] Prediabetes ([facility] [id number]) Active Condition [facility] Sleep Apnea ([facility] [id number]) Active Condition [facility] Thoracic aortic aneurysm without rupture Active Condition [facility] Diagnosis: ICD-10-CM I48.91 Unspecified atrial fibrillation Active Diagnosis [facility] Diagnosis: ICD-10-CM I47.10 Supraventricular tachycardia, unspecified Active Diagnosis [facility] Diagnosis: ICD-10-CM G51.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, left Active Diagnosis [facility] Diagnosis: ICD-10-CM Z79.01 senior living (current) use of anticoagulants [facility] Diagnosis: ICD-10-CM Z13.6 Encounter for screening for cardiovascular disorders Active Diagnosis [facility] Diagnosis: ICD-10-CM D48.5 Neoplasm of uncertain behavior of skin Active Diagnosis [facility] Diagnosis: ICD-10-CM Z71.9 Counseling, unspecified Active Diagnosis [facility] Diagnosis: ICD-10-CM Z48.02 Encounter for removal of sutures [facility] Diagnosis: ICD-10-CM 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, inc shoulder Active Diagnosis [facility] Diagnosis: ICD-10-CM L98.9 Disorder of the skin and subcutaneous tissue, unspecified [facility] Diagnosis: ICD-10-CM C44.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 Active Diagnosis [facility] Diagnosis: ICD-10-CM 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 Diagnosis [facility] Diagnosis: ICD-10-CM M25.572 Pain in left ankle and joints of left foot Active Diagnosis [facility] Diagnosis: ICD-10-CM M25.571 Pain in right ankle and joints of right foot Active Diagnosis [facility] Diagnosis: ICD-10-CM L82.1 Other seborrheic keratosis Active Diagnosis [facility] Diagnosis: ICD-10-CM I47.1 Supraventricular tachycardia Active Diagnosis [facility] Diagnosis: ICD-10-CM I49.8 Other specified cardiac arrhythmias Active Diagnosis [facility] Diagnosis: ICD-10-CM Z23 Encounter for immunization Active Diagnosis [facility] Diagnosis: ICD-10-CM I10 Essential (primary) hypertension Active Diagnosis [facility] Diagnosis: ICD-10-CM I73.9 Peripheral vascular disease, unspecified Active Diagnosis [facility] Medications Combined list of outpatient medications from Department of Defense and Veterans Affairs facilities.Medications provided include 1) outpatient medications from the last 15 months, and 2) patient-reported medications. Medication Details Route Status Patient Instructions Prescription Expires Prescription Number Last Dispense Date Ordering Provider Order Date Order Qty Source AMLODIPINE BESYLATE 2.5MG TAB TAKE ONE TABLET BY MOUTH EVERY DAY FOR BLOOD PRESSURE ORALLY DISCONT INUED 08/11/2023 [id number] DOMINIC TREJO 2022 30 [facility] AMLODIPINE BESYLATE 2.5MG TAB TAKE ONE TABLET BY MOUTH EVERY DAY FOR BLOOD PRESSURE ORALLY DISCONT INUED (EDIT) 04/20/2023 [id number] 3 MIC LUCAS 2021 90 [facility] AMLODIPINE BESYLATE 5MG TAB TAKE ONE TABLET BY MOUTH EVERY DAY FOR BLOOD PRESSURE ORALLY DISCONT INUED 01/25/2024 [id number] 3 ORQUIDEA LEBRON 2022 90 [facility] ANASTROZOLE 1MG TAB TAKE ONE TABLET BY MOUTH EVERY DAY FOR BREAST CANCER ORALLY DISCONT INUED 02/11/2024 [id number] 3 ORQUIDEA LEBRON 2022 90 [facility] ANASTROZOLE 1MG TAB TAKE ONE TABLET BY MOUTH EVERY DAY FOR BREAST CANCER ORALLY DISCONT INUED (EDIT) 08/11/2023 [id number] 3 DOMINIC TREJO 2022 30 [facility] ANASTROZOLE 1MG TAB TAKE ONE TABLET BY MOUTH EVERY DAY ORALLY DISCONT INUED (EDIT) 03/17/2023 [id number] 3 DOMINIC TREJO 2022 90 [facility] APIXABAN 5MG TAB TAKE ONE TABLET BY MOUTH EVERY 12 HOURS TO PREVENT STROKES ORALLY ACTIVE 07/29/2024 [id number] 4 Carlos NELSON 2023 60 [place] [facility] APIXABAN 5MG TAB TAKE ONE TABLET BY MOUTH EVERY 12 HOURS TO PREVENT STROKES ORALLY DISCONT INUED (EDIT) 08/13/2023 [id number] 4 DOMINIC TREJO 2023 60 [facility] ASPIRIN 81MG TAB,CHEWABL E CHEW ONE TABLET BY MOUTH EVERY DAY ORALLY ACTIVE 03/15/2024 [id number] 4 DOMINIC TREJO 2022 108 [facility] ASPIRIN 81MG TAB,CHEWABL E CHEW ONE TABLET BY MOUTH EVERY DAY ORALLY DISCONT INUED 03/17/2023 [id number] 3 DOMINIC TREJO 2022 108 [facility] ATORVASTATI N CA 80MG TAB TAKE ONE TABLET BY MOUTH EVERY DAY FOR CHOLESTE ROL ORALLY ACTIVE 09/12/2024 [id number] DOMINIC TREJO 2023 90 [facility] ATORVASTATI N CA 80MG TAB TAKE ONE TABLET BY MOUTH EVERY DAY FOR CHOLESTE ROL ORALLY DISCONT INUED 02/11/2024 [id number] 3 ORQUIDEA LEBRON 2022 90 [facility] ATORVASTATI N CA 80MG TAB TAKE ONE TABLET BY MOUTH EVERY DAY FOR CHOLESTE ROL ORALLY DISCONT INUED (EDIT) 08/11/2023 [id number] 3 DOMINIC TREJO 2022 30 [facility] CALCIUM 250MG/VITAM IN D 125UNT TAB TAKE 2 TABLETS BY MOUTH EVERY DAY ORALLY ACTIVE 03/15/2024 [id number] 3 DOMINIC TREJO 2022 200 [facility] CALCIUM 250MG/VITAM IN D 125UNT TAB TAKE 2 TABLETS BY MOUTH EVERY DAY ORALLY DISCONT INUED 03/17/2023 [id number] 3 DOMINIC TREJO 2022 200 [facility] CETIRIZINE HCL 10MG TAB TAKE ONE TABLET BY MOUTH EVERY DAY NEEDED FOR COUGH ORALLY ACTIVE 09/12/2024 [id number] 4 DOMINIC TREJO 2023 30 [facility] CHOLECALCIF GAURAV 25MCG (1,000UNIT) TAB TAKE TWO TABLETS BY MOUTH EVERY DAY ORALLY ACTIVE 09/12/2024 [id number] 4 DOMINIC TREJO 2023 200 [facility] CHOLECALCIF GAURAV 25MCG (1,000UNIT) TAB TAKE TWO TABLETS BY MOUTH EVERY DAY ORALLY 03/17/2023 [id number] DOMINIC TREJO 2021 200 [facility] FLUTICASONE PROPIONATE 50MCG/SPRAY SOLN,NASAL, 16GM SPRAY 2 SPRAYS IN EACH NOSTRIL AT BEDTIME FOR COUGH NASAL ACTIVE 09/12/2024 [id number] 4 DOMINIC TREJO 2023 1 [facility] HYDROCHLORO THIAZIDE 12.5MG TAB TAKE ONE TABLET BY MOUTH EVERY DAY FOR BLOOD PRESSURE ORALLY DISCONT INUED (EDIT) 08/11/2023 [id number] 3 DOMINIC TREJO 2022 30 [facility] HYDROCHLORO THIAZIDE 25MG TAB TAKE ONE TABLET BY MOUTH EVERY DAY FOR BLOOD PRESSURE ORALLY ACTIVE 09/12/2024 [id number] 4 DOMINIC TREJO 2023 90 [facility] [place] [facility] HYDROCHLORO THIAZIDE 25MG TAB TAKE ONE TABLET BY MOUTH EVERY DAY FOR BLOOD PRESSURE ORALLY DISCONT INUED 02/11/2024 [id number] 3 ORQUIDEA LEBRON 2022 90 [facility] [place] [facility] HYDROCHLORO THIAZIDE 25MG TAB TAKE ONE-HALF TABLET BY MOUTH EVERY DAY ORALLY DISCONT INUED (EDIT) 03/17/2023 [id number] DOMINIC TREJO 2022 45 [place] [facility] LISINOPRIL 40MG TAB TAKE ONE TABLET BY MOUTH EVERY DAY FOR BLOOD PRESSURE ORALLY ACTIVE 09/12/2024 [id number] 4 DOMINIC TREJO 2023 90 [place] [facility] LISINOPRIL 40MG TAB TAKE ONE TABLET BY MOUTH EVERY DAY FOR BLOOD PRESSURE ORALLY DISCONT INUED 02/11/2024 [id number] 3 ORQUIDEA LEBRON 2022 90 [place] [facility] LISINOPRIL 40MG TAB TAKE ONE TABLET BY MOUTH EVERY DAY FOR BLOOD PRESSURE ORALLY DISCONT INUED (EDIT) 08/11/2023 [id number] 3 DOMINIC TREJO 2022 30 [place] [facility] LISINOPRIL 40MG TAB TAKE ONE TABLET BY MOUTH EVERY DAY FOR BLOOD PRESSURE ORALLY DISCONT INUED (EDIT) 05/18/2023 [id number] 3 MIC LUCAS 2021 90 [place] [facility] METOPROLOL SUCCINATE 25MG TAB,SA TAKE ONE TABLET BY MOUTH TWICE A DAY FOR BLOOD PRESSURE THESE ARE NEW INSTRUCT IONS ORALLY ACTIVE 07/14/2024 [id number] 4 DOMINIC TREJO 2023 180 [place] [facility] METOPROLOL SUCCINATE 50MG TAB,SA TAKE ONE TABLET BY MOUTH AT BEDTIME FOR BLOOD PRESSURE ORALLY DISCONT INUED (EDIT) 02/11/2024 [id number] 3 ORQUIDEA LEBRON 2022 90 [place] [facility] METOPROLOL SUCCINATE 50MG TAB,SA TAKE ONE TABLET BY MOUTH AT BEDTIME FOR BLOOD PRESSURE ORALLY DISCONT INUED (EDIT) 08/11/2023 [id number] 3 DOMINIC TREJO 2022 30 [place] [facility] METOPROLOL SUCCINATE 50MG TAB,SA TAKE ONE TABLET BY MOUTH AT BEDTIME ORALLY DISCONT INUED (EDIT) 06/30/2023 [id number] 3 DOMINIC TREJO 2022 90 [facility] METOPROLOL SUCCINATE 50MG TAB,SA TAKE ONE-HALF TABLET BY MOUTH AT BEDTIME ORALLY DISCONT INUED (EDIT) 03/17/2023 [id number] DOMINIC TREJO 2022 45 [facility] NITROFURANT OIN MONOHYDRATE /MACROCRYST ALLINE 100MG CAP,SA TAKE ONE CAPSULE BY MOUTH EVERY DAY DIRECTED TO PREVENT URINARY TRACT INFECTIO N AFTER SWIMMING ORALLY DISCONT INUED 10/12/2023 [id number] 3 DOMINIC TREJO 2022 15 [facility] OLOPATADINE HCL 0.1% SOLN,OPH INSTILL 1 DROP IN BOTH EYES TWICE A DAY BOTH EYES ACTIVE 03/15/2024 [id number] 3 DOMINIC TREJO 2022 15 [facility] OLOPATADINE HCL 0.1% SOLN,OPH INSTILL 1 DROP IN BOTH EYES TWICE A DAY BOTH EYES DISCONT INUED 03/17/2023 [id number] DOMINIC TREJO 2022 15 [facility] OMEPRAZOLE 20MG CAP,EC TAKE ONE CAPSULE BY MOUTH TWICE A WEEK ON AN EMPTY STOMACH, AT LEAST 30 MINUTES PRIOR TO A MEAL ORALLY ACTIVE 03/15/2024 [id number] 3 DOMINIC TREJO 2022 24 [facility] OMEPRAZOLE 20MG CAP,EC TAKE ONE CAPSULE BY MOUTH TWICE A WEEK ON AN EMPTY STOMACH, AT LEAST 30 MINUTES PRIOR TO A MEAL ORALLY DISCONT INUED 03/17/2023 [id number] 3 DOMINIC TREJO 2022 26 [facility] Immunizations Combined list of available immunizations from the Department of Defense and Veterans Affairs facilities. Immunization Series Date Given Administered By Site Reaction Lot Number CVX Code Drug Career Resource Specialist Status Comments Source INFLUENZA VACCINE, QUADRIVALENT, ADJUVANTED 2022 205 complet ed [facility] COVID-19 (MODERNA), MRNA, LNP-S, PF, 50 MCG/0.5 ML (AGES 12+ YEARS) 2022 312 complet ed [facility] COVID-19 (PFIZER), MRNA, LNP-S, BIVALENT BOOSTER, PF, 30 MCG/0.3 ML DOSE 1 2022 TAMI QUINTANA RIGHT DELTO ID [id number] 300 complet [facility] COVID-19 (MODERNA), MRNA, LNP-S, BIVALENT, PF, 50 MCG/0.5 ML OR 25MCG/0.25 ML DOSE 2021 229 complet ed [facility] INFLUENZA, UNSPECIFIED FORMULATION 2021 88 complet [facility] INFLUENZA, HIGH-DOSE, QUADRIVALENT 2021 197 complet [facility] COVID-19 (MODERNA), MRNA, LNP-S, PF, 100 MCG/0.5ML DOSE OR 50 MCG/0.25ML DOSE 2021 207 complet [facility] COVID-19 (MODERNA), MRNA, LNP-S, PF, 100 MCG/0.5ML DOSE OR 50 MCG/0.25ML DOSE 3 2020 207 complet [facility] INFLUENZA, HIGH-DOSE, QUADRIVALENT 2020 197 complet [facility] INFLUENZA, UNSPECIFIED FORMULATION 2020 88 complet [facility] COVID-19 (MODERNA), MRNA, LNP-S, PF, 100 MCG/0.5 ML DOSE 2 2020 207 complet [facility] COVID-19 (MODERNA), MRNA, LNP-S, PF, 100 MCG/0.5 ML DOSE 1 2020 207 complet [facility] INFLUENZA, INJECTABLE, QUADRIVALENT, PRESERVATIVE FREE 2019 150 complet [facility] INFLUENZA, UNSPECIFIED FORMULATION 2019 88 complet [facility] INFLUENZA, HIGH DOSE SEASONAL 2018 135 complet [facility] ZOSTER RECOMBINANT 2 2018 187 complet ed per [facility] ZOSTER RECOMBINANT 1 2018 187 complet ed per [facility] INFLUENZA, HIGH DOSE SEASONAL 2017 135 complet ed [facility] INFLUENZA, HIGH DOSE SEASONAL 2016 135 complet ed [facility] INFLUENZA, HIGH DOSE SEASONAL 2015 135 complet ed [facility] PNEUMOCOCCAL CONJUGATE PCV 13 2014 133 complet ed per [facility] INFLUENZA, UNSPECIFIED FORMULATION 2014 88 complet ed [facility] TDAP 2014 115 complet ed per [facility] INFLUENZA, SEASONAL, INJECTABLE 2010 141 complet ed [facility] INFLUENZA, SEASONAL, INJECTABLE, PRESERVATIVE FREE 2009 140 complet ed [facility] ZOSTER LIVE 2009 121 complet ed [facility] PNEUMOCOCCAL POLYSACCHARID E PPV23 2009 33 complet ed [facility] PNEUMOCOCCAL, UNSPECIFIED FORMULATION 2009 109 complet ed [facility] NOVEL INFLUENZA-H1N 1-09, ALL FORMULATIONS 2008 128 complet ed [facility] TD (ADULT), 2 LF TETANUS TOXOID, PRESERVATIVE FREE, ADSORBED 2008 09 complet [facility] INFLUENZA, UNSPECIFIED FORMULATION 2008 88 complet ed [facility] INFLUENZA, SEASONAL, INJECTABLE 2007 141 complet ed [facility] INFLUENZA, SEASONAL, INJECTABLE 2001 141 complet ed [facility] INFLUENZA, SEASONAL, INJECTABLE 2000 141 complet [facility] Results Combined list of recent chemistry, hematology and other laboratory results from Department of Defense and Veterans Affairs, ranging from 15 months to all on record, depending upon the facility. Order Name Results Value Reference Range Date Interpretation Specimen Comments Source HEMOGLOBI N A1C HEMOGLOBIN A1C/HEMOGLO BIN.TOTAL IN BLOOD 5.8 4.0 - 6.0 09/11 Specimen Type: BLOOD Comment: Values obtained from A1C measurement s can vary. For typical A1C assays, a reported value of 7.0 could actually be between 6.7 and 7.3 if measured by a reference method. A reported value of 9.0 could actually be between 8.7 and 9.3. Ref: http://www. ngsp.org/[place] Pdata.asp Ordering Provider: HARRIS TREJO Report Released Date/Time: Mar 17, 2023 04:58 PM Reporting Lab: [facility] [address] Performing Lab: [facility] [address] [place] [facility] LIPID PANEL,NON -FASTING CHOLESTEROL [MASS/VOLUM E] IN SERUM OR PLASMA 210 <199 - 199 09/11 H Specimen Type: PLASMA No comment entered. Ordering Provider: HARRIS TREJO Report Released Date/Time: Mar 17, 2023 04:58 PM Reporting Lab: [facility] [address] Performing Lab: [facility] [address] [place] [facility] LIPID PANEL,NON -FASTING CHOLESTEROL IN HDL [MASS/VOLUM E] IN SERUM OR PLASMA 63 50 09/11 Specimen Type: PLASMA No comment entered. Ordering Provider: HARRIS TREJO Report Released Date/Time: Mar 17, 2023 04:58 PM Reporting Lab: [facility] [address] Performing Lab: [facility] [address] [place] [facility] LIPID PANEL,NON -FASTING CHOLESTEROL IN LDL [MASS/VOLUM E] IN SERUM OR PLASMA BY CALCULATION 121 <99 - 99 09/11 H Specimen Type: PLASMA No comment entered. Ordering Provider: HARRIS TREJO Report Released Date/Time: Mar 17, 2023 04:58 PM Reporting Lab: [facility] [address] Performing Lab: [facility] [address] [place] [facility] LIPID PANEL,NON -FASTING CHOLESTEROL IN VLDL [MASS/VOLUM E] IN SERUM OR PLASMA BY CALCULATION 26 <29 - 29 09/11 Specimen Type: PLASMA No comment entered. Ordering Provider: HARRIS TREJO Report Released Date/Time: Mar 17, 2023 04:58 PM Reporting Lab: [facility] [address] Performing Lab: [facility] [address] [place] [facility] LIPID PANEL,NON -FASTING CHOLESTEROL NON HDL [MASS/VOLUM E] IN SERUM OR PLASMA 147 <129 - 129 09/11 H Specimen Type: PLASMA No comment entered. Ordering Provider: HARRIS TREJO Report Released Date/Time: Mar 17, 2023 04:58 PM Reporting Lab: [facility] [address] Performing Lab: [facility] [address] [place] [facility] LIPID PANEL,NON -FASTING TRIGLYCERID E [MASS/VOLUM E] IN SERUM OR PLASMA 132 <149 - 149 09/11 Specimen Type: PLASMA No comment entered. Ordering Provider: HARRIS TREJO Report Released Date/Time: Mar 17, 2023 04:58 PM Reporting Lab: [facility] [address] Performing Lab: [facility] [address] [place] [facility] BASIC METABOLIC PANEL+MG CREATININE [MASS/VOLUM E] IN SERUM OR PLASMA 0.6 0.5 - 1.0 09/11 Specimen Type: PLASMA No comment entered. Ordering Provider: HARRIS TREJO Report Released Date/Time: Mar 17, 2023 04:58 PM Reporting Lab: [facility] [address] Performing Lab: [facility] [address] [place] [facility] BASIC METABOLIC PANEL+MG UREA NITROGEN [MASS/VOLUM E] IN SERUM OR PLASMA 7 7 - 20 09/11 Specimen Type: PLASMA No comment entered. Ordering Provider: HARRIS TREJO Report Released Date/Time: Mar 17, 2023 04:58 PM Reporting Lab: [facility] [address] Performing Lab: [facility] [address] [place] [facility] BASIC METABOLIC PANEL+MG GLUCOSE [MASS/VOLUM E] IN SERUM OR PLASMA 98 70 - 100 09/11 Specimen Type: PLASMA No comment entered. Ordering Provider: HARRIS TREJO Report Released Date/Time: Mar 17, 2023 04:58 PM Reporting Lab: [facility] [address] Performing Lab: [facility] [address] [place] [facility] BASIC METABOLIC PANEL+MG SODIUM [MOLES/VOLU ME] IN SERUM OR PLASMA 139 136 - 145 09/11 Specimen Type: PLASMA No comment entered. Ordering Provider: HARRIS TREJO Report Released Date/Time: Mar 17, 2023 04:58 PM Reporting Lab: [facility] [address] Performing Lab: [facility] [address] [place] [facility] BASIC METABOLIC PANEL+MG POTASSIUM [MOLES/VOLU ME] IN SERUM OR PLASMA 3.5 3.5 - 5.1 09/11 Specimen Type: PLASMA No comment entered. Ordering Provider: HARRIS TREJO Report Released Date/Time: Mar 17, 2023 04:58 PM Reporting Lab: [facility] [address] Performing Lab: [facility] [address] [place] [facility] BASIC METABOLIC PANEL+MG CHLORIDE [MOLES/VOLU ME] IN SERUM OR PLASMA 104 98 - 107 09/11 Specimen Type: PLASMA No comment entered. Ordering Provider: HARRIS TREJO Report Released Date/Time: Mar 17, 2023 04:58 PM Reporting Lab: [facility] [address] Performing Lab: [facility] [address] [place] [facility] BASIC METABOLIC PANEL+MG CARBON DIOXIDE, TOTAL [MOLES/VOLU ME] IN SERUM OR PLASMA 29 22 - 29 09/11 Specimen Type: PLASMA No comment entered. Ordering Provider: HARRIS TREJO Report Released Date/Time: Mar 17, 2023 04:58 PM Reporting Lab: [facility] [address] Performing Lab: [facility] [address] [place] [facility] BASIC METABOLIC PANEL+MG CALCIUM [MASS/VOLUM E] IN SERUM OR PLASMA 8.9 8.4 - 10.2 09/11 Specimen Type: PLASMA No comment entered. Ordering Provider: HARRIS TREJO Report Released Date/Time: Mar 17, 2023 04:58 PM Reporting Lab: [facility] [address] Performing Lab: [facility] [address] [place] [facility] BASIC METABOLIC PANEL+MG MAGNESIUM [MASS/VOLUM E] IN SERUM OR PLASMA 1.8 1.6 - 2.6 09/11 Specimen Type: PLASMA No comment entered. Ordering Provider: HARRIS TREJO Report Released Date/Time: Mar 17, 2023 04:58 PM Reporting Lab: [facility] [address] Performing Lab: [facility] [address] [place] [facility] BASIC METABOLIC PANEL+MG ANION GAP IN SERUM OR PLASMA 6 5 - 15 09/11 Specimen Type: PLASMA No comment entered. Ordering Provider: HARRIS TREJO Report Released Date/Time: Mar 17, 2023 04:58 PM Reporting Lab: [facility] [address] Performing Lab: [facility] [address] [place] [facility] BASIC METABOLIC PANEL+MG GLOMERULAR FILTRATION RATE/1.73 SQ M.PREDICTED [VOLUME RATE/AREA] IN SERUM, PLASMA OR BLOOD BY CREATININE- BASED FORMULA (CKD-EPI 2020) 86 60 09/11 Specimen Type: PLASMA No comment entered. Ordering Provider: HARRIS TREJO Report Released Date/Time: Mar 17, 2023 04:58 PM Reporting Lab: [facility] [address] Performing Lab: [facility] [address] [place] [facility] CREATININ E(INCLUDE S EGFR) CREATININE [MASS/VOLUM E] IN SERUM OR PLASMA 0.7 0.5 - 1.0 08/08 Specimen Type: PLASMA No comment entered. Ordering Provider: CHANG NELSON Report Released Date/Time: Jul 29, 2023 11:58 AM Reporting Lab: [facility] [address] Performing Lab: [facility] [address] [place] [facility] CREATININ E(INCLUDE S EGFR) GLOMERULAR FILTRATION RATE/1.73 SQ M.PREDICTED [VOLUME RATE/AREA] IN SERUM, PLASMA OR BLOOD BY CREATININE- BASED FORMULA (CKD-EPI 2020) 83 60 08/08 Specimen Type: PLASMA No comment entered. Ordering Provider: CHANG NELSON IE A Report Released Date/Time: Jul 29, 2023 11:58 AM Reporting Lab: [facility] [address] Performing Lab: [facility] [address] [place] [facility] AST/SGOT ASPARTATE AMINOTRANSF ERASE [ENZYMATIC ACTIVITY/VO LUME] IN SERUM OR PLASMA 28 <34 - 34 08/08 Specimen Type: PLASMA No comment entered. Ordering Provider: CHANG NELSON IE A Report Released Date/Time: Jul 29, 2023 11:58 AM Reporting Lab: [facility] [address] Performing Lab: [facility] [address] [place] [facility] CBC LEUKOCYTES [#/VOLUME] IN BLOOD BY AUTOMATED COUNT 5.92 4.0 - 11.0 08/08 Specimen Type: BLOOD No comment entered. Ordering Provider: CHANG NELSON IE A Report Released Date/Time: Jul 29, 2023 11:58 AM Reporting Lab: [facility] [address] Performing Lab: [facility] [address] [place] [facility] CBC ERYTHROCYTE S [#/VOLUME] IN BLOOD BY AUTOMATED COUNT 4.72 4.0 - 5.4 08/08 Specimen Type: BLOOD No comment entered. Ordering Provider: CHANG NELSON IE A Report Released Date/Time: Jul 29, 2023 11:58 AM Reporting Lab: [facility] [address] Performing Lab: [facility] [address] [place] [facility] CBC HEMOGLOBIN [MASS/VOLUM E] IN BLOOD 13.9 11.5 - 16 08/08 Specimen Type: BLOOD No comment entered. Ordering Provider: CHANG NELSON IE A Report Released Date/Time: Jul 29, 2023 11:58 AM Reporting Lab: [facility] [address] Performing Lab: [facility] [address] [place] [facility] CBC HEMATOCRIT [VOLUME FRACTION] OF BLOOD BY AUTOMATED COUNT 40.3 34.5 - 48 08/08 Specimen Type: BLOOD No comment entered. Ordering Provider: CHANG NELSON IE A Report Released Date/Time: Jul 29, 2023 11:58 AM Reporting Lab: [facility] [address] Performing Lab: [facility] [address] [place] [facility] CBC MCV [ENTITIC VOLUME] BY AUTOMATED COUNT 85.4 80 - 100 08/08 Specimen Type: BLOOD No comment entered. Ordering Provider: CHANG NELSON IE A Report Released Date/Time: Jul 29, 2023 11:58 AM Reporting Lab: [facility] [address] Performing Lab: [facility] [address] [place] [facility] CBC MCH [ENTITIC MASS] BY AUTOMATED COUNT 29.4 27 - 33 08/08 Specimen Type: BLOOD No comment entered. Ordering Provider: CHANG NELSON IE A Report Released Date/Time: Jul 29, 2023 11:58 AM Reporting Lab: [facility] [address] Performing Lab: [facility] [address] [place] [facility] CBC MCHC [MASS/VOLUM E] BY AUTOMATED COUNT 34.5 32.0 - 37.5 08/08 Specimen Type: BLOOD No comment entered. Ordering Provider: CHANG NELSON IE A Report Released Date/Time: Jul 29, 2023 11:58 AM Reporting Lab: [facility] [address] Performing Lab: [facility] [address] [place] [facility] CBC PLATELETS [#/VOLUME] IN BLOOD BY AUTOMATED COUNT 211 150 - 400 08/08 Specimen Type: BLOOD No comment entered. Ordering Provider: CHANG NELSON IE A Report Released Date/Time: Jul 29, 2023 11:58 AM Reporting Lab: [facility] [address] Performing Lab: [facility] [address] [place] [facility] CBC PLATELET MEAN VOLUME [ENTITIC VOLUME] IN BLOOD BY AUTOMATED COUNT 9.2 7.4 - 10.4 08/08 Specimen Type: BLOOD No comment entered. Ordering Provider: CHANG NELSON IE A Report Released Date/Time: Jul 29, 2023 11:58 AM Reporting Lab: [facility] [address] Performing Lab: [facility] [address] [place] [facility] CBC ERYTHROCYTE DISTRIBUTIO N WIDTH [RATIO] BY AUTOMATED COUNT 13.3 11.5 - 14.5 08/08 Specimen Type: BLOOD No comment entered. Ordering Provider: CHANG NELSON IE A Report Released Date/Time: Jul 29, 2023 11:58 AM Reporting Lab: [facility] [address] Performing Lab: [facility] [address] [place] [facility] ALT/SGPT ALANINE AMINOTRANSF ERASE [ENZYMATIC ACTIVITY/VO LUME] IN SERUM OR PLASMA 21 <55 - 55 08/08 Specimen Type: PLASMA No comment entered. Ordering Provider: CHANG NELSON IE A Report Released Date/Time: Jul 29, 2023 11:58 AM Reporting Lab: [facility] [address] Performing Lab: [facility] [address] [place] [facility] BASIC METABOLIC PANEL+MG CREATININE [MASS/VOLUM E] IN SERUM OR PLASMA 0.6 0.5 - 1.0 03/15 Specimen Type: PLASMA No comment entered. Ordering Provider: MARIMAR LEBRON Report Released Date/Time: Feb 10, 2023 09:08 AM Reporting Lab: [facility] [address] Performing Lab: [facility] [address] [place] [facility] BASIC METABOLIC PANEL+MG UREA NITROGEN [MASS/VOLUM E] IN SERUM OR PLASMA 9 7 - 20 03/15 Specimen Type: PLASMA No comment entered. Ordering Provider: MARIMAR LEBRON Report Released Date/Time: Feb 10, 2023 09:08 AM Reporting Lab: [facility] [address] Performing Lab: [facility] [address] [place] [facility] BASIC METABOLIC PANEL+MG GLUCOSE [MASS/VOLUM E] IN SERUM OR PLASMA 106 70 - 100 03/15 H Specimen Type: PLASMA No comment entered. Ordering Provider: MARIMAR LEBRON Report Released Date/Time: Feb 10, 2023 09:08 AM Reporting Lab: [facility] [address] Performing Lab: [facility] [address] [place] [facility] BASIC METABOLIC PANEL+MG SODIUM [MOLES/VOLU ME] IN SERUM OR PLASMA 138 136 - 145 03/15 Specimen Type: PLASMA No comment entered. Ordering Provider: MARIMAR LEBRON Report Released Date/Time: Feb 10, 2023 09:08 AM Reporting Lab: [facility] [address] Performing Lab: [facility] [address] [place] [facility] BASIC METABOLIC PANEL+MG POTASSIUM [MOLES/VOLU ME] IN SERUM OR PLASMA 3.4 3.5 - 5.1 03/15 L Specimen Type: PLASMA No comment entered. Ordering Provider: MARIMAR LEBRON Report Released Date/Time: Feb 10, 2023 09:08 AM Reporting Lab: [facility] [address] Performing Lab: [facility] [address] [place] [facility] BASIC METABOLIC PANEL+MG CHLORIDE [MOLES/VOLU ME] IN SERUM OR PLASMA 103 98 - 107 03/15 Specimen Type: PLASMA No comment entered. Ordering Provider: MARIMAR LEBRON Report Released Date/Time: Feb 10, 2023 09:08 AM Reporting Lab: [facility] [address] Performing Lab: [facility] [address] [place] [facility] BASIC METABOLIC PANEL+MG CARBON DIOXIDE, TOTAL [MOLES/VOLU ME] IN SERUM OR PLASMA 28 22 - 29 03/15 Specimen Type: PLASMA No comment entered. Ordering Provider: MARIMAR LEBRON Report Released Date/Time: Feb 10, 2023 09:08 AM Reporting Lab: [facility] [address] Performing Lab: [facility] [address] [place] [facility] BASIC METABOLIC PANEL+MG CALCIUM [MASS/VOLUM E] IN SERUM OR PLASMA 9.3 8.4 - 10.2 03/15 Specimen Type: PLASMA No comment entered. Ordering Provider: MARIMAR LEBRON Report Released Date/Time: Feb 10, 2023 09:08 AM Reporting Lab: [facility] [address] Performing Lab: [facility] [address] [place] [facility] BASIC METABOLIC PANEL+MG MAGNESIUM [MASS/VOLUM E] IN SERUM OR PLASMA 1.8 1.6 - 2.6 03/15 Specimen Type: PLASMA No comment entered. Ordering Provider: MARIMAR LEBRON Report Released Date/Time: Feb 10, 2023 09:08 AM Reporting Lab: [facility] [address] Performing Lab: [facility] [address] [place] [facility] BASIC METABOLIC PANEL+MG ANION GAP IN SERUM OR PLASMA 7 5 - 15 03/15 Specimen Type: PLASMA No comment entered. Ordering Provider: MARIMAR LEBRON Report Released Date/Time: Feb 10, 2023 09:08 AM Reporting Lab: [facility] [address] Performing Lab: [facility] [address] [place] [facility] BASIC METABOLIC PANEL+MG GLOMERULAR FILTRATION RATE/1.73 SQ M.PREDICTED [VOLUME RATE/AREA] IN SERUM, PLASMA OR BLOOD BY CREATININE- BASED FORMULA (CKD-EPI 2020) 86 60 03/15 Specimen Type: PLASMA No comment entered. Ordering Provider: MARIMAR LEBRON Report Released Date/Time: Feb 10, 2023 09:08 AM Reporting Lab: [facility] [address] Performing Lab: [facility] [address] [place] [facility] TSH W/REFLEX TO FREE T4 THYROTROPIN [UNITS/VOLU ME] IN SERUM OR PLASMA 0.61 0.35 - 4.94 03/15 Specimen Type: PLASMA No comment entered. Ordering Provider: HARRIS TREJO Report Released Date/Time: Mar 16, 2022 11:04 AM Reporting Lab: [facility] [address] Performing Lab: [facility] [address] [facility] Vital Signs Combined list of inpatient and outpatient Vital Signs from Department of Defense and Veterans Affairs, ranging from 12 months to all on record, depending upon the facility. Vital Sign Value Date Comments Source Encounters Combined list of: 1) Encounters from Department of Veterans Affairs facilities going back up to thelast 18 months. 2) Encounters from the Department of Defense facilities going back up to 280 months. Location Location Details Encounter Type Encounter Number Reason For Visit Attending Provider ADM Date DC Date Status Disposition Source [facility] PRO PHONE CALL 5-10 MIN [id number] Diagnos is: ICD-10- CM Z71.9 City Magistrate ing, 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
BRANDIE ODONNELL 04/14 [facility] Outpatient Encounter [id number] ROLA VANEGAS 04/15 [facility] PRO PHONE CALL 21-30 MIN [id number] Diagnos is: ICD-10- CM I10 Essenti al (primar y) hyperte nsion<b r/> MIC PLASCENCIA 04/19 [facility] PRO PHONE CALL 21-30 MIN [id number] Diagnos is: ICD-10- CM I10 Essenti al (primar y) hyperte nsion<b r/> MIC PLASCENCIA 05/17 [facility] [place] [facility] Outpatient Encounter [id number] ROLA VANEGAS CY L 05/19 [facility] [place] [facility] OFFICE O/P EST MOD 30-39 MIN [id number] Diagnos is: ICD-10- CM 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
Carlos TREJO 06/29 [facility] ADM SARSCV2 BVL 30MCG/.3ML B [id number] Diagnos is: ICD-10- CM Z23 Encount er for immuniz ation<b r/> CANDICE QUINTANA EY E 06/29 [facility] Outpatient Encounter [id number] 07/01 [facility] [place] [facility] Outpatient Encounter [id number] 07/12 [facility] [place] [facility] Outpatient Encounter [id number] 07/29 [facility] [place] [facility] Outpatient Encounter [id number] 08/04 [facility] [place] [facility] Outpatient Encounter [id number] 08/09 [facility] ELECTROCAR DIOGRAM TRACING [id number] Diagnos is: ICD-10- CM I49.8 Other specifi ed cardiac arrhyth mias
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
MARGA HUBER RMA B 08/09 [facility] UNLISTED SPEC DERM SVC/PX [id number] Diagnos is: ICD-10- CM L98.9 Disorde r of the skin and subcuta neous tissue, 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
ANA MARÍA LOTT Carlos 08/09 [facility] Outpatient Encounter [id number] 08/10 [facility] Outpatient Encounter [id number] JULISSA ASHLEY SA M 08/10 [facility] Outpatient Encounter [id number] Diagnos is: ICD-10- CM L82.1 Other seborrh eic keratos is
Kailash LEO OAH I 08/11 [facility] Outpatient Encounter [id number] 10/11 [facility] Outpatient Encounter [id number] DIPIKA RODRIGUES 10/15 [facility] OFFICE O/P EST LOW 20-29 MIN [id number] Diagnos is: ICD-10- CM M25.572 Pain in left ankle and joints of left foot
Carlos TREJO ILL M 10/18 [facility] ORTHC/PROS TC MGMT SBSQ ENC [id number] Diagnos is: ICD-10- CM M25.571 Pain in right ankle and joints of right foot
WIL BUSTAMANTE DE G 10/18 [facility] OFF/OP EST MAY X REQ PHY/QHP [id number] Diagnos is: ICD-10- CM M25.572 Pain in left ankle and joints of left foot
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< br/> BRITANY RAMIREZ 01/07 [place] [facility] [place] [facility] Outpatient Encounter [id number] 01/10 [place] [facility] [place] [facility] Outpatient Encounter [id number] GILDARDO HERRON 01/12 [place] [facility] [place] [facility] Outpatient Encounter [id number] 01/13 [place] [facility] [place] [facility] Outpatient Encounter [id number] Trini ELY 01/18 [place] [facility] [place] [facility] Outpatient Encounter [id number] 01/24 [place] [facility] [place] [facility] Outpatient Encounter [id number] MARKY PENDLETON 01/25 [place] [facility] [place] [facility] OFFICE O/P EST MOD 30-39 MIN [id number] [id number] Diagnos is: ICD-10- CM 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
HOPE THORNE 05/03 [facility] OFF/OP EST MAY X REQ PHY/QHP [id number] Diagnos is: ICD-10- CM L98.9 Disorde r of the skin and subcuta neous tissue, 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
DANI CALLAHAN 05/18 [facility] Outpatient Encounter [id number] 05/18 [facility] Outpatient Encounter [id number] CRISPIN PARADA RLOS A 05/20 [facility] OFF/OP EST MAY X REQ PHY/QHP [id number] Diagnos is: ICD-10- CM Z48.02 Encount er for removal of sutures
POST,CRYST AL L 05/31 [facility] Outpatient Encounter [id number] 05/31 [facility] Outpatient Encounter [id number] 06/08 [facility] Outpatient Encounter [id number] 06/09 [facility] HC PRO PHONE CALL 11-20 MIN [id number] Diagnos is: ICD-10- CM Z71.9 City Magistrate ing, 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
ROLA VANEGAS CY L 06/09 [facility] [place] [facility] Outpatient Encounter [id number] 06/10 [facility] [place] [facility] Outpatient Encounter [id number] 06/14 [facility] [place] [facility] Outpatient Encounter [id number] 06/25 [facility] OFFICE O/P EST MOD 30 MIN [id number] Diagnos is: ICD-10- CM D48.5 Neoplas m of uncerta in behavio r of skin
FELIPA,N OAH I 06/28 [facility] Outpatient Encounter [id number] HEMMARVIN SAPPIOS P 06/29 [facility] Outpatient Encounter [id number] 06/30 [facility] Outpatient Encounter [id number] 07/12 [facility] Outpatient Encounter [id number] 07/12 [facility] ECG MONIT/REPR T UP TO 48 HRS [id number] Diagnos is: ICD-10- CM Z13.6 Encount er for screeni ng for cardiov ascular disorde rs
Carlos TREJO ILL M 07/14 [facility] OFFICE O/P EST MOD 30 MIN [id number] Diagnos is: ICD-10- CM I48.91 Unspeci fied atrial fibrill ation<b r/> Carlos TREJO ILL M 07/14 [facility] [place] [facility] Outpatient Encounter [id number] 07/15 [facility] [place] [facility] QNHP OL DIG ASSMT&MGMT 11-20 [id number] Diagnos is: ICD-10- CM Z79.01 senior living (curren t) use of anticoa gulants
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
HOPE THORNE E 08/08 [facility] [place] [facility] EXT ECG>7D<15D REV&INTERP J [id number] Diagnos is: ICD-10- CM I47.10 Suprave ntricul ar tachyca rdia, 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
ERIN,BRADL EY A 08/08 [facility] [place] [facility] Outpatient Encounter [id number] 08/08 [facility] [place] [facility] Outpatient Encounter [id number] 08/13 [place] [facility] [place] [facility] Outpatient Encounter [id number] 08/29 [place] [facility] [place] [facility] Outpatient Encounter [id number] 08/31 [place] [facility] [place] [facility] Outpatient Encounter [id number] 09/01 [place] [facility] [place] [facility] OFFICE O/P EST MOD 30 MIN [id number] Diagnos is: ICD-10- CM I48.91 Unspeci fied atrial fibrill ation<b r/> Carlos TREJO 09/11 [facility] [place] [facility] Outpatient Encounter [id number] 09/13 [place] [facility] [place] [facility] Outpatient Encounter [id number] 09/18 [place] [facility] [place] [facility] Outpatient Encounter [id number] 09/21 [place] [facility] Social History Combined list of available smoking, tobacco, and other social history from Department of Defense and Veterans Affairs facilities. Social History Type Response Date Comment Sour e Tobacco smoking status [facility] NEVER USED [facility] of tobacco use [place] NEVER USED 10/18/2022 [facility] History of tobacco use [place] NEVER USED 09/28/2021 [facility] History of tobacco use [place] NEVER USED 11/10/2020 [facility] Plan of Care List of future care activities from Department of Veterans Affairs facilities. Additional future care activities may be listed in the Assessment and Plan section. Date/Time Care Activity Care Activity Detail Facili ty 09/26/2023 AMBULATORY - SURGERY AMBULATORY - SURGERY [facility] 10/04/2023 AMBULATORY - NONE [facility] NONE [facility] 11/10/2023 AMBULATORY - REHAB MEDICINE AMBULATORY - REHAB MEDICINE [facility]
--- OUTSIDE RECORDS SUMMARY | 2023-09-22 15:45 | XMS_ITS | Encounter Summary ---
Author Name [facility] of [facility] Organization [facility] of [facility] Address [address] [place] [address] Insurance Providers: All historical and current Section [...] Name Patient's Relationship to Policy Talavera [facility] ([id number]) PRESCRIPT ION GEHA May 30, 2005 [id number] [phone] SONIA MOBLEY PATIENT GEHA (SECONDARY ) PREFERRED PROVIDER ORGANIZAT ION (PPO) GEHA A&B PRIMA RY May 30, 2005 [id number] [phone] SONIA MOBLEY PATIENT GEHA (SECONDARY ) PREFERRED PROVIDER ORGANIZAT ION (PPO) GEHA A/B PRIMA RY May 30, 2005 [id number] SONIA MOBLEY PATIENT [facility] PREFERRED PROVIDER ORGANIZAT ION (PPO) DO NOT USE May 30, 2005 [id number] [phone] TONI BRITO PATIENT MEDICARE (WNR) MEDICARE (M) PART B Jan 29, 2000 PART B [id number] SONIA MOBLEY PATIENT MEDICARE (WNR) MEDICARE (M) PART A Jan 29, 2000 PART A [id number] [phone] SONIA MOBLEY PATIENT Selected Encounter This section includes the information on record at [place] for the Encounter. 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 Date/Time Primary/Secondary Diagnosis Diagnosis Name Provider Source Jul 29, 2023 12:13 PM PRIMARY prison (current) use of anticoagulants SUZIE NELSON [facility] Jul 29, 2023 12:13 PM SECONDARY Encounter for therapeutic drug level monitoring SUZIE NELSON [facility] Jul 29, 2023 12:13 PM SECONDARY Unspecified atrial fibrillation SUZIE NELSON [facility] Plan of Treatment: Future Appointments (+ 6 months) and Future Tests (+/- 45 days) The Plan of Treatment section includes future care activities for the patient from [facility] [place] [facility] This section includes future appointments and future orders which are active, pending or scheduled. Future Appointments This section includes appointments that were scheduled to occur 6 months from the date of the Encounter, up to a maximum of 20 appointments. The data comes from all [facility]. Appointment Date/Time Appointment Type Appointme nt Facility Name Aug 03, 2023 07:01 AM AM[facility]ORY - [place]ONE [place] [facility] Aug 09, 2023 10:30 AM [facility] Aug 09, 2023 11:00 AM AMBULATORY - REHAB MEDICIN E [facility] Sep 09, 2023 08:00 AM [facility] [place] [facility] Sep 12, 2023 09:30 AM AM[facility]ORY - NONE [place] [facility] Sep 12, 2023 10:30 AM [place] [facility] Sep 26, 2023 09:00 AM [place] [facility] October 04, 2023 05:00 PM [facility] Nov 10, 2023 10:30 AM AMBULATORY - REHAB MEDICIN E [facility] Lab Results: +/- 30 days of the encounter This section includes the Chemistry and Hematology Lab Results [facility] record with [facility] for the [facility]. Radiology Reports and Pathology Reports are provided separately, in subsequent sections. Lab Results This section contains the Chemistry/Hematology Results that were resulted 30 days before or 30 daysafter the date of the Encounter. Date/Time Source Result Type Result - Unit Interpretation Reference Range Comment Aug 09, 2023 08:50 AM [facility] CREATININE(INCLUDES EGFR) Specimen Type: PLASMA No comment entered. Ordering Provider: SUZIE NELSON Report Released Date/Time: Jul 29, 2023 11:58 AM Reporting Lab: [facility] [id number] Performing Lab: [facility] [id number] CREATININE 0.7 0.5-1.0 .CREAT EGFR(CKD-EPI ) 83 >60 Aug 09, 2023 08:50 AM [facility] AST/SGOT Specimen Type: PLASMA No comment entered. Ordering Provider: SUZIE NELSON Report Released Date/Time: Jul 29, 2023 11:58 AM Reporting Lab: [facility] [id number] Performing Lab: [facility] [phone] AST/SGOT 28 <34 Aug 09, 2023 08:50 AM [facility] CBC Specimen Type: BLOOD No comment entered. Ordering Provider: SUZIE NELSON Report Released Date/Time: Jul 29, 2023 11:58 AM Reporting Lab: [facility] [address] Performing Lab: [facility] [id number] WBC 5.92 4.0-11.0 RBC 4.72 4.0-5.4 HGB 13.9 11.5-16 HCT 40.3 34.5-48 MCV 85.4 80-100 MCH 29.4 27-33 MCHC 34.5 32.0-37.5 PLT 211 150-400 MPV 9.2 7.4-10.4 RDW 13.3 11.5-14.5 Aug 09, 2023 08:50 AM [facility] ALT/SGPT Specimen Type: PLASMA No comment entered. Ordering Provider: SUZIE NELSON Report Released Date/Time: Jul 29, 2023 11:58 AM Reporting Lab: [facility] [id number] Performing Lab: [facility] [address] ALT/SGPT 21 <55 Social History: Smoking Status (Most current) and Tobacco Use (All prior to encounter date) This section includes the most current, and the historical, smoking and tobacco- related health factors from the [facility] where the Encounter took place. Current Smoking Status This section includes the most current smoking, or tobacco-related health factor, from the [facility] where the Encounter took place. Date/Time Current Smoking Status Comment Robyn nestor October 18, 2022 10:00 AM VA-TOBACCO NEVER USED [facility] Tobacco Use History This section includes a history of the smoking, or tobacco-related health factors, that were collected on or before the date of the Encounter. The data comes from the [facility] where the Encounter took place. Date/Time Smoking Status/Tobacco Use Comment F acnelia September 28, 2021 09:30 AM VA-TOBACCO NEVER USED [facility] Nov 10, 2020 08:30 AM [place]-TOBACCO NEVER USED [facility] Encounter Notes: All associated encounter notes This section contains the clinical notes associated to the Encounter. Date/Time Encounter Note(s) Provider Source Jul 29, 2023 11:21 AM MEDICATION MGT CONSULT: LOCAL TITLE: ANTICOAGULATION CLINIC CONSULT STANDARD TITLE: MEDICATION MGT CONSULT DATE OF NOTE: JUL 29, 2023@11:21 ENTRY DATE: JUL 29, 2023@11:21:51 AUTHOR: SUZIE NELSON COSIGNER: URGENCY: STATUS: COMPLETED ANTICOAGULATION CLINIC CONSULT Has ADDENDA DOAC INITIATION - Anticoagulant: apixaban 5mg q12h - Indication(s): A. Fib - Relevant PMH: CAD Non-obstructive on angio 11/2007 (40% mid LAD, 40% prox LCx, 20% distal RCA 30% PDA), s/p stenting Femoral artery (2008), htn - Prior major bleeds:none - Prior anticoagulants: none - Start date: 06/2023 - Anticipated duration: indefinite - [id number] = 5 (2+ age, pvd/cad, htn, female) - HASBLED = (age, +/- asa) per pt discontinued asa SUBJECTIVE/OBJECTIVE Obtained from chart review, [facility]/outside records, & pt. No Active bleeding/increased bleeding risk: No Falls risk: No Abnormal mental status\compliance concerns: No Significant drug interactions: - Continues: pt reports she discontinued asa 2 weeks ago per instructions on a letter. Asa active on med list, will send note to pcp to confirm. YES Alcohol use: - Baseline: wine 0-2 glasses per week but currently avoiding alcohol, aware of bleed risks No Renal or hepatic dysfunction: No Significant mitral stenosis, endocarditis, or mechanical valve: Yes Active cancer/thrombophilia: - skin cancer and h/o breast cancer No Bariatric or bowel resection surgery: No Weight >150kg/BMI >50: YES Agrees to [facility] management, comanagement not allowed: YES Agrees to contact us if DOAC stopped/dose changed by other providers: YES Agrees to routine [facility] labs when requested: YES Agrees to contact us with major changes (health/medications) at OSH: No Recent health changes: No Upcoming procedures requiring interruption: No Bleeding or thromboembolic complications: No Falls or injuries: Dashboard flags: none Patient has answered NKA Active and Recently Outpatient Medications (excluding Supplies): Active Outpatient Medications Status 1) APIXABAN 5MG TAB TAKE ONE TABLET BY MOUTH EVERY 12 ACTIVE HOURS TO PREVENT STROKES 2) ASPIRIN 81MG CHEW TAB CHEW ONE TABLET BY MOUTH EVERY ACTIVE DAY 3) ATORVASTATIN CALCIUM 80MG TAB TAKE ONE TABLET BY ACTIVE MOUTH EVERY DAY FOR CHOLESTEROL 4) CALCIUM 250MG/VITAMIN D 125 UNT TAB TAKE 2 TABLETS BY ACTIVE MOUTH EVERY DAY 5) HYDROCHLOROTHIAZIDE 25MG TAB TAKE ONE TABLET BY MOUTH ACTIVE EVERY DAY FOR BLOOD PRESSURE 6) LISINOPRIL 40MG TAB TAKE ONE TABLET BY MOUTH EVERY ACTIVE DAY FOR BLOOD PRESSURE 7) METOPROLOL SUCCINATE 25MG SA TAB TAKE ONE TABLET BY ACTIVE MOUTH TWICE A DAY FOR BLOOD PRESSURE THESE ARE NEW INSTRUCTIONS 8) OLOPATADINE HCL 0.1% OPH SOLN INSTILL 1 DROP IN BOTH ACTIVE EYES TWICE A DAY 9) OMEPRAZOLE 20MG EC CAP TAKE ONE CAPSULE BY MOUTH ACTIVE TWICE A WEEK ON AN EMPTY STOMACH, AT LEAST 30 MINUTES PRIOR TO A MEAL Labs ---- Age: 88 Weight: 163.5 lb [74.16 kg] (07/14/2023 13:14) Height: 60.5 in [153.7 cm] (03/15/2023 10:08) BMI: 31.5 CREATININE 0.6 PLASMA (03/15/23 08:22) 0.6 PLASMA (03/15/23 08:22) Collection DT Spec WBC HGB HCT PLT MCV 03/15/2023 08:22 BLOOD 5.71 14.2 40.8 187 85.5 ASSESSMENT/PLAN - Appropriate for DOAC use. Pt tolerating well since initiation ~ > 2 weeks. 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 - Does NOT meet 2 of 3 criteria (age >/= 80 yrs, Scr >/= 1.5, weight </= 60 kg) for apixaban dose reduction in A. fib. - New start baseline labs within the past ~30 days available & acceptable. o labs scheduled 08/09/23 most recent labs in February ~ stable - Approve DOAC use: apixaban 5mg q12h - Education attempt(s) below. Will mail DOAC/Rx education materials. - Appropriate review planned: periodic, initial - Lab monitoring frequency defined by dashboard or as clinically indicated. - Monitor dashboard for labs, drug interactions, and compliance. Time spent: 30 minutes Patient Education of Treatment Plan: Indicates readiness to learn, verbalizes understanding, agreement and satisfaction with the treatment plan. Denies further questions. Anticoagulation Educational Assessment Part One Barriers/Special Needs No barriers identified PARTICIPANTS: Patient TEACHING STRATEGY: 1:1 Apixaban Content Reviewed: o Recognize medication by names (apixaban (Eliquis)) & proper tablet identification (on prescription bottle) o Indication, expected duration for therapy o Daily dosage, importance of medication adherence, management of missed/extra doses o Monitoring requirements, importance of compliance with follow-up lab monitoring requirements o Risks and benefits of therapy to include possible adverse reactions or medication failure and what to do if these occur; fall-associated risks & importance of seeking urgent care if falls occur o Interactions (drug, alcohol, and disease states) o Importance of informing your anticoagulation provider as soon as possible when major changes in medications/health occur, upcoming procedures are expected that require interruption, or for evidence of new bleeds or thromboses Patient received a written, detailed copy of the educational handout to include contact information for anticoagulation clinic and instructions for how to obtain supply of medication. PATIENT/FAMILY RESPONSE (OUTCOME): Demonstrates skills(s) safely and effectively FOLLOW-UP RECOMMENDED: None needed Time spent on education: 30minutes Education packet mailed to patient. /baltazar/ SUZIE NELSON Pharm.D., [facility] Anticoagulation Clinical Pharmacist Signed: 07/29/2023 12:18 08/04/2023 ADDENDUM STATUS: COMPLETED No Significant drug interactions: - Asa 81mg daily, see pcp notes /talat NELSON Pharm.D., [facility] Anticoagulation Clinical Pharmacist Signed: 08/04/2023 18:13 SUZIE NELSON [facility]
--- OUTSIDE RECORDS SUMMARY | 2023-09-22 15:45 | XMS_ITS | Encounter Summary ---
Author Name Department of [facility] Organization [facility] of [facility] Address [address] [place] [address] Insurance Providers: All historical and current Section Date Range: From patient's date of to the date document was created. This section includes the names of all active insurance providers for the patient. Insurance Provider Type of Coverage Plan Name Start of Policy Coverage End of Policy Coverage Group Number Member ID Insurance Provider's Telephone Number Policy Talavera's Name Patient's Relationship to Policy Talavera [facility] ([id number]) PRESCRIPT ION GEHA May 30, 2005 [id number] [phone] SONIA MOBLEY PATIENT GEHA (SECONDARY ) PREFERRED PROVIDER ORGANIZAT ION (PPO) GEHA A&B PRIMA RY May 30, 2005 [id number] [phone] SONIA MOBLEY PATIENT GEHA (SECONDARY ) PREFERRED PROVIDER ORGANIZAT ION (PPO) GEHA A/B PRIMA RY May 30, 2005 [id number] [phone] SONIA MOBLEY PATIENT [facility] PREFERRED PROVIDER ORGANIZAT ION (PPO) DO NOT USE May 30, 2005 [id number] [phone] TONI BRITO PATIENT MEDICARE (WNR) MEDICARE (M) PART A Jan 29, 2000 PART A [id number] SONIA MOBLEY PATIENT MEDICARE (WNR) MEDICARE (M) PART B Jan 29, 2000 PART B [id number] SONIA MOBLEY PATIENT Selected Encounter This section includes the information on record at [place] for the Encounter. Date/Time Encounter Type Encounter Description Reason Pro vider Source Jul 15, 2023 11:29 AM Outpatient Encounter CLINICAL PHARMACY I[facility] Encounter Template Text not used by [place] Plan of Treatment: Future Appointments (+ 6 months) and Future Tests (+/- 45 days) The Plan of Treatment section includes future care activities for the patient from [facility] [place] [facility] This section includes future appointments and future orders which are active, pending or scheduled. Future Appointments This section includes appointments that were scheduled to occur 6 months from the date of the Encounter, up to a maximum of 20 appointments. The data comes from all [place] treatment facilities. Appointment Date/Time Appointment Type Appointme nt Facility Name Aug 03, 2023 07:01 AM [place]ORY [place] [facility] Aug 09, 2023 10:30 AM [facility] Aug 09, 2023 11:00 AM AMBULATORY - REHAB MEDICIN [facility] Sep 09, 2023 08:00 AM [facility]ORY - [place] [facility] Sep 12, 2023 09:30 AM [facility] Sep 12, 2023 10:30 AM [place] [facility] Sep 26, 2023 09:00 AM [place] [facility] October 04, 2023 05:00 PM [facility] Nov 10, 2023 10:30 AM [facility]ATORY - [facility]AB [facility] Lab Results: +/- 30 days of the encounter This section includes the Chemistry and Hematology Lab Results on record with [place] for the patient. Radiology Reports and Pathology Reports are provided separately, in subsequent sections. Lab Results This section contains the Chemistry/Hematology Results that were resulted 30 days before or 30 daysafter the date of the Encounter. Date/Time Source Result Type Result - Unit Interpretation Reference Range Comment Aug 09, 2023 08:[address] [facility] CREATININE(INCLUDES EGFR) Specimen Type: PLASMA No comment entered. Ordering Provider: SUZIE NELSON Report Released Date/Time: Jul 29, 2023 11:58 AM Reporting Lab: [facility] [id number] Performing Lab: [facility] [address] CREATININE 0.7 0.5-1.0 .CREAT EGFR(CKD-EPI ) 83 >60 Aug 09, 2023 08:[address] [facility] CBC Specimen Type: BLOOD No comment entered. Ordering Provider: SUZIE NELSON Report Released Date/Time: Jul 29, 2023 11:58 AM Reporting Lab: [facility] [id number] Performing Lab: [facility] [address] WBC 5.92 4.0-11.0 RBC 4.72 4.0-5.4 HGB 13.9 11.5-16 HCT 40.3 34.5-48 MCV 85.4 80-100 MCH 29.4 27-33 MCHC 34.5 32.0-37.5 PLT 211 150-400 MPV 9.2 7.4-10.4 RDW 13.3 11.5-14.5 Aug 09, 2023 08:[address] [facility] AST/SGOT Specimen Type: PLASMA No comment entered. Ordering Provider: SUZIE NELSON Report Released Date/Time: Jul 29, 2023 11:58 AM Reporting Lab: [facility] [address] Performing Lab: [facility] [id number] AST/SGOT 28 <34 Aug 09, 2023 08:[address] [facility] ALT/SGPT Specimen Type: PLASMA No comment entered. Ordering Provider: SUZIE NELSON Report Released Date/Time: Jul 29, 2023 11:58 AM Reporting Lab: [facility] [id number] Performing Lab: [facility] [address] ALT/SGPT 21 <55 Social History: Smoking Status [...] 2022 10:00 AM [facility]-TOBACCO NEVER USED [facility] Tobacco Use History This section includes a history of the smoking, or tobacco-related health factors, that were collected on or before the date of the Encounter. The data comes from the [place] facility where the Encounter took place. Date/Time Smoking Status/Tobacco Use Comment F acnelia September 28, 2021 09:30 AM VA-TOBACCO NEVER USED [facility] Nov 10, 2020 08:30 AM VA-TOBACCO NEVER USED [facility] Radiology Reports: +/- 30 days [...] the Encounter. The data comes from all [place] treatment facilities. Date/Time Radiology Report Provider Source Jun 24, 2023 09:13 AM MRI-BRAIN (P): ITZCARMENCITADEJUAN DOWNEY [id number] F Exm Date: JUN 24, 2023@09:13 Req Phys: VITOR THORNE Loc: [facility] (Req'g Img Loc: [facility] MRI Service: Unknown (Case [id number] COMPLETE) NON [facility] MRI BRAIN (MRI Detailed) CPT:88985 Reason for Study: eval for lesion/dolichoectasia to explain L hemifacial spasm Clinical History: MRI BRAIN WITH & WITHOUT CONTRAST WITH FINE CUTS THROUGH CN VII Per Joint Commission Standards, by signing this diagnostic imaging request the ordering provider confirms they have considered patients age and recent imaging history. Did the ordering provider speak with a bridal stylist sales consultant regarding this imaging exam? 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 History of breast cancer, giant cell arteritis. Responsible provider name and phone number to notify for critical findings if other than user placing the order and pager listed below: User placing orders pager: [phone] LAST CREATININE 0.6 (03/15/23) Allergies: Patient has answered NKA Report Status: Electronically Filed Date Reported: JUL 26, 2023 Report: This is an outside Imaging study and/or report imported for continuity of patient care. This Imaging study and/or report was not reviewed or verified by a [place] Radiologist. Impression: This is an outside Imaging study and/or report imported for continuity of patient care. This Imaging study and/or report was not reviewed or verified by a [place] Radiologist. Primary Diagnostic Code: VERIFIED BY: / *ELECTRONICALLY FILED* [facility] Encounter Notes: All associated encounter notes This section contains the clinical notes associated to the Encounter. Date/Time Encounter Note(s) Provider Source Jul 15, 2023 11:29 AM EDUCATION NOTE: LOCAL TITLE: EDUCATION MEDICATION INSTRUCTION STANDARD TITLE: EDUCATION NOTE DATE OF NOTE: JUL 15, 2023@11:29 ENTRY DATE: JUL 15, 2023@11:29:11 AUTHOR: RANJANA MCKEE EXP COSIGNER: URGENCY: STATUS: COMPLETED MEDICATION EDUCATION PARTICIPANTS: Family/significant other TEACHING STRATEGY: Face to Face, Medication information sheets and list of medications READINESS TO LEARN: No barriers identified LEARNING NEEDS/OBJECTIVES Participant(s) indicates readiness to learn and has been instructed on indications, side effects, and directions for use. Participant(s) will receive medication information sheets for medications filled. Education included discussion of the following: New medication(s): apixaban. Printed out patient handout for apixaban and gave to patient's son. Discussed page on when to call 911 or go to ER. He will make sure patient is aware of all information on the handout. Educational handout(s) provided: Apixaban patient handout PATIENT/FAMILY RESPONSE (OUTCOME): Verbalizes critical information about the topic FOLLOW-UP RECOMMENDED: Patient has been informed of anticoagulation follow up timeframe. /baltazar/ RANJANA MCKEE Pharmacist Signed: 07/15/2023 11:[address] [facility]
--- OUTSIDE RECORDS SUMMARY | 2023-09-22 15:45 | XMS_ITS | Encounter Summary ---
Author Name [facility] of [facility] Organization [facility] Address [address] [place] [address] Insurance Providers: All historical and current Section Date Range: From patient's date of to the date document was created. This section includes the names of all active insurance providers for the patient. Insurance Provider Type of Coverage Plan Name Start of Policy Coverage End of Policy Coverage Group Number Member ID Insurance Provider's Telephone Number Policy Talavera's Name Patient's Relationship to Policy Talavera [facility] ([id number]) PRESCRIPT ION GEHA May 30, 2005 [id number] [phone] SONIA MOBLEY PATIENT GEHA (SECONDARY ) PREFERRED PROVIDER ORGANIZAT ION (PPO) GEHA A&B PRIMA RY May 30, 2005 [id number] [phone] SONIA MOBLEY PATIENT GEHA (SECONDARY ) PREFERRED PROVIDER ORGANIZAT ION (PPO) GEHA A/B PRIMA RY May 30, 2005 [id number] [phone] SONIA MOBLEY PATIENT [facility] PREFERRED PROVIDER ORGANIZAT ION (PPO) DO NOT USE May 30, 2005 [id number] [phone] TONI BRITO PATIENT MEDICARE (WNR) MEDICARE (M) PART A Jan 29, 2000 PART A [id number] [phone] SONIA MOBLEY PATIENT MEDICARE (WNR) MEDICARE (M) PART B Jan 29, 2000 PART B [id number] [phone] SONIA MOBLEY PATIENT Selected Encounter This section includes the information on record at [place] for the Encounter. Date/Time Encounter Type Encounter Description Reason Provider Source Jul 14, 2023 08:00 AM ECG MONIT/REPRT UP TO 48 HRS AMB ECG MONITORING ICD-10-CM Z13.6 Encounter for screening for cardiovascular disorders DOMINIC TREJO May Encounter Template Text not used by [place] Assessments - Encounter Diagnoses This section includes the primary and secondary diagnoses documented for the Encounter. Date/Time Primary/Secondary Diagnosis Diagnosis Name Provider Source Jul 14, 2023 02:45 PM PRIMARY Encounter for screening for cardiovascular disorders HYUN WATERMAN [facility] Plan of Treatment: Future Appointments (+ 6 months) and Future Tests (+/- 45 days) The Plan of Treatment section includes future care activities for the [facility] [place] [facility] This section includes future appointments and future orders which are active, pending or scheduled. Future Appointments This section includes appointments that were scheduled to occur 6 months from the date of the Encounter, up to a maximum of 20 appointments. The data comes from all [facility] facilities. Appointment Date/Time Appointment Type Appointme nt Facility Name Aug 03, 2023 07:01 AM [place]ORY [place] [facility] Aug 09, 2023 10:30 AM [facility] Aug 09, 2023 11:00 AM AMBULATORY - REHAB [facility] Sep 09, 2023 08:00 AM [facility] Sep 12, 2023 09:30 AM [facility] Sep 12, 2023 10:30 AM [facility] Sep 26, 2023 09:00 AM [place] [place] [facility] October 04, 2023 05:00 PM [facility] Nov 10, 2023 10:30 AM [facility] Lab Results: +/- 30 days of the encounter This section includes the Chemistry and Hematology Lab Results on record with [place] for the patient. Radiology Reports and Pathology Reports are provided separately, in subsequent sections. Lab Results This section contains the Chemistry/Hematology Results that were resulted 30 days before or 30 daysafter the date of the Encounter. Date/Time Source Result Type Result - Unit Interpretation Reference Range Comment Aug 09, 2023 08:50 AM [facility] AST/SGOT Specimen Type: PLASMA No comment entered. Ordering Provider: SPENNER,SUZIE A Report Released Date/Time: Jul 29, 2023 11:58 AM Reporting Lab: [facility] [id number] Performing Lab: [facility] [phone] AST/SGOT 28 <34 Aug 09, 2023 08:50 AM [facility] CREATININE(INCLUDES EGFR) Specimen Type: PLASMA No comment entered. Ordering Provider: SUZIE NELSON Report Released Date/Time: Jul 29, 2023 11:58 AM Reporting Lab: [facility] [id number] Performing Lab: [facility] [id number] CREATININE 0.7 0.5-1.0 .CREAT EGFR(CKD-EPI ) 83 >60 Aug 09, 2023 08:50 AM [facility] CBC Specimen Type: BLOOD No comment entered. Ordering Provider: SUZIE NELSON Report Released Date/Time: Jul 29, 2023 11:58 AM Reporting Lab: [facility] [id number] Performing Lab: [facility] [address] WBC 5.92 4.0-11.0 RBC 4.72 4.0-5.4 HGB 13.9 11.5-16 HCT 40.3 34.5-48 MCV 85.4 80-100 MCH 29.4 27-33 MCHC 34.5 32.0-37.5 PLT 211 150-400 MPV 9.2 7.4-10.4 RDW 13.3 11.5-14.5 Aug 09, 2023 08:50 AM [facility] ALT/SGPT Specimen Type: PLASMA No comment entered. Ordering Provider: SUZIE NELSON Report Released Date/Time: Jul 29, 2023 11:58 AM Reporting Lab: [facility] [address] Performing Lab: [facility] [id number] ALT/SGPT 21 <55 Vital Signs: All taken on the encounter date This section contains inpatient and outpatient Vital Signs collected on the date of the Encounter. Date/Time Temperature Pulse Blood Pressure Respiratory Rate SP02 Pain Height Weight Body Mass Index Source Jul 14, 2023 01:14 PM 65 135/79 16 96 0 163.5 31 [facility] Social History: Smoking Status (Most current) and Tobacco Use (All prior to encounter date) This section includes the most current, and the historical, smoking and tobacco- related health factors from the [place] facility where the Encounter took place. Current Smoking Status This section includes the most current smoking, or tobacco-related health factor, from the [place] facility where the Encounter took place. Date/Time Current Smoking Status Comment Facil ity October 18, 2022 10:00 AM VA-TOBACCO NEVER USED [facility] Tobacco Use History This section includes a history of the smoking, or tobacco-related health factors, that were collected on or before the date of the Encounter. The data comes from the [place] facility where the Encounter took place. Date/Time Smoking Status/Tobacco Use Comment F acility September 28, 2021 09:30 AM VA-TOBACCO NEVER USED [facility] Nov 10, 2020 08:30 AM [place]-TOBACCO NEVER USED [facility] Radiology [...] the Encounter. The data comes from all [place] treatment facilities. Date/Time Radiology Report Provider Source Jun 24, 2023 09:13 AM MRI-BRAIN (P): ALICE MBOLEY NASREEN [id number] -[id number] F Exm Date: JUN 24, 2023@09:13 Req Phys: VITOR THORNE Loc: [facility] NEURO [facility] MATI (Req'g Img Loc: OUTSOURCE MRI Service: Unknown (Case [id number] COMPLETE) NON [facility] MRI BRAIN (MRI Detailed) CPT:22114 Reason for Study: eval for lesion/dolichoectasia to explain L hemifacial spasm Clinical History: MRI BRAIN WITH & WITHOUT CONTRAST WITH FINE CUTS THROUGH CN VII Per Joint Commission Standards, by signing this diagnostic imaging request the ordering provider confirms they have considered patients age and recent imaging history. Did the ordering provider speak with a hr business partner consultant regarding this imaging exam? 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 History of breast cancer, giant cell arteritis. Responsible provider name and phone number to notify for critical findings if other than user placing the order and pager listed below: User placing orders pager: [phone] LAST CREATININE 0.6 (03/15/23) Allergies: Patient has answered NKA Report Status: Electronically Filed Date Reported: JUL 26, 2023 Report: This is an outside Imaging study and/or report imported for continuity of patient care. This Imaging study and/or report was not reviewed or verified by a [place] Radiologist. Impression: This is an outside Imaging study and/or report imported for continuity of patient care. This Imaging study and/or report was not reviewed or verified by a [place] Radiologist. Primary Diagnostic Code: VERIFIED BY: / *ELECTRONICALLY FILED* [facility] Encounter Notes: All associated encounter notes This section contains the clinical notes associated to the Encounter. Date/Time Encounter Note(s) Provider Source Jul 14, 2023 02:45 PM CARDIOLOGY OUTPATI ENT NOTE: LOCAL TITLE: CARDIOLOGY CLINIC TECHNOLOGIST NOTE STANDARD TITLE: CARDIOLOGY OUTPATIENT NOTE DATE OF NOTE: JUL 14, 2023@14:45 ENTRY DATE: JUL 14, 2023@14:45:48 AUTHOR: HYUN WATERMAN EXP COSIGNER: URGENCY: STATUS: COMPLETED Event Monitor ZIO Monitor Clinical indication for ZIO: PAF Enrolled patient. Assessed monitor placement. Prepped skin. - SHAVE area if hair is present - ABRADE skin, applying pressure for 40 broad strokes -10 times diagonally left, diagonally right, across and down (40 times total). - CLEAN skin thoroughly with both alcohol pads. Let dry for 1 minute. Applied monitor. Activate ZIO Monitor. Education given to patient along with ZIO Patient Instructions Pamphlet and Button Press Log. Date to remove patch: Jun Instructed to return the monitor by mail along with the log book in the pre- addressed return box and drop into [employer] mailbox. Registered device with [employer]; serial number: [id number] /baltazar/ HYUN Hubbard. [place] [facility] twin ports Signed: 07/14/2023 14:46 HYUN WATERMAN [facility]
--- OUTSIDE RECORDS SUMMARY | 2023-09-22 15:45 | XMS_ITS | Encounter Summary ---
Author Name Department of [facility] Organization [facility] Address [address] [place] [address] Insurance Providers: All historical and current Section [...] Patient's Relationship to Policy Talavera [facility] ([id number]) PRESCRIPT ION GEHA May 30, 2005 [id number] SONIA GUTIERRES PATIENT GEHA (SECONDARY ) PREFERRED PROVIDER ORGANIZAT ION (PPO) GEHA A&B PRIMA RY May 30, 2005 [id number] [phone] SONIA GUTIERRES PATIENT GEHA (SECONDARY ) PREFERRED PROVIDER ORGANIZAT ION (PPO) GEHA A/B PRIMA RY May 30, 2005 [id number] SONIA GUTIERRES PATIENT [facility] PREFERRED PROVIDER ORGANIZAT ION (PPO) DO NOT USE May 30, 2005 [id number] [phone] TONI BRITO PATIENT MEDICARE (WNR) MEDICARE (M) PART A Jan 29, 2000 PART A [id number] [phone] SONIA GUTIERRES PATIENT MEDICARE (WNR) MEDICARE (M) PART B Jan 29, 2000 PART B [id number] [phone] SONIA GUTIERRES PATIENT Selected Encounter This section includes the information on record at CT for the Encounter. Date/Time Encounter Type Encounter Description Reason Pro vider Source Jul 12, 2023 10:01 AM Outpatient Encounter COMMUNITY CARE CONSULT IHE Encounter Template Text not used by CT Plan of Treatment: Future Appointments (+ 6 months) and Future Tests (+/- 45 days) The Plan of Treatment section includes future care activities for the [facility] This section includes future appointments and future orders which are active, pending or scheduled. Future Appointments This section includes appointments that were scheduled to occur 6 months from the date of the Encounter, up to a maximum of 20 appointments. The data comes from all CT treatment facilities. Appointment Date/Time Appointment Type Appointme nt Facility Name Jul 14, 2023 08:00 AM [place] [facility] Jul 14, 2023 01:15 PM [facility] Aug 03, 2023 07:01 AM [place] [facility] Aug 09, 2023 10:30 AM [place] - [place] [facility] Aug 09, 2023 11:00 AM AMBULATORY - REHAB [facility] Sep 09, 2023 08:00 AM [place]ORY - [place] [facility] Sep 12, 2023 09:30 AM [place] [facility] Sep 12, 2023 10:30 AM [place] [facility] Sep 26, 2023 09:00 AM [place] [facility] October 04, 2023 05:00 PM [place]ORY - [place]ONE [place] [facility] Nov 10, 2023 10:30 AM AMBULATORY - REHAB [facility] Lab Results: +/- 30 days of the encounter This section includes the Chemistry and Hematology Lab Results on record with CT for the patient. Radiology Reports and Pathology Reports are provided separately, in subsequent sections. Lab Results This section contains the Chemistry/Hematology Results that were resulted 30 days before or 30 daysafter the date of the Encounter. Date/Time Source Result Type Result - Unit Interpretation Reference Range Comment Aug 09, 2023 08:50 AM [facility] CBC Specimen Type: BLOOD No comment entered. Ordering Provider: SUZIE NELSON Report Released Date/Time: Jul 29, 2023 11:58 AM Reporting Lab: [facility] [id number] Performing Lab: [facility] [address] WBC 5.92 4.0-11.0 RBC 4.72 4.0-5.4 HGB 13.9 11.5-16 HCT 40.3 34.5-48 MCV 85.4 80-100 MCH 29.4 27-33 MCHC 34.5 32.0-37.5 PLT 211 150-400 MPV 9.2 7.4-10.4 RDW 13.3 11.5-14.5 Aug 09, 2023 08:50 AM [facility] CREATININE(INCLUDES EGFR) Specimen Type: PLASMA No comment entered. Ordering Provider: SUZIE NELSON Report Released Date/Time: Jul 29, 2023 11:58 AM Reporting Lab: [facility] [address] Performing Lab: [facility] [address] CREATININE 0.7 0.5-1.0 .CREAT EGFR(CKD-EPI ) 83 >60 Aug 09, 2023 08:50 AM [facility] AST/SGOT Specimen Type: PLASMA No comment entered. Ordering Provider: SUZIE NELSON Report Released Date/Time: Jul 29, 2023 11:58 AM Reporting Lab: [facility] [id number] Performing Lab: [facility] [address] AST/SGOT 28 <34 Aug 09, 2023 08:50 AM [facility] ALT/SGPT Specimen Type: PLASMA No comment entered. Ordering Provider: SUZIE NELSON Report Released Date/Time: Jul 29, 2023 11:58 AM Reporting Lab: [facility] [id number] Performing Lab: [facility] [address] ALT/SGPT 21 <55 Social History: Smoking Status (Most current) and Tobacco Use (All prior to encounter date) This section includes the most current, and the historical, smoking and tobacco- related health factors from the [place] facility where the Encounter took place. Current Smoking Status This section includes the most current smoking, or tobacco-related health factor, from the [place] facility where the Encounter took place. Date/Time Current Smoking Status Comment Facil ity October 18, 2022 10:00 AM VA-TOBACCO NEVER USED [facility] Tobacco Use History This section includes a history of the smoking, or tobacco-related health factors, that were collected on or before the date of the Encounter. The data comes from the CT facility where the Encounter took place. Date/Time Smoking Status/Tobacco Use Comment Farooq aranda September 28, 2021 09:30 AM VA-TOBACCO NEVER USED [facility] Nov 10, 2020 08:30 AM VA-TOBACCO NEVER USED [facility] Radiology Reports: +/- 30 days of [...] the Encounter. The data comes from all CT treatment facilities. Date/Time Radiology Report Provider Source Jun 24, 2023 09:13 AM MRI-BRAIN (P): ALICE GUTIERRES NASREEN [id number] -[id number] F Exm Date: JUN 24, 2023@09:13 Req Phys: VITOR THORNE Loc: [facility] NEURO [facility] MATI (Req'g Img Loc: OUTSOURCE MRI Service: Unknown (Case [id number] COMPLETE) NON [facility] MRI BRAIN (MRI Detailed) CPT:62706 Reason for Study: eval for lesion/dolichoectasia to explain L hemifacial spasm Clinical History: MRI BRAIN WITH & WITHOUT CONTRAST WITH FINE CUTS THROUGH CN VII Per Joint Commission Standards, by signing this diagnostic imaging request the ordering provider confirms they have considered patients age and recent imaging history. Did the ordering provider speak with a devops consultant regarding this imaging exam? 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 History of breast cancer, giant cell arteritis. Responsible provider name and phone number to notify for critical findings if other than user placing the order and pager listed below: User placing orders pager: [phone] LAST CREATININE 0.6 (03/15/23) Allergies: Patient has answered NKA Report Status: Electronically Filed Date Reported: JUL 26, 2023 Report: This is an outside Imaging study and/or report imported for continuity of patient care. This Imaging study and/or report was not reviewed or verified by a CT Radiologist. Impression: This is an outside Imaging study and/or report imported for continuity of patient care. This Imaging study and/or report was not reviewed or verified by a CT Radiologist. Primary Diagnostic Code: VERIFIED BY: / *ELECTRONICALLY FILED* [facility] Encounter Notes: All associated encounter notes This section contains the clinical notes associated to the Encounter. Date/Time Encounter Note(s) Provider Source Aug 09, 2023 02:08 PM ADDENDUM: LOCAL TITLE: Addendum STANDARD TITLE: ADDENDUM DATE OF NOTE: AUG 09, 2023@14:08:34 ENTRY DATE: AUG 09, 2023@14:08:35 AUTHOR: EMMANUELLE MORAN EXP COSIGNER: URGENCY: STATUS: COMPLETED had previous audiology consult that over 1 year ago. COMMUNITY CARE-DS ROUTINE AUD 06/19/20 Valid from 2020-11-17 through 2021-07-17. She was recently seen by audiology on 08/04/[address] Vendor submitting RFS now for continuation of care for hearing issues/broken hearing aid. Alerting Vera Mcdonough for review. /baltazar/ Emmanuelle Moran RN,BSN Community Customer Service Sales Associate Signed: 08/09/2023 14:11 Receipt Acknowledged By: 08/16/2023 07:12 /baltazar/ Antony MORALES DOCTOR OF AUDIOLOGY --- Original Document --- 07/12/23 COMMUNITY CARE-CARE COORDINATION PLAN NOTE: Ms. Gutierres reached out to write in community care to report that she missed appointment this morning with Dr. Ventura because the van did not come to pick her up from her residence. She tried calling the call center and could not get through. She called the # for the van and left a message. She wants to reschedule her appointment with Dr. Ventura and is apologetic for missing her appointment. Please contact to reschedule. Call back [phone]. /baltazar/ Emmanuelle MoranRN,BSN Community Customer Service Sales Associate Signed: 07/12/2023 10:04 Receipt Acknowledged By: 07/12/2023 10:17 /baltazar/ Natalia Sales MD STAFF PHYSICIAN 07/12/2023 10:06 /baltazar/ MICKI JAIN REGISTERED NURSE 07/12/2023 ADDENDUM STATUS: COMPLETED alerting MSA to reschedule /baltazar/ MICKI JAIN REGISTERED NURSE Signed: 07/12/2023 10:06 Receipt Acknowledged By: 07/13/2023 09:30 /baltazar/ ADELA MAN ADVANCED INFORMATICS CONSULTANT 07/12/2023 ADDENDUM STATUS: COMPLETED Called and left message, letter sent. /baltazar/ ADELA MAN ADVANCED INFORMATICS CONSULTANT Signed: 07/12/2023 13:20 EMMANUELLE MORAN [facility] Jul 12, 2023 10:06 AM ADDENDUM: LOCAL TITLE: Addendum STANDARD TITLE: ADDENDUM DATE OF NOTE: JUL 12, 2023@10:06:25 ENTRY DATE: JUL 12, 2023@10:06:26 AUTHOR: MICKI JAIN COSIGNER: URGENCY: STATUS: COMPLETED alerting MSA to reschedule /baltazar/ MICKI JAIN REGISTERED NURSE Signed: 07/12/2023 10:06 Receipt Acknowledged By: 07/13/2023 09:30 /baltazar/ ADELA MAN ADVANCED INFORMATICS CONSULTANT --- Original Document --- 07/12/23 COMMUNITY CARE-CARE COORDINATION PLAN NOTE: Ms. Gutierres reached out to write in community care to report that she missed appointment this morning with Dr. Ventura because the van did not come to pick her up from her residence. She tried calling the call center and could not get through. She called the for the van and left a message. She wants to reschedule her appointment with Dr. Ventura and is apologetic for missing her appointment. Please contact to reschedule. Call back [phone]. /es/ Emmanuelle Moran RN,BSN Community Customer Service Sales Associate Signed: 07/12/2023 10:04 Receipt Acknowledged By: 07/12/2023 10:17 /baltazar/ Natalia Sales MD STAFF PHYSICIAN 07/12/2023 10:06 /baltazar/ MICKI JAIN REGISTERED NURSE 07/12/2023 ADDENDUM STATUS: COMPLETED Called and left message, letter sent. /baltazar/ ADELA MAN ADVANCED INFORMATICS CONSULTANT Signed: 07/12/2023 13:20 MICKI JAIN [facility] Jul 12, 2023 10:01 AM NONVA NOTE: LOCAL TITLE: COMMUNITY CARE-CARE COORDINATION PLAN NOTE STANDARD TITLE: NONVA NOTE DATE OF NOTE: JUL 12, 2023@10:01 ENTRY DATE: JUL 12, 2023@10:02:13 AUTHOR: EMMANUELLE MORAN EXP COSIGNER: URGENCY: STATUS: COMPLETED COMMUNITY CARE-CARE COORDINATION PLAN NOTE Has ADDENDA Ms. Gutierres reached out to write in community care to report that she missed appointment this morning with Dr. Ventura because the van did not come to pick her up from her residence. She tried calling the call center and could not get through. She called the # for the van and left a message. She wants to reschedule her appointment with Dr. Ventura and is apologetic for missing her appointment. Please contact to reschedule. Call back [phone]. /baltazar/ Emmanuelle Moran RN,BSN Community Customer Service Sales Associate Signed: 07/12/2023 10:04 Receipt Acknowledged By: 07/12/2023 10:17 /baltazar/ Natalia Sales MD STAFF PHYSICIAN 07/12/2023 10:06 /baltazar/ MICKI JAIN REGISTERED NURSE 07/12/2023 ADDENDUM STATUS: COMPLETED alerting MSA to reschedule /talat JAIN REGISTERED NURSE Signed: 07/12/2023 10:06 Receipt Acknowledged By: 07/13/2023 09:30 /baltazar/ ADELA MAN ADVANCED INFORMATICS CONSULTANT 07/12/2023 ADDENDUM STATUS: COMPLETED Called and left message, letter sent. /talat MAN ADVANCED INFORMATICS CONSULTANT Signed: 07/12/2023 13:20 08/09/2023 ADDENDUM STATUS: COMPLETED Frankewing had previous audiology consult that over 1 year ago. COMMUNITY CARE-DS ROUTINE AUD 06/19/20 Valid from 2020-11-17 through 2021-07-17. She was recently seen by audiology on 08/04/23 without [place]. Vendor submitting RFS now for continuation of care for hearing issues/broken hearing aid. Alerting Vera Mcdonough for review. /baltazar/ Emmanuelle MoranRN,BSN Community Customer Service Sales Associate Signed: 08/09/2023 14:11 Receipt Acknowledged By: * AWAITING SIGNATURE * MICHAEL MCDONOUGH,EMMANUELLE [place] [facility]
--- OUTSIDE RECORDS SUMMARY | 2023-09-22 15:45 | XMS_ITS | Encounter Summary ---
Author Name [facility] Organization [facility] Address [address] [place] [address] Insurance Providers: All historical and current Section Date Range: From patient's date of to the date document was created. This section includes the names of all active insurance providers for the patient. Insurance Provider Type of Coverage Plan Name Start of Policy Coverage End of Policy Coverage Group Number Member ID Insurance Provider's Telephone Number Policy Talavera's Name Patient's Relationship to Policy Talavera [facility] ([id number]) PRESCRIPT ION GEHA May 30, 2005 [id number] [phone] SONIA MOBLEY PATIENT GEHA (SECONDARY ) PREFERRED PROVIDER ORGANIZAT ION (PPO) GEHA A/B PRIMA RY May 30, 2005 [id number] [phone] SONIA MOBLEY PATIENT GEHA (SECONDARY ) PREFERRED PROVIDER ORGANIZAT ION (PPO) GEHA A&B PRIMA RY May 30, 2005 [id number] SONIA MOBLEY PATIENT [facility] PREFERRED PROVIDER ORGANIZAT ION (PPO) DO NOT USE May 30, 2005 [id number] [phone] TONI BRITO PATIENT MEDICARE (WNR) MEDICARE (M) PART A Jan 29, 2000 PART A [id number] [phone] SONIA MOBLEY PATIENT MEDICARE (WNR) MEDICARE (M) PART B Jan 29, 2000 PART B [id number] [phone] SONIA MOBLEY PATIENT Selected Encounter This section includes the information on record at [place] for the Encounter. Date/Time Encounter Type Encounter Description Reason Pro vider Source Jul 12, 2023 09:30 AM Outpatient Encounter COMP [facility] Encounter Template Text not used by [place] Plan of Treatment: Future Appointments (+ 6 months) and Future Tests (+/- 45 days) The Plan of Treatment section includes future care activities for the patient from all [place] [facility]. This section includes future appointments and future [...] 14, 2023 08:00 AM [facility] Jul 14, 2023 01:15 PM AMBULATORY - MEDICINE [facility] Aug 03, 2023 07:01 AM AMBULATORY - NONE [place] [facility] Aug 09, 2023 10:30 AM [facility] Aug 09, 2023 11:00 AM AMBULATORY - REHAB [facility] Sep 09, 2023 08:00 AM [place] [place] [facility]ONE [place] [facility] Sep 12, 2023 09:30 AM [place] [place] [facility] Sep 12, 2023 10:30 AM [facility] Sep 26, 2023 09:00 AM [facility] [place] [facility] October 04, 2023 05:00 PM [facility] Nov 10, 2023 10:30 AM AM[facility]ULATORY - RE[facility]AB [facility] Lab Results: +/- 30 days of the encounter This section includes the Chemistry and Hematology Lab Results on record with [place] for the patient. Radiology Reports and Pathology Reports are provided separately, in subsequent sections. Lab Results This section contains the Chemistry/Hematology Results that were resulted 30 days before or 30 daysafter the date of the Encounter. Date/Time Source Result Type Result - Unit Interpretation Reference Range Comment Aug 09, 2023 08:50 AM [facility] AST/SGOT Specimen Type: PLASMA No comment entered. Ordering Provider: SUZIE NELSON Report Released Date/Time: Jul 29, 2023 11:58 AM Reporting Lab: [facility] [id number] Performing Lab: [facility] [id number] AST/SGOT 28 <34 Aug 09, 2023 08:50 AM [facility] CREATININE(INCLUDES EGFR) Specimen Type: PLASMA No comment entered. Ordering Provider: SUZIE NELSON Report Released Date/Time: Jul 29, 2023 11:58 AM Reporting Lab: [facility] [id number] Performing Lab: [facility] [id number] CREATININE 0.7 0.5-1.0 .CREAT EGFR(CKD-EPI ) 83 >60 Aug 09, 2023 08:50 AM [facility] CBC Specimen Type: BLOOD No comment entered. Ordering Provider: SUZIE NELSON Report Released Date/Time: Jul 29, 2023 11:58 AM Reporting Lab: [facility] [phone] Performing Lab: [facility] [phone] WBC 5.92 4.0-11.0 RBC 4.72 4.0-5.4 HGB 13.9 11.5-16 HCT 40.3 34.5-48 MCV 85.4 80-100 MCH 29.4 27-33 MCHC 34.5 32.0-37.5 PLT 211 150-400 MPV 9.2 7.4-10.4 RDW 13.3 11.5-14.5 Aug 09, 2023 08:50 AM [facility] ALT/SGPT Specimen Type: PLASMA No comment entered. Ordering Provider: SUZIE NELSON Report Released Date/Time: Jul 29, 2023 11:58 AM Reporting Lab: [facility] [phone] Performing Lab: [facility] [phone] ALT/SGPT 21 <55 Social History: Smoking Status [...] AM VA-TOBACCO NEVER USED [facility] Radiology Reports: +/- 30 days [...] comes from all [place] treatment facilities. Date/Time Radiology Report Provider Source Jun 24, 2023 09:13 AM MRI-BRAIN (P): ALICE MOBLEY [facility] [id number] [phone] [id number] Exm Date: JUN 24, 2023@09:13 Req Phys: VITOR THORNE Loc: [facility] (Req'g Img Loc: OUTSOURCE MRI Service: Unknown (Case [id number] COMPLETE) NON [facility] MRI BRAIN (MRI Detailed) CPT:11968 Reason for Study: eval for lesion/dolichoectasia to explain L hemifacial spasm Clinical History: MRI BRAIN WITH & WITHOUT CONTRAST WITH FINE CUTS THROUGH CN VII Per Joint Commission Standards, by signing this diagnostic imaging request the ordering provider confirms they have considered patients age and recent imaging history. Did the ordering provider speak with a senior staff consultant regarding this imaging exam? 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 History of breast cancer, giant cell arteritis. Responsible provider name and phone number to notify for critical findings if other than user placing the order and pager listed below: User placing orders pager: [phone] [facility] CREATININE 0.6 (03/15/23) Allergies: Patient has answered NKA Report Status: Electronically Filed Date Reported: JUL 26, 2023 Report: This is an outside Imaging study and/or report imported for continuity of patient care. This Imaging study and/or report was not reviewed or verified by a [place] Radiologist. Impression: This is an outside Imaging study and/or report imported for continuity of patient care. This Imaging study and/or report was not reviewed or verified by a [place] Radiologist. Primary Diagnostic Code: VERIFIED BY: / *ELECTRONICALLY FILED* [facility] Encounter Notes: All associated encounter notes This section contains the clinical notes associated to the Encounter. Date/Time Encounter Note(s) Provider Source Jul 12, 2023 01:12 PM REPORT OF CONTACT: LOCAL TITLE: APPOINTMENT SCHEDULING NOTE STANDARD TITLE: REPORT OF CONTACT DATE OF NOTE: JUL 12, 2023@13:12 ENTRY DATE: JUL 12, 2023@13:12:45 AUTHOR: GRAHAM MAN EXP COSIGNER: URGENCY: STATUS: COMPLETED Attempted to schedule Cancellation Patient cancellation 07/12/23 Contact attempt made to [facility] 1st attempt Telephone 2nd attempt Letter - Sent letter by regular [place] mail to address on file: ALICE MOBLEY [address] [place] [address] [address] [place] [id number] Disposition order request after Jun Left message on voice mail to call back to this number [phone] If [facility] calls back, schedule appt for: MED CHANGES FROM RECENT OUTSIDE ED VISIT /baltazar/ ADELA MAN [employer]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
--- OUTSIDE RECORDS SUMMARY | 2023-09-22 15:45 | XMS_ITS | Encounter Summary ---
Author Name Department of [facility] Organization Department of [facility] Address [address] [place] [address] Insurance Providers: All historical and current Section [...] Name Patient's Relationship to Policy Talavera [facility] ([id number]) PRESCRIPT ION GEHA May 30, 2005 [id number] [phone] SONIA MOBLEY PATIENT GEHA (SECONDARY ) PREFERRED PROVIDER ORGANIZAT ION (PPO) GEHA A/B PRIMA RY May 30, 2005 [id number] SONIA MOBLEY PATIENT GEHA (SECONDARY ) PREFERRED PROVIDER ORGANIZAT ION (PPO) GEHA A&B PRIMA RY May 30, 2005 [id number] [phone] SONIA MOBLEY PATIENT [facility] PREFERRED PROVIDER ORGANIZAT ION (PPO) DO NOT USE May 30, 2005 [id number] [phone] TONI BRITO PATIENT MEDICARE (WNR) MEDICARE (M) PART B Jan 29, 2000 PART B [id number] [phone] SONIA MOBLEY PATIENT MEDICARE (WNR) MEDICARE (M) PART A Jan 29, 2000 PART A [id number] [phone] SONIA MOBLEY PATIENT Selected Encounter This section includes the information on record at [place] for the Encounter. Date/Time Encounter Type Encounter Description Reason Provider Source Jul 14, 2023 01:15 PM OFFICE O/P EST MOD 30 MIN COMP [facility] ICD-10-CM I48.91 Unspecified atrial fibrillation DOMINIC TREJO [facility] Encounter Template Text not used by [place] Assessments - Encounter Diagnoses This section includes the primary and secondary diagnoses documented for the Encounter. Date/Time Primary/Secondary Diagnosis Diagnosis Name Provider Source Jul 27, 2023 12:42 PM PRIMARY Unspecified atrial fibrillation DOMINIC TREJO [facility] Plan of Treatment: Future Appointments (+ 6 months) and Future Tests (+/- 45 days) The Plan of Treatment section includes future care activities for the [facility] This section includes future appointments and future orders which are active, pending or scheduled. Future Appointments This section includes appointments that were scheduled to occur 6 months from the date of the Encounter, up to a maximum of 20 appointments. The data comes from all [place] treatment facilities. Appointment Date/Time Appointment Type Appointme nt Facility Name Aug 03, 2023 07:01 AM AMB[place]ORY - NONE [place] [facility] Aug 09, 2023 10:30 AM AMBULATORY - NONE [place] [facility] Aug 09, 2023 11:00 AM AMBULATORY - REHAB MEDICIN [facility] Sep 09, 2023 08:00 AM [place] [facility] Sep 12, 2023 09:30 AM AMBUL[place]ORY - NONE [place] [facility] Sep 12, 2023 10:30 AM [place] [facility] Sep 26, 2023 09:00 AM AM[place] [facility] October 04, 2023 05:00 PM AMBUL[place]ORY - NONE [place] [facility] Nov 10, 2023 10:30 AM AMBULATORY - RE[facility]AB [facility]IC[facility] Lab Results: +/- 30 days of the encounter This section includes the Chemistry and Hematology Lab Results on record with [place] for the patient. Radiology Reports and Pathology Reports are provided separately, in subsequent sections. Lab Results This section contains the Chemistry/Hematology Results that were resulted 30 days before or 30 daysafter the date of the Encounter. Date/Time Source Result Type Result - Unit Interpretation Reference Range Comment Aug 09, 2023 08:50 AM [facility] AST/SGOT Specimen Type: PLASMA No comment entered. Ordering Provider: SUZIE NELSON Report Released Date/Time: Jul 29, 2023 11:58 AM Reporting Lab: [facility] [id number] Performing Lab: [facility] [id number] AST/SGOT 28 <34 Aug 09, 2023 08:50 AM [facility] CREATININE(INCLUDES EGFR) Specimen Type: PLASMA No comment entered. Ordering Provider: SUZIE NELSON Report Released Date/Time: Jul 29, 2023 11:58 AM Reporting Lab: [facility] [id number] Performing Lab: [facility] [id number] CREATININE 0.7 0.5-1.0 .CREAT EGFR(CKD-EPI ) 83 >60 Aug 09, 2023 08:50 AM [facility] CBC Specimen Type: BLOOD No comment entered. Ordering Provider: SUZIE NELSON Report Released Date/Time: Jul 29, 2023 11:58 AM Reporting Lab: [facility] [id number] Performing Lab: [facility] [id number] WBC 5.92 4.0-11.0 RBC 4.72 4.0-5.4 HGB 13.9 11.5-16 HCT 40.3 34.5-48 MCV 85.4 80-100 MCH 29.4 27-33 MCHC 34.5 32.0-37.5 PLT 211 150-400 MPV 9.2 7.4-10.4 RDW 13.3 11.5-14.5 Aug 09, 2023 08:50 AM [facility] ALT/SGPT Specimen Type: PLASMA No comment entered. Ordering Provider: SUZIE NELSON Report Released Date/Time: Jul 29, 2023 11:58 AM Reporting Lab: [facility] [id number] Performing Lab: [facility] [id number] ALT/SGPT 21 <55 Vital Signs: All taken on the encounter date This section contains inpatient and outpatient Vital Signs collected on the date of the Encounter. Date/Time Temperature Pulse Blood Pressure Respiratory Rate SP02 Pain Height Weight Body Mass Index Source Jul 14, 2023 01:14 PM 65 135/79 16 96 0 163.5 31 [place] [facility] Social History: Smoking Status (Most current) and Tobacco Use (All prior to encounter date) This section includes the most current, and the historical, smoking and tobacco- related health factors from the [place] facility where the Encounter took place. Current Smoking Status This section includes the most current smoking, or tobacco-related health factor, from the [place] facility where the Encounter took place. Date/Time Current Smoking Status Comment Robyn ity October 18, 2022 10:00 AM VA-TOBACCO NEVER USED [facility] Tobacco Use History This section includes a history of the smoking, or tobacco-related health factors, that were collected on or before the date of the Encounter. The data comes from the [place] facility where the Encounter took place. Date/Time Smoking Status/Tobacco Use Comment F acnelia September 28, 2021 09:30 AM DE-TOBACCO NEVER USED [facility] Nov 10, 2020 08:30 AM DE-TOBACCO NEVER USED [facility] Radiology Reports: +/- 30 days of the [...] the Encounter. The data comes from all [place] treatment facilities. Date/Time Radiology Report Provider Source Jun 24, 2023 09:13 AM MRI-BRAIN (P): ALICE MOBLEY [facility] [id number] F Exm Date: JUN 24, 2023@09:13 Req Phys: VITOR THORNE [facility] (Req'g Img Loc: OUTSOURCE MRI Service: Unknown (Case [id number] COMPLETE) NON VA MRI BRAIN (MRI Detailed) CPT:54498 Reason for Study: eval for lesion/dolichoectasia to explain L hemifacial spasm Clinical History: MRI BRAIN WITH & WITHOUT CONTRAST WITH FINE CUTS THROUGH CN VII Per Joint Commission Standards, by signing this diagnostic imaging request the ordering provider confirms they have considered patients age and recent imaging history. Did the ordering provider speak with a fashion consultant sales regarding this imaging exam? 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 History of breast cancer, giant cell arteritis. Responsible provider name and phone number to notify for critical findings if other than user placing the order and pager listed below: User placing orders pager: [phone] LAST CREATININE 0.6 (03/15/23) Allergies: Patient has answered NKA Report Status: Electronically Filed Date Reported: JUL 26, 2023 Report: This is an outside Imaging study and/or report imported for continuity of patient care. This Imaging study and/or report was not reviewed or verified by a [place] Radiologist. Impression: This is an outside Imaging study and/or report imported for continuity of patient care. This Imaging study and/or report was not reviewed or verified by a [place] Radiologist. Primary Diagnostic Code: VERIFIED BY: / *ELECTRONICALLY FILED* [facility] Encounter Notes: All associated encounter notes This section contains the clinical notes associated to the Encounter. Date/Time Encounter Note(s) Provider Source Aug 09, 2023 12:57 PM LETTERS: LOCAL TITLE: FOLLOW UP RESULTS LETTER STANDARD TITLE: LETTERS DATE OF NOTE: AUG 09, 2023@12:57 ENTRY DATE: AUG 09, 2023@12:57:47 AUTHOR: WEI TREJO COSIGNER: URGENCY: STATUS: COMPLETED [facility] [address] [place] [address] Jul ALICE MOBLEY [address] [facility] [address] Dear : I am writing to inform you of the results of the tests you had done at the [facility]. Your heart monitor returned showing no atrial fibrillation. I want you to continue the blood thinners for now. We can talk about long-term use the next time we see each other. If you have any further questions or problems, please contact our nursing staff or me at the following number: [phone]. Sincerely, Dominic Sales MD STAFF PHYSICIAN DOMINIC TREJO [facility] Jul 20, 2023 02:29 PM ADDENDUM: LOCAL TITLE: Addendum STANDARD TITLE: ADDENDUM DATE OF NOTE: JUL 20, 2023@14:29:24 ENTRY DATE: JUL 20, 2023@14:29:26 AUTHOR: WEI TREJO EXP COSIGNER: URGENCY: STATUS: COMPLETED Patient would like to stop Radha at this time. Thanks. /baltazar/ Dominic Sales MD STAFF PHYSICIAN Signed: 07/20/2023 14:29 Receipt Acknowledged By: 07/20/2023 14:35 /baltazar/ MICKI JAIN REGISTERED NURSE --- Original Document --- 07/14/23 [facility] NOTE: Nurse's Notes Reviewed. Chief Complaint: ED f/u S: The patient is a 88 yo FEMALE who comes in today for ED f/u. Had onset of her heart pounding. Called 911. She notes she just laid and rested in the ED until things calmed down. Prior to this she'd had some wine. Discharge paperwork: New onset Atrial fibrillation on 06/25. Previously had an episode of SVT in 04/2022. Saw EP, but decided against ablation as was able to resolve with Valsalva maneuver. This episode was also preceded by drinking wine. Has had a little bit of a cough at night, so has been taking dextromethorphan at night. Has diarrhea right away after she has breakfast (cereal and eggs and orange juice). Wihtin 45-60min. Doesn't get diarrhea after other meals. Past medical history/Active Problems: Active Problems: Active [...] 4. Polymyalgia rheumatica 5. Prediabetes ([facility] [id number]) 6. 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 - pT1c, N0, M0-Stage 1A - s/p lumpectomy 06/2014, radiation therapy - On Anastrazole since 07/2014 7. History of cholecystectomy 8. History of total knee arthroplasty - R knee 9. Peripheral vascular disease - s/p stenting Femoral artery, 2008 10. Sleep Apnea ([facility] [id number]) 11. Benign essential hypertension 12. Thoracic aortic aneurysm without rupture 13. Hemifacial spasm of left facial nerve Review of Systems: 10 point ROS including constitutional, eyes, respiratory, cardiovascular, pulmonary, gastroenterology, genitourinary, integumentary, musculoskeletal, pschiatric were all negative except for pertinent positive noted in my HPI. Physical Exams: Vitals: BP: 135/79 (07/14/2023 13:14) P: 65 (07/14/2023 13:14) R: 16 (07/14/2023 13:14) T: 97.3 F [36.3 C] (05/18/2023 09:15) WT: 163.5 lb [74.16 kg] (07/14/2023 13:14) O2 Sat: 96% (07/14/2023 13:14) BMI: 31.5 BMI > 25 Assessment General: Pleasant FEMALE, in NAD REsp: lungs CAB CV: heart RRR, no mrg Assessment/Plan: The patient is a 88 yo FEMALE who comes in for follow up visit today. #. Atrial fibrillation -Slow regular rhythm today, do not suspect current A. fib -Zio patch to help assess current A. fib burden -Start apixaban, anticoagulation consult; needs to continue aspirin given history of coronary artery disease and peripheral arterial disease -Advised to avoid alcohol as prior episode of SVT and on this episode of A. fib appeared to have both been triggered by prior alcohol consumption #. Hypertension -Blood pressure has been at goal -We will alert RN to have radha stop Due for routine follow-up in August. Dominic Sales MD Staff Physician Section of Women's Health /baltazar/ Dominic Sales MD STAFF PHYSICIAN Signed: 07/20/2023 14:29 07/20/2023 ADDENDUM STATUS: COMPLETED done /baltazar/ MICKI JAIN REGISTERED NURSE Signed: 07/20/2023 14:35 DOMINIC TREJO [facility] Jul 14, 2023 02:03 PM ADMINISTRATIVE NOTE: LOCAL TITLE: AFTER VISIT SUMMARY NOTE STANDARD TITLE: ADMINISTRATIVE NOTE DICT DATE: JUL 14, 2023@14:03:55 ENTRY DATE: JUL 14, 2023@14:03:55 DICTATED BY: WEI TREJO EXP COSIGNER: URGENCY: STATUS: COMPLETED The patient was provided with a copy of an after-visit summary at the conclusion of the visit. A copy of the after-visit summary provided to the patient is available in [facility]. SCANNED DOCUMENT SIGNATURE NOT REQUIRED Electronically Filed: 07/14/2023 by: Dominic Sales MD STAFF PHYSICIAN DOMINIC TREJO [facility] Jul 14, 2023 01:28 PM [facility] OUTPATIENT E & M NOTE: LOCAL TITLE: WOMEN'S CLINIC NOTE STANDARD TITLE: [facility] OUTPATIENT E & M NOTE DATE OF NOTE: JUL 14, 2023@13:28 ENTRY DATE: JUL 14, 2023@13:28:21 AUTHOR: WEI TREJO EXP COSIGNER: URGENCY: STATUS: COMPLETED [facility] NOTE Has ADDENDA Nurse's Notes Reviewed. Chief Complaint: ED f/u S: The patient is a 88 yo FEMALE who comes in today for ED f/u. Had onset of her heart pounding. Called 911. She notes she just laid and rested in the ED until things calmed down. Prior to this she'd had some wine. Discharge paperwork: New onset Atrial fibrillation on 06/25. Previously had an episode of SVT in 04/2022. Saw EP, but decided against ablation as was able to resolve with Valsalva maneuver. This episode was also preceded by drinking wine. Has had a little bit of a cough at night, so has been taking dextromethorphan at night. Has diarrhea right away after she has breakfast (cereal and eggs and orange juice). Wihtin 45-60min. Doesn't get diarrhea after other meals. Past medical history/Active Problems: Active Problems: Active [...] 4. Polymyalgia rheumatica 5. Prediabetes ([facility] [id number]) 6. 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 - pT1c, N0, M0-Stage 1A - s/p lumpectomy 06/2014, radiation therapy - On Anastrazole since 07/2014 7. History of cholecystectomy 8. History of total knee arthroplasty - R knee 9. Peripheral vascular disease - s/p stenting Femoral artery, 2008 10. Sleep Apnea ([facility] [id number]) 11. Benign essential hypertension 12. Thoracic aortic aneurysm without rupture 13. Hemifacial spasm of left facial nerve Review of Systems: 10 point ROS including constitutional, eyes, respiratory, cardiovascular, pulmonary, gastroenterology, genitourinary, integumentary, musculoskeletal, pschiatric were all negative except for pertinent positive noted in my HPI. Physical Exams: Vitals: BP: 135/79 (07/14/2023 13:14) P: 65 (07/14/2023 13:14) R: 16 (07/14/2023 13:14) T: 97.3 F [36.3 C] (05/18/2023 09:15) WT: 163.5 lb [74.16 kg] (07/14/2023 13:14) O2 Sat: 96% (07/14/2023 13:14) BMI: 31.5 BMI > 25 Assessment General: Pleasant FEMALE, in NAD REsp: lungs CAB CV: heart RRR, no mrg Assessment/Plan: The patient is a 88 yo FEMALE who comes in for follow up visit today. #. Atrial fibrillation -Slow regular rhythm today, do not suspect current A. fib -Zio patch to help assess current A. fib burden -Start apixaban, anticoagulation consult; needs to continue aspirin given history of coronary artery disease and peripheral arterial disease -Advised to avoid alcohol as prior episode of SVT and on this episode of A. fib appeared to have both been triggered by prior alcohol consumption #. Hypertension -Blood pressure has been at goal -We will alert RN to have radha stop Due for routine follow-up in August. Dominic Sales MD Staff Physician Section of [facility] /baltazar/ Dominic Sales MD STAFF PHYSICIAN Signed: 07/20/2023 14:29 07/20/2023 ADDENDUM STATUS: COMPLETED Patient would like to stop Radha at this time. Thanks. /baltazar/ Dominic Sales MD STAFF PHYSICIAN Signed: 07/20/2023 14:29 Receipt Acknowledged By: 07/20/2023 14:35 /baltazar/ MICKI JAIN REGISTERED NURSE 07/20/2023 ADDENDUM STATUS: COMPLETED done /baltazar/ MICKI JAIN REGISTERED NURSE Signed: 07/20/2023 14:35 DOMINIC TREJO [facility] Jul 14, 2023 01:16 PM [facility]: LOCAL TITLE: [facility] NURSING NOTE STANDARD TITLE: [facility] NURSING OUTPATIENT NOTE DATE OF NOTE: JUL 14, 2023@13:16 ENTRY DATE: JUL 14, 2023@13:16:20 AUTHOR: MALCOLM VALLADARES COSIGNER: URGENCY: STATUS: COMPLETED TYPE OF VISIT: Appointment Check In Type of appointment: In-person appointment REASON FOR VISIT: [facility]. ED f/u - increase chest discomfort and light headedness ALLERGIES: Patient has answered NKA VITAL SIGNS: Blood Pressure: 135/79 (07/14/2023 13:14) Pulse: 65 (07/14/2023 13:14) Respiration: 16 (07/14/2023 13:14) Temperature: 97.3 F [36.3 C] (05/18/2023 09:15) Weight: 163.5 lb [74.16 kg] (07/14/2023 13:14) Height: 60.5 in [153.7 cm] (03/15/2023 10:08) BMI: 31.5 O2 Sat: 96% (07/14/2023 13:14) Pain: 0 (07/14/2023 13:14) PAIN SCREEN: Patient is not having significant pain that they wish to discuss with their provider today. MEDICATION Over the Counter/Herbal Medications: The patient denies taking any outside medications or herbals. Homelessness/Food Insecurity Screen: In the past 2 months, have you been living in stable housing that you own, rent, or stay in as part of a household? Yes - Living in stable housing. Are you worried or concerned that in the next 2 months you may NOT have stable housing that you own, rent, or stay in as part of a household? No - Not worried about housing near future [facility] [place] reports the following: Within the past 12 months, you worried whether your food would run out before you got money to buy more. Never true Within the past 12 months, the food you bought just didn't last and you didn't have money to get more. Never true Food Insecurity Resources /es/ MALCOLM VALLADARES LPN LICENSED PRACTICAL NURSE Signed: 07/14/2023 13:18 MALCOLM VALLADARES [facility]
--- OUTSIDE RECORDS SUMMARY | 2023-09-22 15:46 | XMS_ITS | Encounter Summary ---
Author Name [facility] Organization [facility] Address [address] [place] [address] Insurance Providers: All historical and current Section [...] Name Patient's Relationship to Policy Talavera [facility] ([id number]) PRESCRIPT ION GEHA May [birth year] 2005 [id number] SONIA MOBLEY PATIENT GEHA (SECONDARY ) PREFERRED PROVIDER ORGANIZAT ION (PPO) GEHA A&B PRIMA RY May 30, 2005 [id number] [phone] SONIA MOBLEY PATIENT GEHA (SECONDARY ) PREFERRED PROVIDER ORGANIZAT ION (PPO) GEHA A/B PRIMA RY May 30, 2005 [id number] SONIA MOBLEY PATIENT [facility] PREFERRED PROVIDER ORGANIZAT ION (PPO) DO NOT USE May 30, 2005 [id number] TONI BRITO PATIENT MEDICARE (WNR) MEDICARE (M) PART A Jan 29, 2000 PART A [id number] [phone] SONIA MOBLEY PATIENT MEDICARE (WNR) MEDICARE (M) PART B Jan 29, 2000 PART B [id number] [phone] SONIA MOBLEY PATIENT Selected Encounter This section includes the information on record at [place] for the Encounter. Date/Time Encounter Type Encounter Description Reason Provider Source Aug 09, 2023 12:25 PM EXT ECG>[id number] REV&INTERPJ AMB ECG MONITORING ICD-10-CM I47.10 Supraventricular tachycardia, unspecified ERINANASTASIIAJUANCHO A May Encounter Template Text not used by [place] Assessments - Encounter Diagnoses This section includes the primary and secondary diagnoses documented for the Encounter. Date/Time Primary/Secondary Diagnosis Diagnosis Name Provider Source Aug 19, 2023 03:48 PM PRIMARY Supraventricular tachycardia, unspecified JUANCHO KHAN [facility] Plan of Treatment: Future Appointments (+ 6 months) and Future Tests (+/- 45 days) The Plan of Treatment section includes future care activities for the patient from all [place] [facility]. This section includes future appointments and future orders which are active, pending or scheduled. Future Appointments This section includes appointments that were scheduled to occur 6 months from the date of the Encounter, up to a maximum of 20 appointments. The data comes from all [place] treatment facilities. Appointment Date/Time Appointment Type Appointme nt Facility Name Sep 09, 2023 08:00 AM AMBULATORY - NONE [facility] Sep 12, 2023 09:30 AM AMBULATORY - NONE [facility] Sep 12, 2023 10:30 AM AMBULATORY - MEDICINE [facility] Sep 26, 2023 09:00 AM AMBULATORY - SURGERY [facility] October 04, 2023 05:00 PM AMBULATORY - NONE [facility] Nov 10, 2023 10:30 AM AMBULATORY - REHAB MEDICIN E [facility] Lab Results: +/- 30 days of the encounter This section includes the Chemistry and Hematology Lab Results on record with [place] for the patient. Radiology Reports and Pathology Reports are provided separately, in subsequent sections. Lab Results This section contains the Chemistry/Hematology Results that were resulted 30 days before or 30 daysafter the date of the Encounter. Date/Time Source Result Type Result - Unit Interpretation Reference Range Comment Aug 09, 2023 08:50 AM [facility] AST/SGOT Specimen Type: PLASMA No comment entered. Ordering Provider: SUZIE NELSON Report Released Date/Time: Jul 29, 2023 11:58 AM Reporting Lab: [facility] [id number] Performing Lab: [facility] [id number] AST/SGOT 28 <34 Aug 09, 2023 08:50 AM [facility] CREATININE(INCLUDES EGFR) Specimen Type: PLASMA No comment entered. Ordering Provider: SUZIE NELSON Report Released Date/Time: Jul 29, 2023 11:58 AM Reporting Lab: [facility] [id number] Performing Lab: [facility] [id number] CREATININE 0.7 0.5-1.0 .CREAT EGFR(CKD-EPI ) 83 >60 Aug 09, 2023 08:50 AM [facility] CBC Specimen Type: BLOOD No comment entered. Ordering Provider: SUZIE NELSON Report Released Date/Time: Jul 29, 2023 11:58 AM Reporting Lab: [facility] [id number] Performing Lab: [facility] [id number] WBC 5.92 4.0-11.0 RBC 4.72 4.0-5.4 HGB 13.9 11.5-16 HCT 40.3 34.5-48 MCV 85.4 80-100 MCH 29.4 27-33 MCHC 34.5 32.0-37.5 PLT 211 150-400 MPV 9.2 7.4-10.4 RDW 13.3 11.5-14.5 Aug 09, 2023 08:50 AM [facility] ALT/SGPT Specimen Type: PLASMA No comment entered. Ordering Provider: SUZIE NELSON Report Released Date/Time: Jul 29, 2023 11:58 AM Reporting Lab: [facility] [phone] Performing Lab: [facility] [phone] ALT/SGPT 21 <55 Vital Signs: All taken on the encounter date This section contains inpatient and outpatient Vital Signs collected on the date of the Encounter. Date/Time Temperature Pulse Blood Pressure Respiratory Rate SP02 Pain Height Weight Body Mass Index Source Aug 09, 2023 10:51 AM 97.8 68 136/78 16 97 0 [facility] Social History: Smoking Status (Most current) and [...] 18, 2022 10:00 AM VA-TOBACCO NEVER USED [facility] Tobacco Use History This section includes a history of the smoking, or tobacco-related health factors, that were collected on or before the date of the Encounter. The data comes from the [place] facility where the Encounter took place. Date/Time Smoking Status/Tobacco Use Comment F acility September 28, 2021 09:30 AM VA-TOBACCO NEVER USED [facility] Nov 10, 2020 08:30 AM VA-TOBACCO NEVER USED [facility] Encounter Notes: All associated encounter notes This section contains the clinical notes associated to the Encounter. Date/Time Encounter Note(s) Provider Source Aug 09, 2023 12:25 PM CARDIOLOGY DIAGNOS TIC STUDY CONSULT: LOCAL TITLE: EKG CONSULT STANDARD TITLE: CARDIOLOGY DIAGNOSTIC STUDY CONSULT DATE OF NOTE: AUG 09, 2023@12:25 ENTRY DATE: AUG 09, 2023@12:25:17 AUTHOR: JUANCHO KHAN EXP COSIGNER: URGENCY: STATUS: COMPLETED Event monitor ([employer]iop[employer]) ECG REPORT 14 day heart monitor July 14 through July 28, 2023 INDICATION: Atrial fibrillation HEART RATE MIN 46 AVERAGE 70 MAX 115 PVC% <1% PAC% <1% INTERPRETATION 1. The underlying rhythm is sinus 2. There were 0 patient reported events 3. There was a single 11 beat run of nonsustained VT 4. There were 64 episodes of SVT, the longest was 9 beats 5. No atrial fibrillation detected /es/ JUANCHO KHAN MD PHYSICIAN Signed: 08/09/2023 12:27 JUANCHO KHAN [facility]
--- OUTSIDE RECORDS SUMMARY | 2023-09-22 15:46 | XMS_ITS | Encounter Summary ---
Author Name [facility] Organization [facility] Address [address] [place] [address] Insurance Providers: All historical and current Section Date Range: From patient's date of to the date document was created. This section includes the names of all active insurance providers for the patient. Insurance Provider Type of Coverage Plan Name Start of Policy Coverage End of Policy Coverage Group Number Member ID Insurance Provider's Telephone Number Policy Talavera's Name Patient's Relationship to Policy Talavera RAFAELLAWRENCE ([id number]) PRESCRIPT ION GEHA May 30, 2005 [id number] [phone] SONIA GUTIERRES PATIENT GEHA (SECONDARY ) PREFERRED PROVIDER ORGANIZAT ION (PPO) GEHA A&B PRIMA RY May 30, 2005 [id number] SONIA GUTIERRES PATIENT GEHA (SECONDARY ) PREFERRED PROVIDER ORGANIZAT ION (PPO) GEHA A/B PRIMA RY May 30, 2005 [id number] SONIA GUTIERRES PATIENT [facility] PREFERRED PROVIDER ORGANIZAT ION (PPO) DO NOT USE May 30, 2005 [id number] TONI BRITO PATIENT MEDICARE (WNR) MEDICARE (M) PART A Jan 29, 2000 PART A [id number] [phone] SONIA GUTIERRES PATIENT MEDICARE (WNR) MEDICARE (M) PART B Jan 29, 2000 PART B [id number] [phone] SONIA GUTIERRES PATIENT Selected Encounter This section includes the information on record at [place] for the Encounter. Date/Time Encounter Type Encounter Description Reason Provider Source Aug 09, 2023 11:00 AM OFFICE O/P EST HI 40 MIN NEUROLOGY ICD-10-CM G51.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, left VITOR TOHRNE May Encounter Template Text not used by MD Assessments - Encounter Diagnoses This section includes the primary and secondary diagnoses documented for the Encounter. Date/Time Primary/Secondary Diagnosis Diagnosis Name Provider Source Aug 16, 2023 01:18 PM PRIMARY Clonic hemifacial spasm, left VITOR THORNE [facility] Plan of Treatment: Future Appointments (+ 6 months) and Future Tests (+/- 45 days) The Plan of Treatment section includes future care activities for the patient from [facility]. This section includes future appointments and future orders which are active, pending or scheduled. Future Appointments This section includes appointments that were scheduled to occur 6 months from the date of the Encounter, up to a maximum of 20 appointments. The data comes from all [place] treatment facilities. Appointment Date/Time Appointment Type Appointme nt Facility Name Sep 09, 2023 08:00 AM [facility] Sep 12, 2023 09:30 AM [facility] Sep 12, 2023 10:30 AM AMBULATORY - MEDICINE [facility] Sep 26, 2023 09:00 AM AMBULATORY - SURGERY [facility] [facility] October 04, 2023 05:00 PM [facility]ONE [facility] Nov 10, 2023 10:30 AM AMBULATORY - REHAB MEDICIN E [facility] Lab Results: +/- 30 days of the encounter This section includes the Chemistry and Hematology Lab Results on record with MD for the patient. Radiology Reports and Pathology Reports are provided separately, in subsequent sections. Lab Results This section contains the Chemistry/Hematology Results that were resulted 30 days before or 30 daysafter the date of the Encounter. Date/Time Source Result Type Result - Unit Interpretation Reference Range Comment Aug 09, 2023 08:50 AM [facility] CBC Specimen Type: BLOOD No comment entered. Ordering Provider: SUZIE NELSON Report Released Date/Time: Jul 29, 2023 11:58 AM Reporting Lab: [facility] [id number] Performing Lab: [facility] [id number] WBC 5.92 4.0-11.0 RBC 4.72 4.0-5.4 HGB 13.9 11.5-16 HCT 40.3 34.5-48 MCV 85.4 80-100 MCH 29.4 27-33 MCHC 34.5 32.0-37.5 PLT 211 150-400 MPV 9.2 7.4-10.4 RDW 13.3 11.5-14.5 Aug 09, 2023 08:50 AM [facility] CREATININE(INCLUDES EGFR) Specimen Type: PLASMA No comment entered. Ordering Provider: SUZIE NELSON Report Released Date/Time: Jul 29, 2023 11:58 AM Reporting Lab: [facility] [id number] Performing Lab: [facility] [id number] CREATININE 0.7 0.5-1.0 .CREAT EGFR(CKD-EPI ) 83 >60 Aug 09, 2023 08:50 AM [facility] ALT/SGPT Specimen Type: PLASMA No comment entered. Ordering Provider: SUZIE NELSON Report Released Date/Time: Jul 29, 2023 11:58 AM Reporting Lab: [facility] [id number] Performing Lab: [facility] [id number] ALT/SGPT 21 <55 Aug 09, 2023 08:50 AM [facility] AST/SGOT Specimen Type: PLASMA No comment entered. Ordering Provider: SUZIE NELSON Report Released Date/Time: Jul 29, 2023 11:58 AM Reporting Lab: [facility] [phone] Performing Lab: [facility] [phone] AST/SGOT 28 <34 Vital Signs: All taken on the encounter date This section contains inpatient and outpatient Vital Signs collected on the date of the Encounter. Date/Time Temperature Pulse Blood Pressure Respiratory Rate SP02 Pain Height Weight Body Mass Index Source Aug 09, 2023 10:51 AM 97.8 68 136/78 16 97 0 [facility] Social History: Smoking Status (Most current) [...] 28, 2021 09:30 AM VA-TOBACCO NEVER USED [facility] Nov 10, 2020 08:30 AM VA-TOBACCO NEVER USED [facility] Encounter Notes: All associated encounter notes This section contains the clinical notes associated to the Encounter. Date/Time Encounter Note(s) Provider Source Aug 09, 2023 11:20 AM NEUROLOGY ATTENDING NOTE: LOCAL TITLE: NEUROLOGY CLINIC NOTE STANDARD TITLE: NEUROLOGY ATTENDING NOTE DATE OF NOTE: AUG 09, 2023@11:20 ENTRY DATE: AUG 08, 2023@21:14:47 AUTHOR: VITOR THORNE EXP COSIGNER: URGENCY: STATUS: COMPLETED SUBJECT: MOVEMENT DISORDERS CLINIC FOLLOW-UP NOTE - BOTULINUM TOXIN INJECT MOVEMENT DISORDERS CLINIC FOLLOW-UP NOTE LAST VISIT: 05/09/2023 for initial botulinum toxin injections CHIEF COMPLAINT: left hemifacial spasm HISTORY OF PRESENT ILLNESS: Yariel Gutierres is an 88-year-old onset of left eye twitching starting in 2021. May also involve lower face. Increases with laying down or laying on her left side. It usually occurs when she reads. She returns to clinic after initial botulinum toxin injections for left hemifacial spasm 05/09/2023. Her son again accompanies her to clinic. They report significant benefit for hemifacial spasm from her first injections, with near complete control of spasm aside from some return of mild spasms that she notices only when she turns on her left side in bed. She did start to notice wearing off yesterday. No side effects. She had a brain MRI at [facility] 06/24/2023 REVIEW OF SYSTEMS: 10 system ROS was completed and is negative except as stated above. CURRENT MEDICATIONS: Active Outpatient Medications (including Supplies): Active Outpatient Medications Status 1) APIXABAN [...] LEAST 30 MINUTES PRIOR TO A MEAL 10) POISE PAD,MODERATE ABSORBENCY USE 1 PAD ACTIVE DIRECTED MOVEMENT DISORDERS MEDICATIONS: ALLERGIES: Patient has answered NKA PAST MEDICAL [...] - 2011 4. Polymyalgia rheumatica 5. Prediabetes ([facility] [id number]) 6. 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 - pT1c, N0, M0-Stage 1A - s/p lumpectomy 06/2014, radiation therapy - On Anastrazole since 07/2014 7. History of cholecystectomy 8. History of total knee arthroplasty - R knee 9. Peripheral vascular disease - s/p stenting Femoral artery, 2008 10. Sleep Apnea ([facility] [id number]) 11. Benign essential hypertension 12. 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 Atrial fibrillation 15. Long-term current use of anticoagulant FAMILY HISTORY: No neurological disorders. SOCIAL HISTORY: Lives in a [place] community in [place]. PHYSICAL EXAMINATION: Blood Pressure: 136/78 (08/09/2023 10:51) Pulse: 68 (08/09/2023 10:51) Respiration: 16 (08/09/2023 10:51) Temperature: 97.8 F [36.6 C] (08/09/2023 10:51) Weight: 163.5 lb [74.16 kg] (07/14/2023 13:14) Height: 60.5 in [153.7 cm] (03/15/2023 10:08) BMI: 31.5 Pain: 0 (08/09/2023 10:51) Neurological exam: Alert and oriented with fluent speech and no dysarthria. Able to provide an interval medical history. Very rare intermittent slight spasms of the left orbicularis oculi and orbicularis tyler, primarily when she was lying down on the examination table. Procedure: Botulinum toxin injection for treatment of [...] orbicularis tyler, lateral - 1 7. Left nasalis - 2 8. Left levator anguli tyler - 1 9. Left mentalis - 1 10. Left zygomaticus - 1 Total units injected: 17 Unavoidable waste: 83 Total units billed: 100 The patient tolerated the injections without difficulty. Toxin Used: Onabotulinumtoxin A, 100 unit vial Lot#: [id number] Expiration Date: 10/2025 Review of Imagin06/24/23 Brain MRI with and without contrast, trigeminal protocol ([facility]) - unfortunately, the radiologist focused on the trigeminal nerve, not the facial nerve. 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 This would fit with her finding of left hemifacial spasm. Otherwise there is no acute intracranial abnormality. 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 The is mild chornic microvascular ischemic changes, and moderate generalized volume loss with more advanced atrophy of the hippocampi. ASSESSMENT: Yariel Gutierres is an 88-year-old woman with left hemifacial with onset in 2021 who has had an excellent response to initial botulinum toxin injections. 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 Today we did repeat injections with slightly increased dose to reflect additional muscles noted with very mild intermittent spasms on exam today. RECOMMENDATIONS: Follow-up in 3 months for repeat injections 60 minutes was spent on the date of service reviewing records, evaluating the [id number] in clinic, performing the procedure, coordinating care, and documenting the encounter. /baltazar/ VITOR THORNE Physician Signed: 08/16/2023 13:18 VITOR THORNE [facility] Aug 09, 2023 10:53 AM NEUROLOGY NURSING OUTPATIENT NOTE: LOCAL TITLE: NEUROLOGY CLINIC NURSING NOTE STANDARD TITLE: NEUROLOGY NURSING OUTPATIENT NOTE DATE OF NOTE: AUG 09, 2023@10:53 ENTRY DATE: AUG 09, 2023@10:53:59 AUTHOR: ELISA GOLDSMITH COSIGNER: URGENCY: STATUS: COMPLETED Type of visit: Appointment Check In Reason for Visit: RTC Vital Signs: Blood Pressure: 136/78 (08/09/2023 10:51) Pulse: 68 (08/09/2023 10:51) Respiration: 16 (08/09/2023 10:51) Temperature: 97.8 F [36.6 C] (08/09/2023 10:51) Weight: 163.5 lb [74.16 kg] (07/14/2023 13:14) Height: 60.5 in [153.7 cm] (03/15/2023 10:08) BMI: 31.5 Pain: 0 (08/09/2023 10:51) Allergies: Patient has answered NKA Medications: Active Outpatient Medications and Supplies: Active Outpatient Medications (including Supplies): Active Outpatient Medications Status 1) APIXABAN [...] LEAST 30 MINUTES PRIOR TO A MEAL 10) POISE PAD,MODERATE ABSORBENCY USE 1 PAD ACTIVE DIRECTED Patient reports the following changes regarding the current pharmacy list of medications: The above medication list confirmed with patient. A copy of the above medication list given to the MD for review and update. Provider will give printed copy of medication list to patient with any changes documented on printed medication list. /baltazar/ ELISA GOLDSMITH LPN LPN Signed: 08/09/2023 10:54 ELISA GOLDSMITH [facility]
--- OUTSIDE RECORDS SUMMARY | 2023-09-22 15:46 | XMS_ITS | Encounter Summary ---
Author Name [facility] Organization [facility] Address [address] [place] [address] Insurance Providers: All historical and current Section [...] Relationship to Policy Talavera [facility] ([id number]) PRESCRIPT ION GEHA May 30, 2005 [id number] SONIA MOBLEY PATIENT GEHA (SECONDARY ) PREFERRED PROVIDER ORGANIZAT ION (PPO) GEHA A/B PRIMA RY May 30, 2005 [id number] SONIA MOBLEY PATIENT GEHA (SECONDARY ) PREFERRED PROVIDER ORGANIZAT ION (PPO) GEHA A&B PRIMA RY May 30, 2005 [id number] [phone] SONIA MOBLEY PATIENT [facility] PREFERRED PROVIDER ORGANIZAT ION (PPO) DO NOT USE May 30, 2005 [id number] TONI BRITO PATIENT MEDICARE (WNR) MEDICARE (M) PART A Jan 29, 2000 PART A [id number] [phone] SONIA MOBLEY PATIENT MEDICARE (WNR) MEDICARE (M) PART B Jan 29, 2000 PART B [id number] [phone] SONIA MOBLEY PATIENT Selected Encounter This section includes the information on record at [place] for the Encounter. Date/Time Encounter Type Encounter Description Reason Pro vider Source Jul 29, 2023 12:48 PM Outpatient Encounter TELEPHONE TRIAGE IHE Encounter Template Text not used by [place] Plan of Treatment: Future Appointments (+ 6 months) and Future Tests (+/- 45 days) The Plan of Treatment section includes future care activities for the patient from all [place] [facility]. This section includes future appointments and future orders which are active, pending or scheduled. Future Appointments This section includes appointments that were scheduled to occur 6 months from the date of the Encounter, up to a maximum of 20 appointments. The data comes from all [place] treatment facilities. Appointment Date/Time Appointment Type Appointme nt Facility Name Aug 03, 2023 07:01 AM [place]ORY [place]ONE [place] [facility] Aug 09, 2023 10:30 AM [place] [facility] Aug 09, 2023 11:00 AM AMBULATORY - REHAB MEDICIN E [facility] Sep 09, 2023 08:00 AM [place] [place]ONE [place] [facility] Sep 12, 2023 09:30 AM [place]ONE [place] [facility] Sep 12, 2023 10:30 AM [place] [facility] Sep 26, 2023 09:00 AM [place] [facility] October 04, 2023 05:00 PM [place]ONE [place] [facility] Nov 10, 2023 10:30 [facility] Results: +/- 30 days [...] Range Comment Aug 09, 2023 08:50 AM [facility] AST/SGOT Specimen Type: PLASMA No comment entered. Ordering Provider: SUZIE NELSON Report Released Date/Time: Jul 29, 2023 11:58 AM Reporting Lab: [facility] [address] Performing Lab: [facility] [address] AST/SGOT 28 <34 Aug 09, 2023 08:50 AM [facility] CREATININE(INCLUDES EGFR) Specimen Type: PLASMA No comment entered. Ordering Provider: SUZIE NELSON Report Released Date/Time: Jul 29, 2023 11:58 AM Reporting Lab: [facility] [address] Performing Lab: [facility] [address] CREATININE 0.7 0.5-1.0 .CREAT EGFR(CKD-EPI ) 83 >60 Aug 09, 2023 08:50 AM [facility] ALT/SGPT Specimen Type: PLASMA No comment entered. Ordering Provider: SUZIE NELSON Report Released Date/Time: Jul 29, 2023 11:58 AM Reporting Lab: [facility] [address] Performing Lab: [facility] [address] ALT/SGPT 21 <55 Aug 09, 2023 08:50 AM [facility] CBC Specimen Type: BLOOD No comment entered. Ordering Provider: SUZIE NELSON Report Released Date/Time: Jul 29, 2023 11:58 AM Reporting Lab: [facility] [address] Performing Lab: [facility] [address] WBC 5.92 4.0-11.0 RBC 4.72 4.0-5.4 HGB 13.9 11.5-16 HCT 40.3 34.5-48 MCV 85.4 80-100 MCH 29.4 27-33 MCHC 34.5 32.0-37.5 PLT 211 150-400 MPV 9.2 7.4-10.4 RDW 13.3 11.5-14.5 Social History: Smoking Status (Most current) and Tobacco Use (All prior to encounter date) This section includes the most current, and the historical, smoking and tobacco- related health factors from the [facility] where the Encounter took place. Current Smoking Status This section includes the most current smoking, or tobacco-related health factor, from the [place] facility where the Encounter took place. Date/Time Current Smoking Status Comment Robyn baez October 18, 2022 10:00 AM VA-TOBACCO NEVER USED [facility] Tobacco Use History This section includes a history of the smoking, or tobacco-related health factors, that were collected on or before the date of the Encounter. The data comes from the [place] facility where the Encounter took place. Date/Time Smoking Status/Tobacco Use Comment F acnelia September 28, 2021 09:30 AM VA-TOBACCO NEVER USED [facility] Nov 10, 2020 08:30 AM VA-TOBACCO NEVER USED [facility] Encounter Notes: All associated encounter notes This section contains the clinical notes associated to the Encounter. Date/Time Encounter Note(s) Provider Source Aug 02, 2023 10:33 AM ADDENDUM: LOCAL TITLE: Addendum STANDARD TITLE: ADDENDUM DATE OF NOTE: AUG 02, 2023@10:33:08 ENTRY DATE: AUG 02, 2023@10:33:09 AUTHOR: WEI TREJO EXP COSIGNER: URGENCY: STATUS: COMPLETED Pt should continue to take ASA given hx of coronary artery disease and peripheral arterial disease. While she is going to be on two different medications that thin the blood, they both serve different purposes and have different actions. /baltazar/ Natalia Sales MD STAFF PHYSICIAN Signed: 08/02/2023 10:33 Receipt Acknowledged By: 08/03/2023 13:46 /talat JAIN REGISTERED NURSE 08/03/2023 15:14 /baltazar/ SUZIE NELSON Pharm.D., BCPS Anticoagulation Clinical Pharmacist --- Original Document --- 07/29/23 CCC: SCHEDULING ADMINISTRATION: Primary Care Call Center Primary Care Provider Call. Please contact at the following number: [phone] This note was created by a V23 [facility] Call Center OPAL/CAMERON. Please do not alert this typewriter assembly and parts inspector by adding as a signer for future communications. Alerts are not monitored by this user, please reach out to [facility] Leadership instead if indicated. Phone number verified as correct. Dora requesting a call to discuss medication. /talat [email or web address] [facility] MSA Signed: 07/29/2023 12:49 Receipt Acknowledged By: 07/29/2023 15:13 /talat JAIN REGISTERED NURSE 07/29/2023 ADDENDUM STATUS: COMPLETED INR nurse had asked vet to check to see which provider recommended she stop taking ASA Per Vet she was told to stop ASA by ED provider she saw at [facility] PCP: please clarify if vet should remain off ASA /es/ MICKI JAIN REGISTERED NURSE Signed: 07/29/2023 15:13 Receipt Acknowledged By: 08/02/2023 10:33 /talat Sales MD STAFF PHYSICIAN 08/02/2023 10:53 /baltazar/ SUZIE NELSON PharmHansel, BCPS Anticoagulation Clinical Pharmacist 08/02/2023 ADDENDUM STATUS: COMPLETED Called and left VM with direct number for return call. /baltazar/ MARY VANEGAS RN REGISTERED NURSE Signed: 08/02/2023 11:28 08/03/2023 ADDENDUM STATUS: COMPLETED Vet informed of the above, no additional questions or concerns at this time. /baltazar/ MICKI JAIN REGISTERED NURSE Signed: 08/03/2023 13:48 08/03/2023 ADDENDUM STATUS: UNSIGNED You may not VIEW this UNSIGNED Addendum. NATALIA TREJO [facility] Jul 29, 2023 03:12 PM ADDENDUM: LOCAL TITLE: Addendum STANDARD TITLE: ADDENDUM DATE OF NOTE: JUL 29, 2023@15:12:44 ENTRY DATE: JUL 29, 2023@15:12:45 AUTHOR: MICKI JAIN COSIGNER: URGENCY: STATUS: COMPLETED INR nurse had asked vet to check to see which provider recommended she stop taking ASA Per Vet she was told to stop ASA by ED provider she saw at [facility] PCP: please clarify if vet should remain off ASA /es/ MICKI JAIN REGISTERED NURSE Signed: 07/29/2023 15:13 Receipt Acknowledged By: 08/02/2023 10:33 /talat Sales MD STAFF PHYSICIAN 08/02/2023 10:53 /baltazar/ SUZIE NELSON PharmHansel, BCPS Anticoagulation Clinical Pharmacist --- Original Document --- 07/29/23 CCC: SCHEDULING ADMINISTRATION: Primary Care Call Center Primary Care Provider Call. Please contact at the following number: [phone] This note was created by a [facility] AMSA/MSA. Please do not alert this typewriter assembly and parts inspector by adding as a signer for future communications. Alerts are not monitored by this user, please reach out to [facility] Leadership instead if indicated. Phone number verified as correct. requesting a call to discuss medication. /baltazar/ Haydee FERREIRA [facility] MSA Signed: 07/29/2023 12:49 Receipt Acknowledged By: 07/29/2023 15:13 /baltazar/ MICKI JAIN REGISTERED NURSE 08/02/2023 ADDENDUM STATUS: COMPLETED Pt should continue to take ASA given hx of coronary artery disease and peripheral arterial disease. While she is going to be on two different medications that thin the blood, they both serve different purposes and have different actions. /baltazar/ Natalia Sales MD STAFF PHYSICIAN Signed: 08/02/2023 10:33 Receipt Acknowledged By: * AWAITING SIGNATURE * MICKI JAIN * AWAITING SIGNATURE * SUZIE NELSON MARIA M [facility] Jul 29, 2023 12:48 PM ADMINISTRATIVE NOT E: LOCAL TITLE: CCC: SCHEDULING ADMINISTRATION STANDARD TITLE: ADMINISTRATIVE NOTE DATE OF NOTE: JUL 29, 2023@12:48 ENTRY DATE: JUL 29, 2023@12:48:39 AUTHOR: STAS CARDENAS EXP COSIGNER: URGENCY: STATUS: COMPLETED CCC: SCHEDULING ADMINISTRATION Has ADDENDA Primary Care Call Center Primary Care Provider Call. Please contact at the following number: [phone] This note was created by a [facility] AMSA/MSA. Please do not alert this typewriter assembly and parts inspector by adding as a signer for future communications. Alerts are not monitored by this user, please reach out to [facility] Leadership instead if indicated. Phone number verified as correct. requesting a call to discuss medication. /talat FERREIRA [facility] MSA Signed: 07/29/2023 12:49 Receipt Acknowledged By: 07/29/2023 15:13 /baltazar/ MICKI JAIN REGISTERED NURSE 07/29/2023 ADDENDUM STATUS: COMPLETED INR nurse had asked vet to check to see which provider recommended she stop taking ASA Per Vet she was told to stop ASA by ED provider she saw at [facility] PCP: please clarify if vet should remain off ASA /baltazar/ MICKI JAIN REGISTERED NURSE Signed: 07/29/2023 15:13 Receipt Acknowledged By: 08/02/2023 10:33 /baltazar/ Natalia Sales MD STAFF PHYSICIAN 08/02/2023 10:53 /baltazar/ SUZIE NELSON Pharm.D., [facility] Anticoagulation Clinical Pharmacist 08/02/2023 ADDENDUM STATUS: COMPLETED Pt should continue to take ASA given hx of coronary artery disease and peripheral arterial disease. While she is going to be on two different medications that thin the blood, they both serve different purposes and have different actions. /baltazar/ Natalia Sales MD STAFF PHYSICIAN Signed: 08/02/2023 10:33 Receipt Acknowledged By: 08/03/2023 13:46 /baltazar/ MICKI JAIN REGISTERED NURSE * AWAITING SIGNATURE * SUZIE NELSON 08/02/2023 ADDENDUM STATUS: COMPLETED Called and left VM with direct number for return call. /baltazar/ MARY VANEGAS RN REGISTERED NURSE Signed: 08/02/2023 11:28 08/03/2023 ADDENDUM STATUS: COMPLETED Vet informed of the above, no additional questions or concerns at this time. /baltazar/ MICKI JAIN REGISTERED NURSE Signed: 08/03/2023 13:48 STAS CARDENAS [facility]
--- OUTSIDE RECORDS SUMMARY | 2023-09-22 15:46 | XMS_ITS | Encounter Summary ---
Author Name [facility] Organization [facility] Address [address] [place] [address] Insurance Providers: All historical and current Section Date Range: From patient's date of to the date document was created. This section includes the names of all active insurance providers for the patient. Insurance Provider Type of Coverage Plan Name Start of Policy Coverage End of Policy Coverage Group Number Member ID Insurance Provider's Telephone Number Policy Talavera's Name Patient's Relationship to Policy Talavera [facility] ([id number]) PRESCRIPT ION GEHA May [birth year], 2005 [id number] SONIA MOBLEY PATIENT GEHA (SECONDARY ) PREFERRED PROVIDER ORGANIZAT ION (PPO) GEHA A&B PRIMA RY May 30, 2005 [id number] [phone] SONIA MOBLEY PATIENT GEHA (SECONDARY ) PREFERRED PROVIDER ORGANIZAT ION (PPO) GEHA A/B PRIMA RY May 30, 2005 [id number] SONIA MOBLEY PATIENT [facility] PREFERRED PROVIDER ORGANIZAT ION (PPO) DO NOT USE May 30, 2005 [id number] TONI BRITO PATIENT MEDICARE (WNR) MEDICARE (M) PART A Jan 29, 2000 PART A [id number] [phone] SONIA MOBLEY PATIENT MEDICARE (WNR) MEDICARE (M) PART B Jan 29, 2000 PART B [id number] [phone] SONIA MOBLEY PATIENT Selected Encounter This section includes the information on record at [place] for the Encounter. Date/Time Encounter Type Encounter Description Reason Pro vider Source Aug 14, 2023 11:08 AM Outpatient Encounter AUDIOLOGY IHE Encounter Template Text not used by [place] Plan of Treatment: Future Appointments (+ 6 months) and Future Tests (+/- 45 days) The Plan of Treatment section includes future care activities for the patient [facility] [place] [facility] This section includes future appointments [...] 09, 2023 08:00 AM AMBULATORY - NONE [facility] Sep 12, 2023 09:30 AM AMBULATORY - NONE [facility] Sep 12, 2023 10:30 AM [facility] Sep 26, 2023 09:00 AM [facility] October 04, 2023 05:00 PM AMBULATORY - NONE [facility] Nov 10, 2023 10:30 AM AMBULATORY - REHAB MEDICIN E [facility] Lab Results: +/- 30 days of the encounter This section includes the Chemistry and Hematology Lab Results on record with [place] for the patient. Radiology Reports and Pathology Reports are provided separately, in subsequent sections. Lab Results This section contains the Chemistry/Hematology Results that were resulted 30 days before or 30 daysafter the date of the Encounter. Date/Time Source Result Type Result - Unit Interpretation Reference Range Comment Sep 12, 2023 09:40 AM [facility] HEMOGLOBIN A1C Specimen Type: BLOOD Comment: Values obtained from A1C measurements can vary. For typical A1C assays, a reported value of 7.0 could actually be between 6.7 and 7.3 if measured by a reference method. A reported value of 9.0 could actually be between 8.7 and 9.3. Ref: http://www.ngs p.org/CAPdata. asp Ordering Provider: DOMINIC TREJO Report Released Date/Time: Mar 17, 2023 04:58 PM Reporting Lab: [facility] [address] Performing Lab: [facility] [address] HEMOGLOBIN A1C 5.8 4.0-6.0 Sep 12, 2023 09:40 AM [facility] BASIC METABOLIC PANEL+MG Specimen Type: PLASMA No comment entered. Ordering Provider: DOMINIC TREJO Report Released Date/Time: Mar 17, 2023 04:58 PM Reporting Lab: [facility] [address] Performing Lab: [facility] [address] CREATININE 0.6 0.5-1.0 UREA NITROGEN 7 7-20 GLUCOSE 98 70-100 SODIUM 139 136-145 POTASSIUM 3.5 3.5-5.1 CHLORIDE 104 98-107 CO2 29 22-29 CALCIUM 8.9 8.4-10.2 MAGNESIUM 1.8 1.6-2.6 ANION GAP 6 5-15 .CREAT EGFR(CKD-EPI) 86 >60 Sep 12, 2023 09:40 AM [facility] LIPID PANEL,NON-FASTING Specimen Type: PLASMA No comment entered. Ordering Provider: DOMINIC TREJO Report Released Date/Time: Mar 17, 2023 04:58 PM Reporting Lab: [facility] [address] Performing Lab: [facility] [address] CHOLESTEROL 210 H <199 .HDL 63 >50 LDL CALCULATION 121 H <99 VLDL CALCULATION 26 <29 NON HDL CHOLESTEROL 147 H <129 TRIG(NON FASTING) 132 <149 Aug 09, 2023 08:50 AM [facility] CREATININE(INCLUDES EGFR) Specimen Type: PLASMA No comment entered. Ordering Provider: SUZIE NELSON Report Released Date/Time: Jul 29, 2023 11:58 AM Reporting Lab: [facility] [address] Performing Lab: [facility] [address] CREATININE 0.7 0.5-1.0 .CREAT EGFR(CKD-EPI) 83 >60 Aug 09, 2023 08:50 AM [facility] CBC Specimen Type: BLOOD No comment entered. Ordering Provider: SUZIE NELSON Report Released Date/Time: Jul 29, 2023 11:58 AM Reporting Lab: [facility] [address] Performing Lab: [facility] [address] WBC 5.92 4.0-11.0 RBC 4.72 4.0-5.4 HGB 13.9 11.5-16 HCT 40.3 34.5-48 MCV 85.4 80-100 MCH 29.4 27-33 MCHC 34.5 32.0-37.5 PLT 211 150-400 MPV 9.2 7.4-10.4 RDW 13.3 11.5-14.5 Aug 09, 2023 08:50 AM [facility] AST/SGOT Specimen Type: PLASMA No comment entered. Ordering Provider: SUZIE NELSON Report Released Date/Time: Jul 29, 2023 11:58 AM Reporting Lab: [facility] [address] Performing Lab: [facility] [address] AST/SGOT 28 <34 Aug 09, 2023 08:50 AM [facility] ALT/SGPT Specimen Type: PLASMA No comment entered. Ordering Provider: SUZIE NELSON Report Released Date/Time: Jul 29, 2023 11:58 AM Reporting Lab: [facility] [address] Performing Lab: [facility] [address] ALT/SGPT 21 <55 Social History: Smoking Status [...] 2022 10:00 AM [facility]-TO[facility]ACCO [facility] Encounter. Date/Time Encounter Note(s) Provider Source Aug 14, 2023 11:08 AM REPORT OF CONTACT: LOCAL TITLE: APPOINTMENT SCHEDULING NOTE STANDARD TITLE: REPORT OF CONTACT DATE OF NOTE: AUG 14, 2023@11:08 ENTRY DATE: AUG 14, 2023@11:08:54 AUTHOR: DENICE NEWBY EXP COSIGNER: URGENCY: STATUS: COMPLETED Attempted to schedule Return to clinic (RTC) Contact attempt made to [place] 1st attempt Telephone 2nd attempt Letter - Sent letter by regular [place] mail to address on file: ALICE MOBLEY [address] [place] [place] [address] Left message on voice mail to call back to this number [phone] If calls back, schedule appt for: service /es/ DENICE NEWBY GAMING INVESTIGATOR Signed: 08/14/2023 11:09 DENICE NEWBY [facility]
--- OUTSIDE RECORDS SUMMARY | 2023-09-22 15:46 | XMS_ITS | Encounter Summary ---
Author Name [facility] Organization [facility] Address [address] [place] [address] Insurance Providers: All historical and current Section Date Range: From patient's date of to the date document was created. This section includes the names of all active insurance providers for the patient. Insurance Provider Type of Coverage Plan Name Start of Policy Coverage End of Policy Coverage Group Number Member ID Insurance Provider's Telephone Number Policy Talavera's Name Patient's Relationship to Policy Talavera [facility] ([id number]) PRESCRIPT ION GEHA May 30, 2005 [id number] SONIA MOBLEY PATIENT GEHA (SECONDARY ) PREFERRED PROVIDER ORGANIZAT ION (PPO) GEHA A/B PRIMA RY May 30, 2005 [id number] SONIA MOBLEY PATIENT GEHA (SECONDARY ) PREFERRED PROVIDER ORGANIZAT ION (PPO) GEHA A&B PRIMA RY May 30, 2005 [id number] [phone] SONIA MOBLEY PATIENT [facility] PREFERRED PROVIDER ORGANIZAT ION (PPO) DO NOT USE May 30, 2005 [id number] TONI BRITO PATIENT MEDICARE (WNR) MEDICARE (M) PART A Jan 29, 2000 PART A [id number] SONIA MOBLEY PATIENT MEDICARE (WNR) MEDICARE (M) PART B Jan 29, 2000 PART B [id number] [phone] SONIA MOBLEY PATIENT Selected Encounter This section includes the information on record at [place] for the Encounter. Date/Time Encounter Type Encounter Description Reason Pro vider Source Aug 09, 2023 02:07 PM Outpatient Encounter EVENT (HISTORICAL) IHE Encounter Template Text not used by [place] Plan of Treatment: Future Appointments (+ 6 months) and Future Tests (+/- 45 days) The Plan of Treatment section includes future care activities for the patient from all [place] [facility] This section includes future appointments and future [...] 12, 2023 10:30 AM AMBULATORY - MEDICINE [facility] Sep 26, 2023 09:00 AM AMBULATORY - SURGERY [facility] October 04, 2023 05:00 PM AMBULATORY - NONE [facility] Nov 10, 2023 10:30 AM AMBULATORY - REHAB MEDICIN E [facility] Lab Results: +/- 30 days of the encounter This section includes the Chemistry and Hematology Lab Results on record with [place] for the patient. Radiology Reports and Pathology Reports are provided separately, in subsequent sections. Lab Results This section contains the Chemistry/Hematology Results that were resulted 30 days before or 30 daysafter the date of the Encounter. Date/Time Source Result Type Result - Unit Interpretation Reference Range Comment Aug 09, 2023 08:50 AM [facility] CREATININE(INCLUDES EGFR) Specimen Type: PLASMA No comment entered. Ordering Provider: SUZIE NELSON Report Released Date/Time: Jul 29, 2023 11:58 AM Reporting Lab: [facility] [address] Performing Lab: [facility] [address] CREATININE 0.7 0.5-1.0 .CREAT EGFR(CKD-EPI ) 83 >60 Aug 09, 2023 08:50 AM [facility] AST/SGOT Specimen Type: PLASMA No comment entered. Ordering Provider: SUZIE NELSON Report Released Date/Time: Jul 29, 2023 11:58 AM Reporting Lab: [facility] [address] Performing Lab: [facility] [address] AST/SGOT 28 <34 Aug 09, 2023 08:50 AM [facility] CBC Specimen Type: BLOOD No comment entered. Ordering Provider: SUZIE NELSON Report Released Date/Time: Jul 29, 2023 11:58 AM Reporting Lab: [facility] [address] Performing Lab: [facility] [address] WBC 5.92 4.0-11.0 RBC 4.72 4.0-5.4 HGB 13.9 11.5-16 HCT 40.3 34.5-48 MCV 85.4 80-100 MCH 29.4 27-33 MCHC 34.5 32.0-37.5 PLT 211 150-400 MPV 9.2 7.4-10.4 RDW 13.3 11.5-14.5 Aug 09, 2023 08:50 AM [facility] ALT/SGPT Specimen Type: PLASMA No comment entered. Ordering Provider: SUZIE NELSON Report Released Date/Time: Jul 29, 2023 11:58 AM Reporting Lab: [facility] [address] Performing Lab: [facility] [address] ALT/SGPT 21 <55 Vital Signs: All taken on the encounter date This section contains inpatient and outpatient Vital Signs collected on the date of the Encounter. Date/Time Temperature Pulse Blood Pressure Respiratory Rate SP02 Pain Height Weight Body Mass Index Source Aug 09, 2023 10:51 AM 97.8 68 136/78 16 97 0 [facility] Social History: Smoking Status (Most [...] Facil ity October 18, 2022 10:00 AM OR-TOBACCO NEVER USED [facility] Tobacco Use [...] MEDICAL CENTER Nov 10, 2020 08:30 AM OR-TOBACCO NEVER USED [facility]
--- OUTSIDE RECORDS SUMMARY | 2023-09-22 15:47 | XMS_ITS | Encounter Summary ---
Author Name Department of [facility] Organization Department of [facility] Address [address] [place] [address] Insurance Providers: All historical and current Section Date Range: From patient's date of to the date document was created. This section includes the names of all active insurance providers for the patient. Insurance Provider Type of Coverage Plan Name Start of Policy Coverage End of Policy Coverage Group Number Member ID Insurance Provider's Telephone Number Policy Talavera's Name Patient's Relationship to Policy Talavera RAFAELCACHE ([id number]) PRESCRIPT ION GEHA May 30, 2005 [id number] SONIA MOBLEY PATIENT GEHA (SECONDARY ) PREFERRED PROVIDER ORGANIZAT ION (PPO) GEHA A&B PRIMA RY May 30, 2005 [id number] [phone] SONIA MOBLEY PATIENT GEHA (SECONDARY ) PREFERRED PROVIDER ORGANIZAT ION (PPO) GEHA A/B PRIMA RY May 30, 2005 [id number] [phone] SONIA MOBLEY PATIENT [facility] PREFERRED PROVIDER ORGANIZAT ION (PPO) DO NOT USE May 30, 2005 [id number] TONI BRITO PATIENT MEDICARE (WNR) MEDICARE (M) PART A Jan 29, 2000 PART A [id number] [phone] SONIA MOBLEY PATIENT MEDICARE (WNR) MEDICARE (M) PART B Jan 29, 2000 PART B [id number] [phone] SONIA MOBLEY PATIENT Selected Encounter This section includes the information on record at [facility] for the Encounter. Date/Time Encounter Type Encounter Description Reason Pro vider Source Jun 25, 2023 12:00 AM Outpatient Encounter ADMIN PAT ACTIVTIES (MASNONCT) IHE Encounter Template Text not used by [facility] Plan of Treatment: Future Appointments (+ 6 months) and Future Tests (+/- 45 days) The Plan of Treatment section includes future care activities [facility] the [facility] This section includes future appointments [...] AMBULATORY - SURGERY [facility] Jul 14, 2023 08:00 AM AMBULATORY - MEDICINE [facility] Jul 14, 2023 01:15 PM AMBULATORY - MEDICINE [facility] Aug 03, 2023 07:01 AM AMBULATORY - NONE [facility] Aug 09, 2023 10:30 AM AMBULATORY - NONE [facility] Aug 09, 2023 11:00 AM AMBULATORY - REHAB MEDICIN [facility] Sep 09, 2023 08:00 AM AMBULATORY - NONE [facility] Sep 12, 2023 09:30 AM [facility] Sep 12, 2023 10:30 AM [facility] Sep 26, 2023 09:00 AM AMBULATORY - SURGERY [facility] October 04, 2023 05:00 PM [facility] Nov 10, 2023 10:30 AM AMBULATORY - REHAB MEDICIN E [facility] Social History: Smoking Status (Most current) and Tobacco Use (All prior to encounter date) This section includes the most current, and the historical, smoking and tobacco- related health factors from the [facility] facility where the Encounter took place. Current Smoking Status This section includes the most current smoking, or tobacco-related health factor, from the [facility] facility where the Encounter took place. Date/Time Current Smoking Status Angela baez October 18, 2022 10:00 AM VA-TOBACCO NEVER USED [facility] Tobacco Use History This section includes a history of the smoking, or tobacco-related health factors, that were collected on or before the date of the Encounter. The data comes from the [facility] facility where the Encounter took place. Date/Time Smoking Status/Tobacco Use Comment F manoj September 28, 2021 09:30 AM VA-TOBACCO NEVER USED [facility] Nov 10, 2020 08:30 AM VA-TOBACCO NEVER USED [facility] Radiology Reports: +/- 30 days of the [...] the Encounter. The data comes from all [facility] treatment facilities. Date/Time Radiology Report Provider Source Jun 24, 2023 09:13 AM MRI-BRAIN (P): ALICE MOBLEY NASREEN [id number] -[id number] F Exm Date: JUN 24, 2023@09:13 Req Phys: VITOR THORNE Loc: [facility] NEURO [facility] MAT[facility] (Req'g Img Loc: OUTSOURCE MRI Service: Unknown (Case [id number] COMPLETE) NON VA MRI BRAIN (MRI Detailed) CPT:83348 Reason for Study: eval for lesion/dolichoectasia to explain L hemifacial spasm Clinical History: MRI BRAIN WITH & WITHOUT CONTRAST WITH FINE CUTS THROUGH CN VII Per Joint Commission Standards, by signing this diagnostic imaging request the ordering provider confirms they have considered patients age and recent imaging history. Did the ordering provider speak with a senior science consultant regarding this imaging exam? 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 History of breast cancer, giant cell arteritis. Responsible provider name and phone number to notify for critical findings if other than user placing the order and pager listed below: User placing orders pager: [phone] LAST CREATININE 0.6 (03/15/23) Allergies: Patient has answered NKA Report Status: Electronically Filed Date Reported: JUL 26, 2023 Report: This is an outside Imaging study and/or report imported for continuity of patient care. This Imaging study and/or report was not reviewed or verified by a [facility] Radiologist. Impression: This is an outside Imaging study and/or report imported for continuity of patient care. This Imaging study and/or report was not reviewed or verified by a [facility] Radiologist. Primary Diagnostic Code: VERIFIED BY: / *ELECTRONICALLY FILED* [facility] Encounter Notes: All associated encounter notes This section contains the clinical notes associated to the Encounter. Date/Time Encounter Note(s) Provider Source Jun 25, 2023 12:00 AM NONVA NOTE: LOCAL TITLE: LABORATORY NONVA NOTE STANDARD TITLE: NONVA NOTE DATE OF NOTE: JUN 25, 2023 ENTRY DATE: SEP 01, 2023@08:17:42 AUTHOR: AZIZA KILLIAN EXP COSIGNER: URGENCY: STATUS: COMPLETED VistA Imaging - Scanned Document This note contains attached LABORATORY scanned document(s) received from an outside facility. Open [facility] Display to review the document(s). /baltazar/ [facility] INFORMATION PEDIATRIC NURSE Signed: 09/01/2023 08:17 AZIZA KILLIAN [facility]
--- OUTSIDE RECORDS SUMMARY | 2023-09-22 15:47 | XMS_ITS | Encounter Summary ---
Author Name [facility] of [facility] Organization [facility] of [facility] Address [address] [place] [address] Insurance Providers: All historical and current Section [...] Patient's Relationship to Policy Talavera [facility] ([id number]) PRESCRIPT ION GEHA May 30, 2005 [id number] SONIA GUTIERRES PATIENT GEHA (SECONDARY ) PREFERRED PROVIDER ORGANIZAT ION (PPO) GEHA A/B PRIMA RY May 30, 2005 [id number] SONIA GUTIERRES PATIENT GEHA (SECONDARY ) PREFERRED PROVIDER ORGANIZAT ION (PPO) GEHA A&B PRIMA RY May 30, 2005 [id number] [phone] SONIA GUTIERRES PATIENT [facility] PREFERRED PROVIDER ORGANIZAT ION (PPO) DO NOT USE May 30, 2005 [id number] TONI BRITO PATIENT MEDICARE (WNR) MEDICARE (M) PART A Jan 29, 2000 PART A [id number] [phone] SONIA GUTIERRES PATIENT MEDICARE (WNR) MEDICARE (M) PART B Jan 29, 2000 PART B [id number] [phone] SONIA GUTIERRES PATIENT Selected Encounter This section includes the information on record at [facility] for the Encounter. Date/Time Encounter Type Encounter Description Reason Pro vider Source Sep 01, 2023 08:09 AM Outpatient Encounter TELEPHONE TRIAGE IHE Encounter Template Text not used by [facility] Plan of Treatment: Future Appointments (+ 6 months) and Future Tests (+/- 45 days) The Plan of Treatment section includes future care activities for the patient from all [facility]. This section includes future appointments and future orders which are active, pending or scheduled. Future Appointments This section includes appointments that were scheduled to occur 6 months from the date of the Encounter, up to a maximum of 20 appointments. The data comes from all [place] treatment facilities. Appointment Date/Time Appointment Type Appointme nt Facility Name Sep 09, 2023 08:00 AM [facility] Sep 12, 2023 09:30 AM AMBULATORY - NONE [facility] Sep 12, 2023 10:30 AM [facility] Sep 26, 2023 09:00 AM AMBULATORY - SURGERY [facility] October 04, 2023 05:00 PM AMBULATORY - NONE [facility] Nov 10, 2023 10:30 AM AMBULATORY - REHAB MEDICIN E [facility] Lab Results: +/- 30 days of the encounter This section includes the Chemistry and Hematology Lab Results on record with [place] for the patient. Radiology Reports and Pathology Reports are provided separately, in subsequent sections. Lab Results This section contains the Chemistry/Hematology Results that were resulted 30 days before or 30 daysafter the date of the Encounter. Date/Time Source Result Type Result - Unit Interpretation Reference Range Comment Sep 12, 2023 09:40 AM [facility] HEMOGLOBIN A1C Specimen Type: BLOOD Comment: Values [...] Mar 17, 2023 04:58 PM Reporting Lab: [facility] [id number] Performing Lab: [facility] [id number] HEMOGLOBIN A1C 5.8 4.0-6.0 Sep 12, 2023 09:40 AM [facility] LIPID PANEL,NON-FASTING Specimen Type: PLASMA No comment entered. Ordering Provider: DOMINIC TREJO Report Released Date/Time: Mar 17, 2023 04:58 PM Reporting Lab: [facility] [id number] Performing Lab: [facility] [phone] CHOLESTEROL 210 H <199 .HDL 63 >50 LDL CALCULATION 121 H <99 VLDL CALCULATION 26 <29 NON HDL CHOLESTEROL 147 H <129 TRIG(NON FASTING) 132 <149 Sep 12, 2023 09:40 AM [facility] BASIC METABOLIC PANEL+MG Specimen Type: PLASMA No comment entered. Ordering Provider: DOMINIC TREJO Report Released Date/Time: Mar 17, 2023 04:58 PM Reporting Lab: [facility] [id number] Performing Lab: [facility] [address] CREATININE 0.6 0.5-1.0 UREA NITROGEN 7 7-20 GLUCOSE 98 70-100 SODIUM 139 136-145 POTASSIUM 3.5 3.5-5.1 CHLORIDE 104 98-107 CO2 29 22-29 CALCIUM 8.9 8.4-10.2 MAGNESIUM 1.8 1.6-2.6 ANION GAP 6 5-15 .CREAT EGFR(CKD-EPI) 86 >60 Aug 09, 2023 08:50 AM [facility] CREATININE(INCLUDES EGFR) Specimen Type: PLASMA No comment entered. Ordering Provider: SUZIE NELSON Report Released Date/Time: Jul 29, 2023 11:58 AM Reporting Lab: [facility] [id number] Performing Lab: [facility] [phone] CREATININE 0.7 0.5-1.0 .CREAT EGFR(CKD-EPI) 83 >60 Aug 09, 2023 08:50 AM [facility] CBC Specimen Type: BLOOD No comment entered. Ordering Provider: SUZIE NELSON Report Released Date/Time: Jul 29, 2023 11:58 AM Reporting Lab: [facility] [id number] Performing Lab: [facility] [phone] WBC 5.92 4.0-11.0 RBC 4.72 4.0-5.4 HGB 13.9 11.5-16 HCT 40.3 34.5-48 MCV 85.4 80-100 MCH 29.4 27-33 MCHC 34.5 32.0-37.5 PLT 211 150-400 MPV 9.2 7.4-10.4 RDW 13.3 11.5-14.5 Aug 09, 2023 08:50 AM [facility] AST/SGOT Specimen Type: PLASMA No comment entered. Ordering Provider: SUZIE NELSON Report Released Date/Time: Jul 29, 2023 11:58 AM Reporting Lab: [facility] [address] Performing Lab: [facility] [id number] AST/SGOT 28 <34 Aug 09, 2023 08:50 AM [facility] ALT/SGPT Specimen Type: PLASMA No comment entered. Ordering Provider: SUZIE NELSON Report Released Date/Time: Jul 29, 2023 11:58 AM Reporting Lab: [facility] [phone] Performing Lab: [facility] [address] ALT/SGPT 21 <55 Social History: Smoking Status (Most current) and Tobacco Use (All prior to encounter date) This section includes the most current, and the historical, smoking and tobacco- related health factors from the [place] facility where the Encounter took place. Current Smoking Status This section includes the most current smoking, or tobacco-related health factor, from the [place] facility where the Encounter took place. Date/Time Current Smoking Status Comment Robyn baez October 18, 2022 10:00 AM [place]-TOBACCO NEVER USED [facility] Tobacco Use History This section includes a history of the smoking, or tobacco-related health factors, that were collected on or before the date of the Encounter. The data comes from the [place] facility where the Encounter took place. Date/Time Smoking Status/Tobacco Use Comment F acility September 28, 2021 09:30 AM VA-TOBACCO NEVER USED [facility] Nov 10, 2020 08:30 AM VA-TOBACCO NEVER USED [facility] Encounter Notes: All associated encounter notes This section contains the clinical notes associated to the Encounter. Date/Time Encounter Note(s) Provider Source Sep 01, 2023 09:48 AM ADDENDUM: LOCAL TITLE: Addendum STANDARD TITLE: ADDENDUM DATE OF NOTE: SEP 01, 2023@09:48:02 ENTRY DATE: SEP 01, 2023@09:48:03 AUTHOR: MICKI JAIN EXP COSIGNER: URGENCY: STATUS: COMPLETED family would like help with BP monitoring and med set up consult placed /baltazar/ MICKI JAIN REGISTERED NURSE Signed: 09/01/2023 09:48 Receipt Acknowledged By: 09/01/2023 09:55 /baltazar/ Dominic Sales MD STAFF PHYSICIAN --- Original Document --- 09/01/23 CCC: SCHEDULING ADMINISTRATION: Primary Care Call Center Primary Care Provider Call. Concerns addressed by family include Call recieved from [facility] with [facility] service in regards to getting HHC and detention set up for patient. Yariel Gutierres 4853 Please contact at the following number: [phone] perfecto [place] Other: Please return the call to perfecto newton This note was created by a V23 [facility] Call Center BRIANNEA/CAEMRON. Please do not alert this television writer by adding as a signer for future communications. Alerts are not monitored by this user, please reach out to [facility] Leadership instead if indicated. /baltazar/ [facility] CONTACT [facility] Signed: 09/01/2023 08:14 Receipt Acknowledged By: 09/01/2023 09:49 /baltazar/ MICKI JAIN REGISTERED NURSE MICKI JAIN [facility] Sep 01, 2023 08:09 AM ADMINISTRATIVE NOT E: LOCAL TITLE: CCC: SCHEDULING ADMINISTRATION STANDARD TITLE: ADMINISTRATIVE NOTE DATE OF NOTE: SEP 01, 2023@08:09 ENTRY DATE: SEP 01, 2023@08:09:33 AUTHOR: CALVIN MCKEONIGNER: URGENCY: STATUS: COMPLETED CCC: SCHEDULING ADMINISTRATION Has ADDENDA Primary Care Call Center Primary Care Provider Call. Concerns addressed by family include Call recieved from [facility] with [facility] service in regards to getting HHC and detention set up for patient. Yariel Gutierres 9813 Please contact at the following number: [phone] perfecto [place] Other: Please return the call to perfecto newton This note was created by a V23 [facility] Call Center OPAL/CAMERON. Please do not alert this television writer by adding as a signer for future communications. Alerts are not monitored by this user, please reach out to [facility] Leadership instead if indicated. /baltazar/ CALVIN PATEL 23 CLINICAL CONTACT CENTER Signed: 09/01/2023 08:14 Receipt Acknowledged By: 09/01/2023 09:49 /baltazar/ MICKI JAIN REGISTERED NURSE 09/01/2023 ADDENDUM STATUS: COMPLETED family would like help with BP monitoring and med set up consult placed /baltazar/ MICKI JAIN REGISTERED NURSE Signed: 09/01/2023 09:48 Receipt Acknowledged By: 09/01/2023 09:55 /baltazar/ Dominic Sales MD STAFF PHYSICIAN CALVIN MCKEON [facility]
--- OUTSIDE RECORDS SUMMARY | 2023-09-22 15:47 | XMS_ITS | Encounter Summary ---
Author Name Department of [facility]a [facility] Organization Department of Vetera Affairs Address [address] [place] [address] Insurance Providers: All historical and current Section [...] Relationship to Policy Talavera [facility] ([id number]) PRESCRIPT ION GEHA May [birth year], 2005 [id number] [phone] SONIA MOBLEY PATIENT GEHA (SECONDARY ) PREFERRED PROVIDER ORGANIZAT ION (PPO) GEHA A/B PRIMA RY May 30, 2005 [id number] [phone] SONIA MOBLEY PATIENT GEHA (SECONDARY ) PREFERRED PROVIDER ORGANIZAT ION (PPO) GEHA A&B PRIMA RY May 30, 2005 [id number] SONIA MOBLEY PATIENT [facility] PREFERRED PROVIDER ORGANIZAT ION (PPO) DO NOT USE May 30, 2005 [id number] TONI BRITO PATIENT MEDICARE (WNR) MEDICARE (M) PART A Jan 29, 2000 PART A [id number] [phone] SONIA MOBLEY PATIENT MEDICARE (WNR) MEDICARE (M) PART B Jan 29, 2000 PART B [id number] [phone] SONIA MOBLEY PATIENT Selected Encounter This section includes the information on record at MD for the Encounter. Date/Time Encounter Type Encounter Description Reason Pro vider Source Aug 30, 2023 10:01 AM Outpatient Encounter COMMUNITY CARE CONSULT IHE Encounter Template Text not used by MD Plan of Treatment: Future Appointments (+ 6 months) and Future Tests (+/- 45 days) The Plan of Treatment section includes future care activities for the patient [facility] This section includes future [...] 09, 2023 08:00 AM AMBULATORY - NONE [facility] Sep 12, 2023 09:30 AM AMBULATORY - NONE [facility] Sep 12, 2023 10:30 AM [facility] Sep 26, 2023 09:00 AM AMBULATORY - SURGERY [facility] October 04, 2023 05:00 PM AMBULATORY - NONE [facility] Nov 10, 2023 10:30 AM AMBULATORY - REHAB MEDICIN E [facility] Lab Results: +/- 30 days [...] Range Comment Sep 12, 2023 09:40 AM [facility] HEMOGLOBIN A1C Specimen Type: BLOOD [...] Mar 17, 2023 04:58 PM Reporting Lab: [facility] [place] [facility] [address] Performing Lab: [facility] [place] [facility] [address] HEMOGLOBIN A1C 5.8 4.0-6.0 Sep 12, 2023 09:40 AM [facility] LIPID PANEL,NON-FASTING Specimen Type: PLASMA No comment entered. Ordering Provider: DOMINIC TREJO Report Released Date/Time: Mar 17, 2023 04:58 PM Reporting Lab: [facility] [place] [facility] [address] Performing Lab: [facility] [place] [facility] [address] CHOLESTEROL 210 H <199 .HDL 63 >50 LDL CALCULATION 121 H <99 VLDL CALCULATION 26 <29 NON HDL CHOLESTEROL 147 H <129 TRIG(NON FASTING) 132 <149 Sep 12, 2023 09:40 AM [facility] BASIC METABOLIC PANEL+MG Specimen Type: PLASMA No comment entered. Ordering Provider: DOMINIC TREJO Report Released Date/Time: Mar 17, 2023 04:58 PM Reporting Lab: [facility] [place] [facility] [address] Performing Lab: [facility] [place] [facility] [address] CREATININE 0.6 0.5-1.0 UREA NITROGEN 7 7-20 GLUCOSE 98 70-100 SODIUM 139 136-145 POTASSIUM 3.5 3.5-5.1 CHLORIDE 104 98-107 CO2 29 22-29 CALCIUM 8.9 8.4-10.2 MAGNESIUM 1.8 1.6-2.6 ANION GAP 6 5-15 .CREAT EGFR(CKD-EPI) 86 >60 Aug 09, 2023 08:50 AM [facility] AST/SGOT Specimen Type: PLASMA No comment entered. Ordering Provider: SUZIE NELSON Report Released Date/Time: Jul 29, 2023 11:58 AM Reporting Lab: [facility] [place] [facility] [address] Performing Lab: [facility] [place] [facility] [address] AST/SGOT 28 <34 Aug 09, 2023 08:50 AM [facility] CREATININE(INCLUDES EGFR) Specimen Type: PLASMA No comment entered. Ordering Provider: SUZIE NELSON Report Released Date/Time: Jul 29, 2023 11:58 AM Reporting Lab: [facility] [place] [facility] [address] Performing Lab: [facility] [place] [facility] [address] CREATININE 0.7 0.5-1.0 .CREAT EGFR(CKD-EPI) 83 >60 Aug 09, 2023 08:50 AM [facility] CBC Specimen Type: BLOOD No comment entered. Ordering Provider: SUZIE NELSON Report Released Date/Time: Jul 29, 2023 11:58 AM Reporting Lab: [facility] [place] [facility] [address] Performing Lab: [facility] [place] [facility] [address] WBC 5.92 4.0-11.0 RBC 4.72 4.0-5.4 HGB 13.9 11.5-16 HCT 40.3 34.5-48 MCV 85.4 80-100 MCH 29.4 27-33 MCHC 34.5 32.0-37.5 PLT 211 150-400 MPV 9.2 7.4-10.4 RDW 13.3 11.5-14.5 Aug 09, 2023 08:50 AM [facility] ALT/SGPT Specimen Type: PLASMA No comment entered. Ordering Provider: SUZIE NELSON Report Released Date/Time: Jul 29, 2023 11:58 AM Reporting Lab: [facility] [place] [facility] [address] Performing Lab: [facility] [place] [facility] [address] ALT/SGPT 21 <55 Social History: Smoking Status [...] AM VA-TOBACCO NEVER USED [facility] Encounter Notes: All associated encounter notes This section contains the clinical notes associated to the Encounter. Date/Time Encounter Note(s) Provider Source Aug 30, 2023 10:01 AM NONVA NOTE: LOCAL TITLE: [facility] UNABLE TO CONTACT LETTER (AUTOPRINT) STANDARD TITLE: NONVA NOTE DATE OF NOTE: AUG 30, 2023@10:01 ENTRY DATE: AUG 30, 2023@10:01:14 AUTHOR: JOSE MARTINEZIGNER: URGENCY: STATUS: COMPLETED Aug ALICE MOBLEY [address] [place], [place] [address] Dear ALICE MOBLEY, Your Community Care team was unsuccessful in reaching you by telephone, left voice message. This is regarding your referral for AUDIOLOGY. It is important to contact your community care team so we can assist you in meeting your health care needs. You have been referred to care in the community, but you must contact us first. This referral authorization will be canceled in 14 days from the date of this letter if your community care team does not hear from you. Please note: This letter is only used to inform you of our attempt to contact you for care in the community. If you receive this letter after an appointment has been made for you or if you have spoken to [facility], please disregard this letter and dispose of properly. If you have questions regarding your care, please contact [facility] Office of Community Care by calling [phone] during the hours of 8:30AM - 3:00PM. Thank you for the opportunity to serve you. Sincerely, MD Community Care (VACC) /baltazar/ OMARI JOSEPH Signed: 08/30/2023 10:02 OMARI MARTINEZ [facility]
--- OUTSIDE RECORDS SUMMARY | 2023-09-22 15:47 | XMS_ITS | Encounter Summary ---
Author Name Department of Vetera [facility] Organization Department of Vetera Affairs Address [address] [place] [address] Insurance Providers: All historical and current Section [...] Relationship to Policy Talavera [facility] ([id number]) PRESCRIPT ION GEHA May 30, 2005 [id number] SONIA MOBLEY PATIENT GEHA (SECONDARY ) PREFERRED PROVIDER ORGANIZAT ION (PPO) GEHA A/B PRIMA RY May 30, 2005 [id number] SONIA MOBLEY PATIENT GEHA (SECONDARY ) PREFERRED PROVIDER ORGANIZAT ION (PPO) GEHA A&B PRIMA RY May 30, 2005 [id number] SONIA MOBLEY PATIENT [facility] PREFERRED PROVIDER ORGANIZAT ION (PPO) DO NOT USE May 30, 2005 [id number] TONI BRITO PATIENT MEDICARE (WNR) MEDICARE (M) PART A Jan 29, 2000 PART A [id number] [phone] SONIA MOBLEY PATIENT MEDICARE (WNR) MEDICARE (M) PART B Jan 29, 2000 PART B [id number] [phone] SONIA MOBLEY PATIENT Selected Encounter This section includes the information on record at OR for the Encounter. Date/Time Encounter Type Encounter Description Reason Pro vider Source Sep 02, 2023 08:46 AM Outpatient Encounter COMMUNITY CARE CONSULT IHE Encounter Template Text not used by OR Plan of Treatment: Future Appointments (+ 6 months) and Future Tests (+/- 45 days) The Plan of Treatment section includes future care activities for the [facility] This section includes future appointments [...] 09, 2023 08:00 AM AMBULATORY - NONE [facility] Sep 12, 2023 09:30 AM AMBULATORY - NONE [facility] Sep 12, 2023 10:30 AM [facility] Sep 26, 2023 09:00 AM [facility] October 04, 2023 05:00 PM AMBULATORY - NONE [facility] Nov 10, 2023 10:30 AM AMBULATORY - REHAB MEDICIN E [facility] Lab Results: +/- 30 days of [...] Range Comment Sep 12, 2023 09:40 AM [facility] HEMOGLOBIN A1C Specimen Type: BLOOD Comment: [...] Mar 17, 2023 04:58 PM Reporting Lab: [facility] [phone] Performing Lab: [facility] [address] HEMOGLOBIN A1C 5.8 4.0-6.0 Sep 12, 2023 09:40 AM [facility] BASIC METABOLIC PANEL+MG Specimen Type: PLASMA No comment entered. Ordering Provider: DOMINIC TREJO Report Released Date/Time: Mar 17, 2023 04:58 PM Reporting Lab: [facility] [address] Performing Lab: [facility] [address] CREATININE 0.6 0.5-1.0 UREA NITROGEN 7 7-20 GLUCOSE 98 70-100 SODIUM 139 136-145 POTASSIUM 3.5 3.5-5.1 CHLORIDE 104 98-107 CO2 29 22-29 CALCIUM 8.9 8.4-10.2 MAGNESIUM 1.8 1.6-2.6 ANION GAP 6 5-15 .CREAT EGFR(CKD-EPI) 86 >60 Sep 12, 2023 09:40 AM [facility] LIPID PANEL,NON-FASTING Specimen Type: PLASMA No comment entered. Ordering Provider: DOMINIC TREJO Report Released Date/Time: Mar 17, 2023 04:58 PM Reporting Lab: [facility] [id number] Performing Lab: [facility] [address] CHOLESTEROL 210 H <199 .HDL 63 >50 LDL CALCULATION 121 H <99 VLDL CALCULATION 26 <29 NON HDL CHOLESTEROL 147 H <129 TRIG(NON FASTING) 132 <149 Aug 09, 2023 08:50 AM [facility] AST/SGOT Specimen Type: PLASMA No comment entered. Ordering Provider: SUZIE NELSON Report Released Date/Time: Jul 29, 2023 11:58 AM Reporting Lab: [facility] [phone] Performing Lab: [facility] [address] AST/SGOT 28 <34 Aug 09, 2023 08:50 AM [facility] CREATININE(INCLUDES EGFR) Specimen Type: PLASMA No comment entered. Ordering Provider: SUZIE NELSON Report Released Date/Time: Jul 29, 2023 11:58 AM Reporting Lab: [facility] [id number] Performing Lab: [facility] [address] CREATININE 0.7 0.5-1.0 .CREAT EGFR(CKD-EPI) 83 >60 Aug 09, 2023 08:50 AM [facility] CBC Specimen Type: BLOOD No comment entered. Ordering Provider: SUZIE NELSON Report Released Date/Time: Jul 29, 2023 11:58 AM Reporting Lab: [facility] [address] Performing Lab: [facility] [address] WBC 5.92 4.0-11.0 RBC 4.72 4.0-5.4 HGB 13.9 11.5-16 HCT 40.3 34.5-48 MCV 85.4 80-100 MCH 29.4 27-33 MCHC 34.5 32.0-37.5 PLT 211 150-400 MPV 9.2 7.4-10.4 RDW 13.3 11.5-14.5 Aug 09, 2023 08:50 AM [facility] ALT/SGPT Specimen Type: PLASMA No comment entered. Ordering Provider: SUZIE NELSON Report Released Date/Time: Jul 29, 2023 11:58 AM Reporting Lab: [facility] [address] Performing Lab: [facility] [address] ALT/SGPT 21 <55 Social History: Smoking Status [...] NEVER USED [facility] Encounter Notes: All associated encounter notes This section contains the clinical notes associated to the Encounter. Date/Time Encounter Note(s) Provider Source Sep 02, 2023 08:46 AM NONVA NOTE: LOCAL TITLE: [facility] PRE-AUTH LETTER (AUTOPRINT) STANDARD TITLE: NONVA NOTE DATE OF NOTE: SEP 02, 2023@08:46 ENTRY DATE: SEP 02, 2023@08:46:29 AUTHOR: WAYNE SMITH COSIGNER: URGENCY: STATUS: COMPLETED Aug ALICE MOBLEY [address] [place], [place] [address] Dear ALICE MOBLEY, Your VA provider has referred you to a provider within the community for care. Your medical care for [facility] has been authorized with the community care provider listed below. DO NOT REPORT TO THE OR MEDICAL CENTER Provider info: Care has been approved for the following vendor: Office name, address, and phone number: [facility] [employer] [address] [place] [address] Please contact the identified provider to schedule your community appointment. If you need assistance with this appointment, please call your facility community care office [facility] Office of Community Care at [phone] during the hours of 8:30AM - 3:00PM. Please follow up with your local [facility] community care office once this is scheduled. This step is needed to ensure your referral duration is maximized and the OR has accurate referral information for billing purposes. Authorization Number: [id number] Referral Issue Date: Jul Expiration Date: Jul (subject to change based on first appointment) If you are unable to schedule this appointment or the appointment is no longer needed, please contact the community provider above for notification/rescheduling and then call the [facility] Office [facility] Community Care at [phone] during the hours of 8:30AM - 3:00PM. If you need additional care/services not mentioned above or your authorization has and additional care is needed, please contact your primary care provider for a new referral. To review all care/service(s) approved under your referral, please go to the following link: [employer] [facility](Young[employer]) Co-Payments: If you are required to pay a VA co-payment, you will be billed by the VA for each authorized visit that you attend. However, you are NOT REQUIRED to make co-payments to a community provider. Thank you for the opportunity to serve you. Sincerely, [facility] (VACC) /baltazar/ WAYNE SMITH LEAD MSA Signed: 09/02/2023 08:47 WAYNE SMITH OR HCS
--- OUTSIDE RECORDS SUMMARY | 2023-09-22 15:48 | XMS_ITS | Referral Summary ---
Author Name Unknown Organization [facility] Address [address] [place] [address] Care Team Providers Care Ocean Lifeguard Specialist Name Role Phone Unavailable Primary Care Provider Unavailabl e Source Comments Patient records contain information from all sites at [facility]. For routine questions regarding patient records, call [phone] during business hours, M-F 8:00 AM - 5:00 PM Central Time. Record requests for emergency care only can be directed to [phone] at any time.[facility] Allergies No known active allergies Medications Medication Sig Dispensed Refills Start Date End Date Status anastrozole (ARIMIDEX) 1 mg tablet Take 1 tablet by mouth daily. 10/31/2015 Active ADULT LOW DOSE ASPIRIN ORAL Take 1 tablet by mouth daily. 81 mg 10/18/2008 Active calcium carbonate-vitamin D2 600-125 mg-unit tablet Take by mouth daily. 500 mg taken infrequently 10/24/2013 Active calcium citrate/vitamin D3 (CITRACAL REGULAR ORAL) Take 1 tablet by mouth daily. 10/22/2015 Active hydroCHLOROthiazid e (HYDRODIURIL) 12.5 mg tablet Take by mouth daily. 10/22/2015 Active omeprazole (PriLOSEC) 20 mg capsule Take 1 capsule by mouth every other day. 01/30/2014 Active atorvastatin (LIPITOR) 80 mg tablet Take 1 tablet by mouth daily. 03/02/2017 Active alendronate (FOSAMAX) 35 mg tablet 12/16/2017 Active olopatadine (PATANOL) 0.1 % ophthalmic solution INSTILL 1 DROP INTO BOTH EYES TWICE A DAY 5 mL 5 10/31/2019 Active Additional Information Patient taking differently: both eyes Daily PRN, Reported on 09/22/2022 metoprolol succinate (TOPROL-XL) 25 mg 24 hr tablet Take 25 mg by mouth daily. 07/08/2020 Active omeprazole (PriLOSEC OTC) 20 mg EC tablet Take 20 mg by mouth daily as needed. Active ergocalciferol (Vitamin D2) 50,000 Unit capsule Take 50,000 Units by mouth daily. Active lisinopriL (PRINIVIL,ZESTRIL) 20 mg tablet TAKE [...] Atherosclerosis Extremity w Claudication Coronary Artery Disease [place] Vessel 11/30/2007 Hypertension Essential Primary 03/08/2003 Resolved [...] Comments Blood Pressure 151/57 08/04/2020 9:20 AM LEAD [facility]ON TENDER Pulse 60 08/04/2020 9:05 AM LEAD [facility]ON TENDER Temperature 36.5 ??C (97.7 ??F) 02/28/2019 9:34 AM CD T Respiratory Rate 16 02/15/2018 9:14 AM CDT Oxygen Saturation 98% 08/04/2020 9:05 AM LEAD [facility]ON TENDER Inhaled Oxygen Concentration - - Weight 72.7 kg (160 lb 4.4 oz) 08/04/2020 9:05 A M LEAD [facility]ON TENDER Height 160 cm (5' 2.99) 02/28/2019 9:34 AM CDT Body Mass Index 28.4 02/28/2019 9:34 AM CDT Plan of Treatment Upcoming Encounters Date Type Department Care Team (Late st Contact Info) Description 10/13/2023 2:30 PM CDT Office Visit Department of Ophthalmology in [place], [place] [address] [phone] Ole Viera Jr., M.D. [address] [phone] Medical Devices Implanted Type Area Solid Tire Tuber Machine Operator Device Identifier Shelf Expiration Date Model / Serial / Lot Protege Everflex 7 X 80 X 120 - [id number] [id number] Implanted:Qty: 1 on 06/27/2008 Vascular Stent ev3 Description:Device Manufactu rer - EV3. Device Status Text - [id number]. Procedures Procedure Name Priority Date/Time Associated Diagnosis Comments EXTI CREATININE WITH EGFR, S/P Routine 07/06/2020 1:40 AM LEAD MASON TENDER SODIUM, S/P Routine 06/13/2014 10:30 AM LEAD MASON TENDER POTASSIUM, S/P Routine 06/13/2014 10:30 AM LEAD MASON TENDER from Last 3 Months or Most Recently Relevant to Health Maintenance Results * Sodium (06/13/2014 10:30 AM LEAD MASON TENDER) Sodium, S 137 135 - 145 MMOL/L [facility] 06/13/2014 10:3 0 AM LEAD MASON TENDER 06/13/2014 10:30 AM LEAD MASON TENDER Kellen Kevin APRN, C.N.P., M.S. LAB BLOOD ADD-ON [facility] [address] * Potassium (06/13/2014 10:30 AM LEAD MASON TENDER) Potassium, S 4.1 3.6 - 5.2 MMOL/L [facility] 06/13/2014 10:3 0 AM LEAD MASON TENDER 06/13/2014 10:30 AM LEAD [facility]ON TENDER Kellen Kevin APRN, C.N.P., M.S. LAB BLOOD ADD-ON [facility] [address] from Last 3 Months or Most Recently Relevant to Health Maintenance Advance Directives For more information, please contact: [phone] Documents on File Type Date Recorded Patient Internal Control Consultant Expl anation Advance Directives 06/27/2008 12:00 AM Leg acy document. See document viewer.
--- OUTSIDE RECORDS SUMMARY | 2023-09-22 15:48 | XMS_ITS | Encounter Summary ---
Author Name Department of Vetera [facility] Organization Department of Vetera [facility] Address [address] [place] [address] Insurance Providers: All historical and current Section Date Range: From patient's date of to the date document was created. This section includes the names of all active insurance providers for the patient. Insurance Provider Type of Coverage Plan Name Start of Policy Coverage End of Policy Coverage Group Number Member ID Insurance Provider's Telephone Number Policy Talavera's Name Patient's Relationship to Policy Talavera [facility] ([id number]) PRESCRIPT ION GEHA May 30, 2005 [id number] [phone] SONIA MOBLEY PATIENT GEHA (SECONDARY ) PREFERRED PROVIDER ORGANIZAT ION (PPO) GEHA A/B PRIMA RY May 30, 2005 [id number] SONIA MOBLEY PATIENT GEHA (SECONDARY ) PREFERRED PROVIDER ORGANIZAT ION (PPO) GEHA A&B PRIMA RY May 30, 2005 [id number] SONIA MOBLEY PATIENT [facility] PREFERRED PROVIDER ORGANIZAT ION (PPO) DO NOT USE May 30, 2005 [id number] [phone] TONI BRITO PATIENT MEDICARE (WNR) MEDICARE (M) PART A Jan 29, 2000 PART A [id number] [phone] SONIA MOBLEY PATIENT MEDICARE (WNR) MEDICARE (M) PART B Jan 29, 2000 PART B [id number] [phone] SONIA MOBLEY PATIENT Selected Encounter This section includes the information on record at [place] for the Encounter. Date/Time Encounter Type Encounter Description Reason Pro vider Source Sep 14, 2023 09:17 AM Outpatient Encounter EVENT (HISTORICAL) IHE Encounter Template Text not used by AR Plan of Treatment: Future Appointments (+ 6 months) and Future Tests (+/- 45 days) The Plan of Treatment section includes future care activities for the patient from all [facility] This section includes future appointments and future orders which are active, pending or scheduled. Future Appointments This section includes appointments that were scheduled to occur 6 months from the date of the Encounter, up to a maximum of 20 appointments. The data comes from all [place] treatment facilities. Appointment Date/Time Appointment Type Appointme nt Facility Name Sep 26, 2023 09:00 AM AMBULATORY - [place]GERY [place] [facility] October 04, 2023 05:00 PM [facility] Nov 10, 2023 10:30 AM AMBULATORY - REHAB MEDICIN E [facility] Lab Results: +/- 30 days of the encounter This section includes the Chemistry and Hematology Lab Results on record with [place] for the patient. Radiology Reports and Pathology Reports are provided separately, in subsequent sections. Lab Results This section contains the Chemistry/Hematology Results that were resulted 30 days before or 30 daysafter the date of the Encounter. Date/Time Source Result Type Result - Unit Interpretation Reference Range Comment Sep 12, 2023 09:40 AM [facility] HEMOGLOBIN A1C Specimen Type: BLOOD Comment: Values [...] Mar 17, 2023 04:58 PM Reporting Lab: [facility] [id number] Performing Lab: [facility] [address] HEMOGLOBIN A1C 5.8 4.0-6.0 Sep 12, 2023 09:40 AM [facility] LIPID PANEL,NON-FASTING Specimen Type: PLASMA No comment entered. Ordering Provider: DOMINIC TREJO Report Released Date/Time: Mar 17, 2023 04:58 PM Reporting Lab: [facility] [address] Performing Lab: [facility] [address] [facility] [address] CHOLESTEROL 210 H <199 .HDL 63 >50 LDL CALCULATION 121 H <99 VLDL CALCULATION 26 <29 NON HDL CHOLESTEROL 147 H <129 TRIG(NON FASTING) 132 <149 Sep 12, 2023 09:40 AM [facility] BASIC METABOLIC PANEL+MG Specimen Type: PLASMA No comment entered. Ordering Provider: DOMINIC TREJO Report Released Date/Time: Mar 17, 2023 04:58 PM Reporting Lab: [facility] [address] [facility] [address] Performing Lab: [facility] [address] [facility] [address] CREATININE 0.6 0.5-1.0 UREA NITROGEN 7 7-20 GLUCOSE 98 70-100 SODIUM 139 136-145 POTASSIUM 3.5 3.5-5.1 CHLORIDE 104 98-107 CO2 29 22-29 CALCIUM 8.9 8.4-10.2 MAGNESIUM 1.8 1.6-2.6 ANION GAP 6 5-15 .CREAT EGFR(CKD-EPI) 86 >60 Social History: Smoking Status (Most current) and Tobacco Use (All prior to encounter date) This section includes the most current, and the historical, smoking and tobacco- related health factors from the [place] facility where the Encounter took place. Current Smoking Status This section includes the most current smoking, or tobacco-related health factor, from the [place] facility where the Encounter took place. Date/Time Current Smoking Status Comment Robyn baez Sep 12, 2023 10:30 AM AR-TOBACCO NEVER USED [facility] Tobacco Use History This section includes a history of the smoking, or tobacco-related health factors, that were collected on or before the date of the Encounter. The data comes from the [place] facility where the Encounter took place. Date/Time Smoking Status/Tobacco Use Comment Farooq acnelia October 18, 2022 10:00 AM VA-TOBACCO NEVER USED [facility] September 28, 2021 09:30 AM VA-TOBACCO NEVER USED [facility] Nov 10, 2020 08:30 AM AR-TOBACCO NEVER USED [facility]
--- OUTSIDE RECORDS SUMMARY | 2023-09-22 15:48 | XMS_ITS | Encounter Summary ---
Author Name Department of Vetera [facility] Organization Department of Vetera [facility] Address [address] [place] [address] Insurance Providers: All historical and current Section [...] Patient's Relationship to Policy [facility] ([id number]) PRESCRIPT ION GEHA May 30, 2005 [id number] SONIA MOBLEY PATIENT GEHA (SECONDARY ) PREFERRED PROVIDER ORGANIZAT ION (PPO) GEHA A/B PRIMA RY May 30, 2005 [id number] SONIA MOBLEY PATIENT GEHA (SECONDARY ) PREFERRED PROVIDER ORGANIZAT ION (PPO) GEHA A&B PRIMA RY May 30, 2005 [id number] SONIA MOBLEY PATIENT [facility] PREFERRED PROVIDER ORGANIZAT ION (PPO) DO NOT USE May 30, 2005 [id number] TONI BRITO PATIENT MEDICARE (WNR) MEDICARE (M) PART A Jan 29, 2000 PART A [id number] [phone] SONIA MOBLEY PATIENT MEDICARE (WNR) MEDICARE (M) PART B Jan 29, 2000 PART B [id number] [phone] SONIA MOBLEY PATIENT Selected Encounter This section includes the information on record at CT for the Encounter. Date/Time Encounter Type Encounter Description Reason Pro vider Source Sep 22, 2023 01:18 PM Outpatient Encounter EVENT (HISTORICAL) IHE Encounter Template Text not used by CT Plan of Treatment: Future Appointments (+ 6 months) and Future Tests (+/- 45 days) The Plan of Treatment section includes future care activities for the patient from all [facility]. This section includes future appointments [...] 09:00 AM AMBULATORY - SURGERY [place] [facility] October 04, 2023 05:00 PM AMBULATORY - NONE [facility] Nov 10, 2023 10:30 AM AMBULATORY - REHAB MEDICIN E [facility] Lab Results: +/- 30 [...] Range Comment Sep 12, 2023 09:40 AM [facility] HEMOGLOBIN A1C Specimen Type: [...] Mar 17, 2023 04:58 PM Reporting Lab: [facility] [id number] Performing Lab: [facility] [address] HEMOGLOBIN A1C 5.8 4.0-6.0 Sep 12, 2023 09:40 AM [facility] BASIC METABOLIC PANEL+MG Specimen Type: PLASMA No comment entered. Ordering Provider: DOMINIC TREJO Report Released Date/Time: Mar 17, 2023 04:58 PM Reporting Lab: [facility] [address] Performing Lab: [facility] [address] CREATININE 0.6 0.5-1.0 UREA NITROGEN 7 7-20 GLUCOSE 98 70-100 SODIUM 139 136-145 POTASSIUM 3.5 3.5-5.1 CHLORIDE 104 98-107 CO2 29 22-29 CALCIUM 8.9 8.4-10.2 MAGNESIUM 1.8 1.6-2.6 ANION GAP 6 5-15 .CREAT EGFR(CKD-EPI) 86 >60 Sep 12, 2023 09:40 AM [facility] LIPID PANEL,NON-FASTING Specimen Type: PLASMA No comment entered. Ordering Provider: DOMINIC TREJO Report Released Date/Time: Mar 17, 2023 04:58 PM Reporting Lab: [facility] [address] Performing Lab: [facility] [address] CHOLESTEROL 210 H <199 .HDL 63 >50 LDL CALCULATION 121 H <99 VLDL CALCULATION 26 <29 NON HDL CHOLESTEROL 147 H <129 TRIG(NON FASTING) 132 <149 Social History: Smoking Status (Most current) and [...] Robyn baez Sep 12, 2023 10:[address]-TOBACCO NEVER USED [facility] Tobacco Use History This section includes a history of the smoking, or tobacco-related health factors, that were collected on or before the date of the Encounter. The data comes from the [place] facility where the Encounter took place. Date/Time Smoking Status/Tobacco Use Comment Farooq acnelia October 18, 2022 10:00 AM VA-TOBACCO NEVER USED [facility] September 28, 2021 09:30 AM VA-TOBACCO NEVER USED [facility] Nov 10, 2020 08:[address]-TOBACCO NEVER USED [facility]
--- OUTSIDE RECORDS SUMMARY | 2023-09-22 15:48 | XMS_ITS | Encounter Summary ---
Author Name Department of [facility] Organization Department of [facility] Address [address] [place] [address] Insurance Providers: All historical and current Section Date Range: From patient's date of to the date document was created. This section includes the names of all active insurance providers for the patient. Insurance Provider Type of Coverage Plan Name Start of Policy Coverage End of Policy Coverage Group Number Member ID Insurance Provider's Telephone Number Policy Talavera's Name Patient's Relationship to Policy Talavera RAFAELDICKENS ([id number]) PRESCRIPT ION GEHA May 30, 2005 [id number] [phone] SONIA MOBLEY PATIENT GEHA (SECONDARY ) PREFERRED PROVIDER ORGANIZAT ION (PPO) GEHA A&B PRIMA RY May 30, 2005 [id number] SONIA MOBLEY PATIENT GEHA (SECONDARY ) PREFERRED PROVIDER ORGANIZAT ION (PPO) GEHA A/B PRIMA RY May 30, 2005 [id number] SONIA MOBLEY PATIENT [facility] PREFERRED PROVIDER ORGANIZAT ION (PPO) DO NOT USE May 30, 2005 [id number] [phone] TONI BRITO PATIENT MEDICARE (WNR) MEDICARE (M) PART A Jan 29, 2000 PART A [id number] [phone] SONIA MOBLEY PATIENT MEDICARE (WNR) MEDICARE (M) PART B Jan 29, 2000 PART B [id number] [phone] SONIA MOBLEY PATIENT Selected Encounter This section includes the information on record at [place] for the Encounter. Date/Time Encounter Type Encounter Description Reason Provider Source Sep 12, 2023 10:30 AM OFFICE O/P EST MOD 30 MIN COMP [facility] ICD-10-CM I48.91 Unspecified atrial fibrillation DOMINIC TREJO May Encounter Template Text not used by [place] Assessments - Encounter Diagnoses This section includes the primary and secondary diagnoses documented for the Encounter. 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 This section includes future appointments and future orders which are active, pending or scheduled. Future Appointments This section includes appointments that were scheduled to occur 6 months from the date of the Encounter, up to a maximum of 20 appointments. The data comes from all [place] treatment facilities. Appointment Date/Time Appointment Type Appointme nt Facility Name Sep 26, 2023 09:00 AM AMBULATORY - SURGERY [place] [facility] October 04, 2023 05:00 PM [facility] Nov 10, 2023 10:30 AM [facility] Lab Results: +/- 30 days of the encounter This section includes the Chemistry and Hematology Lab Results on record with [place] for the patient. Radiology Reports and Pathology Reports are provided separately, in subsequent sections. Lab Results This section contains the Chemistry/Hematology Results that were resulted 30 days before or 30 daysafter the date of the Encounter. Date/Time Source Result Type Result - Unit Interpretation Reference Range Comment Sep 12, 2023 09:40 AM [facility] HEMOGLOBIN A1C Specimen Type: BLOOD [...] Mar 17, 2023 04:58 PM Reporting Lab: [facility] [id number] Performing Lab: [facility] [id number] HEMOGLOBIN A1C 5.8 4.0-6.0 Sep 12, 2023 09:40 AM [facility] LIPID PANEL,NON-FASTING Specimen Type: PLASMA No comment entered. Ordering Provider: DOMINIC TREJO Report Released Date/Time: Mar 17, 2023 04:58 PM Reporting Lab: [facility] [id number] Performing Lab: [facility] [id number] CHOLESTEROL 210 H <199 .HDL 63 >50 LDL CALCULATION 121 H <99 VLDL CALCULATION 26 <29 NON HDL CHOLESTEROL 147 H <129 TRIG(NON FASTING) 132 <149 Sep 12, 2023 09:40 AM [facility] BASIC METABOLIC PANEL+MG Specimen Type: PLASMA No comment entered. Ordering Provider: DOMINIC TREJO Report Released Date/Time: Mar 17, 2023 04:58 PM Reporting Lab: [facility] [id number] Performing Lab: [facility] [id number] CREATININE 0.6 0.5-1.0 UREA NITROGEN 7 7-20 GLUCOSE 98 70-100 SODIUM 139 136-145 POTASSIUM 3.5 3.5-5.1 CHLORIDE 104 98-107 CO2 29 22-29 CALCIUM 8.9 8.4-10.2 MAGNESIUM 1.8 1.6-2.6 ANION GAP 6 5-15 .CREAT EGFR(CKD-EPI) 86 >60 Vital Signs: All taken on the encounter date This section contains inpatient and outpatient Vital Signs collected on the date of the Encounter. Date/Time Temperature Pulse Blood Pressure Respiratory Rate SP02 Pain Height Weight Body Mass Index Source Sep 12, 2023 10:54 AM 137/79 [facility] Sep 12, 2023 10:46 AM 93 151/83 16 97 0 60.5 164.9 32 [facility] Social History: Smoking Status (Most current) and Tobacco Use (All prior to encounter date) This section includes the most current, and the historical, smoking and tobacco- related health factors from the [facility] where the Encounter took place. Current Smoking Status This section includes the most current smoking, or tobacco-related health factor, from the [facility] where the Encounter took place. Date/Time Current Smoking Status Comment Robyn ity Sep 12, 2023 10:30 AM [place]-TOBACCO NEVER USED [facility] Tobacco Use History This section includes a history of the smoking, or tobacco-related health factors, that were collected on or before the date of the Encounter. The data comes from the [place] facility where the Encounter took place. Date/Time Smoking Status/Tobacco Use Comment F acility October 18, 2022 10:00 AM [place]-TOBACCO NEVER USED [facility] September 28, 2021 09:30 AM [place]-TOBACCO NEVER USED [facility] Nov 10, 2020 08:30 AM [place]-TOBACCO NEVER USED [facility] Encounter Notes: All associated encounter notes This section contains the clinical notes associated to the Encounter. Date/Time Encounter Note(s) Provider Source Sep 13, 2023 08:17 AM ADDENDUM: LOCAL TITLE: Addendum STANDARD TITLE: ADDENDUM DATE OF NOTE: SEP 13, 2023@08:17:16 ENTRY DATE: SEP 13, 2023@08:17:18 AUTHOR: WEI TREJO EXP COSIGNER: URGENCY: STATUS: COMPLETED Please let pt know I have ordered Chest CT to f/u on thoracic aortic aneurysm. /baltazar/ Dominic Ely MD STAFF PHYSICIAN Signed: 09/13/2023 08:17 Receipt Acknowledged By: 09/13/2023 08:26 /baltazar/ MICKI JAIN REGISTERED NURSE --- Original Document --- 09/12/23 [facility] CLINIC NOTE: Nurse's Notes Reviewed. Chief Complaint: 6 mo f/u S: The patient is a 88 yo FEMALE who comes in today for 6 mo f/u. Son, Aman, here for appt today. Had a cough for the past 1 1/2 wks-especially at night. Is having urinary leakage with that. tested negative for covid. Is masking around people at her living facility. Has not had a runny nose. Mostly just a cough. No shortness of breath. Hasn't taken temp. Facial twitching. Has been doing botox injections which helped. Struggled with medication management. Now set-up with home health RN. Doesn't report any further a fib episodes; ziopatch w/out a fib. however, son reports there have been times where she has felt something over the past couple years. No hx of falls Past medical history/Active Problems: Active Problems: Active [...] - 2011 4. Polymyalgia rheumatica 5. Prediabetes ([facility] [id number]) 6. 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 - pT1c, N0, M0-Stage 1A - s/p lumpectomy 06/2014, radiation therapy - On Anastrazole since 07/2014 7. History of cholecystectomy 8. History of total knee arthroplasty - R knee 9. Peripheral vascular disease - s/p stenting Femoral artery, 2008 10. Sleep Apnea ([facility] [id number]) 11. Benign essential hypertension 12. 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 Atrial fibrillation 15. Long-term current use of anticoagulant Review of Systems: 10 point ROS including constitutional, eyes, respiratory, cardiovascular, pulmonary, gastroenterology, genitourinary, integumentary, musculoskeletal, pschiatric were all negative except for pertinent positive noted in my HPI. Physical Exams: Vitals: BP: 137/79 (09/12/2023 10:54) P: 93 (09/12/2023 10:46) R: 16 (09/12/2023 10:46) T: 97.8 F [36.6 C] (08/09/2023 10:51) WT: 164.9 lb [74.80 kg] (09/12/2023 10:46) O2 Sat: 97% (09/12/2023 10:46) BMI: 31.7 BMI > 25 Assessment General: Pleasant female, no apparent distress Neck: No lymphadenopathy, no thyromegaly Respiratory: Lungs clear to auscultation bilaterally CV: Some irregular beats (initially fast, then slow rhythm)no murmurs rubs or gallops Extremities: Warm, well-perfused, no lower extremity edema Skin: Warm, dry, no rash Neuro: Alert oriented x3, no focal deficits Assessment/Plan: The patient is a 88 yo FEMALE who comes in for follow up visit today. #. A fib -Likely does have paroxsymal events -Rate contol good with metoprolol -Continue eliquis and baby ASA #. CAD, PAD -Continue ASA with eliquis given known CAD and PAD #. HLD. -LDL up -Has not refilled atorvastatin since April (likely hasn't had for a month) -Repeat in 6 mos now that having home health assist with meds #. HTN. -Okay, but also hasn't refilled lisinopril or HCTZ since April #. Thoracic aortic aneurysm -needs f/u CT RTC in 6 mos. Dominic Ely MD Staff Physician Section of Women's Health // Dominic Ely MD STAFF PHYSICIAN Signed: 09/13/2023 08:17 DOMINIC TREJO [facility] Sep 12, 2023 11:21 AM ADMINISTRATIVE NOT E: LOCAL TITLE: AFTER VISIT SUMMARY NOTE STANDARD TITLE: ADMINISTRATIVE NOTE DICT DATE: SEP 12, 2023@11:21:19 ENTRY DATE: SEP 12, 2023@11:21:19 DICTATED BY: WEI TREJO EXP COSIGNER: URGENCY: STATUS: COMPLETED The patient was provided with a copy of an after-visit summary at the conclusion of the visit. A copy of the after-visit summary provided to the patient is available in [employer]. SCANNED DOCUMENT SIGNATURE NOT REQUIRED Electronically Filed: 09/12/2023 by: Dominic Ely MD STAFF PHYSICIAN DOMINIC TREJO [facility] Sep 12, 2023 11:00 AM [facility]: LOCAL TITLE: WOMEN'S CLINIC NOTE STANDARD TITLE: [facility] OUTPATIENT E & M NOTE DATE OF NOTE: SEP 12, 2023@11:00 ENTRY DATE: SEP 12, 2023@11:00:22 AUTHOR: WEI TREJO EXP COSIGNER: URGENCY: STATUS: COMPLETED [facility] NOTE Has ADDENDA Nurse's Notes Reviewed. Chief Complaint: 6 mo f/u S: The patient is a 88 yo FEMALE who comes in today for 6 mo f/u. Son, Aman, here for appt today. Had a cough for the past 1 1/2 wks-especially at night. Is having urinary leakage with that. tested negative for covid. Is masking around people at her living facility. Has not had a runny nose. Mostly just a cough. No shortness of breath. Hasn't taken temp. Facial twitching. Has been doing botox injections which helped. Struggled with medication management. Now set-up with home health RN. Doesn't report any further a fib episodes; ziopatch w/out a fib. however, son reports there have been times where she has felt something over the past couple years. No hx of falls Past medical history/Active Problems: Active Problems: Active [...] - 2011 4. Polymyalgia rheumatica 5. Prediabetes ([facility] [id number]) 6. 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 - pT1c, N0, M0-Stage 1A - s/p lumpectomy 06/2014, radiation therapy - On Anastrazole since 07/2014 7. History of cholecystectomy 8. History of total knee arthroplasty - R knee 9. Peripheral vascular disease - s/p stenting Femoral artery, 2008 10. Sleep Apnea ([facility] [id number]) 11. Benign essential hypertension 12. 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 Atrial fibrillation 15. Long-term current use of anticoagulant Review of Systems: 10 point ROS including constitutional, eyes, respiratory, cardiovascular, pulmonary, gastroenterology, genitourinary, integumentary, musculoskeletal, pschiatric were all negative except for pertinent positive noted in my HPI. Physical Exams: Vitals: BP: 137/79 (09/12/2023 10:54) P: 93 (09/12/2023 10:46) R: 16 (09/12/2023 10:46) T: 97.8 F [36.6 C] (08/09/2023 10:51) WT: 164.9 lb [74.80 kg] (09/12/2023 10:46) O2 Sat: 97% (09/12/2023 10:46) BMI: 31.7 BMI > 25 Assessment General: Pleasant female, no apparent distress Neck: No lymphadenopathy, no thyromegaly Respiratory: Lungs clear to auscultation bilaterally CV: Some irregular beats (initially fast, then slow rhythm)no murmurs rubs or gallops Extremities: Warm, well-perfused, no lower extremity edema Skin: Warm, dry, no rash Neuro: Alert oriented x3, no focal deficits Assessment/Plan: The patient is a 88 yo FEMALE who comes in for follow up visit today. #. A fib -Likely does have paroxsymal events -Rate contol good with metoprolol -Continue eliquis and baby ASA #. CAD, PAD -Continue ASA with eliquis given known CAD and PAD #. HLD. -LDL up -Has not refilled atorvastatin since April (likely hasn't had for a month) -Repeat in 6 mos now that having home health assist with meds #. HTN. -Okay, but also hasn't refilled lisinopril or HCTZ since April #. Thoracic aortic aneurysm -needs f/u CT RTC in 6 mos. Dominic Ely MD Staff Physician [facility] /baltazar/ Dominic Ely MD STAFF PHYSICIAN Signed: 09/13/2023 08:17 09/13/2023 ADDENDUM STATUS: COMPLETED Please let pt know I have ordered Chest CT to f/u on thoracic aortic aneurysm. /baltazar/ Dominic Ely MD STAFF PHYSICIAN Signed: 09/13/2023 08:17 Receipt Acknowledged By: * AWAITING SIGNATURE * MICKI JAIN JILL M [facility] Sep 12, 2023 10:48 AM [facility] OUTPATIENT NOTE: LOCAL TITLE: [facility]S CLINIC NURSING NOTE STANDARD TITLE: [facility] NURSING OUTPATIENT NOTE DATE OF NOTE: SEP 12, 2023@10:48 ENTRY DATE: SEP 12, 2023@10:49 AUTHOR: MALCOLM VALLADARES COSIGNER: URGENCY: STATUS: COMPLETED TYPE OF VISIT: Appointment Check In Type of appointment: In-person appointment REASON FOR VISIT: 6 month f/u-- son Aman with today ALLERGIES: Patient has answered NKA VITAL SIGNS: Blood Pressure: 151/83 (09/12/2023 10:46)recheck bp 137/79 patient states she took her bp medication today, is asymptomatic and does have a bp monitor and is on radha. Pulse: 93 (09/12/2023 10:46) Respiration: 16 (09/12/2023 10:46) Temperature: 97.8 F [36.6 C] (08/09/2023 10:51) Weight: 164.9 lb [74.80 kg] (09/12/2023 10:46) Height: 60.5 in [153.7 cm] (09/12/2023 10:46) BMI: 31.7 O2 Sat: 97% (09/12/2023 10:46) Pain: 0 (09/12/2023 10:46) PAIN SCREEN: Patient is not having significant pain that they wish to discuss with their provider today. MEDICATION Over the Counter/Herbal Medications: The patient denies taking any outside medications or herbals. Tobacco Use Screening: The patient has never used tobacco. Nursing Annual Screening: Fall History Screen During the past 12 months, have you had any falls? Patient does not report any falls in the past 12 months. MEDICATIONS: Patient is on one of the following medication classes: Antihypertensives, Antidepressants, Antipsychotics, Diuretics, or Controlled substance medication used for pain. Script Talk Screen Are you able to read your prescription bottles with your glasses, magnifiers or other aids? Yes or patient not taking any prescriptions. Skin Screen Patient reports any current pressure ulcers, a history of pressure ulcers, or a wound from a durable medical equipment technician or Patient is bed-confined or a wheelchair-user or Patient requires assistance to transfer/change position No, Skin Screen is Negative Home Abuse/Violence Screen Is your home free of abuse and violence? Yes MOVE! Program Screen Body Mass Index (BMI)= 31.7 [place]: Collection DT Specimen Test Name Result Units Ref Range 09/12/2023 09:40 BLOOD !! HEMOGLOBIN A1C 5.8 % 4.0 - 6.0 !! Indicates COMMENTS AVAILABLE...Refer to Interim Lab Report. [facility] Hgb A1C: No data available [place] Hgb A1C: No data available Point of Care Hgb A1C: POC HGB A1C____ Outpatient Nutrition Screen Body Mass Index (BMI)= 31.7 [place]: Collection DT Specimen Test Name Result Units Ref Range 09/12/2023 09:40 BLOOD !! HEMOGLOBIN A1C 5.8 % 4.0 - 6.0 !! Indicates COMMENTS AVAILABLE...Refer to Interim Lab Report. [place] Hgb A1C: No data available [place] Hgb A1C: No data available Point of [...] Health Education Screen BARRIERS/SPECIAL NEEDS: Hearing limitations Visual limitations PREFERRED STYLE OF LEARNING: Reading Client Assistive Service (LETICIA) Screen Does the patient require assistance with outpatient visit? No /es/ MALCOLM VALLADARES LPN LICENSED PRACTICAL NURSE Signed: 09/12/2023 10:54 MALCOLM VALLADARES [facility]
--- OUTSIDE RECORDS SUMMARY | 2023-09-22 15:48 | XMS_ITS | Clinical Summary ---
Author Name Unknown Organization [facility] Address [address] [place] [address] Care Team Providers Care Implementation Analyst Name Role Phone Unavailable Primary Care Provider Unavailabl e Source Comments Patient records contain information from all sites at [facility]. For routine questions regarding patient records, call [phone] during business hours, M-F 8:00 AM - 5:00 PM Central Time. Record requests for emergency care only can be directed to [phone] at any time.[facility] Allergies No known active allergies Medications [...] Atherosclerosis Extremity w Claudication Coronary Artery Disease [place] Vessel 11/30/2007 Hypertension Essential Primary 03/08/2003 Resolved [...] Comments Blood Pressure 151/57 08/04/2020 9:20 AM SECTION LEADER AND MACHINE SETTER Pulse 60 08/04/2020 9:05 AM SECTION LEADER AND MACHINE SETTER Temperature 36.5 ??C (97.7 ??F) 02/28/2019 9:34 AM CD T Respiratory Rate 16 02/15/2018 9:14 AM CDT Oxygen Saturation 98% 08/04/2020 9:05 AM SECTION LEADER AND MACHINE SETTER Inhaled Oxygen Concentration - - Weight 72.7 kg (160 lb 4.4 oz) 08/04/2020 9:05 A M SECTION LEADER AND MACHINE SETTER Height 160 cm (5' 2.99) 02/28/2019 9:34 AM CDT Body Mass Index 28.4 02/28/2019 9:34 AM CDT Plan of Treatment Upcoming Encounters Date Type Department Care Team (Late st Contact Info) Description 10/13/2023 2:30 PM CDT Office Visit Department of Ophthalmology in [place], [place] [address] [address] Ole Viera Jr., M.D. [address] [address] Health Maintenance Due Date Last Done Comments Pneumococcal vaccine (65+ ye ars) (2 of 2 - PPSV23 or PCV20) 05/02/2015 03/07/2015, 07/02/2009, 07/02/2009 Potassium Level 06/13/2015 06/13/2014 Sodium Level 06/13/2015 06/13/2014 Creatinine Level (Kidney Fun ction Test) 07/06/2021 07/06/2020, 03/02/2017, 12/25/2014, Additional history exists COVID-19 Vaccine (2022-2 4 season) 2023 03/03/2023, 06/29/2022, 04/01/2022, Additional history exists Depression Screening (Annual PHQ-2) 05/30/2023 Fall Risk Screen (Annual) 05/30/2023 DTaP,Tdap,and Td Vaccines (2 - Td or Tdap) 12/11/2024 12/11/2014, 05/13/2009 Zoster Vaccines Completed 12/19/2018, 07/28, 08/02/2009 Influenza Vaccine Completed 03/08/2023, , 02/21/2022, Additional history exists Medical Devices Implanted Type Area Procedure Writer Device Identifier Shelf Expiration Date Model / Serial / Lot Protege Everflex 7 X 80 X 120 - [id number] [id number] Implanted:Qty: 1 on 06/27/2008 Vascular Stent ev3 Description:Device Manufactu rer - EV3. Device Status Text - [id number]. Procedures Procedure Name Priority Date/Time Associated Diagnosis Comments EXTI CREATININE WITH EGFR, S/P Routine 07/06/2020 1:40 AM SECTION LEADER AND MACHINE SETTER SODIUM, S/P Routine 06/13/2014 10:30 AM SECTION LEADER AND MACHINE SETTER POTASSIUM, S/P Routine 06/13/2014 10:30 AM SECTION LEADER AND MACHINE SETTER from Last 3 Months or Most Recently Relevant to Health Maintenance Results * Sodium (06/13/2014 10:30 AM SECTION LEADER AND MACHINE SETTER) Sodium, S 137 135 - 145 MMOL/L [facility] 06/13/2014 10:3 0 AM SECTION LEADER AND MACHINE SETTER 06/13/2014 10:30 AM SECTION LEADER AND MACHINE SETTER Kellen Kevin APRN, C.N.P., M.S. LAB BLOOD ADD-ON [facility] [address] [place], [place] [address] * Potassium (06/13/2014 10:30 AM SECTION LEADER AND MACHINE SETTER) Potassium, S 4.1 3.6 - 5.2 MMOL/L [facility] 06/13/2014 10:3 0 AM SECTION LEADER AND MACHINE SETTER 06/13/2014 10:30 AM SECTION LEADER AND MACHINE SETTER Jeana Che APRN.N.P., M.S. LAB BLOOD ADD-ON [facility] [address] [place] [phone], [facility] from Last 3 Months or Most Recently Relevant to Health Maintenance Advance Directives For more information, please contact: [phone] Documents on File Type Date Recorded Patient Child Care Sitter Expl anation Advance Directives 06/27/2008 12:00 AM Leg acy document. See document viewer.
--- OUTSIDE RECORDS SUMMARY | 2023-09-22 15:48 | XMS_ITS | Encounter Summary ---
Author Name [facility] Organization [facility] Address [address] [place] [address] Insurance Providers: All historical and current Section Date Range: From patient's date of to the date document was created. This section includes the names of all active insurance providers for the patient. Insurance Provider Type of Coverage Plan Name Start of Policy Coverage End of Policy Coverage Group Number Member ID Insurance Provider's Telephone Number Policy Talavera's Name Patient's Relationship to Policy Talavera [place] ([id number]) PRESCRIPT ION GEHA May 30, 2005 [id number] [phone] SONIA MOBLEY PATIENT GEHA (SECONDARY ) PREFERRED PROVIDER ORGANIZAT ION (PPO) GEHA A/B PRIMA RY May 30, 2005 [id number] SONIA MOBLEY PATIENT GEHA (SECONDARY ) PREFERRED PROVIDER ORGANIZAT ION (PPO) GEHA A&B PRIMA RY May 30, 2005 [id number] [phone] SONIA MOBLEY PATIENT [facility] PREFERRED PROVIDER ORGANIZAT ION (PPO) DO NOT USE May 30, 2005 [id number] [phone] TONI BRITO PATIENT MEDICARE (WNR) MEDICARE (M) PART A Jan 29, 2000 PART A [id number] [phone] SONIA MOBLEY PATIENT MEDICARE (WNR) MEDICARE (M) PART B Jan 29, 2000 PART B [id number] [phone] SONIA MOBLEY PATIENT Selected Encounter This section includes the information on record at NH for the Encounter. Date/Time Encounter Type Encounter Description Reason Pro vider Source Sep 19, 2023 11:16 AM Outpatient Encounter ADMIN PAT ACTIVTIES (MASNONCT) IHE Encounter Template Text not used by NH Plan of Treatment: Future Appointments (+ 6 months) and Future Tests (+/- 45 days) The Plan of Treatment section includes future care activities for the patient from all NH treatmentfacilities. This section includes future appointments and future orders which are active, pending or scheduled. Future Appointments This section includes appointments that were scheduled to occur 6 months from the date of the Encounter, up to a maximum of 20 appointments. The data comes from all NH treatment facilities. Appointment Date/Time Appointment Type Appointme nt Facility Name Sep 26, 2023 09:00 AM AMBULATORY - [place] [facility] October 04, 2023 05:00 PM [facility] Nov 10, 2023 10:30 AM AMBULATORY - REHAB MEDICIN E [facility] Lab Results: +/- 30 days of the encounter This section includes the Chemistry and Hematology Lab Results on record with NH for the patient. Radiology Reports and Pathology Reports are provided separately, in subsequent sections. Lab Results This section contains the Chemistry/Hematology Results that were resulted 30 days before or 30 daysafter the date of the Encounter. Date/Time Source Result Type Result - Unit Interpretation Reference Range Comment Sep 12, 2023 09:40 AM [facility] HEMOGLOBIN A1C Specimen Type: BLOOD Comment: [...] Mar 17, 2023 04:58 PM Reporting Lab: [facility] [id number] Performing Lab: [facility] [id number] HEMOGLOBIN A1C 5.8 4.0-6.0 Sep 12, 2023 09:40 AM [facility] LIPID PANEL,NON-FASTING Specimen Type: PLASMA No comment entered. Ordering Provider: DOMINIC TREJO Report Released Date/Time: Mar 17, 2023 04:58 PM Reporting Lab: [facility] [id number] Performing Lab: [facility] [id number] CHOLESTEROL 210 H <199 .HDL 63 >50 LDL CALCULATION 121 H <99 VLDL CALCULATION 26 <29 NON HDL CHOLESTEROL 147 H <129 TRIG(NON FASTING) 132 <149 Sep 12, 2023 09:40 AM [facility] BASIC METABOLIC PANEL+MG Specimen Type: PLASMA No comment entered. Ordering Provider: DOMINIC TREJO Report Released Date/Time: Mar 17, 2023 04:58 PM Reporting Lab: [facility] [id number] Performing Lab: [facility] [id number] CREATININE 0.6 0.5-1.0 UREA NITROGEN 7 7-20 [...] and tobacco- related health factors from the NH facility where the Encounter took place. Current Smoking Status This section includes the most current smoking, or tobacco-related health factor, from the NH facility where the Encounter took place. Date/Time Current Smoking Status Comment Robyn baez Sep 12, 2023 10:30 AM NH-TOBACCO NEVER USED [facility] Tobacco Use History This section includes a history of the smoking, or tobacco-related health factors, that were collected on or before the date of the Encounter. The data comes from the NH facility where the Encounter took place. Date/Time Smoking Status/Tobacco Use Comment Farooq acnelia October 18, 2022 10:00 AM [facility]TO[facility]AC[facility] NEVER USED [facility] September 28, 2021 09:30 AM [facility]-TOBACCO NEVER USED [facility] Nov 10, 2020 08:30 AM NH-TOBACCO NEVER USED [facility] Encounter Notes: All associated encounter notes This section contains the clinical notes associated to the Encounter. Date/Time Encounter Note(s) Provider Source Sep 19, 2023 11:16 AM REPORT OF CONTACT: LOCAL TITLE: APPOINTMENT SCHEDULING NOTE STANDARD TITLE: REPORT OF CONTACT DATE OF NOTE: SEP 19, 2023@11:16 ENTRY DATE: SEP 19, 2023@11:16:26 AUTHOR: SÁNCHEZ JIMÉNEZ EXP COSIGNER: URGENCY: STATUS: COMPLETED Attempted to schedule Recall/Patient Center Scheduling (PtCSch) Contact attempt made to [facility] 1st attempt Telephone 2nd attempt Letter - Sent letter by regular [place] mail to address on file: ALICE MOBLEY [address] [place] [address] [place] [address] 3rd attempt Text message Disposition order request after September Left message on voice mail to call back to this number [phone] If [facility] calls back, schedule appt for: CTA Gated Chest, with IV contrast, CONNIE [id number] /baltazar/ SÁNCHEZ JIMÉNEZ ADVANCED MSA Signed: 09/19/2023 11:17 Receipt Acknowledged By: 09/19/2023 15:20 /baltazar/ Dominic Sales MD STAFF PHYSICIAN SÁNCHEZ JIMÉNEZ [facility]
--- OUTSIDE RECORDS SUMMARY | 2023-09-22 15:48 | XMS_ITS | Encounter Summary ---
Author Name Unknown Organization [facility] Address [address] [place] [address] Care Team Providers Care Laborer Beam House Name Role Phone Unavailable Primary Care Provider Unavailabl e Encounter Details Date Type Department Care Team (Late Contact Info) Description 10/31/2015 Historical Ophthalmology [facility] Ole Viera Jr., M.D. [address] [place] [phone] Social History Tobacco Use Types Packs/Day Years [...] VF OU CDM Reports - EYEGEN Id: [id number] Status: Fnl documented in this encounter Plan of Treatment Upcoming Encounters Date Type Department Care Team (Late Contact Info) Description 10/13/2023 2:30 PM CDT Office Visit Department of Ophthalmology in [place], [place] [address] [place] [phone] Ole Viera Jr., M.D. [address] [place] [address] documented as of this encounter Visit Diagnoses Not on filedocumented in this encounter Additional Health Concerns Assessment Noted Time PHQ-9 Depression Total Score: 0 09/24/19 15 3:20 PM CDT documented as of this encounter
--- OUTSIDE RECORDS SUMMARY | 2023-09-22 15:48 | XMS_ITS ---
Author Name Unknown Organization [facility] Address [address] [place] [address] Care Team Providers Care Screener And Blender Name Role Phone Unavailable Unavailable Unavailable Surgery Details Not on file Complications Check Surgery Details section. Procedure Estimated Blood Loss Check Surgery Details section. Procedure Findings Check Surgery Details section. Procedure Specimens Taken Check Surgery Details section.
--- OUTSIDE RECORDS SUMMARY | 2023-09-22 15:48 | XMS_ITS | Clinical Summary ---
Author Name Unknown Organization [facility] Address [place], [place] [address] Care Team Providers Care Flying I Instructor Name Role Phone Natalia Jameson MD Primary Care Provider Allergies No known active allergies Medications Medication Sig Dispensed Refills Start Date End Date Status alendronate (FOSAMAX) 35 mg tablet Take 35 mg by mouth once a week in the morning. Take on empty stomach with full glass of water. Do not lie down for 1 hr. Active atorvastatin (LIPITOR) 80 mg tablet Take 80 mg by mouth at bedtime. Active anastrozole (ARIMIDEX) 1 mg tablet Take 1 mg by mouth once daily. Active aspirin chewable 81 mg chewable tablet Take 81 mg by mouth once daily with a meal. Active Cholecalciferol, Vitamin D3, (VITAMIN D-3) 5,000 unit tab Take 5,000 Units by mouth once daily. Active calcium citrate-vitamin D3, 315 mg-250 units, (CITRACAL WITH VITAMIN D) 315 mg- 250 unit tab tablet Take 2 tablets by mouth once daily with a meal. Active hydroCHLOROthiazide 12.5 mg tablet Take 12.5 mg by mouth once daily. Active omeprazole 20 mg tablet Take 20 mg by mouth every 72 hours. Active metoprolol succinate (TOPROL XL) 25 mg Sustained-Release tabletIndications:Hyp ertension Take 1 tablet by mouth once daily. 30 tablet 07/08/2020 Active lisinopriL (PRINIVIL; ZESTRIL) 20 mg tabletIndications:Hyp ertension Take 1 tablet by mouth once daily. 30 tablet 07/07/2020 Active amLODIPine (NORVASC) 10 mg tablet Take 0.5 Tablets by mouth once daily. 09/30/2021 Active calcium carbonate-vitamin D 250 mg-3.125 mcg (125 unit) tab Take 2 Tablets by mouth once daily. 03/16/2021 Active omeprazole (PRILOSEC-OTC) 20 mg tablet Take 20 mg by mouth once daily if needed. Active Active Problems Problem Noted Date Diagnosed Date Near syncope 07/06/2020 HTN (hypertension) 11/27/2018 CAD (coronary artery disease) 11/27/2018 GERD (gastroesophageal reflux disease) 9 Breast cancer 11/27/2018 Osteopenia 11/27/2018 YOUSIF (obstructive sleep apnea) - not on cpap 05/2018 Cholecystitis 11/27/2018 Probable Choledocholithiasis 11/27/2018 Flat foot(734) 07/13/2007 Resolved Problems Problem Noted Date Diagnosed Date Resolved Date NSTEMI (non-ST elevated myoc ardial infarction) 07/06/2020 07/06/2020 Encounters Date Type Department Care Team Description 09/21/[address] [address] Andrew Trevino AuD 09/07/2023 2:30 PM CDT Office Visit [address] [address] Andrew Trevino, [facility] 09/07/2023 Travel 09/05/[address] [address] Andrew Trevino AuD Questions (hearing aids ) 09/01/[address] [address] Andrew Trevino AuD Questions (regarding left hearing aid ) 08/03/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 Office Visit [address] [address] Andrew Trevino, [facility] 08/03/2023 Travel 08/03/[address] [address] Andrew Trevino, AuD from Last 3 Months Social History Tobacco Use Types Packs/Day Years [...] T Respiratory Rate 16 07/07/2020 3:42 PM 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 Oxygen Saturation 98% 11/05/2021 2:59 PM CDT Inhaled Oxygen Concentration - - Weight 72.3 kg (159 lb 8 oz) 11/05/2021 2:59 PM CDT Height 162.6 cm (5' 4) 07/06/2020 1:06 AM 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 Body Mass Index 27.38 07/06/2020 1:06 AM 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 Plan of Treatment Upcoming Encounters Date Type Department Care Team (Late st Contact Info) Description 10/04/2023 4:00 PM CDT Office Visit [facility] [address] [place] [address] Andrew Trevino, AuD [address] [place] [phone] Health Maintenance Due Date Last Done Comments Tdap 1946 Depression screening for age 12+ 1947 BMI (ht and wt on same day) for age 18+ 1953 Tetanus booster 1955 Zoster (shingles) series for age 50+ (1 of 2) 1985 Medicare Wellness for age 65+ 02/14/2000 Pneumococcal series for age 65+ (1 of 1 - PCV) 02/14/2000 Influenza for age 65+ 01/29/2024 DEXA/DXA scan for age 65+ Completed 11/23/2021 COVID-19 vaccine series Completed 03/03/20 23, 06/29/2022, 04/01/2022, Additional history exists Procedures Procedure Name Priority Date/Time Associated Diagnosis Comments XR DXA BONE DENSITY 2 SITES AXIAL Routine 11/23/2021 2:24 PM CDT Encounter for other specified special examinations from Last 3 Months or Most Recently Relevant to Health Maintenance Results * (ABNORMAL) XR DXA BONE DENSITY 2 SITES AXIAL (11/23/2021 2:24 PM CDT) Anatomical Region Laterality Modality Spine, HIPS, HIPL, HIPR Computed Radiography Impressions 11/26/2021 2:39 PM CDT Osteopenia with lowest T score -1.6. ??Previous DEXA scan was done at an outside facility so unable to compare. RECOMMENDATIONS: The National Osteoporosis Foundation recommends pharmacologic treatment for patients with T-scores of -2.5 or less, patients with prior history of fragility fractures, or patients with 10-year probability of greater than 3% at hips or greater than 20% of suffering major osteoporotic fractures. Recommend continued optimization of calcium and vitamin D intake through dietary means and/or supplementation and regular exercise. Repeat scan recommended in 2-3 years while on aromatase inhibitor. Narrative 11/26/2021 2:39 PM CDT For Patients: Results are automatically released to your [employer] account once available, in compliance with federal regulations. This means that you may see your results before your provider has had a chance to review them. Please allow 2-3 business days for your provider to comment on the results. XR DXA Bone Mineral Density (BMD) EXAM LOCATION: [address] [address] PATIENT NAME: Yariel Gutierres DATE OF : 1935 EXAM DATE: 11/23/2021 REQUESTING PROVIDER: Natalia Jameson MD GENDER AT : female HEIGHT: 5' 4 (07/06/2020) WEIGHT: ??159 lb 8 oz (11/05/2021) MENOPAUSAL STATUS: Postmenopausal RACE/ETHNICITY: White RISK FACTORS: Advanced Age, aromatase inhibitor CURRENT MEDICATION FOR BONE LOSS: Alendronate (Fosamax) INDICATION: Breast cancer, on aromatase inhibitor COMPARISON DATE(S): None DXA scans are compared to prior studies for a patient only when the two (or more) studies were performed on the same scanner. It is not possible to compare data generated on one scanner to data from another because there are not standards in DXA equipment. This applies even if the two scanners are made by the same client services associate. PROCEDURE: Dual-energy x-ray absorptiometry performed with routine technique. Reporting is completed in the form of a T-score. The T-score represents the standard deviation from peak bone mass based on young healthy adult. A Z-score is used for diagnosis in premenopausal women, and for men under the age of 50. FINDINGS: RESULT LUMBAR SPINE L1 - L4 BMD: 1.306 g/cm2 T-Score: + 1.1 RESULTS FEMUR Left femoral neck BMD: 0.835 g/cm2 T-Score: - 1.5 Right femoral neck BMD: 0.820 g/cm2 T-Score: - 1.6 Left hip BMD: 0.947 g/cm2 T-Score: - 0.5 Right hip BMD: 0.956 g/cm2 T-Score: - 0.4 WHO criteria: Normal: T-score at or above -1 SD Osteopenia: T-score between -1.1 and -2.4 SD Osteoporosis: T-score at or below -2.5 SD Natalia Sales MD DEXA from Last 3 Months or Most Recently Relevant to Health Maintenance Advance Directives * DNR (Latest Code Status on File) Date Activated Date Inactivated Comments 07/06/2020 1:11 AM 07/07/2020 6:59 PM Question Answer Comments Code Status Discussion: Discussed * DNR Date Activated Date Inactivated Comments 11/27/2018 3:04 PM 11/29/2018 1:14 PM Patient will r everse code status for procedures Question Answer Comments Code Status Discussion: Discussed Care Teams Flying I Instructor Relationship Specialty Start Date End [place] [address] PCP - General 11/05/21
--- OUTSIDE RECORDS SUMMARY | 2023-09-22 15:48 | XMS_ITS | Encounter Summary ---
Author Name Unknown Organization [facility] Address [address] [place] [address] Care Team Providers Care Wine Cellar Stock Clerk Name Role Phone Unavailable Primary Care Provider Unavailabl e Encounter Details Date Type Department Care Team (Late st Contact Info) Description 11/08/2016 Historical Ophthalmology [facility] Ole Viera Jr., M.D. [address] [place] [address] Social History Tobacco Use Types Packs/Day Years [...] VF OU CDM Reports - EYEGEN Id: [id number] Status: Fnl documented in this encounter Plan of Treatment Upcoming Encounters Date Type Department Care Team (Late st Contact Info) Description 10/13/2023 2:30 PM CDT Office Visit Department of Ophthalmology in [place], [place] [address] [place] [phone] Ole Viera Jr., M.D. [address] [place] [phone] documented as of this encounter Visit Diagnoses Not on filedocumented in this encounter Additional Health Concerns Assessment Noted Time PHQ-9 Depression Total Score: 0 09/24/19 15 3:20 PM CDT documented as of this encounter
[2023-09-22 15:51] LABS: PCR FLU A Negative PCR FLU A (Negative); PCR FLU B Negative PCR FLU B (Negative); PCR RSV Negative PCR RSV (Negative); SARS PCR* Negative SARS-CoV-2 (Negative)
[2023-09-22] MEDS: BENZONATATE 100 MG CAPSULE PO (16:40)
== END 2023-09-22 16:44 | disposition home or self-care (01) ==
PROVIDERS: Emergency Provider Emergency Medicine
DX: R05.9 Cough, unspecified (principal)
CPT/HCPCS: 71045; 87631; 99282; 99283; A9270

== ENCOUNTER 2024-02-17 15:08 | Outpatient (CLI) | payer MEDICARE, OTHER, SELFPAY ==
--- OUTSIDE RECORDS SUMMARY | 2024-02-24 00:22 | XMS_ITS | Encounter Summary ---
Author Name [facility] [place] [facility] [place] [facility] [place] Address [address] [place] [address] Care Team Providers Care Automatic Vulcanizing Operator Name Role Phone DOMINIC TREJO Primary [...] to Policy [facility] ([id number]) PRESCRIPT ION GEHA May 30, 2005 [id number] [phone] SONIA MOBLEY PATIENT GE[facility] (SECONDARY ) PREFERRED PROVIDER ORGANIZAT ION (PPO) GEHA A/B PRIMA RY May 30, 2005 [id number] SONIA MOBLEY PATIENT [facility] (SECONDARY ) PREFERRED PROVIDER ORGANIZAT ION (PPO) GEHA A&B PRIMA RY May 30, 2005 [id number] SONIA MOBLEY PATIENT [facility] PREFERRED PROVIDER ORGANIZAT ION (PPO) DO NOT USE May 30, 2005 [id number] TONI BRITO PATIENT MEDICARE (WNR) MEDICARE (M) PART A Jan 29, 2000 PART A [id number] [phone] SONIA MOBLEY REINADEJUAN PATIENT MEDICARE (WNR) MEDICARE (M) PART B Jan 29, 2000 PART B [id number] [phone] SONIA MOBLEY PATIENT Selected Encounter This section includes the information on record at [place] for the Encounter. Date/Time Encounter Type Encounter Description Reason Pro vider Source Jul 15, 2023 11:29 AM Outpatient Encounter [facility]ICAL [facility] Encounter Template Text not used by [place] Plan of Treatment: Future Appointments (+ 6 months) and Future Tests (+/- 45 days) The Plan of Treatment section includes future care activities for the patient from all [place] [facility]. This section includes future appointments and future orders which are active, pending or scheduled. Future Appointments This section includes appointments that were scheduled to occur 6 months from the date of the Encounter, up to a maximum of 20 appointments. The data comes from all [place] treatment facilities. Appointment Date/Time Appointment Type Appointme nt Facility Name Aug 03, 2023 07:01 AM AMBULATORY - NONE [facility] Aug 09, 2023 10:30 AM AMBULATORY - NONE [facility] Aug 09, 2023 11:00 AM [facility]ORY - [facility]AB [facility] Sep 09, 2023 08:00 AM AMBULATORY - NONE [facility] Sep 12, 2023 09:30 AM AMBULATORY - NONE [facility] Sep 12, 2023 10:30 AM AMBULATORY - MEDICINE [facility] Sep 26, 2023 09:00 AM AMBULATORY - SURGERY [facility] Nov 14, 2023 10:00 AM AM[facility]ULATORY - [facility] Nov 14, 2023 10:30 AM [facility] Nov 22, 2023 09:20 AM AMBULATORY - SURGERY [facility] Dec 19, 2023 09:00 AM AMBULATORY - REHAB [facility] Dec 22, 2023 08:30 AM AMBULATORY - PSYCHIATRY [facility] Jan 12, 2024 12:30 PM AMBULATORY - SURGERY [facility] Lab Results: +/- 30 days of the encounter This section includes the Chemistry and Hematology Lab Results on record with [place] for the patient. Radiology Reports and Pathology Reports are provided separately, in subsequent sections. Lab Results This section contains the Chemistry/Hematology Results that were resulted 30 days before or 30 daysafter the date of the Encounter. Date/Time Source Result Type Result - Unit Interpretation Reference Range Comment Aug 09, 2023 08:[address] [facility] CREATININE(INCLUDES EGFR) Specimen Type: PLASMA No comment entered. Ordering Provider: SUZIE NELSON Report Released Date/Time: Jul 29, 2023 11:58 AM Reporting Lab: [facility] [id number] Performing Lab: [facility] [phone] CREATININE 0.7 mg/dL 0.5-1.0 .CREAT EGFR(CKD-EPI ) 83 >60 Aug 09, 2023 08:[address] [facility] CBC Specimen Type: BLOOD No comment entered. Ordering Provider: SUZIE NELSON Report Released Date/Time: Jul 29, 2023 11:58 AM Reporting Lab: [facility] [id number] Performing Lab: [facility] [id number] WBC 5.92 10*3/uL 4.0-11.0 RBC 4.72 10*6/uL 4.0-5.4 HGB 13.9 g/dL 11.5-16 HCT 40.3 34.5-48 MCV 85.4 fL 80-100 MCH 29.4 pg 27-33 MCHC 34.5 g/dL 32.0-37.5 PLT 211 10*3/uL 150-400 MPV 9.2 fL 7.4-10.4 RDW 13.3 11.5-14.5 Aug 09, 2023 08:[address] [facility] AST/SGOT Specimen Type: PLASMA No comment entered. Ordering Provider: SUZIE NELSON Report Released Date/Time: Jul 29, 2023 11:58 AM Reporting Lab: [facility] [id number] Performing Lab: [facility] [id number] AST/SGOT 28 U/L <34 Aug 09, 2023 08:[address] [facility] ALT/SGPT Specimen Type: PLASMA No comment entered. Ordering Provider: SUZIE NELSON Report Released Date/Time: Jul 29, 2023 11:58 AM Reporting Lab: [facility] [id number] Performing Lab: [facility] [id number] ALT/SGPT 21 U/L <55 Social History: Smoking Status (Most current) and Tobacco Use (All prior to encounter date) This section includes the most current, and the historical, smoking and tobacco- related health factors from the [place] facility where the Encounter took place. Current Smoking Status This section includes the most current smoking, or tobacco-related health factor, from the [place] facility where the Encounter took place. Date/Time Current Smoking Status Comment Facil ity October 18, 2022 10:00 AM VA-TOBACCO NEVER USED [facility] Tobacco Use History This section includes a history of the smoking, or tobacco-related health factors, that were collected on or before the date of the Encounter. The data comes from the [place] facility where the Encounter took place. Date/Time Smoking Status/Tobacco Use Comment F acility September 28, 2021 09:30 AM VA-TOBACCO NEVER USED [facility] Nov 10, 2020 08:30 AM VA-TOBACCO NEVER USED [facility] Radiology Reports: +/- 30 days [...] the Encounter. The data comes from all [place] treatment facilities. Date/Time Radiology Report Provider Source Jun 24, 2023 09:13 AM MRI-BRAIN (P): ITZCARMENCITADEJUAN [facility] [id number] -[id number] F Exm Date: JUN 24, 2023@09:13 Req Phys: VITOR THORNE Loc: [facility] NEURO MVJHONY THORNE (Req'g Img Loc: [facility] MRI Service: Unknown (Case [id number] COMPLETE) NON [facility] MRI BRAIN (MRI Detailed) CPT:07135 Reason for Study: eval for lesion/dolichoectasia to explain L hemifacial spasm Clinical History: MRI BRAIN WITH & WITHOUT CONTRAST WITH FINE CUTS THROUGH CN VII Per Joint Commission Standards, by signing this diagnostic imaging request the ordering provider confirms they have considered patients age and recent imaging history. Did the ordering provider speak with a sap ppm consultant regarding this imaging exam? 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 History of breast cancer, giant cell arteritis. Responsible provider name and phone number to notify for critical findings if other than user placing the order and pager listed below: User placing orders pager: [phone] LAST CREATININE 0.6 (03/15/23) Allergies: Patient has answered NKA Report Status: Electronically Filed Date Reported: JUL 26, 2023 Report: This is an outside Imaging study and/or report imported for continuity of patient care. This Imaging study and/or report was not reviewed or verified by a [place] Radiologist. Impression: This is an outside Imaging study and/or report imported for continuity of patient care. This Imaging study and/or report was not reviewed or verified by a [place] Radiologist. Primary Diagnostic Code: VERIFIED BY: / *ELECTRONICALLY FILED* [facility] Encounter Notes: All associated encounter [...] Signed: 07/15/2023 11:[address] [facility]
--- OUTSIDE RECORDS SUMMARY | 2024-02-24 00:22 | XMS_ITS | Continuity of Care Document ---
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 It does not include entries that were removed or entered in error. Problem Status Onset Date Problem Type Date of Resolution Comments Source Atrial fibrillation Active Condition [place] [facility] Benign essential hypertension Active Condition [facility] CAD - Coronary artery disease Active Condition Mar 16, 2021 Entered By: DOMINIC TREJO Comment: Non-obstructive on angio 11/2007 (40% mid LAD, 40% prox LCx, 20% distal RCA, 30% PDA)Mar 16, 2021 Entered By: DOMINIC TREJO Comment: PET Myocardial Perfusion 06/2020: EF 71%; small area of mild ischemia in apical lateral wall and mild nontransmural infarction basal anterolateral wall [facility] Dementia Active Condition [facility] 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 ([facility] [id number]) Active Condition Mar 26, 2021 Entered By: DOMINIC TREJO Comment: L breast, 1.2 cm, 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; ER/IL pos, HER2 neg.Mar 26, 2021 Entered By: DOMINIC TREJO Comment: pT1c, N0, M0-Stage 1AMar 26, 2021 Entered By: DOMINIC TREJO Comment: s/p lumpectomy 06/2014, radiation therapyMar 26, 2021 Entered By: DOMINIC TREJO Comment: On Anastrazole since 07/2014 [facility] Giant cell arteritis Active Condition Mar 16, 2021 Entered By: DOMINIC TREJO Comment: 2011 [facility] 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 [place] [facility] History of cholecystectomy Active [place] [facility] History of total knee arthroplasty Active Condition Mar 26 Entered By: DOMINIC TREJO Comment: R knee [facility] Long-term current use of anticoagulant Active Condition [place] [facility] Osteopenia Active Condition Mar 26 Entered By: DOMINIC TREJO Comment: R humerus fracture 2015; T score at L femoral neck -1.3 2020 Entered By: DOMINIC TREJO Comment: Started aledronate (35mg weekly) 03/2017 [facility] Peripheral vascular disease Active Condition Nov 17, 2020 Entered By: DOMINIC TREJO Comment: s/p stenting Femoral artery, 2008 [facility] Polymyalgia rheumatica Active Condition [facility] Prediabetes ([facility] [id number]) Active Condition [facility] Sleep Apnea ([facility] [id number]) Active Condition [facility] Thoracic aortic aneurysm without rupture Active Condition [facility] Diagnosis: ICD-10-CM H90.3 Sensorineural hearing loss, bilateral Active Diagnosis [facility] Diagnosis: ICD-10-CM F02.A0 Dem in other dis classd elswhr, mild, w/o beh/psych/mood/anx [facility] Diagnosis: ICD-10-CM G51.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, left Active Diagnosis [facility] Diagnosis: ICD-10-CM L81.4 Other melanin hyperpigmentation Active Diagnosis [facility] Diagnosis: ICD-10-CM G31.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 [facility] Diagnosis: ICD-10-CM R41.81 Age-related cognitive decline Active Diagnosis [facility] Diagnosis: ICD-10-CM I48.91 Unspecified atrial fibrillation Active Diagnosis [facility] Diagnosis: ICD-10-CM I47.10 Supraventricular tachycardia, unspecified Active Diagnosis [facility] Diagnosis: ICD-10-CM Z79.01 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 coordinator (current) use of anticoagulants Active Diagnosis [facility] Diagnosis: ICD-10-CM Z13.6 Encounter for screening for cardiovascular disorders Active Diagnosis [facility] Diagnosis: ICD-10-CM D48.5 Neoplasm of uncertain behavior of skin Active Diagnosis [facility] Diagnosis: ICD-10-CM Z71.9 Counseling, unspecified Active Diagnosis [facility] Diagnosis: ICD-10-CM Z48.02 Encounter for removal of sutures Active Diagnosis [facility] Diagnosis: ICD-10-CM 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, inc shoulder Active Diagnosis [facility] Diagnosis: ICD-10-CM L98.9 Disorder of the skin and subcutaneous tissue, unspecified Active Diagnosis [facility] Diagnosis: ICD-10-CM C44.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 Active Diagnosis [facility] Diagnosis: ICD-10-CM 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 Diagnosis [facility] G[facility] Diagnosis: ICD-10-CM M25.572 Pain in left ankle and joints of left foot Active Diagnosis [facility] Diagnosis: ICD-10-CM M25.571 Pain in right ankle and joints of right foot Active Diagnosis [facility] Medications Combined list of outpatient medications [...] Aug 10, 2022 30 Aug 11, 2023 [id number] Jan 07, 2023 DOMINIC TREJO [facility] ORAL DISCONT INUED 08/11/2023 [id number] DOMINIC TREJO 2022 30 [facility] AMLODIPINE BESYLATE 5MG TAB AMLODIPI NE BESYLATE 5MG TAB Disconti nued TAKE ONE TABLET BY MOUTH EVERY DAY FOR BLOOD PRESSURE FOR BLOOD PRESSURE Jan 24, 2023 90 Jan 25, 2024 [id number] Jan 24, 2023 MERCEDEZ LEBRON [facility] ORAL DISCONT INUED 01/25/2024 [id number] ORQUIDEA LEBRON 2022 90 [facility] ANASTROZOLE 1MG TAB ANASTROZ OLE 1MG TAB Disconti nued TAKE ONE TABLET BY MOUTH EVERY DAY FOR BREAST CANCER FOR BREAST CANCER Feb 10, 2023 90 Feb 11, 2024 [id number] Feb 10, 2023 MERCEDEZ LEBRON [facility] ORAL DISCONT INUED 02/11/2024 [id number] ORQUIDEA LEBRON J 2022 90 [facility] ANASTROZOLE 1MG TAB ANASTROZ OLE 1MG TAB Disconti nued TAKE ONE TABLET BY MOUTH EVERY DAY FOR BREAST CANCER FOR BREAST CANCER Aug 10, 2022 30 Aug 11, 2023 [id number] Jan 07, 2023 DOMINIC TREJO [facility] ORAL DISCONT INUED (EDIT) 08/11/2023 [id number] DOMINIC TREJO 2022 30 [facility] APIXABAN 5MG TAB APIXABAN 5MG TAB Active TAKE ONE TABLET BY MOUTH EVERY 12 HOURS TO PREVENT STROKES TO PREVENT STROKES Jul 29, 2023 60 Jul 29, 2024 [id number] Jan 23, 2024 SUZIE NELSON [facility] ORAL ACTIVE 07/29/2024 [id number] Carlos NELSON 2023 60 [facility] APIXABAN 5MG TAB APIXABAN 5MG TAB Disconti nued TAKE ONE TABLET BY MOUTH EVERY 12 HOURS TO PREVENT STROKES TO PREVENT STROKES Jul 14, 2023 60 Aug 13, 2023 [id number] Jul 15, 2023 DOMINIC TREJO [facility] ORAL DISCONT INUED (EDIT) 08/13/2023 [id number] DOMINIC TREJO 2023 60 [facility] ASPIRIN 81MG TAB,CHEWABL E ASPIRIN 81MG TAB,CHEW ABLE Active CHEW ONE TABLET BY MOUTH EVERY DAY Mar 15, 2023 108 Mar 15, 2024 [id number] A Jun 04, 2023 DOMINIC TREJO [facility] ORAL ACTIVE 03/15/2024 [id number] DOMINIC TREJO 2022 108 [facility] ATORVASTATI N CA 80MG TAB ATORVAST ATIN CA 80MG TAB Active TAKE ONE TABLET BY MOUTH EVERY DAY FOR CHOLESTE ROL FOR CHOLESTE ROL Sep 12, 2023 90 Sep 12, 2024 [id number] A Sep 12, [address] ORAL ACTIVE 09/12/2024 [id number] DOMINIC TREJO 2023 90 [facility] ATORVASTATI N CA 80MG TAB ATORVAST ATIN CA 80MG TAB Disconti nued TAKE ONE TABLET BY MOUTH EVERY DAY FOR CHOLESTE ROL FOR CHOLESTE ROL Feb 10, 2023 90 Feb 11, 2024 [id number] May 06, 2023 VI,MERCEDEZ NEELA J [facility] ORAL DISCONT INUED 02/11/2024 [id number] VI,ORQUIDEA Gonzalez 2022 90 [facility] ATORVASTATI N CA 80MG TAB ATORVAST ATIN [place] 80MG TAB Disconti nued TAKE ONE TABLET BY MOUTH EVERY DAY FOR CHOLESTE ROL FOR CHOLESTE ROL Aug 10, 2022 30 Aug 11, 2023 [id number] Jan 07, 2023 DOMINIC TREJO [facility] ORAL DISCONT INUED (EDIT) 08/11/2023 [id number] DOMINIC TREJO 2022 30 [facility] CALCIUM 250MG/VITAM IN D 125UNT TAB CALCIUM 250MG/ TAMIN D 125UNT TAB Active TAKE 2 TABLETS BY MOUTH EVERY DAY Mar 15, 2023 200 Mar 15, 2024 [id number] A May 11, 2023 DOMINIC TREJO [facility] ORAL ACTIVE 03/15/2024 [id number] DOMINIC TREJO 2022 200 [facility] CALCIUM 250MG/VITAM IN D 125UNT TAB CALCIUM 250MG/ TAMIN D 125UNT TAB Disconti nued TAKE 2 TABLETS BY MOUTH EVERY DAY Mar 16, 2022 200 Mar 17, 2023 [id number] Feb 10, [facility] 03/17/2023 [id number] DOMINIC TREJO 2022 200 [place] [facility] CETIRIZINE HCL 10MG TAB CETIRIZI NE HCL 10MG TAB Active TAKE ONE TABLET BY MOUTH EVERY DAY NEEDED FOR COUGH FOR COUGH Sep 12, 2023 30 Sep 12, 2024 [id number] Sep 12, 2023 DOMINIC TRJEO [facility] ORAL ACTIVE 09/12/2024 [id number] DOMINIC TREJO 2023 30 [place] [facility] CHOLECALCIF GAURAV 25MCG (1,000UNIT) TAB CHOLECAL CIFEROL 25MCG (1,000UN IT) TAB Active: Susp TAKE TWO TABLETS BY MOUTH EVERY DAY Sep 12, 2023 200 Sep 12, 2024 [id number] Apr 09, 2024 DOMINIC TREJO [facility] ORAL SUSPEND ED 09/12/2024 [id number] DOMINIC TREJO 2023 200 [facility] CHOLECALCIF GAURAV 25MCG (1,000UNIT) TAB CHOLECAL CIFEROL 25MCG (1,000UN IT) TAB TAKE TWO TABLETS BY MOUTH EVERY DAY Mar 16, 2022 200 Mar 17, 2023 [id number] DOMINIC TREJO [facility] ORAL 03/17/2023 [id number] DOMINIC TREJO [address] [facility] FLUTICASONE PROPIONATE 50MCG/SPRAY SOLN,NASAL, 16GM FLUTICAS ONE PROPIONA TE 50MCG/SP RAY SOLN,ELIN AL,16GM Active SPRAY 2 SPRAYS IN EACH NOSTRIL AT BEDTIME FOR COUGH FOR COUGH Sep 12, 2023 1 Sep 12, 2024 [id number] Sep 12, 2023 DOMINIC TREJO [facility] NASAL ACTIVE 09/12/2024 [id number] DOMINIC TREJO 2023 1 [facility] HYDROCHLORO THIAZIDE 12.5MG TAB HYDROCHL OROTHIAZ JACKIE 12.5MG TAB Disconti nued TAKE ONE TABLET BY MOUTH EVERY DAY FOR BLOOD PRESSURE FOR BLOOD PRESSURE Aug 10, 2022 30 Aug 11, 2023 [id number] Jan 07, 2023 DOMINIC TREJO [facility] ORAL DISCONT INUED (EDIT) 08/11/2023 [id number] DOMINIC TREJO 2022 30 [place] [facility] HYDROCHLORO THIAZIDE 25MG TAB HYDROCHL OROTHIAZ JACKIE 25MG TAB Active TAKE ONE TABLET BY MOUTH EVERY DAY FOR BLOOD PRESSURE FOR BLOOD PRESSURE Sep 12, 2023 90 Sep 12, 2024 [id number] Nov 17, 2023 DOMINIC TREJO [facility] ORAL ACTIVE 09/12/2024 [id number] DOMINIC TREJO 2023 90 [place] [facility] HYDROCHLORO THIAZIDE 25MG TAB HYDROCHL OROTHIAZ JACKIE 25MG TAB Disconti nued TAKE ONE TABLET BY MOUTH EVERY DAY FOR BLOOD PRESSURE FOR BLOOD PRESSURE Feb 10, 2023 90 Feb 11, 2024 [id number] May 03, 2023 [facility]BR[facility] ORAL DISCONT INUED 02/11/2024 [id number] VIORQUIDEA Hubbard 2022 90 [place] [facility] LISINOPRIL 40MG TAB LISINOPR [place] 40MG TAB Active TAKE ONE TABLET BY MOUTH EVERY DAY FOR BLOOD PRESSURE FOR BLOOD PRESSURE Sep 12, 2023 90 Sep 12, 2024 [id number] A Dec 01, [address] [facility] ORAL ACTIVE 09/12/2024 [id number] DOMINIC TREJO 2023 90 [place] [facility] LISINOPRIL 40MG TAB LISINOPR [place] 40MG TAB Disconti nued TAKE ONE TABLET BY MOUTH EVERY DAY FOR BLOOD PRESSURE FOR BLOOD PRESSURE Feb 10, 2023 90 Feb 11, 2024 [id number] May 04, 2023 [facility]CONT INU[facility] 02/11/2024 [id number] VI,ORQUIDEA Gonzalez 2022 90 [place] [facility] [facility] LISINOPRIL 40MG TAB LISINOPR [place] 40MG TAB Disconti nued TAKE ONE TABLET BY MOUTH EVERY DAY FOR BLOOD PRESSURE FOR BLOOD PRESSURE Aug 10, 2022 30 Aug 11, 2023 [id number] Jan 07, 2023 [facility]CONT [facility] (EDIT) 08/11/2023 [id number] DOMINIC TREJO 2022 30 [place] [facility] METOPROLOL SUCCINATE 25MG TAB,SA METOPROL OL SUCCINAT E 25MG TAB,SA Disconti nued TAKE ONE TABLET BY MOUTH TWICE A DAY FOR BLOOD PRESSURE THESE ARE NEW INSTRUCT IONS FOR BLOOD PRESSURE Jul 14, 2023 180 Jul 14, 2024 [id number] Nov 18, 2023 [facility] DISCONT [facility] (EDIT) 07/14/2024 [id number] DOMINIC TREJO 2023 180 [place] [facility] METOPROLOL SUCCINATE 50MG TAB,SA METOPROL OL SUCCINAT E 50MG TAB,SA Active TAKE ONE TABLET BY MOUTH TWICE A DAY FOR BLOOD PRESSURE THESE ARE NEW INSTRUCT IONS FOR BLOOD PRESSURE Dec 19, 2023 180 Dec 19, 2024 [id number] Dec 21, 2023 [facility] TREJO [facility] ORAL ACTIVE 12/19/2024 [id number] DOMINIC TREJO 2023 180 [place] [facility] METOPROLOL SUCCINATE 50MG TAB,SA METOPROL OL SUCCINAT E 50MG TAB,SA Disconti nued TAKE ONE TABLET BY MOUTH AT BEDTIME FOR BLOOD PRESSURE FOR BLOOD PRESSURE Feb 10, 2023 90 Feb 11, 2024 [id number] May 03, 2023 VI,MERCEDEZ Gonzalez [place] [facility] ORAL DISCONT INUED (EDIT) 02/11/2024 [id number] ORQUIDEA LEBRON 2022 90 [place] [facility] METOPROLOL SUCCINATE 50MG TAB,SA METOPROL OL SUCCINAT E 50MG TAB,SA Disconti nued TAKE ONE TABLET BY MOUTH AT BEDTIME FOR BLOOD PRESSURE FOR BLOOD PRESSURE Aug 10, 2022 30 Aug 11, 2023 [id number] Jan 07, 2023 DOMINIC TREJO [facility] ORAL DISCONT INUED (EDIT) 08/11/2023 [id number] DOMINIC TREJO 2022 30 [facility] OLOPATADINE HCL 0.1% SOLN,OPH OLOPATAD INE HCL 0.1% SOLN,OPH Active INSTILL 1 DROP IN BOTH EYES TWICE A DAY Mar 15, 2023 15 Mar 15, 2024 [id number] May 12, 2023 DOMINIC TREJO [facility] OPHTHA LMIC ACTIVE 03/15/2024 [id number] DOMINIC TREJO 2022 15 [facility] OMEPRAZOLE 20MG CAP,EC OMEPRAZO LE 20MG CAP,EC Active TAKE ONE CAPSULE BY MOUTH TWICE A WEEK ON AN EMPTY STOMACH, AT LEAST 30 MINUTES PRIOR TO A MEAL Dec 30, 2023 24 Dec 30, 2024 [id number] B Feb 14, 2024 DOMINIC TREJO [facility] ORAL ACTIVE 12/30/2024 [id number] DOMINIC TREJO 2023 24 [facility] OMEPRAZOLE 20MG CAP,EC OMEPRAZO LE 20MG CAP,EC Disconti nued TAKE ONE CAPSULE BY MOUTH TWICE A WEEK ON AN EMPTY STOMACH, AT LEAST 30 MINUTES PRIOR TO A MEAL Mar 15, 2023 24 Mar 15, 2024 [id number] A Dec 08, 2023 DOMINIC TREJO [facility] ORAL DISCONT INUED 03/15/2024 [id number] DOMINIC TREJO 2022 24 [facility] SPIRONOLACT ONE 25MG TAB SPIRONOL ACTONE 25MG TAB Active TAKE ONE TABLET BY MOUTH EVERY DAY FOR BLOOD PRESSURE FOR BLOOD PRESSURE Nov 15, 2023 90 Nov 15, 2024 [id number] Feb 10, 2024 DOMINIC TREJO [facility] ORAL ACTIVE 11/15/2024 [id number] DOMINIC TREJO 2023 90 [facility] Immunizations Combined list of available immunizations from the Department of Defense and Veterans Affairs facilities. 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 COVID-19 (MODERNA), MRNA, LNP-S, PF, 50 MCG/0.5 ML (AGES 12+ YEARS) [address] [facility] COVID-19 (PFIZER), MRNA, LNP-S, BIVALENT BOOSTER, PF, 30 MCG/0.3 ML DOSE 1 2022 [place]AMI [place] RIGHT DELTO ID [id number] [facility] COVID-19 (MODERNA), MRNA, LNP-S, BIVALENT, PF, 50 MCG/0.5 ML OR 25MCG/0.25 ML DOSE [address] [facility] INFLUENZA, UNSPECIFIED FORMULATION [address] [facility] INFLUENZA, HIGH-DOSE, QUADRIVALENT [address] [facility] COVID-19 (MODERNA), MRNA, LNP-S, PF, 100 MCG/0.5ML DOSE OR 50 MCG/0.25ML DOSE [address] [facility] COVID-19 (MODERNA), MRNA, LNP-S, PF, 100 MCG/0.5ML DOSE OR 50 MCG/0.25ML DOSE [address] [facility] INFLUENZA, HIGH-DOSE, QUADRIVALENT [address] [facility] INFLUENZA, UNSPECIFIED FORMULATION [address] [facility] COVID-19 (MODERNA), MRNA, LNP-S, PF, 100 MCG/0.5 ML DOSE [address] [facility] COVID-19 (MODERNA), MRNA, LNP-S, PF, 100 MCG/0.5 ML DOSE [address] [facility] INFLUENZA, INJECTABLE, QUADRIVALENT, PRESERVATIVE FREE 2019 150 complet ed [facility] INFLUENZA, UNSPECIFIED FORMULATION 2019 88 complet ed [facility] INFLUENZA, HIGH DOSE SEASONAL 2018 135 complet ed [facility] ZOSTER RECOMBINANT 2 [address] [facility] ZOSTER RECOMBINANT 1 [address] [facility] INFLUENZA, HIGH DOSE SEASONAL 2017 135 complet ed [facility] INFLUENZA, HIGH DOSE SEASONAL 2016 135 complet ed [facility] INFLUENZA, HIGH DOSE SEASONAL 2015 135 complet ed [facility] PNEUMOCOCCAL CONJUGATE PCV 13 [address] [facility] INFLUENZA, UNSPECIFIED FORMULATION 2014 88 complet ed [facility] TDAP [address] [facility] INFLUENZA, SEASONAL, INJECTABLE 2010 141 complet ed [facility] INFLUENZA, SEASONAL, INJECTABLE, PRESERVATIVE FREE 2009 140 complet ed [facility] ZOSTER LIVE 2009 121 complet ed [facility] PNEUMOCOCCAL POLYSACCHARID E PPV23 2009 33 complet ed [facility] PNEUMOCOCCAL, UNSPECIFIED FORMULATION 2009 109 complet ed [facility] NOVEL INFLUENZA-H1N 1-09, ALL FORMULATIONS 2008 128 complet ed [facility] TD (ADULT), 2 LF TETANUS TOXOID, PRESERVATIVE FREE, ADSORBED 2008 09 complet ed [facility] INFLUENZA, UNSPECIFIED FORMULATION 2008 88 complet ed [facility] INFLUENZA, SEASONAL, INJECTABLE 2007 141 complet ed [facility] INFLUENZA, SEASONAL, INJECTABLE 2001 141 complet ed [facility] INFLUENZA, SEASONAL, INJECTABLE 2000 141 complet ed [facility] Results Combined list of recent chemistry, [...] Mar 17, 2023 04:58 PM Reporting Lab: [facility] [phone] Performing Lab: [facility] [phone] [place] [facility] LIPID PANEL,NON -FASTING CHOLESTEROL [MASS/VOLUM E] IN SERUM OR PLASMA 210 mg/dL <199 - 199 09/11 H Specimen Type: PLASMA No comment entered. Ordering Provider: HARRIS TREJO Report Released Date/Time: Mar 17, 2023 04:58 PM Reporting Lab: [facility] [address] Performing Lab: [facility] [address] [place] [facility] LIPID PANEL,NON -FASTING CHOLESTEROL IN HDL [MASS/VOLUM E] IN SERUM OR PLASMA 63 mg/dL 50 09/11 Specimen Type: PLASMA No comment entered. Ordering Provider: HARRIS TREJO Report Released Date/Time: Mar 17, 2023 04:58 PM Reporting Lab: [facility] [address] Performing Lab: [facility] [address] [place] [facility] LIPID PANEL,NON -FASTING CHOLESTEROL IN LDL [MASS/VOLUM E] IN SERUM OR PLASMA BY CALCULATION 121 mg/dL <99 - 99 09/11 H Specimen Type: PLASMA No comment entered. Ordering Provider: HARRIS TREJO Report Released Date/Time: Mar 17, 2023 04:58 PM Reporting Lab: [facility] [address] Performing Lab: [facility] [phone] [place] [facility] LIPID PANEL,NON -FASTING CHOLESTEROL IN VLDL [MASS/VOLUM E] IN SERUM OR PLASMA BY CALCULATION 26 mg/dL <29 - 29 09/11 Specimen Type: PLASMA No comment entered. Ordering Provider: HARRIS TREJO Report Released Date/Time: Mar 17, 2023 04:58 PM Reporting Lab: [facility] [address] Performing Lab: [facility] [address] [place] [facility] LIPID PANEL,NON -FASTING CHOLESTEROL NON HDL [MASS/VOLUM E] IN SERUM OR PLASMA 147 mg/dL <129 - 129 09/11 H Specimen Type: PLASMA No comment entered. Ordering Provider: HARRIS TREJO Report Released Date/Time: Mar 17, 2023 04:58 PM Reporting Lab: [facility] [phone] Performing Lab: [facility] [phone] [place] [facility] LIPID PANEL,NON -FASTING TRIGLYCERID E [MASS/VOLUM E] IN SERUM OR PLASMA 132 mg/dL <149 - 149 09/11 Specimen Type: PLASMA No comment entered. Ordering Provider: HARRIS TREJO Report Released Date/Time: Mar 17, 2023 04:58 PM Reporting Lab: [facility] [address] Performing Lab: [facility] [address] [place] [facility] BASIC METABOLIC PANEL+MG CREATININE [MASS/VOLUM E] IN SERUM OR PLASMA 0.6 mg/dL 0.5 - 1.0 09/11 Specimen Type: PLASMA No comment entered. Ordering Provider: HARRIS TREJO Report Released Date/Time: Mar 17, 2023 04:58 PM Reporting Lab: [facility] [phone] Performing Lab: [facility] [address] [place] [facility] BASIC METABOLIC PANEL+MG UREA NITROGEN [MASS/VOLUM E] IN SERUM OR PLASMA 7 mg/dL 7 - 20 09/11 Specimen Type: PLASMA No comment entered. Ordering Provider: HARRIS TREJO Report Released Date/Time: Mar 17, 2023 04:58 PM Reporting Lab: [facility] [address] Performing Lab: [facility] [phone] [place] [facility] BASIC METABOLIC PANEL+MG GLUCOSE [MASS/VOLUM E] IN SERUM OR PLASMA 98 mg/dL 70 - 100 09/11 Specimen Type: PLASMA No comment entered. Ordering Provider: HARRIS TREJO Report Released Date/Time: Mar 17, 2023 04:58 PM Reporting Lab: [facility] [address] Performing Lab: [facility] [address] [place] [facility] BASIC METABOLIC PANEL+MG SODIUM [MOLES/VOLU ME] IN SERUM OR PLASMA 139 mmol/L 136 - 145 09/11 Specimen Type: PLASMA No comment entered. Ordering Provider: HARRIS TREJO Report Released Date/Time: Mar 17, 2023 04:58 PM Reporting Lab: [facility] [address] Performing Lab: [facility] [address] [place] [facility] BASIC METABOLIC PANEL+MG POTASSIUM [MOLES/VOLU ME] IN SERUM OR PLASMA 3.5 mmol/L 3.5 - 5.1 09/11 Specimen Type: PLASMA No comment entered. Ordering Provider: HARRIS TREJO Report Released Date/Time: Mar 17, 2023 04:58 PM Reporting Lab: [facility] [address] Performing Lab: [facility] [address] [place] [facility] BASIC METABOLIC PANEL+MG CHLORIDE [MOLES/VOLU ME] IN SERUM OR PLASMA 104 mmol/L 98 - 107 09/11 Specimen Type: PLASMA No comment entered. Ordering Provider: HARRIS TREJO Report Released Date/Time: Mar 17, 2023 04:58 PM Reporting Lab: [facility] [address] Performing Lab: [facility] [phone] [place] [facility] BASIC METABOLIC PANEL+MG CARBON DIOXIDE, TOTAL [MOLES/VOLU ME] IN SERUM OR PLASMA 29 mmol/L 22 - 29 09/11 Specimen Type: PLASMA No comment entered. Ordering Provider: HARRIS TREJO Report Released Date/Time: Mar 17, 2023 04:58 PM Reporting Lab: [facility] [id number] Performing Lab: [facility] [address] [place] [facility] BASIC METABOLIC PANEL+MG CALCIUM [MASS/VOLUM E] IN SERUM OR PLASMA 8.9 mg/dL 8.4 - 10.2 09/11 Specimen Type: PLASMA No comment entered. Ordering Provider: HARRIS TREJO Report Released Date/Time: Mar 17, 2023 04:58 PM Reporting Lab: [facility] [id number] Performing Lab: [facility] [phone] [place] [facility] BASIC METABOLIC PANEL+MG MAGNESIUM [MASS/VOLUM E] IN SERUM OR PLASMA 1.8 mg/dL 1.6 - 2.6 09/11 Specimen Type: PLASMA No comment entered. Ordering Provider: HARRIS TREJO Report Released Date/Time: Mar 17, 2023 04:58 PM Reporting Lab: [facility] [id number] Performing Lab: [facility] [address] [place] [facility] BASIC METABOLIC PANEL+MG ANION GAP IN SERUM OR PLASMA 6 mmol/L 5 - 15 09/11 Specimen Type: PLASMA No comment entered. Ordering Provider: HARRIS TREJO Report Released Date/Time: Mar 17, 2023 04:58 PM Reporting Lab: [facility] [id number] Performing Lab: [facility] [id number] [place] [facility] HOSPITAL BASIC METABOLIC PANEL+MG GLOMERULAR FILTRATION RATE/1.73 SQ M.PREDICTED [VOLUME RATE/AREA] IN SERUM, PLASMA OR BLOOD BY CREATININE- BASED FORMULA (CKD-EPI 2020) 86 60 09/11 Specimen Type: PLASMA No comment entered. Ordering Provider: HARRIS TREJO Report Released Date/Time: Mar 17, 2023 04:58 PM Reporting Lab: [facility] [address] Performing Lab: [facility] [address] [place] [facility] CREATININ E(INCLUDE S EGFR) CREATININE [MASS/VOLUM E] IN SERUM OR PLASMA 0.7 mg/dL 0.5 - 1.0 08/08 Specimen Type: PLASMA No comment entered. Ordering Provider: CHANG NELSON IE A Report Released Date/Time: Jul 29, 2023 11:58 AM Reporting Lab: [facility] [address] Performing Lab: [facility] [address] [place] [facility] CREATININ E(INCLUDE S EGFR) GLOMERULAR FILTRATION RATE/1.73 SQ M.PREDICTED [VOLUME RATE/AREA] IN SERUM, PLASMA OR BLOOD BY CREATININE- BASED FORMULA (CKD-EPI 2020) 83 60 08/08 Specimen Type: PLASMA No comment entered. Ordering Provider: CHANG NELSON IE A Report Released Date/Time: Jul 29, 2023 11:58 AM Reporting Lab: [facility] [address] Performing Lab: [facility] [address] [place] [facility] AST/SGOT ASPARTATE AMINOTRANSF ERASE [ENZYMATIC ACTIVITY/VO LUME] IN SERUM OR PLASMA 28 U/L <34 - 34 08/08 Specimen Type: PLASMA No comment entered. Ordering Provider: CHANG NELSON IE A Report Released Date/Time: Jul 29, 2023 11:58 AM Reporting Lab: [facility] [address] Performing Lab: [facility] [address] [place] [facility] ALT/SGPT ALANINE AMINOTRANSF ERASE [ENZYMATIC ACTIVITY/VO LUME] IN SERUM OR PLASMA 21 U/L <55 - 55 08/08 Specimen Type: PLASMA No comment entered. Ordering Provider: CHANG NELSON IE A Report Released Date/Time: Jul 29, 2023 11:58 AM Reporting Lab: [facility] [address] Performing Lab: [facility] [address] [place] [facility] CBC LEUKOCYTES [#/VOLUME] IN BLOOD BY AUTOMATED COUNT 5.92 10*3/u L 4.0 - 11.0 08/08 Specimen Type: BLOOD No comment entered. Ordering Provider: CHANG NELSON IE A Report Released Date/Time: Jul 29, 2023 11:58 AM Reporting Lab: [facility] [address] Performing Lab: [facility] [address] [place] [facility] CBC ERYTHROCYTE S [#/VOLUME] IN BLOOD BY AUTOMATED COUNT 4.72 10*6/u L 4.0 - 5.4 08/08 Specimen Type: BLOOD No comment entered. Ordering Provider: CHANG NELSON IE A Report Released Date/Time: Jul 29, 2023 11:58 AM Reporting Lab: [facility] [address] Performing Lab: [facility] [address] [place] [facility] CBC HEMOGLOBIN [MASS/VOLUM E] IN BLOOD 13.9 g/dL 11.5 - 16 08/08 Specimen Type: BLOOD No comment entered. Ordering Provider: CHANG NELSON IE A Report Released Date/Time: Jul 29, 2023 11:58 AM Reporting Lab: [facility] [address] Performing Lab: [facility] [address] [place] [facility] CBC HEMATOCRIT [VOLUME FRACTION] OF BLOOD BY AUTOMATED COUNT 40.3 34.5 - 48 08/08 Specimen Type: BLOOD No comment entered. Ordering Provider: CHANG NELSON IE A Report Released Date/Time: Jul 29, 2023 11:58 AM Reporting Lab: [facility] [address] Performing Lab: [facility] [address] [place] [facility] CBC MCV [ENTITIC VOLUME] BY AUTOMATED COUNT 85.4 fL 80 - 100 08/08 Specimen Type: BLOOD No comment entered. Ordering Provider: CHANG NELSON IE A Report Released Date/Time: Jul 29, 2023 11:58 AM Reporting Lab: [facility] [address] Performing Lab: [facility] [address] [place] [facility] CBC MCH [ENTITIC MASS] BY AUTOMATED COUNT 29.4 pg 27 - 33 08/08 Specimen Type: BLOOD No comment entered. Ordering Provider: CHANG NELSON IE A Report Released Date/Time: Jul 29, 2023 11:58 AM Reporting Lab: [facility] [address] Performing Lab: [facility] [address] [place] [facility] CBC MCHC [MASS/VOLUM E] BY AUTOMATED COUNT 34.5 g/dL 32.0 - 37.5 08/08 Specimen Type: BLOOD No comment entered. Ordering Provider: CHANG NELSON IE A Report Released Date/Time: Jul 29, 2023 11:58 AM Reporting Lab: [facility] [address] Performing Lab: [facility] [address] [place] [facility] CBC PLATELETS [#/VOLUME] IN BLOOD BY AUTOMATED COUNT 211 10*3/u L 150 - 400 08/08 Specimen Type: BLOOD No comment entered. Ordering Provider: CHANG NELSON IE A Report Released Date/Time: Jul 29, 2023 11:58 AM Reporting Lab: [facility] [address] Performing Lab: [facility] [address] [place] [facility] CBC PLATELET MEAN VOLUME [ENTITIC VOLUME] IN BLOOD BY AUTOMATED COUNT 9.2 fL 7.4 - 10.4 08/08 Specimen Type: BLOOD No comment entered. Ordering Provider: CHANG NELSON IE A Report Released Date/Time: Jul 29, 2023 11:58 AM Reporting Lab: [facility] [address] Performing Lab: [facility] [address] [place] [facility] CBC ERYTHROCYTE DISTRIBUTIO N WIDTH [RATIO] BY AUTOMATED COUNT 13.3 11.5 - 14.5 08/08 Specimen Type: BLOOD No comment entered. Ordering Provider: CHANG NELSON IE A Report Released Date/Time: Jul 29, 2023 11:58 AM Reporting Lab: [facility] [address] Performing Lab: [facility] [address] [place] [facility] BASIC METABOLIC PANEL+MG CREATININE [MASS/VOLUM E] IN SERUM OR PLASMA 0.6 mg/dL 0.5 - 1.0 03/15 Specimen Type: PLASMA No comment entered. Ordering Provider: MARIMAR LEBRON Report Released Date/Time: Feb 10, 2023 09:08 AM Reporting Lab: [facility] [address] Performing Lab: [facility] [address] [place] [facility] BASIC METABOLIC PANEL+MG UREA NITROGEN [MASS/VOLUM E] IN SERUM OR PLASMA 9 mg/dL 7 - 20 03/15 Specimen Type: PLASMA No comment entered. Ordering Provider: MARIMAR LEBRON Report Released Date/Time: Feb 10, 2023 09:08 AM Reporting Lab: [facility] [address] Performing Lab: [facility] [address] [place] [facility] BASIC METABOLIC PANEL+MG GLUCOSE [MASS/VOLUM E] IN SERUM OR PLASMA 106 mg/dL 70 - 100 03/15 H Specimen Type: PLASMA No comment entered. Ordering Provider: MARIMAR LEBRON Report Released Date/Time: Feb 10, 2023 09:08 AM Reporting Lab: [facility] [address] Performing Lab: [facility] [address] [place] [facility] BASIC METABOLIC PANEL+MG SODIUM [MOLES/VOLU ME] IN SERUM OR PLASMA 138 mmol/L 136 - 145 03/15 Specimen Type: PLASMA No comment entered. Ordering Provider: MARIMAR LEBRON Report Released Date/Time: Feb 10, 2023 09:08 AM Reporting Lab: [facility] [address] Performing Lab: [facility] [address] [place] [facility] BASIC METABOLIC PANEL+MG POTASSIUM [MOLES/VOLU ME] IN SERUM OR PLASMA 3.4 mmol/L 3.5 - 5.1 03/15 L Specimen Type: PLASMA No comment entered. Ordering Provider: MARIMAR LEBRON Report Released Date/Time: Feb 10, 2023 09:08 AM Reporting Lab: [facility] [address] Performing Lab: [facility] [address] [place] [facility] BASIC METABOLIC PANEL+MG CHLORIDE [MOLES/VOLU ME] IN SERUM OR PLASMA 103 mmol/L 98 - 107 03/15 Specimen Type: PLASMA No comment entered. Ordering Provider: MARIMAR LEBRON Report Released Date/Time: Feb 10, 2023 09:08 AM Reporting Lab: [facility] [address] Performing Lab: [facility] [address] [place] [facility] BASIC METABOLIC PANEL+MG CARBON DIOXIDE, TOTAL [MOLES/VOLU ME] IN SERUM OR PLASMA 28 mmol/L 22 - 29 03/15 Specimen Type: PLASMA No comment entered. Ordering Provider: MARIMAR LEBRON Report Released Date/Time: Feb 10, 2023 09:08 AM Reporting Lab: [facility] [address] Performing Lab: [facility] [address] [place] [facility] BASIC METABOLIC PANEL+MG CALCIUM [MASS/VOLUM E] IN SERUM OR PLASMA 9.3 mg/dL 8.4 - 10.2 03/15 Specimen Type: PLASMA No comment entered. Ordering Provider: MARIMAR LEBRON Report Released Date/Time: Feb 10, 2023 09:08 AM Reporting Lab: [facility] [address] Performing Lab: [facility] [address] [place] [facility] BASIC METABOLIC PANEL+MG MAGNESIUM [MASS/VOLUM E] IN SERUM OR PLASMA 1.8 mg/dL 1.6 - 2.6 03/15 Specimen Type: PLASMA No comment entered. Ordering Provider: MARIMAR LEBRON Report Released Date/Time: Feb 10, 2023 09:08 AM Reporting Lab: [facility] [address] Performing Lab: [facility] [address] [place] [facility] BASIC METABOLIC PANEL+MG ANION GAP IN SERUM OR PLASMA 7 mmol/L 5 - 15 03/15 Specimen Type: PLASMA No comment entered. Ordering Provider: MARIMAR LEBRON Report Released Date/Time: Feb 10, 2023 09:08 AM Reporting Lab: [facility] [address] Performing Lab: [facility] [address] [place] [facility] BASIC METABOLIC PANEL+MG GLOMERULAR FILTRATION RATE/1.73 SQ M.PREDICTED [VOLUME RATE/AREA] IN SERUM, PLASMA OR BLOOD BY CREATININE- BASED FORMULA (CKD-EPI 2020) 86 60 03/15 Specimen Type: PLASMA No comment entered. Ordering Provider: MARIMAR LEBRON Report Released Date/Time: Feb 10, 2023 09:08 AM Reporting Lab: [facility] [address] Performing Lab: [facility] [address] [facility] TSH W/REFLEX TO FREE T4 THYROTROPIN [UNITS/VOLU ME] IN SERUM OR PLASMA 0.61 u[IU]/ mL 0.35 - 4.94 03/15 Specimen Type: PLASMA No comment entered. Ordering Provider: HARRIS TREJO Report Released Date/Time: Mar 16, 2022 11:04 AM Reporting Lab: [facility] [address] Performing Lab: [facility] [address] [facility] VIT D 25-OH,TOT AL 25-HYDROXYV ITAMIN D3 [MASS/VOLUM E] IN SERUM OR PLASMA 30 ng/mL 12 - 50 03/15 Specimen Type: SERUM No comment entered. Ordering Provider: HARRIS TREJO Report Released Date/Time: Mar 16, 2022 11:04 AM Reporting Lab: [facility] [address] Performing Lab: [facility] [address] [facility] Vital Signs Combined list of inpatient and outpatient Vital Signs from Department of Defense and Veterans Affairs, ranging from 12 months to all on record, depending upon the facility. Vital Sign Value Date Comments Source SYSTOLIC BLOOD PRESSURE 154 12/19/2023 09:00:55 [facility] DIASTOLIC BLOOD PRESSURE 82 12/19/2023 09:00:55 [facility] PULSE OXIMETRY 97 12/19/2023 09:00:55 [facility] PAIN 0 12/19/2023 09:00:55 [facility] TEMPERATURE 98.1 12/19/2023 09:00:55 [facility] P[facility]SE 66 12/19/2023 09:00:55 [facility] RESPIRATION 18 12/19/2023 09:00:55 [facility] SYSTOLIC BLO[facility] PRESSURE 178 11/14/2023 09:43:24 [facility] DIASTOLIC BLOOD PRESSURE 75 11/14/2023 09:43:24 [facility] PULSE OXIMETRY 98 11/14/2023 09:43:24 [facility] WEIGHT 157.8 11/14/2023 09:43:24 [facility] BMI 30kg/m2 11/14/2023 09:43:24 [facility] PAIN 0 11/14/2023 09:43:24 [facility] HEIGHT 61 11/14/2023 09:43:24 [facility] PULSE 67 11/14/2023 09:43:24 [facility] RESPIRATION 16 11/14/2023 09:43:24 [facility] SYSTOLIC BLOOD PRESSURE 151 09/12/2023 10:46:47 [facility] DIASTOLIC BLOOD PRESSURE 83 09/12/2023 10:46:47 [facility] PULSE OXIMETRY 97 09/12/2023 10:46:47 M [...] HCS SYSTOLIC BLOOD PRESSURE 136 08/09/2023 10:51:35 [facility] DIASTOLIC BLOOD PRESSURE 78 08/09/2023 10:51:35 [facility] PULSE OXIMETRY 97 08/09/2023 10:51:35 [facility] PAIN 0 08/09/2023 10:51:35 [facility] TEMPERATURE 97.8 08/09/2023 10:51:35 [facility] PULSE 68 08/09/2023 10:51:35 [facility] RESPIRATION 16 08/09/2023 10:51:35 [facility] SYSTOLIC BLOOD PRESSURE 135 07/14/2023 13:14:16 [facility] DIASTOLIC BLOOD PRESSURE 79 07/14/2023 13:14:16 [facility] PULSE OXIMETRY 96 07/14/2023 13:14:16 [facility] WEIGHT 163.5 07/14/2023 13:14:16 [facility] 31kg/m2 07/14/2023 13:14:16 [facility]IN HODGESTrini [facility] PAIN 0 07/14/2023 13:14:16 [facility] HODGESTrini [facility] PULSE 65 07/14/2023 13:14:16 [facility] 16 07/14/2023 13:14:16 [facility] Encounters Combined list of: 1) Encounters from Department of Veterans Affairs facilities going back up to thelast 18 months. 2) Encounters from the Department of [facility] facilities going back up to 280 months. Location Location Details Encounter Type Encounter Number Reason For Visit Attending Provider ADM Date DC Date Status Disposition Source [facility] Outpatient Encounter [id number] 10/11 [facility] Outpatient Encounter [id number] DIPIKA RODRIGUES 10/15 [facility] OFFICE O/P EST LOW 20-29 MIN [id number] Diagnos is: ICD-10- CM M25.572 Pain in left ankle and joints of left foot
Carlos TREJO CRISELDA M 10/18 [facility] ORTHC/PROS TC MGMT SBSQ ENC [id number] Diagnos is: ICD-10- CM M25.571 Pain in right ankle and joints of right foot
DIANNA,WIL DE G 10/18 [facility] OFF/OP EST MAY X REQ PHY/QHP [id number] Diagnos is: ICD-10- CM M25.572 Pain in left ankle and joints of left foot
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< br/> BRITANY RAMIREZ 01/07 [place] [facility] [place] [facility] Outpatient Encounter [id number] 01/10 [place] [facility] [place] [facility] Outpatient Encounter [id number] GILDARDO HERRON 01/12 [place] [facility] [place] [facility] Outpatient Encounter [id number] 01/13 [place] [facility] [place] [facility] Outpatient Encounter [id number] Trini ELY 01/18 [place] [facility] [place] [facility] Outpatient Encounter [id number] 01/24 [place] [facility] [place] [facility] Outpatient Encounter [id number] MARKY PENDLETON 01/25 [place] [facility] [place] [facility] OFFICE O/P EST MOD 30-39 MIN [id number] Diagnos is: ICD-10- CM 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
HOPE THORNE 05/03 [facility] OFF/OP EST MAY X REQ PHY/QHP [id number] Diagnos is: ICD-10- CM L98.9 Disorde r of the skin and subcuta neous tissue, 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
KYLE SEARS 05/03 [facility] OFF/OP EST MAY X REQ PHY/QHP [id number] Diagnos is: ICD-10- CM Z71.9 Truer Pinion And Wheel ing, 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
DANI CALLAHAN 05/18 [facility] Outpatient Encounter [id number] 05/18 [facility] Outpatient Encounter [id number] CRISPIN PARADA RLOS A 05/20 [facility] OFF/OP EST MAY X REQ PHY/QHP [id number] Diagnos is: ICD-10- CM Z48.02 Encount er for removal of sutures
POST,CRYST AL L 05/31 [facility] Outpatient Encounter [id number] 05/31 [facility] Outpatient Encounter [id number] 06/08 [facility] Outpatient Encounter [id number] 06/09 [facility] HC PRO PHONE CALL 11-20 MIN [id number] Diagnos is: ICD-10- CM Z71.9 Truer Pinion And Wheel ing, 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
VANEGAS,TRA CY L 06/09 [facility] Out[facility] Encounter [id number] 06/10 [place] [facility] [place] [facility] Outpatient Encounter [id number] 06/14 [facility] [place] [facility] Outpatient Encounter [id number] 06/25 [facility] OFFICE O/P EST MOD 30 MIN [id number] Diagnos is: ICD-10- CM D48.5 Neoplas m of uncerta in behavio r of skin
FELIPAN OAH I 06/28 [facility] Outpatient Encounter [id number] HEMSENAIT ,RENATE P 06/29 [facility] Outpatient Encounter [id number] 06/30 [facility] Outpatient Encounter [id number] 07/12 [facility] Outpatient Encounter [id number] 07/12 [facility] ECG MONIT/REPR T UP TO 48 HRS [id number] Diagnos is: ICD-10- CM Z13.6 Encount er for screeni ng for cardiov ascular disorde rs
Carlos TREJO ILL M 07/14 [facility] OFFICE O/P EST MOD 30 MIN [id number] Diagnos is: ICD-10- CM I48.91 Unspeci fied atrial fibrill ation<b r/> Carlos TREJO ILL M 07/14 [facility] Outpatient Encounter [id number] 07/15 [facility] [place] [facility] QNHP OL DIG ASSMT&MGMT 11-20 [id number] Diagnos is: ICD-10- CM Z79.01 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 coordinator (curren t) use of anticoa gulants
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
HOPE THORNE E 08/08 [facility] EXT ECG>7D<15D REV&INTERP J [id number] Diagnos is: ICD-10- CM I47.10 Suprave ntricul ar tachyca rdia, 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
LYNSEY KHAN EY A 08/08 [facility] [place] [facility] Outpatient Encounter [id number] 08/08 [facility] [place] [facility] Outpatient Encounter [id number] 08/13 [facility] [place] [facility] Outpatient Encounter [id number] 08/29 [place] [facility] [place] [facility] Outpatient Encounter [id number] 08/31 [place] [facility] [place] [facility] Outpatient Encounter [id number] 09/01 [facility] [place] [facility] OFFICE O/P EST MOD 30 MIN [id number] Diagnos is: ICD-10- CM I48.91 Unspeci fied atrial fibrill ation<b r/> Carlos TREJO 09/11 [facility] [place] [facility] Outpatient Encounter [id number] 09/13 [place] [facility] [place] [facility] Outpatient Encounter [id number] 09/18 [place] [facility] [place] [facility] Outpatient Encounter [id number] 09/21 [place] [facility] [place] [facility] Outpatient Encounter [id number] 09/21 [place] [facility] [place] [facility] Out[facility] Encounter [id number] 09/25 [place] [facility] [place] [facility] Outpatient Encounter [id number] 10/02 [place] [facility] [place] [facility] Outpatient Encounter [id number] 10/10 [place] [facility] [place] [facility] Outpatient Encounter [id number] 11/03 [place] [facility] [place] [facility] Outpatient Encounter [id number] 11/06 [place] [facility] O/P EST HI 40 MIN [id number] Diagnos is: ICD-10- CM R41.81 Age-rel ated cogniti ve decline
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
Jeana GAMING 12/21 [facility] [place] [facility] Outpatient Encounter [id number] 01/02 [facility] [place] [facility] HEARING AID REPAIR/MOD IFYING [id number] Diagnos is: ICD-10- CM H90.3 Sensori neural hearing loss, bilater al
HORACE BURDICK RTHA R 01/11 [facility] [place] [facility] Outpatient Encounter [id number] GURWINDER CRAFT SE 02/19 [facility] [place] [facility] Outpatient Encounter [id number] 02/20 [facility] Social History Combined list of available smoking, tobacco, and other social history from Department of Defense and Veterans Affairs facilities. Social History Type Response Date Comment Sourc e Tobacco smoking status NHIS SD-TOBACCO NEVER USED 09/12/2023 [facility] History of tobacco use SD-TOBACCO NEVER USED 10/18/2022 [facility] History of tobacco use SD-TOBACCO NEVER USED 09/28/2021 [facility] History of tobacco use SD-TOBACCO NEVER USED 11/10/2020 [facility] Plan of Care List of future care activities from Department of [facility] Affairs facilities. Additional future care activities may be listed in the Assessment and Plan section. Date/Time Care Activity Care Activity Detail Facili ty 03/06/2024 AMBULATORY - NONE AMBULATORY - NONE [facility] 03/06/2024 AMBULATORY - MEDICINE AMBULATORY - MEDICI NE [facility] 03/08/2024 AMBULATORY - NONE AMBULATORY - NONE [facility] 03/27/2024 AMBULATORY - REHAB MEDICINE AMBULATORY - REHAB MEDICINE [facility] 05/14/2024 AMBULATORY - SURGERY AMBULATORY - SURGERY [facility] 02/14/2024 Consult Order COMMUNITY CARE-G EC SKILLED HOME CARE Cons Pharmacist Apprentice's Choice [facility] 03/10/2024 Laboratory - Chemistry Order BAS IC METABOLIC PANEL+MG PLASMA [facility] 03/10/2024 Laboratory - Chemistry Order HEMOGLOBIN A 1C BLOOD [facility] 03/10/2024 Laboratory - Chemistry Order TSH W/REFLEX TO FREE T4 PLASMA SP ONCE [facility] 03/10/2024 Laboratory - Chemistry Order CBC BLOOD [facility] 03/10/2024 Laboratory - Chemistry Order LIP ID PANEL,NON-FASTING PLASMA [facility]
--- OUTSIDE RECORDS SUMMARY | 2024-02-24 00:22 | XMS_ITS | Encounter Summary ---
Author Name [facility] [place] Address [address] [place] [address] Care Team Providers Care Child Caregiver Private Home Name Role Phone NATALIA TREJO Primary Care [...] Patient's Relationship to Policy Talavera [facility] ([id number]) PRESCRIPT ION GEHA May 30, 2005 [id number] [phone] SONIA GUTIERRES PATIENT GEHA (SECONDARY ) PREFERRED PROVIDER ORGANIZAT ION (PPO) GEHA A/B PRIMA RY May 30, 2005 [id number] [phone] SONIA GUTIERRES PATIENT GEHA (SECONDARY ) PREFERRED PROVIDER ORGANIZAT ION (PPO) GEHA A&B PRIMA RY May 30, 2005 [id number] SONIA GUTIERRES PATIENT [facility] PREFERRED PROVIDER ORGANIZAT ION (PPO) DO NOT USE May 30, 2005 [id number] TONI BRITO PATIENT MEDICARE (WNR) MEDICARE (M) PART A Jan 29, 2000 PART A [id number] ITZSONIA AJ PATIENT MEDICARE (WNR) MEDICARE (M) PART B Jan 29, 2000 PART B [id number] [phone] SONIA GUTIERRES REINADEJUAN PATIENT Selected Encounter This section includes the information on record at [place] for the Encounter. 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 Date/Time Primary/Secondary Diagnosis Diagnosis Name Provider Source May 16, 2023 12:47 PM PRIMARY Clonic hemifacial spasm, left VITOR THORNE [facility] Plan of Treatment: Future Appointments (+ 6 months) and Future Tests (+/- 45 days) The Plan of Treatment section includes future care activities for the patient from all [place] [facility]. This section includes future appointments and future orders which are active, pending or scheduled. Future Appointments This section includes appointments that were scheduled to occur 6 months from the date of the Encounter, up to a maximum of 20 appointments. The data comes from all [facility]. Appointment Date/Time Appointment Type Appointme nt Facility Name May 09, 2023 03:00 PM AMBULATORY - REHAB MEDICIN E [facility] May 18, 2023 09:15 AM AMBULATORY - SURGERY [facility] May 24, 2023 05:00 PM AMBULATORY - REHAB MEDICIN E [facility] May 31, 2023 01:00 PM AMBULATORY - SURGERY [facility] Jun 24, 2023 09:15 AM AMBULATORY - NONE [facility] Jun 28, 2023 10:40 AM AMBULATORY - SURGERY [facility] Jul 14, 2023 08:00 AM AMBULATORY - MEDICINE [facility] Jul 14, 2023 01:15 PM AMBULATORY - MEDICINE [facility] Aug 03, 2023 07:01 AM AMB[facility]ORY - NONE [place] [facility] Aug 09, 2023 10:30 AM [facility] Aug 09, 2023 11:00 AM AMBULATORY - REHAB MEDICIN E [facility] Sep 09, 2023 08:00 AM AM[facility]ORY - NONE [place] [facility] Sep 12, 2023 09:30 AM AM[facility]ORY - NONE [place] [facility] Sep 12, 2023 10:30 AM AMBUL[facility]ORY - [place]IC[place] [facility] Sep 26, 2023 09:00 AM AMBULATORY - SURGERY [facility] Social History: Smoking Status (Most current) and Tobacco Use (All prior to encounter date) This section includes the most current, and the historical, smoking and tobacco- related health factors from the [place] facility where the Encounter took place. Current Smoking Status This section includes the most current smoking, or tobacco-related health factor, from the [place] facility where the Encounter took place. Date/Time Current Smoking Status Comment Robyn itshawanda October 18, 2022 10:00 AM VA-TOBACCO NEVER USED [facility] Tobacco Use History This section includes a history of the smoking, or tobacco-related health factors, that were collected on or before the date of the Encounter. The data comes from the [place] facility where the Encounter took place. Date/Time [...] the Encounter. The data comes from all [place] treatment facilities. Date/Time Pathology Report Provider Source May 20, 2023 11:08 AM LR SURGICAL PATHOL OGY REPORT: LOCAL TITLE: LR SURGICAL PATHOLOGY REPORT STANDARD TITLE: PATHOLOGY REPORT DATE OF NOTE: MAY 20, 2023@11:08:01 ENTRY DATE: MAY 20, 2023@11:08:01 AUTHOR: BRIAN PARADA COSIGNER: URGENCY: STATUS: COMPLETED $APHDR Reporting Lab: [facility] [CLIA# [id number]] [place] [address] - - - - - - - [...] - - - PATHOLOGY REPORT Accession No. [id number] - - - - - - - [...] - PATHOLOGY REPORT Accession No. [id number] - - - - - - - [...] 6 o'clock tip, en face. CE. (D) [facility]/sd MICROSCOPIC DESCRIPTION: Microscopic examination performed. CI. DIAGNOSIS: Skin; left shoulder; excisional biopsy-- -no evidence of residual carcinoma -scar /es/ BRIAN PARADA M.D. STAFF PATHOLOGIST Signed May 20, 2023@11:08 Performing Laboratory: Surgical Pathology Report Performed By: [facility] [CLIA# [id number]] [place] [address] $FTR - - - - - - [...] - - YARIEL GUTIERRES STANDARD FORM 515 ID:[id number] SEX:F :1935 AGE: 88 LOC:[id number] PCP: Natalia Sales MD /baltazar/ BRIAN PARADA [...] DATE: MAY 03, 2023@09:00:19 AUTHOR: VITOR THORNE EXP COSIGNER: URGENCY: STATUS: COMPLETED Movement Disorders Clinic [...] [facility] [id number]) 6. 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 ([facility] [phone]) - L breast, 1.2 cm, 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; ER/DE pos, HER2 neg. - pT1c, N0, M0-Stage 1A - s/p lumpectomy 06/2014, radiation therapy - On Anastrazole since 07/2014 7. History of cholecystectomy 8. History of total knee arthroplasty - R knee 9. Peripheral vascular disease - s/p stenting Femoral artery, 2008 10. Sleep Apnea ([facility] [id number]) 11. Benign essential hypertension 12. Thoracic aortic aneurysm without rupture FAMILY HISTORY: No neurological disorders. SOCIAL HISTORY: Lives in a senior care community in [place]. PHYSICAL EXAMINATION: Temperature: 97.5 F [36.4 C] [...] hemifacial with onset 1 year ago. RECOMMENDATIONS: RV Botox clinic MRI brain with and without contrast with fine cuts through CN VII. 40 minutes was spent on the date of service reviewing records, evaluating the [place] [id number] in clinic, coordinating care, and documenting the encounter. /baltazar/ VITOR THORNE Physician Signed: 05/04/2023 13:16 VITRO THORNE [facility]
--- OUTSIDE RECORDS SUMMARY | 2024-02-24 00:23 | XMS_ITS | Encounter Summary ---
Author Name [facility] [place] [facility] [place] Address [address] [place] [address] Care Team Providers Care Pan Dumper Name Role Phone DOMINIC TREJO Primary Care [...] Talavera's Name Patient's Relationship to Policy Talavera [facility] ([id number]) PRESCRIPT ION GEHA May [birth year] 2005 [id number] [phone] SONIA MOBLEY PATIENT GEHA (SECONDARY ) PREFERRED PROVIDER ORGANIZAT ION (PPO) GEHA A/B PRIMA RY May 30, 2005 [id number] SONIA MOBLEY PATIENT GEHA (SECONDARY ) PREFERRED PROVIDER ORGANIZAT ION (PPO) GEHA A&B PRIMA RY May 30, 2005 [id number] [phone] SONIA MOBLEY PATIENT [facility] PREFERRED PROVIDER ORGANIZAT ION (PPO) DO NOT USE May 30, 2005 [id number] TONI BRITO PATIENT MEDICARE (WNR) MEDICARE (M) PART A Jan 29, 2000 PART A [id number] [phone] SONIA MOBLEY REINADEJUAN PATIENT MEDICARE (WNR) MEDICARE (M) PART B Jan 29, 2000 PART B [id number] [phone] SONIA MOBLEY PATIENT Selected Encounter This section includes the information on record at [place] for the Encounter. Date/Time Encounter Type Encounter Description Reason Provider Source Nov 22, 2023 11:15 AM Outpatient Encounter COMP [facility] IMANI CRAFT Encounter Template Text not used by [place] Plan of Treatment: Future Appointments (+ 6 months) and Future Tests (+/- 45 days) The Plan of Treatment section includes future care activities for the patient from all [place] [facility]. This section includes future appointments and future orders which are active, pending or scheduled. Future Appointments This section includes appointments that were scheduled to occur 6 months from the date of the Encounter, up to a maximum of 20 appointments. The data comes from all [facility]. Appointment Date/Time Appointment Type Appointme nt Facility Name Dec 19, 2023 09:00 AM AMBULATORY - REHAB MEDICIN [facility] Dec 22, 2023 08:30 AM AMBULATORY - [place]CHIATRY [place] [facility] Jan 12, 2024 12:30 PM AMBULATORY - SURGERY [facility] Mar 06, 2024 09:00 AM AMBULATORY - NONE [facility] Mar 06, 2024 10:00 AM [facility] Mar 08, 2024 08:00 AM AMBULATORY - NONE [facility] Mar 27, 2024 10:30 AM AMBULATORY - REHAB MEDICIN E [facility] May 14, 2024 09:20 AM AMBULATORY - SURGERY [facility] Active, Pending, [...] of theEncounter. The data comes from all [facility] treatment facilities. Test Date/Time Test Type Test Details Facility Name Dec 19, 2023 12:00 AM Laboratory - Chemi stry Order BASIC METABOLIC PANEL+MG PLASMA SP ONCE [facility] Social History: Smoking Status (Most [...] 12, 2023 10:30 AM VA-TOBACCO NEVER USED [facility] Tobacco Use History This section includes a history of the smoking, or tobacco-related health factors, that were collected on or before the date of the Encounter. The data comes from the [place] facility where the Encounter took place. Date/Time Smoking Status/Tobacco Use Comment F acility October 18, 2022 10:00 AM VA-TOBACCO NEVER USED [facility] September 28, 2021 09:30 AM VA-TOBACCO NEVER USED [facility] Nov 10, 2020 08:30 AM VA-TOBACCO NEVER USED [facility] Encounter Notes: All associated encounter notes This section contains the clinical notes associated to the Encounter. Date/Time Encounter Note(s) Provider Source Nov 22, 2023 11:15 AM SOCIAL WORK RISK A SSESSMENT SCREENING NOTE: LOCAL TITLE: SOCIAL WORK TRIAGE ASSESSMENT STANDARD TITLE: SOCIAL WORK RISK ASSESSMENT SCREENING NOTE DATE OF NOTE: NOV 22, 2023@11:15 ENTRY DATE: NOV 22, 2023@11:15:46 AUTHOR: IMANI CRAFT COSIGNER: URGENCY: STATUS: COMPLETED SOCIAL WORK TRIAGE ASSESSMENT Has ADDENDA SOCIAL WORK TRIAGE ASSESSMENT Referral source: Provider Presenting issues: Pt is starting to experience some cognitive decline. Son, Aman, has questions about what resources may be available to her. JENNIFER on file, Summary, Social Work Interventions and Plan: Phone call placed to Aman (ph: [phone]), [facility] an appt. Offered to meet him in-person after the appointment if preferred, he agreed this would be preferred. Met with Aman in Primary Care Social Work office to discuss Calvin's decline and review VA resources for long-term care planning. currently receives weekly nursing visits (Iveth, from [facility]) for medication management and blood pressure monitoring. The facility she lives in, [facility], has 2 weekly bus trips to the grocery store and [facility]. Yarelis drives at present, has not had any accidents or incidents, but family is growing more concerned about her cognitive processing and reaction speed. 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 Aman is on her bank accounts to assist with finances and paying bills. Yarelis utilizes che and accesses the bank/[place] regularly. Last week he asked her to give him the car keys, which she was not ready to do yet. Discussed VA supports available as Calvin continues to age, including: home care services ([facility] and [facility]), [facility] (2 days/week) and respite (hours taken out of home care hours if utilized in-home, otherwise [place] respite is available and [facility]). At present, Aman thinks Yarelis would be interested in [facility] as she is social and enjoys being out and about. NBA will reach out to [facility] coordinator to find out about closest programs to [place] and will share this info with Aman. Reviewed demographics and confirmed the e-contact and NOK is current. Further discussed does not have a medical POA on file and invited Aman to provide a copy (if one exists) or talk with about completing one. Provided blank VA form and return envelope to mail back if completed. Aman will review paperwork they have to see if it includes medical POA or is strictly financial POA. /baltazar/ ROSAURA LEVY VP PUBLIC RELATIONS, [employer] ADVISOR Signed: 11/30/2023 15:09 11/30/2023 ADDENDUM STATUS: COMPLETED F/u call placed to Aman to review closest [facility] programs to Calvin. He voiced potential interest in [facility], depending on availability of transportation. NBA will place [facility] consult and request [facility] coordinator, Julia, reach out to Aman to discuss options. NBA remains available. /ROSAURA Ryder VP PUBLIC RELATIONS, [employer] ADVISOR Signed: 11/30/2023 15:16 11/30/2023 ADDENDUM STATUS: COMPLETED Correction to the above - discussed the program in [place], [facility]. /baltazar/ ROSAURA LEVY VP PUBLIC RELATIONS, ROSAURA Signed: 11/30/2023 15:30 IMANI CRAFT [facility]
--- OUTSIDE RECORDS SUMMARY | 2024-02-24 00:23 | XMS_ITS | Encounter Summary ---
Author Name [facility] [place] Organization [facility] [place] Address [address] [place] [address] Care Team Providers Care Prospecting Driller Name Role Phone DOMINIC TREJO Primary Care [...] Patient's Relationship to Policy [facility] ([id number]) PRESCRIPT ION GEHA May 30, 2005 [id number] [phone] SONIA GUTIERRES PATIENT [facility] (SECONDARY ) PREFERRED PROVIDER ORGANIZAT ION (PPO) GEHA A/B PRIMA RY May 30, 2005 [id number] [phone] SONIA GUTIERRES PATIENT [facility] (SECONDARY ) PREFERRED PROVIDER ORGANIZAT ION (PPO) GEHA A&B PRIMA RY May 30, 2005 [id number] SONIA GUTIERRES PATIENT [facility] PREFERRED PROVIDER ORGANIZAT ION (PPO) DO NOT USE May 30, 2005 [id number] TONI BRITO PATIENT MEDICARE (WNR) MEDICARE (M) PART A Jan 29, 2000 PART A [id number] [phone] ITZSONIA AJ PATIENT MEDICARE (WNR) MEDICARE (M) PART B Jan 29, 2000 PART B [id number] [phone] SONIA GUTIERRES REINADEJUAN PATIENT Selected Encounter This section includes the information on record at [place] for the Encounter. 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 Date/Time Primary/Secondary Diagnosis Diagnosis Name Provider Source Dec 27, 2023 10:26 AM PRIMARY Clonic hemifacial spasm, left VITOR THORNE [facility] Plan of Treatment: Future Appointments (+ 6 months) and Future Tests (+/- 45 days) The Plan of Treatment section includes future care activities for the patient [facility] [place] [facility] This section includes future appointments and future orders which are active, pending or scheduled. Future Appointments This section includes appointments that were scheduled to occur 6 months from the date of the Encounter, up to a maximum of 20 appointments. The data comes from all [place] treatment facilities. Appointment Date/Time Appointment Type Appointme nt Facility Name Dec 22, 2023 08:30 AM AMBULATORY - PS[facility]ATRY [facility] Jan 12, 2024 12:30 PM AMBULATORY - SURGERY [facility] Mar 06, 2024 09:00 AM AMBULATORY - NONE [facility] Mar 06, 2024 10:00 AM [facility] Mar 08, 2024 08:00 AM AMBULATORY - NONE [facility] Mar 27, 2024 10:30 AM AMBULATORY - REHAB MEDICIN E [facility] May 14, 2024 09:20 AM AMBULATORY - SURGERY [facility] Active, Pending, and Scheduled Orders This section includes a listing of several types of active, pending, and scheduled orders, including clinic medications orders, diagnostic test orders, procedure orders and consult orders; where the start date of the order is 45 days before the date of the Encounter or 45 days after the date of theEncounter. The data comes from all [place] treatment facilities. Test Date/Time Test Type Test Details Facility Name Dec 19, 2023 12:00 AM Laboratory - Chemi stry Order BASIC METABOLIC PANEL+MG PLASMA SP ONCE [facility] Vital Signs: All taken on the encounter date This section contains inpatient and outpatient Vital Signs collected on the date of the Encounter. Date/Time Temperature Pulse Blood Pressure Respiratory Rate SP02 Pain Height Weight Body Mass Index Source Dec 19, 2023 09:00 AM 98.1 66 154/82 18 97 0 [place] [facility] Social History: Smoking Status (Most current) and Tobacco Use (All prior to encounter date) This section includes the most current, and the historical, smoking and tobacco- related health factors from the [place] facility where the Encounter took place. Current Smoking Status This section includes the most current smoking, or tobacco-related health factor, from the [place] facility where the Encounter took place. Date/Time Current Smoking Status Comment Robyn baez Sep 12, 2023 10:30 AM [place]-TOBACCO NEVER USED [facility] Tobacco Use History This section includes a history of the smoking, or tobacco-related health factors, that were collected on or before the date of the Encounter. The data comes from the [place] facility where the Encounter took place. Date/Time Smoking Status/Tobacco Use Comment F acnelia October 18, 2022 10:00 AM [place]-TOBACCO NEVER USED [facility] September 28, 2021 09:30 AM VA-TOBACCO NEVER USED [facility] Nov 10, 2020 08:30 AM VA-TOBACCO NEVER USED [facility] Encounter Notes: All associated encounter notes This section contains the clinical notes associated to the Encounter. Date/Time Encounter Note(s) Provider Source Dec 19, 2023 09:01 AM PHYSICAL MEDICINE REHAB NURSING NOTE: LOCAL TITLE: REHAB MEDICINE CLINIC NURSING NOTE STANDARD TITLE: PHYSICAL MEDICINE REHAB NURSING NOTE DATE OF NOTE: DEC 19, 2023@09:01 ENTRY DATE: DEC 19, 2023@09:02:03 AUTHOR: DIANA ROBB COSIGNER: URGENCY: STATUS: COMPLETED Type of visit: NEUROLOGY Appointment Check In: DR. THORNE Reason for Visit: RTC NERUO MVMT Vital Signs: Blood Pressure: 154/82 (12/19/2023 09:00) RECHECK 147/76 's blood pressure elevated this appointment. [place] states she took her blood pressure medication this morning. denies having chest pain, shortness of breath, lightheadedness, blurred vision, dizziness, or headache currently. states she has her blood pressure monitored once a week by home care nurse. Encouraged to continue to monitor her blood pressure at home and take medications as prescribed. Informed to contact PCP if blood pressure remains elevated or if she becomes symptomatic, she is to obtain medical attention. Patient and son verbalizes understanding and agrees with this plan. Pulse: 66 (12/19/2023 09:00) Respiration: 18 (12/19/2023 09:00) Temperature: 98.1 F [36.7 C] (12/19/2023 09:00) Weight: 157.8 lb [71.58 kg] (11/14/2023 09:43) Height: 61 in [154.9 cm] (11/14/2023 09:43) BMI: 29.9 Pain: 0 (12/19/2023 09:00) Allergies: Patient has answered NKA Medications: Active [...] DAY FOR BLOOD PRESSURE 10) METOPROLOL SUCCINATE 25MG SA TAB TAKE ONE [...] MOUTH ACTIVE EVERY DAY FOR BLOOD PRESSURE Patient reports the following changes regarding the current pharmacy list of medications: reports no changes to the above medication list. The above medication list confirmed with patient. A copy of the above medication list given to the MD for review and update. Provider will give printed copy of medication list to patient with any changes documented on printed medication list. /baltazar/ DIANA ROBB RN Signed: 12/19/2023 09:08 DIANA ROBB [facility] Dec 18, 2023 10:32 PM NEUROLOGY ATTENDING NOTE: LOCAL TITLE: NEUROLOGY CLINIC NOTE STANDARD TITLE: NEUROLOGY ATTENDING NOTE DATE OF NOTE: DEC 18, 2023@22:32 ENTRY DATE: DEC 18, 2023@22:32:58 AUTHOR: VITOR THORNE COSIGNER: URGENCY: STATUS: COMPLETED SUBJECT: Movement Disorders Botulinum Toxin Clinic Note Movement Disorders Botulinum Toxin Clinic Note Last Visit: 08/09/2023 for Botulinum toxin injections Chief Complaint: Left hemifacial spasm Yariel Gutierres is an 88-year-old woman with left hemifacial with onset in 2021 who has had an excellent response to botulinum toxin injections. 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 History of Present Illness: Excellent response to last injections. Did very well until last couple of weeks some return of twitching. She had to cancel her initial 11/09/23 appointment due to a scheduling conflict, but her son thinks that that would have been perfect timing to repeat the injections. No side effects. Current Medications: Active Outpatient Medications (including Supplies): [...] DAY FOR BLOOD PRESSURE 10) METOPROLOL SUCCINATE 25MG SA TAB TAKE ONE [...] MOUTH ACTIVE EVERY DAY FOR BLOOD PRESSURE ALLERGIES: Patient has answered NKA Physical Examination: Vital Signs: Pulse: 66 (12/19/2023 09:00) Respiration: 18 (12/19/2023 09:00) Temperature: 98.1 F [36.7 C] (12/19/2023 09:00) Weight: 157.8 lb [71.58 kg] (11/14/2023 09:43) Height: 61 in [154.9 cm] (11/14/2023 09:43) BMI: 29.9 Pain: 0 (12/19/2023 09:00) Neurological exam: Alert and fully oriented with fluent speech and no dysarthria. Able to provide a detailed medical history. Mild intermittent left hemifacial spasm Procedure: Botulinum toxin injection for treatment of left hemifacial spasm. After the patient's identity was verified and the appropriate records were re-reviewed, the risks and benefits of botulinum toxin injections were reviewed with the patient. Onabotulinum toxin type A Botox was reconstituted in 1:1 dilution with 0.9% normal saline and the following injections were performed under EMG guidance(Please see details of the injection locations in [...] Used: Onabotulinumtoxin A, 100 unit vial Lot#: [id number] Expiration Date: 10/2025 ASSESSMENT: Yariel Gutierres is an 88-year-old woman with left hemifacial with onset in 2021 who has had an excellent response to botulinum toxin injections. 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 RECOMMENDATIONS: Today we did botulinum toxin injections for treatment of left hemifacial spasm. Follow-up in 3 months to consider repeat injections. 35 minutes was spent on the date of service reviewing records, evaluating the [id number], coordinating care, and documenting the encounter. /baltazar/ IVTOR THORNE Physician Signed: 12/22/2023 23:57 VITOR THORNE [facility]
--- OUTSIDE RECORDS SUMMARY | 2024-02-24 00:23 | XMS_ITS | Encounter Summary ---
Author Name [facility] ([place]) Organization [facility]) Address [address] [place] [address] Care Team Providers Care Sandwich Maker Name Role Phone NATALIA TREJO Primary Care [...] [facility] ([id number]) PRESCRIPT ION GEHA May 30, 2005 [id number] [phone] SONIA MOBLEY PATIENT GEHA (SECONDARY ) PREFERRED PROVIDER ORGANIZAT ION (PPO) GEHA A/B PRIMA RY May 30, 2005 [id number] [phone] SONIA MOBLEY PATIENT GEHA (SECONDARY ) PREFERRED PROVIDER ORGANIZAT ION (PPO) GEHA A&B PRIMA RY May 30, 2005 [id number] SONIA MOBLEY PATIENT [facility] PREFERRED PROVIDER ORGANIZAT ION (PPO) DO NOT USE May 30, 2005 [id number] JENNIFERNOREENTONI Olvera PATIENT MEDICARE (WNR) MEDICARE (M) PART A Jan 29, 2000 PART A [id number] SONIA MOBLYE LUCINAHEMALATHA PATIENT MEDICARE (WNR) MEDICARE (M) PART B Jan 29, 2000 PART B [id number] SONIA MOBLEY PATIENT Selected Encounter This section includes the information on record at OR for the Encounter. Date/Time Encounter Type Encounter Description Reason Provider Source Nov 14, 2023 10:00 AM OFFICE O/P EST HI 40 MIN COMP [facility]MS [facility] ICD-10-CM R41.81 Age-related cognitive decline NATALIA TREJO [facility] Encounter Template Text not used by OR Assessments - Encounter Diagnoses This section includes the primary and secondary diagnoses documented for the Encounter. Date/Time Primary/Secondary Diagnosis Diagnosis Name Provider Source Nov 24, 2023 01:27 PM PRIMARY Age-related cognitive decline NATALIA TREJO [facility] Nov 24, 2023 01:27 PM SECONDARY Essential (primary) hypertension NATALIA TREJO [facility] Plan of Treatment: Future Appointments (+ 6 months) and Future Tests (+/- 45 days) The Plan of Treatment section includes future care activities for the patient from all OR treatmentfacilities. This section includes future appointments and [...] 22, 2023 09:20 AM AMBULATORY - SURGERY [facility] Dec 19, 2023 09:00 AM AMBULATORY - REHAB MEDICIN E [facility] Dec 22, 2023 08:30 AM [facility] Jan 12, 2024 12:30 PM AMBULATORY - SURGERY [facility] Mar 06, 2024 09:00 AM AMBULATORY - NONE [facility] Mar 06, 2024 10:00 AM [facility] Mar 08, 2024 08:00 AM AMBULATORY - NONE [facility] Mar 27, 2024 10:30 AM AMBULATORY - REHAB MEDICIN E [facility] May 14, 2024 09:20 AM AMBULATORY - SURGERY [facility] Active, Pending, and Scheduled Orders This section includes a listing of several types of active, pending, and scheduled orders, including clinic medications orders, diagnostic test orders, procedure orders and consult orders; where the start date of the order is 45 days before the date of the Encounter or 45 days after the date of theEncounter. The data comes from all [place] treatment facilities. Test Date/Time Test Type Test Details Facility Name Dec 19, 2023 12:00 AM Laboratory - Chemi stry Order BASIC METABOLIC PANEL+MG PLASMA SP ONCE [facility] Vital Signs: All taken on the encounter date This section contains inpatient and outpatient Vital Signs collected on the date of the Encounter. Date/Time Temperature Pulse Blood Pressure Respiratory Rate SP02 Pain Height Weight Body Mass Index Source Nov 14, 2023 10:57 AM 151/78 [facility] Nov 14, 2023 09:43 AM 67 178/75 16 98 0 61 157.8 30 [facility] Social History: Smoking Status (Most current) [...] Robyn baez Sep 12, 2023 10:30 AM OR-TOBACCO NEVER USED [facility] Tobacco Use [...] [facility] Nov 10, 2020 08:30 AM OR-TOBACCO NEVER USED [facility] Encounter Notes: All associated encounter notes This section contains the clinical notes associated to the Encounter. Date/Time Encounter Note(s) Provider Source Nov 18, 2023 08:37 AM ADDENDUM: LOCAL TITLE: Addendum STANDARD TITLE: ADDENDUM DATE OF NOTE: NOV 18, 2023@08:37:16 ENTRY DATE: NOV 18, 2023@08:37:17 AUTHOR: MICKI JAIN COSIGNER: URGENCY: STATUS: COMPLETED RN spoke with HC RN visits will increase to weekly HC RN informed of med change HC RN will call PACT RN after obtaining 1 month of home BP readings HC RN is requesting locked med box as vet has history or rearranging med set ups after RN leaves /es/ MICKI JAIN REGISTERED NURSE Signed: 11/18/2023 08:38 Receipt Acknowledged By: 11/18/2023 10:38 /es/ Natalia Sales MD STAFF PHYSICIAN 11/21/2023 08:25 /es/ MIC PLASCENCIA, PharmD, BCPP, NCMP Clinical Pharmacist Practitioner --- Original Document --- 11/14/23 [facility]OM[facility]S CLINIC NOTE: Nurse's Notes Reviewed. Chief Complaint: f/u S: The patient is a 88 yo FEMALE who comes in today for f/u Will eat a grain cereal with breakfast. Has problems with an explosive bowel movement. This does not happen when she doesn't have the grain cereal. Also, someone came and lined up her box of medications. Also wonders if she should be spreading out her meds as opposed to taking them before breakfast. Takes metoprolol in the evning. Has home health nurse-Iveth...has missed a few appts b/c no one has answered the door. Does need to have hearing aids in to hear. Had to help with the manor this year and also didn't do her taxes this year. Also haven't found the 1099 forms that were sent. Pt's son, Aman, is here with her today. They have been noticing some cognitive changes at home. This is the first year she's had problems with her taxes. Pays the manor monthly, which covers most expenses. Aman is joint on her checking account, so can see what is going on. Past medical history/Active Problems: Active Problems: Active [...] - 2011 4. Polymyalgia rheumatica 5. Prediabetes ([facility] [id number]) 6. 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 - pT1c, N0, M0-Stage 1A - s/p lumpectomy 06/2014, radiation therapy - On Anastrazole since 07/2014 7. History of cholecystectomy 8. History of total knee arthroplasty - R knee 9. Peripheral vascular disease - s/p stenting Femoral artery, 2008 10. Sleep Apnea ([facility] [id number]) 11. Benign essential hypertension 12. 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 Atrial fibrillation 15. Long-term current use of anticoagulant Review of Systems: 10 point ROS including constitutional, eyes, respiratory, cardiovascular, pulmonary, gastroenterology, genitourinary, integumentary, musculoskeletal, pschiatric were all negative except for pertinent positive noted in my HPI. Physical Exams: Vitals: BP: 151/78 P: 67 (11/14/2023 09:43) R: 16 (11/14/2023 09:43) T: 97.8 F [36.6 C] (08/09/2023 10:51) WT: 157.8 lb [71.58 kg] (11/14/2023 09:43) O2 Sat: 98% (11/14/2023 09:43) BMI: 29.9 BMI > 25 Assessment General: Pleasant female, in NAD Resp: non-labored breathing CV: Well-perfused Neuro: AOX3, no focal deficits Mini-co word recall: 3/3 Clock test: [place] of clock and hands largely correct; wrote 13 and 14 for the numbers, then changed 3 to 5; did not write numbers 4, 5, 7, 8. Assessment/Plan: The patient is a 88 yo FEMALE who comes in for follow up visit today. #. Cognitive concerns. -Will have pt see [facility] for mental status eval -Consider neuropsych referral. #. HTN. -Will have PACT RN call Home health RN to get most recent BPs. Also see if home health nurse can come weekly. Will f/u after neuropsych testing complete. 45 min spent on evaluation, including evaluation/discussion with pt, coordination of care, and discussion with pt's son, Aman. Natalia Sales MD Staff Physician Section of Women's Health /baltazar/ Natalia Sales MD STAFF PHYSICIAN Signed: 11/14/2023 11:02 11/14/2023 ADDENDUM STATUS: COMPLETED Please call pt's home health nurse, Iveth, to see if we can get pt's most recent BPs at home. also, can you check the frequency of which pt has visits? Would benefit from visits at a set time every week given cognitive concerns. /baltazar/ Natalia Sales MD STAFF PHYSICIAN Signed: 11/14/2023 11:03 Receipt Acknowledged By: 11/15/2023 15:07 /baltazar/ MICKI JAIN REGISTERED NURSE 11/14/2023 ADDENDUM STATUS: COMPLETED Pt is starting to experience some cognitive decline. Son, Aman, has questions about what resources may be available to her. Release is in chart. HIs number is [phone]. Thx. /baltazar/ Natalia Sales MD STAFF PHYSICIAN Signed: 11/14/2023 11:10 Receipt Acknowledged By: 11/14/2023 14:11 /es/ ROSAURA LEVY SURVEYOR MINE, ROSAURA 11/14/2023 ADDENDUM STATUS: COMPLETED RN attempted phone call to ASAEL Lan RN Voicemail left asking HC RN to return call. Direct number provided for call back. /baltazar/ MICKI JAIN REGISTERED NURSE Signed: 11/14/2023 11:32 11/15/2023 ADDENDUM STATUS: COMPLETED RN spoke to HC RN, Consuelo via phone. Consuelo is at vet's home every other week, on AM. Consuelo has been providing care since August. Upcoming visit is always written on vet's calendar and son is also informed. Consuelo does note that she has observed signs of confusion in vet but these have been present as long as she has been caregiving. Examples given are vet not knowing who HC RN is depsite repeat visits. Vet will also mix up meds after HC RN has left. HC RN reports the following home BP readings 11/09 164/87 10/24 180/80 10/12 155/74 /baltazar/ MICKI JAIN REGISTERED NURSE Signed: 11/15/2023 15:11 Receipt Acknowledged By: 11/15/2023 16:34 /baltazar/ Natalia Sales MD STAFF PHYSICIAN 11/15/2023 ADDENDUM STATUS: COMPLETED Can we increase visits to weekly? BP is not at goal. Adding 25mg spironolactone daily (to be taken in AM). Please update pt and home health nurse. Please check in on BPs in 1 month. This can be with HHN. Also, please have pt get BMP (ordered) checked on 12/18 when here for neurology appt. May be helpful to also commmunicate this with pt's son, Aman. Thanks! /talat Sales MD STAFF PHYSICIAN Signed: 11/15/2023 16:37 Receipt Acknowledged By: 11/18/2023 08:37 /baltazar/ MICKI JAIN REGISTERED NURSE 11/17/2023 ADDENDUM STATUS: COMPLETED AMIRA Newton VM to HC RN /talat JAIN REGISTERED NURSE Signed: 11/17/2023 08:48 11/18/2023 ADDENDUM STATUS: GRIFFIN newton also informed of the above /baltazar/ MICKI JAIN REGISTERED NURSE Signed: 11/18/2023 08:39 MICKI JAIN [facility] Nov 15, 2023 04:35 PM ADDENDUM: LOCAL TITLE: Addendum STANDARD TITLE: ADDENDUM DATE OF NOTE: NOV 15, 2023@16:35:03 ENTRY DATE: NOV 15, 2023@16:35:04 AUTHOR: WEI TREJO EXP COSIGNER: URGENCY: STATUS: COMPLETED Can we increase visits to weekly? BP is not at goal. Adding 25mg spironolactone daily (to be taken in AM). Please update pt and home health nurse. Please check in on BPs in 1 month. This can be with HHN. Also, please have pt get BMP (ordered) checked on 12/18 when here for neurology appt. May be helpful to also commmunicate this with pt's son, Aman. Thanks! /baltazar/ Natalia Sales MD STAFF PHYSICIAN Signed: 11/15/2023 16:37 Receipt Acknowledged By: 11/18/2023 08:37 /baltazar/ MICKI JAIN REGISTERED NURSE --- Original Document --- 11/14/23 WOMEN'S CLINIC NOTE: Nurse's Notes Reviewed. Chief Complaint: f/u S: The patient is a 88 yo FEMALE who comes in today for f/u Will eat a grain cereal with breakfast. Has problems with an explosive bowel movement. This does not happen when she doesn't have the grain cereal. Also, someone came and lined up her box of medications. Also wonders if she should be spreading out her meds as opposed to taking them before breakfast. Takes metoprolol in the evning. Has home health nurse-Iveth...has missed a few appts b/c no one has answered the door. Does need to have hearing aids in to hear. Had to help with the manor this year and also didn't do her taxes this year. Also haven't found the 1099 forms that were sent. Pt's son, Aman, is here with her today. They have been noticing some cognitive changes at home. This is the first year she's had problems with her taxes. Pays the manor monthly, which covers most expenses. Aman is joint on her checking account, so can see what is going on. Past medical history/Active Problems: Active Problems: Active [...] - 2011 4. Polymyalgia rheumatica 5. Prediabetes ([facility] [id number]) 6. 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 ([facility] [id number]) - L breast, 1.2 cm, 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; ER/AK pos, HER2 neg. - pT1c, N0, M0-Stage 1A - s/p lumpectomy 06/2014, radiation therapy - On Anastrazole since 07/2014 7. History of cholecystectomy 8. History of total knee arthroplasty - R knee 9. Peripheral vascular disease - s/p stenting Femoral artery, 2008 10. Sleep Apnea ([facility] [id number]) 11. Benign essential hypertension 12. 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 Atrial fibrillation 15. Long-term current use of anticoagulant Review of Systems: 10 point ROS including constitutional, eyes, respiratory, cardiovascular, pulmonary, gastroenterology, genitourinary, integumentary, musculoskeletal, pschiatric were all negative except for pertinent positive noted in my HPI. Physical Exams: Vitals: BP: 151/78 P: 67 (11/14/2023 09:43) R: 16 (11/14/2023 09:43) T: 97.8 F [36.6 C] (08/09/2023 10:51) WT: 157.8 lb [71.58 kg] (11/14/2023 09:43) O2 Sat: 98% (11/14/2023 09:43) BMI: 29.9 BMI > 25 Assessment General: Pleasant female, in NAD Resp: non-labored breathing CV: Well-perfused Neuro: AOX3, no focal deficits Mini-co word recall: 07/30 Clock test: [place] of clock and hands largely correct; wrote 13 and 14 for the numbers, then changed 3 to 5; did not write numbers 4, 5, 7, 8. Assessment/Plan: The patient is a 88 yo FEMALE who comes in for follow up visit today. #. Cognitive concerns. -Will have pt see [facility] for mental status eval -Consider neuropsych referral. #. HTN. -Will have PACT RN call Home health RN to get most recent BPs. Also see if home health nurse can come weekly. Will f/u after neuropsych testing complete. 45 min spent on evaluation, including evaluation/discussion with pt, coordination of care, and discussion with pt's son, Aman. Natalia Sales MD Staff Physician Section of Women's Health /baltazar/ Natalia Sales MD STAFF PHYSICIAN Signed: 11/14/2023 11:02 11/14/2023 ADDENDUM STATUS: COMPLETED Please call pt's home health nurse, Iveth, to see if we can get pt's most recent BPs at home. also, can you check the frequency of which pt has visits? Would benefit from visits at a set time every week given cognitive concerns. /baltazar/ Natalia Sales MD STAFF PHYSICIAN Signed: 11/14/2023 11:03 Receipt Acknowledged By: 11/15/2023 15:07 /es/ MICKI JAIN REGISTERED NURSE 11/14/2023 ADDENDUM STATUS: COMPLETED Pt is starting to experience some cognitive decline. Son, Aman, has questions about what resources may be available to her. Release is in chart. HIs number is [phone]. Thx. /baltazar/ Natalia Sales MD STAFF PHYSICIAN Signed: 11/14/2023 11:10 Receipt Acknowledged By: 11/14/2023 14:11 /es/ IMANI CRAFT [facility] SURVEYOR MINE, MODELER 11/14/2023 ADDENDUM STATUS: COMPLETED RN attempted phone call to ASAEL Lan RN Voicemail left asking HC RN to return call. Direct number provided for call back. /baltazar/ MICKI JAIN REGISTERED NURSE Signed: 11/14/2023 11:32 11/15/2023 ADDENDUM STATUS: COMPLETED RN spoke to HC Consuelo COLLIER via phone. Consuelo is at vet's home every other week, on AM. Consuelo has been providing care since August. Upcoming visit is always written on vet's calendar and son is also informed. Consuelo does note that she has observed signs of confusion in vet but these have been present as long as she has been caregiving. Examples given are vet not knowing who HC RN is depsite repeat visits. Vet will also mix up meds after HC RN has left. HC RN reports the following home BP readings 11/09 164/87 10/24 180/80 16 155/74 /baltazar/ MICKI JAIN REGISTERED NURSE Signed: 11/15/2023 15:11 Receipt Acknowledged By: 11/15/2023 16:34 /talat Sales MD STAFF PHYSICIAN 11/17/2023 ADDENDUM STATUS: COMPLETED RN updated [facility] to HC RN /baltazar/ MICKI JAIN REGISTERED NURSE Signed: 11/17/2023 08:48 11/18/2023 ADDENDUM STATUS: UNSIGNED You may not VIEW this UNSIGNED Addendum. NATALIA TREJO [facility] Nov 15, 2023 03:07 PM ADDENDUM: LOCAL TITLE: Addendum STANDARD TITLE: ADDENDUM DATE OF NOTE: NOV 15, 2023@15:07:20 ENTRY DATE: NOV 15, 2023@15:07:21 AUTHOR: MICKI JAIN COSIGNER: URGENCY: STATUS: COMPLETED RN spoke to HC RN Consuelo via phone. Consuelo is at vet's home every other week, on AM. Consuelo has been providing care since August. Upcoming visit is always written on vet's calendar and son is also informed. Consuelo does note that she has observed signs of confusion in vet but these have been present as long as she has been caregiving. Examples given are vet not knowing who HC RN is depsite repeat visits. Vet will also mix up meds after HC RN has left. HC RN reports the following home BP readings 11/09 164/87 28 180/80 16 155/74 /baltazar/ MICKI JAIN REGISTERED NURSE Signed: 11/15/2023 15:11 Receipt Acknowledged By: 11/15/2023 16:34 /talat Sales MD STAFF PHYSICIAN --- Original Document --- 11/14/23 WOMEN'S CLINIC NOTE: Nurse's Notes Reviewed. Chief Complaint: f/u S: The patient is a 88 yo FEMALE who comes in today for f/u Will eat a grain cereal with breakfast. Has problems with an explosive bowel movement. This does not happen when she doesn't have the grain cereal. Also, someone came and lined up her box of medications. Also wonders if she should be spreading out her meds as opposed to taking them before breakfast. Takes metoprolol in the evning. Has home health nurse-Iveth...has missed a few appts b/c no one has answered the door. Does need to have hearing aids in to hear. Had to help with the manor this year and also didn't do her taxes this year. Also haven't found the 1099 forms that were sent. Pt's son, Aman, is here with her today. They have been noticing some cognitive changes at home. This is the first year she's had problems with her taxes. Pays the manor monthly, which covers most expenses. Aman is joint on her checking account, so can see what is going on. Past medical history/Active Problems: Active Problems: Active [...] - 2011 4. Polymyalgia rheumatica 5. Prediabetes ([facility] [id number]) 6. 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 ([facility] [id number]) - L breast, 1.2 cm, 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; ER/AK pos, HER2 neg. - pT1c, N0, M0-Stage 1A - s/p lumpectomy 06/2014, radiation therapy - On Anastrazole since 07/2014 7. History of cholecystectomy 8. History of total knee arthroplasty - R knee 9. Peripheral vascular disease - s/p stenting Femoral artery, 2008 10. Sleep Apnea ([facility] [id number]) 11. Benign essential hypertension 12. 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 Atrial fibrillation 15. Long-term current use of anticoagulant Review of Systems: 10 point ROS including constitutional, eyes, respiratory, cardiovascular, pulmonary, gastroenterology, genitourinary, integumentary, musculoskeletal, pschiatric were all negative except for pertinent positive noted in my HPI. Physical Exams: Vitals: BP: 151/78 P: 67 (11/14/2023 09:43) R: 16 (11/14/2023 09:43) T: 97.8 F [36.6 C] (08/09/2023 10:51) WT: 157.8 lb [71.58 kg] (11/14/2023 09:43) O2 Sat: 98% (11/14/2023 09:43) BMI: 29.9 BMI > 25 Assessment General: Pleasant female, in NAD Resp: non-labored breathing CV: Well-perfused Neuro: AOX3, no focal deficits Mini-co word recall: 3/3 Clock test: [place] of clock and hands largely correct; wrote 13 and 14 for the numbers, then changed 3 to 5; did not write numbers 4, 5, 7, 8. Assessment/Plan: The patient is a 88 yo FEMALE who comes in for follow up visit today. #. Cognitive concerns. -Will have pt see [facility] for mental status eval -Consider neuropsych referral. #. HTN. -Will have PACT RN call Home health RN to get most recent BPs. Also see if home health nurse can come weekly. Will f/u after neuropsych testing complete. 45 min spent on evaluation, including evaluation/discussion with pt, coordination of care, and discussion with pt's son, Aman. Natalia Sales MD Staff Physician Section of Women's Health // Natalia Sales MD STAFF PHYSICIAN Signed: 11/14/2023 11:02 11/14/2023 ADDENDUM STATUS: COMPLETED Please call pt's home health nurse, Iveth, to see if we can get pt's most recent BPs at home. also, can you check the frequency of which pt has visits? Would benefit from visits at a set time every week given cognitive concerns. /talat Sales MD STAFF PHYSICIAN Signed: 11/14/2023 11:03 Receipt Acknowledged By: 11/15/2023 15:07 /baltazar/ MICKI JAIN REGISTERED NURSE 11/14/2023 ADDENDUM STATUS: COMPLETED Pt is starting to experience some cognitive decline. SonAman, has questions about what resources may be available to her. Release is in chart. HIs number is [phone]. Thx. /talat Sales MD STAFF PHYSICIAN Signed: 11/14/2023 11:10 Receipt Acknowledged By: 11/14/2023 14:11 /baltazar/ ROSAURA LEVY SURVEYOR MINE, ROSAURA 11/14/2023 ADDENDUM STATUS: COMPLETED RN attempted phone call to Edyta RN Voicemail left asking HC RN to return call. Direct number provided for call back. /baltazar/ MICKI JAIN REGISTERED NURSE Signed: 11/14/2023 11:32 11/15/2023 ADDENDUM STATUS: UNSIGNED You may not VIEW this UNSIGNED Addendum. MICKI JAIN [facility] Nov 14, 2023 11:03 AM ADDENDUM: LOCAL TITLE: Addendum STANDARD TITLE: ADDENDUM DATE OF NOTE: NOV 14, 2023@11:03:50 ENTRY DATE: NOV 14, 2023@11:03:50 AUTHOR: WIE TREJO EXP COSIGNER: URGENCY: STATUS: COMPLETED Pt is starting to experience some cognitive decline. SonAman, has questions about what resources may be available to her. Release is in chart. HIs number is [phone]. Thx. /talat Sales MD STAFF PHYSICIAN Signed: 11/14/2023 11:10 Receipt Acknowledged By: 11/14/2023 14:11 /baltazar/ ROSAURA LEVY SURVEYOR MINE, MODELER --- Original Document --- 11/14/23 WOMEN'S CLINIC NOTE: Nurse's Notes Reviewed. Chief Complaint: f/u S: The patient is a 88 yo FEMALE who comes in today for f/u Will eat a grain cereal with breakfast. Has problems with an explosive bowel movement. This does not happen when she doesn't have the grain cereal. Also, someone came and lined up her box of medications. Also wonders if she should be spreading out her meds as opposed to taking them before breakfast. Takes metoprolol in the evning. Has home health nurse-Iveth...has missed a few appts b/c no one has answered the door. Does need to have hearing aids in to hear. Had to help with the manor this year and also didn't do her taxes this year. Also haven't found the 1099 forms that were sent. Pt's son, Aman, is here with her today. They have been noticing some cognitive changes at home. This is the first year she's had problems with her taxes. Pays the manor monthly, which covers most expenses. Aman is joint on her checking account, so can see what is going on. Past medical history/Active Problems: Active Problems: Active [...] - 2011 4. Polymyalgia rheumatica 5. Prediabetes ([facility] [id number]) 6. 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 - pT1c, N0, M0-Stage 1A - s/p lumpectomy 06/2014, radiation therapy - On Anastrazole since 07/2014 7. History of cholecystectomy 8. History of total knee arthroplasty - R knee 9. Peripheral vascular disease - s/p stenting Femoral artery, 2008 10. Sleep Apnea ([facility] [id number]) 11. Benign essential hypertension 12. 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 Atrial fibrillation 15. Long-term current use of anticoagulant Review of Systems: 10 point ROS including constitutional, eyes, respiratory, cardiovascular, pulmonary, gastroenterology, genitourinary, integumentary, musculoskeletal, pschiatric were all negative except for pertinent positive noted in my HPI. Physical Exams: Vitals: BP: 151/78 P: 67 (11/14/2023 09:43) R: 16 (11/14/2023 09:43) T: 97.8 F [36.6 C] (08/09/2023 10:51) WT: 157.8 lb [71.58 kg] (11/14/2023 09:43) O2 Sat: 98% (11/14/2023 09:43) BMI: 29.9 BMI > 25 Assessment General: Pleasant female, in NAD Resp: non-labored breathing CV: Well-perfused Neuro: AOX3, no focal deficits Mini-co word recall: 3/3 Clock test: [place] of clock and hands largely correct; wrote 13 and 14 for the numbers, then changed 3 to 5; did not write numbers 4, 5, 7, 8. Assessment/Plan: The patient is a 88 yo FEMALE who comes in for follow up visit today. #. Cognitive concerns. -Will have pt see [facility] for mental status eval -Consider neuropsych referral. #. HTN. -Will have PACT RN call Home health RN to get most recent BPs. Also see if home health nurse can come weekly. Will f/u after neuropsych testing complete. 45 min spent on evaluation, including evaluation/discussion with pt, coordination of care, and discussion with pt's son, Aman. Natalia Sales MD Staff Physician Section of Women's Health // Natalia Sales MD STAFF PHYSICIAN Signed: 11/14/2023 11:02 11/14/2023 ADDENDUM STATUS: COMPLETED Please call pt's home health nurse, Iveth, to see if we can get pt's most recent BPs at home. also, can you check the frequency of which pt has visits? Would benefit from visits at a set time every week given cognitive concerns. /talat Sales MD STAFF PHYSICIAN Signed: 11/14/2023 11:03 Receipt Acknowledged By: * AWAITING SIGNATURE * MICKI JAIN 11/14/2023 ADDENDUM STATUS: COMPLETED RN attempted phone call to Edyta RN Voicemail left asking HC RN to return call. Direct number provided for call back. /talat JAIN REGISTERED NURSE Signed: 11/14/2023 11:32 NATALIA TREJO [facility] Nov 14, 2023 11:02 AM ADDENDUM: LOCAL TITLE: Addendum STANDARD TITLE: ADDENDUM DATE OF NOTE: NOV 14, 2023@11:02:44 ENTRY DATE: NOV 14, 2023@11:02:45 AUTHOR: WEI TREJO EXP COSIGNER: URGENCY: STATUS: COMPLETED Please call pt's home health nurse, Iveth, to see if we can get pt's most recent BPs at home. also, can you check the frequency of which pt has visits? Would benefit from visits at a set time every week given cognitive concerns. /talat Sales MD STAFF PHYSICIAN Signed: 11/14/2023 11:03 Receipt Acknowledged By: 11/15/2023 15:07 /baltazar/ MICKI JAIN REGISTERED NURSE --- Original Document --- 11/14/23 [facility]OMEN[facility]S CLINIC NOTE: Nurse's Notes Reviewed. Chief Complaint: f/u S: The patient is a 88 yo FEMALE who comes in today for f/u Will eat a grain cereal with breakfast. Has problems with an explosive bowel movement. This does not happen when she doesn't have the grain cereal. Also, someone came and lined up her box of medications. Also wonders if she should be spreading out her meds as opposed to taking them before breakfast. Takes metoprolol in the evning. Has home health nurse-Iveth...has missed a few appts b/c no one has answered the door. Does need to have hearing aids in to hear. Had to help with the manor this year and also didn't do her taxes this year. Also haven't found the 1099 forms that were sent. Pt's son, Aman, is here with her today. They have been noticing some cognitive changes at home. This is the first year she's had problems with her taxes. Pays the manor monthly, which covers most expenses. Aman is joint on her checking account, so can see what is going on. Past medical history/Active Problems: Active Problems: Active [...] - 2011 4. Polymyalgia rheumatica 5. Prediabetes ([facility] [id number]) 6. 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 - pT1c, N0, M0-Stage 1A - s/p lumpectomy 06/2014, radiation therapy - On Anastrazole since 07/2014 7. History of cholecystectomy 8. History of total knee arthroplasty - R knee 9. Peripheral vascular disease - s/p stenting Femoral artery, 2008 10. Sleep Apnea ([facility] [id number]) 11. Benign essential hypertension 12. 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 Atrial fibrillation 15. Long-term current use of anticoagulant Review of Systems: 10 point ROS including constitutional, eyes, respiratory, cardiovascular, pulmonary, gastroenterology, genitourinary, integumentary, musculoskeletal, pschiatric were all negative except for pertinent positive noted in my HPI. Physical Exams: Vitals: BP: 151/78 P: 67 (11/14/2023 09:43) R: 16 (11/14/2023 09:43) T: 97.8 F [36.6 C] (08/09/2023 10:51) WT: 157.8 lb [71.58 kg] (11/14/2023 09:43) O2 Sat: 98% (11/14/2023 09:43) BMI: 29.9 BMI > 25 Assessment General: Pleasant female, in NAD Resp: non-labored breathing CV: Well-perfused Neuro: AOX3, no focal deficits Mini-co word recall: 3/3 Clock test: [place] of clock and hands largely correct; wrote 13 and 14 for the numbers, then changed 3 to 5; did not write numbers 4, 5, 7, 8. Assessment/Plan: The patient is a 88 yo FEMALE who comes in for follow up visit today. #. Cognitive concerns. -Will have pt see [facility] for mental status eval -Consider neuropsych referral. #. HTN. -Will have PACT RN call Home health RN to get most recent BPs. Also see if home health nurse can come weekly. Will f/u after neuropsych testing complete. 45 min spent on evaluation, including evaluation/discussion with pt, coordination of care, and discussion with pt's son, Aman. Natalia Sales MD Staff Physician Section of Women's Health /baltazar/ Natalia Sales MD STAFF PHYSICIAN Signed: 11/14/2023 11:02 11/14/2023 ADDENDUM STATUS: COMPLETED Pt is starting to experience some cognitive decline. Son, Aman, has questions about what resources may be available to her. Release is in chart. HIs number is [phone]. Thx. /baltazar/ Natalia Sales MD STAFF PHYSICIAN Signed: 11/14/2023 11:10 Receipt Acknowledged By: 11/14/2023 14:11 /baltazar/ IMANI CRAFT MODELER SURVEYOR MINE, MODELER 11/14/2023 ADDENDUM STATUS: COMPLETED RN attempted phone call to Edyta HC RN Voicemail left asking HC RN to return call. Direct number provided for call back. /baltazar/ MICKI JAIN REGISTERED NURSE Signed: 11/14/2023 11:32 11/15/2023 ADDENDUM STATUS: UNSIGNED You may not VIEW this UNSIGNED Addendum. NATALIA TREJO [facility] Nov 14, 2023 10:22 AM [facility] OUTP [facility] E & M NOTE: LOCAL TITLE: WOMEN'S CLINIC NOTE STANDARD TITLE: [facility] OUTPATIENT E & M NOTE DATE OF NOTE: NOV 14, 2023@10:22 ENTRY DATE: NOV 14, 2023@10:22:52 AUTHOR: WEI TREJO EXP COSIGNER: URGENCY: STATUS: COMPLETED [facility]OMEN[facility]S CLINIC NOTE Has ADDENDA Nurse's Notes Reviewed. Chief Complaint: f/u S: The patient is a 88 yo FEMALE who comes in today for f/u Will eat a grain cereal with breakfast. Has problems with an explosive bowel movement. This does not happen when she doesn't have the grain cereal. Also, someone came and lined up her box of medications. Also wonders if she should be spreading out her meds as opposed to taking them before breakfast. Takes metoprolol in the evning. Has home health nurse-Iveth...has missed a few appts b/c no one has answered the door. Does need to have hearing aids in to hear. Had to help with the manor this year and also didn't do her taxes this year. Also haven't found the 1099 forms that were sent. Pt's son, Aman, is here with her today. They have been noticing some cognitive changes at home. This is the first year she's had problems with her taxes. Pays the manor monthly, which covers most expenses. Aman is joint on her checking account, so can see what is going on. Past medical history/Active Problems: Active Problems: Active [...] - 2011 4. Polymyalgia rheumatica 5. Prediabetes ([facility] [id number]) 6. 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 - pT1c, N0, M0-Stage 1A - s/p lumpectomy 06/2014, radiation therapy - On Anastrazole since 07/2014 7. History of cholecystectomy 8. History of total knee arthroplasty - R knee 9. Peripheral vascular disease - s/p stenting Femoral artery, 2008 10. Sleep Apnea ([facility] [id number]) 11. Benign essential hypertension 12. 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 Atrial fibrillation 15. Long-term current use of anticoagulant Review of Systems: 10 point ROS including constitutional, eyes, respiratory, cardiovascular, pulmonary, gastroenterology, genitourinary, integumentary, musculoskeletal, pschiatric were all negative except for pertinent positive noted in my HPI. Physical Exams: Vitals: BP: 151/78 P: 67 (11/14/2023 09:43) R: 16 (11/14/2023 09:43) T: 97.8 F [36.6 C] (08/09/2023 10:51) WT: 157.8 lb [71.58 kg] (11/14/2023 09:43) O2 Sat: 98% (11/14/2023 09:43) BMI: 29.9 BMI > 25 Assessment General: Pleasant female, in NAD Resp: non-labored breathing CV: Well-perfused Neuro: AOX3, no focal deficits Mini-co word recall: 3/3 Clock test: [place] of clock and hands largely correct; wrote 13 and 14 for the numbers, then changed 3 to 5; did not write numbers 4, 5, 7, 8. Assessment/Plan: The patient is a 88 yo FEMALE who comes in for follow up visit today. #. Cognitive concerns. -Will have pt see Yaima for mental status eval -Consider neuropsych referral. #. HTN. -Will have PACT RN call Home health RN to get most recent BPs. Also see if home health nurse can come weekly. Will f/u after neuropsych testing complete. 45 min spent on evaluation, including evaluation/discussion with pt, coordination of care, and discussion with pt's son, Aman. Natalia Sales MD Staff Physician Section of Women's Health /baltazar/ Natalia Sales MD STAFF PHYSICIAN Signed: 11/14/2023 11:02 11/14/2023 ADDENDUM STATUS: COMPLETED Please call pt's home health nurse, Iveth, to see if we can get pt's most recent BPs at home. also, can you check the frequency of which pt has visits? Would benefit from visits at a set time every week given cognitive concerns. /baltazar/ Natalia Sales MD STAFF PHYSICIAN Signed: 11/14/2023 11:03 Receipt Acknowledged By: 11/15/2023 15:07 /es/ MICKI JAIN REGISTERED NURSE 11/14/2023 ADDENDUM STATUS: COMPLETED Pt is starting to experience some cognitive decline. Son, Aman, has questions about what resources may be available to her. Release is in chart. HIs number is [phone]. Thx. /baltazar/ Natalia Sales MD STAFF PHYSICIAN Signed: 11/14/2023 11:10 Receipt Acknowledged By: 11/14/2023 14:11 /es/ IMANI CRAFT [facility] SURVEYOR MINE, MODELER 11/14/2023 ADDENDUM STATUS: COMPLETED RN attempted phone call to ASAEL Lan RN Voicemail left asking HC RN to return call. Direct number provided for call back. /baltazar/ MICKI JAIN REGISTERED NURSE Signed: 11/14/2023 11:32 11/15/2023 ADDENDUM STATUS: COMPLETED RN spoke to HC Consuelo COLLIER via phone. Consuelo is at [facility] every other week, on AM. Consuelo has been providing care since August. Upcoming visit is always written on [facility] calendar and son is also informed. Consuelo does note that she has observed signs of confusion in vet but these have been present as long as she has been caregiving. Examples given are vet not knowing who HC RN is depsite repeat visits. Vet will also mix up meds after HC RN has left. HC RN reports the following home BP readings 11/09 164/87 10/24 180/80 10/12 155/74 /baltazar/ MICKI JAIN REGISTERED NURSE Signed: 11/15/2023 15:11 Receipt Acknowledged By: 11/15/2023 16:34 /talat Sales MD STAFF PHYSICIAN 11/15/2023 ADDENDUM STATUS: COMPLETED Can we increase visits to weekly? BP is not at goal. Adding 25mg spironolactone daily (to be taken in AM). Please update pt and home health nurse. Please check in on BPs in 1 month. This can be with HHN. Also, please have pt get BMP (ordered) checked on 12/18 when here for neurology appt. May be helpful to also commmunicate this with pt's son, Aman. Thanks! /talat Sales MD STAFF PHYSICIAN Signed: 11/15/2023 16:37 Receipt Acknowledged By: 11/18/2023 08:37 /baltazar/ MICKI JAIN REGISTERED NURSE 11/17/2023 ADDENDUM STATUS: COMPLETED RN updated Aman VM to HC RN /baltazar/ MICKI JAIN REGISTERED NURSE Signed: 11/17/2023 08:48 11/18/2023 ADDENDUM STATUS: COMPLETED RN spoke with HC RN visits will increase to weekly HC RN informed of med change HC RN will call PACT RN after obtaining 1 month of home BP readings HC RN is requesting locked med box as vet has history or rearranging med set ups after RN leaves /baltazar/ MICKI JAIN REGISTERED NURSE Signed: 11/18/2023 08:38 Receipt Acknowledged By: * AWAITING SIGNATURE * NATALIA TREJO * AWAITING SIGNATURE * MIC PLASCENCIA 11/18/2023 ADDENDUM STATUS: GRIFFIN newton also informed of the above /baltazar/ MICKI JAIN REGISTERED NURSE Signed: 11/18/2023 08:39 NATALIA TREJO [facility] Nov 14, 2023 09:48 AM [facility] NOTE: LOCAL TITLE: [facility]S [facility]INIC NURSING NOTE STANDARD TITLE: [facility] DATE OF NOTE: NOV 14, 2023@09:48 ENTRY DATE: NOV 14, 2023@09:48:25 AUTHOR: KADY ESCOBAR EXP COSIGNER: URGENCY: STATUS: COMPLETED TYPE OF VISIT: Appointment Check In Type of appointment: In-person appointment REASON FOR VISIT: follow up, ALLERGIES: Patient has answered NKA VITAL SIGNS: Blood Pressure: 178/75 (11/14/2023 09:43) rechecked BP 151/78 patient is asymptomatic. patient did take her bp meds this am. Pulse: 67 (11/14/2023 09:43) Respiration: 16 (11/14/2023 09:43) Temperature: 97.8 F [36.6 C] (08/09/2023 10:51) Weight: 157.8 lb [71.58 kg] (11/14/2023 09:43) Height: 61 in [154.9 cm] (11/14/2023 09:43) BMI: 29.9 O2 Sat: 98% (11/14/2023 09:43) Pain: 0 (11/14/2023 09:43) PAIN SCREEN: Patient is not having significant pain that they wish to discuss with their provider today. MEDICATION Over the Counter/Herbal Medications: The patient denies taking any outside medications or herbals. Alcohol Use Screen (AUDIT-C): Alcohol Screen: SCREEN FOR ALCOHOL (AUDIT-C) An alcohol screening test (AUDIT-C) was negative (score=2). 1. How often did you have a drink containing alcohol in the past year? Consider a drink to be a 12 ounce can or bottle of regular beer, 8 ounces of malt liquor, a 5 ounce glass of table wine, or a 1.5 ounce shot of liquor (like scotch, gin, or vodka). Monthly or less 2. How many drinks containing alcohol did you have on a typical day when you were drinking in the past year? One or two drinks 3. How often did you have 4 or more drinks on one occasion in the past year? Less than monthly COVID-19 Immunization: Refused Pfizer Monovalent COVID-19 vaccine Immunization: COVID-19 (PFIZER), MRNA, LNP-S, PF, LORENE-SUCROSE, 30 MCG/0.3 ML (AGES 12+ YEARS) Refusal Reason: PATIENT DECISION Patient refuses all immunization(s) in the COVID-19 group Date Documented: 11/14/23 09:52 /baltazar/ KADY ESCOBAR CLAIM APPROVER Signed: 11/14/2023 09:52 KADY ESCOBAR [facility]
--- OUTSIDE RECORDS SUMMARY | 2024-02-24 00:23 | XMS_ITS | Encounter Summary ---
Author Name [facility] [place] [facility] [facility] [place] Address [address] [place] [address] Care Team Providers Care Travel Sales Consultant Name Role Phone NATALIA TREJO Primary Care [...] to Policy Talavera [facility] ([id number]) PRESCRIPT ION GEHA May 30, 2005 [id number] [phone] SONIA MOBLEY PATIENT GEHA (SECONDARY ) PREFERRED PROVIDER ORGANIZAT ION (PPO) GEHA A/B PRIMA RY May 30, 2005 [id number] SONIA MOBLEY PATIENT [facility] (SECONDARY ) PREFERRED PROVIDER ORGANIZAT ION (PPO) GEHA A&B PRIMA RY May 30, 2005 [id number] SONIA MOBLEY PATIENT [facility] PREFERRED PROVIDER ORGANIZAT ION (PPO) DO NOT USE May 30, 2005 [id number] ALISHATONI May PATIENT MEDICARE (WNR) MEDICARE (M) PART A Jan 29, 2000 PART A [id number] [phone] SONIA MOBLEY REINADEJUAN PATIENT MEDICARE (WNR) MEDICARE (M) PART B Jan 29, 2000 PART B [id number] [phone] SONIA MOBLEY LUCINAHEMALATHA PATIENT Selected Encounter This section includes the information on record at [place] for the Encounter. Date/Time Encounter Type Encounter Description Reason Pro vider Source Dec 19, 2023 04:11 PM Outpatient Encounter COMP [facility] Encounter Template Text not used by [place] Plan of Treatment: Future Appointments (+ 6 months) and Future Tests (+/- 45 days) The Plan of Treatment section includes future care activities for the patient from [facility] [place] [facility] This section includes future appointments and future orders which are active, pending or scheduled. Future Appointments This section includes appointments that were scheduled to occur 6 months from the date of the Encounter, up to a maximum of 20 appointments. The data comes from all [facility]. Appointment Date/Time Appointment Type Appointme nt Facility Name Dec 22, 2023 08:30 AM AMBULATORY - [facility]RY [facility] Jan 12, 2024 12:30 PM AMBULATORY - SURGERY [facility] Mar 06, 2024 09:00 AM AMBULATORY - NONE [facility] Mar 06, 2024 10:00 AM [facility] Mar 08, 2024 08:00 AM AMBULATORY - NONE [facility] Mar 27, 2024 10:30 AM AMBULATORY - REHAB MEDICIN E [facility] May 14, 2024 09:20 AM AMBULATORY - SURGERY [facility] Active, Pending, and Scheduled Orders This section includes a listing of several types of active, pending, and scheduled orders, including clinic medications orders, diagnostic test orders, procedure orders and consult orders; where the start date of the order is 45 days before the date of the Encounter or 45 days after the date of theEncounter. The data comes from all [facility]. Test Date/Time Test Type Test Details Facility Name Dec 19, 2023 12:00 AM Laboratory - Chemi stry Order BASIC METABOLIC PANEL+MG PLASMA SP ONCE [facility] Vital Signs: All taken on the encounter date This section contains inpatient and outpatient Vital Signs collected on the date of the Encounter. Date/Time Temperature Pulse Blood Pressure Respiratory Rate SP02 Pain Height Weight Body Mass Index Source Dec 19, 2023 09:00 AM 98.1 66 154/82 18 97 0 [place] [facility] Social History: Smoking Status (Most [...] 12, 2023 10:30 AM [place]-TOBACCO NEVER USED [facility] Tobacco Use History This section includes a history of the smoking, or tobacco-related health factors, that were collected on or before the date of the Encounter. The data comes from the [place] facility where the Encounter took place. Date/Time Smoking Status/Tobacco Use Comment F acility October 18, 2022 10:00 AM [facility]-TOBACCO NEVER USED [facility] September 28, 2021 09:30 AM VA-TOBACCO NEVER USED [facility] Nov 10, 2020 08:30 AM VA-TOBACCO NEVER USED [facility] Encounter Notes: All associated encounter notes This section contains the clinical notes associated to the Encounter. Date/Time Encounter Note(s) Provider Source Dec 19, 2023 04:15 PM ADDENDUM: LOCAL TITLE: Addendum STANDARD TITLE: ADDENDUM DATE OF NOTE: DEC 19, 2023@16:15:43 ENTRY DATE: DEC 19, 2023@16:15:44 AUTHOR: WEI TREJO EXP COSIGNER: URGENCY: STATUS: COMPLETED Increase metoprolol to 50mg BID. I would like pt to work with PACT PharmD to get BP back into control. Continue weekly checks with home health RN. /baltazar/ Natalia Sales MD STAFF PHYSICIAN Signed: 12/19/2023 16:19 Receipt Acknowledged By: 12/20/2023 10:26 /baltazar/ MICKI JAIN REGISTERED NURSE 12/20/2023 08:23 /baltazar/ MIC PLASCENCIA, PharmD, BCPP, NCMP Clinical Pharmacist Practitioner ====== --- Original Document --- 12/19/23 [facility] NURSING NOTE: BP review fender finisher called in with the following BP readings 11/23 148/81 7/5 150/77 7 118/73 7 [id number] /baltazar/ MICKI JAIN REGISTERED NURSE Signed: 12/19/2023 16:11 Receipt Acknowledged By: 12/19/2023 16:15 /talat Sales MD STAFF PHYSICIAN 12/20/2023 ADDENDUM STATUS: COMPLETED VM left informing HCRN of the above. Edyta [phone] /talat JAIN REGISTERED NURSE Signed: 12/20/2023 10:26 NATALIA TREJO [facility] Dec 19, 2023 04:11 PM [facility] NOTE: LOCAL TITLE: [facility] NURSING NOTE STANDARD TITLE: [facility] DATE OF NOTE: DEC 19, 2023@16:11 ENTRY DATE: DEC 19, 2023@16:11:07 AUTHOR: MICKI JAIN EXP COSIGNER: URGENCY: STATUS: COMPLETED [facility] CLINIC NURSING NOTE Has ADDENDA BP review fender finisher called in with the following BP readings 11/23 148/81 7/5 150/77 12/07 11873 12/14 166 /talat JAIN REGISTERED NURSE Signed: 12/19/2023 16:11 Receipt Acknowledged By: 12/19/2023 16:15 /talat Sales MD STAFF PHYSICIAN 12/19/2023 ADDENDUM STATUS: COMPLETED Increase metoprolol to 50mg BID. I would like pt to work with PACT PharmD to get BP back into control. Continue weekly checks with home health RN. /talat Sales MD STAFF PHYSICIAN Signed: 12/19/2023 16:19 Receipt Acknowledged By: 12/20/2023 10:26 /es/ MICKI JAIN REGISTERED NURSE 12/20/2023 08:23 /es/ MIC PLASCENCIA, PharmD, BCPP, [facility] Clinical Pharmacist Practitioner 12/20/2023 ADDENDUM STATUS: COMPLETED VM left informing HCRN of the above. Edyta [phone] /baltazar/ MICKI JAIN REGISTERED NURSE Signed: 12/20/2023 10:26 MICKI JAIN [facility]
--- OUTSIDE RECORDS SUMMARY | 2024-02-24 00:24 | XMS_ITS | Encounter Summary ---
Author Name [facility] [place] [facility] [place] Address [address] [place] [address] Care Team Providers Care Fire Alarm Inspector Name Role Phone DOMINIC TREJO Primary Care [...] Name Patient's Relationship to Policy Talavera [facility] ([id number]) PRESCRIPT ION GEHA May [birth year] 2005 [id number] [phone] SONIA MOBLEY PATIENT GEHA (SECONDARY ) PREFERRED PROVIDER ORGANIZAT ION (PPO) GEHA A&B PRIMA RY May 30, 2005 [id number] SONIA MOBLEY PATIENT GEHA (SECONDARY ) PREFERRED PROVIDER ORGANIZAT ION (PPO) GEHA A/B PRIMA RY May 30, 2005 [id number] SONIA MOBLEY PATIENT [facility] PREFERRED PROVIDER ORGANIZAT ION (PPO) DO NOT USE May 30, 2005 [id number] JENNIFERNOREEN TONI May PATIENT MEDICARE (WNR) MEDICARE (M) PART B Jan 29, 2000 PART B [id number] [phone] SONIA MOBLEY PATIENT MEDICARE (WNR) MEDICARE (M) PART A Jan 29, 2000 PART A [id number] [phone] ITZSONIA REINADEJUAN PATIENT Selected Encounter This section includes the information on record at [place] for the Encounter. Date/Time Encounter Type Encounter Description Reason Provider Source Jan 12, 2024 12:30 PM HEARING AID REPAIR/MODIFYIN G AUDIOLOGY ICD-10-CM H90.3 Sensorineural hearing loss, bilateral ANNIKA BURDICK Encounter Template Text not used by [place] Assessments - Encounter Diagnoses This section includes the primary and secondary diagnoses documented for the Encounter. Date/Time Primary/Secondary Diagnosis Diagnosis Name Provider Source Jan 20, 2024 04:02 PM PRIMARY Sensorineural hearing loss, bilateral OCTAVIO DREW [facility] Jan 20, 2024 04:02 PM SECONDARY Encounter for fitting and adjustment of hearing aid OCTAVIO DREW [facility] Plan of Treatment: Future Appointments (+ 6 months) and Future Tests (+/- 45 days) The Plan of Treatment section includes future care activities for the patient [facility] [place] [facility] This section includes future appointments and future orders which are active, pending or scheduled. Future Appointments This section includes appointments that were scheduled to occur 6 months from the date of the Encounter, up to a maximum of 20 appointments. The data comes from all [place] treatment facilities. Appointment Date/Time Appointment Type Appointme nt Facility Name Mar 06, 2024 09:00 AM AMBULATORY - NONE [facility] Mar 06, 2024 10:00 AM [facility]INE [facility] Mar 08, 2024 08:00 AM AMBULATORY - NONE [facility] Mar 27, 2024 10:30 AM AMBULATORY - REHAB MEDICIN E [facility] May 14, 2024 09:20 AM AMBULATORY - SURGERY [facility] Active, Pending, and Scheduled Orders This section includes a listing of several types of active, pending, and scheduled orders, including clinic medications orders, diagnostic test orders, procedure orders and consult orders; where the start date of the order is 45 days before the date of the Encounter or 45 days after the date of theEncounter. The data comes from all [place] treatment facilities. Test Date/Time Test Type Test Details Facility Name Dec 19, 2023 12:00 AM Laboratory - Chemi stry Order BASIC METABOLIC PANEL+MG PLASMA SP ONCE [facility] Feb 14, 2024 02:03 PM Consult Order [facility] Cons Advertising Layout Worker's Choice [facility] Social History: Smoking Status (Most current) and Tobacco Use (All prior to encounter date) This section includes the most current, and the historical, smoking and tobacco- related health factors from the [place] facility where the Encounter took place. Current Smoking Status This section includes the most current smoking, or tobacco-related health factor, from the [facility] where the Encounter took place. Date/Time Current Smoking Status Comment Facil ity Sep 12, 2023 10:30 AM VA-TOBACCO NEVER USED [facility] Tobacco Use History This section includes a history of the smoking, or tobacco-related health factors, that were collected on or before the date of the Encounter. The data comes from the [place] facility where the Encounter took place. Date/Time Smoking Status/Tobacco Use Comment F acility October 18, 2022 10:00 AM VA-TOBACCO NEVER USED [facility] September 28, 2021 09:30 AM VA-TOBACCO NEVER USED [facility] Nov 10, 2020 08:30 AM VA-TOBACCO NEVER USED [facility] Encounter Notes: All associated encounter notes This section contains the clinical notes associated to the Encounter. Date/Time Encounter Note(s) Provider Source Jan 20, 2024 03:58 PM AUDIOLOGY NOTE: LOCAL TITLE: AUDIOLOGY CLINIC NOTE STANDARD TITLE: AUDIOLOGY NOTE DATE OF NOTE: JAN 20, 2024@15:58 ENTRY DATE: JAN 20, 2024@15:58:10 AUTHOR: OLIVIA DREW COSIGNER: HUSSAIN BURDICK URGENCY: STATUS: COMPLETED DIAGNOSIS Encounter for fitting and Adjustment of Hearing Aids Sensorineural Hearing Loss, Bilateral Reason for Visit: Hearing Aid Service Location of Visit(Room Number):2S-109 [place] was seen for Hearing Aid Service/Repair: 30 minute Appointment Otoscopy: Free of Excessive Cerumen, Normal anatomy bilaterally DIAGNOSIS History: Patient seen for a hearing aid service/hearing aid check Make:RESOUND Model: RESOUND ONE 61 MINI FRED-R Serial Number:[id number] Dome/Mold:CUSTOM EARMOLDS The following Hearing aid problem(s) were presented Right Hearing Aid:CLEAN AND CHECK Left Hearing Aid:SAME ABOVE Action: Hearing Aids were cleaned and checked. A listening check revealed good sound quality: REPLACED WAX GUARDS AND CLEANED EARMOLDS [place] was counseled using a curriculum on the cleaning,care and use of hearing aids. Plan: Vet will contact call center as needed for follow up Patient is in agreement with this plan. External Auditor: /baltazar/ OLIVIA DREW AUDIO TECH Signed: 01/20/2024 16:02 /baltazar/ Cooper Browning, JEANNA-A Carbon Cutter Cosigned: 01/20/2024 16:42 OLIVIA DREW [facility]
--- OUTSIDE RECORDS SUMMARY | 2024-02-24 00:24 | XMS_ITS | Clinical Summary ---
Author Organization [email or web address] [facility] Address [place], [place] [address] Care Team Providers Care Payer Specialist Name Role Phone Natalia Jameson MD Primary [...] Encounters Date Type Department Care Team Description 02/23/2024 Lab Requisition [facility] [phone] Rocio Vazquez NP 12/26/2023 Telephone [facility] [address] [place] [address] Andrew Trevino AuD Hearing Aid 12/20/2023 Telephone [facility] [address] [place] [address] Andrew Trevino AuD Hearing Aid (CAN'T HEAR WITH HEARING AIDS) 11/28/2023 Telephone [facility] [address] [place] [address] Olinda Finch AuD Hearing Aid from Last [...] T Respiratory Rate 16 07/07/2020 3:42 PM ENGINE SPECIALIST Oxygen Saturation 98% 11/05/2021 2:59 PM CDT Inhaled Oxygen Concentration - - Weight 72.3 kg (159 lb 8 oz) 11/05/2021 2:59 PM CDT Height 162.6 cm (5' 4) 07/06/2020 1:06 AM ENGINE SPECIALIST Body Mass Index 27.38 07/06/2020 1:06 AM ENGINE SPECIALIST Plan of Treatment Health Maintenance Due Date Last Done Comments Tdap 1946 Depression screening for age 12+ 1947 BMI (ht and wt on same day) for age 18+ 1953 Tetanus booster 1955 Zoster (shingles) series for age 50+ (1 of 2) 1985 Medicare Wellness for age 65+ 02/14/2000 Pneumococcal series for age 65+ (1 of 1 - PCV) 02/14/2000 RSV vaccine for adults or (1 - 1-dose 75+ series) 2010 COVID-19 vaccine series ( season) 2024 03/03/2023, 06/29/2022, 04/01/2022, Additional history [...] Patients: Results are automatically released to your [employer] ([employer]) account once available, in compliance with federal regulations. This means that you may see your results before your provider has had a chance to review them. Please allow 2-3 business days for your provider to comment on the results. XR DXA Bone Mineral Density (BMD) EXAM LOCATION: [address] [id number] PATIENT NAME: Yariel Gutierres DATE OF : [...] two scanners are made by the same hoof trimmer. PROCEDURE: Dual-energy x-ray absorptiometry performed with routine [...] Comments Code Status Discussion: Discussed Care Teams Payer Specialist Relationship Specialty Start Date End [place] [address] PCP - General 11/05/21
--- OUTSIDE RECORDS SUMMARY | 2024-02-24 00:24 | XMS_ITS | Encounter Summary ---
Author Name [facility] [place] [facility] [place] Address [address] [place] [address] Care Team Providers Care Senior Reactor Operator Name Role Phone DOMINIC TREJO Primary [...] Relationship to Policy Talavera [facility] ([id number]) PRESCRIPT ION GEHA May 30, 2005 [id number] [id number] SONIA MOBLEY PATIENT GEHA (SECONDARY ) PREFERRED PROVIDER ORGANIZAT ION (PPO) GEHA A&B PRIMA RY May 30, 2005 [id number] SONIA MOBLEY PATIENT GEHA (SECONDARY ) PREFERRED PROVIDER ORGANIZAT ION (PPO) GEHA A/B PRIMA RY May 30, 2005 [id number] 8GEHA SONIA MOBLEY PATIENT [facility] PREFERRED PROVIDER ORGANIZAT ION (PPO) DO NOT USE May 30, 2005 [id number] ALISHATONI May PATIENT MEDICARE (WNR) MEDICARE (M) PART B Jan 29, 2000 PART B [id number] [phone] SONIA MOBLEY REINADEJUAN PATIENT MEDICARE (WNR) MEDICARE (M) PART A Jan 29, 2000 PART A [id number] [phone] SONIA MOBLEY PATIENT Selected Encounter This section includes the information on record at [place] for the Encounter. Date/Time Encounter Type Encounter Description Reason Provider Source Feb 20, 2024 01:38 PM Outpatient Encounter COMP [facility] IMANI CRAFT Encounter Template Text not used by [place] Plan of Treatment: Future Appointments (+ 6 months) and Future Tests (+/- 45 days) The Plan of Treatment section includes future care activities for the patient from all [place] treatmentfacilities. This section includes future appointments and future orders which are active, pending or scheduled. Future Appointments This section includes appointments that were scheduled to occur 6 months from the date of the Encounter, up to a maximum of 20 appointments. The data comes from all [facility]. Appointment Date/Time Appointment Type Appointme nt Facility Name Mar 06, 2024 09:00 AM AMBULATORY - NONE [facility] Mar 06, 2024 10:00 AM AMBULATORY - MEDICINE [facility] Mar 08, 2024 08:00 AM AMBULATORY - NONE [facility] Mar 27, 2024 10:30 AM AMBULATORY - REHAB MEDICIN E [facility] May 14, 2024 09:20 AM AMBULATORY - SURGERY [facility] Active, Pending, and Scheduled Orders This section includes a listing of several types of active, pending, and scheduled orders, including clinic medications orders, diagnostic test orders, procedure orders and consult orders; where the start date of the order is 45 days before the date of the Encounter or 45 days after the date of theEncounter. The data comes from all [facility]. Test Date/Time Test Type Test Details Facility Name Feb 14, 2024 02:03 PM Consult Order [facility] Cons Automobile Mechanic Supervisor's Choice [facility] Mar 10, 2024 12:00 AM Laboratory - Chemi stry Order BASIC METABOLIC PANEL+MG PLASMA SP [facility] Mar 10, 2024 12:00 AM Laboratory - Chemi stry Order TSH W/REFLEX TO FREE T4 PLASMA SP ONCE [facility] Mar 10, 2024 12:00 AM Laboratory - Chemi stry Order CBC BLOOD SP [facility] Mar 10, 2024 12:00 AM Laboratory - Chemi stry Order HEMOGLOBIN A1C BLOOD SP [facility] Mar 10, 2024 12:00 AM Laboratory - Chemi stry Order LIPID PANEL,NON-FASTING PLASMA SP [facility] Social History: Smoking Status (Most current) and Tobacco Use (All prior to encounter date) This section includes the most current, and the historical, smoking and tobacco- related health factors from the [facility] where the Encounter took place. Current Smoking Status This section includes the most current smoking, or tobacco-related health factor, from the [facility] where the Encounter took place. Date/Time Current Smoking Status Comment Facil ity Sep 12, 2023 10:30 AM [place]-TOBACCO NEVER USED [facility] Tobacco Use History This section includes a history of the smoking, or tobacco-related health factors, that were collected on or before the date of the Encounter. The data comes from the [place] facility where the Encounter took place. Date/Time Smoking Status/Tobacco Use Comment F acility October 18, 2022 10:00 AM VA-TOBACCO NEVER USED [facility] September 28, 2021 09:30 AM VA-TOBACCO NEVER USED [facility] Nov 10, 2020 08:30 AM VA-TOBACCO NEVER USED [facility] Encounter Notes: All associated encounter notes This section contains the clinical notes associated to the Encounter. Date/Time Encounter Note(s) Provider Source Feb 20, 2024 01:38 PM SOCIAL WORK RISK A SSESSMENT SCREENING NOTE: LOCAL TITLE: SOCIAL WORK TRIAGE ASSESSMENT STANDARD TITLE: SOCIAL WORK RISK ASSESSMENT SCREENING NOTE DATE OF NOTE: FEB 20, 2024@13:38 ENTRY DATE: FEB 20, 2024@13:38:33 AUTHOR: IMANI CRAFT COSIGNER: URGENCY: STATUS: COMPLETED SOCIAL WORK TRIAGE ASSESSMENT Referral source: Family Presenting issues: Aman called to talk further about services and resources for Gilman that were discussed in November 2023. Summary, Social Work Interventions and Plan: F/u call placed to Aman (ph: [phone]), he relayed things have changed a lot since he left teletypewriter installer the voicemail on the . Gilman fell and broke her patella and is moving into [facility] in [place]. He was unable to speak further at the time of this call, requested to call teletypewriter installer back to provide a full update and talk further. SW will await his f/u. /baltazar/ ROSAURA LEVY DIRECTOR SPECIALTY, ROSAURA Signed: 02/20/2024 14:03 IMANI CRAFT [facility]
--- OUTSIDE RECORDS SUMMARY | 2024-02-24 00:24 | XMS_ITS | Encounter Summary ---
Author Name [facility] [place] Address [address] [place] [address] Care Team Providers Care Security Alarm Technician Name Role Phone DOMINIC TREJO Primary Care [...] Talavera's Name Patient's Relationship to Policy Talavera [facility] ([id number]) PRESCRIPT ION GEHA May 30, 2005 [id number] [phone] SONIA MOBLEY PATIENT GEHA (SECONDARY ) PREFERRED PROVIDER ORGANIZAT ION (PPO) GEHA A/B PRIMA RY May 30, 2005 [id number] SONIA MOBLEY PATIENT GEHA (SECONDARY ) PREFERRED PROVIDER ORGANIZAT ION (PPO) GEHA A&B PRIMA RY May 30, 2005 [id number] [phone] SONIA MOBLEY PATIENT [facility] PREFERRED PROVIDER ORGANIZAT ION (PPO) DO NOT USE May 30, 2005 [id number] ALISHACARMENCITAANDREA Olvera PATIENT MEDICARE (WNR) MEDICARE (M) PART A Jan 29, 2000 PART A [id number] [phone] ITZSONIA REINADEJUAN PATIENT MEDICARE (WNR) MEDICARE (M) PART B Jan 29, 2000 PART B [id number] [phone] SONIA MOBLEY LUCINAHEMALATHA PATIENT Selected Encounter This section includes the information on record at [place] for the Encounter. Date/Time Encounter Type Encounter Description Reason Pro vider Source Feb 21, 2024 11:45 AM Outpatient Encounter TELEPHONE/ANCILLARY IHE Encounter Template Text not used by [place] Plan of Treatment: Future Appointments (+ 6 months) and Future Tests (+/- 45 days) The Plan of Treatment section includes future care activities for the patient from all [place] treatmentfacilities. This section includes future appointments and future orders which are active, pending or scheduled. Future Appointments This section includes appointments that were scheduled to occur 6 months from the date of the Encounter, up to a maximum of 20 appointments. The data comes from all [facility]. Appointment Date/Time Appointment Type Appointme nt Facility Name Mar 06, 2024 09:00 AM AMBULATORY - NONE [facility] Mar 06, 2024 10:00 AM AMBULATORY - MEDICINE [facility] Mar 08, 2024 08:00 AM AMBULATORY - NONE [facility] Mar 27, 2024 10:30 AM AMBULATORY - REHAB MEDICIN E [facility] May 14, 2024 09:20 AM AMBULATORY - SURGERY [facility] Active, Pending, and Scheduled Orders This section includes a listing of several types of active, pending, and scheduled orders, including clinic medications orders, diagnostic test orders, procedure orders and consult orders; where the start date of the order is 45 days before the date of the Encounter or 45 days after the date of theEncounter. The data comes from all [facility]. Test Date/Time Test Type Test Details Facility Name Feb 14, 2024 02:03 PM Consult Order [facility] CARE Cons Tank Car Repairer's Choice [facility] Mar 10, 2024 12:00 AM Laboratory - Chemi stry Order HEMOGLOBIN A1C BLOOD SP [facility] Mar 10, 2024 12:00 AM Laboratory - Chemi stry Order BASIC METABOLIC PANEL+MG PLASMA SP [facility] Mar 10, 2024 12:00 AM Laboratory - Chemi stry Order LIPID PANEL,NON-FASTING PLASMA SP [facility] Mar 10, 2024 12:00 AM Laboratory - Chemi stry Order TSH W/REFLEX TO FREE T4 PLASMA SP ONCE [facility] Mar 10, 2024 12:00 AM Laboratory - Chemi stry Order CBC BLOOD SP [facility] Social History: Smoking Status (Most current) and Tobacco Use (All prior to encounter date) This section includes the most current, and the historical, smoking and tobacco- related health factors from the [facility] where the Encounter took place. Current Smoking Status This section includes the most current smoking, or tobacco-related health factor, from the [place] facility where the Encounter took place. Date/Time Current Smoking Status Comment Facil ity Sep 12, 2023 10:30 AM VA-TOBACCO NEVER USED [facility] Tobacco Use History This section includes a history of the smoking, or tobacco-related health factors, that were collected on or before the date of the Encounter. The data comes from the [place] facility where the Encounter took place. Date/Time Smoking Status/Tobacco Use Comment F acility October 18, 2022 10:00 AM VA-TOBACCO NEVER USED [facility] September 28, 2021 09:30 AM VA-TOBACCO NEVER USED [facility] Nov 10, 2020 08:30 AM VA-TOBACCO NEVER USED [facility] Encounter Notes: All associated encounter notes This section contains the clinical notes associated to the Encounter. Date/Time Encounter Note(s) Provider Source Feb 21, 2024 11:45 AM COMMUNITY DETENTION CARE NOTE: LOCAL TITLE: [facility] ELIGIBILITY STANDARD TITLE: COMMUNITY DETENTION CARE NOTE DATE OF NOTE: FEB 21, 2024@11:45 ENTRY DATE: FEB 21, 2024@11:45:55 AUTHOR: CLYDE BLAKE EXP COSIGNER: URGENCY: STATUS: COMPLETED Contract Alf Eligibility Screen Community Alf (CNH) Eligibility Screen: This note provides review of veterans current administrative eligibility for a CNH authorization. CNH program does not follow veterans unless they have an active CNH authorization. In addition to administrative eligibility, Veterans must have a clinical need for [place] level of care. Referral Source/Location: [facility] Home: Contract Alf: Yes Contact: Ally Phone Number: [place] is administratively eligible for the Community Alf Program for: Hospice: [place] is eligible for [place] paid [place] care if they enroll in hospice. /baltazar/ ROSAURA NAVA LATHMAKER ROSAURA Signed: 02/21/2024 11:46 CLYDE BLAKE [facility]
--- OUTSIDE RECORDS SUMMARY | 2024-02-24 00:25 | XMS_ITS | Encounter Summary ---
Author Organization [facility] Address [address] [place] [address] Care Team Providers Care Subassemblies Wirer Name Role Phone Unavailable Primary Care Provider Unavailabl e Encounter Details Date Type Department Care Team (Late st Contact Info) Description 10/31/2015 Historical Ophthalmology [facility] Ole Viera Jr., M.D. [address] [phone] Social History Tobacco Use Types Packs/Day Years [...] VF OU CDM Reports - EYEGEN Id: [id number] Status: Fnl documented in this encounter Plan of Treatment Not on file documented as of this encounter Visit Diagnoses Not on filedocumented in this encounter Additional Health Concerns Assessment Noted Time PHQ-9 Depression Total Score: 0 04/27/20 15 3:20 PM CDT documented as of this encounter
--- OUTSIDE RECORDS SUMMARY | 2024-02-24 00:25 | XMS_ITS | Clinical Summary ---
Author Organization [facility] Address [address] [place] [address] Care Team Providers Care Wharf Tender Helper Name Role Phone Unavailable Primary Care Provider Unavailabl e Source Comments Patient records contain information from all sites at [facility]. For routine questions regarding patient records, call [phone] during business hours, M-F 8:00 AM - 5:00 PM Central Time. Record requests for emergency care only can be directed to [phone] at any time.[facility] Allergies No known active allergies Medications [...] Atherosclerosis Extremity w Claudication Coronary Artery Disease [place] Vessel 11/30/2007 Hypertension Essential Primary 03/08/2003 Resolved [...] Comments Blood Pressure 151/57 08/04/2020 9:20 AM SANDER PORTABLE MACHINE Pulse 60 08/04/2020 9:05 AM SANDER PORTABLE MACHINE Temperature 36.5 ??C (97.7 ??F) 02/28/2019 9:34 AM CD T Respiratory Rate 16 02/15/2018 9:14 AM CDT Oxygen Saturation 98% 08/04/2020 9:05 AM SANDER PORTABLE MACHINE Inhaled Oxygen Concentration - - Weight 72.7 kg (160 lb 4.4 oz) 08/04/2020 9:05 A M SANDER PORTABLE MACHINE Height 160 cm (5' 2.99) 02/28/2019 9:34 AM CDT Body Mass Index 28.4 02/28/2019 9:34 AM CDT Plan of Treatment Health Maintenance Due Date Last Done Comments RSV vaccine - (32-3 6 weeks) or 60+ years (1 - 1-dose 75+ series) 2010 Pneumococcal vaccine (65+ ye ars) (2 of 2 - PPSV23 or PCV20) 05/02/2015 03/07/2015, 07/02/2009, 07/02/2009 Potassium Level 06/13/2015 06/13/2014 Sodium Level 06/13/2015 06/13/2014 Creatinine Level (Kidney Fun ction Test) 07/06/2021 07/06/2020, 03/02/2017, 12/25/2014, Additional history exists Depression Screening (Annual PHQ-2) 05/30/2023 Fall Risk Screen (Annual) 05/30/2023 COVID-19 Vaccine (8 - 2023-2 5 season) 2024 03/03/2023, 06/29/2022, 04/01/2022, Additional history exists Influenza Vaccine (#1) 2024 3, 03/02/2022, 02/21/2022, Additional history exists DTaP,Tdap,and Td Vaccines (2 - Td or Tdap) 12/11/2024 12/11/2014, 05/13/2009 Zoster Vaccines Completed 12/19/2018, 07/28, 08/02/2009 Medical Devices Implanted Type Area Basket Grader Device Identifier Shelf Expiration Date Model / Serial / Lot Protege Everflex 7 X 80 X 120 - [id number] Implanted:Qty: 1 on 06/27/2008 Vascular Stent ev3 Description:Device Manufactu rer - EV3. Device Status Text - [id number]. Procedures Procedure Name Priority Date/Time Associated Diagnosis Comments CREATININE WITH EGFR, S/P Routine 03/02/2017 11:27 AM CDT SODIUM, S/P Routine 06/13/2014 10:30 AM SANDER PORTABLE MACHINE POTASSIUM, S/P Routine 06/13/2014 10:30 AM SANDER PORTABLE MACHINE from Last 3 Months or Most Recently Relevant to Health Maintenance Results * (ABNORMAL) Creatinine with Estimated GFR (MDRD) (03/02/2017 11:27 AM CDT) Creatinine 0.5(L) 0.6 - 1.1 MG/DL [facility] 03/02/2017 11:2 7 AM CDT 03/02/2017 11:27 AM CDT Kellen Kevin APRN, C.N.P., M.S. LAB BLOOD ADD-ON [facility] [address] * Sodium (06/13/2014 10:30 AM SANDER PORTABLE MACHINE) Sodium, S 137 135 - 145 MMOL/L [facility] 06/13/2014 10:3 0 AM SANDER PORTABLE MACHINE 06/13/2014 10:30 AM SANDER PORTABLE MACHINE Kellen Kevin APRN, C.N.P., M.S. LAB BLOOD ADD-ON Performing Organization Address City/[facility] Co de Phone Number [facility] [address] * Potassium (06/13/2014 10:30 AM SANDER PORTABLE MACHINE) Potassium, S 4.1 3.6 - 5.2 MMOL/L [facility] 06/13/2014 10:3 0 AM SANDER PORTABLE MACHINE 06/13/2014 10:30 AM SANDER PORTABLE MACHINE Kellen Kevin APRN, C.N.P., M.S. LAB BLOOD ADD-ON Performing Organization Address City/[facility] Co de Phone Number [facility] [address] from Last 3 Months or Most Recently Relevant to Health Maintenance Insurance Payer Benefit Plan / Group Subscriber ID Effective Dates Phone Address Type MEDICARE MEDICARE A AND B [id number] 2000-Pres ent [address] [place] [address] Medicare [employer] [facility] FEDERAL RET[employer]REE [facility] [id number] 2023-05/01 [address] [address] [place] [address] Indemnity Advance Directives For more information, please contact: [phone] Documents on File Type Date Recorded Patient Consumer Insight Analyst Expl anation Advance Directives 06/27/2008 12:00 AM Leg acy document. See document viewer.
--- OUTSIDE RECORDS SUMMARY | 2024-02-24 00:25 | XMS_ITS | Referral Summary ---
Author Organization [facility] Address [address] [place] [address] Care Team Providers Care Landscaping Specialist Name Role Phone Unavailable Primary Care Provider Unavailabl e Source Comments Patient records contain information from all sites at [facility]. For routine questions regarding patient records, call [phone] during business hours, M-F 8:00 AM - 5:00 PM Central Time. Record requests for emergency care only can be directed to [phone] at any time.[facility] Allergies No known active allergies Medications [...] Atherosclerosis Extremity w Claudication Coronary Artery Disease [place] Vessel 11/30/2007 Hypertension Essential Primary 03/08/2003 Resolved [...] Comments Blood Pressure 151/57 08/04/2020 9:20 AM SOURCING ASSOCIATE Pulse 60 08/04/2020 9:05 AM SOURCING ASSOCIATE Temperature 36.5 ??C (97.7 ??F) 02/28/2019 9:34 AM CD T Respiratory Rate 16 02/15/2018 9:14 AM CDT Oxygen Saturation 98% 08/04/2020 9:05 AM SOURCING ASSOCIATE Inhaled Oxygen Concentration - - Weight 72.7 kg (160 lb 4.4 oz) 08/04/2020 9:05 A M SOURCING ASSOCIATE Height 160 cm (5' 2.99) 02/28/2019 9:34 AM CDT Body Mass Index 28.4 02/28/2019 9:34 AM CDT Plan of Treatment Not on file Medical Devices Implanted Type Area Nursing Administrator Device Identifier Shelf Expiration Date Model / Serial / Lot Protege Everflex 7 X 80 X 120 - [id number] Implanted:Qty: 1 on 06/27/2008 Vascular Stent ev3 Description:Device Manufactu rer - EV3. Device Status Text - [id number]. Procedures Procedure Name Priority Date/Time Associated Diagnosis Comments CREATININE WITH EGFR, S/P Routine 03/02/2017 11:27 AM CDT SODIUM, S/P Routine 06/13/2014 10:30 AM SOURCING ASSOCIATE POTASSIUM, S/P Routine 06/13/2014 10:30 AM SOURCING ASSOCIATE from Last 3 Months or Most Recently Relevant to Health Maintenance Results * (ABNORMAL) Creatinine with Estimated GFR (MDRD) (03/02/2017 11:27 AM CDT) Creatinine 0.5(L) 0.6 - 1.1 MG/DL [facility] [place] 03/02/2017 11:2 7 AM CDT 03/02/2017 11:27 AM CDT Kellen Kevin APRN, C.N.P., M.S. LAB BLOOD ADD-ON [facility] [address] * Sodium (06/13/2014 10:30 AM SOURCING ASSOCIATE) Sodium, S 137 135 - 145 MMOL/L [facility] 06/13/2014 10:3 0 AM SOURCING ASSOCIATE 06/13/2014 10:30 AM SOURCING ASSOCIATE Kellen Kevin APRN, C.N.P., M.S. LAB BLOOD ADD-ON [facility] [place] [address] * Potassium (06/13/2014 10:30 AM SOURCING ASSOCIATE) Potassium, S 4.1 3.6 - 5.2 MMOL/L [facility] [place] 06/13/2014 10:3 0 AM SOURCING ASSOCIATE 06/13/2014 10:30 AM SOURCING ASSOCIATE Kellen Kevin APRN, C.N.P., M.S. LAB BLOOD ADD-ON [facility] [place] [address] from Last 3 Months or Most Recently Relevant to Health Maintenance Insurance Payer Benefit Plan / Group Subscriber ID Effective Dates Phone Address Type MEDICARE MEDICARE A AND B [id number] 2000-Pres ent [address] [place] [address] Medicare [employer] [facility] FEDERAL RETIREE [facility] [id number] 2023-05/01 [address] [address] [place] [address] Indemnity Advance Directives For more information, please contact: [phone] Documents on File Type Date Recorded Patient Word Processing Operator Expl anation Advance Directives 06/27/2008 12:00 AM Leg acy document. See document viewer.
--- OUTSIDE RECORDS SUMMARY | 2024-02-24 00:25 | XMS_ITS | Encounter Summary ---
Author Organization [facility] Address [address] [place] [address] Care Team Providers Care Director Of Customer Service Name Role Phone Unavailable Primary Care Provider Unavailabl e Encounter Details Date Type Department Care Team (Late st Contact Info) Description 11/08/2016 Historical Ophthalmology [facility] Ole Viera Jr., M.D. [address] [phone] Social History Tobacco Use Types Packs/Day Years [...] VF OU CDM Reports - EYEGEN Id: [id number] Status: Fnl documented in this encounter Plan of Treatment Not on file documented as of this encounter Visit Diagnoses Not on filedocumented in this encounter Additional Health Concerns Assessment Noted Time PHQ-9 Depression Total Score: 0 09/24/19 15 3:20 PM CDT documented as of this encounter
--- OUTSIDE RECORDS SUMMARY | 2024-02-24 00:25 | XMS_ITS ---
Author Organization [facility] Address [address] [place] [address] Care Team Providers Care Glass Wool Blanket Machine Feeder Name Role Phone Unavailable Unavailable Unavailable Surgery Details Not on file Complications Check Surgery Details section. Procedure Estimated Blood Loss Check Surgery Details section. Procedure Findings Check Surgery Details section. Procedure Specimens Taken Check Surgery Details section.
== END 2024-02-17 15:09 | disposition home or self-care (01) ==
LOC: AMB 02-24 00:19
PROVIDERS: Visit Provider Family Medicine
DX: S09.93XA Unspecified injury of face, initial encounter (principal); W01.0XXA Fall on same level from slipping, tripping and stumbling without subsequent striking against object, initial encounter; Y92.096 Garden or yard of other non-institutional residence as the place of occurrence of the external cause
CPT/HCPCS: A0425; A0429

== ENCOUNTER 2024-02-17 15:34 | Inpatient (IN) | payer MEDICARE, OTHER, SELFPAY ==
[2024-02-17 15:36] VITALS: BP 134/63; PULSE 66; RESP 18; TEMP 36.7; O2SAT 97; BMI 24.9
--- NOTE | 2024-02-17 16:21 | CRLHL7_ITS ---
For Patients: As a result of the Century Cures Act, medical imaging exams and procedure reports are released immediately into your electronic medical record. You may view this report before your referring provider. If you have questions, please contact your health care provider. INDICATION: Fall. TECHNIQUE: CT of the cervical spine without contrast. Coronal and sagittal reformats are included. COMPARISON: None. FINDINGS: No acute fracture or traumatic malalignment of the cervical spine. Craniocervical junction alignment is maintained. Advanced disc degeneration C3-4, C4-5 and C5-6. Jkth-cg-wvoaiiuf disc degeneration elsewhere. Multilevel uncovertebral/facet arthrosis with high-grade neural foraminal stenosis at C3-4 on the left, C5-6 bilaterally, and C6-7 on the right. No high grade spinal canal stenosis as far as visualized. Degenerative osseous fusion along the C4-5 facet joints. Thick vascular calcifications carotid bulbs. Multinodular right-sided thyroid gland. The visualized pulmonary apices are clear. IMPRESSION: 1. No acute fracture or traumatic malalignment of the cervical spine. Please note that all CT scans at this facility use dose modulation, iterative reconstruction, and/or weight-based dosing when appropriate to reduce radiation dose to as low as reasonably achievable. Dictated by Ian Morley MD @ 02/17/2024 5:46:44 PM (Electronically Signed)
--- NOTE | 2024-02-17 16:21 | CRLHL7_ITS ---
For Patients: As a result of the Century Cures Act, medical imaging exams and procedure reports are released immediately into your electronic medical record. You may view this report before your referring provider. If you have questions, please contact your health care provider. Indication: Fall Technique: Three views of the left knee. Comparison: None. Findings: Mild degenerative changes of the medial and lateral compartments of the knee. Calcification of the medial and lateral menisci. Moderately comminuted mildly displaced patellar fractures with moderate overlying soft tissue swelling. Moderate knee joint effusion. Overlying dressings limit evaluation for fine bony detail. Moderate vascular calcification. Impression: Moderately comminuted mildly displaced patellar fractures. Dictated by Ciro Hicks MD @ 02/17/2024 6:04:57 PM (Electronically Signed)
--- NOTE | 2024-02-17 16:21 | CRLHL7_ITS ---
For Patients: As a result of the Century Cures Act, medical imaging exams and procedure reports are released immediately into your electronic medical record. You may view this report before your referring provider. If you have questions, please contact your health care provider. INDICATION: Fall. TECHNIQUE: CT of the head without contrast. Coronal and sagittal reformats are included. COMPARISON: Brain MRI from 06/24/2023. FINDINGS: No acute intracranial hemorrhage. No mass effect or midline shift. No hydrocephalus or extra-axial collections. Patchy white matter hypoattenuation, typical for chronic microvascular ischemic change. Thick vascular calcifications carotid siphons and right intradural vertebral artery. No acute osseous abnormalities. Moderate rightward nasal septal deviation. Mastoid air cells and paranasal sinuses are clear. Normal soft tissues. IMPRESSION: IMPRESSION: 1. No acute intracranial abnormalities. Please note that all CT scans at this facility use dose modulation, iterative reconstruction, and/or weight-based dosing when appropriate to reduce radiation dose to as low as reasonably achievable. Dictated by Ian Morley MD @ 02/17/2024 5:41:37 PM (Electronically Signed)
--- NOTE | 2024-02-17 16:22 | ED_ITS ---
HPI - Fall General Chief Complaint: Fall/Minor Trauma Stated Complaint: Fall Time Seen by Provider: 02/17/24 15:56 History of Present Illness HPI Narrative: This 89-year-old female comes in for evaluation of a fall that occurred just prior to arrival. She tripped and fell mostly onto her left knee. She complains of pain at her left knee and has not been able to get up and ambulate since the fall because people around her did not allow her to try to do this. She states that she did not hit her head or have loss of consciousness. She is on anticoagulants. She does describe a mild headache but attributes that to the C-collar she is wearing. Related Data Home Medications ?Medication ?Instructions ?Recorded ?Confirmed atorvastatin 80 mg tablet 80 mg PO DAILY 05/20/22 02/17/24 hydrochlorothiazide 25 mg tablet 25 mg PO DAILY 05/20/22 02/17/24 lisinopril 40 mg tablet 40 mg PO DAILY 05/20/22 02/17/24 omeprazole 20 mg capsule,delayed 20 mg PO .2X/WEEK 05/20/22 02/17/24 release aspirin 81 mg tablet,delayed 81 mg PO DAILY 06/25/23 02/17/24 release (Adult Low Dose Aspirin) apixaban 5 mg tablet (Eliquis) 5 mg PO BID 02/17/24 02/17/24 calcium citrate 315 mg-vitamin D3 2 tab PO DAILY 02/17/24 02/17/24 5 mcg (200 unit) tablet (Calcium Citrate + D) cetirizine 10 mg tablet (24Hour 10 mg PO DAILY PRN 02/17/24 02/17/24 Allergy) fluticasone propionate 50 2 spray intranasal DAILY PRN 02/17/24 02/17/24 mcg/actuation nasal spray,suspension (24 Hour Allergy Relief) metoprolol succinate 50 mg 50 mg PO BID 02/17/24 02/17/24 tablet,extended release 24 hr spironolactone 25 mg tablet 25 mg PO DAILY 02/17/24 02/17/24 Allergies Allergy/AdvReac Type Severity Reaction Status Date / Time No Known Drug Allergies Allergy Verified 09/22/23 15:14 Review of Systems Status of ROS: Reports: 10 or more systems reviewed and unremarkable except as noted in History and below Narrative: Constitutional: No fevers, no weight gain or loss. Eyes: No discharge. No vision changes. HENT: No congestion, no sore throat, no ear pain. Cardiovascular: No chest pain, no palpitations. Respiratory: No shortness of breath, no wheezes, no cough. Gastrointestinal: No abdominal pain, no vomiting, no diarrhea. Genitourinary: No dysuria, no hematuria. Musculoskeletal: Normal range of motion. Left knee pain. Skin: No rashes, no pruritis. Neurological: No dizziness, weakness, sensory change, speech change. Endo/Heme/Allergies: No bruising or bleeding. No polydipsia. Pysch: no suicidality, no anxiety, no insomnia. All other systems reviewed and are negative. [facility] Social History Smoking Status: Never smoker Do you use any of these nicotine containing products: None Second hand tobacco smoke exposure: No How often do you have a drink containing alcohol: monthly or less How many standard drinks containing alcohol do you have on a typical day: 1 or 2 How often do you have six or more drinks on one occasion: Never AUDIT-C Alcohol total score: 1 Non-prescribed substance use: denies use service: Yes Exam Narrative: Exam Narrative: Constitutional: Well-developed, well-nourished, no acute distress. HEENT: Normocephalic, atraumatic. No sign of injury. Neck: Normal range of motion. Nontender. Supple. Heart: Intact distal pulses. Lungs: No chest discomfort. No wheezes, rhonchi, or rales. Abdomen: Nontender. Back: Normal range of motion. Extremities: Swelling with ecchymosis on the anterior surface of the left knee. Skin: Intact. No rash. Warm. No erythema or pallor. Neurologic: No altered sensation. No weakness. Alert and oriented. Psychiatric: No suicidality. No anxiety or depression. No insomnia. Nursing notes and vitals signs are reviewed. Const: Vital Signs, click to edit/add: Vital Signs - 24 hr 02/17/24 15:36 Temperature 98.1 F Pulse Rate [Pulse Oximeter] 66 Respiratory Rate 18 Blood Pressure [Le ft Upper Arm] 134/63 Pulse Oximetry 97 Oxygen Delivery Me thod Room Air Course Vital Signs Vital signs: Initial Vital Signs Temperature 98.1 F 02/17/24 15:36 Temperature Source Temporal Artery Scan 02/17/24 15:36 Pulse Rate 66 02/17/24 15:36 Pulse Rhythm Regular 02/17/24 15:36 Respiratory Rate 18 02/17/24 15:36 Blood Pressure 134/63 02/17/24 15:36 Blood Pressure Mean 86 02/17/24 15:36 Blood Pressure Position Supine 02/17/24 15:36 Pulse Oximetry 97 02/17/24 15:36 Oxygen Delivery Method Room Air 02/17/24 15:36 Vital Signs Temperature 98.1 F 02/17/24 15:36 Pulse Rate 66 02/17/24 15:36 Respiratory Rate 18 02/17/24 15:36 Blood Pressure 134/63 02/17/24 15:36 Pulse Oximetry 97 02/17/24 15:36 Oxygen Delivery Method Room Air 02/17/24 15:36 Temperature 98.1 F 02/17/24 15:36 Pulse Rate 66 02/17/24 15:36 Respiratory Rate 18 02/17/24 15:36 Blood Pressure 134/63 02/17/24 15:36 Pulse Oximetry 97 02/17/24 15:36 Oxygen Delivery Method Room Air 02/17/24 15:36 MDM - Fall MDM Narrative Medical decision making narrative: This patient comes in for evaluation of injuries from a fall that occurred prior to arrival. Her primary source of pain and discomfort is her left knee. She is on Eliquis for managing atrial fibrillation. She does not report a headache and shows no sign of any other injury. I did obtain a CT scan of her head and C- spine as she is on Eliquis. These returned with no acute findings. X-ray imaging of her left knee does show a comminuted fracture of the left patella with mild displacement. I did speak with orthopedic physician's addictions counselor assistant wildlife biostation research ecologist who will connect with the surgeon to arrange for surgical repair. I also spoke with the hospitalist on-call, Dr. Bowens, who will arrange for her admission. Imaging Data XR L Knee: Radiologist's impression: Moderately comminuted mildly displaced patellar fractures. Discharge Plan Discharge Clinical Impression: Fracture, patella Patient Disposition: Admitted As Observation
--- OUTSIDE RECORDS SUMMARY | 2024-02-17 16:49 | XMS_ITS | Encounter Summary ---
Author Name [facility] [facility] [place] [facility] [place] Address [address] [place] [address] Care Team Providers Care Maintenance Supervisor 2Nd Shift Name Role Phone NATALIA TREJO Primary Care Provider Unav ailable Insurance Providers: All historical and current Section Date Range: From patient's date of to the date document was created. This section includes the names of all active insurance providers for the patient. Insurance Provider Type of Coverage Plan Name Start of Policy Coverage End of Policy Coverage Group Number Member ID Insurance Provider's Telephone Number Policy Talavera's Name Patient's Relationship to Policy Talavera [facility] ([id number]) PRESCRIPT ION GEHA May 30, 2005 [id number] SONIA GUTIERRES PATIENT GEHA (SECONDARY ) PREFERRED PROVIDER ORGANIZAT ION (PPO) GEHA A&B PRIMA RY May 30, 2005 [id number] SONIA GUTIERRES PATIENT GEHA (SECONDARY ) PREFERRED PROVIDER ORGANIZAT ION (PPO) GEHA A/B PRIMA RY May 30, 2005 [id number] SONIA GUTIERRES PATIENT [facility] PREFERRED PROVIDER ORGANIZAT ION (PPO) DO NOT USE May 30, 2005 [id number] TONI BRITO PATIENT MEDICARE (WNR) MEDICARE (M) PART A Jan 29, 2000 PART A [id number] [phone] ITZSONIA AJ PATIENT MEDICARE (WNR) MEDICARE (M) PART B Jan 29, 2000 PART B [id number] [phone] SONIA GUTIERRES REINADEJUAN PATIENT Selected Encounter This section includes the [...] PRIMARY Clonic hemifacial spasm, left VITOR THORNE [facility] Plan of Treatment: Future Appointments (+ 6 months) and Future Tests (+/- 45 days) The Plan of Treatment section includes future care activities for the patient from all [place] [facility]. This section includes future appointments [...] 18, 2023 09:15 AM AMBULATORY - SURGERY [facility] May 24, 2023 05:00 PM AMBULATORY - REHAB MEDICIN E [facility] May 31, 2023 01:00 PM AMBULATORY - SURGERY [facility] Jun 24, 2023 09:15 AM AMBULATORY - NONE [facility] Jun 28, 2023 10:40 AM AMBULATORY - SURGERY [facility] Jul 14, 2023 08:00 AM AMBULATORY - MEDICINE [facility] Jul 14, 2023 01:15 PM AMBULATORY - MEDICINE [facility] Aug 03, 2023 07:01 AM AMBULATORY - NONE [facility] Aug 09, 2023 10:30 AM AMBULATORY - NONE [place] [facility] Aug 09, 2023 11:00 AM AMBULATORY - REHAB MEDICIN E [facility] Sep 09, 2023 08:00 AM AMBULATORY - NONE [place] [facility] Sep 12, 2023 09:30 AM AMBULATORY - NONE [place] [facility] Sep 12, 2023 10:30 AM AMBULATORY - MEDICINE RAD LEE [facility] Sep 26, 2023 09:00 AM AMBULATORY - SURGERY [facility] Vital Signs: All taken on the encounter date This section contains inpatient and outpatient Vital Signs collected on the date of the Encounter. Date/Time Temperature Pulse Blood Pressure Respiratory Rate SP02 Pain Height Weight Body Mass Index Source May 09, 2023 03:00 PM 98.2 F 67 /min 125/70 mm[Hg] 18 /min 97 % 0 162 lb 31 [facility] Social History: Smoking Status (Most [...] Facil ity October 18, 2022 10:00 AM [place] NEVER USED [facility] Tobacco Use History This section includes a history of the smoking, or tobacco-related health factors, that were collected on or before the date of the Encounter. The data comes from the [place] facility where the Encounter took place. Date/Time Smoking Status/Tobacco Use Comment F acnelia September 28, 2021 09:30 AM [place] NEVER USED [facility] Nov 10, 2020 08:30 AM [place]-TO[facility]AC[facility] NEVER USED [facility] Pathology Reports: +/- 30 days of [...] comes from all [place] treatment facilities. Date/Time Pathology Report Provider Source May 20, 2023 11:08 AM LR SURGICAL PATHOL OGY REPORT: LOCAL TITLE: LR SURGICAL PATHOLOGY REPORT STANDARD TITLE: PATHOLOGY REPORT DATE OF NOTE: MAY 20, 2023@11:08:01 ENTRY DATE: MAY 20, 2023@11:08:01 AUTHOR: BRIAN PARADA COSIGNER: URGENCY: STATUS: COMPLETED $APHDR Reporting Lab: [facility] [CLIA# [id number]] [place] [address] - - - - - - - [...] - PATHOLOGY REPORT Accession No. [id number] - - - - - - - [...] - - - POSTOPERATIVE DIAGNOSIS: Surgeon/physician: IDCK V. WASSERMAN =-=-=-=-=-=-=-=-=-=-=-=-=-= -=-=-=-=-=-=-=-=-=-=-=-=-=- =-=-=-=-=-=-=-=-=-=-=-=-= - - - - - - - - - - - - - - - - - - - - - - - - - - - - - - - - - - - - - - - - PATHOLOGY REPORT Accession No. [id number] - - - - - - - [...] 6 o'clock tip, en face. CE. [facility]OS[facility]IC DESCRIPTION: Microscopic examination performed. CI. DIAGNOSIS: Skin; left shoulder; excisional biopsy-- -no evidence of residual carcinoma -scar /es/ BRIAN PARADA M.D. STAFF PATHOLOGIST Signed May 20, 2023@11:08 Performing Laboratory: Surgical Pathology Report Performed By: [facility] [CLIA# [id number]] [place] [address] $FTR - - - - - - - - - - - - - - - - - - - - - - - - - - - - - - - - - - - - - - - - (End of report) BRIAN rodriguez Date May 20, 2023 - - - - - - - - - - - - - - - - - - - - - - - - - - - - - - - - - - - - - - - - YARIEL GUTIERRES STANDARD FORM 515 ID:[id number] SEX:F :[id number] AGE: 88 LOC:[id number] PCP: Natalia Sales MD /baltazar/ BRIAN PARADA M.D. STAFF PATHOLOGIST Signed: 05/20/2023 11:08 BRIAN PARADA [facility] Encounter Notes: All associated encounter notes This section contains the clinical notes associated to the Encounter. Date/Time Encounter Note(s) Provider Source May 09, 2023 03:06 PM PHYSICAL MEDICINE REHAB NURSING NOTE: LOCAL TITLE: REHAB MEDICINE CLINIC NURSING NOTE STANDARD TITLE: PHYSICAL MEDICINE REHAB NURSING NOTE DATE OF NOTE: MAY 09, 2023@15:06 ENTRY DATE: MAY 09, 2023@15:06:44 AUTHOR: JEANNETTE ORONA EXP COSIGNER: URGENCY: STATUS: COMPLETED Type of visit: [...] PRACTICAL NURSE Signed: 05/09/2023 15:07 TODD ORONA [facility] May 09, 2023 02:56 PM NEUROLOGY ATTENDING [...] Toxin Used: OnabotulinumtoxinA, 100 unit vial Lot#: [id number] Expiration Date: 08/2025 Impression and Plan: Yariel [...] date of service reviewing records, evaluating the [place] [id number], coordinating care, and documenting the encounter. /baltazar/ VITOR THORNE Physician Signed: 05/10/2023 15:08 VITOR THORNE [facility]
--- OUTSIDE RECORDS SUMMARY | 2024-02-17 16:49 | XMS_ITS | Encounter Summary ---
Author Name [facility] Organization [facility] [place] Address [address] [place] [address] Care Team Providers Care Bonsai Culturist Name Role Phone NATALIA TREJO Primary Care [...] to Policy Tala[employer] [facility] ([id number]) PRESCRIPT ION GEHA May 30, 2005 [id number] [phone] SONIA MOBLEY PATIENT GEHA (SECONDARY ) PREFERRED PROVIDER ORGANIZAT ION (PPO) GEHA A/B PRIMA RY May 30, 2005 [id number] [phone] SONIA MOBLEY PATIENT [facility] (SECONDARY ) PREFERRED PROVIDER ORGANIZAT ION (PPO) GEHA A&B PRIMA RY May 30, 2005 [id number] SONIA MOBLEY PATIENT [facility] PREFERRED PROVIDER ORGANIZAT ION (PPO) DO NOT USE May 30, 2005 [id number] TONI BRITO PATIENT MEDICARE (WNR) MEDICARE (M) PART A Jan 29, 2000 PART A [id number] SONIA MOBLEY PATIENT MEDICARE (WNR) MEDICARE (M) PART B Jan 29, 2000 PART B [id number] [phone] SONIA MOBLEY PATIENT Selected Encounter This section includes the information on record at [place] for the Encounter. Date/Time Encounter Type Encounter Description Reason Provider Source Jul 14, 2023 01:15 PM OFFICE O/P EST MOD 30 MIN COMP [facility] ICD-10-CM I48.91 Unspecified atrial fibrillation NATALIA TREJO [facility] Encounter Template Text not used by [place] Assessments - Encounter Diagnoses This section includes the primary and secondary diagnoses documented for the Encounter. Date/Time Primary/Secondary Diagnosis Diagnosis Name Provider Source Jul 27, 2023 12:42 PM PRIMARY Unspecified atrial fibrillation NATALIA TREJO [facility] Plan of Treatment: Future Appointments (+ 6 months) and Future Tests (+/- 45 days) The Plan of Treatment section includes future care activities for the [facility] [place] [facility] This section includes future appointments and [...] 07:01 AM AMBULATORY - NONE [place] [facility] Aug 09, 2023 10:30 AM [place] [facility] Aug 09, 2023 11:00 AM AMBULATORY - REHAB MEDICIN E [facility] Sep 09, 2023 08:00 AM AM[place]ORY [place] NONE [place] [facility] Sep 12, 2023 09:30 AM AM[place]ORY - [place]ONE [place] [facility] Sep 12, 2023 10:30 AM [facility] [place] [facility] Sep 26, 2023 09:00 AM AMBUL[place]ORY [place] [facility] Nov 14, 2023 10:00 AM [facility] [place] [facility] Nov 14, 2023 10:30 AM [facility] [place] [facility] Nov 22, 2023 09:20 AM AMBULATORY - SURGERY [facility] Dec 19, 2023 09:00 AM AMBULATORY - REHAB MEDICIN E [facility] Dec 22, 2023 08:30 AM AMBULATORY - PSYCHIATRY [facility] Jan 12, 2024 12:30 PM AMBULATORY - SURGERY [facility] Lab Results: +/- 30 [...] Range Comment Aug 09, 2023 08:50 AM [facility] CREATININE(INCLUDES EGFR) Specimen Type: PLASMA No comment entered. Ordering Provider: SUZIE NELSON Report Released Date/Time: Jul 29, 2023 11:58 AM Reporting Lab: [facility] [id number] Performing Lab: [facility] [id number] CREATININE 0.7 mg/dL 0.5-1.0 .CREAT EGFR(CKD-EPI ) 83 >60 Aug 09, 2023 08:50 AM [facility] CBC Specimen Type: BLOOD No comment entered. Ordering Provider: SUZIE NELSON Report Released Date/Time: Jul 29, 2023 11:58 AM Reporting Lab: [facility] [id number] Performing Lab: [facility] [address] WBC 5.92 10*3/uL 4.0-11.0 RBC 4.72 10*6/uL 4.0-5.4 HGB 13.9 g/dL 11.5-16 HCT 40.3 34.5-48 MCV 85.4 fL 80-100 MCH 29.4 pg 27-33 MCHC 34.5 g/dL 32.0-37.5 PLT 211 10*3/uL 150-400 MPV 9.2 fL 7.4-10.4 RDW 13.3 11.5-14.5 Aug 09, 2023 08:50 AM [facility] AST/SGOT Specimen Type: PLASMA No comment entered. Ordering Provider: SUZIE NELSON Report Released Date/Time: Jul 29, 2023 11:58 AM Reporting Lab: [facility] [id number] Performing Lab: [facility] [id number] AST/SGOT 28 U/L <34 Aug 09, 2023 08:50 AM [facility] ALT/SGPT Specimen Type: PLASMA No comment entered. Ordering Provider: SUZIE NELSON Report Released Date/Time: Jul 29, 2023 11:58 AM Reporting Lab: [facility] [phone] Performing Lab: [facility] [address] ALT/SGPT 21 U/L <55 Vital Signs: All taken on the encounter date This section contains inpatient and outpatient Vital Signs collected on the date of the Encounter. Date/Time Temperature Pulse Blood Pressure Respiratory Rate SP02 Pain Height Weight Body Mass Index Source Jul 14, 2023 01:14 PM 65 135/79 16 96 0 163.5 31 [facility] Social History: Smoking Status (Most [...] 18, 2022 10:00 AM [place]-TOBACCO NEVER USED [facility] Tobacco Use History This section includes a history of the smoking, or tobacco-related health factors, that were collected on or before the date of the Encounter. The data comes from the [place] facility where the Encounter took place. Date/Time Smoking Status/Tobacco Use Comment F acnelia September 28, 2021 09:30 AM [place]-TOBACCO NEVER USED [facility] Nov 10, 2020 08:30 AM [place]-TOBACCO NEVER USED [facility] Radiology Reports: +/- 30 days of [...] 2023 09:13 AM MRI-BRAIN (P): ALICE MOBLEY [id number] -[id number] F Exm Date: JUN 24, 2023@09:13 Req Phys: VITOR THORNE Loc: [facility] NEURO [facility] MATI (Req'g Img Loc: OUTSOURCE MRI Service: Unknown (Case [id number] COMPLETE) NON [place] MRI BRAIN (MRI Detailed) CPT:30191 Reason for Study: eval for lesion/dolichoectasia to explain L hemifacial spasm Clinical History: MRI BRAIN WITH & WITHOUT CONTRAST WITH FINE CUTS THROUGH CN VII Per Joint Commission Standards, by signing this diagnostic imaging request the ordering provider confirms they have considered patients age and recent imaging history. Did the ordering provider speak with a executive search consultant regarding this imaging exam? 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 History of breast cancer, giant cell arteritis. Responsible provider name and phone number to notify for critical findings if other than user placing the order and pager listed below: User placing orders pager: [phone] LAST CREATININE 0.6 (03/15/23) Allergies: Patient has answered NKA Report Status: Electronically Filed Date Reported: JUL 26, 2023 Report: This is an outside Imaging study and/or report imported for continuity of patient care. This Imaging study and/or report was not reviewed or verified by a [place] Radiologist. Impression: This is an outside Imaging study and/or report imported for continuity of patient care. This Imaging study and/or report was not reviewed or verified by a [place] Radiologist. Primary Diagnostic Code: VERIFIED BY: / *ELECTRONICALLY FILED* [facility] Encounter Notes: All associated encounter notes This section contains the clinical notes associated to the Encounter. Date/Time Encounter Note(s) Provider Source Aug 09, 2023 12:57 PM LETTERS: LOCAL TITLE: FOLLOW UP RESULTS LETTER STANDARD TITLE: LETTERS DATE OF NOTE: AUG 09, 2023@12:57 ENTRY DATE: AUG 09, 2023@12:57:47 AUTHOR: WEI TREJO EXP COSIGNER: URGENCY: STATUS: COMPLETED [facility] [address] [place] [address] Jul ALICE MOBLEY [address] Sivakumar [address] [facility] [address] Dear [place]: I am writing to inform you of the results of the tests you had done at the [facility]. Your heart monitor returned showing no atrial fibrillation. I want you to continue the blood thinners for now. We can talk about long-term use the next time we see each other. If you have any further questions or problems, please contact our nursing staff or me at the following number: [phone]. Sincerely, Natalia Sales MD STAFF PHYSICIAN NATALIA TREJO [facility] Jul 20, 2023 02:29 PM ADDENDUM: LOCAL TITLE: Addendum STANDARD TITLE: ADDENDUM DATE OF NOTE: JUL 20, 2023@14:29:24 ENTRY DATE: JUL 20, 2023@14:29:26 AUTHOR: WEI TREJO EXP COSIGNER: URGENCY: STATUS: COMPLETED Patient would like to stop Radha at this time. Thanks. /baltazar/ Natalia Sales MD STAFF PHYSICIAN Signed: 07/20/2023 14:29 [...] 2011 4. Polymyalgia rheumatica 5. Prediabetes ([facility] [id number]) 6. 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 - pT1c, N0, M0-Stage 1A - s/p lumpectomy 06/2014, radiation therapy - On Anastrazole since 07/2014 7. History of cholecystectomy 8. History of total knee arthroplasty - R knee 9. Peripheral vascular disease - s/p stenting Femoral artery, 2008 10. Sleep Apnea ([facility] [id number]) 11. Benign essential hypertension 12. Thoracic aortic [...] stop Due for routine follow-up in August. Natalia Sales MD Staff Physician Section of [facility] // Natalia Sales MD STAFF PHYSICIAN Signed: 07/20/2023 14:29 07/20/2023 ADDENDUM STATUS: COMPLETED done /baltazar/ MICKI JAIN REGISTERED NURSE Signed: 07/20/2023 14:35 NATALIA TREJO [facility] Jul 14, 2023 02:03 PM ADMINISTRATIVE NOTE: [...] provided to the patient is available in [employer]. SCANNED DOCUMENT SIGNATURE NOT REQUIRED Electronically Filed: 07/14/2023 by: Natalia Sales MD STAFF PHYSICIAN NATALIA TREJO [facility] Jul 14, 2023 01:28 PM [facility] OUTPATIENT E & M NOTE: LOCAL TITLE: WOMEN'S CLINIC NOTE STANDARD TITLE: [facility] OUTPATIENT E & M NOTE DATE OF NOTE: JUL 14, 2023@13:28 ENTRY DATE: JUL 14, 2023@13:28:21 AUTHOR: WEI TREJO COSIGNER: URGENCY: STATUS: COMPLETED [facility]INIC NOTE [...] 2011 4. Polymyalgia rheumatica 5. Prediabetes ([facility] [id number]) 6. 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 - pT1c, N0, M0-Stage 1A - s/p lumpectomy 06/2014, radiation therapy - On Anastrazole since 07/2014 7. History of cholecystectomy 8. History of total knee arthroplasty - R knee 9. Peripheral vascular disease - s/p stenting Femoral artery, 2008 10. Sleep Apnea ([facility] [id number]) 11. Benign essential hypertension 12. Thoracic aortic [...] stop Due for routine follow-up in August. Natalia Sales MD Staff Physician Section of Women's Health /baltazar/ Natalia Sales MD STAFF PHYSICIAN Signed: 07/20/2023 14:29 07/20/2023 ADDENDUM STATUS: COMPLETED Patient would like to stop Radha at this time. Thanks. /baltazar/ Natalia Sales MD STAFF PHYSICIAN Signed: 07/20/2023 14:29 Receipt Acknowledged By: 07/20/2023 14:35 /baltazar/ MICKI JAIN REGISTERED NURSE 07/20/2023 ADDENDUM STATUS: COMPLETED done /baltazar/ MICKI JAIN REGISTERED NURSE Signed: 07/20/2023 14:35 NATALIA TREJO [facility] Jul 14, 2023 01:16 PM [facility]: LOCAL TITLE: WOMEN'S CLINIC NURSING NOTE STANDARD TITLE: [facility]OMEN HEALTH NURSING OUTPATIENT NOTE DATE OF NOTE: JUL 14, 2023@13:16 ENTRY DATE: JUL 14, 2023@13:16:20 AUTHOR: MALCOLM VALLADARES COSIGNER: URGENCY: STATUS: COMPLETED TYPE OF VISIT: Appointment Check In Type of appointment: In-person appointment REASON FOR VISIT: [facility] ED f/u - increase chest discomfort and [...] Not worried about housing near future The [place] reports the following: Within the past 12 months, you worried whether your food would run out before you got money to buy more. Never true Within the past 12 months, the food you bought just didn't last and you didn't have money to get more. Never true Food Insecurity Resources /es/ MALCOLM VALLADARES LPN LICENSED PRACTICAL NURSE Signed: 07/14/2023 13:18 MALCOLM VALLADARES [facility]
--- OUTSIDE RECORDS SUMMARY | 2024-02-17 16:49 | XMS_ITS | Continuity of Care Document ---
Author Name [facility] Organization [facility] Care Team Providers Care Strategic Alliances Manager Name Role Phone [facility] Unavailable Unavailable Problems Combined list of problems from Department of Defense and Veterans Affairs facilities. It does not include entries that were removed or entered in error. Problem Status Onset Date Problem Type Date of Resolution Comments Source Atrial fibrillation Active Condition [place] [facility] Benign essential hypertension Active Condition [facility] CAD - Coronary artery disease Active Condition Mar 16, 2021 Entered By: DOMINIC TREJO Comment: Non-obstructive on angio 11/2007 (40% mid LAD, 40% prox LCx, 20% distal RCA, 30% PDA)Mar 16, 2021 Entered By: DOMINIC TREJO Comment: PET Myocardial Perfusion 06/2020: EF 71%; small area of mild ischemia in apical lateral wall and mild nontransmural infarction basal anterolateral wall [facility] Dementia Active Condition [facility] 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 ([facility] [id number]) Active Condition Mar 26, 2021 Entered By: DOMINIC TREJO Comment: L breast, 1.2 cm, 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; ER/FL pos, HER2 neg.Mar 26, 2021 Entered By: DOMINIC TREJO Comment: pT1c, N0, M0-Stage 1AMar 26, 2021 Entered By: DOMINIC TREJO Comment: s/p lumpectomy 06/2014, radiation therapyMar 26, 2021 Entered By: DOMINIC TREJO Comment: On Anastrazole since 07/2014 [facility] Giant cell arteritis Active Condition Mar 16, 2021 Entered By: DOMINIC TREJO Comment: 2011 [facility] 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 [place] [facility] History of cholecystectomy Active Condition [place] [facility] History of total knee arthroplasty Active Condition Mar 26 Entered By: DOMINIC TREJO Comment: R knee [facility] Long-term current use of anticoagulant Active Condition [facility] [place] Osteopenia Active Condition Mar 26 Entered By: DOMINIC TREJO Comment: R humerus fracture 2015; T score at L femoral neck -1.3 2020 Entered By: DOMINIC TREJO Comment: Started aledronate (35mg weekly) 03/2017 [facility] Peripheral vascular disease Active Condition Nov 17, 2020 Entered By: DOMINIC TREJO Comment: s/p stenting Femoral artery, 2008 [facility] Polymyalgia rheumatica Active Condition [facility] Prediabetes ([facility] [id number]) Active Condition [facility] Sleep Apnea ([facility] [id number]) Active Condition [facility] Thoracic aortic aneurysm without rupture Active Condition [facility] Diagnosis: ICD-10-CM H90.3 Sensorineural hearing loss, bilateral Active Diagnosis [facility] Diagnosis: ICD-10-CM F02.A0 Dem in other dis classd elswhr, mild, w/o beh/psych/mood/anx Active Diagnosis 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 [place] [facility] Diagnosis: ICD-10-CM I48.91 Unspecified atrial fibrillation Active Diagnosis 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VALENTE S [facility] Diagnosis: ICD-10-CM Z13.6 Encounter for screening for cardiovascular disorders Active Diagnosis [facility] Diagnosis: ICD-10-CM D48.5 Neoplasm of uncertain behavior of skin Active Diagnosis [facility] Diagnosis: ICD-10-CM Z71.9 Counseling, unspecified Active Diagnosis [facility] Diagnosis: ICD-10-CM Z48.02 Encounter for removal of sutures Active Diagnosis 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 GERSON [facility] Diagnosis: ICD-10-CM M25.572 Pain in left ankle and joints of left foot Active Diagnosis [facility] Diagnosis: ICD-10-CM M25.571 Pain in right ankle and joints of right foot Active Diagnosis [facility] Medications Combined list of outpatient medications from Department of Defense and Veterans Affairs facilities.Medications provided include 1) outpatient medications from the last 15 months, and 2) patient-reported medications. Medication Details Route Status Patient Instructions Prescription Expires Prescription Number Last Dispense Date Ordering Provider Order Date Order Qty Source AMLODIPINE BESYLATE 2.5MG TAB AMLODIPI NE BESYLATE 2.5MG TAB Disconti nued TAKE ONE TABLET BY MOUTH EVERY DAY FOR BLOOD PRESSURE FOR BLOOD PRESSURE Aug 10, 2022 30 Aug 11, 2023 [id number] Jan 07, 2023 DOMINIC TREJO [facility] ORAL DISCONT INUED 08/11/2023 [id number] DOMINIC TREJO 2022 30 [facility] AMLODIPINE BESYLATE 5MG TAB AMLODIPI NE BESYLATE 5MG TAB Disconti nued TAKE ONE TABLET BY MOUTH EVERY DAY FOR BLOOD PRESSURE FOR BLOOD PRESSURE Jan 24, 2023 90 Jan 25, 2024 [id number] Jan 24, 2023 MERCEDEZ LEBRON [facility] ORAL DISCONT INUED 01/25/2024 [id number] ORQUIDEA LEBRON 2022 90 [facility] ANASTROZOLE 1MG TAB ANASTROZ OLE 1MG TAB Disconti nued TAKE ONE TABLET BY MOUTH EVERY DAY FOR BREAST CANCER FOR BREAST CANCER Feb 10, 2023 90 Feb 11, 2024 [id number] Feb 10, 2023 MERCEDEZ LEBRON [facility] ORAL DISCONT INUED 02/11/2024 [id number] ORQUIDEA LEBRON J 2022 90 [facility] ANASTROZOLE 1MG TAB ANASTROZ OLE 1MG TAB Disconti nued TAKE ONE TABLET BY MOUTH EVERY DAY FOR BREAST CANCER FOR BREAST CANCER Aug 10, 2022 30 Aug 11, 2023 [id number] Jan 07, 2023 DOMINIC TREJO [facility] ORAL DISCONT INUED (EDIT) 08/11/2023 [id number] DOMINIC TREJO 2022 30 [facility] APIXABAN 5MG TAB APIXABAN 5MG TAB Active TAKE ONE TABLET BY MOUTH EVERY 12 HOURS TO PREVENT STROKES TO PREVENT STROKES Jul 29, 2023 60 Jul 29, 2024 [id number] Jan 23, 2024 SUZIE NELSON [facility] ORAL ACTIVE 07/29/2024 [id number] Carlos NELSON 2023 60 [facility] APIXABAN 5MG TAB APIXABAN 5MG TAB Disconti nued TAKE ONE TABLET BY MOUTH EVERY 12 HOURS TO PREVENT STROKES TO PREVENT STROKES Jul 14, 2023 60 Aug 13, 2023 [id number] Jul 15, 2023 DOMINIC TREJO [facility] ORAL DISCONT INUED (EDIT) 08/13/2023 [id number] DOMINIC TREJO 2023 60 [facility] ASPIRIN 81MG TAB,CHEWABL E ASPIRIN 81MG TAB,CHEW ABLE Active CHEW ONE TABLET BY MOUTH EVERY DAY Mar 15, 2023 108 Mar 15, 2024 [id number] A Jun 04, 2023 DOMINIC TREJO [facility] ORAL ACTIVE 03/15/2024 [id number] DOMINIC TREJO 2022 108 [facility] ATORVASTATI N CA 80MG TAB ATORVAST ATIN CA 80MG TAB Active TAKE ONE TABLET BY MOUTH EVERY DAY FOR CHOLESTE ROL FOR CHOLESTE ROL Sep 12, 2023 90 Sep 12, 2024 [id number] A Sep 12, 20[facility] 09/12/2024 [id number] DOMINIC TREJO [address] [facility] [address] ATORVASTATI N CA 80MG TAB ATORVAST ATIN CA 80MG TAB Disconti nued TAKE ONE TABLET BY MOUTH EVERY DAY FOR CHOLESTE ROL FOR CHOLESTE ROL Feb 10, 2023 90 Feb 11, 2024 [id number] May 06, 2023 VI,MERCEDEZ NEELA J [facility] ORAL DISCONT INUED 02/11/2024 [id number] VI,ORQUIDEA Gonzalez 2022 90 [facility] ATORVASTATI N CA 80MG TAB ATORVAST ATIN CA 80MG TAB Disconti nued TAKE ONE TABLET BY MOUTH EVERY DAY FOR CHOLESTE ROL FOR CHOLESTE ROL Aug 10, 2022 30 Aug 11, 2023 [id number] Jan 07, 2023 DOMINIC TREJO [facility] ORAL DISCONT INUED (EDIT) 08/11/2023 [id number] DOMINIC TREJO 2022 30 [facility] CALCIUM 250MG/VITAM IN D 125UNT TAB CALCIUM 250MG/ TAMIN D 125UNT TAB Active TAKE 2 TABLETS BY MOUTH EVERY DAY Mar 15, 2023 200 Mar 15, 2024 [id number] May 11, 2023 DOMINIC TREJO [facility] ORAL ACTIVE 03/15/2024 [id number] DOMINIC TREJO 2022 200 [facility] CALCIUM 250MG/VITAM IN D 125UNT TAB CALCIUM 250MG/ TAMIN D 125UNT TAB Disconti nued TAKE 2 TABLETS BY MOUTH EVERY DAY Mar 16, 2022 200 Mar 17, 2023 [id number] Feb 10, 2023 [facility] 03/17/2023 [id number] DOMINIC TREJO 2022 200 [place] [facility] CETIRIZINE HCL 10MG TAB CETIRIZI NE HCL 10MG TAB Active TAKE ONE TABLET BY MOUTH EVERY DAY NEEDED FOR COUGH FOR COUGH Sep 12, 2023 30 Sep 12, 2024 [id number] Sep 12, [address] [facility] 09/12/2024 [id number] DOMINIC TREJO 2023 30 [place] [facility] CHOLECALCIF GAURAV 25MCG (1,000UNIT) TAB CHOLECAL CIFEROL 25MCG (1,000UN IT) TAB Active: Susp TAKE TWO TABLETS BY MOUTH EVERY DAY Sep 12, 2023 200 Sep 12, 2024 [id number] Apr 09, 2024 DOMINIC TREJO [facility] ORAL SUSPEND ED 09/12/2024 [id number] DOMINIC TREJO 2023 200 [facility] CHOLECALCIF GAURAV 25MCG (1,000UNIT) TAB CHOLECAL CIFEROL 25MCG (1,000UN IT) TAB TAKE TWO TABLETS BY MOUTH EVERY DAY Mar 16, 2022 200 Mar 17, 2023 [id number] DOMINIC TREJO [facility] ORAL 03/17/2023 [id number] DOMINIC TREJO 2021 200 [facility] FLUTICASONE PROPIONATE 50MCG/SPRAY SOLN,NASAL, 16GM FLUTICAS ONE PROPIONA TE 50MCG/SP RAY SOLN,ELIN AL,16GM Active SPRAY 2 SPRAYS IN EACH NOSTRIL AT BEDTIME FOR COUGH FOR COUGH Sep 12, 2023 1 Sep 12, 2024 [id number] Sep 12, 2023 DOMINIC TREJO [facility] NASAL ACTIVE 09/12/2024 [id number] DOMINIC TREJO 2023 1 [facility] HYDROCHLORO THIAZIDE 12.5MG TAB HYDROCHL OROTHIAZ JACKIE 12.5MG TAB Disconti nued TAKE ONE TABLET BY MOUTH EVERY DAY FOR BLOOD PRESSURE FOR BLOOD PRESSURE Aug 10, 2022 30 Aug 11, 2023 [id number] Jan 07, 2023 DOMINIC TREJO [facility] ORAL DISCONT INUED (EDIT) 08/11/2023 [id number] DOMINIC TREJO 2022 30 [place] [facility] HYDROCHLORO THIAZIDE 25MG TAB HYDROCHL OROTHIAZ JACKIE 25MG TAB Active TAKE ONE TABLET BY MOUTH EVERY DAY FOR BLOOD PRESSURE FOR BLOOD PRESSURE Sep 12, 2023 90 Sep 12, 2024 [id number] A Nov 17, 2023 DOMINIC TREJO [facility] ORAL ACTIVE 09/12/2024 [id number] DOMINIC TREJO 2023 90 [place] [facility] HYDROCHLORO THIAZIDE 25MG TAB HYDROCHL OROTHIAZ JACKIE 25MG TAB Disconti nued TAKE ONE TABLET BY MOUTH EVERY DAY FOR BLOOD PRESSURE FOR BLOOD PRESSURE Feb 10, 2023 90 Feb 11, 2024 [id number] May 03, 2023 [facility]Z LE[facility] ORAL DISCONT INUED 02/11/2024 [id number] VIORQUIDEA Hubbard 2022 90 [place] [facility] LISINOPRIL 40MG TAB LISINOPR [place] 40MG TAB Active TAKE ONE TABLET BY MOUTH EVERY DAY FOR BLOOD PRESSURE FOR BLOOD PRESSURE Sep 12, 2023 90 Sep 12, 2024 [id number] A Dec 01, 2023 [facility] 09/12/2024 [id number] DOMINIC TREJO 2023 90 [place] [facility] LISINOPRIL 40MG TAB LISINOPR [place] 40MG TAB Disconti nued TAKE ONE TABLET BY MOUTH EVERY DAY FOR BLOOD PRESSURE FOR BLOOD PRESSURE Feb 10, 2023 90 Feb 11, 2024 [id number] May 04, 2023 MERCEDEZ LEBR[facility] ORAL DISCONT INUED 02/11/2024 [id number] VI,ORQUIDEA Gonzalez 2022 90 [place] [facility] LISINOPRIL 40MG TAB LISINOPR [place] 40MG TAB Disconti nued TAKE ONE TABLET BY MOUTH EVERY DAY FOR BLOOD PRESSURE FOR BLOOD PRESSURE Aug 10, 2022 30 Aug 11, 2023 [id number] Jan 07, 2023 [facility]CONT INUED (EDIT) 08/11/2023 [id number] DOMINIC TREJO 2022 30 [place] [facility] METOPROLOL SUCCINATE 25MG TAB,SA METOPROL OL SUCCINAT E 25MG TAB,SA Disconti nued TAKE ONE TABLET BY MOUTH TWICE A DAY FOR BLOOD PRESSURE THESE ARE NEW INSTRUCT IONS FOR BLOOD PRESSURE Jul 14, 2023 180 Jul 14, 2024 [id number] Nov 18, 2023 [facility]CONT [facility] (EDIT) 07/14/2024 [id number] DOMINIC TREJO 2023 180 [place] [facility] METOPROLOL SUCCINATE 50MG TAB,SA METOPROL OL SUCCINAT E 50MG TAB,SA Active TAKE ONE TABLET BY MOUTH TWICE A DAY FOR BLOOD PRESSURE THESE ARE NEW INSTRUCT IONS FOR BLOOD PRESSURE Dec 19, 2023 180 Dec 19, 2024 [id number] Dec 21, 2023 [facility]IC TREJO [facility] ORAL ACTIVE 12/19/2024 [id number] DOMINIC TREJO 2023 180 [place] [facility] METOPROLOL SUCCINATE 50MG TAB,SA METOPROL OL SUCCINAT E 50MG TAB,SA Disconti nued TAKE ONE TABLET BY MOUTH AT BEDTIME FOR BLOOD PRESSURE FOR BLOOD PRESSURE Feb 10, 2023 90 Feb 11, 2024 [id number] May 03, 2023 VI,MERCEDEZ Gonzalez [place] [facility] ORAL DISCONT INUED (EDIT) 02/11/2024 [id number] ORQUIDEA LEBRON 2022 90 [place] [facility] METOPROLOL SUCCINATE 50MG TAB,SA METOPROL OL SUCCINAT E 50MG TAB,SA Disconti nued TAKE ONE TABLET BY MOUTH AT BEDTIME FOR BLOOD PRESSURE FOR BLOOD PRESSURE Aug 10, 2022 30 Aug 11, 2023 [id number] Jan 07, 2023 DOMINIC TREJO [facility] ORAL DISCONT INUED (EDIT) 08/11/2023 [id number] DOMINIC TREJO [address] [facility] OLOPATADINE HCL 0.1% SOLN,OPH OLOPATAD INE HCL 0.1% SOLN,OPH Active INSTILL 1 DROP IN BOTH EYES TWICE A DAY Mar 15, 2023 15 Mar 15, 2024 [id number] May 12, 2023 DOMINIC TREJO [facility] OPHTH[facility] LMIC ACTIVE 03/15/2024 [id number] DOMINIC TREJO 2022 15 [facility] OMEPRAZOLE 20MG CAP,EC OMEPRAZO LE 20MG CAP,EC Active TAKE ONE CAPSULE BY MOUTH TWICE A WEEK ON AN EMPTY STOMACH, AT LEAST 30 MINUTES PRIOR TO A MEAL Dec 30, 2023 24 Dec 30, 2024 [id number] B Feb 14, 2024 DOMINIC TREJO [facility] ORAL ACTIVE 12/30/2024 [id number] DOMINIC TREJO 2023 24 [facility] OMEPRAZOLE 20MG CAP,EC OMEPRAZO LE 20MG CAP,EC Disconti nued TAKE ONE CAPSULE BY MOUTH TWICE A WEEK ON AN EMPTY STOMACH, AT LEAST 30 MINUTES PRIOR TO A MEAL Mar 15, 2023 24 Mar 15, 2024 [id number] A Dec 08, 2023 DOMINIC TREJO [facility] ORAL DISCONT INUED 03/15/2024 [id number] DOMINIC TREJO 2022 24 [facility] SPIRONOLACT ONE 25MG TAB SPIRONOL ACTONE 25MG TAB Active TAKE ONE TABLET BY MOUTH EVERY DAY FOR BLOOD PRESSURE FOR BLOOD PRESSURE Nov 15, 2023 90 Nov 15, 2024 [id number] Feb 10, 2024 DOMINIC TREJO [facility] ORAL ACTIVE 11/15/2024 [id number] DOMINIC TREJO 2023 90 [facility] Immunizations Combined list of available immunizations from the Department of Defense and Veterans Affairs facilities. Immunization Series Date Given Administered By Site Reaction Lot Number CVX Code Drug Systems Developer Status Comments Source INFLUENZA VACCINE, QUADRIVALENT, ADJUVANTED 2022 205 complet [facility] COVID-19 (MODERNA), MRNA, LNP-S, PF, 50 MCG/0.5 ML (AGES 12+ YEARS) 2022 312 complet [facility] COVID-19 (PFIZER), MRNA, LNP-S, BIVALENT BOOSTER, PF, 30 MCG/0.3 ML DOSE 1 2022 TAMI [place] RIGHT DELTO ID [id number] 300 complet [facility] COVID-19 (MODERNA), MRNA, LNP-S, BIVALENT, PF, 50 MCG/0.5 ML OR 25MCG/0.25 ML DOSE 2021 229 complet [facility] INFLUENZA, UNSPECIFIED FORMULATION 2021 88 complet [facility] INFLUENZA, HIGH-DOSE, QUADRIVALENT 2021 197 complet [facility] COVID-19 (MODERNA), MRNA, LNP-S, PF, 100 MCG/0.5ML DOSE OR 50 MCG/0.25ML DOSE 2021 207 complet [facility] COVID-19 (MODERNA), MRNA, LNP-S, PF, 100 MCG/0.5ML DOSE OR 50 MCG/0.25ML DOSE 3 2020 207 complet [facility] INFLUENZA, HIGH-DOSE, QUADRIVALENT 2020 197 complet [facility] INFLUENZA, UNSPECIFIED FORMULATION 2020 88 complet [facility] COVID-19 (MODERNA), MRNA, LNP-S, PF, 100 MCG/0.5 ML DOSE 2 2020 207 complet [facility] COVID-19 (MODERNA), MRNA, LNP-S, PF, 100 MCG/0.5 ML DOSE 1 2020 207 complet [facility] INFLUENZA, INJECTABLE, QUADRIVALENT, PRESERVATIVE FREE 2019 150 complet ed [facility] INFLUENZA, UNSPECIFIED FORMULATION 2019 88 complet ed [facility] INFLUENZA, HIGH DOSE SEASONAL 2018 135 complet ed [facility] ZOSTER RECOMBINANT 2 2018 187 complet ed per [facility] ZOSTER RECOMBINANT 1 2018 187 complet ed per [facility] INFLUENZA, HIGH DOSE SEASONAL 2017 135 complet ed [facility] INFLUENZA, HIGH DOSE SEASONAL 2016 135 complet ed [facility] INFLUENZA, HIGH DOSE SEASONAL 2015 135 complet ed [facility] PNEUMOCOCCAL CONJUGATE PCV 13 2014 133 complet ed per [facility] INFLUENZA, UNSPECIFIED FORMULATION 2014 88 complet ed [facility] TDAP 2014 115 complet ed per [facility] INFLUENZA, SEASONAL, INJECTABLE 2010 141 complet ed [facility] INFLUENZA, SEASONAL, INJECTABLE, PRESERVATIVE FREE 2009 140 complet ed [facility] ZOSTER LIVE 2009 121 complet ed [facility] PNEUMOCOCCAL POLYSACCHARID E PPV23 2009 33 complet ed [facility] PNEUMOCOCCAL, UNSPECIFIED FORMULATION 2009 109 complet ed [facility] NOVEL INFLUENZA-H1N 1-09, ALL FORMULATIONS 2008 128 complet ed [facility] TD (ADULT), 2 LF TETANUS TOXOID, PRESERVATIVE FREE, ADSORBED 2008 09 complet ed [facility] INFLUENZA, UNSPECIFIED FORMULATION 2008 88 complet ed [facility] INFLUENZA, SEASONAL, INJECTABLE 2007 141 complet ed [facility] INFLUENZA, SEASONAL, INJECTABLE 2001 141 complet ed [facility] INFLUENZA, SEASONAL, INJECTABLE 2000 141 complet ed [facility] Results Combined list of recent chemistry, [...] Mar 17, 2023 04:58 PM Reporting Lab: [facility] [phone] Performing Lab: [facility] [address] [place] [facility] LIPID PANEL,NON -FASTING CHOLESTEROL [MASS/VOLUM E] IN SERUM OR PLASMA 210 mg/dL <199 - 199 09/11 H Specimen Type: PLASMA No comment entered. Ordering Provider: HARRIS TREJO Report Released Date/Time: Mar 17, 2023 04:58 PM Reporting Lab: [facility] [address] Performing Lab: [facility] [address] [place] [facility] LIPID PANEL,NON -FASTING CHOLESTEROL IN HDL [MASS/VOLUM E] IN SERUM OR PLASMA 63 mg/dL 50 09/11 Specimen Type: PLASMA No comment entered. Ordering Provider: HARRIS TREJO Report Released Date/Time: Mar 17, 2023 04:58 PM Reporting Lab: [facility] [address] Performing Lab: [facility] [address] [place] [facility] LIPID PANEL,NON -FASTING CHOLESTEROL IN LDL [MASS/VOLUM E] IN SERUM OR PLASMA BY CALCULATION 121 mg/dL <99 - 99 09/11 H Specimen Type: PLASMA No comment entered. Ordering Provider: HARRIS TREJO Report Released Date/Time: Mar 17, 2023 04:58 PM Reporting Lab: [facility] [address] Performing Lab: [facility] [address] [place] [facility] LIPID PANEL,NON -FASTING CHOLESTEROL IN VLDL [MASS/VOLUM E] IN SERUM OR PLASMA BY CALCULATION 26 mg/dL <29 - 29 09/11 Specimen Type: PLASMA No comment entered. Ordering Provider: HARRIS TREJO Report Released Date/Time: Mar 17, 2023 04:58 PM Reporting Lab: [facility] [address] Performing Lab: [facility] [address] [place] [facility] LIPID PANEL,NON -FASTING CHOLESTEROL NON HDL [MASS/VOLUM E] IN SERUM OR PLASMA 147 mg/dL <129 - 129 09/11 H Specimen Type: PLASMA No comment entered. Ordering Provider: HARRIS TREJO Report Released Date/Time: Mar 17, 2023 04:58 PM Reporting Lab: [facility] [address] Performing Lab: [facility] [address] [place] [facility] LIPID PANEL,NON -FASTING TRIGLYCERID E [MASS/VOLUM E] IN SERUM OR PLASMA 132 mg/dL <149 - 149 09/11 Specimen Type: PLASMA No comment entered. Ordering Provider: HARRIS TREJO Report Released Date/Time: Mar 17, 2023 04:58 PM Reporting Lab: [facility] [address] Performing Lab: [facility] [address] [place] [facility] BASIC METABOLIC PANEL+MG CREATININE [MASS/VOLUM E] IN SERUM OR PLASMA 0.6 mg/dL 0.5 - 1.0 09/11 Specimen Type: PLASMA No comment entered. Ordering Provider: HARRIS TREJO Report Released Date/Time: Mar 17, 2023 04:58 PM Reporting Lab: [facility] [address] Performing Lab: [facility] [address] [place] [facility] BASIC METABOLIC PANEL+MG UREA NITROGEN [MASS/VOLUM E] IN SERUM OR PLASMA 7 mg/dL 7 - 20 09/11 Specimen Type: PLASMA No comment entered. Ordering Provider: HARRIS TREJO Report Released Date/Time: Mar 17, 2023 04:58 PM Reporting Lab: [facility] [address] Performing Lab: [facility] [address] [place] [facility] BASIC METABOLIC PANEL+MG GLUCOSE [MASS/VOLUM E] IN SERUM OR PLASMA 98 mg/dL 70 - 100 09/11 Specimen Type: PLASMA No comment entered. Ordering Provider: HARRIS TREJO Report Released Date/Time: Mar 17, 2023 04:58 PM Reporting Lab: [facility] [address] Performing Lab: [facility] [address] [place] [facility] BASIC METABOLIC PANEL+MG SODIUM [MOLES/VOLU ME] IN SERUM OR PLASMA 139 mmol/L 136 - 145 09/11 Specimen Type: PLASMA No comment entered. Ordering Provider: HARRIS TREJO Report Released Date/Time: Mar 17, 2023 04:58 PM Reporting Lab: [facility] [id number] Performing Lab: [facility] [id number] [place] [facility] BASIC METABOLIC PANEL+MG POTASSIUM [MOLES/VOLU ME] IN SERUM OR PLASMA 3.5 mmol/L 3.5 - 5.1 09/11 Specimen Type: PLASMA No comment entered. Ordering Provider: HARRIS TREJO Report Released Date/Time: Mar 17, 2023 04:58 PM Reporting Lab: [facility] [facility] [address] Performing Lab: [facility] [address] [place] [facility] BASIC METABOLIC PANEL+MG CHLORIDE [MOLES/VOLU ME] IN SERUM OR PLASMA 104 mmol/L 98 - 107 09/11 Specimen Type: PLASMA No comment entered. Ordering Provider: HARRIS TREJO Report Released Date/Time: Mar 17, 2023 04:58 PM Reporting Lab: [facility] [address] Performing Lab: [facility] [address] [place] [facility] BASIC METABOLIC PANEL+MG CARBON DIOXIDE, TOTAL [MOLES/VOLU ME] IN SERUM OR PLASMA 29 mmol/L 22 - 29 09/11 Specimen Type: PLASMA No comment entered. Ordering Provider: HARRIS TREJO Report Released Date/Time: Mar 17, 2023 04:58 PM Reporting Lab: [facility] [address] Performing Lab: [facility] [address] [place] [facility] BASIC METABOLIC PANEL+MG CALCIUM [MASS/VOLUM E] IN SERUM OR PLASMA 8.9 mg/dL 8.4 - 10.2 09/11 Specimen Type: PLASMA No comment entered. Ordering Provider: HARRIS TREJO Report Released Date/Time: Mar 17, 2023 04:58 PM Reporting Lab: [facility] [address] Performing Lab: [facility] [address] [place] [facility] BASIC METABOLIC PANEL+MG MAGNESIUM [MASS/VOLUM E] IN SERUM OR PLASMA 1.8 mg/dL 1.6 - 2.6 09/11 Specimen Type: PLASMA No comment entered. Ordering Provider: HARRIS TREJO Report Released Date/Time: Mar 17, 2023 04:58 PM Reporting Lab: [facility] [address] Performing Lab: [facility] [address] [place] [facility] BASIC METABOLIC PANEL+MG ANION GAP IN SERUM OR PLASMA 6 mmol/L 5 - 15 09/11 Specimen Type: PLASMA No comment entered. Ordering Provider: HARRIS TREJO Report Released Date/Time: Mar 17, 2023 04:58 PM Reporting Lab: [facility] [address] Performing Lab: [facility] [address] [place] [facility] BASIC METABOLIC PANEL+MG GLOMERULAR FILTRATION RATE/1.73 SQ M.PREDICTED [VOLUME RATE/AREA] IN SERUM, PLASMA OR BLOOD BY CREATININE- BASED FORMULA (CKD-EPI 2020) 86 60 09/11 Specimen Type: PLASMA No comment entered. Ordering Provider: HARRIS TREJO Report Released Date/Time: Mar 17, 2023 04:58 PM Reporting Lab: [facility] [address] Performing Lab: [facility] [address] [place] [facility] CREATININ E(INCLUDE S EGFR) CREATININE [MASS/VOLUM E] IN SERUM OR PLASMA 0.7 mg/dL 0.5 - 1.0 08/08 Specimen Type: PLASMA No comment entered. Ordering Provider: CHANG NELSON IE A Report Released Date/Time: Jul 29, 2023 11:58 AM Reporting Lab: [facility] [address] Performing Lab: [facility] [address] [place] [facility] CREATININ E(INCLUDE S EGFR) GLOMERULAR FILTRATION RATE/1.73 SQ M.PREDICTED [VOLUME RATE/AREA] IN SERUM, PLASMA OR BLOOD BY CREATININE- BASED FORMULA (CKD-EPI 2020) 83 60 08/08 Specimen Type: PLASMA No comment entered. Ordering Provider: CHANG NELSON IE A Report Released Date/Time: Jul 29, 2023 11:58 AM Reporting Lab: [facility] [address] Performing Lab: [facility] [address] [place] [facility] CBC LEUKOCYTES [#/VOLUME] IN BLOOD BY AUTOMATED COUNT 5.92 10*3/u L 4.0 - 11.0 08/08 Specimen Type: BLOOD No comment entered. Ordering Provider: CHANG NELSON IE A Report Released Date/Time: Jul 29, 2023 11:58 AM Reporting Lab: [facility] [address] Performing Lab: [facility] [address] [place] [facility] CBC ERYTHROCYTE S [#/VOLUME] IN BLOOD BY AUTOMATED COUNT 4.72 10*6/u L 4.0 - 5.4 08/08 Specimen Type: BLOOD No comment entered. Ordering Provider: CHANG NELSON IE A Report Released Date/Time: Jul 29, 2023 11:58 AM Reporting Lab: [facility] [address] Performing Lab: [facility] [address] [place] [facility] CBC HEMOGLOBIN [MASS/VOLUM E] IN BLOOD 13.9 g/dL 11.5 - 16 08/08 Specimen Type: BLOOD No comment entered. Ordering Provider: CHANG NELSON IE A Report Released Date/Time: Jul 29, 2023 11:58 AM Reporting Lab: [facility] [address] Performing Lab: [facility] [address] [place] [facility] CBC HEMATOCRIT [VOLUME FRACTION] OF BLOOD BY AUTOMATED COUNT 40.3 34.5 - 48 08/08 Specimen Type: BLOOD No comment entered. Ordering Provider: CHANG NELSON IE A Report Released Date/Time: Jul 29, 2023 11:58 AM Reporting Lab: [facility] [address] Performing Lab: [facility] [address] [place] [facility] CBC MCV [ENTITIC VOLUME] BY AUTOMATED COUNT 85.4 fL 80 - 100 08/08 Specimen Type: BLOOD No comment entered. Ordering Provider: CHANG NELSON IE A Report Released Date/Time: Jul 29, 2023 11:58 AM Reporting Lab: [facility] [address] Performing Lab: [facility] [address] [place] [facility] CBC MCH [ENTITIC MASS] BY AUTOMATED COUNT 29.4 pg 27 - 33 08/08 Specimen Type: BLOOD No comment entered. Ordering Provider: CHANG NELSON IE A Report Released Date/Time: Jul 29, 2023 11:58 AM Reporting Lab: [facility] [address] Performing Lab: [facility] [address] [place] [facility] CBC MCHC [MASS/VOLUM E] BY AUTOMATED COUNT 34.5 g/dL 32.0 - 37.5 08/08 Specimen Type: BLOOD No comment entered. Ordering Provider: CHANG NELSON IE A Report Released Date/Time: Jul 29, 2023 11:58 AM Reporting Lab: [facility] [address] Performing Lab: [facility] [address] [place] [facility] CBC PLATELETS [#/VOLUME] IN BLOOD BY AUTOMATED COUNT 211 10*3/u L 150 - 400 08/08 Specimen Type: BLOOD No comment entered. Ordering Provider: CHANG NELSON IE A Report Released Date/Time: Jul 29, 2023 11:58 AM Reporting Lab: [facility] [address] Performing Lab: [facility] [address] [place] [facility] CBC PLATELET MEAN VOLUME [ENTITIC VOLUME] IN BLOOD BY AUTOMATED COUNT 9.2 fL 7.4 - 10.4 08/08 Specimen Type: BLOOD No comment entered. Ordering Provider: CHANG NELSON IE A Report Released Date/Time: Jul 29, 2023 11:58 AM Reporting Lab: [facility] [address] Performing Lab: [facility] [address] [place] [facility] CBC ERYTHROCYTE DISTRIBUTIO N WIDTH [RATIO] BY AUTOMATED COUNT 13.3 11.5 - 14.5 08/08 Specimen Type: BLOOD No comment entered. Ordering Provider: CHANG NELSON IE A Report Released Date/Time: Jul 29, 2023 11:58 AM Reporting Lab: [facility] [address] Performing Lab: [facility] [address] [place] [facility] AST/SGOT ASPARTATE AMINOTRANSF ERASE [ENZYMATIC ACTIVITY/VO LUME] IN SERUM OR PLASMA 28 U/L <34 - 34 08/08 Specimen Type: PLASMA No comment entered. Ordering Provider: CHANG NELSON IE A Report Released Date/Time: Jul 29, 2023 11:58 AM Reporting Lab: [facility] [address] Performing Lab: [facility] [address] [facility] ALT/SGPT ALANINE AMINOTRANSF ERASE [ENZYMATIC ACTIVITY/VO LUME] IN SERUM OR PLASMA 21 U/L <55 - 55 08/08 Specimen Type: PLASMA No comment entered. Ordering Provider: CHANG NELSON IE A Report Released Date/Time: Jul 29, 2023 11:58 AM Reporting Lab: [facility] [address] Performing Lab: [facility] [address] [place] [facility] BASIC METABOLIC PANEL+MG CREATININE [MASS/VOLUM E] IN SERUM OR PLASMA 0.6 mg/dL 0.5 - 1.0 03/15 Specimen Type: PLASMA No comment entered. Ordering Provider: MARIMAR LEBRON Report Released Date/Time: Feb 10, 2023 09:08 AM Reporting Lab: [facility] [address] Performing Lab: [facility] [address] [place] [facility] BASIC METABOLIC PANEL+MG UREA NITROGEN [MASS/VOLUM E] IN SERUM OR PLASMA 9 mg/dL 7 - 20 03/15 Specimen Type: PLASMA No comment entered. Ordering Provider: MARIMAR LEBRON Report Released Date/Time: Feb 10, 2023 09:08 AM Reporting Lab: [facility] [address] Performing Lab: [facility] [address] [place] [facility] BASIC METABOLIC PANEL+MG GLUCOSE [MASS/VOLUM E] IN SERUM OR PLASMA 106 mg/dL 70 - 100 03/15 H Specimen Type: PLASMA No comment entered. Ordering Provider: MARIMAR LEBRON Report Released Date/Time: Feb 10, 2023 09:08 AM Reporting Lab: [facility] [address] Performing Lab: [facility] [address] [place] [facility] BASIC METABOLIC PANEL+MG SODIUM [MOLES/VOLU ME] IN SERUM OR PLASMA 138 mmol/L 136 - 145 03/15 Specimen Type: PLASMA No comment entered. Ordering Provider: MARIMAR LEBRON Report Released Date/Time: Feb 10, 2023 09:08 AM Reporting Lab: [facility] [address] Performing Lab: [facility] [address] [place] [facility] BASIC METABOLIC PANEL+MG POTASSIUM [MOLES/VOLU ME] IN SERUM OR PLASMA 3.4 mmol/L 3.5 - 5.1 03/15 L Specimen Type: PLASMA No comment entered. Ordering Provider: MARIMAR LEBRON Report Released Date/Time: Feb 10, 2023 09:08 AM Reporting Lab: [facility] [address] Performing Lab: [facility] [address] [place] [facility] BASIC METABOLIC PANEL+MG CHLORIDE [MOLES/VOLU ME] IN SERUM OR PLASMA 103 mmol/L 98 - 107 03/15 Specimen Type: PLASMA No comment entered. Ordering Provider: MARIMAR LEBRON Report Released Date/Time: Feb 10, 2023 09:08 AM Reporting Lab: [facility] [address] Performing Lab: [facility] [address] [place] [facility] BASIC METABOLIC PANEL+MG CARBON DIOXIDE, TOTAL [MOLES/VOLU ME] IN SERUM OR PLASMA 28 mmol/L 22 - 29 03/15 Specimen Type: PLASMA No comment entered. Ordering Provider: MARIMAR LEBRON Report Released Date/Time: Feb 10, 2023 09:08 AM Reporting Lab: [facility] [address] Performing Lab: [facility] [address] [place] [facility] BASIC METABOLIC PANEL+MG CALCIUM [MASS/VOLUM E] IN SERUM OR PLASMA 9.3 mg/dL 8.4 - 10.2 03/15 Specimen Type: PLASMA No comment entered. Ordering Provider: MARIMAR LEBRON Report Released Date/Time: Feb 10, 2023 09:08 AM Reporting Lab: [facility] [address] Performing Lab: [facility] [address] [place] [facility] BASIC METABOLIC PANEL+MG MAGNESIUM [MASS/VOLUM E] IN SERUM OR PLASMA 1.8 mg/dL 1.6 - 2.6 03/15 Specimen Type: PLASMA No comment entered. Ordering Provider: MARIMAR LEBRON Report Released Date/Time: Feb 10, 2023 09:08 AM Reporting Lab: [facility] [address] Performing Lab: [facility] [address] [place] [facility] BASIC METABOLIC PANEL+MG ANION GAP IN SERUM OR PLASMA 7 mmol/L 5 - 15 03/15 Specimen Type: PLASMA No comment entered. Ordering Provider: MARIMAR LEBRON Report Released Date/Time: Feb 10, 2023 09:08 AM Reporting Lab: [facility] [address] Performing Lab: [facility] [address] [place] [facility] BASIC METABOLIC PANEL+MG GLOMERULAR FILTRATION RATE/1.73 SQ M.PREDICTED [VOLUME RATE/AREA] IN SERUM, PLASMA OR BLOOD BY CREATININE- BASED FORMULA (CKD-EPI 2020) 86 60 03/15 Specimen Type: PLASMA No comment entered. Ordering Provider: MARIMAR LEBRON Report Released Date/Time: Feb 10, 2023 09:08 AM Reporting Lab: [facility] [address] Performing Lab: [facility] [address] [facility] TSH W/REFLEX TO FREE T4 THYROTROPIN [UNITS/VOLU ME] IN SERUM OR PLASMA 0.61 u[IU]/ mL 0.35 - 4.94 03/15 Specimen Type: PLASMA No comment entered. Ordering Provider: HARRIS TREJO Report Released Date/Time: Mar 16, 2022 11:04 AM Reporting Lab: [facility] [address] Performing Lab: [facility] [address] [facility] Vital Signs Combined list of inpatient and outpatient Vital Signs from Department of Defense and Veterans Affairs, ranging from 12 months to all on record, depending upon the facility. Vital Sign Value Date Comments Source SYSTOLIC BLOOD PRESSURE 154 12/19/2023 09:00:55 [facility] DIASTOLIC BLOOD PRESSURE 82 12/19/2023 09:00:55 [facility] PULSE OXIMETRY 97 12/19/2023 09:00:55 [facility] PAIN 0 12/19/2023 09:00:55 [facility] TEMPERATURE 98.1 12/19/2023 09:00:55 [facility] PULSE 66 12/19/2023 09:00:55 [facility] RESPIRATION 18 12/19/2023 09:00:55 [facility] SYSTOLIC BLOOD PRESSURE 178 11/14/2023 09:43:24 [facility] DIASTOLIC BLOOD PRESSURE 75 11/14/2023 09:43:24 [facility] PULSE OXIMETRY 98 11/14/2023 09:43:24 [facility] WEIGHT 157.8 11/14/2023 09:43:24 [facility] BMI 30kg/m2 11/14/2023 09:43:24 [facility] PAIN 0 11/14/2023 09:43:24 [facility] HEIGHT 61 11/14/2023 09:43:24 [facility] PULSE 67 11/14/2023 09:43:24 [facility] RESPIRATION 16 11/14/2023 09:43:24 [facility] SYSTOLIC BLOOD PRESSURE 151 09/12/2023 10:46:47 [facility] DIASTOLIC BLOOD PRESSURE 83 09/12/2023 10:46:47 [facility] PULSE OXIMETRY 97 09/12/2023 10:46:47 [facility] WEIGHT 164.9 09/12/2023 10:46:47 [facility] BMI 32kg/m2 09/12/2023 10:46:47 [facility] PAIN 0 09/12/2023 10:46:47 [facility] HEIGHT 60.5 09/12/2023 10:46:47 [facility] PULSE 93 09/12/2023 10:46:47 [facility] RESPIRATION 16 09/12/2023 10:46:47 [facility] SYSTOLIC BLOOD PRESSURE 136 08/09/2023 10:51:35 [facility] DIASTOLIC BLOOD PRESSURE 78 08/09/2023 10:51:35 [facility] PULSE OXIMETRY 97 08/09/2023 10:51:35 [facility] PAIN 0 08/09/2023 10:51:35 [facility] TEMPERATURE 97.8 08/09/2023 10:51:35 [facility] PULSE 68 08/09/2023 10:51:35 [facility] RESPIRATION 16 08/09/2023 10:51:35 [facility] SYSTOLIC BLOOD PRESSURE 135 07/14/2023 13:14:16 [facility] DIASTOLIC BLOOD PRESSURE 79 07/14/2023 13:14:16 [facility] PULSE OXIMETRY 96 07/14/2023 13:14:16 [facility] WEIGHT 163.5 07/14/2023 13:14:16 [facility] BMI 31kg/m2 07/14/2023 13:14:16 [facility] PAIN 0 07/14/2023 13:14:16 [facility] PULSE 65 07/14/2023 13:14:16 EVIN NIETO [facility] RESPIRATION 16 07/14/2023 13:14:16 RAD LEE [facility] Encounters Combined list of: 1) Encounters from Department of Veterans Affairs facilities going back up to thelast 18 months. 2) Encounters from the Department of Defense facilities going back up to 280 months. Location Location Details Encounter Type Encounter Number Reason For Visit Attending Provider ADM Date DC Date Status Disposition Source [place] [facility] Outpatient Encounter [id number] 10/11 [facility] [place] [facility] Outpatient Encounter [id number] DIP[facility] RODRIGUES [facility] OFFICE O/P EST LOW 20-29 MIN [id number] Diagnos is: ICD-10- CM M25.572 Pain in left ankle and joints of left foot
Carlos TREJO 10/18 [facility] ORTHC/PROS TC MGMT SBSQ ENC [id number] Diagnos is: ICD-10- CM M25.571 Pain in right ankle and joints of right foot
WIL BUSTAMANTE DE Flaco 10/18 [facility] OFF/OP EST MAY X REQ PHY/QHP [id number] Diagnos is: ICD-10- CM M25.572 Pain in left ankle and joints of left foot
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< br/> BRITANY RAMIREZ 01/07 [place] [facility] [place] [facility] Outpatient Encounter [id number] 01/10 [place] [facility] [place] [facility] Outpatient Encounter [id number] GILDARDO HERRON 01/12 [place] [facility] [place] [facility] Outpatient Encounter [id number] 01/13 [place] [facility] [place] [facility] Outpatient Encounter [id number] Trini ELY 01/18 [place] [facility] [place] [facility] Outpatient Encounter [id number] 01/24 [place] [facility] [place] [facility] Outpatient Encounter [id number] MARKY PENDLETON 01/25 [place] [facility] [place] [facility] OFFICE O/P EST MOD 30-39 MIN [id number] Diagnos is: ICD-10- CM 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
HOPE THORNE E 05/[address] [facility] OFF/OP EST MAY X REQ PHY/QHP [id number] Diagnos is: ICD-10- CM L98.9 Disorde r of the skin and subcuta neous tissue, 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
KYLE SEARS 05/[address] [facility] OFF/OP EST MAY X REQ PHY/QHP [id number] Diagnos is: ICD-10- CM Z71.9 Rn Office ing, 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
PEGG,MICHAEL ORLY 05/[address] 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
HOPE THORNE E 05/[address] [facility] Outpatient [facility]counter [id number] 05/[address] 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
DANI CALLAHAN 05/[address] [facility] [place] [facility] Outpatient Encounter [id number] 05/[address] [facility] Outpatient Encounter [id number] CRISPIN PARADA RLOS A 05/[address] [facility] OFF/OP EST SEPTEMBER X REQ PHY/QHP [id number] Diagnos is: ICD-10- CM Z48.02 Encount er for removal of sutures
POST,CRYST AL L 05/[address] [facility] Outpatient Encounter [id number] 05/[address] [facility] Outpatient Encounter [id number] 06/[address] [facility] Outpatient Encounter [id number] 06/[address] [facility] HC PRO PHONE CALL 11-20 MIN [id number] Diagnos is: ICD-10- CM Z71.9 Rn Office ing, 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
VANEGAS,TRA CY L 06/[address] [facility] Outpatient Encounter [id number] 06/[address] [facility] Outpatient Encounter [id number] 06/[address] [facility] Outpatient Encounter [id number] 06/25 [facility] OFFICE O/P EST MOD 30 MIN [id number] Diagnos is: ICD-10- CM D48.5 Neoplas m of uncerta in behavio r of skin
FELIPA,N OAH I 06/[address] [facility] Outpatient Encounter [id number] HEMMARVIN SAPPIOS P 06/[address] [facility] Outpatient Encounter [id number] 06/[address] [facility] Outpatient Encounter [id number] 07/[address] [facility] Outpatient Encounter [id number] 07/12 [facility] ECG MONIT/REPR T UP TO 48 HRS [id number] Diagnos is: ICD-10- CM Z13.6 Encount er for screeni ng for cardiov ascular disorde rs
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
HOPE THORNE UREN E 08/[address] [facility] [place] [facility] EXT ECG>7D<15D REV&INTERP J [id number] Diagnos is: ICD-10- CM I47.10 Suprave ntricul ar tachyca rdia, 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
ERIN,BRADL EY A 08/[address] [facility] [place] [facility] Outpatient Encounter [id number] 08/[address] [facility] [place] [facility] Outpatient Encounter [id number] 08/13 [facility] [place] [facility] Outpatient Encounter [id number] 08/29 [facility] [place] [facility] Outpatient Encounter [id number] 08/31 [facility] [place] [facility] Outpatient Encounter [id number] 09/01 [facility] [place] [facility] OFF[place] O/P EST MOD 30 MIN [id number] Diagnos is: ICD-10- CM I48.91 Unspeci fied atrial fibrill ation<b r/> Carlos TREJO ILL M 09/[address] [facility] [place] [facility] Outpatient Encounter [id number] 09/[address] [facility] [place] [facility] Outpatient Encounter [id number] 09/[address] [facility] [place] [facility] Outpatient Encounter [id number] 09/[address] [facility] [place] [facility] Outpatient Encounter [id number] 09/21 [place] [facility] [place] [facility] Outpatient Encounter [id number] 09/25 [place] [facility] [place] [facility] Outpatient Encounter [id number] 10/02 [place] [facility] [place] [facility] Outpatient Encounter [id number] 10/10 [place] [facility] [place] [facility] Outpatient Encounter [id number] 11/03 [place] [facility] [place] [facility] Outpatient Encounter [id number] 11/06 [place] [facility] [place] [facility] OFFICE O/P EST HI 40 MIN [id number] Diagnos is: ICD-10- CM R41.81 Age-rel ated cogniti ve decline
Carlos TREJO ILL M 11/[address] 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
SISI CALL M 11/[address] 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 [place] [facility] Outpatient Encounter [id number] GURWINDER CRAFT SE 11/[address] [facility] [place] [facility] Outpatient Encounter [id number] DEIDRE SHEA 12/[address] 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
Jeana GAMING R 12/21 [facility] Outpatient Encounter [id number] 01/02 [facility] HEARING AID REPAIR/MOD IFYING [id number] Diagnos is: ICD-10- CM H90.3 Sensori neural hearing loss, bilater al
HORACE BURDICK RTHA R 01/11 [facility] Social History Combined list of available smoking, tobacco, and other social history from Department of Defense and [facility] Affairs facilities. Social History Type Response Date Comment Sourc e Tobacco smoking status [facility]-TOBACCO NEVER USED 09/12/2023 [facility] of [facility] History of tobacco use AL-TOBACCO NEVER USED 09/28/2021 [facility] History of tobacco use AL-TOBACCO NEVER USED 11/10/2020 [facility] Plan of Care List of future care activities from [facility] Affairs facilities. Additional future care activities may be listed in the Assessment and Plan section. Date/Time Care Activity Care Activity Detail Facili ty 03/06/2024 AMBULATORY - NONE AMBULATORY - NONE [facility] 03/06/2024 AMBULATORY - MEDICINE AMBULATORY - MEDICI [facility] 03/08/2024 AMBULATORY - NONE AMBULATORY - NONE [facility] 03/27/2024 AMBULATORY - REHAB MEDICINE AMBULATORY - REHAB MEDICINE [facility] 05/14/2024 AMBULATORY - SURGERY AMBULATORY - SURGERY [facility] 02/14/2024 Consult Order COMMUNITY CARE-G EC SKILLED HOME CARE Cons Wedding Florist's Choice [facility] 03/10/2024 Laboratory - Chemistry Order BAS IC METABOLIC PANEL+MG PLASMA SP [facility] 03/10/2024 Laboratory - Chemistry Order HEMOGLOBIN A 1C BLOOD SP [facility] 03/10/2024 Laboratory - Chemistry Order LIP ID PANEL,NON-FASTING PLASMA SP [facility] 03/10/2024 Laboratory - Chemistry Order TSH W/REFLEX TO FREE T4 PLASMA SP ONCE [facility] 03/10/2024 Laboratory - Chemistry Order CBC BLOOD SP [facility]
--- OUTSIDE RECORDS SUMMARY | 2024-02-17 16:49 | XMS_ITS | Encounter Summary ---
Author Name [facility] [place] Organization [facility] [place] [facility] [place] Address [address] [place] [address] Care Team Providers Care Roll Hauler Name Role Phone DOMINIC TREJO Primary Care Provider Unav ailable Insurance [...] Patient's Relationship to Policy [facility] ([id number]) PRESCRIPT ION GEHA May 30, 2005 [id number] [phone] SONIA MOBLEY PATIENT GEHA (SECONDARY ) PREFERRED PROVIDER ORGANIZAT ION (PPO) GEHA A&B PRIMA RY May 30, 2005 [id number] [phone] SONIA MOBLEY PATIENT GEHA (SECONDARY ) PREFERRED PROVIDER ORGANIZAT ION (PPO) GEHA A/B PRIMA RY May 30, 2005 [id number] SONIA MOBLEY PATIENT [facility] PREFERRED PROVIDER ORGANIZAT ION (PPO) DO NOT USE May 30, 2005 [id number] TONI BRITO PATIENT MEDICARE (WNR) MEDICARE (M) PART A Jan 29, 2000 PART A [id number] [phone] SONIA MOBLEY PATIENT MEDICARE (WNR) MEDICARE (M) PART B Jan 29, 2000 PART B [id number] [phone] SONIA MOBLEY PATIENT Selected Encounter This section includes the information on record at [place] for the Encounter. Date/Time Encounter Type Encounter Description Reason Provider Source Jun 28, 2023 10:40 AM OFFICE O/P EST MOD 30 MIN DERMATOLOGY ICD-10-CM D48.5 Neoplasm of uncertain behavior of skin KANA MORTENSEN Encounter Template Text not used by [place] Assessments - Encounter Diagnoses This section includes the primary and secondary diagnoses documented for the Encounter. Date/Time Primary/Secondary Diagnosis Diagnosis Name Provider Source Jul 07, 2023 01:12 PM PRIMARY Neoplasm of uncertain behavior of skin [facility] Jul 07, 2023 01:12 PM SECONDARY Inflamed seborrheic keratosis [facility] Jul 07, 2023 01:12 PM SECONDARY Other benign neoplasm of skin, unspecified [facility] Plan of Treatment: Future Appointments (+ 6 months) and Future Tests (+/- 45 days) The Plan of Treatment section includes future care activities for the patient [facility] This section includes future appointments and future orders which are active, pending or scheduled. Future Appointments This section includes appointments that were scheduled to occur 6 months from the date of the Encounter, up to a maximum of 20 appointments. The data comes from all [place] treatment [facility]. Appointment Date/Time Appointment Type Appointme nt Facility Name Jul 14, 2023 08:00 AM AMBULATORY - MEDICINE [facility] Jul 14, 2023 01:15 PM AMBULATORY - MEDICINE [facility] Aug 03, 2023 07:01 AM [place] [facility] Aug 09, 2023 10:30 AM AMBULATORY - NONE [facility] Aug 09, 2023 11:00 AM AMBULATORY - REHAB MEDICIN E [facility] Sep 09, 2023 08:00 AM [place] [facility] Sep 12, 2023 09:30 AM [facility] Sep 12, 2023 10:30 AM [facility] Sep 26, 2023 09:00 AM AMBULATORY - SURGERY [facility] Nov 14, 2023 10:00 [facility] Nov 14, 2023 10:30 [facility] Nov 22, 2023 09:20 AM AMBULATORY - SURGERY [facility] Dec 19, 2023 09:00 AM AMBULATORY - REHAB MEDICIN E [facility] Dec 22, 2023 08:30 AM [facility] Social History: [...] 18, 2022 10:00 AM [facility]-TO[facility]ACCO NEVER USED [facility] Tobacco Use History This section includes a history of the smoking, or tobacco-related health factors, that were collected on or before the date of the Encounter. The data comes from the [place] facility where the Encounter took place. Date/Time Smoking Status/Tobacco Use Comment F acnelia September 28, 2021 09:30 AM [facility]-TOBACCO NEVER USED [facility] Nov 10, 2020 08:30 AM VA-TOBACCO NEVER USED [facility] Radiology Reports: +/- 30 days of the [...] 2023 09:13 AM MRI-BRAIN (P): ALICE MOBLEY [facility] [id number] F Exm Date: JUN 24, 2023@09:13 Req Phys: VITOR THORNE May Gunderson Loc: [facility] NEURO [facility] (Req'g Img Loc: [facility] MRI Service: Unknown (Case [id number] COMPLETE) NON [place] MRI BRAIN (MRI Detailed) CPT:74087 Reason for Study: eval for lesion/dolichoectasia to explain L hemifacial spasm Clinical History: MRI BRAIN WITH & WITHOUT CONTRAST WITH FINE CUTS THROUGH CN VII Per Joint Commission Standards, by signing this diagnostic imaging request the ordering provider confirms they have considered patients age and recent imaging history. Did the ordering provider speak with a heritage consultant regarding this imaging exam? 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 History of breast cancer, giant cell arteritis. 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 Clinic Note Dermatology Problem List: FBSE 06/28/23 # Lesion to monitor - L anterior lower leg - 7 x 2 mm brown macule with fingerprinting, half of lesion thickened with few central globules, favor lentigo, photos [id number] 3 months # SKs - L cheek [...] MD RESIDENT Signed: 06/28/2023 12:49 [facility] Jun 28, 2023 11:52 AM DERMATOLOGY [place] G OUTPATIENT NOTE: LOCAL TITLE: DERMATOLOGY CLINIC NURSING NOTE STANDARD TITLE: DERMATOLOGY NURSING OUTPATIENT NOTE DATE OF NOTE: JUN 28, 2023@11:52 ENTRY DATE: JUN 28, 2023@11:52:13 AUTHOR: OLIVIA CALDWELL COSIGNER: URGENCY: STATUS: COMPLETED Dermatology Clinic Nursing Note Observation photos uploaded to [employer]. /baltazar/ OLIVIA CALDWELL RN Signed: 06/28/2023 11:53 OLIVIA CALDWELL [facility]
--- OUTSIDE RECORDS SUMMARY | 2024-02-17 16:49 | XMS_ITS | Encounter Summary ---
Author Name [place] Address [address] [place] [address] Care Team Providers Care Chain Carrier Name Role Phone NATALIA TREJO Primary Care [...] to Policy Talavera [facility] ([id number]) PRESCRIPT ION GEHA May 30, 2005 [id number] [phone] SONIA MOBLEY PATIENT GEHA (SECONDARY ) PREFERRED PROVIDER ORGANIZAT ION (PPO) GEHA A/B PRIMA RY May 30, 2005 [id number] SONIA MOBLEY PATIENT GEHA (SECONDARY ) PREFERRED PROVIDER ORGANIZAT ION (PPO) GEHA A&B PRIMA RY May 30, 2005 [id number] SONIA MOBLEY PATIENT [facility] PREFERRED PROVIDER ORGANIZAT ION (PPO) DO NOT USE May 30, 2005 [id number] TONI BRITO PATIENT MEDICARE (WNR) MEDICARE (M) PART A Jan 29, 2000 PART A [id number] [phone] ITZSONIA AJ PATIENT MEDICARE (WNR) MEDICARE (M) PART B Jan 29, 2000 PART B [id number] ITZSONIA AJ PATIENT Selected Encounter This section includes the information on record at [place] for the Encounter. 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 Date/Time Primary/Secondary Diagnosis Diagnosis Name Provider Source Mar 16, 2023 03:58 PM PRIMARY Clonic hemifacial spasm, left 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 [facility] Mar 16, 2023 03:58 PM SECONDARY Disorder of the skin and subcutaneous tissue, unspecified [facility] Mar 16, 2023 03:58 PM SECONDARY Essential (primary) hypertension [facility] Mar 16, 2023 03:58 PM SECONDARY Peripheral vascular disease, unspecified [facility] Mar 16, 2023 03:58 PM SECONDARY Personal history of malignant neoplasm of breast [facility] Mar 16, 2023 03:58 PM SECONDARY Prediabetes [facility] Mar 16, 2023 03:58 PM SECONDARY Squamous cell carcinoma skin/ left upper limb, inc shoulder [facility] Plan of Treatment: Future Appointments (+ 6 months) and Future Tests (+/- 45 days) The Plan of Treatment section includes future care activities for the patient from all [place] treatmentfacilities. This section includes future appointments and future orders which are active, pending or scheduled. Future Appointments This section includes appointments that were scheduled to occur 6 months from the date of the Encounter, up to a maximum of 20 appointments. The data comes from all [facility]. Appointment Date/Time Appointment Type Appointme nt Facility Name May 03, 2023 08:30 AM AMBULATORY - REHAB MEDICIN [facility] May 03, 2023 09:00 AM AMBULATORY - SURGERY [facility] May 09, 2023 03:00 PM AMBULATORY - REHAB MEDICIN [facility] May 18, 2023 09:15 AM AMBULATORY - SURGERY [facility] May 24, 2023 05:00 PM AMBULATORY - REHAB MEDICIN E [facility] May 31, 2023 01:00 PM AMBULATORY - SURGERY [facility] Jun 24, 2023 09:15 AM AMBULATORY - NONE [facility] Jun 28, 2023 10:40 AM AMBULATORY - SURGERY [facility] Jul 14, 2023 08:00 AM AMBULATORY - MEDICINE [facility] Jul 14, 2023 01:15 PM AMBULATORY - MEDICINE [facility] Aug 03, 2023 07:01 AM [facility] Aug 09, 2023 10:30 [facility] Aug 09, 2023 11:00 [facility] Sep 09, 2023 08:00 AM [facility] Sep 12, 2023 09:30 AM [facility] Sep 12, 2023 10:30 AM AMBULATORY - MEDICINE [facility] Lab Results: +/- 30 days of the [...] Range Comment Mar 15, 2023 08:22 AM [facility] BASIC METABOLIC PANEL+MG Specimen Type: PLASMA No comment entered. Ordering Provider: MARIMAR LEBRON Report Released Date/Time: Feb 10, 2023 09:08 AM Reporting Lab: [place] [facility] [id number] Performing Lab: [facility] [id number] CREATININE 0.6 mg/dL 0.5-1.0 UREA NITROGEN 9 mg/dL 7-20 GLUCOSE 106 mg/dL H 70-100 SODIUM 138 mmol/L 136-145 POTASSIUM 3.4 mmol/L L 3.5-5.1 CHLORIDE 103 mmol/L 98-107 CO2 28 mmol/L 22-29 CALCIUM 9.3 mg/dL 8.4-10.2 MAGNESIUM 1.8 mg/dL 1.6-2.6 ANION GAP 7 mmol/L 5-15 .CREAT EGFR(CKD-EPI ) 86 >60 Mar 15, 2023 08:22 AM [facility] TSH W/REFLEX TO FREE T4 Specimen Type: PLASMA No comment entered. Ordering Provider: NATALIA TREJO Report Released Date/Time: Mar 16, 2022 11:04 AM Reporting Lab: [facility] [id number] Performing Lab: [facility] [id number] TSH 0.61 u[IU]/mL 0.35-4.94 Mar 15, 2023 08:22 AM [facility] BASIC METABOLIC PANEL+MG Specimen Type: PLASMA No comment entered. Ordering Provider: NATALIA TREJO Report Released Date/Time: Mar 16, 2022 11:04 AM Reporting Lab: [facility] [id number] Performing Lab: [facility] Mar 15, 2023 08:22 AM [facility] VIT D 25-OH,TOTAL Specimen Type: SERUM No comment entered. Ordering Provider: NATALIA TREJO Report Released Date/Time: Mar 16, 2022 11:04 AM Reporting Lab: [facility] [phone] Performing Lab: [facility] [phone] VIT D 25-OH,TOTAL 30 ng/mL 12-50 Mar 15, 2023 08:22 AM [facility] CBC Specimen Type: BLOOD No comment entered. Ordering Provider: NATALIA TREJO Report Released Date/Time: Mar 16, 2022 11:04 AM Reporting Lab: [facility] [phone] Performing Lab: [facility] [phone] WBC 5.71 10*3/uL 4.0-11.0 RBC 4.77 10*6/uL 4.0-5.4 HGB 14.2 g/dL 11.5-16 HCT 40.8 34.5-48 MCV 85.5 fL 80-100 MCH 29.8 pg 27-33 MCHC 34.8 g/dL 32.0-37.5 PLT 187 10*3/uL 150-400 MPV 9.3 fL 7.4-10.4 RDW 13.6 11.5-14.5 Mar 15, 2023 08:22 AM [facility] HEMOGLOBIN A1C Specimen Type: BLOOD Comment: [...] Mar 16, 2022 11:04 AM Reporting Lab: [facility] [phone] Performing Lab: [facility] [phone] HEMOGLOBIN A1C 6.0 4.0-6.0 Mar 15, 2023 08:22 AM [facility] LIPID PANEL,NON-FASTING Specimen Type: PLASMA No comment entered. Ordering Provider: NATALIA TREJO Report Released Date/Time: Mar 16, 2022 11:04 AM Reporting Lab: [facility] [phone] Performing Lab: [facility] Vital Signs: All taken on the encounter date This section contains inpatient and outpatient Vital Signs collected on the date of the Encounter. Date/Time Temperature Pulse Blood Pressure Respiratory Rate SP02 Pain Height Weight Body Mass Index Source Mar 15, 2023 10:08 AM 75 /min 124/73 mm[Hg] 18 /min 96 % 0 60.5 in 162.5 lb 31 [facility] Social History: Smoking Status (Most current) and Tobacco Use (All prior to encounter date) This section includes the most current, and the historical, smoking and tobacco- related health factors from the [place] facility where the Encounter took place. Current [...] [facility] Nov 10, 2020 08:30 AM VA-TOBACCO NEVER USED [facility] Pathology Reports: +/- 30 days of [...] the Encounter. The data comes from all [place] treatment facilities. Date/Time Pathology Report Provider Source Mar 16, 2023 02:58 PM LR SURGICAL PATHOL OGY REPORT: LOCAL TITLE: LR SURGICAL PATHOLOGY REPORT STANDARD TITLE: PATHOLOGY REPORT DATE OF NOTE: MAR 16, 2023@14:58:43 ENTRY DATE: MAR 16, 2023@14:58:43 AUTHOR: ALICIA KAUFMAN EXP COSIGNER: URGENCY: STATUS: COMPLETED $APHDR Reporting Lab: [facility] [CLIA# [id number]] [place] [address] - - - - - - - [...] - PATHOLOGY REPORT Accession No. [id number] - - - - - - - [...] - PATHOLOGY REPORT Accession No. [id number] - - - - - - - [...] cm. The specimen is inked. CE. (D) [facility] MICROSCOPIC DESCRIPTION: Microscopic examination performed. 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, incompletely removed /baltazar/ ALICIA KAUFMAN MD STAFF PATHOLOGIST, PATHOLOGY & LABORATORY [facility] Signed Mar 16, 2023@14:58 Performing Laboratory: Surgical Pathology Report Performed By: [facility] [CLIA# [id number]] [place] [address] $FTR - - - - - - [...] - - ALICE MOBLEY STANDARD FORM 515 ID:[id number] SEX:F :1935 AGE: 88 LOC:[id number] PCP: Natalia Ely MD /baltazar/ ALICIA KAUFMAN MD STAFF PATHOLOGIST, PATHOLOGY & LABORATORY [facility] Signed: 03/16/2023 14:58 ALICIA KAUFMAN [facility] Encounter Notes: All associated encounter notes This section contains the clinical notes associated to the Encounter. Date/Time Encounter Note(s) Provider Source Mar 16, 2023 03:59 PM ADDENDUM: LOCAL TITLE: Addendum STANDARD TITLE: ADDENDUM DATE OF NOTE: MAR 16, 2023@15:59:04 ENTRY DATE: MAR 16, 2023@15:59:05 AUTHOR: WEI TREJO EXP COSIGNER: URGENCY: STATUS: COMPLETED Please let patient [...] 03/16/2023 16:00 Receipt Acknowledged By: 03/16/2023 16:03 /es/ MICKI JAIN REGISTERED NURSE --- Original [...] - 2011 4. Polymyalgia rheumatica 5. Prediabetes ([facility] [[email or web address]] [id number]) 6. 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 - pT1c, N0, M0-Stage 1A - s/p lumpectomy 06/2014, radiation therapy - On Anastrazole since 07/2014 7. History of cholecystectomy 8. History of total knee arthroplasty - R knee 9. Peripheral vascular disease - s/p stenting Femoral artery, 2008 10. Sleep Apnea (SCT [id number]) 11. Benign essential hypertension 12. Thoracic aortic [...] Natalia Ely MD Staff Physician Section of [facility] Foot Check: A complete foot check was [...] diminished) SENSORY CHECK: Includes 10 gram Monofilament (Sterling-Nikita) test of sensation. Intact (Greater than or [...] Remote Allergy/ADR Data available for this patient [place] [facility] No Known Allergies Active and Recently Outpatient [...] REGISTERED NURSE Signed: 03/16/2023 16:03 NATALIA TREJO [facility] Mar 15, 2023 11:20 AM [facility] OUTPATIENT E & M NOTE: LOCAL TITLE: [facility] NOTE STANDARD TITLE: [facility] OUTPATIENT E & M NOTE DATE [...] - 2011 4. Polymyalgia rheumatica 5. Prediabetes ([facility] [[email or web address]] [id number]) 6. 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 ([facility] [[email or web address]] [id number]) - L breast, 1.2 cm, 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; ER/AR pos, HER2 neg. - pT1c, N0, M0-Stage 1A - s/p lumpectomy 06/2014, radiation therapy - On Anastrazole since 07/2014 7. History of cholecystectomy 8. History of total knee arthroplasty - R knee 9. Peripheral vascular disease - s/p stenting Femoral artery, 2008 10. Sleep Apnea ([facility] [[email or web address]] [id number]) 11. Benign essential hypertension 12. Thoracic aortic [...] Ely MD Staff Physician Section of [facility] Foot Check: A complete foot check was [...] diminished) SENSORY CHECK: Includes 10 gram Monofilament (Sterling-Nikita) test of sensation. Intact (Greater than or [...] Remote Allergy/ADR Data available for this patient [place] [facility] No Known Allergies Active and Recently Outpatient [...] REGISTERED NURSE Signed: 03/16/2023 16:03 NATALIA TREJO [facility] Mar 15, 2023 10:10 AM [facility]: LOCAL TITLE: [facility] STANDARD TITLE: [facility] NOTE DATE OF NOTE: MAR 15, 2023@10:10 ENTRY DATE: MAR 15, 2023@10:10:10 AUTHOR: MALCOLM VALLADARES COSIGNER: URGENCY: STATUS: COMPLETED [...] medications or herbals. Suicide Screen: C-SSRS Screening [place] Suicide Severity Rating Scale (C-SSRS) screener 1. [...] was this within the past 3 months? (data analyst report writer accidently enter yes to this question- and corrected it- patient is not suicidal incident happend many years ago and has not happened since and patient did see a provider at [place] to help her with this at the [...] PRACTICAL NURSE Signed: 03/15/2023 10:17 MALCOLM VALLADARES [facility]
--- OUTSIDE RECORDS SUMMARY | 2024-02-17 16:50 | XMS_ITS | Encounter Summary ---
Author Name [place] Address [address] [place] [address] Care Team Providers Care Dispatcher Service Chief Name Role Phone NATALIA TREJO Primary Care [...] Patient's Relationship to Policy Talavera [facility] ([id number]) PRESCRIPT ION GEHA May 30, 2005 [id number] [phone] SONIA MOBLEY PATIENT GEHA (SECONDARY ) PREFERRED PROVIDER ORGANIZAT ION (PPO) GEHA A/B PRIMA RY May 30, 2005 [id number] [phone] SONIA MOBLEY PATIENT GEHA (SECONDARY ) PREFERRED PROVIDER ORGANIZAT ION (PPO) GEHA A&B PRIMA RY May 30, 2005 [id number] SONIA MOBLEY PATIENT [facility] PREFERRED PROVIDER ORGANIZAT ION (PPO) DO NOT USE May 30, 2005 [id number] ALISHATONI Olvera PATIENT MEDICARE (WNR) MEDICARE (M) PART A Jan 29, 2000 PART A [id number] [phone] SONIA MOBLEY REINADEJUAN PATIENT MEDICARE (WNR) MEDICARE (M) PART B Jan 29, 2000 PART B [id number] SONIA MOBLEY PATIENT Selected Encounter This section includes the information on record at [place] for the Encounter. Date/Time Encounter Type Encounter Description Reason Provider Source Sep 12, 2023 10:30 AM OFFICE O/P EST MOD 30 MIN COMP WMS HLTH GNDR DIVERSE PC ICD-10-CM I48.91 Unspecified atrial fibrillation NATALIA TREJO [facility] Encounter Template Text not used by [place] Assessments - Encounter Diagnoses This section includes the primary and secondary diagnoses documented for the Encounter. Date/Time Primary/Secondary Diagnosis Diagnosis Name Provider Source Sep 23, 2023 01:34 PM PRIMARY Unspecified atrial fibrillation NATALIA TREJO [facility] Sep 23, 2023 01:34 PM SECONDARY Athscl heart disease of [place] coronary artery w/o ang pctrs [facility] Sep 23, 2023 01:34 PM SECONDARY Essential (primary) hypertension [facility] Sep 23, 2023 01:34 PM SECONDARY Hyperlipidemia, 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 This section includes future appointments and [...] 2023 09:00 AM AMBULATORY - SURGERY [facility] Nov 14, 2023 10:00 AM [facility] Nov 14, 2023 10:30 AM [facility] Nov 22, 2023 09:20 AM AMBULAT[facility] - SURGERY [facility] Dec 19, 2023 09:00 AM AMBULATORY - REHAB MEDICIN E [facility] Dec 22, 2023 08:30 AM [facility] Jan 12, 2024 12:30 PM [facility] Mar 06, 2024 09:00 AM AMBULATORY - NONE JOSEO KEENA [facility] Mar 06, 2024 10:00 AM [facility] Mar 08, 2024 08:00 AM [facility] Lab Results: +/- 30 days of [...] Range Comment Sep 12, 2023 09:40 AM [facility] HEMOGLOBIN A1C Specimen Type: BLOOD Comment: Values obtained from A1C measurements can vary. For typical A1C assays, a reported value of 7.0 could actually be between 6.7 and 7.3 if measured by a reference method. A reported value of 9.0 could actually be between 8.7 and 9.3. Ref: http://www.ngs p.org/CAPdata. asp Ordering Provider: NATALIA TREJO Report Released Date/Time: Mar 17, 2023 04:58 PM Reporting Lab: [facility] [phone] Performing Lab: [facility] [address] HEMOGLOBIN A1C 5.8 4.0-6.0 Sep 12, 2023 09:40 AM [facility] LIPID PANEL,NON-FASTING Specimen Type: PLASMA No comment entered. Ordering Provider: NATALIA TREJO Report Released Date/Time: Mar 17, 2023 04:58 PM Reporting Lab: [facility] [address] Performing Lab: [facility] [address] CHOLESTEROL 210 mg/dL H <199 .HDL 63 mg/dL >50 LDL CALCULATION 121 mg/dL H <99 VLDL CALCULATION 26 mg/dL <29 NON HDL CHOLESTEROL 147 mg/dL H <129 TRIG(NON FASTING) 132 mg/dL <149 Sep 12, 2023 09:40 AM [facility] BASIC METABOLIC PANEL+MG Specimen Type: PLASMA No comment entered. Ordering Provider: NATALIA TREJO Report Released Date/Time: Mar 17, 2023 04:58 PM Reporting Lab: [facility] [address] Performing Lab: [facility] [address] CREATININE 0.6 mg/dL 0.5-1.0 UREA NITROGEN 7 mg/dL 7-20 GLUCOSE 98 mg/dL 70-100 SODIUM 139 mmol/L 136-145 POTASSIUM 3.5 mmol/L 3.5-5.1 CHLORIDE 104 mmol/L 98-107 CO2 29 mmol/L 22-29 CALCIUM 8.9 mg/dL 8.4-10.2 MAGNESIUM 1.8 mg/dL 1.6-2.6 ANION GAP 6 mmol/L 5-15 .CREAT EGFR(CKD-EPI) 86 >60 Vital Signs: All taken on the encounter date This section contains inpatient and outpatient Vital Signs collected on the date of the Encounter. Date/Time Temperature Pulse Blood Pressure Respiratory Rate SP02 Pain Height Weight Body Mass Index Source Sep 12, 2023 10:54 AM 137/79 [facility] Sep 12, 2023 10:46 AM 93 151/83 16 97 0 60.5 164.9 32 [facility] Social History: Smoking Status [...] Robyn baez Sep 12, 2023 10:30 AM VA-TOBACCO NEVER USED [facility] Tobacco Use History This section includes a history of the smoking, or tobacco-related health factors, that were collected on or before the date of the Encounter. The data comes from the [place] facility where the Encounter took place. Date/Time Smoking Status/Tobacco Use Comment Farooq aranda October 18, 2022 10:00 AM VA-TOBACCO NEVER USED [facility] September 28, 2021 09:30 AM VA-TOBACCO NEVER USED [facility] Nov 10, 2020 08:30 AM VA-TOBACCO NEVER USED [facility] Encounter Notes: All associated encounter [...] to f/u on thoracic aortic aneurysm. /baltazar/ Natalia Ely MD STAFF PHYSICIAN Signed: 09/13/2023 08:17 [...] Doesn't report any further a fib episodes; ubaldotch w/out a fib. however, son reports there [...] - 2011 4. Polymyalgia rheumatica 5. Prediabetes ([facility] [id number]) 6. 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 ([facility] [id number]) - L breast, 1.2 cm, 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; ER/IL pos, HER2 neg. - pT1c, N0, M0-Stage 1A - s/p lumpectomy 06/2014, radiation therapy - On Anastrazole since 07/2014 7. History of cholecystectomy 8. History of total knee arthroplasty - R knee 9. Peripheral vascular disease - s/p stenting Femoral artery, 2008 10. Sleep Apnea ([facility] [id number]) 11. Benign essential hypertension 12. Thoracic aortic [...] -needs f/u CT RTC in 6 mos. Natalia Ely MD Staff Physician Section of [facility] // Natalia Ely MD STAFF PHYSICIAN Signed: 09/13/2023 08:17 NATALIA TREJO [facility] Sep 12, 2023 11:21 AM ADMINISTRATIVE NOT [...] provided to the patient is available in [employer]. SCANNED DOCUMENT SIGNATURE NOT REQUIRED Electronically Filed: 09/12/2023 by: Natalia Ely MD STAFF PHYSICIAN NATALIA TREJO [facility] Sep 12, 2023 11:00 AM [facility]: LOCAL TITLE: [facility] NOTE STANDARD TITLE: [facility] OUTPATIENT E & M NOTE [...] - 2011 4. Polymyalgia rheumatica 5. Prediabetes ([facility] [id number]) 6. 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 ([facility] [id number]) - L breast, 1.2 cm, 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; ER/IL pos, HER2 neg. - pT1c, N0, M0-Stage 1A - s/p lumpectomy 06/2014, radiation therapy - On Anastrazole since 07/2014 7. History of cholecystectomy 8. History of total knee arthroplasty - R knee 9. Peripheral vascular disease - s/p stenting Femoral artery, 2008 10. Sleep Apnea ([facility] [id number]) 11. Benign essential hypertension 12. Thoracic aortic [...] -needs f/u CT RTC in 6 mos. Natalia Ely MD Staff Physician Section of [facility] /baltazar/ Natalia Ely MD STAFF PHYSICIAN Signed: 09/13/2023 08:17 09/13/2023 ADDENDUM STATUS: COMPLETED Please let pt know I have ordered Chest CT to f/u on thoracic aortic aneurysm. /baltazar/ Natalia Ely MD STAFF PHYSICIAN Signed: 09/13/2023 08:17 Receipt Acknowledged By: * AWAITING SIGNATURE * MICKI JAIN JILL M [facility] Sep 12, 2023 10:48 AM [facility]: LOCAL TITLE: [facility] NURSING NOTE STANDARD T[facility] DATE OF NOTE: [...] ulcers, or a wound from a medical clinic manager or Patient is bed-confined or a wheelchair-user or Patient requires assistance to transfer/change position No, Skin Screen is Negative Home Abuse/Violence Screen Is your home free of abuse and violence? Yes MOVE! Program Screen Body Mass Index (BMI)= 31.7 [place]: Collection DT Specimen Test Name Result Units Ref Range 09/12/2023 09:40 BLOOD !! HEMOGLOBIN A1C 5.8 % 4.0 - 6.0 !! Indicates COMMENTS AVAILABLE...Refer to Interim Lab Report. [place] Hgb A1C: No data available [place] Hgb A1C: No data available Point of Care Hgb A1C: POC HGB A1C____ Outpatient Nutrition Screen Body Mass Index (BMI)= 31.7 [place]: Collection DT Specimen Test Name Result Units Ref Range 09/12/2023 09:40 BLOOD !! HEMOGLOBIN A1C 5.8 % 4.0 - 6.0 !! Indicates COMMENTS AVAILABLE...Refer to Interim Lab Report. [place] Hgb A1C: No data available [place] Hgb A1C: No data available Point of [...] PRACTICAL NURSE Signed: 09/12/2023 10:54 MALCOLM VALLADARES [facility]
--- OUTSIDE RECORDS SUMMARY | 2024-02-17 16:50 | XMS_ITS | Encounter Summary ---
Author Name [facility] [place] Address [address] [place] [address] Care Team Providers Care Senior Assistant Manager Name Role Phone DOMINIC TREJO Primary Care [...] Name Patient's Relationship to Policy Talavera [facility] ([id number]) PRESCRIPT ION GEHA May 30, 2005 [id number] [phone] SONIA MOBLEY PATIENT GEHA (SECONDARY ) PREFERRED PROVIDER ORGANIZAT ION (PPO) GEHA A&B PRIMA RY May 30, 2005 [id number] [phone] SONIA MOBLEY PATIENT GEHA (SECONDARY ) PREFERRED PROVIDER ORGANIZAT ION (PPO) GEHA A/B PRIMA RY May 30, 2005 [id number] [phone] SONIA MOBLEY PATIENT [facility] PREFERRED PROVIDER ORGANIZAT ION (PPO) DO NOT USE May 30, 2005 [id number] JENNIFERNOREEN TONI PATIENT MEDICARE (WNR) MEDICARE (M) PART A Jan 29, 2000 PART A [id number] SONIA MOBLEY PATIENT MEDICARE (WNR) MEDICARE (M) PART B Jan 29, 2000 PART B [id number] [phone] SONIA MOBLEY PATIENT Selected Encounter This section includes the information on record at [place] for the Encounter. Date/Time Encounter Type Encounter Description Reason Provider Source Jul 29, 2023 11:21 AM QNHP OL DIG ASSMT&MGMT 04-18 CLINICAL PHARMACY ICD-10-CM Z79.01 assisted (current) use of anticoagulants SUZIE NELSON [facility] Encounter Template Text not used by [place] Assessments - Encounter Diagnoses This section includes the primary and secondary diagnoses documented for the Encounter. Date/Time Primary/Secondary Diagnosis Diagnosis Name Provider Source Jul 29, 2023 12:13 PM PRIMARY assisted (current) use of anticoagulants SUZIE NELSON [facility] Jul 29, 2023 12:13 PM SECONDARY Encounter for therapeutic drug level monitoring SUZIE NELSON [facility] Jul 29, 2023 12:13 PM SECONDARY Unspecified atrial fibrillation SUZIE NELSON [facility] Plan of Treatment: Future Appointments (+ 6 months) and Future Tests (+/- 45 days) The Plan of Treatment section includes future care activities for the patient from all [place] treatmentcilities. This section includes future appointments and future orders which are active, pending or scheduled. Future Appointments This section includes appointments that were scheduled to occur 6 months from the date of the Encounter, up to a maximum of 20 appointments. The data comes from all [place] treatment [facility]. Appointment Date/Time Appointment Type Appointme nt Facility Name Aug 03, 2023 07:01 AM [facility]ONE [place] [facility] Aug 09, 2023 10:30 AM [facility] NONE [place] [facility] Aug 09, 2023 11:00 AM AMBULATORY - REHAB MEDICIN E [facility] Sep 09, 2023 08:00 AM [facility] - NONE [place] [facility] Sep 12, 2023 09:30 AM [facility] - NONE [place] [facility] Sep 12, 2023 10:30 AM [facility] Sep 26, 2023 09:00 AM [facility] Nov 14, 2023 10:00 AM AMBULATORY - MEDICINE [facility] Nov 14, 2023 10:30 AM AMBULATORY - MEDICINE [facility] Nov 22, 2023 09:20 AM AMBULATORY - SURGERY EV[facility] Dec 19, 2023 09:00 AM AMBULATORY - REHAB MEDICIN E [facility] Dec 22, 2023 08:30 AM [facility] Jan 12, 2024 12:30 PM AMBULATORY - SURGERY [facility] Lab Results: +/- 30 days of [...] Range Comment Aug 09, 2023 08:50 AM [facility] CREATININE(INCLUDES EGFR) Specimen Type: PLASMA No comment entered. Ordering Provider: SUZIE NELSON Report Released Date/Time: Jul 29, 2023 11:58 AM Reporting Lab: [facility] [id number] Performing Lab: [facility] [id number] CREATININE 0.7 mg/dL 0.5-1.0 .CREAT EGFR(CKD-EPI ) 83 >60 Aug 09, 2023 08:50 AM [facility] CBC Specimen Type: BLOOD No comment entered. Ordering Provider: SUZIE NELSON Report Released Date/Time: Jul 29, 2023 11:58 AM Reporting Lab: [facility] [id number] Performing Lab: [facility] [id number] WBC 5.92 10*3/uL 4.0-11.0 RBC 4.72 10*6/uL 4.0-5.4 HGB 13.9 g/dL 11.5-16 HCT 40.3 34.5-48 MCV 85.4 fL 80-100 MCH 29.4 pg 27-33 MCHC 34.5 g/dL 32.0-37.5 PLT 211 10*3/uL 150-400 MPV 9.2 fL 7.4-10.4 RDW 13.3 11.5-14.5 Aug 09, 2023 08:50 AM [facility] AST/SGOT Specimen Type: PLASMA No comment entered. Ordering Provider: SUZIE NELSON Report Released Date/Time: Jul 29, 2023 11:58 AM Reporting Lab: [facility] [id number] Performing Lab: [facility] [id number] AST/SGOT 28 U/L <34 Aug 09, 2023 08:50 AM [facility] ALT/SGPT Specimen Type: PLASMA No comment entered. Ordering Provider: SUZIE NELSON Report Released Date/Time: Jul 29, 2023 11:58 AM Reporting Lab: [facility] [id number] Performing Lab: [facility] [id number] ALT/SGPT 21 U/L <55 Social History: Smoking Status (Most current) and Tobacco Use (All prior to encounter date) This section includes the most current, and the historical, smoking and tobacco- related health factors from the [facility] where the Encounter took place. Current Smoking Status This section includes the most current smoking, or tobacco-related health factor, from the [place] facility where the Encounter took place. Date/Time Current Smoking Status Comment Facil ity October 18, 2022 10:00 AM [place]-TOBACCO NEVER USED [facility] Tobacco Use History This section includes a history of the smoking, or tobacco-related health factors, that were collected on or before the date of the Encounter. The data comes from the [place] facility where the Encounter took place. Date/Time Smoking Status/Tobacco Use Comment F acility September 28, 2021 09:30 AM [facility]-TOBACCO NEVER USED [facility] Nov 10, 2020 08:30 AM VA-TOBACCO NEVER USED [facility] Encounter Notes: All associated encounter notes This section contains the clinical notes associated to the Encounter. Date/Time Encounter Note(s) Provider Source Jul 29, 2023 11:21 AM MEDICATION MGT CONSULT: LOCAL TITLE: ANTICOAGULATION CLINIC CONSULT STANDARD TITLE: MEDICATION MGT CONSULT DATE OF NOTE: JUL 29, 2023@11:21 ENTRY DATE: JUL 29, 2023@11:21:51 AUTHOR: SUZIE NELSON EXP COSIGNER: URGENCY: STATUS: COMPLETED ANTICOAGULATION CLINIC CONSULT Has ADDENDA DOAC INITIATION - Anticoagulant: apixaban 5mg q12h - Indication(s): A. Fib - Relevant PMH: CAD Non-obstructive on angio 11/2007 (40% mid LAD, 40% prox LCx, 20% distal RCA 30% PDA), s/p stenting Femoral artery (2008), htn - Prior major bleeds:none - Prior anticoagulants: none - Start date: 06/2023 - Anticipated duration: indefinite - [id number] = 5 (2+ age, pvd/cad, htn, female) [...] No Weight >150kg/BMI >50: YES Agrees to [facility] management, comanagement not allowed: YES Agrees [...] since initiation ~ > 2 weeks. - assisted use of anticoagulants added to problem list. [...] education: 30minutes Education packet mailed to patient. /talat NELSON Pharm.D., [facility] Anticoagulation Clinical Pharmacist Signed: 07/29/2023 12:18 08/04/2023 ADDENDUM STATUS: COMPLETED No Significant drug interactions: - Asa 81mg daily, see pcp notes /talat NELSON Pharm.D., [facility] Anticoagulation Clinical Pharmacist Signed: 08/04/2023 18:13 SUZIE NELSON [facility]
--- OUTSIDE RECORDS SUMMARY | 2024-02-17 16:50 | XMS_ITS | Encounter Summary ---
Author Name [facility] [place] Address [address] [place] [address] Care Team Providers Care Service Order Dispatcher Name Role Phone DOMINIC TREJO Primary Care [...] Relationship to Policy Talavera [facility] ([id number]) PRESCRIPT ION GEHA May 30, 2005 [id number] [phone] SONIA GUTIERRES PATIENT GEHA (SECONDARY ) PREFERRED PROVIDER ORGANIZAT ION (PPO) GEHA A&B PRIMA RY May 30, 2005 [id number] [phone] SONIA GUTIERRES PATIENT GEHA (SECONDARY ) PREFERRED PROVIDER ORGANIZAT ION (PPO) GEHA A/B PRIMA RY May 30, 2005 [id number] SONIA GUTIERRES PATIENT [facility] PREFERRED PROVIDER ORGANIZAT ION (PPO) DO NOT USE May 30, 2005 [id number] TONI BRITO PATIENT MEDICARE (WNR) MEDICARE (M) PART A Jan 29, 2000 PART A [id number] SONIA GUTIERRES REINADEJUAN PATIENT MEDICARE (WNR) MEDICARE (M) PART B Jan 29, 2000 PART B [id number] [phone] SONIA GUTIERRES PATIENT Selected Encounter This section includes the information on record at [place] for the Encounter. Date/Time Encounter Type Encounter Description Reason Provider Source Aug 09, 2023 11:00 AM OFFICE O/P EST HI 40 MIN NEUROLOGY ICD-10-CM G51.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, left VITOR THORNE IHMay Encounter Template Text not used by [place] Assessments - Encounter Diagnoses This section includes the primary and secondary diagnoses documented for the Encounter. Date/Time Primary/Secondary Diagnosis Diagnosis Name Provider Source Aug 16, 2023 01:18 PM PRIMARY Clonic hemifacial spasm, left VITOR THORNE [facility] Plan of Treatment: Future Appointments (+ [...] 20 appointments. The data comes from all [facility]. Appointment Date/Time Appointment Type Appointme nt Facility Name Sep 09, 2023 08:00 AM AMBULATORY - NONE [facility] Sep 12, 2023 09:30 AM AMBULATORY - NONE [facility] Sep 12, 2023 10:30 AM AM[facility]ULATORY [facility] MEDICINE [facility] Sep 26, 2023 09:00 AM AMBULATORY - SURGERY [facility] Nov 14, 2023 10:00 AM [facility] Nov 14, 2023 10:30 AM [facility]ULATORY [facility] Nov 22, 2023 09:20 AM AMBULATORY - SURGERY [facility] Dec 19, 2023 09:00 AM AMBULATORY - REHAB MEDICIN E [facility] Dec 22, 2023 08:30 AM AMBULATORY - PSYCHIATRY ANA MARÍA RITTER [facility] Jan 12, 2024 12:30 PM AMBULATORY - SURGERY EVIN NIETO [facility] Lab Results: +/- 30 days of the encounter This section includes the Chemistry and Hematology Lab Results on record with [place] for the patient. Radiology Reports and Pathology Reports are provided separately, in subsequent sections. Lab Results This section contains the Chemistry/Hematology Results that were resulted 30 days before or 30 daysafter the date of the Encounter. Date/Time Source Result Type Result - Unit Interpretation Reference Range Comment Aug 09, 2023 08:50 AM [facility] CBC Specimen Type: BLOOD No comment entered. Ordering Provider: SUZIE NELSON Report Released Date/Time: Jul 29, 2023 11:58 AM Reporting Lab: [facility] [id number] Performing Lab: [facility] [id number] WBC 5.92 10*3/uL 4.0-11.0 RBC 4.72 10*6/uL 4.0-5.4 HGB 13.9 g/dL 11.5-16 HCT 40.3 34.5-48 MCV 85.4 fL 80-100 MCH 29.4 pg 27-33 MCHC 34.5 g/dL 32.0-37.5 PLT 211 10*3/uL 150-400 MPV 9.2 fL 7.4-10.4 RDW 13.3 11.5-14.5 Aug 09, 2023 08:50 AM [facility] CREATININE(INCLUDES EGFR) Specimen Type: PLASMA No comment entered. Ordering Provider: SUZIE NELSON Report Released Date/Time: Jul 29, 2023 11:58 AM Reporting Lab: [facility] [id number] Performing Lab: [facility] [id number] CREATININE 0.7 mg/dL 0.5-1.0 .CREAT EGFR(CKD-EPI ) 83 >60 Aug 09, 2023 08:50 AM [facility] AST/SGOT Specimen Type: PLASMA No comment entered. Ordering Provider: SUZIE NELSON Report Released Date/Time: Jul 29, 2023 11:58 AM Reporting Lab: [facility] [id number] Performing Lab: [facility] [id number] AST/SGOT 28 U/L <34 Aug 09, 2023 08:50 AM [facility] ALT/SGPT Specimen Type: PLASMA No comment entered. Ordering Provider: SUIZE NELSON Report Released Date/Time: Jul 29, 2023 11:58 AM Reporting Lab: [facility] [phone] Performing Lab: [facility] [id number] ALT/SGPT 21 U/L <55 Vital Signs: All taken on the encounter date This section contains inpatient and outpatient Vital Signs collected on the date of the Encounter. Date/Time Temperature Pulse Blood Pressure Respiratory Rate SP02 Pain Height Weight Body Mass Index Source Aug 09, 2023 10:51 AM 97.8 68 136/78 16 97 0 [facility] Social History: Smoking Status (Most [...] 18, 2022 10:00 AM [place]-TOBACCO NEVER USED [facility] Tobacco Use History This section includes a history of the smoking, or tobacco-related health factors, that were collected on or before the date of the Encounter. The data comes from the [place] facility where the Encounter took place. Date/Time Smoking Status/Tobacco Use Comment F acnelia September 28, 2021 09:30 AM [place]-TOBACCO NEVER USED [facility] Nov 10, 2020 08:30 AM [place]-TOBACCO NEVER USED [facility] Encounter Notes: All associated encounter notes This section contains the clinical notes associated to the Encounter. Date/Time Encounter Note(s) Provider Source Aug 09, 2023 11:20 AM NEUROLOGY ATTENDING NOTE: LOCAL TITLE: NEUROLOGY CLINIC NOTE STANDARD TITLE: NEUROLOGY ATTENDING NOTE DATE OF NOTE: AUG 09, 2023@11:20 ENTRY DATE: AUG 08, 2023@21:14:47 AUTHOR: VITOR THORNE COSIGNER: URGENCY: STATUS: COMPLETED SUBJECT: MOVEMENT DISORDERS [...] effects. She had a brain MRI at [facility] 06/24/2023 REVIEW OF SYSTEMS: 10 system ROS [...] 5. Prediabetes ([facility] [[email or web address]] [phone]) 6. 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 - pT1c, N0, M0-Stage 1A - s/p lumpectomy 06/2014, radiation therapy - On Anastrazole since 07/2014 7. History of cholecystectomy 8. History of total knee arthroplasty - R knee 9. Peripheral vascular disease - s/p stenting Femoral artery, 2008 10. Sleep Apnea ([facility] [[email or web address]] [phone]) 11. Benign essential hypertension 12. 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 Atrial fibrillation 15. Long-term current use of anticoagulant FAMILY HISTORY: No neurological disorders. SOCIAL HISTORY: Lives in a long term community in [place]. PHYSICAL EXAMINATION: Blood Pressure: 136/78 (08/09/2023 10:51) [...] Used: Onabotulinumtoxin A, 100 unit vial Lot#: [id number] Expiration Date: 10/2025 Review of Imagin06/24/23 Brain MRI with and without contrast, trigeminal protocol ([facility]) - unfortunately, the radiologist focused on the [...] date of service reviewing records, evaluating the [id number] in clinic, performing the procedure, coordinating care, and documenting the encounter. /baltazar/ VITOR THORNE Physician Signed: 08/16/2023 13:18 VITOR THORNE [facility] Aug 09, 2023 10:53 AM NEUROLOGY NURSING [...] LPN LPN Signed: 08/09/2023 10:54 ELISA GOLDSMITH [facility]
--- OUTSIDE RECORDS SUMMARY | 2024-02-17 16:51 | XMS_ITS | Encounter Summary ---
Author Name [facility] [place] Address [address] [place] [address] Care Team Providers Care Code Machine Operator Name Role Phone DOMINIC TREJO Primary Care [...] Patient's Relationship to Policy Talavera [facility] ([id number]) PRESCRIPT ION GEHA May 30, 2005 [id number] [phone] SONIA MOBLEY PATIENT GEHA (SECONDARY ) PREFERRED PROVIDER ORGANIZAT ION (PPO) GEHA A&B PRIMA RY May 30, 2005 [id number] SONIA MOBLEY PATIENT GEHA (SECONDARY ) PREFERRED PROVIDER ORGANIZAT ION (PPO) GEHA A/B PRIMA RY May 30, 2005 [id number] SONIA MOBLEY PATIENT [facility] PREFERRED PROVIDER ORGANIZAT ION (PPO) DO NOT USE May 30, 2005 [id number] ALISHATONI May PATIENT MEDICARE (WNR) MEDICARE (M) PART A Jan 29, 2000 PART A [id number] [phone] SONIA MOBLEY REINADEJUAN PATIENT MEDICARE (WNR) MEDICARE (M) PART B Jan 29, 2000 PART B [id number] [phone] SONIA MOBLEY REINADEJUAN PATIENT Selected Encounter This section includes the information on record at [place] for the Encounter. Date/Time Encounter Type Encounter Description Reason Provider Source Nov 22, 2023 09:20 AM OFFICE O/P EST LOW 20 MIN DERMATOLOGY ICD-10-CM L81.4 Other melanin hyperpigmentation KATHLEEN MORTENSEN I IHMay Encounter Template Text not used by [place] Assessments - Encounter Diagnoses This section includes the primary and secondary diagnoses documented for the Encounter. Date/Time Primary/Secondary Diagnosis Diagnosis Name Provider Source Nov 29, 2023 01:20 PM PRIMARY Other melanin hyperpigmentation KERI ROSENBERG [facility] Plan of Treatment: Future Appointments (+ 6 months) and Future Tests (+/- 45 days) The Plan of Treatment section includes future care activities for the patient from [facility] [place] [facility] This section includes future appointments and future orders which are active, pending or scheduled. Future Appointments This section includes appointments that were scheduled to occur 6 months from the date of the Encounter, up to a maximum of 20 appointments. The data comes from all [place] treatment facilities. Appointment Date/Time Appointment Type Appointme nt Facility Name Dec 19, 2023 09:00 AM AMBULATORY - REHAB MEDICIN E [facility] Dec 22, 2023 08:30 AM [facility] Jan 12, 2024 12:30 PM AMBULATORY - SURGERY [facility] Mar 06, 2024 09:00 AM AMBULATORY - NONE [facility] Mar 06, 2024 10:00 AM [facility] Mar 08, 2024 08:00 AM AMBULATORY - NONE [facility] Mar 27, 2024 10:30 AM AMBULATORY - REHAB MEDICIN [facility] May 14, 2024 09:20 AM AMBULATORY - SURGERY [facility] Active, Pending, and Scheduled Orders This section includes a listing of several types of active, pending, and scheduled orders, including clinic medications orders, diagnostic test orders, procedure orders and consult orders; where the start date of the order is 45 days before the date of the Encounter or 45 days after the date of theEncounter. The data comes from all [place] treatment facilities. Test Date/Time Test Type Test Details Facility Name Dec 19, 2023 12:00 AM Laboratory - Chemi stry Order BASIC METABOLIC PANEL+MG PLASMA SP ONCE [facility] Social History: [...] Date/Time Current Smoking Status Comment Facil ity Sep 12, 2023 10:30 AM VA-TOBACCO NEVER USED [facility] Tobacco Use History This section includes a history of the smoking, or tobacco-related health factors, that were collected on or before the date of the Encounter. The data comes from the [place] facility where the Encounter took place. Date/Time Smoking Status/Tobacco Use Comment F acility October 18, 2022 10:00 AM VA-TOBACCO NEVER USED [facility] September 28, 2021 09:30 AM VA-TOBACCO NEVER USED [facility] Nov 10, 2020 08:30 AM VA-TOBACCO NEVER USED [facility] Encounter Notes: All associated encounter notes This section contains the clinical notes associated to the Encounter. Date/Time Encounter Note(s) Provider Source Nov 22, 2023 09:44 AM DERMATOLOGY ATTEND ING NOTE: LOCAL TITLE: DERMATOLOGY CLINIC NOTE STANDARD TITLE: DERMATOLOGY ATTENDING NOTE DATE OF NOTE: NOV 22, 2023@09:44 ENTRY DATE: NOV 22, 2023@09:44:51 AUTHOR: VEENA ROSENBERG EXP COSIGNER: URGENCY: STATUS: COMPLETED DERMATOLOGY CLINIC NOTE Has ADDENDA Dr. Mortensen saw and evaluated the patient with me, and agrees with the findings, assessment and plan as outlined. 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 Last seen in derm clinic in May for FBSE and was told to return for recheck of pigmented lesion on the leg. She also has a wart on the L medial foot that was frozen at the last visit. She states this is not painful and she is not interested in treating further. Review of systems: CONST: Otherwise in baseline state of health. SKIN: As above in HPI, no additional skin concerns. OBJECTIVE: GEN: No acute distress. SKIN: focused exam of lower leg - 6x2mm asymmetric brown macule with moth eaten borders. Barrientos homogenous areas, fingerprinting and some darker brown thickened lines on the left side ASSESSMENT & PLAN: # Lesion to monitor, left anterior lower leg (favor lentigo) Compared to clinical photos taken at last visit appears unchanged. Measures closer to 6mm with dermatoscopy. Continue to favor lentigo. Dermoscopy photos taken today and uploaded to [employer]. - Per Dr. Mortensen return in 6 months for recheck and FBSE # Verruca Vulgaris, L medial foot s/p cryo during last visit. Today patient declines treating. RTC 6 months for FBSE + f/u lesion on L anterior lower leg. Total encounter time (including chart review, counseling, documentation, ordering of labs/meds): 20-29 min /baltazar/ VEENA ROSENBERG MD Resident Signed: 11/22/2023 10:08 Receipt Acknowledged By: 11/25/2023 17:30 /baltazar/ KANA MORTENSEN MD INTERNAL MEDICINE/DERMATOLOGY STAFF 11/25/2023 ADDENDUM STATUS: COMPLETED I saw and evaluated the patient. I reviewed the resident's note and agree. I was physically present during the marcos portions of the procedure and available during the entire procedure as the attending surgeon, providing medically necessary supervision, and ready to perform any service required as the surgeon. /baltazar/ KANA MORTENSEN MD INTERNAL MEDICINE/DERMATOLOGY STAFF Signed: 11/25/2023 17:31 VEENA ROSENBERG [facility]
--- OUTSIDE RECORDS SUMMARY | 2024-02-17 16:51 | XMS_ITS | Encounter Summary ---
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 Name Role Phone DOMINIC TREJO Primary Care [...] Patient's Relationship to Policy [facility] ([id number]) PRESCRIPT ION GEHA May 30, 2005 [id number] [phone] SONIA MOBLEY PATIENT GEHA (SECONDARY ) PREFERRED PROVIDER ORGANIZAT ION (PPO) GEHA A&B PRIMA RY May 30, 2005 [id number] SONIA MOBLEY PATIENT [facility] (SECONDARY ) PREFERRED PROVIDER ORGANIZAT ION (PPO) GEHA A/B PRIMA RY May 30, 2005 [id number] SONIA MOBLEY PATIENT [facility] PREFERRED PROVIDER ORGANIZAT ION (PPO) DO NOT USE May 30, 2005 [id number] ALISHATONI Olvera PATIENT MEDICARE (WNR) MEDICARE (M) PART A Jan 29, 2000 PART A [id number] [phone] SONIA MOBLEY PATIENT MEDICARE (WNR) MEDICARE (M) PART B Jan 29, 2000 PART B [id number] [phone] SONIA MOBLEY PATIENT Selected Encounter This section includes the information on record at [place] for the Encounter. Date/Time Encounter Type Encounter Description Reason Provider Source Nov 14, 2023 10:30 AM PSYTX W PT 30 MINUTES PCMHI INDIV ICD-10-CM G31.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 MEGAN CARLOS [facility] Encounter Template Text not used by [place] Assessments - Encounter Diagnoses This section includes the primary and secondary diagnoses documented for the Encounter. Date/Time Primary/Secondary Diagnosis Diagnosis Name Provider Source Nov 24, 2023 01:35 PM PRIMARY Mild cognitive impairment of uncertain or unknown etiology MEGAN CARLOS [facility] Plan of Treatment: Future Appointments (+ 6 months) and Future Tests (+/- 45 days) The Plan of Treatment section includes [facility] care [facility] the [facility] [place] [facility] This section includes future appointments and future orders which are active, pending or scheduled. Future Appointments This section includes appointments that were scheduled to occur 6 months from the date of the Encounter, up to a maximum of 20 appointments. The data comes from all [facility]. Appointment Date/Time Appointment Type Appointme nt Facility Name Nov 22, 2023 09:20 AM AMBULATORY - SURGERY [facility] Dec 19, 2023 09:00 AM AMBULATORY - REHAB MEDICIN E [facility] Dec 22, 2023 08:30 AM [facility] Jan 12, 2024 12:30 PM AMBULAT[facility] - SURGERY [facility] Mar 06, 2024 09:00 AM AMBULATORY - NONE [facility] Mar 06, 2024 10:00 AM [facility] Mar 08, 2024 08:00 AM [facility] - NONE [facility] Mar 27, 2024 10:30 AM AMBULATORY - REHAB MEDICIN E [facility] May 14, 2024 09:20 AM AMBULATORY - SURGERY [facility] Active, Pending, and Scheduled Orders This section includes a listing of several types of active, pending, and scheduled orders, including clinic medications orders, diagnostic test orders, procedure orders and consult orders; where the start date of the order is 45 days before the date of the Encounter or 45 days after the date of theEncounter. The data comes from all [place] treatment facilities. Test Date/Time Test Type Test Details Facility Name Dec 19, 2023 12:00 AM Laboratory - Chemi stry Order BASIC METABOLIC PANEL+MG PLASMA SP ONCE [facility] Vital Signs: All taken on the encounter date This section contains inpatient and outpatient Vital Signs collected on the date of the Encounter. Date/Time Temperature Pulse Blood Pressure Respiratory Rate SP02 Pain Height Weight Body Mass Index Source Nov 14, 2023 10:57 AM 151/78 [facility] Nov 14, 2023 09:43 AM 67 178/75 16 98 0 61 157.8 30 [facility] Social History: Smoking Status (Most [...] Robyn baez Sep 12, 2023 10:30 AM [place]-TOBACCO NEVER USED [facility] Tobacco Use History This section includes a history of the smoking, or tobacco-related health factors, that were collected on or before the date of the Encounter. The data comes from the [place] facility where the Encounter took place. Date/Time Smoking Status/Tobacco Use Comment F acnelia October 18, 2022 10:00 AM [place]-TOBACCO NEVER USED [facility] September 28, 2021 09:30 AM VA-TOBACCO NEVER USED [facility] Nov 10, 2020 08:30 AM VA-TOBACCO NEVER USED [facility] Encounter Notes: All associated encounter notes This section contains the clinical notes associated to the Encounter. Date/Time Encounter Note(s) Provider Source Nov 14, 2023 10:30 AM [facility]: LOCAL TITLE: PRIMARY CARE-MH INTEGRATION PROGRESS NOTE STANDARD TITLE: MENTAL HEALTH [facility] INTERDISCIPLINARY NOTE DATE OF NOTE: NOV 14, 2023@10:30 ENTRY DATE: NOV 14, 2023@11:45:14 AUTHOR: MEGAN CARLOS COSIGNER: URGENCY: STATUS: COMPLETED 20 minute cognitive screen S/O: Patient is 88yo female here with son for PCP visit to discuss cognitive concerns. She noted she is not keeping track of things as well as she used to, misplaced forms for her taxes (and didn't file this year per PCP). In addition she shared I had to have 5 friends help me find my wallet. She agreed to brief cognitive screen today. [facility], has recently accepted home health nurse to set up meds. Engaged in social activities in the building and reports some wt. loss with walking. Mood is hedonic, sleep good. MSE: The was alert and oriented to person, place, situation. They appeared appropriately and casually dressed and groomed for the session. Hamlin's stated mood was hedonic. Affect appeared appropriate to content and congruent with stated mood. Speech was of normal rate, rhythm, and volume. Behavior was pleasant, friendly and cooperative. They exhibited good eye contact and appeared engaged in the assessment session and clinical interview. Thought content was appropriate to content discussed and future oriented. Thought process was logical and goal directed. denied auditory or visual hallucinations and there was no evidence of psychosis. Memory problems as noted on STMS testing below. Their insight and judgement appeared good. SHORT TEST OF MENTAL STATUS (STMS) Subtest Score (Max) Comments: ------- --------- Orientation ___6___ (8) Comments: July, Attention ___6___ (7) Comments: Learning ___4___ (4) Comments: # of trials for learning acquisition ____1___ (up to 4 - need for Total Score below) Calculation ___2__ (4) Comments: 65-7=52, 29+11=30 Abstraction ___2___ (3) Comments: table and bookcase=usable objects Construction ___3___ (4) Comments: missed lower half numbers on clock Information ____4__ (4) Comments: Recall __0____ (4) Comments: Raw Score* ___27___ (38) ----- TOTAL SCORE = [Raw score* - (# of learning trials - 1)] = __27_/38 ----- Impression: 88yo female with cognitive deficits warranting further evaluation. She is open to referral to N/P for testing. Diagnoses: Mild cognitive impairment of uncertain or unknown etiology (ICD-10-CM G31.84) (Primary) P: Will refer for N/P testing. /baltazar/ Megan Carlos MS,RN,[employer] Clinical Nurse Specialist Signed: 11/14/2023 11:52 MEGAN CARLOS [facility]
--- OUTSIDE RECORDS SUMMARY | 2024-02-17 16:52 | XMS_ITS | Encounter Summary ---
Author Name [facility] Address [address] [place] [address] Care Team Providers Care Food Service Utility Worker Name Role Phone NATALIA TREJO Primary Care [...] Relationship to Policy Talavera [facility] ([id number]) PRESCRIPT ION GEHA May 30, 2005 [id number] [phone] SONIA MOBLEY PATIENT GEHA (SECONDARY ) PREFERRED PROVIDER ORGANIZAT ION (PPO) GEHA A/B PRIMA RY May 30, 2005 [id number] SONIA MOBLEY PATIENT GEHA (SECONDARY ) PREFERRED PROVIDER ORGANIZAT ION (PPO) GEHA A&B PRIMA RY May 30, 2005 [id number] SONIA MOBLEY PATIENT [facility] PREFERRED PROVIDER ORGANIZAT ION (PPO) DO NOT USE May 30, 2005 [id number] ALISHATONI May PATIENT MEDICARE (WNR) MEDICARE (M) PART A Jan 29, 2000 PART A [id number] [phone] ITZSONIA AJ PATIENT MEDICARE (WNR) MEDICARE (M) PART B Jan 29, 2000 PART B [id number] [phone] SONIA MOBLEY PATIENT Selected Encounter This section includes the information on record at [place] for the Encounter. Date/Time Encounter Type Encounter Description Reason Provider Source Dec 05, 2023 01:05 PM Outpatient Encounter COMMUNITY CARE CONSULT MERI HUSAIN Encounter Template Text not used by [place] Plan of Treatment: Future Appointments (+ 6 months) and Future Tests (+/- 45 days) The Plan of Treatment section includes future care activities for the patient from all [place] [facility] This section includes future appointments and future orders which are active, pending or scheduled. Future Appointments This section includes appointments that were scheduled to occur 6 months from the date of the Encounter, up to a maximum of 20 appointments. The data comes from all [facility]. Appointment Date/Time Appointment Type Appointme nt Facility Name Dec 19, 2023 09:00 AM AMBULATORY - REHAB MEDICIN E [facility] Dec 22, 2023 08:30 AM AMBULATORY - PSYCHIATRY [facility] Jan 12, 2024 12:30 PM AMBULATORY - SURGERY [facility] Mar 06, 2024 09:00 AM AMBULATORY - NONE [facility] Mar 06, 2024 10:00 AM AMBULATORY - MEDICINE [facility] Mar 08, 2024 08:00 AM AMBULATORY - NONE [facility] Mar 27, 2024 10:30 AM AMBULATORY - REHAB MEDICIN E [facility] May 14, 2024 09:20 AM AMBULATORY - SURGERY [facility] Active, Pending, and Scheduled Orders This section includes a listing of several types of active, pending, and scheduled orders, including clinic medications orders, diagnostic test orders, procedure orders and consult orders; where the start date of the order is 45 days before the date of the Encounter or 45 days after the date of theEncounter. The data comes from all [facility]. Test Date/Time Test Type Test Details Facility Name Dec 19, 2023 12:00 AM Laboratory - Chemi stry Order BASIC METABOLIC PANEL+MG PLASMA SP ONCE [facility] Social History: Smoking Status (Most current) and Tobacco Use (All prior to encounter date) This section includes the most current, and the historical, smoking and tobacco- related health factors from the [facility] where the Encounter took place. Current Smoking Status This section includes the most current smoking, or tobacco-related health factor, from the [place] facility where the Encounter took place. Date/Time Current Smoking Status Comment Facil ity Sep 12, 2023 10:30 AM VA-TOBACCO NEVER USED [facility] Tobacco Use History This section includes a history of the smoking, or tobacco-related health factors, that were collected on or before the date of the Encounter. The data comes from the [place] facility where the Encounter took place. Date/Time Smoking Status/Tobacco Use Comment F acnelia October 18, 2022 10:00 AM VA-TOBACCO NEVER USED [facility] September 28, 2021 09:30 AM VA-TOBACCO NEVER USED [facility] Nov 10, 2020 08:30 AM VA-TOBACCO NEVER USED [facility] Encounter Notes: All associated encounter notes This section contains the clinical notes associated to the Encounter. Date/Time Encounter Note(s) Provider Source Dec 22, 2023 11:20 AM ADDENDUM: LOCAL TITLE: Addendum STANDARD TITLE: ADDENDUM DATE OF NOTE: DEC 22, 2023@11:20:22 ENTRY DATE: DEC 22, 2023@11:20:23 AUTHOR: MERI HUSAIN EXP COSIGNER: URGENCY: STATUS: COMPLETED In reference to Community Care Consult #[id number] [facility] CARE REFERRAL - NON SKILLED dated 11/30/23, consult cancelled d/t: No call back from 's son - 's son reported he would determine if the 's private van services can provide transport to the [place] adult day program d/t no adult day health care transport available [facility] [place]. If 's son calls back and can provide transport to [facility] facility - credit underwriter will edit/resubmit the consult and process. will cc pcp and SW for situational awareness. /baltazar/ MERI HUSAIN, MSN, still operator brandy Care Trans Router Signed: 12/22/2023 11:20 Receipt Acknowledged By: 12/23/2023 14:19 /es/ IMANI CRAFT [facility] SLASHER RUNNER, [facility] 12/23/2023 08:50 /es/ Natalia Sales MD STAFF PHYSICIAN 12/22/2023 11:26 /es/ DEVI VANEGAS RN REGISTERED NURSE for MICKI JAIN --- Original Document --- 12/05/23 PERSONAL CARE SERVICES CASE MIX TOOL: BS Case Mix & Budget Tool (CASE MIX) Date Given: 12/05/2023 - completed with perfecto Newton Clinician: Meri Husain Location: [facility] : Yariel Mobley SSN: [id number] : [birth year] ([birth year]) Gender: Female Type of Evaluation: Initial Anticipated Start Date: 12/12/2023 Anticipated Length of Service: 6 months Case Mix Level: A ADL Category: Low Questions and Answers: Q1. DRESSING 0 Can dress without help of any kind. Q2. GROOMING 0 Can comb your hair, wash your face, shave or brush your teeth without help of any kind. Q3. BATHING 0 Can bathe or shower without any help. Q4. EATING 0 Can eat without help of any kind. Q5. BED MOBILITY 0 Can move in bed without any help. Q6. TRANSFERRING 0 Can get in and out of a bed or chair without help of any kind. Q7. WALKING 0 Walk without help of any kind. Q8. BEHAVIOR 0 Behavior requires no intervention. Q9. COMMUNICATION 0 Understood. Q10. TOILETING *2 Have accidents sometimes, but not more than once a week. Q11. MDS HC 2.0/CPS Cognitive Skill for Daily Decision Making 0 Independent - decisions consistent/reasonable. Q12. MDS 2.0/CPS: Short Term Memory (recall of what was learned or known) 1 Memory problem Q13. SPECIAL TREATMENTS 0 No TX Q14. CLINICAL MONITORING 0 Less than once a day Q15. SPECIAL NURSING No Q16. NEUROMUSCULAR DIAGNOSIS Yes COMMENTS Pt. with hx of breast ca, CAD, Hemifacial spasm of left facial nerve and contributing to the request to initiate adult day health care services. see notes below for additional info if needed. SOURCES 1. Person, 2. Informant, 3. Medical Record /es/ MERI HUSAIN, MSN, still operator brandy Care Trans Router Signed: 12/05/2023 13:25 12/05/2023 ADDENDUM STATUS: COMPLETED Main contact for (if other than ): Name: aman Relationship to : son Kremlin/caregiver educated on Personal Care Services (PCS) available: Yes PCS needed/requested by /caregiver: Home Health Aide (NURSE EXTERN) - no Homemaking (HM) - no In-Home Respite - no Adult Day Health Care (ADHC) - yes Personal Care Services Case Mix Classification: A See Personal Care Services Case Mix Tool Note dated 12/05/23 Are first range hours adequate for this ? Yes. Distribution of hours: ADHC 1 days/week (1 day of ADHC = 5 hours) During opt in call, credit underwriter provided education to 's son that [place] qualifies for 1 day/week for adult day health care services, based on assessment. utilizes a [facility] services for medical appointments. ind with all ADLs per son's report and is requesting to start adult day program for increased socialization. Son reported that the currently has some socialization at the [facility] she lives at but would benefit from additional time with other veterans as well at the [facility] programs. [employer] discussed with 's son that their preferred agency in [place] is unable to provide transport to the the geographic area - [facility]. The following adult day programs are not able to provide transport to [facility]) geographic area: [address] [address] FAX [phone] Fang: [phone] Tax ID: [id number] [employer] confirmed with intake Lindsay - does not provide transport to the [facility] area Azael Philippe [facility] [place] (per [facility] search for programs) [address] [place] [address] FAX [phone] Ally - unable to provide transport to the geographic area - program only provides transport within 6 miles [employer] has left messages for the following adult day program agencies [facility] [address] [place] [address] FAX [phone] Tax ID: [id number] [employer] left voicemail for Karime 12/05/23 to determine if transport provided by the adult day program can be provided to the geographic area - [facility]. [address] [address] FAX [phone] Tax ID: [id number] [employer] left voicemail 12/05/23 with intake - to confirm provides transport to [place] [facility] (not golf) [facility] [address] [address] FAX [phone] Tax ID: [id number] [employer] left VM with intake - to confirm that they only provide transport within 20 miles of their address (the lives 30 miles from the address - the agency also has a 2 day/week minimum for services and is approved for 1 day/week) - will update once program calls back [employer] let the 's son know that once credit underwriter hears back from the 3 programs remaining above to call back to determine if they can provide transport, credit underwriter will return call to 's son to discuss. pending calls back from programs listed above. /es/ JASPAL TOLLIVER, still operator brandy Care Trans Router Signed: 12/05/2023 13:38 12/07/2023 ADDENDUM STATUS: COMPLETED Transport is approved for adult day program, utilizes a van services for medical appointments at the [place]. However, credit underwriter received calls back from all adult day programs called/inquired if transport can be provided to the [facility], all programs were not able to provide transport to the geographic area. [address] [address] FAX [phone] Tax ID: [id number] Per intake Brittani - this adult day program does not have direct transport and would require the drive at a meeting point at a park and ride in [place] then get on a bus to the adult day program. Brittani reported no direct transport provided by this program. Kremlin's son concerned about 's driving hence the request for assistance with transport to the [facility] program. Count Includes [facility] [address] [place] [address] FAX [phone] Fang: [phone] Tax ID: [id number] Confirmed with intake Lindsay - does not provide transport to the [facility] area [place] [address] [place] [address] FAX [phone] Tax ID: [id number] Intake Kendy confirmed unable to transport - transport to [place] [facility] ([facility]) [facility] [address] [place] [address] FAX [phone] Tax ID: [id number] Tessa intake - states they service 20 miles - is 30+ miles from the address. Azael [facility] [place] [address] [place] [address] FAX [phone] Ally - only provides transport within 6 miles - lives out of their service area. [employer] called back 's son to let him know updates as stated above. Kremlin's son Aman stated the utilizes a van services for medical appointments at the [place] and stated that he coordinates these van rides with Cassandra and Devi - son stated he will reach out to them to see if they can provide a van ride for the 1x/week for the adult day program in [place]. (requesting to enroll at [facility] d/t closest to 's address). Pending call back from 's son to determine if their van services the utilizes for medical appointments can provide the transport to the adult day program. [employer] will cc and pcp team for situational awareness. /baltazar/ JASPAL TOLLIVER, still operator brandy Care Trans Router Signed: 12/07/2023 10:15 Receipt Acknowledged By: 12/07/2023 11:25 /es/ ROSAURA LEVY SLASHER RUNNER, [employer] 12/07/2023 11:44 /es/ PATRICIA NOGUEIRA M.D. STAFF PHYSICIAN for NATALIA [employer] 12/07/2023 10:48 /es/ MICKI JAIN REGISTERED NURSE MERI HUSAIN [facility] Dec 07, 2023 10:06 AM ADDENDUM: LOCAL TITLE: Addendum STANDARD TITLE: ADDENDUM DATE OF NOTE: DEC 07, 2023@10:06:22 ENTRY DATE: DEC 07, 2023@10:06:23 AUTHOR: MERI HUSAIN COSIGNER: URGENCY: STATUS: COMPLETED Transport is approved for adult day program, utilizes a van services for medical appointments at the [place]. However, credit underwriter received calls back from all adult day programs called/inquired if transport can be provided to the [facility], all programs were not able to provide transport to the geographic area. [facility] [address] [place] [address] FAX [phone] Tax ID: [id number] Per intake Brittani - this adult day program does not have direct transport and would require the drive at a meeting point at a park and ride in [place] then get on a bus to the adult day program. Brittani reported no direct transport provided by this program. Kremlin's son concerned about 's driving hence the request for assistance with transport to the [facility] program. Count Includes [facility] [address] [place] [address] FAX [phone] Fang: [phone] Tax ID: [id number] Confirmed with intake Lindsay - does not provide transport to the [place] [address] [place] [address] FAX [phone] Tax ID: [id number] Intake Kendy confirmed unable to transport - transport to [facility] ([facility]) [facility] [place] [address] [place] [address] FAX [phone] Tax ID: [id number] Tessa intake - states they service 20 miles - is 30+ miles from the address. Azael Philippe [facility] [address] [place] [address] FAX [phone] Ally - only provides transport within 6 miles - lives out of their service area. [employer] called back 's son to let him know updates as stated above. Kremlin's son Aman stated the utilizes a van services for medical appointments at the [place] and stated that he coordinates these van rides with Cassandra and Devi - son stated he will reach out to them to see if they can provide a van ride for the 1x/week for the adult day program in [place]. (requesting to enroll at [facility] d/t closest to 's address). Pending call back from 's son to determine if their van services the utilizes for medical appointments can provide the transport to the adult day program. [employer] will cc SW and pcp team for situational awareness. /es/ MERI HUSAIN, MSN, still operator brandy Care Trans Router Signed: 12/07/2023 10:15 Receipt Acknowledged By: 12/07/2023 11:25 /es/ IMANI CRAFT [facility] SLASHER RUNNER, [facility] 12/07/2023 11:44 /es/ PATRICIA NOGUEIRA M.D. STAFF PHYSICIAN for NATALIA SALES 12/07/2023 10:48 /es/ MICKI JAIN REGISTERED NURSE --- Original Document --- 12/05/23 PERSONAL CARE SERVICES CASE MIX TOOL: HCBS Case Mix & Budget Tool (CASE MIX) Date Given: 12/05/2023 - completed with perfecto Newton Clinician: Meri Husain Location: [facility] [place]: Yariel Mobley SSN: [id number] : [birth year] ([birth year]) Gender: Female Type of Evaluation: Initial Anticipated Start Date: 12/12/2023 Anticipated Length of Service: 6 months Case Mix Level: A ADL Category: Low Questions and Answers: Q1. DRESSING 0 Can dress without help of any kind. Q2. GROOMING 0 Can comb your hair, wash your face, shave or brush your teeth without help of any kind. Q3. BATHING 0 Can bathe or shower without any help. Q4. EATING 0 Can eat without help of any kind. Q5. BED MOBILITY 0 Can move in bed without any help. Q6. TRANSFERRING 0 Can get in and out of a bed or chair without help of any kind. Q7. WALKING 0 Walk without help of any kind. Q8. BEHAVIOR 0 Behavior requires no intervention. Q9. COMMUNICATION 0 Understood. Q10. TOILETING *2 Have accidents sometimes, but not more than once a week. Q11. MDS HC 2.0/CPS Cognitive Skill for Daily Decision Making 0 Independent - decisions consistent/reasonable. Q12. MDS 2.0/CPS: Short Term Memory (recall of what was learned or known) 1 Memory problem Q13. SPECIAL TREATMENTS 0 No TX Q14. CLINICAL MONITORING 0 Less than once a day Q15. SPECIAL NURSING No Q16. NEUROMUSCULAR DIAGNOSIS Yes COMMENTS Pt. with hx of breast ca, CAD, Hemifacial spasm of left facial nerve and contributing to the request to initiate adult day health care services. see notes below for additional info if needed. SOURCES 1. Person, 2. Informant, 3. Medical Record /es/ MERI HUSAIN MSN, still operator brandy Care Trans Router Signed: 12/05/2023 13:25 12/05/2023 ADDENDUM STATUS: COMPLETED Main contact for (if other than ): Name: aman Relationship to : son /caregiver educated on Personal Care Services (PCS) available: Yes PCS needed/requested by /caregiver: Home Health Aide (NURSE EXTERN) - no Homemaking (HM) - no In-Home Respite - no Adult Day Health Care (ADHC) - yes Personal Care Services Case Mix Classification: A See Personal Care Services Case Mix Tool Note dated 12/05/23 Are first range hours adequate for this ? Yes. Distribution of hours: ADHC 1 days/week (1 day of ADHC = 5 hours) During opt in call, credit underwriter provided education to 's son that qualifies for 1 day/week for adult day health care services, based on assessment. utilizes a [facility] services for medical appointments. ind with all ADLs per son's report and is requesting to start adult day program for increased socialization. Son reported that the currently has some socialization at the [facility] she lives at but would benefit from additional time with other veterans as well at the [facility] programs. [employer] discussed with 's son that their preferred agency in [place] is unable to provide transport to the the geographic area - [facility]. The following adult day programs are not able to provide transport to [facility]) geographic area: [address] [address] FAX [phone] Fang: [phone] Tax ID: [id number] [employer] confirmed with elidia Montoya - does not provide transport to the [facility] Azael Plunkett (per [facility] search for programs) [address] [place] [address] FAX [phone] Ally - unable to provide transport to the [facility] area - program only provides transport within 6 miles [employer] has left messages for the following adult day program agencies [address] [address] FAX [phone] Tax ID: [id number] [employer] left voicemail for Karime 12/05/23 to determine if transport provided by the adult day program can be provided to the geographic area - [facility]. [facility] [address] [place] [address] FAX [phone] Tax ID: [id number] [employer] left voicemail 12/05/23 with intake - to confirm provides transport to [place] [facility] (not golf) [facility] [address] [place] [address] FAX [phone] Tax ID: [id number] [employer] left VM with intake - to confirm that they only provide transport within 20 miles of their address (the lives 30 miles from the address - the agency also has a 2 day/week minimum for services and is approved for 1 day/week) - will update once program calls back [employer] let the 's son know that once credit underwriter hears back from the 3 programs remaining above to call back to determine if they can provide transport, credit underwriter will return call to 's son to discuss. pending calls back from programs listed above. /baltazar/ MERI HUSAIN, MSN, still operator brandy Care Trans Router Signed: 12/05/2023 13:38 MERI HUSAIN [facility] Dec 05, 2023 01:05 PM GERIATRIC MEDICINE NOTE: LOCAL TITLE: PERSONAL CARE SERVICES CASE MIX TOOL STANDARD TITLE: GERIATRIC MEDICINE NOTE DATE OF NOTE: DEC 05, 2023@13:05:34 ENTRY DATE: DEC 05, 2023@13:05:34 AUTHOR: MERI HUSAIN EXP COSIGNER: URGENCY: STATUS: COMPLETED PERSONAL CARE SERVICES CASE MIX TOOL Has ADDENDA HCBS Case Mix & Budget Tool (CASE MIX) Date Given: 12/05/2023 - completed with son Aman Clinician: Meri Husain Location: [facility] : Yariel Mobley SSN: [id number] : [birth year] ([birth year]) Gender: Female Type of Evaluation: Initial Anticipated Start Date: 12/12/2023 Anticipated Length of Service: 6 months Case Mix Level: A ADL Category: Low Questions and Answers: Q1. DRESSING 0 Can dress without help of any kind. Q2. GROOMING 0 Can comb your hair, wash your face, shave or brush your teeth without help of any kind. Q3. BATHING 0 Can bathe or shower without any help. Q4. EATING 0 Can eat without help of any kind. Q5. BED MOBILITY 0 Can move in bed without any help. Q6. TRANSFERRING 0 Can get in and out of a bed or chair without help of any kind. Q7. WALKING 0 Walk without help of any kind. Q8. BEHAVIOR 0 Behavior requires no intervention. Q9. COMMUNICATION 0 Understood. Q10. TOILETING *2 Have accidents sometimes, but not more than once a week. Q11. MDS HC 2.0/CPS Cognitive Skill for Daily Decision Making 0 Independent - decisions consistent/reasonable. Q12. MDS 2.0/CPS: Short Term Memory (recall of what was learned or known) 1 Memory problem Q13. SPECIAL TREATMENTS 0 No TX Q14. CLINICAL MONITORING 0 Less than once a day Q15. SPECIAL NURSING No Q16. NEUROMUSCULAR DIAGNOSIS Yes COMMENTS Pt. with hx of breast ca, CAD, Hemifacial spasm of left facial nerve and contributing to the request to initiate adult day health care services. see notes below for additional info if needed. SOURCES 1. Person, 2. Informant, 3. Medical Record /es/ MERI HUSAIN, MSN, still operator brandy Care Trans Router Signed: 12/05/2023 13:25 12/05/2023 ADDENDUM STATUS: COMPLETED Main contact for (if other than ): Name: aman Relationship to : perfecto /caregiver educated on Personal Care Services (PCS) available: Yes PCS needed/requested by /caregiver: Home Health Aide (NURSE EXTERN) - no Homemaking (HM) - no In-Home Respite - no Adult Day Health Care (ADHC) - yes Personal Care Services Case Mix Classification: A See Personal Care Services Case Mix Tool Note dated 12/05/23 Are first range hours adequate for this ? Yes. Distribution of hours: ADHC 1 days/week (1 day of ADHC = 5 hours) During opt in call, credit underwriter provided education to 's son that [place] qualifies for 1 day/week for adult day health care services, based on assessment. utilizes a [facility] services for medical appointments. [place] ind with all ADLs per son's report and is requesting to start adult day program for increased socialization. Son reported that the currently has some socialization at the [facility] she lives at but would benefit from additional time with other veterans as well at the [facility] programs. [employer] discussed with 's son that their preferred agency in [place] is unable to provide transport to the the geographic area - [facility]. The following adult day programs are not able to provide transport to [facility]) geographic area: [address] [address] FAX [phone] Fang: [phone] Tax ID: [id number] [employer] confirmed with intake Lindsay - does not provide transport to the [facility] Azael [facility] (per [facility] search for programs) [address] [place] [address] FAX [phone] Ally - unable to provide transport to the geographic area - program only provides transport within 6 miles [employer] has left messages for the following adult day program agencies [facility] [address] [place] [address] FAX [phone] Tax ID: [id number] [employer] left voicemail for Karime 12/05/23 to determine if transport provided by the adult day program can be provided to the geographic area - [facility]. [facility] [place] [address] [place] [address] FAX [phone] Tax ID: [id number] [employer] left voicemail 12/05/23 with intake - to confirm provides transport to [facility] (not golf) [facility] [address] [address] FAX [phone] Tax ID: [id number] [employer] left VM with intake - to confirm that they only provide transport within 20 miles of their address (the lives 30 miles from the address - the agency also has a 2 day/week minimum for services and is approved for 1 day/week) - will update once program calls back [employer] let the 's son know that once credit underwriter hears back from the 3 programs remaining above to call back to determine if they can provide transport, credit underwriter will return call to 's son to discuss. pending calls back from programs listed above. /baltazar/ JASPAL TOLLIVER, still operator brandy Care Trans Router Signed: 12/05/2023 13:38 12/07/2023 ADDENDUM STATUS: COMPLETED Transport is approved for adult day program, utilizes a van services for medical appointments at the [place]. However, credit underwriter received calls back from all adult day programs called/inquired if transport can be provided to the [facility], all programs were not able to provide transport to the geographic area. [facility] [address] [place] [address] FAX [phone] Tax ID: [id number] Per intake Brittani - this adult day program does not have direct transport and would require the drive at a meeting point at a park and ride in [place] then get on a bus to the adult day program. Brittani reported no direct transport provided by this program. 's son concerned about 's driving hence the request for assistance with transport to the [facility] program. Count Includes [facility] [address] [place] [address] FAX [phone] Fang: [phone] Tax ID: [id number] Confirmed with intake Lindsay - does not provide transport to the [facility] area [address] [address] FAX [phone] Tax ID: [id number] Intake Kendy confirmed unable to transport - transport to [facility] ([facility]) Touching [facility] [address] [address] FAX [phone] Tax ID: [id number] Tessa intake - states they service 20 miles - is 30+ miles from the address. Azael Jose Martin [facility] [address] [place] [address] FAX [phone] Ally - only provides transport within 6 miles - lives out of their service area. [employer] called back 's son to let him know updates as stated above. 's son Aman stated the utilizes a van services for medical appointments at the [place] and stated that he coordinates these van rides with Cassandra and Devi - son stated he will reach out to them to see if they can provide a van ride for the 1x/week for the adult day program in [place]. (requesting to enroll at [facility] d/t closest to 's address). Pending call back from 's son to determine if their van services the utilizes for medical appointments can provide the transport to the adult day program. [employer] will cc SW and pcp team for situational awareness. /es/ MERI HUSAIN, MSN, still operator brandy Care Trans Router Signed: 12/07/2023 10:15 Receipt Acknowledged By: 12/07/2023 11:25 /baltazar/ ROSAURA LEVY SLASHER RUNNER, [facility] 12/07/2023 11:44 /es/ PATRICIA NOGUEIRA M.D. STAFF PHYSICIAN for [employer] 12/07/2023 10:48 /es/ MICKI JAIN REGISTERED NURSE 12/22/2023 ADDENDUM STATUS: COMPLETED In reference to [facility] Consult #[id number] [facility] RE[facility] - NON SKILLED dated 11/30/23, consult cancelled d/t: No call back from 's son - 's son reported he would determine if the 's private van services can provide transport to the [place] adult day program d/t no adult day health care transport available in the 's geograpgic area. If 's son calls back and can provide transport to [facility] facility - credit underwriter will edit/resubmit the consult and process. will cc pcp and SW for situational awareness. /baltazar/ MERI HUSAIN, JASPAL, still operator brandy Care Trans Router Signed: 12/22/2023 11:20 Receipt Acknowledged By: * AWAITING SIGNATURE * IMANI CRAFT * AWAITING SIGNATURE * NATALIA TREJO * AWAITING SIGNATURE * MICKI JAIN [facility]
--- OUTSIDE RECORDS SUMMARY | 2024-02-17 16:54 | XMS_ITS | Encounter Summary ---
Author Name [facility] Organization [facility] [place] Address [address] [place] [address] Care Team Providers Care Licensed Midwife Name Role Phone DOMINIC TREJO Primary Care [...] Patient's Relationship to Policy Talavera [facility] ([id number]) PRESCRIPT ION GEHA May 30, 2005 [id number] [phone] SONIA MOBLEY PATIENT GEHA (SECONDARY ) PREFERRED PROVIDER ORGANIZAT ION (PPO) GEHA A/B PRIMA RY May 30, 2005 [id number] [phone] SONIA MOBLEY PATIENT GEHA (SECONDARY ) PREFERRED PROVIDER ORGANIZAT ION (PPO) GEHA A&B PRIMA RY May 30, 2005 [id number] SONIA MOBLEY PATIENT [facility] PREFERRED PROVIDER ORGANIZAT ION (PPO) DO NOT USE May 30, 2005 [id number] TONI BRITO PATIENT MEDICARE (WNR) MEDICARE (M) PART A Jan 29, 2000 PART A [id number] [phone] ITZSONIA AJ PATIENT MEDICARE (WNR) MEDICARE (M) PART B Jan 29, 2000 PART B [id number] [phone] SONIA MOBLEY LUCINAHEMALATHA PATIENT Selected Encounter This section includes the information on record at [place] for the Encounter. Date/Time Encounter Type Encounter Description Reason Pro vider Source Dec 20, 2023 09:35 AM Outpatient Encounter TELEPHONE PRIMARY CARE IHE Encounter Template Text not used by MS Plan of Treatment: Future Appointments (+ 6 months) and Future Tests (+/- 45 days) The Plan of Treatment section includes future care activities for the patient from all [place] treatmentfacilities. This section includes future appointments and future orders which are active, pending or scheduled. Future Appointments This section includes appointments that were scheduled to occur 6 months from the date of the Encounter, up to a maximum of 20 appointments. The data comes from all [facility]. Appointment Date/Time Appointment Type Appointme nt Facility Name Dec 22, 2023 08:30 AM AMBULATORY - PSYCHIATRY [facility] Jan 12, 2024 12:30 PM AMBULATORY - SURGERY [facility] Mar 06, 2024 09:00 AM AMBULATORY - NONE [facility] Mar 06, 2024 10:00 AM AMBULATORY - MEDICINE [facility] Mar 08, 2024 08:00 AM AMBULATORY - NONE [facility] Mar 27, 2024 10:30 AM AMBULATORY - REHAB MEDICIN E [facility] May 14, 2024 09:20 AM AMBULATORY - SURGERY [facility] Active, Pending, and Scheduled Orders This section includes a listing of several types of active, pending, and scheduled orders, including clinic medications orders, diagnostic test orders, procedure orders and consult orders; where the start date of the order is 45 days before the date of the Encounter or 45 days after the date of theEncounter. The data comes from all [facility]. Test Date/Time Test Type Test Details Facility Name Dec 19, 2023 12:00 AM Laboratory - Chemi stry Order BASIC METABOLIC PANEL+MG PLASMA SP ONCE [facility] Social History: Smoking Status (Most current) and Tobacco Use (All prior to encounter date) This section includes the most current, and the historical, smoking and tobacco- related health factors from the [place] facility where the Encounter took place. Current Smoking Status This section includes the most current smoking, or tobacco-related health factor, from the [facility] where the Encounter took place. Date/Time Current Smoking Status Comment Robyn ity Sep 12, 2023 10:30 AM VA-TOBACCO NEVER USED [facility] Tobacco Use History This section includes a history of the smoking, or tobacco-related health factors, that were collected on or before the date of the Encounter. The data comes from the [place] facility where the Encounter took place. Date/Time Smoking Status/Tobacco Use Comment F acnelia October 18, 2022 10:00 AM VA-TOBACCO NEVER USED [facility] September 28, 2021 09:30 AM VA-TOBACCO NEVER USED [facility] Nov 10, 2020 08:30 AM MS-TOBACCO NEVER USED [facility] Encounter Notes: All associated encounter notes This section contains the clinical notes associated to the Encounter. Date/Time Encounter Note(s) Provider Source Dec 20, 2023 09:35 AM REPORT OF CONTACT: LOCAL TITLE: APPOINTMENT SCHEDULING NOTE STANDARD TITLE: REPORT OF CONTACT DATE OF NOTE: DEC 20, 2023@09:35 ENTRY DATE: DEC 20, 2023@09:35:36 AUTHOR: SHAYNE LOPEZ EXP COSIGNER: URGENCY: STATUS: COMPLETED Attempted to schedule Return to clinic (RTC) Contact attempt made to [place] 1st attempt Telephone Called pt to schedule appt with #[id number] for HTN f/u. Left VM to call & schedule. /baltazar/ SHAYNE LOPEZ SERVICE CAR DRIVER Signed: 12/20/2023 09:36 SHAYNE LOPEZ [facility]
--- OUTSIDE RECORDS SUMMARY | 2024-02-17 16:55 | XMS_ITS | Encounter Summary ---
Author Organization [facility] Address [address] [place] [address] Care Team Providers Care Thermoforming Operator Name Role Phone Unavailable Primary Care Provider Unavailabl e Encounter Details Date Type Department Care Team (Late st Contact Info) Description 11/08/2016 Historical Ophthalmology [facility] Ole Viera Jr., M.D. [address] [phone] Social History Tobacco Use Types Packs/Day Years [...] VF OU CDM Reports - EYEGEN Id: [id number] Status: Fnl documented in this encounter Plan of Treatment Not on file documented as of this encounter Visit Diagnoses Not on filedocumented in this encounter Additional Health Concerns Assessment Noted Time PHQ-9 Depression Total Score: 0 09/24/19 15 3:20 PM CDT documented as of this encounter
--- OUTSIDE RECORDS SUMMARY | 2024-02-17 16:55 | XMS_ITS | Clinical Summary ---
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) 11/28/2023 Telephone [facility] [address] [place] [address] Olinda Finch AuD Hearing Aid from Last 3 Months Social History Tobacco [...] T Respiratory Rate 16 07/07/2020 3:42 PM IMAGING MANAGER Oxygen Saturation 98% 11/05/2021 2:59 PM CDT Inhaled Oxygen Concentration - - Weight 72.3 kg (159 lb 8 oz) 11/05/2021 2:59 PM CDT Height 162.6 cm (5' 4) 07/06/2020 1:06 AM IMAGING MANAGER Body Mass Index 27.38 07/06/2020 1:06 AM IMAGING MANAGER Plan of Treatment Health Maintenance Due Date Last Done Comments Tdap 1946 Depression screening for age 12+ 1947 BMI (ht and wt on same day) for age 18+ 1953 Tetanus booster 1955 Zoster (shingles) series for age 50+ (1 of 2) 1985 RSV vaccine for adults or (1 - 1-dose 60+ series) 1995 Medicare Wellness for age 65+ 02/14/2000 Pneumococcal series for age 65+ (1 of 1 - PCV) 02/14/2000 COVID-19 vaccine series (2022-24 season) 2024 03/03/2023, 06/29/2022, 04/01/2022, Additional history exists Influenza for age 65+ 01/29/2024 DEXA/DXA scan for age 65+ Completed 11/23/2021 Procedures Procedure Name Priority Date/Time Associated Diagnosis [...] Patients: Results are automatically released to your [employer] account once available, in compliance with federal regulations. This means that you may see your results before your provider has had a chance to review them. Please allow 2-3 business days for your provider to comment on the results. XR DXA Bone Mineral Density (BMD) EXAM LOCATION: [address] [id number] PATIENT NAME: Yariel Gutierres DATE OF : [...] two scanners are made by the same healthcare consulting manager. PROCEDURE: Dual-energy x-ray absorptiometry performed with routine [...] Comments Code Status Discussion: Discussed Care Teams Residential Direct Support Professional Relationship Specialty Start Date End Date [place] [address] PCP - General 11/05/21
--- OUTSIDE RECORDS SUMMARY | 2024-02-17 16:55 | XMS_ITS ---
Author Organization [facility] Address [address] [place] [address] Care Team Providers Care Swimming Pool Installer And Servicer Name Role Phone Unavailable Unavailable Unavailable Surgery Details Not on file Complications Check Surgery Details section. Procedure Estimated Blood Loss Check Surgery Details section. Procedure Findings Check Surgery Details section. Procedure Specimens Taken Check Surgery Details section.
--- OUTSIDE RECORDS SUMMARY | 2024-02-17 16:55 | XMS_ITS | Encounter Summary ---
Author Name [facility] Organization [facility] [place] Address [address] [place] [address] Care Team Providers Care Professor Of Marketing Name Role Phone DOMINIC TREJO Primary Care [...] Patient's Relationship to Policy Talavera [facility] ([id number]) PRESCRIPT ION GEHA May [birth year], 2005 [id number] [phone] SONIA MOBLEY PATIENT GEHA (SECONDARY ) PREFERRED PROVIDER ORGANIZAT ION (PPO) GEHA A/B PRIMA RY May [birth year] 2005 [id number] SONIA MOBLEY PATIENT GEHA (SECONDARY ) PREFERRED PROVIDER ORGANIZAT ION (PPO) GEHA A&B PRIMA RY May 30, 2005 [id number] SONIA MOBLEY PATIENT [facility] PREFERRED PROVIDER ORGANIZAT ION (PPO) DO NOT USE May 30, 2005 [id number] ALISHATONI May PATIENT MEDICARE (WNR) MEDICARE (M) PART A Jan 29, 2000 PART A [id number] [phone] SONIA MOBLEY REINADEJUAN PATIENT MEDICARE (WNR) MEDICARE (M) PART B Jan 29, 2000 PART B [id number] [phone] SONIA MOBLEY PATIENT Selected Encounter This section includes the information on record at ID for the Encounter. Date/Time Encounter Type Encounter Description Reason Pro vider Source Jan 03, 2024 09:49 AM Outpatient Encounter TELEPHONE PRIMARY CARE IHE Encounter Template Text not used by ID Plan of Treatment: Future Appointments (+ 6 months) and Future Tests (+/- 45 days) The Plan of Treatment section includes future care activities for the patient [facility]. This section includes future appointments and future orders which are active, pending or scheduled. Future Appointments This section includes appointments that were scheduled to occur 6 months from the date of the Encounter, up to a maximum of 20 appointments. The data comes from all [facility]. Appointment Date/Time Appointment Type Appointme nt Facility Name Jan 12, 2024 12:30 PM AMBULATORY - SURGERY [facility] Mar 06, 2024 09:00 AM AMBULATORY - NONE [facility] Mar 06, 2024 10:00 AM AMBULATORY - MEDICINE [facility] Mar 08, 2024 08:00 AM AMBULATORY - NONE [facility] Mar 27, 2024 10:30 AM AMBULATORY - REHAB MEDICIN E [facility] May 14, 2024 09:20 AM AMBULATORY - SURGERY [facility] Active, Pending, and Scheduled Orders This section includes a listing of several types of active, pending, and scheduled orders, including clinic medications orders, diagnostic test orders, procedure orders and consult orders; where the start date of the order is 45 days before the date of the Encounter or 45 days after the date of theEncounter. The data comes from all [facility]. Test Date/Time Test Type Test Details Facility Name Dec 19, 2023 12:00 AM Laboratory - Chemi stry Order BASIC METABOLIC PANEL+MG PLASMA SP ONCE [facility] Feb 14, 2024 02:03 PM Consult Order [facility] Cons Treating Engineer's Choice [facility] Social History: Smoking Status (Most current) and Tobacco Use (All prior to encounter date) This section includes the most current, and the historical, smoking and tobacco- related health factors from the [facility] where the Encounter took place. Current Smoking Status This section includes the most current smoking, or tobacco-related health factor, from the ID facility where the Encounter took place. Date/Time Current Smoking Status Comment Robyn baez Sep 12, 2023 10:30 AM VA-TOBACCO NEVER USED [facility] Tobacco Use History This section includes a history of the smoking, or tobacco-related health factors, that were collected on or before the date of the Encounter. The data comes from the ID facility where the Encounter took place. Date/Time Smoking Status/Tobacco Use Comment F manoj October 18, 2022 10:00 AM VA-TOBACCO NEVER USED [facility] September 28, 2021 09:30 AM VA-TOBACCO NEVER USED [facility] Nov 10, 2020 08:30 AM VA-TOBACCO NEVER USED [facility] Encounter Notes: All associated encounter notes This section contains the clinical notes associated to the Encounter. Date/Time Encounter Note(s) Provider Source Jan 03, 2024 09:49 AM REPORT OF CONTACT: LOCAL TITLE: APPOINTMENT SCHEDULING NOTE STANDARD TITLE: REPORT OF CONTACT DATE OF NOTE: JAN 03, 2024@09:49 ENTRY DATE: JAN 03, 2024@09:49:24 AUTHOR: SHAYNE LOPEZ EXP COSIGNER: URGENCY: STATUS: COMPLETED Attempted to schedule Return to clinic (RTC) Contact attempt made to [place] 2nd attempt Telephone Called pt to schedule appt with #[id number] for HTN f/u. Left VM to call & schedule. /baltazar/ SHAYNE Mckinley HEAD READERS' ADVISORY SERVICE LIBRARIAN Signed: 01/03/2024 09:49 SHAYNE LOPEZ [facility]
--- OUTSIDE RECORDS SUMMARY | 2024-02-17 16:55 | XMS_ITS | Referral Summary ---
Author Organization [facility] Address [address] [place] [address] Care Team Providers Care Take Up Operator Name Role Phone Unavailable Primary Care Provider Unavailabl e Source Comments Patient records contain information from all sites at [facility]. For routine questions regarding patient records, call [phone] during business hours, M-F 8:00 AM - 5:00 PM Central Time. Record requests for emergency care only can be directed to [phone] at any time.[facility] Allergies No known active allergies Medications [...] mL 5 10/31/2019 Active Additional Information Patient not taking.Reported on 10/13/2023 metoprolol succinate (TOPROL-XL) 25 mg 24 hr [...] a day. 5 mL 1 10/29/2022 Active Additional Information Patient not taking.Reported on 10/13/2023 ketotifen (ZADITOR) 0.025 % (0.035 %) ophthalmic solution Administer 1 drop into both eyes 2 (two) times a day. 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 Overview (10/19/2016): Atherosclerosis Extremity w Claudication Coronary Artery Disease [place] Vessel 11/30/2007 Hypertension Essential Primary 03/08/2003 Resolved Problems Problem Noted Date Diagnosed Date Resolved Date Hypertension Essential Primary 01/03/2006 08/04/2020 Overview (10/19/2016): Hypertension Labile Immunizations Name Administration Dates Next [...] Comments Blood Pressure 151/57 08/04/2020 9:20 AM PARACHUTE SUPERVISOR Pulse 60 08/04/2020 9:05 AM PARACHUTE SUPERVISOR Temperature 36.5 ??C (97.7 ??F) 02/28/2019 9:34 AM CD T Respiratory Rate 16 02/15/2018 9:14 AM CDT Oxygen Saturation 98% 08/04/2020 9:05 AM PARACHUTE SUPERVISOR Inhaled Oxygen Concentration - - Weight 72.7 kg (160 lb 4.4 oz) 08/04/2020 9:05 A M PARACHUTE SUPERVISOR Height 160 cm (5' 2.99) 02/28/2019 9:34 AM CDT Body Mass Index 28.4 02/28/2019 9:34 AM CDT Plan of Treatment Not on file Medical Devices Implanted Type Area Slubber Runner Device Identifier Shelf Expiration Date Model / Serial / Lot Protege Everflex 7 X 80 X 120 - [id number] [id number] Implanted:Qty: 1 on 06/27/2008 Vascular Stent ev3 Description:Device Manufactu rer - EV3. Device Status Text - [id number]. Procedures Procedure Name Priority Date/Time Associated Diagnosis Comments CREATININE WITH EGFR, S/P Routine 03/02/2017 11:27 AM CDT SODIUM, S/P Routine 06/13/2014 10:30 AM PARACHUTE SUPERVISOR POTASSIUM, S/P Routine 06/13/2014 10:30 AM PARACHUTE SUPERVISOR from Last 3 Months or Most Recently Relevant to Health Maintenance Results * (ABNORMAL) Creatinine with Estimated GFR (MDRD) (03/02/2017 11:27 AM CDT) Creatinine 0.5(L) 0.6 - 1.1 MG/DL [facility] [place] 03/02/2017 11:2 7 AM CDT 03/02/2017 11:27 AM CDT Kellen Kevin APRN, C.N.P., M.S. LAB BLOOD ADD-ON [facility] [place] [address] * Sodium (06/13/2014 10:30 AM PARACHUTE SUPERVISOR) Sodium, S 137 135 - 145 MMOL/L [facility] [place] 06/13/2014 10:3 0 AM PARACHUTE SUPERVISOR 06/13/2014 10:30 AM PARACHUTE SUPERVISOR Kellen Kevin APRN, C.N.P., M.S. LAB BLOOD ADD-ON [facility] [place] [address] * Potassium (06/13/2014 10:30 AM PARACHUTE SUPERVISOR) Potassium, S 4.1 3.6 - 5.2 MMOL/L [facility] [place] 06/13/2014 10:3 0 AM PARACHUTE SUPERVISOR 06/13/2014 10:30 AM PARACHUTE SUPERVISOR Kellen Kevin APRN, C.N.P., M.S. LAB BLOOD ADD-ON [facility] [place] [address] from Last 3 Months or Most Recently Relevant to Health Maintenance Insurance Payer Benefit Plan / Group Subscriber ID Effective Dates Phone Address Type MEDICARE MEDICARE A AND B [id number] 2000-Pres ent [address] [place] [address] Medicare [employer] [facility] [employer]AL RETIREE [facility] [id number] 2023-05/01 [address] [address] [place] [address] Indemnity Advance Directives For more information, please contact: [phone] Documents on File Type Date Recorded Patient Deck Supervisor Expl anation Advance Directives 06/27/2008 12:00 AM Leg acy document. See document viewer.
--- OUTSIDE RECORDS SUMMARY | 2024-02-17 16:55 | XMS_ITS | Encounter Summary ---
Author Organization [facility] Address [address] [place] [address] Care Team Providers Care Complaint Operator Name Role Phone Unavailable Primary Care Provider Unavailabl e Encounter Details Date Type Department Care Team (Late st Contact Info) Description 10/31/2015 Historical Ophthalmology [facility] Ole Viera Jr., M.D. [address] [phone] Social History Tobacco Use Types Packs/Day Years [...] VF OU CDM Reports - EYEGEN Id: [id number] Status: Fnl documented in this encounter Plan of Treatment Not on file documented as of this encounter Visit Diagnoses Not on filedocumented in this encounter Additional Health Concerns Assessment Noted Time PHQ-9 Depression Total Score: 0 04/27/20 15 3:20 PM CDT documented as of this encounter
--- OUTSIDE RECORDS SUMMARY | 2024-02-17 16:55 | XMS_ITS | Clinical Summary ---
Author Organization [facility] Address [address] [place] [address] Care Team Providers Care Store Facility Technician Name Role Phone Unavailable Primary Care Provider Unavailabl e Source Comments Patient records contain information from all sites at [facility]. For routine questions regarding patient records, call [phone] during business hours, M-F 8:00 AM - 5:00 PM Central Time. Record requests for emergency care only can be directed to [phone] at any time.[facility] Allergies No known active allergies [...] Atherosclerosis Extremity w Claudication Coronary Artery Disease [place] Vessel 11/30/2007 Hypertension Essential Primary 03/08/2003 Resolved [...] Comments Blood Pressure 151/57 08/04/2020 9:20 AM COMMERCIAL SALES CONSULTANT Pulse 60 08/04/2020 9:05 AM COMMERCIAL SALES CONSULTANT Temperature 36.5 ??C (97.7 ??F) 02/28/2019 9:34 AM CD T Respiratory Rate 16 02/15/2018 9:14 AM CDT Oxygen Saturation 98% 08/04/2020 9:05 AM COMMERCIAL SALES CONSULTANT Inhaled Oxygen Concentration - - Weight 72.7 kg (160 lb 4.4 oz) 08/04/2020 9:05 A M COMMERCIAL SALES CONSULTANT Height 160 cm (5' 2.99) 02/28/2019 9:34 [...] PHQ-2) 05/30/2023 Fall Risk Screen (Annual) 05/30/2023 COVID-19 Vaccine (2022-2 4 season) 2024 03/03/2023, 06/29/2022, 04/01/2022, Additional history exists Influenza Vaccine (#1) 2024 , 03/02/2022, 02/21/2022, Additional history exists DTaP,Tdap,and Td Vaccines (2 - Td or Tdap) 12/11/2024 12/11/2014, 05/13/2009 Zoster Vaccines Completed 12/19/2018, 07/28, 08/02/2009 Medical Devices Implanted Type Area Flash Oven Operator Device Identifier Shelf Expiration Date Model / Serial / Lot Protege Everflex 7 X 80 X 120 - [id number] [id number] Implanted:Qty: 1 on 06/27/2008 Vascular Stent ev3 Description:Device Manufactu rer - EV3. Device Status Text - [id number]. Procedures Procedure Name Priority Date/Time Associated Diagnosis Comments CREATININE WITH EGFR, S/P Routine 03/02/2017 11:27 AM CDT SODIUM, S/P Routine 06/13/2014 10:30 AM COMMERCIAL SALES CONSULTANT POTASSIUM, S/P Routine 06/13/2014 10:30 AM COMMERCIAL SALES CONSULTANT from Last 3 Months or Most Recently Relevant to Health Maintenance Results * (ABNORMAL) Creatinine with Estimated GFR (MDRD) (03/02/2017 11:27 AM CDT) Creatinine 0.5(L) 0.6 - 1.1 MG/DL [facility] 03/02/2017 11:2 7 AM CDT 03/02/2017 11:27 AM CDT Kellen Kevin APRN, C.N.P., M.S. LAB BLOOD ADD-ON [facility] [address] [place], [place] [address] * Sodium (06/13/2014 10:30 AM COMMERCIAL SALES CONSULTANT) Sodium, S 137 135 - 145 MMOL/L [facility] 06/13/2014 10:3 0 AM COMMERCIAL SALES CONSULTANT 06/13/2014 10:30 AM COMMERCIAL SALES CONSULTANT Kellen Kevin APRN, C.N.P., M.S. LAB BLOOD ADD-ON [facility] [address] * Potassium (06/13/2014 10:30 AM COMMERCIAL SALES CONSULTANT) Potassium, S 4.1 3.6 - 5.2 MMOL/L [facility] 06/13/2014 10:3 0 AM COMMERCIAL SALES CONSULTANT 06/13/2014 10:30 AM COMMERCIAL SALES CONSULTANT Kellen Kevin APRN, C.N.P., M.S. LAB BLOOD ADD-ON Performing Organization Address City/[facility] Co de Phone Number [facility] [address] from Last 3 Months or Most Recently Relevant to Health Maintenance Insurance Payer Benefit Plan / Group Subscriber ID Effective Dates Phone Address Type MEDICARE MEDICARE A AND B [id number] 2000-Pres ent [address] [place] [address] Medicare [employer]AL RET[employer]REE [facility] [id number] 2023-05/01 [address] [address] [place] [address] Indemnity Advance Directives For more information, please contact: [phone] Documents on File Type Date Recorded Patient Technology Recruiter Expl anation Advance Directives 06/27/2008 12:00 AM Leg acy document. See document viewer.
--- OUTSIDE RECORDS SUMMARY | 2024-02-17 16:55 | XMS_ITS | Encounter Summary ---
Author Name [facility] [facility] [place] [facility] [place] Address [address] [place] [address] Care Team Providers Care Charcoal Unloader Name Role Phone NATALIA TREJO Primary Care [...] to Policy Talavera [facility] ([id number]) PRESCRIPT ION GEHA May 30, 2005 [id number] [phone] SONIA GUTIERRES PATIENT GEHA (SECONDARY ) PREFERRED PROVIDER ORGANIZAT ION (PPO) GEHA A/B PRIMA RY May 30, 2005 [id number] SONIA GUTIERRES PATIENT GEHA (SECONDARY ) PREFERRED PROVIDER ORGANIZAT ION (PPO) GEHA A&B PRIMA RY May 30, 2005 [id number] [phone] SONIA GUTIERRES PATIENT [facility] PREFERRED PROVIDER ORGANIZAT ION (PPO) DO NOT USE May 30, 2005 [id number] ALISHATONI May PATIENT MEDICARE (WNR) MEDICARE (M) PART A Jan 29, 2000 PART A [id number] [phone] SONIA GUTIERRES PATIENT MEDICARE (WNR) MEDICARE (M) PART B Jan 29, 2000 PART B [id number] [phone] SONIA GUTIERRES PATIENT Selected Encounter This section includes the information on record at [place] for the Encounter. Date/Time Encounter Type Encounter Description Reason Provider Source Dec 22, 2023 08:30 AM PSYCL/NRPSYC TST PHY/QHP 1ST PSYCHOLOGICAL TESTING ICD-10-CM F02.A0 Dem in other dis classd elswhr, mild, w/o beh/psych/mo od/anx PATY GAMING May Encounter Template Text not used by [place] Assessments - Encounter Diagnoses This section includes the primary and secondary diagnoses documented for the Encounter. Date/Time Primary/Secondary Diagnosis Diagnosis Name Provider Source Dec 30, 2023 11:54 AM PRIMARY Dem in other dis classd elswhr, mild, w/o beh/psych/mood/ anx PATY GAMING [facility] Plan of Treatment: Future Appointments (+ 6 months) and Future Tests (+/- 45 days) The Plan of Treatment section includes future care activities for the patient from all [place] treatmentfacilities. This section includes future appointments and future orders which are active, pending or scheduled. Future Appointments This section includes appointments that were scheduled to occur 6 months from the date of the Encounter, up to a maximum of 20 appointments. The data comes from all [place] treatment facilities. Appointment Date/Time Appointment Type Appointme nt Facility Name Jan 12, 2024 12:30 PM AMBULATORY - SURGERY [facility] Mar 06, 2024 09:00 AM AMBULATORY - NONE [facility] Mar 06, 2024 10:00 AM AMBULATORY - MEDICINE [facility] Mar 08, 2024 08:00 AM AMBULATORY - NONE [facility] Mar 27, 2024 10:30 AM AMBULATORY - REHAB [facility] May 14, 2024 09:20 AM AMBULATORY - SURGERY [facility] Active, Pending, and Scheduled Orders This section includes a listing of several types of active, pending, and scheduled orders, including clinic medications orders, diagnostic test orders, procedure orders and consult orders; where the start date of the order is 45 days before the date of the Encounter or 45 days after the date of theEncounter. The data comes from all [place] treatment facilities. Test Date/Time Test Type Test Details Facility Name Dec 19, 2023 12:00 AM Laboratory - Chemi stry Order BASIC METABOLIC PANEL+MG PLASMA SP ONCE [facility] Social History: Smoking Status (Most [...] Facil ity Sep 12, 2023 10:30 AM [place]-TOBACCO NEVER USED [facility] Tobacco Use History This section includes a history of the smoking, or tobacco-related health factors, that were collected on or before the date of the Encounter. The data comes from the [place] facility where the Encounter took place. Date/Time Smoking Status/Tobacco Use Comment F acility October 18, 2022 10:00 AM [facility]-TOBACCO NEVER USED [facility] September 28, 2021 09:30 AM VA-TOBACCO NEVER USED [facility] Nov 10, 2020 08:30 AM VA-TOBACCO NEVER USED [facility] Encounter Notes: All associated encounter notes This section contains the clinical notes associated to the Encounter. Date/Time Encounter Note(s) Provider Source Dec 22, 2023 08:30 AM MENTAL HEALTH CONSULT: LOCAL TITLE: MH NEUROPSYCHOLOGY CONSULT STANDARD TITLE: MENTAL HEALTH CONSULT DATE OF NOTE: DEC 22, 2023@08:30 ENTRY DATE: DEC 23, 2023@15:56:32 AUTHOR: MELINDA GAMING COSIGNER: URGENCY: STATUS: COMPLETED NEUROPSYCHOLOGY CONSULT Has ADDENDA NEUROPSYCHOLOGICAL EVALUATION Patient Name: Yariel Gutierres ([id number]) Date of : 1935 Date of Evaluation: 12/22/23 Reason for referral: Ms. Gutierres is referred for a baseline neuropsychological evaluation by her [facility] provider, BRY Pennington, to evaluate reported memory difficulties. Recent performance on a cognitive screen was below expectation (STMS = 27/38) with evidence of disorientation (wrong month, stated year as 2053) and poor recall (0). Impressions (see end of report for summary of results): Unfortunately, results of this exam are incomplete as the requested to discontinue testing early in the session. However, there is high suspicion for the early stages of Alzheimer's disease given the results of the recent cognitive screen, her son's concerns about her memory, reported functional changes, behavioral observations suggesting memory impairment, her request to discontinue upon initiation of memory testing, brain MRI results indicating moderate generalized atrophy with more advanced atrophy of the hippocampal formations, and her advanced age. Provisional diagnosis for this exam is Major Neurocognitive Disorder (early stages of Dementia) with primary etiological consideration of Alzheimer's disease. Cerebrovascular risk factors with associated neuroimaging findings are an additional consideration. Overall, gradual decline in cognitive and adaptive functioning should be expected and inform care planning. 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 The is currently living independently with support of an HHN for medication set-up and vitals check. Additional in-home supports (e.g., cleaning) are recommended given report of greater disorganization. Given likely progression, close monitoring of needs is recommended to support her in ongoing independent living. Discussion of future planning (e.g., potential transition to a higher level of care within her facility) is also recommended. Future referral to social work may be considered for further discussion of resources. 2. The 's son expressed concern about her driving. She stated she plans to retire from driving before the winter, though her son stated that she said this last fall as well and continued to drive. Should the choose to continue driving, a formal driving evaluation is recommended to ensure safety for her and the public. 3. Given significant hearing concerns, I walked the [place] to the [facility] and helped her make an appointment in December to get her hearing aids checked. Notably, given the degree of hippocampal atrophy, some of her hearing problems may reflect difficulties with auditory comprehension. 4. Learning and memory strategies that are likely to be most helpful include repetition of verbal information (e.g. check in with others so as to facilitate the exchange of information and provide opportunity for repetition), cueing whenever possible (using post-its and other forms of reminders to cue her memory), including contextual information, and use of visual external aids (e.g., calendar) to keep track of upcoming appointments and events. Maintaining a consistent, highly structured routine will also be helpful. 5. The Alzheimer's Association also provides information that is relevant to many dementia-spectrum conditions. This information can be accessed online at www.alz.org or by calling their 20/12 hotline at . I will provide resources from the Alzheimer's Association/NEYMAR at feedback. 6. Maintaining behavioral/physical activation and positive health/social behaviors are encouraged to promote healthy aging and overall brain health. 7. Upon discontinuation of testing, I explained to the that I would happily see her for a comprehensive assessment if she changes her mind and chooses to re-engage. Cognition may otherwise be assessed through routine screening. Consultation with the [facility] can also be considered should she continue to decline more comprehensive assessment. Thank you for the opportunity to consult with this patient. If further information is needed, please contact the office at . --EXTENDED REPORT-- [Total professional time, including testing/scoring/interpretatio n (30 min), chart review/consultation (60 min), clinical interview (60 min), report writing (60 min) = 210 min]. Ms. Gutierres provided verbal consent for neuropsychological evaluation and treatment following the provision of information about confidentiality and its limitations; the [place] was given the opportunity to ask questions. The following report and evaluation was completed by the undersigned psychologist. Information was obtained from clinical interview with the [place] and her son, Aman, and review of the [facility] medical records. Demographics: Age: 88 Race/Ethnicity: White, American/Vietnamese Handedness: Right Years of Education: 16 years Marital Status: Interview Information: Cognitive: denied significant cognitive concerns. She acknowledged some greater difficulty with cleaning/organizing her apartment. 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 She lives in the [facility] [place] (a jail complex with option for transition). She uses a physical calendar to track her schedule. Her son noticed that all three of the children have noticed changes with her memory (e.g., remembering great-grandson). He denied any noticeable change in personality/behavior. Sensorimotor/Autonomic: Yarelis noted particular difficulty with her hearing, with suboptimal function of her current hearing aids. Vision is good and glasses are up to date. She has mild arthritic pain. She denied other sensory concerns. She noted she is very active and social. She denied concerns with balance/gait or recent falls. She endorsed urinary and bowel incontinence daily. She denied other autonomic concerns. Sleep: Fairly well. Sleeps about 7-8 hours nightly. She occasionally dozes during the day if reading. Mood: Adequate. She reported occasional frustration/irritability that is slightly more than previous, typically related to others' behavior. No significant agitation, anger. She denied history of SI/HI, hallucination, delusions. Activities of Daily Living: Basic ADLs: intact IADLs: Medications: LOTTIE is coming to her home once weekly to check vitals and set up medications in pillbox. She provides information about overall health and the status of the home environment. Driving: No recent accidents/violations. She continues to drive daily but said she is considering retiring from driving as she no longer feels safe to drive in the winter. Recently she has only driven around [place]. Project Program Manager: [place] and son are working together to manage finances. Aman removed credit cards due to many attempted scams (no scam so far). Cooking: meals provided at facility. integrity consultant: No concerns, though struggling with motivation. She is considering hiring someone to clean the home. Medical/Psychiatric History: Problems: CAD - Coronary artery disease (SCT 41478 Osteopenia (SCT 750022222) Giant cell arteritis (SCT 744586095) Polymyalgia rheumatica (SCT 65567276) Prediabetes (SCT 670212038) 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 (SCT 039646105) History of cholecystectomy (SCT 45471406 History of total knee arthroplasty (SCT 7491326086932) Peripheral vascular disease (SCT 9475422 Sleep Apnea (SCT 77613835) Benign essential hypertension (SCT 86409 Thoracic aortic aneurysm without rupture (SCT 95217622) Hemifacial spasm of left facial nerve Atrial fibrillation (SCT 08201655) Long-term current use of anticoagulant [place] denied history of head trauma, stroke, seizure, ASBESTOS WORKER infection. Multiple ED visits for heart palpitations but no etiology (son suspects anxiety). She denied ever testing positive for COVID-19. Neurology notes indicate history of left hemifacial spasm with onset in 2021 with an excellent response to botulinum toxin injections. Surgeries: gall bladder removed, TKA for right knee. Relevant labs: Recent labs on 09/12/23 indicated A1C within reference range (5.8%) and elevated cholesterol levels. Vitamin D and TSH were within reference range on 03/15/24. Psychiatric history: Remote history of depression with brief hospitalization due to a suicide attempt (pills) in the late when her left the family. Substance Use: Alcohol: occasional glass of wine; denied history of problematic use Drug: denied Illicit: denied Tobacco: denied Caffeine: decaf coffee Family History: No history of neurodegenerative disease or psychiatric illness. Mother: at 67 related to emphysema/lung disease Father: at 72 related to old age, unclear cause Younger sister: in 60s from lung cancer Older step-sister: alive at 93, relatively healthy; recently moved back to [place] to be near children Current medications include: Medications: Active Outpatient Medications (including Supplies): Active [...] TABLETS BY ACTIVE MOUTH EVERY DAY 5) CETIRIZINE HCL 10MG TAB TAKE ONE TABLET BY MOUTH ACTIVE EVERY DAY NEEDED FOR COUGH 6) CHOLECALCIF 25MCG (D3-1,000UNIT) TAB TAKE TWO TABLETS ACTIVE BY MOUTH EVERY DAY 7) FLUTICASONE PROP 50MCG 120D NASAL INHL SPRAY 2 SPRAYS ACTIVE IN EACH NOSTRIL AT BEDTIME FOR COUGH 8) HYDROCHLOROTHIAZIDE 25MG TAB TAKE ONE TABLET BY MOUTH ACTIVE EVERY DAY FOR BLOOD PRESSURE 9) LISINOPRIL 40MG TAB TAKE ONE TABLET BY MOUTH EVERY ACTIVE DAY FOR BLOOD PRESSURE 10) METOPROLOL SUCCINATE 50MG SA TAB TAKE ONE TABLET BY ACTIVE MOUTH TWICE A DAY FOR BLOOD PRESSURE THESE ARE NEW INSTRUCTIONS 11) OLOPATADINE HCL 0.1% OPH SOLN INSTILL 1 DROP IN BOTH ACTIVE EYES TWICE A DAY 12) OMEPRAZOLE 20MG EC CAP TAKE ONE CAPSULE BY MOUTH ACTIVE TWICE A WEEK ON AN EMPTY STOMACH, AT LEAST 30 MINUTES PRIOR TO A MEAL 13) POISE PAD,MODERATE ABSORBENCY USE 1 PAD ACTIVE DIRECTED 14) SPIRONOLACTONE 25MG TAB TAKE ONE TABLET BY MOUTH ACTIVE EVERY DAY FOR BLOOD PRESSURE Neurodiagnostics: Brain MRI dated 06/24/23 at [facility]: Impression: 1. No abnormality along the expected courses of the trigeminal nerves on either side, including their nuclei, intracranial segments, and skullbase foramina. No abnormalities of the visualized facial regions. No evidence of vascular loop impingement at the cisternal trigeminal nerve root entry. 2. No acute ischemia. 3. No mass or pathologic enhancement. 4. 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 5. Mild chronic microvascular ischemic changes. 6. Moderate generalized parenchymal volume loss with more advanced atrophy of the hippocampal formations. Previous Neuropsychological Assessments: None in records and [place] denied. Developmental/Educational/Occ upational/Social History: Neurodevelopment: She denied known complications with her or early development. She grew up in [place], [place]. She denied history of LD/ADHD/special education/grade retention and performed well in school. 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 She feels well-supported by family and close friends. Daily activity includes social activity, reading the newspaper, and shopping. Attends druze weekly. Behavioral Observations: Ms. Gutierres presented to the appointment on-time and accompanied by her son, Aman. Gait appeared mildly antalgic (prior knee replacement); motor functioning was otherwise WNL. Vision was corrected and adequate for assessment purposes. Hearing was poor despite use of hearing aids. Speech was WNL for rate, rhythm, and volume and absent of notable word finding difficulties or paraphasic errors. Comprehension appeared intact as she was able to follow simple and complex questions and instructions. Thought processes were mildly perseverative, with emphasis on hearing impairment and wanting to get her hearing aids fixed. She also questioned several times about the purpose of the assessment as she feels she is doing well for her age. Affect was full range and mood-congruent. Memory appeared mildly impaired; her son had to provide reminders about recent events as well as certain aspects of her remote history (e.g., age/cause of parents' ). Her son also noted that the move out of her home that she spoke of as recently actually occurred 7 years ago. Ms. Gutierres persisted through the initial two tests administered but became frustrated and again questioned the purpose of the exam after the initial trial of memory testing. The provider attempted to explain the purpose from different perspectives (e.g., how the exam could help her, her family, and her providers), to which she responded by insisting that she is doing well for her age. I explained the voluntary nature of this exam and she opted to discontinue at that time. The remained friendly and cooperative during this conversation. Tests Administered: Empirically validated embedded measure of performance validity, [employer] (ACS Test of Premorbid Functioning-TOPF), Atkinson Verbal Learning Test-Revised (HVLT-R, Form 1), Geriatric Anxiety Inventory (GAI), Geriatric Depression Scale-Short Form (GDS-15) Manual norms were used unless otherwise specified. Examination Findings: Descriptive Lara: RS= Raw Score SS= Standardized Score %ile= Percentile Rank Effort: Performance on an embedded measures of effort was just below the established cut-off, which may reflect suboptimal effort or cognitive impairment (these tests are not well-validated in dementia populations). Overall this exam is incomplete and the below are shared for informational purposes. Premorbid Intellectual Functioning RS SS %ile -------- TOPF 39 101 53 Attention/Cognitive Efficiency RS SS %ile -------- WAISIV DigitSpan 19 9 37 WAISIV DigitSpan Forward 7 7 16 WAISIV DigitSpan Backward 5 7 16 WAISIV DigitSpan Sequencing 6 10 50 WAISIV LongestDigit Forward 5 WAISIV LongestDigit Backward 3 WAISIV LongestDigit Sequencing 4 Learning and Memory RS SS %ile -------- HVLT R Trial1 3 * requested to discontinue the testing entirely after this first trial. Emotional/Personality Functioning RS Descriptor -------- GDS-15 1 WNL GAI 9 WNL /baltazar/ Melinda Gaming, Ph.D., [facility] Staff Neuropsychologist Signed: 12/23/2023 16:04 Receipt Acknowledged By: 12/23/2023 16:22 /baltazar/ Natalia Sales MD STAFF PHYSICIAN 12/26/2023 07:46 /es/ Yaima Carlos MS,RN,[employer] WORKER Clinical Nurse Specialist 12/26/2023 ADDENDUM STATUS: COMPLETED Correction to above: WAIS-IV Digit Span score was a total of 18 (ss = 8, 25th percentile). /baltazar/ Melinda Gaming, Ph.D., [facility] Staff Neuropsychologist Signed: 12/26/2023 15:27 MELINDA GAMING [facility]
[2024-02-17 18:41] VITALS: BP 163/63; PULSE 66; RESP 18; TEMP 36.7; O2SAT 97; O2SAT 98; BMI 24.9
--- NOTE | 2024-02-17 18:42 | CRLHL7_ITS ---
For Patients: As a result of the Century Cures Act, medical imaging exams and procedure reports are released immediately into your electronic medical record. You may view this report before your referring provider. If you have questions, please contact your health care provider. Indication: Further evaluate patellar fracture, evidence of loose body Technique: Noncontrast CT images were captured of the knee and reformatted in multiple planes Comparison: Same day left knee radiographs Findings/Impression: Redemonstrated acute comminuted mildly displaced patellar fracture with punctate adjacent fragments (3/213, 3/183), but no large intra-articular fragment. No additional fracture identified. Moderate hemarthrosis. Superficial soft tissue swelling anterior to the knee. Tricompartmental osteoarthritis. Vascular calcifications. Please note that all CT scans at this facility use dose modulation, iterative reconstruction, and/or weight-based dosing when appropriate to reduce radiation dose to as low as reasonably achievable. Dictated by Simba Mcallister MD @ 02/17/2024 9:47:16 PM (Electronically Signed)
--- NOTE | 2024-02-17 19:27 | PC.NURSE ---
Pt arrived to floor around 1830. Alert, oriented and vitally stable. Assist of 2 pivot transfer, non weight bearing on the left leg. Admission assessment complete. Pleasant and comfortable in bed.
--- NOTE | 2024-02-17 19:46 | PM.IMHP1 ---
Hospitalist- H&P: HPI History of Present Illness Date Seen: 02/17/24 Chief complaint: Fall Narrative: Yariel Gutierres is a 89 year old woman who presents to the emergency department today status post a fall immediately prior to arrival to the emergency department. Was walking on a cracked and broken sidewalk and tripped over a judging piece of concrete. Landed on her left knee and has had left knee pain since. Did not strike her head or lose consciousness. Not anticoagulated. Mild headache. Denies other symptoms. A friend who was present when the accident occurred corroborates these various statements. On assessment in the [facility] Emergency Department, CT scan of the head and neck were negative for acute injury. Does have changes in the CT scan of the head consistent with chronic microvascular ischemic changes. X-ray of left knee demonstrates mildly comminuted and mildly displaced patellar fractures. Discussion undertaken with Orthopedic surgery who recommends surgical stabilization of this fracture. Patient anticoagulated with apixaban. Orthopedic surgery recommends earliest surgery consideration be tomorrow, 02/18/2024. Patient is thus admitted with anticipation of proceeding with surgery possibly as early as tomorrow. Will be kept NPO after midnight. Review of Systems Status of ROS: Reports: 6 or more systems reviewed and unremarkable except as noted in History and below Narrative: Lives alone in her apartment. Has a network of neighbors whom she associates with an who help her in her home. Neighbors accompany her in the emergency department and note that the patient's cognition has been declining gradually over 2 years and particularly over the last 2-3 days they have noticed a big change. Up until this morning the patient was still driving her own car. Last night she was out for a drive and when she returned she parked the car in the garage in left the car running all night. The exhaust from her car cause carbon monoxide poisoning in the apartments nearby. As of today she is no longer driving and her son, Aman, has taken her car keys away from her and will be taking her car away from her shortly. House is full of clutter to the point of being difficult to get around in her apartment. Patient no longer cooks. Has a home health aide who comes in and helps her couple times during the week. Neighbors are uncertain if patient takes her medications as prescribed. Neighbors note that the patient is very kind to fellow apartment friends. Nevertheless they are concerned about her declining cognitive state. Denies recent illness, other trauma or injury. Denies recent travel. Denies cardiac symptoms or pulmonary symptoms. Indicates she has no limitations in her physical abilities. Acknowledges she does less now than previously but generally active without limitations or restrictions. No other recent falls. Denies gastrointestinal or genitourinary symptoms. Denies myalgias or arthralgias. Denies fevers, rigors, diaphoresis. Denies focal motor neurologic changes. Minimizes and trivializes that her house is full of clutter. Acknowledges her cognition is declining and that she relies on others. Has 2 sons and a daughter. Oldest son, Aman, is her power of delivery table operator for health should that be required and his cell phone number is [phone]. She requests DNR DNI resuscitation status in the event of cardiopulmonary demise. Receives her primary medical care services through the [facility] in clinic. Receives home care services through them as well. Denies the use of tobacco products. Acknowledges drinking a glass of wine 1 or 2 nights a week. Denies use of any other street or recreational drugs. 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 - Blepharospasm (ICD-10) Sensorineural hearing loss, bilateral ?H90.3 - Sensorineural hearing loss, bilateral (ICD-10) Obstructive sleep apnea ?G47.33 - Obstructive sleep apnea (adult) (pediatric) (ICD-10) Prediabetes ?R73.03 - Prediabetes (ICD-10) History of polymyalgia rheumatica ?Z87.39 - Personal history of other diseases of the musculoskeletal system and connective tissue (ICD-10) Peripheral vascular disease ?I73.9 - Peripheral vascular disease, unspecified (ICD-10) Osteopenia ?M85.80 - Other specified disorders of bone density and structure, unspecified site (ICD-10) Hemifacial spasm of left side of face ?G51.32 - Clonic hemifacial spasm, left (ICD-10) History of giant cell arteritis ?Z87.39 - Personal history of other diseases of the musculoskeletal system and connective tissue (ICD-10) History of breast cancer ?Z85.3 - Personal history of malignant neoplasm of breast (ICD-10) Dementia of Alzheimer's type with behavioral disturbance ?G30.9 - Alzheimer's disease, unspecified (ICD-10) ?F02.818 - Dementia in other diseases classified elsewhere, unspecified severity, with other behavioral disturbance (ICD-10) Chronic anticoagulation ?Z79.01 - retirement (current) use of anticoagulants (ICD-10) Coronary artery disease ?I25.10 - Atherosclerotic heart disease of [place] coronary artery without angina pectoris (ICD-10) Hypertensive heart disease ?I11.9 - Hypertensive heart disease without heart failure (ICD-10) Essential hypertension ?I10 - Essential (primary) hypertension (ICD-10) Surgical History Status post total right knee replacement ?Z96.651 - Presence of right artificial knee joint (ICD-10) Status post cholecystectomy ?Z90.49 - Acquired absence of other specified parts of digestive tract (ICD-10) Social History Narrative: Lives alone. . 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 Receives her healthcare through the [facility] in hospital. Receives home care twice weekly. Receives support from neighbors and friends in addition to children. Two sons and 1 daughter. Designates oldest son, Aman, as power of delivery table operator for health should that be required, cell phone [phone]. Requests DNR DNI resuscitation status in the event of cardiopulmonary demise. What is your current living situation?: I presently have a place to live Problems where you live: no known problems Problems where you live details: no known problems In the past 12 months, utilities in danger of being shut off: no In past 12 months, lack of transportation kept you from medical appts, meetings, work, or getting things needed for daily living: no In the past 12 mos, have been you worried that your food would run out before you had money to buy more?: never true In the past 12 mos, the food you bought just didn't last and you didn't have money to buy more?: never true Highest level of school completed/degree received: Bachelor's degree Smoking Status: Never smoker Do you use any of these nicotine containing products: None Second hand tobacco smoke exposure: No How often do you have a drink containing alcohol: monthly or less How many standard drinks containing alcohol do you have on a typical day: 1 or 2 How often do you have six or more drinks on one occasion: Never AUDIT-C Alcohol total score: 1 Non-prescribed substance use: denies use Caffeine: Yes How often does anyone, including family, friends and others, physically hurt you: never How often does anyone, including family, friends and others, insult or talk down to you: never How often does anyone, including family, friends and others, threaten you with harm: never How often does anyone, including family, friends and others, scream or curse at you: never service: Yes Meds Home Medications and Allergies Home Medications ?Medication ?Instructions ?Recorded ?Confirmed ?Type atorvastatin 80 mg tablet 80 mg PO DAILY 05/20/22 02/17/24 History hydrochlorothiazide 25 mg tablet 25 mg PO DAILY 05/20/22 02/17/24 History lisinopril 40 mg tablet 40 mg PO DAILY 05/20/22 02/17/24 History omeprazole 20 mg capsule,delayed 20 mg PO .2X/WEEK 05/20/22 02/17/24 History release aspirin 81 mg tablet,delayed 81 mg PO DAILY 06/25/23 02/17/24 History release (Adult Low Dose Aspirin) apixaban 5 mg tablet (Eliquis) 5 mg PO BID 02/17/24 02/17/24 History calcium citrate 315 mg-vitamin D3 2 tab PO DAILY 02/17/24 02/17/24 History 5 mcg (200 unit) tablet (Calcium Citrate + D) cetirizine 10 mg tablet (24Hour 10 mg PO DAILY PRN 02/17/24 02/17/24 History Allergy) fluticasone propionate 50 2 spray intranasal DAILY PRN 02/17/24 02/17/24 History mcg/actuation nasal spray,suspension (24 Hour Allergy Relief) metoprolol succinate 50 mg 50 mg PO BID 02/17/24 02/17/24 History tablet,extended release 24 hr spironolactone 25 mg tablet 25 mg PO DAILY 02/17/24 02/17/24 History Allergies Allergy/AdvReac Type Severity Reaction Status Date / Time No Known Drug Allergies Allergy Verified 09/22/23 15:14 Exam Narrative: Exam Narrative: Examined patient in the emergency department. Mild to moderately decreased hearing but able to carry out conversation. Adequate vision. Appears comfortable on exam table. No acute distress. Alert and oriented to self, place, and in part to time and situation. Does rely on friends to help her answer some questions. Friendly and cooperative. Normal external auditory canals and tympanic membranes. Midline nasal septum. Moist buccal mucosa dentition in fair repair. No conjunctival injection or icterus. Conjugate gaze. Pupils equally round and reactive to light and accommodation. Neck is supple. Midline trachea. No JVD or hepatojugular reflux. No head neck lymphadenopathy. Lungs clear to auscultation without wheezing, rhonchi, or rales. Heart tones with regular rhythm, normal S1-S2. Abdomen with active bowel sounds, soft, nontender. No rebound or guarding. Extremities without edema. Scar over right knee patellar region. Ecchymotic left knee with hematoma. Tender to touch. Able to flex her knee. No focal motor neurologic deficits. Able to follow simple 1 step instructions. Const: Vital Signs, click to edit/add: Vital Signs - 24 hr 02/17/24 15:36 02/17/24 18:41 02/17/24 18:41 Temperature 98.1 F 98.1 F Pulse Rate [Pulse Oximeter] 66 66 Respiratory Rate 18 18 18 Blood Pressure [Le ft Upper Arm] 134/63 Blood Pressure [Ri ght Arm] 163/63 H Pulse Oximetry 97 98 97 Oxygen Delivery Me thod Room Air Room Air Room Air Hospitalist - H&P: Result ECG ECG interpretation date: 02/17/24 Interpretation: Sinus bradycardia with first-degree AV block. No ischemic or infarct pattern. No dysrhythmia. Imaging CT scan - head: Radiologist's impression: No acute intracranial processes. Microvascular changes consistent with chronic ischemia. CT scan of cervical spine: Radiologist's impression: No acute abnormalities. Degenerative disc disease and foraminal stenosis noted. Left knee x-ray: Radiologist's impression: Moderately comminuted mildly displaced patellar fractures. Assessment and Plan Assessment and plan (1) Fracture, patella: Problem comment: - orthopedic surgery consulted and recommend additional visualization with CT scan and surgical stabilization of fracture possibly as early as tomorrow - unable to bear weight on affected limb, knee stabilizer applied - NPO after midnight with IV fluids - analgesia - patient will need to consider transitional care services before returning home - hold apixaban Status: Acute (2) Dementia of Alzheimer's type with behavioral disturbance: Problem comment: - OT to assess while in hospital and assist with discharge disposition planning - friends, neighbors, and family extremely supportive to help her continue to live in her current living situation - no longer driving her own vehicle as of 02/17/2024 due to safety concerns Status: Acute (3) Hypertensive heart disease: Problem comment: - on multiple medications for the same Status: Acute (4) Atrial fibrillation: Status: Acute (5) Chronic anticoagulation: Problem comment: - apixaban 5 mg p.o. b.i.d. for history of atrial fibrillation - hold apixaban starting evening of 02/17/2024, last dose administered morning of 02/17/2024 Status: Acute (6) Coronary artery disease: Problem comment: - 11/2007: Coronary angiogram demonstrates nonobstructive coronary artery disease with 40% mid LAD stenosis, 40% proximal left circumflex, 20% distal RCA, 30% posterior descending artery. - 06/2020: PET stress test with EF 71%, small area of mild ischemia in apical lateral wall and mild nontransmural infarction basal anterior wall. Status: Acute Plan 1. Reviewed impression with patient and her neighbors. 2. Reviewed plans and recommendations with patient and her neighbors. 3. Answered their questions to their satisfaction. 4. They are all agreeable with above stated plans and recommendations. 5. Will try to get a hold of family and reviewed the same with the patient family. Total Time Spent Total Time Spent: 65 minute
[2024-02-17 20:07] LABS: Hematocrit 37.5 % (33.0-51.0); Hemoglobin* 12.8 gm/dL (12.0-16.0); Mean Corpuscular HGB Conc 34 gm/dL (32-36); Mean Corpuscular Hemoglobin 30 pg (26-34); Mean Corpuscular Volume 87 fL (80-100); Platelet Count* 186 K/uL (140-440); Red Blood Count 4.32 m/uL (4.00-5.20); White Blood Count* 5.87 K/uL (4.50-11.00)
[2024-02-17 20:11] LABS: Slide Review Reflex No
[2024-02-17 20:18] VITALS: BP 153/56; PULSE 62; RESP 16; TEMP 36.1; O2SAT 98
[2024-02-17] MEDS: ACETAMINOPHEN 325 MG TABLET 650 MG PO (20:23)
[2024-02-17] MEDS: METOPROLOL SUCCINATE (XL) 50 MG TAB PO (20:23)
[2024-02-17 20:25] LABS: Albumin* 3.7 g/dL (3.3-5.0); Chloride* 98 mmol/L (96-114); Potassium* 3.5 mmol/L (3.6-5.1); Sodium* 129 mmol/L (135-149)
[2024-02-17 20:28] LABS: Anion Gap 6 mEq/L (7-15); Blood Urea Nitrogen* 12 mg/dL (7-30); Carbon Dioxide* 25 mmol/L (20-32); Creatinine* 0.7 mg/dL (0.5-1.5); Est. Creatinine Clearance* 32.93; Estimated Glomerular Filt Rate 83 ml/min; Glucose* 159 mg/dL (60-115); Phosphorus* 4.2 mg/dL (2.5-4.5)
[2024-02-17] MEDS: SODIUM CHLORIDE 0.9 % (FLUSH) 10 ML SYRINGE 5 ML IVF (21:23)
[2024-02-17] MEDS: 0.9 % SODIUM CHLORIDE 1000 ml 1,000 ML 75 ML IV (21:25)
[2024-02-17] MEDS: POTASSIUM CHLORIDE 10 MEQ CAPSULE ER 20 MEQ PO (21:34)
[2024-02-17 22:48] LABS: Appearance Urine Clear (Clear); Bilirubin Urine Negative (Negative); Blood Urine Negative (Negative); Color Urine Yellow (Yellow); Glucose Urine Negative (Negative); Ketones Urine Negative (Negative); Leukocyte Esterase Urine Trace (Negative); Nitrite Urine Negative (Negative); Protein Urine Negative (Negative); Urobilinogen Urine 0.2 (0.2-1.0); pH Urine 5.5 (5.0-8.5)
[2024-02-17 23:21] VITALS: BP 173/59; PULSE 56; RESP 16; TEMP 36.4; O2SAT 95
[2024-02-17 23:24] VITALS: RESP 16; O2SAT 95
[2024-02-17 23:36] LABS: Bacteria Urine Moderate; RBC Urine 0-2 (0-2); Squamous Epithelial Cell Urine Few (None-Few); WBC Urine 0-2 (0-5)
[2024-02-18] VITALS (11 sets, daily range): BP systolic 106–159; BP diastolic 52–69; PULSE 58–78; RESP 16–22; TEMP 36.4–36.8; O2SAT 94–96
--- NOTE | 2024-02-18 06:40 | PC.NURSE ---
End of shift [id number]: A&O with some intermittent confusion. VSS. Left knee bruised and swollen. Pain reported when moving but denies pain while inactive. Intermittent ice to knee. Up w/ A1 walker and gait belt to commode. Knee immobilizer in place when up to commode. NWB on left leg. Pt does need some reminding to not put weight on left leg. Pt refused SCDs reporting that she cannot sleep with them on. Bed alarm in place. Pt using call light appropriately. ?
[2024-02-18 06:50] LABS: Hemoglobin* 12.4 gm/dL (12.0-16.0)
[2024-02-18 07:03] LABS: Chloride* 102 mmol/L (96-114); Potassium* 3.9 mmol/L (3.6-5.1); Sodium* 131 mmol/L (135-149)
[2024-02-18 07:06] LABS: Anion Gap 4 mEq/L (7-15); Carbon Dioxide* 25 mmol/L (20-32); Creatinine* 0.6 mg/dL (0.5-1.5); Est. Creatinine Clearance* 32.93; Estimated Glomerular Filt Rate 86 ml/min
[2024-02-18 07:07] LABS: Blood Urea Nitrogen* 10 mg/dL (7-30); Calcium* 8.8 mg/dL (8.4-10.6); Glucose* 104 mg/dL (60-115); Magnesium* 1.9 mg/dL (1.5-2.6)
--- NOTE | 2024-02-18 08:03 | P.ORCN_ITS ---
History of Present Illness HPI Time Seen by Provider: 07:40 Date Seen: 02/18/24 Consult date: 02/18/24 Requesting physician: Rosana Kingsley Consult reason: fracture Chief complaint: Fall Narrative: Yariel is a pleasant 89-year-old female who sustained a fall yesterday (DOI: 02/18/24) portion and directly over her anterior left knee. She presented to our emergency department yesterday evening where imaging showed an acute patellar fracture. Patient was admitted for observation and pain management. This morning she is doing well reports no pain at rest but significant pain with mov ement of her knee and standing. Denies numbness and tingling distally. Denies previous left knee injuries. Denies left knee surgical history. During our visit patient was not wearing her knee immobilizer, but has one present in the room. [facility] Medical History (Updated 02/18/24 @ 08:16 by Ameena Adorno PA-C) Atrial fibrillation ?I48.91 - Unspecified atrial fibrillation (ICD-10) Squamous cell carcinoma Blepharospasm ?G24.5 - Blepharospasm (ICD-10) Sensorineural hearing loss, bilateral ?H90.3 - Sensorineural hearing loss, bilateral (ICD-10) Obstructive sleep apnea ?G47.33 - Obstructive sleep apnea (adult) (pediatric) (ICD-10) Prediabetes ?R73.03 - Prediabetes (ICD-10) History of polymyalgia rheumatica ?Z87.39 - Personal history of other diseases of the musculoskeletal system and connective tissue (ICD-10) Peripheral vascular disease ?I73.9 - Peripheral vascular disease, unspecified (ICD-10) Osteopenia ?M85.80 - Other specified disorders of bone density and structure, unspecified site (ICD-10) Hemifacial spasm of left side of face ?G51.32 - Clonic hemifacial spasm, left (ICD-10) History of giant cell arteritis ?Z87.39 - Personal history of other diseases of the musculoskeletal system and connective tissue (ICD-10) History of breast cancer ?Z85.3 - Personal history of malignant neoplasm of breast (ICD-10) Dementia of Alzheimer's type with behavioral disturbance ?G30.9 - Alzheimer's disease, unspecified (ICD-10) ?F02.818 - Dementia in other diseases classified elsewhere, unspecified severity, with other behavioral disturbance (ICD-10) Chronic anticoagulation ?Z79.01 - half-way (current) use of anticoagulants (ICD-10) Coronary artery disease ?I25.10 - Atherosclerotic heart disease of [place] coronary artery without angina pectoris (ICD-10) Hypertensive heart disease ?I11.9 - Hypertensive heart disease without heart failure (ICD-10) Essential hypertension ?I10 - Essential (primary) hypertension (ICD-10) Surgical History Status post total right knee replacement ?Z96.651 - Presence of right artificial knee joint (ICD-10) Status post cholecystectomy ?Z90.49 - Acquired absence of other specified parts of digestive tract (ICD- 10) Social History Narrative: Lives alone. . 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 [facility]ce[facility] in hospital. Receives home care twice weekly. Receives support from neighbors and friends in addition to children. Two sons and 1 daughter. Designates oldest son, Aman, as power of health care attorney for health should that be required, cell phone [phone]. Requests DNR DNI resuscitation status in the event of cardiopulmonary demise. What is your current living situation?: I presently have a place to live Problems where you live: no known problems Problems where you live details: no known problems In the past 12 months, utilities in danger of being shut off: no In past 12 months, lack of transportation kept you from medical appts, meetings, work, or getting things needed for daily living: no In the past 12 mos, have been you worried that your food would run out before you had money to buy more?: never true In the past 12 mos, the food you bought just didn't last and you didn't have money to buy more?: never true Highest level of school completed/degree received: Bachelor's degree Smoking Status: Never smoker Do you use any of these nicotine containing products: None Second hand tobacco smoke exposure: No How often do you have a drink containing alcohol: monthly or less How many standard drinks containing alcohol do you have on a typical day: 1 or 2 How often do you have six or more drinks on one occasion: Never AUDIT-C Alcohol total score: 1 Non-prescribed substance use: denies use Caffeine: Yes How often does anyone, including family, friends and others, physically hurt you : never How often does anyone, including family, friends and others, insult or talk down to you: never How often does anyone, including family, friends and others, threaten you with harm: never How often does anyone, including family, friends and others, scream or curse at you: never service: Yes Meds Home Medications and Allergies Home Medications ?Medication ?Instructions ?Recorded ?Confirmed ?Type atorvastatin 80 mg tablet 80 mg PO DAILY 05/20/22 02/17/24 History hydrochlorothiazide 25 mg tablet 25 mg PO DAILY 05/20/22 02/17/24 History lisinopril 40 mg tablet 40 mg PO DAILY 05/20/22 02/17/24 History omeprazole 20 mg capsule,delayed 20 mg PO .2X/WEEK 05/20/22 02/17/24 History release aspirin 81 mg tablet,delayed 81 mg PO DAILY 06/25/23 02/17/24 History release (Adult Low Dose Aspirin) apixaban 5 mg tablet (Eliquis) 5 mg PO BID 02/17/24 02/17/24 History calcium citrate 315 mg-vitamin D3 2 tab PO DAILY 02/17/24 02/17/24 History 5 mcg (200 unit) tablet (Calcium Citrate + D) cetirizine 10 mg tablet (24Hour 10 mg PO DAILY PRN 02/17/24 02/17/24 History Allergy) fluticasone propionate 50 2 spray intranasal DAILY PRN 02/17/24 02/17/24 History mcg/actuation nasal spray,suspension (24 Hour Allergy Relief) metoprolol succinate 50 mg 50 mg PO BID 02/17/24 02/17/24 History tablet,extended release 24 hr spironolactone 25 mg tablet 25 mg PO DAILY 02/17/24 02/17/24 History Allergies Allergy/AdvReac Type Severity Reaction Status Date / Time No Known Drug Allergies Allergy Verified 09/22/23 15:14 Ortho Exam Narrative Exam Narrative: Patient is alert and oriented x3. No acute distress. Converses with nonlabored breathing. Patient was not wearing her knee immobilizer and had a pillow under her knee. Left knee exam: No erythema, induration or other cutaneous changes. No open wounds nor abrasions. Area of ecchymosis over anterior knee. Moderate hemarthrosis. Moderate tenderness to palpation circumferentially around the patella. AROM limited due to pain. Extensor mechanism is subtle but intact. Bilateral calves are supple, with no swelling, pain, tenderness, erythema, discoloration or coolness to the touch. Intact distally with 2+ Dorsalis pedis and Posterior Tibial pulses, digits pink, warm with brisk cap refill. Confirmed sensation distally. Const Vital Signs, click to edit/add: Vital Signs - 24 hr 02/17/24 15:36 02/17/24 18:41 02/17/24 18:41 Temperature 98.1 F 98.1 F Pulse Rate [Pulse Oximeter] 66 66 Respiratory Rate 18 18 18 Blood Pressure [Left Upper Arm] 134/63 Blood Pressure [Right Arm] 163/63 H Pulse Oximetry 97 98 97 Oxygen Delivery Method Room Air Room Air Room Air 02/17/24 20:18 02/17/24 23:21 02/17/24 23:24 Temperature 96.9 F L 97.5 F L Pulse Rate [Pulse Oximeter] 62 56 L Respiratory Rate 16 16 16 Blood Pressure [Left Upper Arm] Blood Pressure [Right Arm] 153/56 H 173/59 H Pulse Oximetry 98 95 95 Oxygen Delivery Method Room Air Room Air Room Air 02/18/24 03:00 02/18/24 07:56 Temperature 98.0 F 97.6 F Pulse Rate [Pulse Oximeter] 58 L 68 Respiratory Rate 16 18 Blood Pressure [Left Upper Arm] Blood Pressure [Right Arm] 152/68 H 159/69 H Pulse Oximetry 95 95 Oxygen Delivery Method Room Air Room Air Results Labs Labs: Laboratory Results - last 48 hr 02/17/24 02/17/24 02/18/24 19:57 22:41 05:50 WBC 5.87 RBC 4.32 Hgb 12.8 12.4 Hct 37.5 MCV 87 MCH 30 MCHC 34 Plt Count 186 Sodium 129 L 131 L Potassium 3.5 L 3.9 Chloride 98 102 Carbon Dioxide 25 25 Anion Gap 6 L 4 L BUN 12 10 Creatinine 0.7 0.6 Estimated Creat Clear 32.93 32.93 Estimated GFR 83 86 Glucose 159 H 104 Calcium 9.0 8.8 Phosphorus 4.2 Magnesium 1.9 Albumin 3.7 Urine Color Yellow Urine Appearance Clear Urine pH 5.5 Ur Specific [place] 1.020 Urine Protein Negative Urine Glucose (UA) Negative Urine Ketones Negative Urine Blood Negative Urine Nitrite Negative Urine Bilirubin Negative Urine Urobilinogen 0.2 Ur Leukocyte Esterase Trace A Urine RBC 0-2 Urine WBC 0-2 Ur Squamous Epith Cells Few Urine Bacteria Moderate A Diagnostic results Knee x-ray: report reviewed and image reviewed (Three-view left knee images were reviewed from [facility] dated 02/17/2024. These show: An acute, nondisplaced, intra-articular patellar fracture. Moderate tricompartmental osteoarthritis. Vascular calcifications present. ) Knee CT: report reviewed and image reviewed (Knee CT dated 02/17/2024 reviewed. This shows: An acute comminuted mildly displaced patellar fracture with punctate adjacent fragments, but no large intra-articular fragment. Moderate hemarthrosis. Superficial soft tissue swelling. He has tricompartmental osteoarthritis. No loose body.) Assessment and Plan Assessment and plan (1) Fracture, patella: Problem comment: DOI: 02/17/24. Status: Acute Assessment and Plan: Left knee CT reviewed dated 02/17/24 showing this acute patellar fracture is nondisplaced with no loose bodies. Patient extensor mechanism is subtle but intact. I recommend non-operative treatment with a knee immobilizer x 6 weeks. Knee immobilizer to be worn at all times; may remove to shower, to ice her knee and when resting in bed/recliner if desired. For pain management, I recommend rest, frequent icing and Tylenol PRN. I recommend Charlaine avoid narcotic medications if possible to prevent recurrent falls. Patient is able to weightbear as tolerated with a walker for assistance. PT/OT will work on christiana ceps/hip/core strengthening. Avoid flexion of this left knee. I informed Yariel that her pain will increase with even slight flexion of her knee. I recommend placing a pillow under her left ankle instead of her left knee. Upon discharge, patient will likely require SNF/Rehab placement. Patient will f/u with Orthopedics in 1-2 weeks, once discharged from SNF facility. Total time spent: Total time spent is greater than 50% in coordination of care (as documented) at patient's floor/unit and/or counseling patient: (2) Dementia of Alzheimer's type with behavioral disturbance: Problem comment: - OT to assess while in hospital and assist with discharge disposition planning - friends, neighbors, and family extremely supportive to help her continue to live in her current living situation - no longer driving her own vehicle as of 02/17/2024 due to safety concerns Status: Acute Total time spent: Total time spent is greater than 50% in coordination of care (as documented) at patient's floor/unit and/or counseling patient:
--- NOTE | 2024-02-18 08:31 | P.IMPN_ITS ---
Progress Note: A&P Assessment and plan (1) Fracture, patella: Problem details: - DOI: 02/17/24 - nonsurgical per Orthopedic Surgery - wearing knee immobilizer, will need higher level of care upon d/c Status: Acute (2) Dementia of Alzheimer's type with behavioral disturbance: Problem details: - per son, Aman, working on increased services (he's been in touch with [facility] over the past week) and care - has had cognitive evaluations in the [place] which exhibit decline - OT to assess while in hospital and assist with discharge disposition planning - friends, neighbors, and family extremely supportive to help her continue to live in her current living situation - no longer driving her own vehicle as of 02/17/2024 due to safety concerns Status: Acute (3) Chronic anticoagulation: Problem details: - apixaban 5 mg po BID for history of atrial fibrillation - continue this Status: Acute (4) Atrial fibrillation: Problem details: - currently in SR, rate controlled on Metoprolol and anticoagulated on Eliquis Status: Acute (5) Hyponatremia: Problem details: - admission sodium 129, sodium 02/17 is 131 - holding HCTZ, will continue to follow Status: Acute Plan - per above - son Aman updated by phone, questions answered Subjective Date Seen: 02/18/24 Interval history: Yariel was admitted to the hospital last night after suffering a L patellar fracture following a mechanical fall at home. This morning, she was seen by Orthopedic surgery, who do not recommend surgical intervention at this time. Knee immobilizer has been placed, she is initiating PT this morning. Notes pain with weight-bearing, no other concerns for hospitalist team. Currently lives at the [facility] (independent living apartments on [facility] [place]); family has been looking for increased services given cognitive decline. Exam Narrative: Exam Narrative: GEN: Alert and nontoxic, sitting comfortably in bedside chair and eating breakfast HEENT: EOMIs bilaterally, no scleral icterus CV: RRR, No concerning murmurs R: LCTA bilaterally without concerning wheezing, air movement is adequate Ext: L knee immobilizer Neuro: No focal deficits, no resting tremor Const: Vital Signs, click to edit/add: Vital Signs - 24 hr 02/17/24 15:36 02/17/24 18:41 02/17/24 18:41 Temperature 98.1 F 98.1 F Pulse Rate [Pulse Oximeter] 66 66 Respiratory Rate 18 18 18 Blood Pressure [Le ft Upper Arm] 134/63 Blood Pressure [Ri ght Arm] 163/63 H Pulse Oximetry 97 98 97 Oxygen Delivery Me thod Room Air Room Air Room Air 02/17/24 20:18 02/17/24 23:21 02/17/24 23:24 Temperature 96.9 F L 97.5 F L Pulse Rate [Pulse Oximeter] 62 56 L Respiratory Rate 16 16 16 Blood Pressure [Le ft Upper Arm] Blood Pressure [Ri ght Arm] 153/56 H 173/59 H Pulse Oximetry 98 95 95 Oxygen Delivery De thod Room Air Room Air Room Air 02/18/24 03:00 02/18/24 07:55 02/18/24 07:56 Temperature 98.0 F 97.6 F Pulse Rate [Pulse Oximeter] 58 L 68 Respiratory Rate 16 18 18 Blood Pressure [Le ft Upper Arm] Blood Pressure [Ri ght Arm] 152/68 H 159/69 H Pulse Oximetry 95 95 95 Oxygen Delivery De thod Room Air Room Air Room Air Labs Labs: Laboratory Results - last 24 hr 02/17/24 02/17/24 02/18/24 19:57 22:41 05:50 WBC 5.87 RBC 4.32 Hgb 12.8 12.4 Hct 37.5 MCV 87 MCH 30 MCHC 34 Plt Count 186 Sodium 129 L 131 L Potassium 3.5 L 3.9 Chloride 98 102 Carbon Dioxide 25 25 Anion Gap 6 L 4 L BUN 12 10 Creatinine 0.7 0.6 Estimated Creat Clear 32.93 32.93 Estimated GFR 83 86 Glucose 159 H 104 Calcium 9.0 8.8 Phosphorus 4.2 Magnesium 1.9 Albumin 3.7 Urine Color Yellow Urine Appearance Clear Urine pH 5.5 Ur Specific [place] 1.020 Urine Protein Negative Urine Glucose (UA) Negative Urine Ketones Negative Urine Blood Negative Urine Nitrite Negative Urine Bilirubin Negative Urine Urobilinogen 0.2 Ur Leukocyte Esterase Trace A Urine RBC 0-2 Urine WBC 0-2 Ur Squamous Epith Cells Few Urine Bacteria Moderate A
[2024-02-18] MEDS: ACETAMINOPHEN 325 MG TABLET 650 MG PO ×3 (09:07→20:32)
[2024-02-18] MEDS: METOPROLOL SUCCINATE (XL) 50 MG TAB PO ×2 (09:07→20:32)
[2024-02-18] MEDS: ATORVASTATIN CALCIUM 40 MG TABLET 80 MG PO (09:07)
[2024-02-18] MEDS: lisinopriL 20 MG TABLET 40 MG PO (09:08)
[2024-02-18] MEDS: SPIRONOLACTONE 25 MG TABLET PO (09:08)
[2024-02-18] MEDS: SODIUM CHLORIDE 0.9 % (FLUSH) 10 ML SYRINGE 5 ML IVF ×2 (09:13→20:33)
--- NOTE | 2024-02-18 15:17 | PC.NURSE ---
[id number]: Pt is pleasant, alert, oriented, and vitally stable. Moves assist of one and tolerates well. IV saline locked and patent. Pt is on a regular diet and tolerates well. Pain managed well.
[2024-02-19 04:06] VITALS: RESP 18
--- NOTE | 2024-02-19 06:32 | PC.NURSE ---
End of shift [id number]: A&O with some intermittent confusion. VSS. Left knee bruised and swollen. Reports pain with activity and denies pain at rest.?Up w/ A1 walker and gait belt to the bathroom. Knee immobilizer in place. Pt refused SCDs reporting that she cannot sleep with them on. Bed alarm in place. Pt using call light appropriately.?
[2024-02-19 07:22] LABS: Chloride* 103 mmol/L (96-114); Sodium* 132 mmol/L (135-149)
[2024-02-19 07:23] LABS: Potassium* 3.9 mmol/L (3.6-5.1)
[2024-02-19 07:25] LABS: Creatinine* 0.6 mg/dL (0.5-1.5); Est. Creatinine Clearance* 32.93; Estimated Glomerular Filt Rate 86 ml/min
[2024-02-19 07:26] LABS: Anion Gap 5 mEq/L (7-15); Blood Urea Nitrogen* 17 mg/dL (7-30); Calcium* 8.9 mg/dL (8.4-10.6); Carbon Dioxide* 24 mmol/L (20-32); Glucose* 105 mg/dL (60-115)
[2024-02-19 08:15] VITALS: BP 127/61; PULSE 73; RESP 18; TEMP 36.4; O2SAT 95
[2024-02-19] MEDS: ACETAMINOPHEN 325 MG TABLET 650 MG PO ×4 (09:36→21:55)
[2024-02-19] MEDS: ATORVASTATIN CALCIUM 40 MG TABLET 80 MG PO (09:37)
[2024-02-19] MEDS: SODIUM CHLORIDE 0.9 % (FLUSH) 10 ML SYRINGE 5 ML IVF ×2 (09:37→21:55)
[2024-02-19] MEDS: lisinopriL 20 MG TABLET 40 MG PO (09:37)
[2024-02-19] MEDS: METOPROLOL SUCCINATE (XL) 50 MG TAB PO ×2 (09:37→21:55)
[2024-02-19] MEDS: SPIRONOLACTONE 25 MG TABLET PO (09:38)
--- NOTE | 2024-02-19 09:43 | P.IMPN_ITS ---
Progress Note: A&P Assessment and plan (1) Fracture, patella: Problem details: - DOI: 02/17/24 - nonsurgical per Orthopedic Surgery - wearing knee immobilizer, will need higher level of care upon d/c Status: Acute (2) Dementia of Alzheimer's type with behavioral disturbance: Problem details: - per son, Aman, working on increased services (he's been in touch with [facility] recently) and care - [place] - friends, neighbors, and family extremely supportive to help her continue to live in her current living situation - no longer driving her own vehicle as of 02/17/2024 due to safety concerns Status: Acute (3) Chronic anticoagulation: Problem details: - apixaban 5 mg po BID for history of atrial fibrillation - continue this Status: Acute (4) Atrial fibrillation: Problem details: - currently in SR, rate controlled on Metoprolol and anticoagulated on Eliquis Status: Acute (5) Hyponatremia: Problem details: - Sodium between 129-132 during stay, asymptomatic - holding HCTZ, will continue to follow Status: Acute Plan - per above - d/c to SNF when bed available Subjective Date Seen: 02/19/24 Interval history: Yariel was admitted to the hospital on 02/16 after suffering a L patellar fracture following a mechanical fall. She has been seen by Orthopedic surgery and no surgical intervention recommended at this time. Knee immobilizer has been placed, following with therapies. No concerns for hospitalist team this morning. Currently lives at the [facility] (independent living apartments on [facility] [place]); family has been looking for increased services given progressive cognitive decline. Exam Narrative: Exam Narrative: GEN: Alert and pleasant, doesn't remember me from yesterday HEENT: EOMIs bilaterally, no scleral icterus CV: RRR, No concerning murmurs, rubs, or gallops R: LCTA bilaterally without wheezing Ext: No edema, L knee immobilizer Skin: No concerning skin lesions or rashes on exposed skin Neuro: No focal deficits on limited exam Psych: Appropriate, no agitation Const: Vital Signs, click to edit/add: Vital Signs - 24 hr 02/18/24 10:50 02/18/24 15:00 02/18/24 15:00 Temperature 98.2 F Pulse Rate [Pulse Oximeter] 73 78 Respiratory Rate 18 18 18 Blood Pressure [Ri ght Arm] 106/60 Pulse Oximetry 96 95 Oxygen Delivery Me thod Room Air Room Air 02/18/24 15:00 02/18/24 19:26 02/18/24 20:32 Temperature 98.0 F 97.7 F Pulse Rate [Pulse Oximeter] 78 66 62 Respiratory Rate 18 16 Blood Pressure [Ri ght Arm] 123/60 129/52 L Pulse Oximetry 95 94 Oxygen Delivery Me thod Room Air Room Air 02/18/24 23:05 02/18/24 23:13 02/18/24 23:15 Temperature 98.1 F Pulse Rate [Pulse Oximeter] 64 Respiratory Rate 18 22 22 Blood Pressure [Ri ght Arm] 148/60 H Pulse Oximetry 95 95 Oxygen Delivery Me thod Room Air Room Air 02/19/24 04:06 02/19/24 08:15 02/19/24 08:15 Temperature 97.6 F Pulse Rate [Pulse Oximeter] 73 Respiratory Rate 18 18 18 Blood Pressure [Ri ght Arm] 127/61 Pulse Oximetry 95 95 Oxygen Delivery Ma thod Room Air Room Air Labs Labs: Laboratory Results - last 24 hr 02/19/24 05:50 Sodium 132 L Potassium 3.9 Chloride 103 Carbon Dioxide 24 Anion Gap 5 L BUN 17 Creatinine 0.6 Estimated Creat Clear 32.93 Estimated GFR 86 Glucose 105 Calcium 8.9
[2024-02-19 11:11] VITALS: BP 130/93; PULSE 64; RESP 18; TEMP 36.8; O2SAT 97
[2024-02-19 15:00] VITALS: BP 135/59; PULSE 63; RESP 18; TEMP 37; O2SAT 97
--- NOTE | 2024-02-19 15:00 | PC.NURSE ---
[id number]: Pt pleasant, alert, oriented and vitally stable.?Moves via assist of 1, gait belt and walker. Knee immobilizer in place and tolerating well. Pt is on a regular diet and tolerating well. Reports pain with activity, though pt states there is no pain at rest.?
[2024-02-19 19:00] VITALS: BP 124/56; PULSE 67; RESP 18; TEMP 36.5; O2SAT 95
[2024-02-19 23:00] VITALS: PULSE 67; RESP 18; O2SAT 93
[2024-02-20 03:00] VITALS: RESP 16
[2024-02-20 07:00] VITALS: BP 135/71; PULSE 73; RESP 16; TEMP 36.6; O2SAT 97
[2024-02-20] MEDS: lisinopriL 20 MG TABLET 40 MG PO (08:40)
[2024-02-20] MEDS: ATORVASTATIN CALCIUM 40 MG TABLET 80 MG PO (08:40)
[2024-02-20] MEDS: METOPROLOL SUCCINATE (XL) 50 MG TAB PO (08:40)
[2024-02-20] MEDS: SODIUM CHLORIDE 0.9 % (FLUSH) 10 ML SYRINGE 5 ML IVF (08:40)
[2024-02-20] MEDS: SPIRONOLACTONE 25 MG TABLET PO (08:42)
[2024-02-20] MEDS: ACETAMINOPHEN 325 MG TABLET 650 MG PO ×2 (09:09→13:14)
[2024-02-20] MEDS: APIXABAN 5 MG TABLET PO (09:09)
[2024-02-20 11:00] VITALS: BP 119/60; PULSE 71; RESP 18; TEMP 36.7; O2SAT 94
--- NOTE | 2024-02-20 12:18 | PM.DS1 ---
DS: Providers Provider Date Seen: 02/20/24 Date of admission: 02/17/24 19:35 Admitting Clinician: Arun Bowens MD Consults: PT, OT Attending Physician on discharge: Rosana Kingsley MD Date of Discharge: 02/20/24 DS: Diagnosis Discharge Diagnosis (1) Fracture, patella: Status: Acute Problem details: - DOI: 02/17/24 - nonsurgical per Orthopedic Surgery - wearing knee immobilizer, discharge to SNF on 02/20/24 (2) Hyponatremia: Status: Acute Problem details: - Sodium between 129-132 during stay, asymptomatic - held HCTZ with good BP control, will stop this upon discharge and follow BMP as an outpatient (3) Dementia of Alzheimer's type with behavioral disturbance: Status: Acute Problem details: - has had cognitive evaluations in the [place] which exhibit decline - no longer driving her own vehicle as of 02/17/2024 due to safety concerns - appropriate for higher level of care living (4) Chronic anticoagulation: Status: Acute Problem details: - apixaban 5 mg po BID for history of atrial fibrillation - continue this upon d/c (5) Atrial fibrillation: Status: Acute Problem details: - currently in SR, rate controlled on Metoprolol and anticoagulated on Eliquis (6) Coronary artery disease: Status: Acute Problem details: - History below, quiescent during stay - 11/2007: Coronary angiogram demonstrates nonobstructive coronary artery disease with 40% mid LAD stenosis, 40% proximal left circumflex, 20% distal RCA, 30% posterior descending artery. - 06/2020: PET stress test with EF 71%, small area of mild ischemia in apical lateral wall and mild nontransmural infarction basal anterior wall. DS: Summary Hospital Course Hospital Course: Yariel was admitted to the hospital on 02/16 after suffering a L patellar fracture following a mechanical fall. Seen by Orthopedic surgery during stay; nonoperative management recommended. Knee immobilizer has been placed, seen by therapies who recommended SNF placement. Also noted to have mild hyponatremia. Asymptomatic, sodium 129-132. HCTZ held, sodium and BP remained stable. Will continue holding HCTZ upon discharge. Other comorbidities noted above, stable. Patient medically appropriate for SNF discharge to [facility] on 02/20/24. Family aware and in agreement with plan. Status at Discharge Functional status at discharge: uses cane/walker Overall status at discharge: patient is progressing back to baseline Time Spent with Patient Time attestation: Total time spent providing and/or coordinating discharge services: Time spent: Greater than 30 minutes Specific discharge activities: Medication reconciliation, multidisciplinary team discussion, patient/family updates Exam Narrative: Exam Narrative: GEN: Alert and sitting comfortably in bedside chair, mild memory impairment evident HEENT: EOMIs bilaterally, no scleral icterus CV: RRR R: LCTA bilaterally without concerning wheezing Ext: No concerning edema, wearing L knee immobilizer Neuro: Nonfocal Psych: Appropriate Const: Vital Signs, click to edit/add: Vital Signs - 24 hr 02/19/24 15:00 02/19/24 15:00 02/19/24 15:00 Temperature 98.6 F Pulse Rate [Pulse Oximeter] 63 63 Respiratory Rate 18 18 18 Blood Pressure [Le ft Arm] Blood Pressure [Ri ght Arm] 135/59 L Pulse Oximetry 97 97 Oxygen Delivery Me thod Room Air Room Air 02/19/24 19:00 02/19/24 23:00 02/19/24 23:00 Temperature 97.7 F Pulse Rate [Pulse Oximeter] 67 67 Respiratory Rate 18 18 18 Blood Pressure [Le ft Arm] Blood Pressure [Ri ght Arm] 124/56 L Pulse Oximetry 95 93 Oxygen Delivery Me thod Room Air Room Air 02/19/24 23:00 02/20/24 03:00 02/20/24 07:00 Temperature 97.9 F Pulse Rate [Pulse Oximeter] 73 Respiratory Rate 18 16 16 Blood Pressure [Le ft Arm] 135/71 Blood Pressure [Ri ght Arm] Pulse Oximetry 93 97 Oxygen Delivery Me thod Room Air Room Air 02/20/24 07:00 02/20/24 11:00 Temperature 98.1 F Pulse Rate [Pulse Oximeter] 71 Respiratory Rate 16 18 Blood Pressure [Le ft Arm] 119/60 Blood Pressure [Ri ght Arm] Pulse Oximetry 97 94 Oxygen Delivery Me thod Room Air Room Air Discharge Plan Discharge Disposition: [facility] Date of Admission: 02/17/24 19:35 Attending Provider on Discharge: Rosana Kingsley Primary Care Provider: Provider,Not a Local Condition: Improved Anticipated Discharge Date/Time: 02/20/24 12:12 Discharge Medications: New acetaminophen 325 mg Tablet 650 mg PO QID Qty: 60 0RF Continued atorvastatin 80 mg tablet 80 mg PO DAILY lisinopril 40 mg tablet 40 mg PO DAILY omeprazole 20 mg capsule,delayed release(DR/EC) 20 mg PO .2X/WEEK Eliquis 5 mg tablet 5 mg PO BID calcium citrate-vitamin D3 [Calcium Citrate + D] 315 mg-5 mcg (200 unit) tablet 2 tab PO DAILY cetirizine [24Hour Allergy] 10 mg tablet 10 mg PO DAILY PRN fluticasone propionate [24 Hour Allergy Relief] 50 mcg/actuation spray,suspension 2 spray intranasal DAILY PRN Rx Instructions: administer into each nostril metoprolol succinate 50 mg tablet extended release 24 hr 50 mg PO BID spironolactone 25 mg tablet 25 mg PO DAILY Discontinued hydrochlorothiazide 25 mg tablet 25 mg PO DAILY aspirin [Adult Low Dose Aspirin] 81 mg tablet,delayed release (DR/EC) 81 mg PO DAILY Discharge Orders: Discharge Order (Routine); Ordered 02/20/24 Ordered By: Rosana Kingsley Additional Instructions: We are STOPPING your Aspirin (increases bleeding risk) and Hydrochlorothiazide (can decrease potassium and sodium, and your blood pressure has looked great here!) No other changes to home medications. Activity Level: Activity as Tolerated Activity Detail: per therapies Discharge Diet: Regular Follow Up Appointments: Provider,Not a Local [Primary Care Provider] - Forms: [facility] Info Instructions Wound Care: n/a Ostomy Care: n/a Admit to: SNF Discharge Potential: Fair Length of Stay: >90 days Can use facility standing orders?: Yes Code Status: DNR/DNI Rehab Potential: Fair Therapy: Physical Therapy and Occupational Therapy Therapy Orders: Evaluate and Treat and Gait Training Therapy Orders Additional Information: Patellar fracture, has knee immobilizer in place Oxygen: No Urinary Catheter: No Glucose Checks: n/a Next INR: n/a Lab Orders: BMP 7-10 days please Orders are good >30 days: Yes Signature: Rosana Kingsley MD
--- NOTE | 2024-02-20 12:33 | PC.SOCIAL ---
Discharge planning: pupil personnel worker met with pt and her son, Aman, this morning to discuss discharge planning. Pt is in need of short-term rehab after her fall. Pt would like to go to [facility] in [facility] [place]. pupil personnel worker sent the referral to Ally at [facility] via secure email, as this worker had already checked on openings with Ally and she shared they had beds available. [facility] accepted [facility] pt for admission today. The room is a private room with a private bathroom. pupil personnel worker notified pt's son, Aman, and they will accept the room. Pt's son will transport her and will get her to [facility] by 2pm(pt needs to be to [facility] by 2pm). Pre-admission screening was completed and sent to Ally at [facility] via secure email. [phone]. Social work to follow-up as needed.
--- NOTE | 2024-02-20 13:21 | PC.NURSE ---
Pt discharged @ 1317 via wheelchair to [facility], accompanied by son. IV removed. Pt discharge forms signed. Belongings signed.
== END 2024-02-20 13:17 | DRG 563 ==
LOC: ED 16:47 → MEDSURG 17:46
PROVIDERS: Family Medicine; Admitting Provider Internal Medicine; Emergency Provider Emergency Medicine Emergency Medical Services; Visit Provider Internal Medicine
DX: S82.092A Other fracture of left patella, initial encounter for closed fracture (principal); F02.818 Dementia in other diseases classified elsewhere, unspecified severity, with other behavioral disturbance; E87.1 Hypo-osmolality and hyponatremia; W01.0XXA Fall on same level from slipping, tripping and stumbling without subsequent striking against object, initial encounter; I48.91 Unspecified atrial fibrillation; Z79.01 Long term (current) use of anticoagulants; G47.33 Obstructive sleep apnea (adult) (pediatric); R73.03 Prediabetes; I73.9 Peripheral vascular disease, unspecified; G30.9 Alzheimer's disease, unspecified; I25.10 Atherosclerotic heart disease of native coronary artery without angina pectoris; Z58.89 Other problems related to physical environment; I11.9 Hypertensive heart disease without heart failure; Z85.3 Personal history of malignant neoplasm of breast
CPT/HCPCS: 36415; 70450; 72125; 73562; 73700; 80048; 80069; 81001; 83735; 85018; 85027; 87081; 87086; 93005; 97110; 97116; 97161; 97165; 97530; 97535; 99284; 99285; A9270; J7030